=== PATIENT | male | born 1950 | race Caucasian/White ===

== ENCOUNTER 2017-01-05 17:36 | Emergency (ER) | payer MEDICARE, BC, OTHER ==
[~2017-01-05] VITALS: Ht 182.9 cm; Wt 90.9 kg
[~2017-01-05 17:36] MED LIST: AMIO200 PO; CIPR500T93 PO; CLON1 PO; DABI150 PO; PHEN100 PO; PROC60TA PO
[2017-01-05 17:49] VITALS: BP 134/76; PULSE 55; RESP 16; TEMP 98.1; O2SAT 97
--- NOTE | 2017-01-05 17:57 | PD ---
HPI Chief Complaint: Psychiatric Symptoms Time Seen by Provider: 17:45 Travel History International Travel<30 days: No Contact w/Intl Traveler<30days: No Traveled to known affect area: No History of Present Illness HPI This is a 66-year-old male who has a history of documented schizophrenia and prior stroke who presents to the emergency department under a Singh act reportedly having been combative with his correction staff last evening, and having reported that he wanted to kill himself multiple times. Here in the emergency department he says he doesn't remember any of that. He does say he gets depressed from time to time because his daughter at 21. He thinks it' s 2020. He is able to identify that he has at [facility]. He is unable to provide much more history. PFSH Past Medical History Atrial Fibrillation: Yes Cancer: No Cardiovascular Problems: Yes (Afib, HTN, chronic embolism, hyperlipidemia) Cerebrovascular Accident: Yes Dementia: Yes Diabetes: No Diminished Hearing: Yes Deep Vein Thrombosis: Yes Psychiatric: Yes (dementia/SCHIZOPHRENIA, anxiety disorder, depression) Seizures: Yes (EPILEPSY) Triglycerides - High: Yes Past Surgical History AICD: No Body Medical Devices: UNABLE TO OBTAIN Insulin Pump: No Pacemaker: No Social History Alcohol Use: Yes (OCCASIONALLY) Tobacco Use: No Substance Use: No Allergies-Medications (Allergen,Severity, Reaction): Coded Allergies: [place] (Verified Allergy, Unknown, 01/05/17) PT DENIES Reported Meds & Prescriptions Reported Meds & Active Scripts Active Reported Zyprexa (Olanzapine) 5 Mg Tab 5 Mg PO HS Tylenol (Acetaminophen) 325 Mg Tab 325 Mg PO Q4H PRN Procardia XL (Nifedipine) 60 Mg Tab 60 Mg PO DAILY Pradaxa (Dabigatran) 150 Mg Cap 150 Mg PO BID Olanzapine 20 Mg Tab 20 Mg PO HS Milk of Magnesia Liq (Magnesium Hydroxide) 400 Mg/5 Ml Susp 30 Ml PO DAILY PRN Lexapro (Escitalopram Oxalate) 10 Mg Tab 10 Mg PO DAILY Lamictal (Lamotrigine) 200 Mg Tab 200 Mg PO BID Ibuprofen 400 Mg Tab 400 Mg PO Q6H PRN Dilantin (Phenytoin Extended) 100 Mg Cap 200 Mg PO BID Clonazepam 1 Mg Tab 1 Mg PO TID Amiodarone (Amiodarone HCl) 200 Mg Tab 200 Mg PO DAILY Review of Systems ROS Limitations: Poor Historian Physical Exam Narrative GENERAL: Older appearing than stated age, no acute distress SKIN: Focused skin assessment warm and dry. HEAD: Atraumatic. Normocephalic. EYES: Pupils equal and round. No injection or drainage. ENT: Moist mucous membranes NECK: Trachea midline. CARDIOVASCULAR: Regular rate and rhythm. No murmur appreciated. RESPIRATORY: Clear to auscultation. Breath sounds equal bilaterally. GASTROINTESTINAL: Abdomen soft, non-tender, nondistended. MUSCULOSKELETAL: Contracture of the left upper extremity. NEUROLOGICAL: Awake and alert. Mild dysarthria and some expressive aphasia. 3 out of 5 strength in the left upper extremity, 4 out of 5 strength in the left lower extremity PSYCHIATRIC: Intermittently tearful, pleasant and cooperative Data Data Last Documented VS Vital Signs Date Time Temp Pulse Resp B/P Pulse Ox O2 Delivery O2 Flow Rate FiO2 01/05/17 17:49 98.1 55 16 134/76 97 Orders Complete Blood Count With Diff (01/05/17 17:53) Comprehensive Metabolic Panel (01/05/17 17:53) ^ Insert Iv (01/05/17 17:53) Psych Screen (01/05/17 17:53) Drug Screen, Random Urine (01/05/17 17:53) Alcohol (Ethanol) (01/05/17 17:53) Labs Laboratory Tests Test 01/05/17 18:08 White Blood Count 6.4 TH/MM3 Red Blood Count 4.00 MIL/MM3 Hemoglobin 12.4 GM/DL Hematocrit 37.4 % Mean Corpuscular Volume 93.6 FL Mean Corpuscular Hemoglobin 31.0 PG Mean Corpuscular Hemoglobin 33.2 % Concent Red Cell Distribution Width 13.4 % Platelet Count 191 TH/MM3 Mean Platelet Volume 7.3 FL Neutrophils (%) (Auto) 52.7 % Lymphocytes (%) (Auto) 26.1 % Monocytes (%) (Auto) 12.0 % Eosinophils (%) (Auto) 8.5 % Basophils (%) (Auto) 0.7 % Neutrophils # (Auto) 3.4 TH/MM3 Lymphocytes # (Auto) 1.7 TH/MM3 Monocytes # (Auto) 0.8 TH/MM3 Eosinophils # (Auto) 0.5 TH/MM3 Basophils # (Auto) 0.0 TH/MM3 CBC Comment DIFF FINAL Differential Comment Sodium Level 146 MEQ/L Potassium Level 4.1 MEQ/L Chloride Level 110 MEQ/L Carbon Dioxide Level 26.5 MEQ/L Anion Gap 10 MEQ/L Blood Urea Nitrogen 13 MG/DL Creatinine 0.82 MG/DL Estimat Glomerular Filtration 94 ML/MIN Rate Random Glucose 97 MG/DL Calcium Level 8.4 MG/DL Total Bilirubin 0.2 MG/DL Aspartate Amino Transf 12 U/L (AST/SGOT) Alanine Aminotransferase 21 U/L (ALT/SGPT) Alkaline Phosphatase 157 U/L Total Protein 6.3 GM/DL Albumin 3.2 GM/DL Ethyl Alcohol Level LESS THAN 3 MG/DL MDM Medical Decision Making Medical Screen Exam Complete: Yes Emergency Medical Condition: Yes Interpretation(s) Afebrile, no tachycardia, normotensive Mild anemia Mild hypernatremia Differential Diagnosis Dementia, schizophrenia, depression Narrative Course This is a 66-year-old male who has a history of dementia and stroke who presents to the emergency department having reportedly being combative with staff at his correction and making suicidal comments. He does appear somewhat depressed but makes no suicidal comments to me. He is pretty confused. He is cooperative on my exam. He has no active medical issues. He is cleared to be evaluated by psychiatry. Lindsay Hanley MD Jan 05, 2017 17:57
[2017-01-05] MEDS ORDERED: IBUP400T20 PO (18:17)
[2017-01-05] MEDS ORDERED: PRAD150C PO (18:17)
[2017-01-05] MEDS ORDERED: OLAN20TA PO (18:17)
[2017-01-05] MEDS ORDERED: TYLE325T PO (18:17)
[2017-01-05] MEDS ORDERED: LEXA10TA PO (18:17)
[2017-01-05] MEDS ORDERED: MILKSUS PO (18:17)
[2017-01-05] MEDS ORDERED: AMIO200T PO (18:17)
[2017-01-05] MEDS ORDERED: LAMI200T PO (18:17)
[2017-01-05] MEDS ORDERED: ZYPR5TAB PO (18:17)
[2017-01-05] MEDS ORDERED: NIFE1TAB86 PO (18:17)
[2017-01-05] MEDS ORDERED: DILA100C PO (18:17)
[2017-01-05] MEDS ORDERED: CLON1TAB PO (18:17)
[2017-01-05 18:29] LABS: AUTOMATED NEUTROPHIL # 3.4 TH/MM3 (1.8-7.7); BASOPHIL % 0.7 % (0.0-2.0); EOSINOPHIL # 0.5 TH/MM3 (0-0.4); EOSINOPHIL % 8.5 % (0.0-4.0); HEMATOCRIT 37.4 % (39.0-51.0); HEMO FLAGS DIFF FINAL; LYMPH % 26.1 % (9.0-44.0); LYMPHOCYTE # 1.7 TH/MM3 (1.0-4.8); MEAN CELL VOLUME 93.6 FL (80.0-100.0); MEAN CORPUSCULAR HGB CONC 33.2 % (32.0-36.0); NEUT % 52.7 % (16.0-70.0); PLATELET COUNT 191 TH/MM3 (150-450); RED CELL DISTRIBUTION WIDTH 13.4 % (11.6-17.2); WHITE BLOOD COUNT 6.4 TH/MM3 (4.0-11.0)
[2017-01-05 19:05] LABS: ANION GAP 10 MEQ/L (5-15); AST (GOT) 12 U/L (15-37); BICARBONATE 26.5 MEQ/L (21.0-32.0); BLOOD UREA NITROGEN 13 MG/DL (7-18); CHLORIDE 110 MEQ/L (98-107); GLOMERULAR FILTRATION RATE 94 ML/MIN (>89); POTASSIUM 4.1 MEQ/L (3.5-5.1); SODIUM (NA) 146 MEQ/L (136-145)
[2017-01-05 19:08] LABS: ALKALINE PHOSPHATASE 157 U/L (45-117); ALT (GPT) 21 U/L (12-78); TOTAL BILIRUBIN ADULT 0.2 MG/DL (0.2-1.0)
[2017-01-05 20:17] VITALS: BP 126/79; PULSE 55; RESP 16; O2SAT 95
[2017-01-05 23:40] LABS: AMPHETAMINE, URINE NEG (NEG); BARBITURATES, URINE NEG (NEG); COCAINE, URINE NEG (NEG)
[2017-01-06 09:02] VITALS: BP 132/79; PULSE 55; RESP 16; TEMP 97.7; O2SAT 98
== END 2017-01-06 12:47 ==
LOC: NEPD 17:36
DX: F03.90 Unspecified dementia, unspecified severity, without behavioral disturbance, psychotic disturbance, mood disturbance, and anxiety (principal); D64.9 Anemia, unspecified; E87.0 Hyperosmolality and hypernatremia; F20.9 Schizophrenia, unspecified; I48.91 Unspecified atrial fibrillation; E78.5 Hyperlipidemia, unspecified; I10 Essential (primary) hypertension; Z86.718 Personal history of other venous thrombosis and embolism
CPT/HCPCS: 80053; 80307; 85025; 99284

== ENCOUNTER 2017-03-26 07:25 | Inpatient (IN) | payer MEDICARE, BC ==
[2017-03-26] VITALS (13 sets, daily range): BP systolic 97–140; BP diastolic 54–87; PULSE 53–102; RESP 15–19; TEMP 97.3; O2SAT 92–98
[~2017-03-26 07:25] MED LIST changes: -AMIO200 PO; +AMIO200T PO; -CIPR500T93 PO; -CLON1 PO; +CLON1TAB PO; -DABI150 PO; +DILA100C PO; +IBUP400T20 PO; +LAMI200T PO; +LEXA10TA PO; +MILKSUS PO; +NIFE1TAB86 PO; +OLAN20TA PO; -PHEN100 PO; +PRAD150C PO; -PROC60TA PO; +TYLE325T PO; +ZYPR5TAB PO
[2017-03-26] MEDS ORDERED: LORazepam 2 MG/ML VIAL ONE (07:29)
[2017-03-26] MEDS ORDERED: SODIUM CHLOR 0.9% 1000 ML INJ 1,000 ML IV SCH (07:33)
[2017-03-26] MEDS ORDERED: SODIUM CHLORIDE 0.9% FLUSH 5 ML FLUSH IV FLUSH PRN (07:45)
[2017-03-26] MEDS ORDERED: PHENYTOIN INJ 1,500 MG in SODIUM CHLOR 0.9% 250 ML INJ 250 ML IV ONE (07:45)
[2017-03-26] MEDS ORDERED: LORazepam 2 MG/ML VIAL IV PUSH ONE ×2 (08:00→14:00)
[2017-03-26 08:04] LABS: AUTOMATED NEUTROPHIL # 5.8 TH/MM3 (1.8-7.7); BASOPHIL # 0.1 TH/MM3 (0-0.2); BASOPHIL % 0.7 % (0.0-2.0); EOSINOPHIL # 0.5 TH/MM3 (0-0.4); EOSINOPHIL % 3.8 % (0.0-4.0); HEMATOCRIT 44.7 % (39.0-51.0); HEMO FLAGS DIFF FINAL; LYMPH % 39.4 % (9.0-44.0); LYMPHOCYTE # 4.7 TH/MM3 (1.0-4.8); MEAN CELL VOLUME 94.4 FL (80.0-100.0); MEAN CORPUSCULAR HEMOGLOBIN 31.3 PG (27.0-34.0); MEAN CORPUSCULAR HGB CONC 33.2 % (32.0-36.0); MONO % 7.8 % (0.0-8.0); NEUT % 48.3 % (16.0-70.0); PLATELET COUNT 243 TH/MM3 (150-450); RED BLOOD COUNT 4.73 MIL/MM3 (4.50-5.90); RED CELL DISTRIBUTION WIDTH 13.3 % (11.6-17.2); WHITE BLOOD COUNT 12.1 TH/MM3 (4.0-11.0)
[2017-03-26 08:06] LABS: BLOOD, URINE NEG (NEG); GLUCOSE,URINE NEG (NEG); KETONE, URINE NEG (NEG); NITRITE,URINE NEG (NEG); URINE COLOR YELLOW (YELLW/STRAW)
[2017-03-26 08:08] LABS: COMMENT (UR) CATH-CULT NOT IND; CULTURE IF INDICATED CATH CULTURE NOT IND
[2017-03-26] MEDS ORDERED: MIRTA15 PO (08:12)
[2017-03-26] MEDS ORDERED: FOLI1TAB6 PO (08:12)
[2017-03-26] MEDS ORDERED: GABA400C5 PO (08:12)
[2017-03-26] MEDS ORDERED: QUET1TAB8 PO (08:12)
[2017-03-26] MEDS ORDERED: VITA100T54 PO (08:12)
[2017-03-26] MEDS ORDERED: MULT-182 PO (08:12)
[2017-03-26] MEDS ORDERED: AMLO10TA2 PO (08:12)
[2017-03-26] MEDS ORDERED: APIX5TAB PO (08:12)
[2017-03-26 08:16] LABS: PROTHROMBIN TIME - PATIENT 11.4 SEC (9.8-11.6)
--- NOTE | 2017-03-26 08:20 | RADRPT ---
EXAM DATE/TIME: 03/26/2017 08:02 [facility] COMPARISON: CT BRAIN W/O CONTRAST, February 15, 2015, 22:18. INDICATIONS : Altered mental status. RADIATION DOSE: 56.35 CTDIvol (mGy) MEDICAL HISTORY : Seizures. SURGICAL HISTORY : Craniotomy. ENCOUNTER: Initial ACUITY: 1 day PAIN SCALE: Non-responsive LOCATION: cranial TECHNIQUE: Multiple contiguous axial images were obtained of the head. Using automated exposure control and adj ustment of the mA and/or kV according to patient size, radiation dose was kept as low as reasonably a chievable to obtain optimal diagnostic quality images. DICOM format image data is available electro nically for review and comparison. FINDINGS: CEREBRUM: Redemonstration of right frontal, temporal, and posterior parietal encephalomalacia. Redemonstration left temporoparietal encephalomalacia. Associated ex vacuo dilatation of the right lateral ventricle and temporal horn of the left lateral ventricle. The ventricles are otherwise normal in size given de gree of atrophy. No evidence of midline shift, mass lesion, hemorrhage or acute infarction. No extr a-axial fluid collections are seen. POSTERIOR FOSSA: The cerebellum and brainstem are intact. The 4th ventricle is midline. The cerebellopontine angle i s unremarkable. EXTRACRANIAL: The visualized portion of the orbits is intact. SKULL: Postsurgical features of prior right parietal craniotomy. CONCLUSION: 1. Prominent bilateral old ischemic changes. 2. No acute intracranial abnormality or significant interval change. Oskar Alex MD on March 26, 2017 at 8:14 Board Certified Radiologist. This report was verified electronically.
[2017-03-26 08:21] LABS: ALT (GPT) 31 U/L (12-78); ANION GAP 20 MEQ/L (5-15); AST (GOT) 19 U/L (15-37); BICARBONATE 14.9 MEQ/L (21.0-32.0); BLOOD UREA NITROGEN 13 MG/DL (7-18); CHLORIDE 108 MEQ/L (98-107); GLOMERULAR FILTRATION RATE 47 ML/MIN (>89); POTASSIUM 3.1 MEQ/L (3.5-5.1); SODIUM (NA) 143 MEQ/L (136-145)
[2017-03-26 08:31] LABS: ALKALINE PHOSPHATASE 199 U/L (45-117); TOTAL BILIRUBIN ADULT 0.4 MG/DL (0.2-1.0)
[2017-03-26 08:35] LABS: CREATINE KINASE 59 U/L (39-308)
--- NOTE | 2017-03-26 08:41 | RADRPT ---
EXAM DATE/TIME: 03/26/2017 08:25 [facility] COMPARISON: CHEST SINGLE AP, June 24, 2015, 4:06. INDICATIONS : Syncope. MEDICAL HISTORY : Seizures. SURGICAL HISTORY : Unobtainable. ENCOUNTER: Initial ACUITY: 1 day PAIN SCORE: Non-responsive. LOCATION: Bilateral chest FINDINGS: Lungs are slightly hypoaerated. No significant focal pleural or parenchymal opacities. Cardiomediasti nal contours are within normal limits given technique and degree of lung expansion. Remainder of the exam is unchanged. CONCLUSION: No acute cardiopulmonary disease. Oskar Alex MD on March 26, 2017 at 8:38 Board Certified Radiologist. This report was verified electronically.
[2017-03-26] MEDS ORDERED: POTASSIUM CHLOR 20 MEQ PREMIX 100 ML IV ONE (08:45)
[2017-03-26] MEDS ORDERED: SODIUM CHLOR 0.9% 1000 ML INJ 1,000 ML IV ONE (08:45)
[2017-03-26] MEDS ORDERED: MISCELLANEOUS NURSING INFORMATION XX SCH (10:15)
[2017-03-26] MEDS ORDERED: CHLORHEXIDINE GLUCONATE 2 % 1 PACK (2 CLOTHS) TOP PRN (10:15)
[2017-03-26] MEDS ORDERED: POTASSIUM PHOSPHATE MONOBASIC 500 MG TAB PO PRN (10:15)
[2017-03-26] MEDS ORDERED: RESP: ALBUTEROL 2.5 MG/IPRATROPIUM 0.5 MG NEB (PRN) INH (10:15)
[2017-03-26] MEDS ORDERED: MAGNESIUM SULFATE INJ 4 GM in SODIUM CHLORIDE 0.9% INJ 92 ML IV PRN (10:15)
[2017-03-26] MEDS ORDERED: POTASSIUM CHLOR 40 MEQ PREMIX 100 ML IV PRN ×2 (10:15)
[2017-03-26] MEDS ORDERED: POTASSIUM CHLOR 20 MEQ PREMIX 100 ML IV PRN (10:15)
[2017-03-26] MEDS ORDERED: MAGNESIUM SULFATE INJ 2 GM in SODIUM CHLORIDE 0.9% INJ 96 ML IV PRN (10:15)
[2017-03-26] MEDS ORDERED: POTASSIUM PHOSPHATE MONOBASIC 500 MG TAB PO/TUBE PRN (10:15)
[2017-03-26] MEDS ORDERED: SODIUM PHOSPHATE INJ 30 MMOL in SODIUM CHLOR 0.9% 250 ML INJ 240 ML IV PRN (10:15)
[2017-03-26] MEDS ORDERED: POTASSIUM PHOSPHATE INJ 30 MMOL in SODIUM CHLOR 0.9% 250 ML INJ 250 ML IV PRN (10:15)
[2017-03-26] MEDS ORDERED: MAGNESIUM OXIDE 400 MG TAB PO PRN (10:15)
--- NOTE | 2017-03-26 10:27 | PD ---
HPI Chief Complaint: Seizure Time Seen by Provider: 07:33 Travel History International Travel<30 days: No Contact w/Intl Traveler<30days: No Traveled to known affect area: No History of Present Illness HPI 66-year-old male came to the emergency room with history of seizure disorder brought by EMS from a longterm. The history was limited and patient was in no condition to give any meaningful history. As per EMS patient was having a seizure for 20-30 minutes. He has history of seizure and supposed to get Dilantin but he did not get his dose yesterday. Patient was given 2 mg of IM Ativan followed by 2 mg of IV Ativan by EMS. However when he arrived he still seemed like he was having focal seizure of his right upper extremity as well as deviated gaze. He was unresponsive. He has underlying history of stroke as well but I do not know what his underlying baseline mental status is. Vital signs were within acceptable limits. Blood sugar was 120. PFSH Past Medical History Narrative Medical List of his past medical, surgical, social and family history was reviewed from the nursing note. Atrial Fibrillation: Yes Anxiety: Yes Depression: Yes Cancer: No Cardiovascular Problems: Yes (Afib, HTN, chronic embolism, hyperlipidemia) Cerebrovascular Accident: Yes Dementia: Yes Diabetes: No Diminished Hearing: Yes Deep Vein Thrombosis: Yes Hypertension: Yes (UNABLE TO OBTAIN) Psychiatric: Yes (dementia/SCHIZOPHRENIA, anxiety disorder, depression) Schizophrenia: Yes Seizures: Yes (EPILEPSY) Triglycerides - High: Yes ?: Not Past Surgical History AICD: No Body Medical Devices: UNABLE TO OBTAIN Insulin Pump: No Pacemaker: No Social History Alcohol Use: No Tobacco Use: No Substance Use: No Allergies-Medications (Allergen,Severity, Reaction): Coded Allergies: strawberry (Unverified Allergy, Unknown, 03/26/17) PT DENIES Comments List of his allergies reviewed from the nursing note. Reported Meds & Prescriptions Reported Meds & Active Scripts Active Reported Mirtazapine 15 Mg Tab 15 Mg PO HS Gabapentin 400 Mg Cap 400 Cap PO TID Quetiapine (Quetiapine Fumarate) 100 Mg Tab 100 Mg PO BID Vitamin B-1 (Thiamine HCl) 100 Mg Tab 100 Mg PO DAILY [place] Multivitamin with Mineral (Multivitamin with Minerals) 1 Each Tablet 1 Tab PO DAILY Folic Acid 1 Mg Tablet 1 Mg PO DAILY Eliquis (Apixaban) 5 Mg Tab 5 Mg PO DAILY Amlodipine (Amlodipine Besylate) 10 Mg Tab 10 Mg PO DAILY Tylenol (Acetaminophen) 325 Mg Tab 325 Mg PO Q4H PRN Dilantin (Phenytoin Extended) 100 Mg Cap 200 Mg PO BID Amiodarone (Amiodarone HCl) 200 Mg Tab 200 Mg PO DAILY Narrative Medication List of his home medications reviewed from the nursing note. Review of Systems Except as stated in HPI: all other systems reviewed are Neg Physical Exam Narrative GENERAL: Unresponsive, seizing, moderate distress SKIN: Warm and diaphoretic HEAD: Atraumatic. Normocephalic. EYES: Pupils equal and round. No scleral icterus. No injection or drainage. Eyes gazing to the right ENT: No nasal bleeding or discharge. Mucous membranes pink and moist. NECK: Trachea midline. No JVD. CARDIOVASCULAR: Regular rate and rhythm. No murmur appreciated. RESPIRATORY: No accessory muscle use. Clear to auscultation. Breath sounds equal bilaterally. GASTROINTESTINAL: Abdomen soft, non-tender, nondistended. Hepatic and splenic margins not palpable. MUSCULOSKELETAL: No obvious deformities. No clubbing. No cyanosis. No edema. NEUROLOGICAL: GCS of a 12 seizure in the right upper extremity seizure PSYCHIATRIC: Unable to assess Data Data Last Documented VS Vital Signs Date Time Temp Pulse Resp B/P (MAP) Pulse Ox O2 Delivery O2 Flow Rate FiO2 03/26/17 09:30 62 15 97/54 (68) 98 Non-Rebreather 7.00 03/26/17 07:38 97.3 Orders Orders Lorazepam Inj (Ativan Inj) (03/26/17 07:29) Ammonia (03/26/17 07:33) Complete Blood Count With Diff (03/26/17 07:33) Comprehensive Metabolic Panel (03/26/17 07:33) Creatine Kinase (Cpk) (03/26/17 07:33) Prothrombin Time / Inr (Pt) (03/26/17 07:33) Troponin I (03/26/17 07:33) Thyroid Stimulating Hormone (03/26/17 07:33) Urinalysis - C+S If Indicated (03/26/17 07:33) Chest, Single Ap (03/26/17 07:33) Ct Brain W/O Iv Contrast(Rout) (03/26/17 07:33) Blood Glucose (03/26/17 07:33) Ecg Monitoring (03/26/17 07:33) Iv Access Insert/Monitor (03/26/17 07:33) Oximetry (03/26/17 07:33) Sodium Chloride 0.9% Flush (Ns Flush) (03/26/17 07:45) Sodium Chlor 0.9% 1000 Ml Inj (Ns 1000 M (03/26/17 07:33) Phenytoin Inj (Dilantin Inj) (03/26/17 07:45) Phenytoin (Dilantin) (03/26/17 07:33) Lorazepam Inj (Ativan Inj) (03/26/17 08:00) Sodium Chlor 0.9% 1000 Ml Inj (Ns 1000 M (03/26/17 08:45) Potassium Chlor 20 Meq Premix (Kcl 20 Me (03/26/17 08:45) Consult Neurology (03/26/17 ) Cbc No Diff, Includes Plts (03/27/17 05:00) Cbc No Diff, Includes Plts (03/28/17 05:00) Cbc No Diff, Includes Plts (03/29/17 05:00) Cbc No Diff, Includes Plts (03/30/17 05:00) Cbc No Diff, Includes Plts (03/31/17 05:00) Cbc No Diff, Includes Plts (04/01/17 05:00) Cbc No Diff, Includes Plts (04/02/17 05:00) Basic Metabolic Panel (Bmp) (03/27/17 05:00) Basic Metabolic Panel (Bmp) (03/28/17 05:00) Basic Metabolic Panel (Bmp) (03/29/17 05:00) Basic Metabolic Panel (Bmp) (03/30/17 05:00) Basic Metabolic Panel (Bmp) (03/31/17 05:00) Basic Metabolic Panel (Bmp) (04/01/17 05:00) Basic Metabolic Panel (Bmp) (04/02/17 05:00) Inpatient Certification (03/26/17 10:09) Resp Ezpap/Pep Therapy (03/26/17 10:09) Resp Acapella/Pep/Chest Vibra (03/26/17 10:09) Resp Incentive Spirometry (03/26/17 10:09) Nursing Bedside Swallow Assess .ONCE (03/26/17 10:09) ^ Other Nursing Orders (03/26/17 10:09) ^ Other Nursing Orders (03/26/17 10:09) ^ Other Nursing Orders (03/26/17 10:09) Magnesium Oxide (Mag-Ox) (03/26/17 10:15) Magnesium Sulfate Inj (Magnesium Sulfate (03/26/17 10:15) Magnesium Sulfate Inj (Magnesium Sulfate (03/26/17 10:15) Potassium Chlor 20 Meq Premix (Kcl 20 Me (03/26/17 10:15) Potassium Chlor 20 Meq Premix (Kcl 20 Me (03/26/17 10:15) Potassium Chlor 40 Meq Premix (Kcl 40 Me (03/26/17 10:15) Potassium Chlor 40 Meq Premix (Kcl 40 Me (03/26/17 10:15) Potassium Phosphate (K-Phos) (03/26/17 10:15) Potassium Phosphate (K-Phos) (03/26/17 10:15) Potassium Phosphate Inj (Potassium Phosp (03/26/17 10:15) Sodium Phosphate Inj (Sodium Phosphate I (03/26/17 10:15) ^ Medication Admin Instruction (03/26/17 10:09) Notify Dr: Other (03/26/17 10:09) Neuro Checks [email or web address].Q1H (03/26/17 10:09) Code Status (03/26/17 10:09) Activity Bed Rest (03/26/17 10:09) Elevate Head Of Bed (03/26/17 10:09) Sodium Chlor 0.9% 1000 Ml Inj (Ns 1000 M (03/26/17 10:09) Ondansetron Inj (Zofran Inj) (03/26/17 11:00) Albuterol-Ipratropium Neb (Duoneb Neb) (03/26/17 10:15) Electronics Assembler And Tester / Telemetry [email or web address] (03/26/17 10:09) ^ Initiate Protocol (03/26/17 10:09) Instruction (03/26/17 10:09) [facility] Nursing Information (03/26/17 10:15) Chlorhexidine 2% Cloth (Chlorhexidine 2% (03/27/17 04:00) Chlorhexidine 2% Cloth (Chlorhexidine 2% (03/26/17 10:15) Mrsa Pcr Surveillance (03/26/17 10:09) Docusate Sodium-Senna (Iesha-Colace) (03/26/17 21:00) Amiodarone (Cordarone) (03/27/17 09:00) Amlodipine (Norvasc) (03/27/17 09:00) Apixaban (Eliquis) (03/27/17 09:00) Folic Acid (Folate) (03/27/17 09:00) Gabapentin (Neurontin) (03/26/17 13:00) Mirtazapine (Remeron) (03/26/17 21:00) Phenytoin (Dilantin) (03/26/17 21:00) Quetiapine (Seroquel) (03/26/17 21:00) Thiamine (Vit B1) (Vitamin B1) (03/27/17 09:00) Multivitamins-Minerals Therap (Theragran (03/27/17 09:00) Admit Order (Ed Use Only) (03/26/17 10:20) Labs Laboratory Tests Test 03/26/17 07:35 03/26/17 09:00 White Blood Count 12.1 TH/MM3 Red Blood Count 4.73 MIL/MM3 Hemoglobin 14.8 GM/DL Hematocrit 44.7 % Mean Corpuscular Volume 94.4 FL Mean Corpuscular Hemoglobin 31.3 PG Mean Corpuscular Hemoglobin Concent 33.2 % Red Cell Distribution Width 13.3 % Platelet Count 243 TH/MM3 Mean Platelet Volume 7.3 FL Neutrophils (%) (Auto) 48.3 % Lymphocytes (%) (Auto) 39.4 % Monocytes (%) (Auto) 7.8 % Eosinophils (%) (Auto) 3.8 % Basophils (%) (Auto) 0.7 % Neutrophils # (Auto) 5.8 TH/MM3 Lymphocytes # (Auto) 4.7 TH/MM3 Monocytes # (Auto) 0.9 TH/MM3 Eosinophils # (Auto) 0.5 TH/MM3 Basophils # (Auto) 0.1 TH/MM3 CBC Comment DIFF FINAL Differential Comment Prothrombin Time 11.4 SEC Prothromb Time International Ratio 1.0 RATIO Urine Color YELLOW Urine Turbidity CLEAR Urine pH 7.0 Urine Specific [place]ienzi 1.018 Urine Protein NEG mg/dL Urine Glucose (UA) NEG mg/dL Urine Ketones NEG mg/dL Urine Occult Blood NEG Urine Nitrite NEG Urine Bilirubin NEG Urine Urobilinogen LESS THAN 2.0 MG/DL Urine Leukocyte Esterase NEG Urine RBC 2 /hpf Urine WBC 1 /hpf Microscopic Urinalysis Comment CATH-CULT NOT IND Blood Urea Nitrogen 13 MG/DL Creatinine 1.48 MG/DL Random Glucose 150 MG/DL Total Protein 7.2 GM/DL Albumin 3.4 GM/DL Calcium Level 8.7 MG/DL Alkaline Phosphatase 199 U/L Aspartate Amino Transf (AST/SGOT) 19 U/L Alanine Aminotransferase (ALT/SGPT) 31 U/L Total Bilirubin 0.4 MG/DL Sodium Level 143 MEQ/L Potassium Level 3.1 MEQ/L Chloride Level 108 MEQ/L Carbon Dioxide Level 14.9 MEQ/L Anion Gap 20 MEQ/L Estimat Glomerular Filtration Rate 47 ML/MIN Total Creatine Kinase 59 U/L Troponin I LESS THAN 0.02 NG/ML Thyroid Stimulating Hormone 3rd Gen 0.120 uIU/ML Phenytoin (Dilantin) Level 6.6 MCG/ML Ammonia 27 MCMOL/L MDM Medical Decision Making Medical Screen Exam Complete: Yes Emergency Medical Condition: Yes Medical Record Reviewed: Yes Interpretation(s) Twelve-lead EKG was reviewed by me. Normal sinus rhythm, first-degree AV block , lateral ST segment depression, normal axis. Heart rate of 96 bpm. Differential Diagnosis Status epilepticus, intracranial bleed, electrolyte abnormality Narrative Course 10 AM blood test results are back. Patient's potassium was low which I have ordered for placement. He has some renal insufficiency which could be from dehydration. Patient has metabolic acidosis probably from prolonged seizure. I had to give him 2 mg of IV Ativan after arrival initially after which patient has not had anymore seizures. Head CT is essentially negative for anything acute. I have given him a liter of fluid bolus. Patient continues to have a GCS of 10. I'm uncomfortable admitting him to the regular floor. I discussed the case with the stack clerk and he has agreed and accepted the case. Patient' s Dilantin level was low. I've given him a loading dose of 15 mg/kg. Critical Care Narrative Aggregate critical care time was 60 minutes. Time to perform other separately billable procedures was not included in the critical care time. My time did not include minutes spent treating any other patients simultaneously or on activities that did not directly contribute to the patient's treatment. The services I provided to this patient were to treat and/or prevent clinically significant deterioration that could result in: Status epilepticus, airway monitoring I provided critical care services requiring my management, as noted below: Chart data review, documentation time, medication orders and management, vital sign assessments/reviewing monitor data, ordering and reviewing lab tests, ordering and interpreting/reviewing x-rays and diagnostic studies, care of the patient and discussion of the patient with the admitting physicians. Procedures EKG Prior to Arrival: No Physician Communication Physician Communication Dr. Escobar Diagnosis Primary Impression: Status epilepticus Additional Impressions: Altered mental status Qualified Codes: R40.1 - Stupor Dehydration Metabolic acidosis Admitting Information Admitting Physician Requests: it Randell Beard MD Mar 26, 2017 10:27
[2017-03-26] MEDS ORDERED: ONDANSETRON HCL 4 MG/2 ML VIAL IV PRN (11:00)
[2017-03-26] MEDS: SODIUM CHLOR 0.9% 1000 ML INJ 1,000 ML IV SCH ×2 (11:30→22:39)
[2017-03-26] MEDS: GABAPENTIN 400 MG CAP PO SCH ×2 (13:35→18:00)
[2017-03-26] MEDS ORDERED: PROPOFOL 500 MG/50 ML INJ 50 ML ONE (13:56)
[2017-03-26] MEDS ORDERED: HALOPERIDOL LACTATE 5 MG/ML AMP IV PRN (14:00)
[2017-03-26] MEDS ORDERED: DEXMEDETOMIDINE HCL 200 MCG/2 ML VIAL ONE (14:10)
[2017-03-26] MEDS ORDERED: DEXMEDETOMIDINE INJ 1,000 MCG in SODIUM CHLOR 0.9% 250 ML INJ 240 ML IV SCH (14:15)
--- NOTE | 2017-03-26 16:08 | PD.CONS ---
History of Present Illness Service Neurology Consult Requested By [facility] Reason for Consult seizures, confusion Primary Care Physician Unknown History of Present Illness 66-year-old male came to the emergency room with history of seizure disorder brought by EMS from a [facility] for seizure activity. hx of dementia, TBI, schizophrenia. Apparently non-compliant with medications. Stopped taking his sz meds x 1-2 days. dil 6.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 on eliquis for afib and hx of stroke in the past. at baseline, has confusion, hallucinates, limited left ue movement per caregiver next to him. PFSH Atrial Fibrillation: Yes Anxiety: Yes Depression: Yes Cardiovascular Problems: Yes (Afib, HTN, chronic embolism, hyperlipidemia) Cerebrovascular Accident: Yes Dementia: Yes Diminished Hearing: Yes Deep Vein Thrombosis: Yes Hypertension: Yes (UNABLE TO OBTAIN) Psychiatric: Yes (dementia/SCHIZOPHRENIA, anxiety disorder, depression) Schizophrenia: Yes Seizures: Yes (EPILEPSY) Past Surgical History AICD: No Body Medical Devices: UNABLE TO OBTAIN Insulin Pump: No Pacemaker: No Social History Alcohol Use: No Tobacco Use: No Substance Use: No Allergies-Medications (Allergen,Severity, Reaction): Coded Allergies: strawberry (Unverified Allergy, Unknown, 03/26/17) Comments List of his allergies reviewed from the nursing note. Reported Meds & Prescriptions Reported Meds & Active Scripts Active Reported Mirtazapine 15 Mg Tab 15 Mg PO HS Gabapentin 400 Mg Cap 400 Cap PO TID Quetiapine (Quetiapine Fumarate) 100 Mg Tab 100 Mg PO BID Vitamin B-1 (Thiamine HCl) 100 Mg Tab 100 Mg PO DAILY Rocco Multivitamin with Mineral (Multivitamin with Minerals) 1 Each Tablet 1 Tab PO DAILY Folic Acid 1 Mg Tablet 1 Mg PO DAILY Eliquis (Apixaban) 5 Mg Tab 5 Mg PO DAILY Amlodipine (Amlodipine Besylate) 10 Mg Tab 10 Mg PO DAILY Tylenol (Acetaminophen) 325 Mg Tab 325 Mg PO Q4H PRN Dilantin (Phenytoin Extended) 100 Mg Cap 200 Mg PO BID Amiodarone (Amiodarone HCl) 200 Mg Tab 200 Mg PO DAILY Narrative Medication List of his home medications reviewed from the nursing note. Review of Systems Except as stated in HPI: pt somnolent, unable to give Review of Systems All other ROS: ROS reviewed as documented in chart Past Family Social History Allergies: Coded Allergies: strawberry (Unverified Allergy, Unknown, 03/26/17) PT DENIES Active Ordered Medications Current Medications Medications (Trade) Dose Ordered Sig/Eduardo Route Start Time Stop Time Status Last Admin (NS Flush) 2 ml UNSCH PRN IV FLUSH 03/26/17 07:45 (Mag-Ox) 800 mg UNSCH PRN PO 03/26/17 10:15 Magnesium Sulfate 4 gm/Sodium Chloride 100 ml @ 50 mls/hr UNSCH PRN IV 03/26/17 10:15 Magnesium Sulfate 2 gm/Sodium Chloride 100 ml @ 50 mls/hr UNSCH PRN IV 03/26/17 10:15 Potassium Chloride 100 ml @ 50 mls/hr Q2H PRN IV 03/26/17 10:15 Potassium Chloride 100 ml @ 50 mls/hr Q2H PRN IV 03/26/17 10:15 Potassium Chloride 100 ml @ 50 mls/hr Q2H PRN IV 03/26/17 10:15 Potassium Chloride 100 ml @ 25 mls/hr UNSCH PRN IV 03/26/17 10:15 (K-Phos) 2,000 mg Q4H PRN PO 03/26/17 10:15 (K-Phos) 2,000 mg UNSCH PRN PO/TUBE 03/26/17 10:15 Potassium Phosphate 30 mmol/ Sodium Chloride 260 ml @ 42 mls/hr UNSCH PRN IV 03/26/17 10:15 Sodium Phosphate 30 mmol/Sodium Chloride 250 ml @ 42 mls/hr UNSCH PRN IV 03/26/17 10:15 Sodium Chloride 1,000 ml @ 84 mls/hr [id number] IV 03/26/17 10:09 03/26/17 11:30 (Zofran Inj) 4 mg Q6H PRN IV 03/26/17 11:00 (Duoneb Neb) 1 ampule Q2HR NEB PRN INH 03/26/17 10:15 Miscellaneous Information 1 [id number] XX 03/26/17 10:15 (Chlorhexidine 2% Cloth) 3 pack Taper DAILY@04 TOP 03/27/17 04:00 03/23/18 03:59 (Chlorhexidine 2% Cloth) 3 pack UNSCH PRN TOP 03/26/17 10:15 (Iesha-Colace) 1 tab BID PO 03/26/17 21:00 (Cordarone) 200 mg DAILY PO 03/27/17 09:00 (Norvasc) 10 mg DAILY PO 03/27/17 09:00 (Folate) 1 mg DAILY PO 03/27/17 09:00 (Neurontin) 400 mg TID PO 03/26/17 13:00 03/26/17 13:35 (Remeron) 15 mg HS PO 03/26/17 21:00 (Dilantin) 200 mg BID PO 03/26/17 21:00 (SEROquel) 100 mg BID PO 03/26/17 21:00 (Vitamin B1) 100 mg DAILY PO 03/27/17 09:00 (Theragran M Tab) 1 tab DAILY PO 03/27/17 09:00 (Eliquis) 2.5 mg BID PO 03/26/17 21:00 (Haldol Inj) 5 mg Q4H PRN IV 03/26/17 14:00 Dexmedetomidine HCl 1000 mcg/ Sodium Chloride 250 ml @ 0 mls/hr TITRATE IV 03/26/17 14:15 03/26/17 14:58 Exam I&O / VS 03/26/17 03/26/17 03/27/17 15:00 23:00 07:00 Intake Total 2100 ml Output Total 600 ml Balance 1500 ml Intake IV Total 2100 ml Output Urine Total 600 ml # Voids 1 Vital Signs Date Time Temp Pulse Resp B/P (MAP) Pulse Ox O2 Delivery O2 Flow Rate FiO2 03/26/17 13:45 03/26/17 13:30 62 19 140/87 (104) 97 Nasal Cannula 2.00 03/26/17 12:30 64 19 134/82 (99) 97 Nasal Cannula 2.00 03/26/17 11:30 63 18 126/81 (96) 97 Nasal Cannula 2.00 03/26/17 10:30 61 18 108/61 (77) 98 Nasal Cannula 2.00 03/26/17 09:30 62 15 97/54 (68) 98 Non-Rebreather 7.00 03/26/17 08:30 20 96 Non-Rebreather 03/26/17 08:30 61 19 99/55 (70) 94 Non-Rebreather 15.00 03/26/17 07:38 97.3 98 18 128/73 (91) 98 2.00 03/26/17 07:38 96 18 128/73 (91) 96 Nasal Cannula 3.00 03/26/17 07:31 97.3 102 18 132/80 (97) 92 Exam Comments somnolent, on precedex per rn, arousable, grimaces and states a few words, ou 3mm sluggish, not following, neck supple, boles to gravity, planterflexor, no clonus Review/Management Diagnosis/Plan: (1) Seizure disorder ICD Codes: G40.909 - Seizure disorder Status: Acute Plan: not compliant with medication/ renal failure also, on seroquel which could lower sz threshold recs eeg iv cerebryx low tsh- per medical follow exam (2) Vascular dementia ICD Codes: F01.50 - Vascular dementia without behavioral disturbance Status: Acute (3) Atrial fibrillation ICD Codes: I48.91 - Atrial fibrillation Status: Acute (4) History of traumatic brain injury ICD Codes: Z87.820 - History of traumatic brain injury Status: Acute (5) Schizophrenia ICD Codes: F20.9 - Schizophrenia Status: Acute Problem Qualifiers (1) Vascular dementia: Qualified Codes: F01.51 - Vascular dementia with behavioral disturbance Cedrick Miner MD Mar 26, 2017 16:07
[2017-03-26] MEDS ORDERED: FOSPHENYTOIN INJ 1,000 MGPE in SODIUM CHLORIDE 0.9% INJ 50 ML IV ONE (16:30)
--- NOTE | 2017-03-26 19:48 | HHI.HP ---
HPI Service Critical Care Medicine Primary Care Physician Unknown Admission Diagnosis status epilepticus, altered mental status Diagnosis: Chief Complaint: seizures Travel History International Travel<30 Days: No Contact w/Intl Traveler <30 Da: No Traveled to Known Affected Are: No History of Present Illness This is a 66yM with history of schizophrenia, afib, and seizure disorders who presented to the ED from his SNF after he had medication noncompliance x 2 days and then presented with seizures. Patient was given serial ativan doses. he was protecting his airway, but he was somnolent. he is admitted to ICU for close monitoring. unfortunately, no information can be obtained from the patient. I evaluated him on admission to the ICU. On admission to the ICU, he was not somnolent but aggressive and combative. Review of Systems ROS Limitations: Clinical Condition, Combative, Psychotic Past Family Social History Allergies: Coded Allergies: strawberry (Unverified Allergy, Unknown, 03/26/17) PT DENIES Past Medical History Patient's past medical history is unobtainable due to his clinical condition. Per chart review: Atrial fibrillation Anxiety Depression Hypertension Chronic embolism's Hyperlipidemia Dementia Prior CVA History of DVT Schizophrenia Epilepsy Past Surgical History Past surgical history is unobtainable from the patient due to his clinical condition. Reported Medications Complete home medication list is unobtainable from the patient due to his clinical condition. Per chart review: Mirtazapine 15 Mg Tab 15 Mg PO HS Gabapentin 400 Mg Cap 400 Cap PO TID Quetiapine (Quetiapine Fumarate) 100 Mg Tab 100 Mg PO BID Vitamin B-1 (Thiamine HCl) 100 Mg Tab 100 Mg PO DAILY Rocco Multivitamin with Mineral (Multivitamin with Minerals) 1 Each Tablet 1 Tab PO DAILY Folic Acid 1 Mg Tablet 1 Mg PO DAILY Eliquis (Apixaban) 5 Mg Tab 5 Mg PO DAILY Amlodipine (Amlodipine Besylate) 10 Mg Tab 10 Mg PO DAILY Tylenol (Acetaminophen) 325 Mg Tab 325 Mg PO Q4H PRN Dilantin (Phenytoin Extended) 100 Mg Cap 200 Mg PO BID Amiodarone (Amiodarone HCl) 200 Mg Tab 200 Mg PO DAILY Active Ordered Medications See MAR Family History Unobtainable from patient due to his clinical condition Social History Unobtainable from patient due to his clinical condition. Per chart review: Denied alcohol, tobacco, or drugs. Physical Exam Vital Signs Vital Signs Date Time Temp Pulse Resp B/P (MAP) Pulse Ox O2 Delivery O2 Flow Rate FiO2 03/26/17 13:45 03/26/17 13:30 62 19 140/87 (104) 97 Nasal Cannula 2.00 03/26/17 12:30 64 19 134/82 (99) 97 Nasal Cannula 2.00 03/26/17 11:30 63 18 126/81 (96) 97 Nasal Cannula 2.00 03/26/17 10:30 61 18 108/61 (77) 98 Nasal Cannula 2.00 03/26/17 09:30 62 15 97/54 (68) 98 Non-Rebreather 7.00 03/26/17 08:30 20 96 Non-Rebreather 03/26/17 08:30 61 19 99/55 (70) 94 Non-Rebreather 15.00 03/26/17 07:38 97.3 98 18 128/73 (91) 98 2.00 03/26/17 07:38 96 18 128/73 (91) 96 Nasal Cannula 3.00 03/26/17 07:31 97.3 102 18 132/80 (97) 92 Physical Exam GENERAL: Middle-aged male, lying in bed, combative, in 4-point restraints HEENT: Normocephalic. Atraumatic. Pupils equal, round, reactive, conjugate. Mucous membranes are moist NECK: Trachea is midline. There is no JVD. CHEST: unlabored, equal chest rise. CARDIOVASCULAR: tachycardic rate, regular rhythm. afib by tele. ABDOMEN: Soft, nontender, nondistended. No guarding. MUSCULOSKELETAL: Pulses 2+. No peripheral edema. NEUROLOGICAL: RASS +3. combative. moves all extremities Laboratory Laboratory Tests Test 03/26/17 07:35 03/26/17 09:00 03/26/17 14:40 03/26/17 15:15 White Blood Count 12.1 Red Blood Count 4.73 Hemoglobin 14.8 Hematocrit 44.7 Mean Corpuscular Volume 94.4 Mean Corpuscular Hemoglobin 31.3 Mean Corpuscular Hemoglobin Concent 33.2 Red Cell Distribution Width 13.3 Platelet Count 243 Mean Platelet Volume 7.3 Neutrophils (%) (Auto) 48.3 Lymphocytes (%) (Auto) 39.4 Monocytes (%) (Auto) 7.8 Eosinophils (%) (Auto) 3.8 Basophils (%) (Auto) 0.7 Neutrophils # (Auto) 5.8 Lymphocytes # (Auto) 4.7 Monocytes # (Auto) 0.9 Eosinophils # (Auto) 0.5 Basophils # (Auto) 0.1 CBC Comment DIFF FINAL Differential Comment Prothrombin Time 11.4 Prothromb Time International Ratio 1.0 Urine Color YELLOW Urine Turbidity CLEAR Urine pH 7.0 Urine Specific Stevenson 1.018 Urine Protein NEG Urine Glucose (UA) NEG Urine Ketones NEG Urine Occult Blood NEG Urine Nitrite NEG Urine Bilirubin NEG Urine Urobilinogen LESS THAN 2.0 Urine Leukocyte Esterase NEG Urine RBC 2 Urine WBC 1 Microscopic Urinalysis Comment CATH-CULT NOT IND Blood Urea Nitrogen 13 Creatinine 1.48 Random Glucose 150 Total Protein 7.2 Albumin 3.4 Calcium Level 8.7 Alkaline Phosphatase 199 Aspartate Amino Transf (AST/SGOT) 19 Alanine Aminotransferase (ALT/SGPT) 31 Total Bilirubin 0.4 Sodium Level 143 Potassium Level 3.1 3.9 Chloride Level 108 Carbon Dioxide Level 14.9 Anion Gap 20 Estimat Glomerular Filtration Rate 47 Total Creatine Kinase 59 Troponin I LESS THAN 0.02 Thyroid Stimulating Hormone 3rd Gen 0.120 Phenytoin (Dilantin) Level 6.6 Ammonia 27 Nasal Screen MRSA (PCR) MRSA NOT DETECTED Magnesium Level 1.8 Result Diagram: 03/26/17 0735 03/26/17 1515 Caprini VTE Risk Assessment Caprini VTE Risk Assessment: Mod/High Risk (score >= 2) Caprini Risk Assessment Model Point Value = 1 Point Value = 2 Point Value = 3 Point Value = 5 Age 41-60 Minor surgery BMI > 25 kg/m2 Swollen legs Varicose veins or History of unexplained or recurrent spontaneous Oral contraceptives or hormone replacement Sepsis (< 1 month) Serious lung disease, including pneumonia (< 1 month) Abnormal pulmonary function Acute myocardial infarction Congestive heart failure (< 1 month) History of inflammatory bowel disease Medical patient at bed rest Age 61-74 Arthroscopic surgery Major open surgery (> 45 min) Laparoscopic surgery (> 45 min) Malignancy Confined to bed (> 72 hours) Immobilizing plaster cast Central venous access Age >= 75 History of VTE Family history of VTE Factor V Leiden Prothrombin [id number] Lupus anticoagulant Anticardiolipin antibodies Elevated serum homocysteine Heparin-induced thrombocytopenia Other congenital or acquired thrombophilia Stroke (< 1 month) Elective arthroplasty Hip, pelvis, or leg fracture Acute spinal cord injury (< 1 month) Prophylaxis Regimen Total Risk Factor Score Risk Level Prophylaxis Regimen 0-1 Low Early ambulation 2 Moderate Order ONE of the following: *Sequential Compression Device (SCD) *Heparin 5000 units SQ BID 3-4 Higher Order ONE of the following medications: *Heparin 5000 units SQ TID *Enoxaparin/Lovenox 40 mg SQ daily (WT < 150 kg, CrCl > 30 mL/min) *Enoxaparin/Lovenox 30 mg SQ daily (WT < 150 kg, CrCl > 10-29 mL/min) *Enoxaparin/Lovenox 30 mg SQ BID (WT < 150 kg, CrCl > 30 mL/min) AND/OR *Sequential Compression Device (SCD) 5 or more Highest Order ONE of the following medications: *Heparin 5000 units SQ TID (Preferred with Epidurals) *Enoxaparin/Lovenox 40 mg SQ daily (WT < 150 kg, CrCl > 30 mL/min) *Enoxaparin/Lovenox 30 mg SQ daily (WT < 150 kg, CrCl > 10-29 mL/min) *Enoxaparin/Lovenox 30 mg SQ BID (WT < 150 kg, CrCl > 30 mL/min) AND *Sequential Compression Device (SCD) Assessment and Plan Assessment and Plan Assessment: 66yM with medication noncompliance presents with subtherapeutic phenytoin levels and seizures. Now complicated by acute life-threatening agitated delirium. Acute agitated delirium -- prn ativan -- continue restraints -- patient became hypotensive with precedex, so we will avoid -- haldol 5mg iv q4h prn -- frequent neuro checks Seizures -- subtherapeutic dilantin level -- restart home phenytoin -- neuro consult Schizophrenia -- restart home meds -- consult psych Admit to ICU NPO while agitated Code Status Full Code Mac Escobar MD Mar 26, 2017 19:48
[2017-03-26] MEDS: MIRTAZAPINE 15 MG TAB PO SCH (20:32)
[2017-03-26] MEDS: APIXABAN 2.5 MG TABLET PO SCH (20:32)
[2017-03-26] MEDS: DOCUSATE SODIUM 50 MG/SENNA 8.6 MG TAB PO SCH (20:33)
[2017-03-26] MEDS ORDERED: QUEtiapine FUMARATE 100 MG TAB PO SCH (21:00)
[2017-03-26] MEDS ORDERED: FOSPHENYTOIN SODIUM 100 MG PE/2 ML VIAL IV SCH (21:00)
[2017-03-26] MEDS ORDERED: PHENYTOIN SODIUM 100 MG CAP PO SCH (21:00)
[2017-03-26] MEDS: ZIPRASIDONE MESYLATE 20 MG VIAL IM PRN (21:07)
[2017-03-26] MEDS: HALOPERIDOL LACTATE 5 MG/ML AMP IV PRN ×2 (21:07→22:03)
[2017-03-26] MEDS: LORazepam 2 MG/ML VIAL IV PUSH PRN (22:38)
[2017-03-27] VITALS (14 sets, daily range): BP systolic 135; BP diastolic 73; PULSE 53–78; RESP 24; TEMP 98.2; O2SAT 95–98
[2017-03-27] MEDS: HALOPERIDOL LACTATE 5 MG/ML AMP IV PRN (02:04)
[2017-03-27] MEDS: CHLORHEXIDINE GLUCONATE 2 % 1 PACK (2 CLOTHS) TOP SCH (04:00)
[2017-03-27] MEDS: LORazepam 2 MG/ML VIAL IV PUSH PRN ×4 (05:07→17:28)
--- NOTE | 2017-03-27 05:31 | HHI.CCPN ---
Subjective Remarks/Hospital Course Hospital Course: This is a 66yM with history of schizophrenia, afib, and seizure disorders who presented to the ED from his SNF after he had medication noncompliance x 2 days and then presented with seizures. Patient was given serial ativan doses. he was protecting his airway, but he was somnolent. he is admitted to ICU for close monitoring. unfortunately, no information can be obtained from the patient. I evaluated him on admission to the ICU. On admission to the ICU, he was not somnolent but aggressive and combative. Subjective: 03/27: remains combative. required haldol, ativan and geodon prn overnight to control agitation. this morning resting more comfortably, but RASS +1 on awakening. still requiring restraints. Objective Vital Signs Date Time Temp Pulse Resp B/P (MAP) Pulse Ox O2 Delivery O2 Flow Rate FiO2 03/27/17 04:00 63 03/26/17 13:45 03/26/17 13:30 19 97 Nasal Cannula 2.00 03/26/17 07:38 97.3 Result Diagram: 03/26/17 0735 03/26/17 1515 Objective Remarks GENERAL: Middle-aged male, lying in bed, in 4-point restraints, resting on my evaluation HEENT: Normocephalic. Atraumatic. Pupils equal, round, reactive, conjugate. Mucous membranes are moist NECK: Trachea is midline. There is no JVD. CHEST: unlabored, equal chest rise. CARDIOVASCULAR: normal rate, regular rhythm. ABDOMEN: Soft, nontender, nondistended. No guarding. MUSCULOSKELETAL: Pulses 2+. No peripheral edema. NEUROLOGICAL: RASS -1, but +1 on arousing. still agitated, CAM+. moves all extremities A/P Assessment and Plan Assessment: 66yM with medication noncompliance presents with subtherapeutic phenytoin levels and seizures. Now complicated by acute life-threatening agitated delirium. Acute agitated delirium -- continue ativan, haldol, geodon -- continue restraints -- patient became hypotensive with precedex, so we will use judiciously or avoid if possible. -- haldol 5mg iv q4h prn -- frequent neuro checks Seizures -- subtherapeutic Dilantin level -- restart home phenytoin -- neuro consult -- cerebyx load -- repeat Dilantin level today. Schizophrenia -- continue home meds -- consult psych Remain in ICU given his severe agitation. NPO while agitated for risk of oversedation. Mac Escobar MD Mar 27, 2017 05:31
[2017-03-27 05:54] LABS: BICARBONATE 21.6 MEQ/L (21.0-32.0); POTASSIUM 3.6 MEQ/L (3.5-5.1)
[2017-03-27] MEDS ORDERED: APIXABAN 5 MG TABLET PO SCH (09:00)
--- NOTE | 2017-03-27 09:10 | PD.PSY.CON ---
Provisional Diagnosis Admission Date Mar 26, 2017 at 10:21 [place]. Vascular dementia with behavioral disturbances f 01.51 History of Present Illness Service Psychiatry Consult Requested By Attending Lizandro Reason for Consult Assessment Primary Care Physician Unknown HPI Patient is a 66-year-old white male known to us from prior contacts caring a diagnosis of dementia with behavioral disturbances. Appears his been admitted with this episode noncompliance with medications there is SNF leading to multiple seizures. Asked to see patient due to behavioral problems in the intensive care unit. Patient's chart reviewed EMR reviewed. Discussed this with patient's nurse. It appears she has been quite agitated showing resistance to medication needing 4-point restraints at this time. It appears he has been prescribed Remeron 15 mg at at bedtime, Seroquel 100 mg twice a day. Along with multiple other medications. Here in the hospital she is also been ordered Geodon when necessary and Haldol when necessary. Patient seen by me with nurse. He is awake to alert diffusely confused to place time and situation though does answer to his name. He is agitated irritable wanting to leave to go home with his and children. Unable to give any other significant history. Though he says he is in [facility] they grew up around [facility]. In any event at the present time feel patient would better be served better behavioral control with scheduled doses of Haldol. The patient is accepting liquids by mouth without difficulty. I recommend continuation of the Remeron at bedtime, consolidation of the Seroquel to 20 mg at bedtime, and add Haldol elixir 5 mg by mouth 3 times a day. Would suggest judicious use of benzodiazepines. At this time patient is not a candidate for transfer to the psychiatric unit. Thanks for the consult psychiatric service will follow-up on a when necessary basis Review of Systems ROS Limitations: Clinical Condition, Altered Mental Status, Other (severely demented) Past Family Social History Coded Allergies: strawberry (Unverified Allergy, Unknown, 03/26/17) PT DENIES Past Medical History Please see med surge assessments long history dementia Reported Medications Mirtazapine (Mirtazapine) 15 Mg Tab, 15 MG PO HS for Depression Control, #30 TAB 0 Refills 03/26/17 Gabapentin (Gabapentin) 400 Mg Cap, 400 CAP PO TID, #30 CAP 0 Refills 03/26/17 Quetiapine (Quetiapine) 100 Mg Tab, 100 MG PO BID, #60 TAB 0 Refills 03/26/17 Thiamine (Vitamin B-1) 100 Mg Tab, 100 MG PO DAILY for Nutritional Supplement, TAB 0 Refills 03/26/17 Multivitamin with Minerals (Rocco Multivitamin with Mineral) 1 Each Tablet, 1 TAB PO DAILY 03/26/17 Folic Acid (Folic Acid) 1 Mg Tablet, 1 MG PO DAILY 03/26/17 Apixaban (Eliquis) 5 Mg Tab, 5 MG PO DAILY for Blood Clot Prevention, #60 TAB 0 Refills 03/26/17 Amlodipine (Amlodipine) 10 Mg Tab, 10 MG PO DAILY for Blood Pressure Management , #30 TAB 0 Refills 03/26/17 Acetaminophen (Tylenol) 325 Mg Tab, 325 MG PO Q4H Y for PAIN SCALE 1 TO 10, TAB 0 Refills 01/05/17 Phenytoin Extended (Dilantin) 100 Mg Cap, 200 MG PO BID for Control Seizures, # 180 CAP 0 Refills 01/05/17 Amiodarone (Amiodarone) 200 Mg Tab, 200 MG PO DAILY for Regulate Heart Beat, # 30 TAB 0 Refills 01/05/17 Discontinued Reported Medications Olanzapine (Zyprexa) 5 Mg Tab, 5 MG PO HS, #30 TAB 0 Refills 01/05/17 Nifedipine ER 24 HR (Procardia XL) 60 Mg Tab, 60 MG PO DAILY, #30 TAB 0 Refills 01/05/17 Dabigatran (Pradaxa) 150 Mg Cap, 150 MG PO BID for Blood Clot Prevention, #60 CAP 0 Refills 01/05/17 Olanzapine (Olanzapine) 20 Mg Tab, 20 MG PO HS, #30 TAB 0 Refills 01/05/17 Magnesium Hydroxide Liq (Milk of Magnesia Liq) 400 Mg/5 Ml Susp, 30 ML PO DAILY Y for INDIGESTION OR UPSET STOMACH, #1 BOTTLE 0 Refills 01/05/17 Escitalopram (Lexapro) 10 Mg Tab, 10 MG PO DAILY, #30 TAB 0 Refills 01/05/17 Lamotrigine (Lamictal) 200 Mg Tab, 200 MG PO BID for Control Seizures, #60 TAB 0 Refills 01/05/17 Ibuprofen (Ibuprofen) 400 Mg Tab, 400 MG PO Q6H Y for PAIN SCALE 1 TO 2, TAB 0 Refills 01/05/17 Clonazepam (Clonazepam) 1 Mg Tab, 1 MG PO TID, #90 TAB 0 Refills 01/05/17 Current Medications Medications (Trade) Dose Ordered Sig/Eduardo Route Start Time Stop Time Status Last Admin (NS Flush) 2 ml UNSCH PRN IV FLUSH 03/26/17 07:45 (Mag-Ox) 800 mg UNSCH PRN PO 03/26/17 10:15 Magnesium Sulfate 4 gm/Sodium Chloride 100 ml @ 50 mls/hr UNSCH PRN IV 03/26/17 10:15 Magnesium Sulfate 2 gm/Sodium Chloride 100 ml @ 50 mls/hr UNSCH PRN IV 03/26/17 10:15 Potassium Chloride 100 ml @ 50 mls/hr Q2H PRN IV 03/26/17 10:15 Potassium Chloride 100 ml @ 50 mls/hr Q2H PRN IV 03/26/17 10:15 Potassium Chloride 100 ml @ 50 mls/hr Q2H PRN IV 03/26/17 10:15 Potassium Chloride 100 ml @ 25 mls/hr UNSCH PRN IV 03/26/17 10:15 (K-Phos) 2,000 mg Q4H PRN PO 03/26/17 10:15 (K-Phos) 2,000 mg UNSCH PRN PO/TUBE 03/26/17 10:15 Potassium Phosphate 30 mmol/ Sodium Chloride 260 ml @ 42 mls/hr UNSCH PRN IV 03/26/17 10:15 Sodium Phosphate 30 mmol/Sodium Chloride 250 ml @ 42 mls/hr UNSCH PRN IV 03/26/17 10:15 Sodium Chloride 1,000 ml @ 84 mls/hr [id number] IV 03/26/17 10:09 03/26/17 22:39 (Zofran Inj) 4 mg Q6H PRN IV 03/26/17 11:00 (Duoneb Neb) 1 ampule Q2HR NEB PRN INH 03/26/17 10:15 Miscellaneous Information 1 Q361D XX 03/26/17 10:15 (Chlorhexidine 2% Cloth) 3 pack Taper DAILY@04 TOP 03/27/17 04:00 03/23/18 03:59 03/27/17 04:00 (Chlorhexidine 2% Cloth) 3 pack UNSCH PRN TOP 03/26/17 10:15 (Iesha-Colace) 1 tab BID PO 03/26/17 21:00 03/26/17 20:33 (Cordarone) 200 mg DAILY PO 03/27/17 09:00 (Norvasc) 10 mg DAILY PO 03/27/17 09:00 (Folate) 1 mg DAILY PO 03/27/17 09:00 (Neurontin) 400 mg TID PO 03/26/17 13:00 03/26/17 13:35 (Remeron) 15 mg HS PO 03/26/17 21:00 03/26/17 20:32 (SEROquel) 100 mg BID PO 03/26/17 21:00 03/26/17 20:32 (Vitamin B1) 100 mg DAILY PO 03/27/17 09:00 (Theragran M Tab) 1 tab DAILY PO 03/27/17 09:00 (Eliquis) 2.5 mg BID PO 03/26/17 21:00 03/26/17 20:32 (Haldol Inj) 5 mg Q1H PRN IV 03/26/17 21:00 03/27/17 02:04 (Geodon Inj) 10 mg Q12H PRN IM 03/26/17 21:00 03/26/17 21:07 (Ativan Inj) 2 mg Q1H PRN IV PUSH 03/26/17 21:00 03/27/17 07:24 Family History Alone at this time due to patient's cognitive impairment Social History Patient lives in [facility] Patient's Strengths (min. 2) Patient able access healthcare patient responding to medication Physical Exam Please see med surge assessments Vital Signs Vital Signs Date Time Temp Pulse Resp B/P (MAP) Pulse Ox O2 Delivery O2 Flow Rate FiO2 03/27/17 08:00 96 Nasal Cannula 2.00 03/27/17 06:00 53 03/26/17 13:45 03/26/17 13:30 19 03/26/17 07:38 97.3 I/O 03/27/17 03/27/17 03/28/17 08:00 16:00 00:00 Intake Total 1116 ml Output Total 2100 ml Balance -984 ml Lab Results Test 03/26/17 09:00 03/26/17 14:40 03/26/17 15:15 03/27/17 04:52 Ammonia 27 MCMOL/L Nasal Screen MRSA (PCR) MRSA NOT DETECTED Potassium Level 3.9 MEQ/L 3.6 MEQ/L Magnesium Level 1.8 MG/DL Blood Urea Nitrogen 8 MG/DL Creatinine 0.71 MG/DL Random Glucose 95 MG/DL Calcium Level 8.8 MG/DL Sodium Level 144 MEQ/L Chloride Level 113 MEQ/L Carbon Dioxide Level 21.6 MEQ/L Anion Gap 9 MEQ/L Estimat Glomerular Filtration Rate 111 ML/MIN Phenytoin (Dilantin) Level 33.2 MCG/ML Mental Status Examination Drowsy to alert irritable angry labile white male appears stated age vaguely oriented only to person Appearance Clean neat for situation Speech: Stuttering, Incoherent Orientation: Person (vaguely) Memory: Impaired (describe) (secondary to significant cognitive impairment) Thought Process: Other (markedly disorganized) Thought Content: Bizarre thinking Language Very poor Fund of Knowledge Very poor Hallucination Type: None Attention and Concentration: Other (very poor) Suicidal Ideation: No Previous Suicide Attempts: No Homicidal Ideation: No Previous Homicide Attempts: No Insight: Poor Judgment: Poor Affect: Other (increased range and intensity) Mood: Angry, Irritable Motor Activity: Abnormal gait-specify (patient and restraints in bed unable to assess) Assessment & Plan Problem List: (1) Vascular dementia ICD Codes: F01.50 - Vascular dementia without behavioral disturbance Status: Acute Assessment & Plan Estimated LOS: days patient has dementia behavioral disturbances need to be addressed. The help with treatment. Would suggest discontinuing the when necessary Haldol and order Haldol 5 mg elixir 3 times a day, consolidate Seroquel to 20 mg at at bedtime, okay to continue the mirtazapine. Will follow on a when necessary basis Discharge Planning At this time patient does not meet criteria for an acute inpatient psychiatric hospitalization Problem Qualifiers (1) Vascular dementia: Qualified Codes: F01.51 - Vascular dementia with behavioral disturbance Jose Cohen MD Mar 27, 2017 09:09
[2017-03-27] MEDS: HALOPERIDOL LACTATE ORAL CONC 10 MG/5 ML CUP PO SCH ×3 (10:00→17:28)
[2017-03-27] MEDS: MULTIVITAMINS/MINERALS THERAPEUTIC TAB PO SCH (11:42)
[2017-03-27] MEDS: FOLIC ACID 1 MG TAB PO SCH (11:42)
[2017-03-27] MEDS: THIAMINE HCL 100 MG TAB PO SCH (11:42)
[2017-03-27] MEDS: APIXABAN 2.5 MG TABLET PO SCH ×2 (11:42→22:50)
[2017-03-27] MEDS: GABAPENTIN 400 MG CAP PO SCH ×3 (11:42→17:28)
[2017-03-27] MEDS: DOCUSATE SODIUM 50 MG/SENNA 8.6 MG TAB PO SCH ×2 (11:43→22:51)
[2017-03-27] MEDS: SODIUM CHLOR 0.9% 1000 ML INJ 1,000 ML IV SCH ×2 (11:44→22:51)
[2017-03-27] MEDS: AMIODARONE 200 MG TAB PO SCH (11:48)
[2017-03-27 12:41] LABS: HEMATOCRIT 45.2 % (39.0-51.0); MEAN CORPUSCULAR HEMOGLOBIN 31.2 PG (27.0-34.0); MEAN CORPUSCULAR HGB CONC 33.2 % (32.0-36.0); PLATELET COUNT 122 TH/MM3 (150-450); RED BLOOD COUNT 4.81 MIL/MM3 (4.50-5.90); RED CELL DISTRIBUTION WIDTH 13.3 % (11.6-17.2); WHITE BLOOD COUNT 10.9 TH/MM3 (4.0-11.0)
[2017-03-27 12:42] LABS: REVIEW FLAG FINAL
--- NOTE | 2017-03-27 20:02 | EKG ---
Date Performed: 03/26/2017 Time Performed: 12:30:08 PTAGE: 66 years EKG: Sinus rhythm WITH FIRST DEGREE AV BLOCK NONSPECIFIC T-WAVE ABNORMALITY ABNORMAL ECG PREVIOUS TRACING : 03/26/2017 07.45 Compared to the previous tracing ST changes no longer prese nt DOCTOR: Joe Frye Interpretating Date/Time 03/27/2017 20:02:17
--- NOTE | 2017-03-27 20:12 | MG ---
cc: ANYI CROONA MD Lab No: Date: 03/27/17 Age: 66 Sex: M Race: DATE OF [address] Miner MEDICAL HISTORY Stroke, dementia, seizures, hypertension, a-fib, hyperlipidemia, DVT, GERD, depression, anxiety, schizophrenia, multiple falls. MEDICATIONS 1. Remeron. 2. Seroquel. 3. Eliquis. 4. Cerebyx. 5. Haldol. 6. Geodon. DESCRIPTION At the beginning of the EEG recording the patient was asleep with background slowing and K complexes. During the recording when the patient was awake, there was a background activity of 8-9 Hz alpha of low voltage, bilateral symmetrical. Hyperventilation was not done. Photic stimulation did not elicit a driving response. There were intermittent spikes and sharp waves bilateral mainly in the left parietal region. No electrographic seizures were noted. INTERPRETATION This is an abnormal awake and sleep EEG. There was noted intermittent epileptogenic sharp waves and spike waves throughout recording mainly at the left hemisphere. No electrographic seizures were noted. Clinical correlation is recommended. Anyi Corona MD RGO/EO /3:54 PM /8:02 PM MTDNeeraj
--- NOTE | 2017-03-27 20:20 | EKG ---
Date Performed: 03/26/2017 Time Performed: 07:45:34 PTAGE: 66 years EKG: Sinus rhythm WITH FIRST DEGREE AV BLOCK ST DEVIATION AND MODERATE T-WAVE ABNORMALITY ABNORMAL ECG PREVIOUS TRACING : 11/27/2014 15.19 Compared to the previous tracing ST-T changes are present DOCTOR: Joe Frey Interpretating Date/Time 03/27/2017 20:19:57
[2017-03-27] MEDS: QUEtiapine FUMARATE 100 MG TAB PO SCH (22:50)
[2017-03-27] MEDS: MIRTAZAPINE 15 MG TAB PO SCH (22:50)
[2017-03-28] VITALS (14 sets, daily range): BP systolic 112–139; BP diastolic 66–84; PULSE 64–77; RESP 13–30; TEMP 97.3–98.3; O2SAT 94–100
[2017-03-28] MEDS: CHLORHEXIDINE GLUCONATE 2 % 1 PACK (2 CLOTHS) TOP SCH (04:00)
[2017-03-28 05:21] LABS: HEMATOCRIT 40.8 % (39.0-51.0); MEAN CELL VOLUME 91.5 FL (80.0-100.0); MEAN CORPUSCULAR HEMOGLOBIN 31.3 PG (27.0-34.0); MEAN CORPUSCULAR HGB CONC 34.2 % (32.0-36.0); PLATELET COUNT 154 TH/MM3 (150-450); RED BLOOD COUNT 4.45 MIL/MM3 (4.50-5.90); RED CELL DISTRIBUTION WIDTH 13.1 % (11.6-17.2); REVIEW FLAG FINAL; WHITE BLOOD COUNT 7.9 TH/MM3 (4.0-11.0)
[2017-03-28 05:43] LABS: BICARBONATE 25.2 MEQ/L (21.0-32.0); POTASSIUM 3.4 MEQ/L (3.5-5.1)
--- NOTE | 2017-03-28 09:12 | HHI.PR ---
Review/Management Diagnosis/Plan: (1) Seizure disorder ICD Codes: G40.909 - Seizure disorder Status: Acute Plan: not compliant with medication/ renal failure also, on seroquel which could lower sz threshold on haldol 5mg tid per psych elixer recs dilantin on hold as level >20 follow levels ok for 5th floor with tele bianca tower fall precautions p.t. (2) Vascular dementia ICD Codes: F01.50 - Vascular dementia without behavioral disturbance Status: Acute (3) Atrial fibrillation ICD Codes: I48.91 - Atrial fibrillation Status: Acute (4) History of traumatic brain injury ICD Codes: Z87.820 - History of traumatic brain injury Status: Acute (5) Schizophrenia ICD Codes: F20.9 - Schizophrenia Status: Acute Plan: seen by psych Subjective Subjective Comments No acute events reported No headache No chest pain Active Medications Current Medications Medications (Trade) Dose Ordered Sig/Eduardo Route Start Time Stop Time Status Last Admin (NS Flush) 2 ml UNSCH PRN IV FLUSH 03/26/17 07:45 (Mag-Ox) 800 mg UNSCH PRN PO 03/26/17 10:15 Magnesium Sulfate 4 gm/Sodium Chloride 100 ml @ 50 mls/hr UNSCH PRN IV 03/26/17 10:15 Magnesium Sulfate 2 gm/Sodium Chloride 100 ml @ 50 mls/hr UNSCH PRN IV 03/26/17 10:15 Potassium Chloride 100 ml @ 50 mls/hr Q2H PRN IV 03/26/17 10:15 Potassium Chloride 100 ml @ 50 mls/hr Q2H PRN IV 03/26/17 10:15 Potassium Chloride 100 ml @ 50 mls/hr Q2H PRN IV 03/26/17 10:15 Potassium Chloride 100 ml @ 25 mls/hr UNSCH PRN IV 03/26/17 10:15 (K-Phos) 2,000 mg Q4H PRN PO 03/26/17 10:15 (K-Phos) 2,000 mg UNSCH PRN PO/TUBE 03/26/17 10:15 Potassium Phosphate 30 mmol/ Sodium Chloride 260 ml @ 42 mls/hr UNSCH PRN IV 03/26/17 10:15 Sodium Phosphate 30 mmol/Sodium Chloride 250 ml @ 42 mls/hr UNSCH PRN IV 03/26/17 10:15 Sodium Chloride 1,000 ml @ 84 mls/hr [id number] IV 03/26/17 10:09 03/27/17 22:51 (Zofran Inj) 4 mg Q6H PRN IV 03/26/17 11:00 (Duoneb Neb) 1 ampule Q2HR NEB PRN INH 03/26/17 10:15 Miscellaneous Information 1 Q361D XX 03/26/17 10:15 (Chlorhexidine 2% Cloth) 3 pack Taper DAILY@04 TOP 03/27/17 04:00 03/23/18 03:59 03/28/17 04:00 (Chlorhexidine 2% Cloth) 3 pack UNSCH PRN TOP 03/26/17 10:15 (Iesha-Colace) 1 tab BID PO 03/26/17 21:00 03/27/17 22:51 (Cordarone) 200 mg DAILY PO 03/27/17 09:00 03/27/17 11:48 (Norvasc) 10 mg DAILY PO 03/27/17 09:00 03/27/17 11:42 (Folate) 1 mg DAILY PO 03/27/17 09:00 03/27/17 11:42 (Neurontin) 400 mg TID PO 03/26/17 13:00 03/27/17 17:28 (Remeron) 15 mg HS PO 03/26/17 21:00 03/27/17 22:50 (Vitamin B1) 100 mg DAILY PO 03/27/17 09:00 03/27/17 11:42 (Theragran M Tab) 1 tab DAILY PO 03/27/17 09:00 03/27/17 11:42 (Eliquis) 2.5 mg BID PO 03/26/17 21:00 03/27/17 22:50 (Geodon Inj) 10 mg Q12H PRN IM 03/26/17 21:00 03/26/17 21:07 (Ativan Inj) 2 mg Q1H PRN IV PUSH 03/26/17 21:00 03/27/17 17:28 (SEROquel) 200 mg HS PO 03/27/17 21:00 03/27/17 22:50 (Haldol Lactate Liq) 5 mg TID PO 03/27/17 10:00 03/27/17 17:28 Allergies Allergies Coded Allergies strawberry (Unverified Allergy, Unknown, 03/26/17) Review of Systems All other ROS: ROS reviewed as documented in chart Exam I&O / VS Vital Signs Date Time Temp Pulse Resp B/P (MAP) Pulse Ox O2 Delivery O2 Flow Rate FiO2 03/28/17 06:00 67 03/28/17 04:00 68 03/28/17 04:00 97.9 68 14 112/68 (83) 96 03/28/17 02:00 68 03/28/17 00:00 98.1 71 13 128/67 (87) 95 03/28/17 00:00 71 03/27/17 22:00 74 03/27/17 20:42 95 21 03/27/17 20:00 78 03/27/17 20:00 98.2 78 24 135/73 (93) 98 03/27/17 18:00 74 03/27/17 17:00 70 03/27/17 16:00 71 03/27/17 14:00 68 03/27/17 12:00 68 03/27/17 10:00 65 Exam Comments resting, easily arousable, states 1-2 words and falls back asleep, ou 3mm sluggish, not following, neck supple, boles to gravity, planterflexor, no clonus Objective Micro and Labs Laboratory Tests Test 03/27/17 11:45 03/28/17 04:56 White Blood Count 10.9 7.9 Red Blood Count 4.81 4.45 Hemoglobin 15.0 14.0 Hematocrit 45.2 40.8 Mean Corpuscular Volume 94.0 91.5 Mean Corpuscular Hemoglobin 31.2 31.3 Mean Corpuscular Hemoglobin Concent 33.2 34.2 Red Cell Distribution Width 13.3 13.1 Platelet Count 122 154 Mean Platelet Volume 8.7 6.9 Blood Urea Nitrogen 4 Creatinine 0.75 Random Glucose 78 Calcium Level 8.5 Sodium Level 144 Potassium Level 3.4 Chloride Level 111 Carbon Dioxide Level 25.2 Anion Gap 8 Estimat Glomerular Filtration Rate 104 Phenytoin (Dilantin) Level 24.2 Problem Qualifiers (1) Vascular dementia: Qualified Codes: F01.51 - Vascular dementia with behavioral disturbance Cedrick Miner MD Mar 28, 2017 09:12
[2017-03-28] MEDS: SODIUM CHLOR 0.9% 1000 ML INJ 1,000 ML IV SCH ×2 (09:49→23:30)
[2017-03-28] MEDS: HALOPERIDOL LACTATE ORAL CONC 10 MG/5 ML CUP PO SCH ×3 (10:32→17:26)
[2017-03-28] MEDS: POTASSIUM CHLOR 20 MEQ PREMIX 100 ML IV PRN ×2 (10:32→13:42)
[2017-03-28] MEDS: MULTIVITAMINS/MINERALS THERAPEUTIC TAB PO SCH (10:33)
[2017-03-28] MEDS: AMIODARONE 200 MG TAB PO SCH (10:33)
[2017-03-28] MEDS: DOCUSATE SODIUM 50 MG/SENNA 8.6 MG TAB PO SCH ×2 (10:33→21:19)
[2017-03-28] MEDS: GABAPENTIN 400 MG CAP PO SCH ×3 (10:33→17:26)
[2017-03-28] MEDS: FOLIC ACID 1 MG TAB PO SCH (10:33)
[2017-03-28] MEDS: LORazepam 2 MG/ML VIAL IV PUSH PRN ×4 (10:33→21:21)
[2017-03-28] MEDS: THIAMINE HCL 100 MG TAB PO SCH (10:33)
[2017-03-28] MEDS: APIXABAN 2.5 MG TABLET PO SCH ×2 (10:34→21:20)
--- NOTE | 2017-03-28 10:45 | RADRPT ---
EXAM DATE/TIME: 03/28/2017 09:20 [place] COMPARISON: MRI BRAIN W/O CONTRAST, November 28, 2014, 11:32. MRA CAROTIDS W CONTRAST, November 28, 2014, 11:32. INDICATIONS : CVA. MEDICAL HISTORY : Seizures. Dementia. Cerebrovascular disease. TBI. SURGICAL HISTORY : Craniotomy. ENCOUNTER: Subsequent ACUITY: 2 day PAIN SCORE: Nonresponsive. LOCATION: head. Please note a normal MRA of the brain does not entirely exclude the possibility of a small aneurysm, nor the possibility of distal intracranial vessel disease. TECHNIQUE: 3D time of flight MRA was performed. Source images, multiplanar STS MIP, and 3D volume MIP reconstru ctions were reviewed. FINDINGS: The examination is very limited. The distal internal carotid arteries are patent. The basilar is marcano nt. The proximal anterior and middle cerebral circulation appears patent but again evaluation is jeff rely limited due to motion artifact. The posterior cerebral circulation is patent. CONCLUSION: 1. Very limited examination. The intracranial circulation is very difficult to visualize distal to th e M1 segments. Centrally it appears patent. Osorio Zhou MD on March 28, 2017 at 10:42 Board Certified Radiologist. This report was verified electronically.
--- NOTE | 2017-03-28 14:36 | HHI.PYPN ---
Subjective Remarks Patient seen in his room patient sleeping at this time. Discussed patient with his nurse. It appears his behaviors have softened somewhat, though he was up much of the night admitted a when necessary of Ativan. However staff does notice his somewhat calmer. I would recommend continuing psychotropics as scheduled at the present time. As mentioned yesterday patient is not at this time candidate for HP see. We'll continue to follow on the unit Review of Systems ROS Limitations: Clinical Condition, Altered Mental Status Objective Alert: No (somewhat sedated and napping at the present time) [place]: Person (napping) Mood: Other (napping) Affect: Other (napping) Memory Intact: Comment (napping) Hallucinations: Other (napping) Delusions: No (napping) Delusion Type: Other (napping) Suicidal: Ideation (napping) Homicidal: Ideation (napping) Insight/Judgment Very poor, napping Labs Test 03/28/17 04:56 White Blood Count 7.9 TH/MM3 Red Blood Count 4.45 MIL/MM3 Hemoglobin 14.0 GM/DL Hematocrit 40.8 % Mean Corpuscular Volume 91.5 FL Mean Corpuscular Hemoglobin 31.3 PG Mean Corpuscular Hemoglobin Concent 34.2 % Red Cell Distribution Width 13.1 % Platelet Count 154 TH/MM3 Mean Platelet Volume 6.9 FL Blood Urea Nitrogen 4 MG/DL Creatinine 0.75 MG/DL Random Glucose 78 MG/DL Calcium Level 8.5 MG/DL Sodium Level 144 MEQ/L Potassium Level 3.4 MEQ/L Chloride Level 111 MEQ/L Carbon Dioxide Level 25.2 MEQ/L Anion Gap 8 MEQ/L Estimat Glomerular Filtration Rate 104 ML/MIN Phenytoin (Dilantin) Level 24.2 MCG/ML Vitals/IOs Vital Signs Date Time Temp Pulse Resp B/P (MAP) Pulse Ox O2 Delivery O2 Flow Rate FiO2 03/28/17 11:15 96 21 03/28/17 06:00 67 03/28/17 04:00 97.9 14 112/68 (83) 03/27/17 08:00 Nasal Cannula 2.00 Intake and Output 03/28/17 03/28/17 03/29/17 08:00 16:00 00:00 Intake Total 1000 ml 100 ml Output Total 550 ml Balance 450 ml 100 ml Assessment & Plan Problem List: (1) Vascular dementia ICD Codes: F01.50 - Vascular dementia without behavioral disturbance Status: Acute Assessment & Plan Estimated LOS: days patient behavior appears to be softening somewhat recommend continuing Haldol no change at the present time Justification for Cont. Inpt. Patient continues to monitor by medical service Discharge Planning To be determined Problem Qualifiers (1) Vascular dementia: Qualified Codes: F01.51 - Vascular dementia with behavioral disturbance Jose Cohen MD Mar 28, 2017 14:36
--- NOTE | 2017-03-28 14:51 | HHI.CCPN ---
Subjective Remarks/Hospital Course Hospital Course: This is a 66yM with history of schizophrenia, afib, and seizure disorders who presented to the ED from his SNF after he had medication noncompliance x 2 days and then presented with seizures. Patient was given serial ativan doses. he was protecting his airway, but he was somnolent. he is admitted to ICU for close monitoring. unfortunately, no information can be obtained from the patient. I evaluated him on admission to the ICU. On admission to the ICU, he was not somnolent but aggressive and combative. Subjective: 03/27: remains combative. required haldol, ativan and geodon prn overnight to control agitation. this morning resting more comfortably, but RASS +1 on awakening. still requiring restraints. 03/28: much less combative. now somnolent, but arousable. still CAM+ and delirious. RASS -1 on my evaluation. still requiring restraints. Objective Vital Signs Date Time Temp Pulse Resp B/P (MAP) Pulse Ox O2 Delivery O2 Flow Rate FiO2 03/28/17 11:15 96 21 03/28/17 06:00 67 03/28/17 04:00 97.9 14 112/68 (83) 03/27/17 08:00 Nasal Cannula 2.00 Intake and Output 03/28/17 03/28/17 03/29/17 08:00 16:00 00:00 Intake Total 1000 ml 100 ml Output Total 550 ml Balance 450 ml 100 ml Result Diagram: 03/28/17 0456 03/28/17 0456 Objective Remarks GENERAL: Middle-aged male, lying in bed, in 4-point restraints, resting on my evaluation HEENT: Normocephalic. Atraumatic. Pupils equal, round, reactive, conjugate. Mucous membranes are moist NECK: Trachea is midline. There is no JVD. CHEST: unlabored, equal chest rise. CARDIOVASCULAR: normal rate, regular rhythm. ABDOMEN: Soft, nontender, nondistended. No guarding. MUSCULOSKELETAL: Pulses 2+. No peripheral edema. NEUROLOGICAL: RASS -1, but +1 on arousing. still agitated, CAM+. moves all extremities A/P Assessment and Plan Assessment: 66yM with medication noncompliance presents with subtherapeutic phenytoin levels and seizures. agitation is better, but still not ready for inpatient psych. could be a good med/psych candidate. agree with scheduled haldol po and continue prn meds. also agree with minimizing benzos if possible. Acute agitated delirium -- continue haldol, shauna -- continue ativan, but agree with psych recommendation to minimize this. -- continue restraints -- patient became hypotensive with precedex, so we will use judiciously or avoid if possible. -- haldol 5mg iv q4h prn -- frequent neuro checks Seizures -- subtherapeutic Dilantin level on presentation, now supratherapeutic. continue to trend daily levels. -- neuro consult, will allow them to guide antiepileptic therapy. Schizophrenia -- continue home meds -- psych following could advance diet if patient less agitated today. will consult hospitalist service as patient no longer meets critical care criteria. Mac Escobar MD Mar 28, 2017 14:51
[2017-03-28] MEDS: QUEtiapine FUMARATE 100 MG TAB PO SCH (21:20)
[2017-03-28] MEDS: MIRTAZAPINE 15 MG TAB PO SCH (21:26)
[2017-03-29] VITALS (10 sets, daily range): BP systolic 132–163; BP diastolic 78–93; PULSE 65–100; RESP 11–35; TEMP 97.8–99.2; O2SAT 97–100
[2017-03-29] MEDS: LORazepam 2 MG/ML VIAL IV PUSH PRN ×5 (03:29→20:47)
[2017-03-29] MEDS: CHLORHEXIDINE GLUCONATE 2 % 1 PACK (2 CLOTHS) TOP SCH (03:29)
[2017-03-29 05:51] LABS: HEMATOCRIT 40.8 % (39.0-51.0); MEAN CELL VOLUME 90.8 FL (80.0-100.0); MEAN CORPUSCULAR HEMOGLOBIN 31.4 PG (27.0-34.0); MEAN CORPUSCULAR HGB CONC 34.6 % (32.0-36.0); PLATELET COUNT 156 TH/MM3 (150-450); RED BLOOD COUNT 4.49 MIL/MM3 (4.50-5.90); RED CELL DISTRIBUTION WIDTH 13.1 % (11.6-17.2); REVIEW FLAG FINAL; WHITE BLOOD COUNT 6.7 TH/MM3 (4.0-11.0)
[2017-03-29 06:17] LABS: BICARBONATE 20.8 MEQ/L (21.0-32.0); POTASSIUM 3.6 MEQ/L (3.5-5.1)
--- NOTE | 2017-03-29 06:56 | HHI.PR ---
Review/Management Diagnosis/Plan: (1) Seizure disorder ICD Codes: G40.909 - Seizure disorder Status: Acute Plan: not compliant with medication/ renal failure also, on seroquel which could lower sz threshold on haldol 5mg tid per psych elixer recs dilantin 21. restart dilantin 150mg bid once levels closer to 15 consider reducing haldol to 2.5 ok for 5th floor with tele bianca tower d/c planning fall precautions (2) Vascular dementia ICD Codes: F01.50 - Vascular dementia without behavioral disturbance Status: Acute (3) Atrial fibrillation ICD Codes: I48.91 - Atrial fibrillation Status: Acute (4) History of traumatic brain injury ICD Codes: Z87.820 - History of traumatic brain injury Status: Acute (5) Schizophrenia ICD Codes: F20.9 - Schizophrenia Status: Acute Plan: seen by psych Subjective Subjective Comments No acute events reported No headache No chest pain No dyspnea Active Medications Current Medications Medications (Trade) Dose Ordered Sig/Eduardo Route Start Time Stop Time Status Last Admin (NS Flush) 2 ml UNSCH PRN IV FLUSH 03/26/17 07:45 (Mag-Ox) 800 mg UNSCH PRN PO 03/26/17 10:15 Magnesium Sulfate 4 gm/Sodium Chloride 100 ml @ 50 mls/hr UNSCH PRN IV 03/26/17 10:15 Magnesium Sulfate 2 gm/Sodium Chloride 100 ml @ 50 mls/hr UNSCH PRN IV 03/26/17 10:15 Potassium Chloride 100 ml @ 50 mls/hr Q2H PRN IV 03/26/17 10:15 Potassium Chloride 100 ml @ 50 mls/hr Q2H PRN IV 03/26/17 10:15 03/28/17 13:42 Potassium Chloride 100 ml @ 50 mls/hr Q2H PRN IV 03/26/17 10:15 Potassium Chloride 100 ml @ 25 mls/hr UNSCH PRN IV 03/26/17 10:15 (K-Phos) 2,000 mg Q4H PRN PO 03/26/17 10:15 (K-Phos) 2,000 mg UNSCH PRN PO/TUBE 03/26/17 10:15 Potassium Phosphate 30 mmol/ Sodium Chloride 260 ml @ 42 mls/hr UNSCH PRN IV 03/26/17 10:15 Sodium Phosphate 30 mmol/Sodium Chloride 250 ml @ 42 mls/hr UNSCH PRN IV 03/26/17 10:15 Sodium Chloride 1,000 ml @ 84 mls/hr [id number] IV 03/26/17 10:09 03/28/17 23:30 (Zofran Inj) 4 mg Q6H PRN IV 03/26/17 11:00 (Duoneb Neb) 1 ampule Q2HR NEB PRN INH 03/26/17 10:15 Miscellaneous Information 1 Q361D XX 03/26/17 10:15 (Chlorhexidine 2% Cloth) 3 pack Taper DAILY@04 TOP 03/27/17 04:00 03/23/18 03:59 03/29/17 03:29 (Chlorhexidine 2% Cloth) 3 pack UNSCH PRN TOP 03/26/17 10:15 (Iesha-Colace) 1 tab BID PO 03/26/17 21:00 03/28/17 21:19 (Cordarone) 200 mg DAILY PO 03/27/17 09:00 03/28/17 10:33 (Norvasc) 10 mg DAILY PO 03/27/17 09:00 03/28/17 10:33 (Folate) 1 mg DAILY PO 03/27/17 09:00 03/28/17 10:33 (Neurontin) 400 mg TID PO 03/26/17 13:00 03/28/17 17:26 (Remeron) 15 mg HS PO 03/26/17 21:00 03/28/17 21:26 (Vitamin B1) 100 mg DAILY PO 03/27/17 09:00 03/28/17 10:33 (Theragran M Tab) 1 tab DAILY PO 03/27/17 09:00 03/28/17 10:33 (Eliquis) 2.5 mg BID PO 03/26/17 21:00 03/28/17 21:20 (Geodon Inj) 10 mg Q12H PRN IM 03/26/17 21:00 03/26/17 21:07 (Ativan Inj) 2 mg Q1H PRN IV PUSH 03/26/17 21:00 03/29/17 03:29 (SEROquel) 200 mg HS PO 03/27/17 21:00 03/28/17 21:20 (Haldol Lactate Liq) 5 mg TID PO 03/27/17 10:00 03/28/17 17:26 Allergies Allergies Coded Allergies strawberry (Unverified Allergy, Unknown, 03/26/17) Review of Systems All other ROS: ROS reviewed as documented in chart Exam I&O / VS Vital Signs Date Time Temp Pulse Resp B/P (MAP) Pulse Ox O2 Delivery O2 Flow Rate FiO2 03/29/17 06:00 67 03/29/17 04:00 80 03/29/17 04:00 98.1 65 15 148/89 (108) 98 03/29/17 02:00 68 03/29/17 00:00 78 03/29/17 00:00 98.2 78 12 163/90 (114) 97 03/28/17 22:00 72 03/28/17 20:13 98 03/28/17 20:00 97.3 77 24 120/73 (89) 96 03/28/17 20:00 77 03/28/17 18:00 75 03/28/17 16:00 98.0 77 30 125/66 (85) 100 03/28/17 16:00 77 03/28/17 14:00 72 03/28/17 12:00 65 03/28/17 12:00 98.1 65 13 139/84 (102) 97 03/28/17 11:15 96 21 03/28/17 10:00 68 03/28/17 08:00 64 03/28/17 08:00 98.3 64 16 122/70 (87) 94 Exam Comments alert, ox to self, states 1-2 words and falls back asleep, ou 3mm sluggish, not following, neck supple, boles to gravity except diminshed in left ue, spastic, planterflexor, no clonus Objective Micro and Labs Laboratory Tests Test 03/29/17 05:28 White Blood Count 6.7 Red Blood Count 4.49 Hemoglobin 14.1 Hematocrit 40.8 Mean Corpuscular Volume 90.8 Mean Corpuscular Hemoglobin 31.4 Mean Corpuscular Hemoglobin Concent 34.6 Red Cell Distribution Width 13.1 Platelet Count 156 Mean Platelet Volume 7.1 Blood Urea Nitrogen 4 Creatinine 0.50 Random Glucose 75 Calcium Level 8.6 Sodium Level 144 Potassium Level 3.6 Chloride Level 112 Carbon Dioxide Level 20.8 Anion Gap 11 Estimat Glomerular Filtration Rate 166 Phenytoin (Dilantin) Level 21.7 Problem Qualifiers (1) Vascular dementia: Qualified Codes: F01.51 - Vascular dementia with behavioral disturbance Cedrick Miner MD Mar 29, 2017 06:55
[2017-03-29] MEDS: DOCUSATE SODIUM 50 MG/SENNA 8.6 MG TAB PO SCH ×2 (07:28→20:46)
[2017-03-29] MEDS: AMIODARONE 200 MG TAB PO SCH (07:28)
[2017-03-29] MEDS: HALOPERIDOL LACTATE ORAL CONC 10 MG/5 ML CUP PO SCH ×3 (07:28→18:13)
[2017-03-29] MEDS: GABAPENTIN 400 MG CAP PO SCH ×3 (07:29→18:13)
[2017-03-29] MEDS: APIXABAN 2.5 MG TABLET PO SCH ×2 (07:29→20:46)
[2017-03-29] MEDS: FOLIC ACID 1 MG TAB PO SCH (07:29)
[2017-03-29] MEDS: SODIUM CHLOR 0.9% 1000 ML INJ 1,000 ML IV SCH ×2 (07:29→21:34)
[2017-03-29] MEDS: THIAMINE HCL 100 MG TAB PO SCH (07:29)
[2017-03-29] MEDS: MULTIVITAMINS/MINERALS THERAPEUTIC TAB PO SCH (07:29)
--- NOTE | 2017-03-29 10:04 | HHI.PR ---
Subjective Remarks Follow up agitation, seizure disorder. Patient is confused. Denies pain. Objective Vitals Vital Signs Date Time Temp Pulse Resp B/P (MAP) Pulse Ox O2 Delivery O2 Flow Rate FiO2 03/29/17 08:39 97 21 03/29/17 08:00 69 03/29/17 08:00 97.8 69 11 163/89 (113) 97 03/29/17 06:00 67 03/29/17 04:00 80 03/29/17 04:00 98.1 65 15 148/89 (108) 98 03/29/17 02:00 68 03/29/17 00:00 78 03/29/17 00:00 98.2 78 12 163/90 (114) 97 03/28/17 22:00 72 03/28/17 20:13 98 03/28/17 20:00 97.3 77 24 120/73 (89) 96 03/28/17 20:00 77 03/28/17 18:00 75 03/28/17 16:00 98.0 77 30 125/66 (85) 100 03/28/17 16:00 77 03/28/17 14:00 72 03/28/17 12:00 65 03/28/17 12:00 98.1 65 13 139/84 (102) 97 03/28/17 11:15 96 21 03/28/17 10:00 68 I/O 03/28/17 03/28/17 03/28/17 03/29/17 03/29/17 03/29/17 07:00 15:00 23:00 07:00 15:00 23:00 Intake Total 1000 ml 100 ml 140 ml 1000 ml 700 ml Output Total 550 ml 1250 ml 1300 ml Balance 450 ml 100 ml -1110 ml -300 ml 700 ml Intake Oral 40 ml IV Total 1000 ml 100 ml 100 ml 1000 ml 700 ml Output Urine Total 550 ml 1250 ml 1300 ml # Bowel Movements 0 Result Diagram: 03/29/17 0528 03/29/17 05 Imaging Last Impressions Head Magnetic Resonance Angiography 03/28/17 0000 Signed Impressions: Service Date/Time: March 09:20 - CONCLUSION: 1. Very limited examination. The intracranial circulation is very difficult to visualize distal to the M1 segments. Centrally it appears patent. Osorio Zhou MD Head CT 03/26/1733 Signed Impressions: Service Date/Time: Sunday, March 26, 2017 08:02 - CONCLUSION: 1. Prominent bilateral old ischemic changes. 2. No acute intracranial abnormality or significant interval change. Oskar Alex MD Chest X-Ray 03/26/1733 Signed Impressions: Service Date/Time: Sunday, March 26, 2017 08:25 - CONCLUSION: No acute cardiopulmonary disease. Oskar Alex MD Objective Remarks General: No acute distress. In soft wrist/ankle restraints. Heart: Regular rate and rhythm. No murmur. Lungs: Clear to auscultation bilaterally. No wheezes, rales, or rhonchi. Breathing is nonlabored. Abdomen: Soft, nontender, nondistended. Extremities: No lower extremity edema. Psych: Alert, confused. Procedures None Urinary Catheter: No Vascular Central Line Catheter: No A/P Problem List: (1) History of traumatic brain injury ICD Code: Z87.820 - History of traumatic brain injury Status: Chronic (2) Schizophrenia ICD Code: F20.9 - Schizophrenia Status: Chronic (3) Seizure disorder ICD Code: G40.909 - Seizure disorder Status: Chronic (4) Hypertension ICD Code: I10 - Hypertension Status: Chronic (5) Hypothyroid ICD Code: E03.9 - Hypothyroid Status: Chronic (6) Atrial fibrillation ICD Code: I48.91 - Atrial fibrillation Status: Chronic (7) Altered mental status ICD Code: R41.82 - Altered mental status Status: Acute Assessment and Plan 1. Acute agitated delirium: Minimize ativan per psychiatry. Appreciate neurology recommendations. Continue haldol, geodon. 2. Seizure disorder: Dilantin level was subtherapeutic on arrival. Appreciate neurology recommendations. 3. Schizophrenia: Appreciate psychiatry recommendations. Continue home medications. 4. Hypertension: Continue amlodipine. 5. Atrial fibrillation: Continue amiodarone, Eliquis. 6. DVT prophylaxis: Eliquis. Discharge Planning Cleared by neurology for transfer to [facility]. Critical care had been working on possible transfer to medical/psychiatric unit. Problem Qualifiers (1) Altered mental status: Qualified Codes: R40.1 - Angel Anne MD Mar 29, 2017 10:04
[2017-03-29] MEDS: MIRTAZAPINE 15 MG TAB PO SCH (20:46)
[2017-03-29] MEDS: QUEtiapine FUMARATE 100 MG TAB PO SCH (20:46)
[2017-03-30] VITALS: BP 121/65; PULSE 63; RESP 18; TEMP 98.3; O2SAT 80
[2017-03-30 04:00] VITALS: BP 113/63; PULSE 69; RESP 20; TEMP 98.2; O2SAT 94
[2017-03-30] MEDS: CHLORHEXIDINE GLUCONATE 2 % 1 PACK (2 CLOTHS) TOP SCH (04:00)
[2017-03-30] MEDS: LORazepam 2 MG/ML VIAL IV PUSH PRN (05:48)
[2017-03-30 07:15] LABS: HEMATOCRIT 40.8 % (39.0-51.0); MEAN CELL VOLUME 91.4 FL (80.0-100.0); MEAN CORPUSCULAR HEMOGLOBIN 30.6 PG (27.0-34.0); MEAN CORPUSCULAR HGB CONC 33.5 % (32.0-36.0); PLATELET COUNT 186 TH/MM3 (150-450); RED BLOOD COUNT 4.46 MIL/MM3 (4.50-5.90); RED CELL DISTRIBUTION WIDTH 13.4 % (11.6-17.2); REVIEW FLAG FINAL; WHITE BLOOD COUNT 7.3 TH/MM3 (4.0-11.0)
[2017-03-30 07:23] LABS: POTASSIUM 3.5 MEQ/L (3.5-5.1)
[2017-03-30 08:00] VITALS: BP 131/82; PULSE 69; RESP 16; TEMP 98.6; O2SAT 96
[2017-03-30] MEDS: AMIODARONE 200 MG TAB PO SCH (08:45)
[2017-03-30] MEDS: THIAMINE HCL 100 MG TAB PO SCH (08:45)
[2017-03-30] MEDS: MULTIVITAMINS/MINERALS THERAPEUTIC TAB PO SCH (08:45)
[2017-03-30] MEDS: FOLIC ACID 1 MG TAB PO SCH (08:45)
[2017-03-30] MEDS: APIXABAN 2.5 MG TABLET PO SCH ×2 (08:46→20:30)
[2017-03-30] MEDS: SODIUM CHLOR 0.9% 1000 ML INJ 1,000 ML IV SCH ×2 (08:46→20:31)
[2017-03-30] MEDS: DOCUSATE SODIUM 50 MG/SENNA 8.6 MG TAB PO SCH ×2 (08:46→20:29)
[2017-03-30] MEDS: HALOPERIDOL LACTATE ORAL CONC 10 MG/5 ML CUP PO SCH ×3 (08:46→17:27)
[2017-03-30] MEDS: GABAPENTIN 400 MG CAP PO SCH ×3 (08:46→17:27)
[2017-03-30 12:00] VITALS: BP 130/85; PULSE 73; RESP 16; TEMP 98.6; O2SAT 98
--- NOTE | 2017-03-30 13:52 | HHI.PR ---
Subjective Remarks Follow up agitation, seizure disorder. Patient is in 4-point restraints. Denies pain. States that he is "tired and cold". Per sitter, patient has been intermittently agitated. Objective Vitals Vital Signs Date Time Temp Pulse Resp B/P (MAP) Pulse Ox O2 Delivery O2 Flow Rate FiO2 03/30/17 12:00 98.6 73 16 130/85 (100) 98 03/30/17 08:00 98.6 69 16 131/82 (98) 96 03/30/17 04:00 98.2 69 20 113/63 (80) 94 03/30/17 00:00 98.3 63 18 121/65 (83) 80 03/29/17 20:00 99.2 77 18 132/78 (96) 97 03/29/17 14:00 72 I/O 03/29/17 03/29/17 03/29/17 03/30/17 03/30/17 03/30/17 07:00 15:00 23:00 07:00 15:00 23:00 Intake Total 1000 ml 700 ml Output Total 1300 ml Balance -300 ml 700 ml IV Total 1000 ml 700 ml Output Urine Total 1300 ml Result Diagram: 03/30/17 0625 03/30/17 0625 Imaging Last Impressions Head Magnetic Resonance Angiography 03/28/17 0000 Signed Impressions: Service Date/Time: March 09:20 - CONCLUSION: 1. Very limited examination. The intracranial circulation is very difficult to visualize distal to the M1 segments. Centrally it appears patent. Osorio Zhou MD Head CT 03/26/1733 Signed Impressions: Service Date/Time: Sunday, March 26, 2017 08:02 - CONCLUSION: 1. Prominent bilateral old ischemic changes. 2. No acute intracranial abnormality or significant interval change. Oskar Alex MD Chest X-Ray 03/26/17732 Signed Impressions: Service Date/Time: Sunday, March 26, 2017 08:25 - CONCLUSION: No acute cardiopulmonary disease. Oskar Alex MD Objective Remarks General: No acute distress. In soft wrist/ankle restraints. Heart: Regular rate and rhythm. No murmur. Lungs: Clear to auscultation bilaterally. No wheezes, rales, or rhonchi. Breathing is nonlabored. Abdomen: Soft, nontender, nondistended. Extremities: No lower extremity edema. Psych: Sleeping, but awakens and answers questions. Procedures None Urinary Catheter: No Vascular Central Line Catheter: No A/P Problem List: (1) History of traumatic brain injury ICD Code: Z87.820 - History of traumatic brain injury Status: Chronic (2) Schizophrenia ICD Code: F20.9 - Schizophrenia Status: Chronic (3) Seizure disorder ICD Code: G40.909 - Seizure disorder Status: Chronic (4) Hypertension ICD Code: I10 - Hypertension Status: Chronic (5) Hypothyroid ICD Code: E03.9 - Hypothyroid Status: Chronic (6) Atrial fibrillation ICD Code: I48.91 - Atrial fibrillation Status: Chronic (7) Altered mental status ICD Code: R41.82 - Altered mental status Status: Acute Assessment and Plan 1. Acute agitation: Minimize ativan per psychiatry. Appreciate neurology recommendations. Continue haldol, geodon. 2. Seizure disorder: Dilantin level was subtherapeutic on arrival, then was supratherapeutic. Now in therapeutic range. Appreciate neurology recommendations. Restart Dilantin at 150mg BID. 3. Schizophrenia: Appreciate psychiatry recommendations. Continue home medications. 4. Hypertension: Continue amlodipine. 5. Atrial fibrillation: Continue amiodarone, Eliquis. 6. DVT prophylaxis: Eliquis. Discharge Planning Reconsult psychiatry for possible transfer to medical/psychiatric unit. Problem Qualifiers (1) Altered mental status: Qualified Codes: R40.1 - Fayor Angel Yang MD Mar 30, 2017 13:52
[2017-03-30] MEDS: ZIPRASIDONE MESYLATE 20 MG VIAL IM PRN (15:27)
[2017-03-30 16:00] VITALS: BP 129/77; PULSE 71; RESP 16; TEMP 98.4; O2SAT 97
[2017-03-30 20:00] VITALS: BP 119/71; PULSE 64; RESP 18; TEMP 98.2; O2SAT 94
[2017-03-30] MEDS: QUEtiapine FUMARATE 100 MG TAB PO SCH (20:29)
[2017-03-30] MEDS: PHENYTOIN 50 MG CHEWABLE TAB PO SCH (20:30)
[2017-03-30] MEDS: MIRTAZAPINE 15 MG TAB PO SCH (20:30)
[2017-03-30] MEDS: PHENYTOIN SODIUM 100 MG CAP PO SCH (20:30)
[2017-03-31] VITALS: BP 115/75; PULSE 60; RESP 18; TEMP 97.5; O2SAT 94
[2017-03-31 04:00] VITALS: BP 132/70; PULSE 67; RESP 18; TEMP 98.1; O2SAT 96
[2017-03-31] MEDS: CHLORHEXIDINE GLUCONATE 2 % 1 PACK (2 CLOTHS) TOP SCH (04:00)
[2017-03-31 06:52] LABS: HEMATOCRIT 39.7 % (39.0-51.0); MEAN CELL VOLUME 90.8 FL (80.0-100.0); MEAN CORPUSCULAR HEMOGLOBIN 31.8 PG (27.0-34.0); PLATELET COUNT 177 TH/MM3 (150-450); RED BLOOD COUNT 4.37 MIL/MM3 (4.50-5.90); RED CELL DISTRIBUTION WIDTH 13.1 % (11.6-17.2); REVIEW FLAG FINAL; WHITE BLOOD COUNT 7.8 TH/MM3 (4.0-11.0)
[2017-03-31 07:25] LABS: BICARBONATE 22.7 MEQ/L (21.0-32.0); POTASSIUM 3.4 MEQ/L (3.5-5.1)
[2017-03-31 08:00] VITALS: BP 132/71; PULSE 63; RESP 19; TEMP 98.9; O2SAT 94
[2017-03-31] MEDS: SODIUM CHLOR 0.9% 1000 ML INJ 1,000 ML IV SCH ×2 (09:09→21:14)
[2017-03-31] MEDS: GABAPENTIN 400 MG CAP PO SCH ×3 (09:10→16:56)
[2017-03-31] MEDS: PHENYTOIN 50 MG CHEWABLE TAB PO SCH ×2 (09:10→21:52)
[2017-03-31] MEDS: PHENYTOIN SODIUM 100 MG CAP PO SCH ×2 (09:10→21:54)
[2017-03-31] MEDS: DOCUSATE SODIUM 50 MG/SENNA 8.6 MG TAB PO SCH ×2 (09:11→21:58)
[2017-03-31] MEDS: THIAMINE HCL 100 MG TAB PO SCH (09:11)
[2017-03-31] MEDS: APIXABAN 2.5 MG TABLET PO SCH ×2 (09:12→21:59)
[2017-03-31] MEDS: MULTIVITAMINS/MINERALS THERAPEUTIC TAB PO SCH (09:12)
[2017-03-31] MEDS: FOLIC ACID 1 MG TAB PO SCH (09:12)
[2017-03-31] MEDS: HALOPERIDOL LACTATE ORAL CONC 10 MG/5 ML CUP PO SCH ×3 (09:13→16:56)
[2017-03-31] MEDS: AMIODARONE 200 MG TAB PO SCH (09:13)
[2017-03-31 12:00] VITALS: BP 119/66; PULSE 63; RESP 19; TEMP 98.1; O2SAT 94
--- NOTE | 2017-03-31 15:25 | HHI.PR ---
Subjective Remarks Follow up agitation, seizure disorder. Patient more alert today, but remains confused. No events reported by nursing. Less agitated today. Objective Vitals Vital Signs Date Time Temp Pulse Resp B/P (MAP) Pulse Ox O2 Delivery O2 Flow Rate FiO2 03/31/17 12:00 98.1 63 19 119/66 (83) 94 03/31/17 08:00 98.9 63 19 132/71 (91) 94 03/31/17 04:00 98.1 67 18 132/70 (90) 96 03/31/17 00:00 97.5 60 18 115/75 (88) 94 03/30/17 20:00 98.2 64 18 119/71 (87) 94 03/30/17 16:00 98.4 71 16 129/77 (94) 97 I/O 03/30/17 03/30/17 03/30/17 03/31/17 03/31/17 03/31/17 06:59 14:59 22:59 06:59 14:59 22:59 Intake Total 360 ml 1600 ml Output Total 500 ml 600 ml Balance -140 ml -600 ml 1600 ml Intake Oral 360 ml 600 ml IV Total 1000 ml Output Urine Total 500 ml 600 ml # Voids 2 # Bowel Movements 0 0 Result Diagram: 03/31/1715 03/31/1715 Imaging Last Impressions Head Magnetic Resonance Angiography 03/28/17 0000 Signed Impressions: Service Date/Time: March 09:20 - CONCLUSION: 1. Very limited examination. The intracranial circulation is very difficult to visualize distal to the M1 segments. Centrally it appears patent. Osorio Zhou MD Head CT 03/26/17732 Signed Impressions: Service Date/Time: Sunday, March 26, 2017 08:02 - CONCLUSION: 1. Prominent bilateral old ischemic changes. 2. No acute intracranial abnormality or significant interval change. Oskar Alex MD Chest X-Ray 03/26/17732 Signed Impressions: Service Date/Time: Sunday, March 26, 2017 08:25 - CONCLUSION: No acute cardiopulmonary disease. Oskar Alex MD Objective Remarks General: No acute distress. Heart: Regular rate and rhythm. No murmur. Lungs: Clear to auscultation bilaterally. No wheezes, rales, or rhonchi. Breathing is nonlabored. Abdomen: Soft, nontender, nondistended. Extremities: No lower extremity edema. Psych: Awake, alert. Confused. Not oriented to city, year, month. Procedures None Urinary Catheter: No Vascular Central Line Catheter: No A/P Problem List: (1) History of traumatic brain injury ICD Code: Z87.820 - History of traumatic brain injury Status: Chronic (2) Schizophrenia ICD Code: F20.9 - Schizophrenia Status: Chronic (3) Seizure disorder ICD Code: G40.909 - Seizure disorder Status: Chronic (4) Hypertension ICD Code: I10 - Hypertension Status: Chronic (5) Hypothyroid ICD Code: E03.9 - Hypothyroid Status: Chronic (6) Atrial fibrillation ICD Code: I48.91 - Atrial fibrillation Status: Chronic (7) Altered mental status ICD Code: R41.82 - Altered mental status Status: Acute Assessment and Plan 1. Acute agitation: Minimize ativan per psychiatry. Appreciate neurology recommendations. Continue haldol, geodon. 2. Seizure disorder: Dilantin level was subtherapeutic on arrival, then was supratherapeutic. Now in therapeutic range. Appreciate neurology recommendations. Continue Dilantin at 150mg BID. 3. Schizophrenia: Continue home medications. 4. Hypertension: Continue amlodipine. BP well controlled. 5. Atrial fibrillation: Continue amiodarone, Eliquis. 6. DVT prophylaxis: Eliquis. Discharge Planning Reconsult psychiatry for possible transfer to medical/psychiatric unit. Problem Qualifiers (1) Altered mental status: Qualified Codes: R40.1 - Stupor Angel Yang MD Mar 31, 2017 15:25
[2017-03-31 16:00] VITALS: BP 117/69; PULSE 67; RESP 19; TEMP 98.5; O2SAT 94
[2017-03-31] MEDS ORDERED: HALOPERIDOL LACTATE ORAL CONC 10 MG/5 ML CUP PO PRN (17:30)
[2017-03-31 20:00] VITALS: BP 110/55; PULSE 67; RESP 16; TEMP 99.1; O2SAT 94
[2017-03-31] MEDS: QUEtiapine FUMARATE 100 MG TAB PO SCH (21:58)
[2017-03-31] MEDS: MIRTAZAPINE 15 MG TAB PO SCH (21:59)
[2017-04-01] VITALS (7 sets, daily range): BP systolic 120–155; BP diastolic 62–73; PULSE 54–81; RESP 14–20; TEMP 97.8–98.6; O2SAT 93–100
[2017-04-01] MEDS: CHLORHEXIDINE GLUCONATE 2 % 1 PACK (2 CLOTHS) TOP SCH (02:19)
[2017-04-01] MEDS: SODIUM CHLOR 0.9% 1000 ML INJ 1,000 ML IV SCH ×3 (03:38→20:39)
[2017-04-01 07:29] LABS: HEMATOCRIT 39.8 % (39.0-51.0); MEAN CELL VOLUME 91.2 FL (80.0-100.0); MEAN CORPUSCULAR HEMOGLOBIN 31.5 PG (27.0-34.0); MEAN CORPUSCULAR HGB CONC 34.5 % (32.0-36.0); PLATELET COUNT 168 TH/MM3 (150-450); RED BLOOD COUNT 4.37 MIL/MM3 (4.50-5.90); RED CELL DISTRIBUTION WIDTH 13.4 % (11.6-17.2); REVIEW FLAG FINAL; WHITE BLOOD COUNT 6.4 TH/MM3 (4.0-11.0)
[2017-04-01 07:58] LABS: BICARBONATE 23.2 MEQ/L (21.0-32.0); POTASSIUM 3.3 MEQ/L (3.5-5.1)
--- NOTE | 2017-04-01 08:13 | HHI.PR ---
Review/Management Diagnosis/Plan: (1) Seizure disorder ICD Codes: G40.909 - Seizure disorder Status: Chronic Plan: not compliant with medication/ renal failure also, on seroquel which could lower sz threshold on haldol 5mg tid per psych elixer vascular dementia with vascular parkinsonism recs increase dilantin to 200mg bid non-complaint with medications. may need peg tube as he refuses meds at his facility. does not appear competent to me. d/c planning back to NH from neurology today dilantin levels can be checked q1-2 days and adjusted accordingly by NH md or faxed to our office fall precautions (2) Vascular dementia ICD Codes: F01.50 - Vascular dementia without behavioral disturbance Status: Acute (3) Atrial fibrillation ICD Codes: I48.91 - Atrial fibrillation Status: Chronic (4) History of traumatic brain injury ICD Codes: Z87.820 - History of traumatic brain injury Status: Chronic (5) Schizophrenia ICD Codes: F20.9 - Schizophrenia Status: Chronic Plan: seen by psych Subjective Subjective Comments No acute events reported No headache No chest pain No dyspnea Active Medications Current Medications Medications (Trade) Dose Ordered Sig/Eduardo Route Start Time Stop Time Status Last Admin (NS Flush) 2 ml UNSCH PRN IV FLUSH 03/26/17 07:45 Sodium Chloride 1,000 ml @ 84 mls/hr [id number] IV 03/26/17 10:09 04/01/17 03:38 (Zofran Inj) 4 mg Q6H PRN IV 03/26/17 11:00 (Duoneb Neb) 1 ampule Q2HR NEB PRN INH 03/26/17 10:15 Miscellaneous Information 1 Q361D XX 03/26/17 10:15 (Chlorhexidine 2% Cloth) Taper DAILY@04 TOP 03/27/17 04:00 03/23/18 03:59 03/29/17 03:29 (Chlorhexidine 2% Cloth) 3 pack UNSCH PRN TOP 03/26/17 10:15 (Iesha-Colace) 1 tab BID PO 03/26/17 21:00 03/31/17 21:58 (Cordarone) 200 mg DAILY PO 03/27/17 09:00 03/31/17 09:13 (Norvasc) 10 mg DAILY PO 03/27/17 09:00 03/31/17 09:12 (Folate) 1 mg DAILY PO 03/27/17 09:00 03/31/17 09:12 (Neurontin) 400 mg TID PO 03/26/17 13:00 03/31/17 16:56 (Remeron) 15 mg HS PO 03/26/17 21:00 03/31/17 21:59 (Vitamin B1) 100 mg DAILY PO 03/27/17 09:00 03/31/17 09:11 (Theragran M Tab) 1 tab DAILY PO 03/27/17 09:00 03/31/17 09:12 (Eliquis) 2.5 mg BID PO 03/26/17 21:00 03/31/17 21:59 (Geodon Inj) 10 mg Q12H PRN IM 03/26/17 21:00 03/30/17 15:27 (Ativan Inj) 2 mg Q1H PRN IV PUSH 03/26/17 21:00 03/30/17 05:48 (SEROquel) 200 mg HS PO 03/27/17 21:00 03/31/17 21:58 (Haldol Lactate Liq) 5 mg TID PO 03/27/17 10:00 03/31/17 16:56 (Dilantin) 100 mg Q12HR PO 03/30/17 21:00 03/31/17 21:54 (Dilantin Infatabs Chew) 50 mg Q12HR PO 03/30/17 21:00 03/31/17 21:52 (Haldol Lactate Liq) 10 mg TID PRN PO 03/31/17 17:30 Allergies Allergies Coded Allergies strawberry (Unverified Allergy, Unknown, 03/26/17) Review of Systems All other ROS: ROS reviewed as documented in chart Exam I&O / VS Vital Signs Date Time Temp Pulse Resp B/P (MAP) Pulse Ox O2 Delivery O2 Flow Rate FiO2 04/01/17 04:00 98.2 54 18 130/66 (87) 96 04/01/17 01:00 97.9 76 14 120/64 (82) 95 03/31/17 20:00 99.1 67 16 110/55 (73) 94 03/31/17 16:00 98.5 67 19 117/69 (85) 94 03/31/17 12:00 98.1 63 19 119/66 (83) 94 Exam Comments alert, ox to self and place, not to year, impaired short-term memory, ou 3mm sluggish, following, neck supple, boles to gravity lue spastic, planterflexor, no clonus Objective Micro and Labs Laboratory Tests Test 04/01/17 05:45 White Blood Count 6.4 Red Blood Count 4.37 Hemoglobin 13.8 Hematocrit 39.8 Mean Corpuscular Volume 91.2 Mean Corpuscular Hemoglobin 31.5 Mean Corpuscular Hemoglobin Concent 34.5 Red Cell Distribution Width 13.4 Platelet Count 168 Mean Platelet Volume 7.2 Blood Urea Nitrogen 12 Creatinine 0.72 Random Glucose 91 Calcium Level 8.5 Sodium Level 144 Potassium Level 3.3 Chloride Level 111 Carbon Dioxide Level 23.2 Anion Gap 10 Estimat Glomerular Filtration Rate 109 Phenytoin (Dilantin) Level 9.4 Problem Qualifiers (1) Vascular dementia: Qualified Codes: F01.51 - Vascular dementia with behavioral disturbance Cedrick Miner MD Apr 01, 2017 08:13
[2017-04-01] MEDS: DOCUSATE SODIUM 50 MG/SENNA 8.6 MG TAB PO SCH ×2 (09:30→20:36)
[2017-04-01] MEDS: GABAPENTIN 400 MG CAP PO SCH ×3 (09:30→18:08)
[2017-04-01] MEDS: FOLIC ACID 1 MG TAB PO SCH (09:30)
[2017-04-01] MEDS: AMIODARONE 200 MG TAB PO SCH (09:31)
[2017-04-01] MEDS: HALOPERIDOL LACTATE ORAL CONC 10 MG/5 ML CUP PO SCH ×3 (09:31→18:07)
[2017-04-01] MEDS: THIAMINE HCL 100 MG TAB PO SCH (09:31)
[2017-04-01] MEDS: APIXABAN 2.5 MG TABLET PO SCH ×2 (09:31→20:36)
[2017-04-01] MEDS: MULTIVITAMINS/MINERALS THERAPEUTIC TAB PO SCH (09:31)
[2017-04-01] MEDS ORDERED: POTASSIUM CHLORIDE 20 MEQ CONTROLLED RELEASE TAB PO ONE (11:15)
[2017-04-01] MEDS ORDERED: BISACODYL 10 MG SUPP RECTAL PRN (11:15)
--- NOTE | 2017-04-01 11:29 | HHI.PR ---
Subjective Remarks Follow up agitation. No events reported by nursing. Denies pain. Objective Vitals Vital Signs Date Time Temp Pulse Resp B/P (MAP) Pulse Ox O2 Delivery O2 Flow Rate FiO2 04/01/17 09:56 98 04/01/17 08:31 98.3 70 18 155/73 (100) 94 04/01/17 04:00 98.2 54 18 130/66 (87) 96 04/01/17 01:00 97.9 76 14 120/64 (82) 95 03/31/17 20:00 99.1 67 16 110/55 (73) 94 03/31/17 16:00 98.5 67 19 117/69 (85) 94 03/31/17 12:00 98.1 63 19 119/66 (83) 94 I/O 03/31/17 03/31/17 03/31/17 04/01/17 04/01/17 04/01/17 07:00 15:00 23:00 07:00 15:00 23:00 Intake Total 1600 ml 1220 ml Output Total 600 ml Balance -600 ml 1600 ml 1220 ml Intake Oral 600 ml 220 ml IV Total 1000 ml 1000 ml Output Urine Total 600 ml # Voids 2 1 # Bowel Movements 0 Result Diagram: 04/01/17 0545 04/01/17 0545 Imaging Last Impressions Head Magnetic Resonance Angiography 03/28/17 0000 Signed Impressions: Service Date/Time: March 09:20 - CONCLUSION: 1. Very limited examination. The intracranial circulation is very difficult to visualize distal to the M1 segments. Centrally it appears patent. Osorio Zhou MD Head CT 03/26/17732 Signed Impressions: Service Date/Time: Sunday, March 26, 2017 08:02 - CONCLUSION: 1. Prominent bilateral old ischemic changes. 2. No acute intracranial abnormality or significant interval change. Oskar Alex MD Chest X-Ray 03/26/17732 Signed Impressions: Service Date/Time: Sunday, March 26, 2017 08:25 - CONCLUSION: No acute cardiopulmonary disease. Oskar Alex MD Objective Remarks General: No acute distress. Heart: Regular rate and rhythm. No murmur. Lungs: Clear to auscultation bilaterally. No wheezes, rales, or rhonchi. Breathing is nonlabored. Abdomen: Soft, nontender, nondistended. Extremities: No lower extremity edema. Psych: Awake, alert. Confused. Not oriented to city, year, month. Procedures None Urinary Catheter: No Vascular Central Line Catheter: No A/P Problem List: (1) History of traumatic brain injury ICD Code: Z87.820 - History of traumatic brain injury Status: Chronic (2) Schizophrenia ICD Code: F20.9 - Schizophrenia Status: Chronic (3) Seizure disorder ICD Code: G40.909 - Seizure disorder Status: Chronic (4) Hypertension ICD Code: I10 - Hypertension Status: Chronic (5) Hypothyroid ICD Code: E03.9 - Hypothyroid Status: Chronic (6) Atrial fibrillation ICD Code: I48.91 - Atrial fibrillation Status: Chronic (7) Altered mental status ICD Code: R41.82 - Altered mental status Status: Acute Assessment and Plan 1. Acute agitation: Minimize ativan per psychiatry. Appreciate neurology recommendations. Continue haldol, geodon. 2. Seizure disorder: Dilantin level was subtherapeutic on arrival, then was supratherapeutic. Now in therapeutic range. Appreciate neurology recommendations. Increase Dilantin to 200mg BID. 3. Schizophrenia: Continue home medications. 4. Hypertension: Continue amlodipine. BP well controlled. 5. Atrial fibrillation: Continue amiodarone, Eliquis. 6. DVT prophylaxis: Eliquis. Discharge Planning Cleared by neurology for discharge to SNF. Reconsult psychiatry for possible transfer to medical/psychiatric unit vs clearance to discharge to SNF. Problem Qualifiers (1) Altered mental status: Qualified Codes: R40.1 - Stupor Angel Yang MD Apr 01, 2017 11:29
[2017-04-01] MEDS ORDERED: PHENYTOIN SODIUM 100 MG CAP PO SCH (11:30)
[2017-04-01] MEDS: MIRTAZAPINE 15 MG TAB PO SCH (20:36)
[2017-04-01] MEDS: QUEtiapine FUMARATE 100 MG TAB PO SCH (20:36)
[2017-04-02 00:52] VITALS: BP 104/56; PULSE 63; RESP 18; TEMP 98; O2SAT 97
[2017-04-02] MEDS: CHLORHEXIDINE GLUCONATE 2 % 1 PACK (2 CLOTHS) TOP SCH (04:00)
[2017-04-02 05:13] VITALS: BP 163/74; PULSE 70; RESP 16; TEMP 98.4; O2SAT 99
--- NOTE | 2017-04-02 08:11 | HHI.PR ---
Review/Management Diagnosis/Plan: (1) Seizure disorder ICD Codes: G40.909 - Seizure disorder Status: Chronic Plan: not compliant with medication/ renal failure also, on seroquel which could lower sz threshold on haldol 5mg tid per psych elixer vascular dementia with vascular parkinsonism recs calm x 2 days dil slightly low at 9.4 increase dilantin to 200mg bid non-complaint with medications. may need peg tube as he refuses meds at his facility. does not appear competent to me. d/c planning back to NH from neurology today; can f/u with us as needed dilantin levels can be checked q1-2 days and adjusted accordingly by NH md or faxed to our office fall precautions (2) Vascular dementia ICD Codes: F01.50 - Vascular dementia without behavioral disturbance Status: Acute (3) Atrial fibrillation ICD Codes: I48.91 - Atrial fibrillation Status: Chronic (4) History of traumatic brain injury ICD Codes: Z87.820 - History of traumatic brain injury Status: Chronic (5) Schizophrenia ICD Codes: F20.9 - Schizophrenia Status: Chronic Plan: seen by psych Subjective Subjective Comments No acute events reported No headache No chest pain No dyspnea Active Medications Current Medications Medications (Trade) Dose Ordered Sig/Eduardo Route Start Time Stop Time Status Last Admin (NS Flush) 2 ml UNSCH PRN IV FLUSH 03/26/17 07:45 Sodium Chloride 1,000 ml @ 84 mls/hr [id number] IV 03/26/17 10:09 04/01/17 20:39 (Zofran Inj) 4 mg Q6H PRN IV 03/26/17 11:00 (Duoneb Neb) 1 ampule Q2HR NEB PRN INH 03/26/17 10:15 Miscellaneous Information 1 [id number] XX 03/26/17 10:15 (Chlorhexidine 2% Cloth) Taper DAILY@04 TOP 03/27/17 04:00 03/23/18 03:59 03/29/17 03:29 (Chlorhexidine 2% Cloth) 3 pack UNSCH PRN TOP 03/26/17 10:15 (Iesha-Colace) 1 tab BID PO 03/26/17 21:00 04/01/17 20:36 (Cordarone) 200 mg DAILY PO 03/27/17 09:00 04/01/17 09:31 (Norvasc) 10 mg DAILY PO 03/27/17 09:00 04/01/17 09:30 (Folate) 1 mg DAILY PO 03/27/17 09:00 04/01/17 09:30 (Neurontin) 400 mg TID PO 03/26/17 13:00 04/01/17 18:08 (Remeron) 15 mg HS PO 03/26/17 21:00 04/01/17 20:36 (Vitamin B1) 100 mg DAILY PO 03/27/17 09:00 04/01/17 09:31 (Theragran M Tab) 1 tab DAILY PO 03/27/17 09:00 04/01/17 09:31 (Eliquis) 2.5 mg BID PO 03/26/17 21:00 04/01/17 20:36 (Geodon Inj) 10 mg Q12H PRN IM 03/26/17 21:00 03/30/17 15:27 (Ativan Inj) 2 mg Q1H PRN IV PUSH 03/26/17 21:00 03/30/17 05:48 (SEROquel) 200 mg HS PO 03/27/17 21:00 04/01/17 20:36 (Haldol Lactate Liq) 5 mg TID PO 03/27/17 10:00 04/01/17 18:07 (Haldol Lactate Liq) 10 mg TID PRN PO 03/31/17 17:30 (Dilantin) 200 mg DAILY PO 04/01/17 11:30 04/01/17 12:10 (Dulcolax Supp) 10 mg DAILY PRN RECTAL 04/01/17 11:15 04/01/17 18:46 Allergies Allergies Coded Allergies strawberry (Unverified Allergy, Unknown, 03/26/17) Review of Systems All other ROS: ROS reviewed as documented in chart Exam I&O / VS Vital Signs Date Time Temp Pulse Resp B/P (MAP) Pulse Ox O2 Delivery O2 Flow Rate FiO2 04/02/17 05:13 98.4 70 16 163/74 (103) 99 04/02/17 00:52 98.0 63 18 104/56 (72) 97 04/01/17 20:35 98.6 65 16 137/70 (92) 93 04/01/17 16:17 97.8 81 20 127/62 (83) 100 04/01/17 13:07 98.2 60 20 136/72 (93) 04/01/17 09:56 98 04/01/17 08:31 98.3 70 18 155/73 (100) 94 Exam Comments alert, ox to self, mumbled speech, impaired short-term memory, ou 3mm sluggish, following, neck supple, boles to gravity lue spastic, planterflexor, no clonus Problem Qualifiers (1) Vascular dementia: Qualified Codes: F01.51 - Vascular dementia with behavioral disturbance Cedrick Miner MD Apr 02, 2017 08:11
--- NOTE | 2017-04-02 08:44 | HHI.PYPN ---
Subjective Remarks Patient seen in his room with nurse Mike, chart review, patient compliant with her psychotropic medications. Patient alert calm pleasant with me with fair eye contact. He is diffusely confused to place time and situation. Ronna does have some spotty memory of his accident remembering falling from a ladder. He denies suicidality homicidality voices or visions. She has states she has been no significant behavioral problems. This time patient does not meet criteria for inpatient psychiatric hospitalization at [facility]. I would defer to neurology for placement recommendations perhaps returning to his halfway or rehabilitation facility. We'll recommend continuation of his Seroquel and his Haldol no change at the present time. The may be consideration of some gradual weaning of the medication once he is further stabilized. They can be done through a halfway or rehabilitation facility. Thanks for consult I will sign off of the present time please reconsult us as necessary Review of Systems Except as stated in HPI: all other systems reviewed are Neg Objective Alert: No (somewhat sedated and napping at the present time) [place]: Person Mood: Calm Affect: Other (good range and intensity) Memory Intact: Comment (poor) Hallucinations: Other (denies) Delusions: No (none noted) Delusion Type: Other (denies) Suicidal: Ideation (denies) Homicidal: Ideation (denies) Insight/Judgment Poor Vitals/IOs Vital Signs Date Time Temp Pulse Resp B/P (MAP) Pulse Ox O2 Delivery O2 Flow Rate FiO2 04/02/17 05:13 98.4 70 16 163/74 (103) 99 03/29/17 08:39 21 Intake and Output 04/02/17 04/02/17 04/03/17 08:00 16:00 00:00 Intake Total 725 ml Balance 725 ml Assessment & Plan Problem List: (1) Vascular dementia ICD Codes: F01.50 - Vascular dementia without behavioral disturbance Status: Acute Assessment & Plan Estimated LOS: days patient's behaviors appear to be coming, his compliant with medication that was pleasant with me with fair eye contact. He continues diffusely confused. This time patient does not meet criteria for inpatient psychiatric hospitalization. I would agree with neurology. It is okay by psych for transfer to an appropriate facility perhaps halfway or rehabilitation facility. I would recommend continuation of his Seroquel and Haldol no change at the present time. Thanks for consult I will sign off at the present time Justification for Cont. Inpt. Discharge plans to be made by treatment team Discharge Planning To be determined Problem Qualifiers (1) Vascular dementia: Qualified Codes: F01.51 - Vascular dementia with behavioral disturbance Jose Cohen MD Apr 02, 2017 08:43
[2017-04-02 08:49] VITALS: BP 137/75; PULSE 70; RESP 18; TEMP 98.2; O2SAT 95
[2017-04-02] MEDS: SODIUM CHLOR 0.9% 1000 ML INJ 1,000 ML IV SCH (08:59)
[2017-04-02] MEDS ORDERED: PHENYTOIN SODIUM 100 MG CAP PO SCH (09:00)
[2017-04-02] MEDS: AMIODARONE 200 MG TAB PO SCH (09:25)
[2017-04-02 09:26] LABS: HEMATOCRIT 39.5 % (39.0-51.0); MEAN CELL VOLUME 90.9 FL (80.0-100.0); MEAN CORPUSCULAR HEMOGLOBIN 31.6 PG (27.0-34.0); MEAN CORPUSCULAR HGB CONC 34.8 % (32.0-36.0); PLATELET COUNT 180 TH/MM3 (150-450); RED BLOOD COUNT 4.35 MIL/MM3 (4.50-5.90); RED CELL DISTRIBUTION WIDTH 13.2 % (11.6-17.2); REVIEW FLAG FINAL; WHITE BLOOD COUNT 6.5 TH/MM3 (4.0-11.0)
[2017-04-02] MEDS: GABAPENTIN 400 MG CAP PO SCH ×2 (09:26→12:48)
[2017-04-02] MEDS: FOLIC ACID 1 MG TAB PO SCH (09:26)
[2017-04-02] MEDS: THIAMINE HCL 100 MG TAB PO SCH (09:26)
[2017-04-02] MEDS: APIXABAN 2.5 MG TABLET PO SCH (09:26)
[2017-04-02] MEDS: HALOPERIDOL LACTATE ORAL CONC 10 MG/5 ML CUP PO SCH ×2 (09:26→12:48)
[2017-04-02] MEDS: DOCUSATE SODIUM 50 MG/SENNA 8.6 MG TAB PO SCH (09:26)
[2017-04-02] MEDS: MULTIVITAMINS/MINERALS THERAPEUTIC TAB PO SCH (09:27)
[2017-04-02 09:49] LABS: BICARBONATE 22.4 MEQ/L (21.0-32.0); POTASSIUM 3.7 MEQ/L (3.5-5.1)
[2017-04-02] MEDS ORDERED: HALO2S PO (11:55)
[2017-04-02] MEDS ORDERED: QUET1TAB8 PO (11:55)
[2017-04-02] MEDS ORDERED: APIX2.5T PO (11:55)
--- NOTE | 2017-04-02 11:55 | HHI.DCPOC ---
Discharge Care Plan Diagnosis: (1) History of traumatic brain injury (2) Hypothyroid (3) Hypertension (4) Seizure disorder (5) Schizophrenia (6) Atrial fibrillation (7) Altered mental status Goals to Promote Your Health * To prevent worsening of your condition and complications * To maintain your health at the optimal level Directions to Meet Your Goals Take your medications as prescribed Follow your dietary instruction Follow activity as directed Keep your appointments as scheduled Take your immunizations and boosters as scheduled If your symptoms worsen call your PCP, if no PCP go to Urgent Care Center or Emergency Room Smoking is Dangerous to Your Health. Avoid second hand smoke Call the 24-hour hour crisis hotline for domestic abuse at Angel Yang MD Apr 02, 2017 11:55
--- NOTE | 2017-04-02 11:59 | HHI.PR ---
Subjective Remarks Follow up agitation. Patient has no complaints at this time. He is alert and answers questions. States that he feels weak and wants to get stronger. Objective Vitals Vital Signs Date Time Temp Pulse Resp B/P (MAP) Pulse Ox O2 Delivery O2 Flow Rate FiO2 04/02/17 08:49 98.2 70 18 137/75 (95) 95 04/02/17 05:13 98.4 70 16 163/74 (103) 99 04/02/17 00:52 98.0 63 18 104/56 (72) 97 04/01/17 20:35 98.6 65 16 137/70 (92) 93 04/01/17 16:17 97.8 81 20 127/62 (83) 100 04/01/17 13:07 98.2 60 20 136/72 (93) I/O 04/01/17 04/01/17 04/01/17 04/02/17 04/02/17 04/02/17 07:00 15:00 23:00 07:00 15:00 23:00 Intake Total 1220 ml 1476 ml 725 ml Balance 1220 ml 1476 ml 725 ml Intake Oral 220 ml 720 ml IV Total 1000 ml 756 ml 725 ml # Voids 1 3 # Bowel Movements 2 Result Diagram: 04/02/17 0846 04/02/1746 Imaging Last Impressions Head Magnetic Resonance Angiography 03/28/17 0000 Signed Impressions: Service Date/Time: March 09:20 - CONCLUSION: 1. Very limited examination. The intracranial circulation is very difficult to visualize distal to the M1 segments. Centrally it appears patent. Osorio Zhou MD Head CT 03/26/17732 Signed Impressions: Service Date/Time: Sunday, March 26, 2017 08:02 - CONCLUSION: 1. Prominent bilateral old ischemic changes. 2. No acute intracranial abnormality or significant interval change. Oskar Alex MD Chest X-Ray 03/26/17732 Signed Impressions: Service Date/Time: Sunday, March 26, 2017 08:25 - CONCLUSION: No acute cardiopulmonary disease. Oskar Alex MD Objective Remarks General: No acute distress. Heart: Regular rate and rhythm. No murmur. Lungs: Clear to auscultation bilaterally. No wheezes, rales, or rhonchi. Breathing is nonlabored. Abdomen: Soft, nontender, nondistended. Extremities: No lower extremity edema. Psych: Awake, alert. Still confused, but appears more oriented than yesterday. Procedures None Urinary Catheter: No Vascular Central Line Catheter: No A/P Problem List: (1) History of traumatic brain injury ICD Code: Z87.820 - History of traumatic brain injury Status: Chronic (2) Schizophrenia ICD Code: F20.9 - Schizophrenia Status: Chronic (3) Seizure disorder ICD Code: G40.909 - Seizure disorder Status: Chronic (4) Hypertension ICD Code: I10 - Hypertension Status: Chronic (5) Hypothyroid ICD Code: E03.9 - Hypothyroid Status: Chronic (6) Atrial fibrillation ICD Code: I48.91 - Atrial fibrillation Status: Chronic (7) Altered mental status ICD Code: R41.82 - Altered mental status Status: Acute Assessment and Plan 1. Acute agitation: Improved. Continue Seroquel, Haldol. Appreciate psychiatry, neurology recommendations. 2. Seizure disorder: Dilantin level was subtherapeutic on arrival, then was supratherapeutic. Now in therapeutic range. Appreciate neurology recommendations. Continue Dilantin 200mg BID. 3. Schizophrenia: Continue current medications. Appreciate psychiatry recommendations. 4. Hypertension: Continue amlodipine. BP well controlled. 5. Atrial fibrillation: Continue amiodarone, Eliquis. 6. DVT prophylaxis: Eliquis. Discharge Planning Discharge to SNF when arrangements are made. Problem Qualifiers (1) Altered mental status: Qualified Codes: R40.1 - Stupor Angel Yang MD Apr 02, 2017 11:59
[2017-04-02 13:14] VITALS: BP 88/56; PULSE 68; RESP 18; TEMP 98.3; O2SAT 95
--- NOTE | 2017-04-02 14:17 | HHI.FF ---
Face to Face Verification Diagnosis: (1) History of traumatic brain injury (2) Hypothyroid (3) Hypertension (4) Seizure disorder (5) Schizophrenia (6) Atrial fibrillation Physical Therapy Order: Evaluate and Treat Home Health Nursing Order: Nursing assessment with vital signs I have seen patient Rodrigo Rai on 04/02/17. My clinical findings support the need for the requested home health care services because: Limited ability to care for self I certify that my clinical findings support that this patient is homebound because: Unsafe to leave home unassisted Angel Yang MD Apr 02, 2017 14:17
--- NOTE | 2017-04-30 14:37 | HHI.DS ---
Discharge Summary Admission Date Mar 26, 2017 at 10:21 Discharge Date: May 03, 2017 Admitting Diagnosis status epilepticus, altered mental status (1) History of traumatic brain injury ICD Code: Z87.820 - History of traumatic brain injury Status: Chronic (2) Schizophrenia ICD Code: F20.9 - Schizophrenia Status: Chronic (3) Seizure disorder ICD Code: G40.909 - Seizure disorder Status: Chronic (4) Hypertension ICD Code: I10 - Hypertension Status: Chronic (5) Hypothyroid ICD Code: E03.9 - Hypothyroid Status: Chronic (6) Atrial fibrillation ICD Code: I48.91 - Atrial fibrillation Status: Chronic (7) Altered mental status ICD Code: R41.82 - Altered mental status Status: Acute Procedures None Brief History - From Admission This is a 66yM with history of schizophrenia, afib, and seizure disorders who presented to the ED from his SNF after he had medication noncompliance x 2 days and then presented with seizures. Patient was given serial ativan doses. he was protecting his airway, but he was somnolent. he is admitted to ICU for close monitoring. unfortunately, no information can be obtained from the patient. I evaluated him on admission to the ICU. On admission to the ICU, he was not somnolent but aggressive and combative. Imaging Last Impressions Head Magnetic Resonance Angiography 03/28/17 0000 Signed Impressions: Service Date/Time: March 09:20 - CONCLUSION: 1. Very limited examination. The intracranial circulation is very difficult to visualize distal to the M1 segments. Centrally it appears patent. Osorio Zhou MD Head CT 03/26/17 0733 Signed Impressions: Service Date/Time: Sunday, March 26, 2017 08:02 - CONCLUSION: 1. Prominent bilateral old ischemic changes. 2. No acute intracranial abnormality or significant interval change. Oskar Alex MD Chest X-Ray 03/26/1733 Signed Impressions: Service Date/Time: Sunday, March 26, 2017 08:25 - CONCLUSION: No acute cardiopulmonary disease. Oskar Alex MD PE at Discharge General: No acute distress. Heart: Regular rate and rhythm. No murmur. Lungs: Clear to auscultation bilaterally. No wheezes, rales, or rhonchi. Breathing is nonlabored. Abdomen: Soft, nontender, nondistended. Extremities: No lower extremity edema. Psych: Awake, alert. Still confused, but appears more oriented than yesterday. Hospital Course The patient was admitted to the critical care service for management of acute agitated delirium. He is placed on Precedex drip and became hypotensive. He was given Haldol IV. Neurology was consulted for seizures. His phenytoin level was subtherapeutic. Psychiatry was consulted. His mental status improved and he did not have further seizure activity. Dilantin dosing was adjusted. Arrangements were made for the patient to be discharged back to senior care facility. Pt Condition on Discharge: Stable Discharge Disposition: [facility] Discharge Time: > 30 minutes Discharge Instructions DIET: Follow Instructions for: Heart Healthy Diet Speech Therapy-Diet Recommends: Mechanical Soft Activities you can perform: See Additionl Instruction Other Activity Instructions: With assistance Follow up Referrals: Neurology - 1 Week with Cedrick Miner MD PCP Follow-up - 2 Weeks New Medications: Apixaban (Eliquis) 2.5 Mg Tab 2.5 MG PO BID for Blood Clot Prevention, #60 TAB 0 Refills Haloperidol Liq (Haloperidol Liq) 2 Mg/Ml Conc 5 MG PO TID for Agitation for 30 Days, ML 0 Refills Quetiapine (Quetiapine) 100 Mg Tab 200 MG PO HS for Agitation, #30 TAB 0 Refills Continued Medications: Acetaminophen (Tylenol) 325 Mg Tab 325 MG PO Q4H PRN for PAIN SCALE 1 TO 10, TAB 0 Refills Amiodarone (Amiodarone) 200 Mg Tab 200 MG PO DAILY for Regulate Heart Beat, #30 TAB 0 Refills Amlodipine (Amlodipine) 10 Mg Tab 10 MG PO DAILY for Blood Pressure Management, #30 TAB 0 Refills Folic Acid (Folic Acid) 1 Mg Tablet 1 MG PO DAILY Gabapentin (Gabapentin) 400 Mg Cap 400 CAP PO TID, #30 CAP 0 Refills Mirtazapine (Mirtazapine) 15 Mg Tab 15 MG PO HS for Depression Control, #30 TAB 0 Refills Multivitamin with Minerals ([place] Multivitamin with Mineral) 1 Each Tablet 1 TAB PO DAILY Phenytoin Extended (Dilantin) 100 Mg Cap 200 MG PO BID for Control Seizures, #180 CAP 0 Refills Thiamine (Vitamin B-1) 100 Mg Tab 100 MG PO DAILY for Nutritional Supplement, TAB 0 Refills Discontinued Medications: Apixaban (Eliquis) 5 Mg Tab 5 MG PO DAILY for Blood Clot Prevention, #60 TAB 0 Refills Quetiapine (Quetiapine) 100 Mg Tab 100 MG PO BID, #60 TAB 0 Refills Angel Yang MD Apr 30, 2017 14:37
== END 2017-04-02 16:47 | DRG 101 ==
LOC: NEPE 07:25 → NEDA 10:21 → HIMW 13:45 → HIMN 13:57 → N05A 03-29 16:36
PROVIDERS: ADMIT Family Medicine; ATTEND Family Medicine
DX: G40.901 Epilepsy, unspecified, not intractable, with status epilepticus (principal); E87.2 Acidosis; F01.50 Vascular dementia, unspecified severity, without behavioral disturbance, psychotic disturbance, mood disturbance, and anxiety; G21.4 Vascular parkinsonism; I48.91 Unspecified atrial fibrillation; E03.9 Hypothyroidism, unspecified; E86.0 Dehydration; I10 Essential (primary) hypertension; Z78.1 Physical restraint status; E78.5 Hyperlipidemia, unspecified; R40.2420 Glasgow coma scale score 9-12, unspecified time; N28.9 Disorder of kidney and ureter, unspecified; H91.90 Unspecified hearing loss, unspecified ear; F20.9 Schizophrenia, unspecified; Z86.718 Personal history of other venous thrombosis and embolism; Z86.73 Personal history of transient ischemic attack (TIA), and cerebral infarction without residual deficits; Z91.14 Patient's other noncompliance with medication regimen; F41.8 Other specified anxiety disorders
CPT/HCPCS: 70450; 70544; 71010; 76937; 80048; 80053; 80185; 81001; 82140; 82550; 83735; 84132; 84443; 84484; 85025; 85027; 85610; 87641; 93005; 94667; 95819; 96365; 96367; 96375; J1165; J1630; J2060; J3480; J3486; J7030; J7050; Q2009

== ENCOUNTER 2018-06-24 07:53 | Inpatient (IN) ==
[2018-06-24] MEDS ORDERED: levETIRAcetam 1000mg/100mL Inj 100 ML IV.SIG ONE (08:00)
--- NOTE | 2018-06-24 08:09 | ED ---
HPI General Chief Complaint: Seizure Stated Complaint: seizure Time Seen by Provider: 06/24/18 07:55 Source: EMS and old records reviewed Mode of arrival: EMS Limitations: altered mental status History of Present Illness HPI Narrative: The patient is a 67-year-old male with history of seizure disorder, CVA, hypertension, dementia that was brought in by EMS from long-term due to multiple seizures this morning. His Keppra was increased from 500 twice daily to 1000 twice daily but the staff states that he has been having recurrent seizures and today he has been seizing all day. Important to note that when the patient came to our facility he appeared that he was seizing but he opens his eyes on command and stimuli likely has a resting tremor as well. Personally took care furnace caretaker arrived at 845 and were informed after the conference call that the patient had a fall on Saturday and another fall last night and has been having recurrent seizures for the past few days along with a left facial droop. He had several episodes of seizure activity yesterday and the day before he had another one at 7 AM that lasted at around 3 minutes 1 at 7 :10 that lasted 1 minute and an additional one at 7:15 that lasted less than 5 minutes. As per EMS he had a seizure on the way here as well and they gave him Versed. MD complaint: Reports seizure Description of Episode: Reports loss of consciousness, tonic-clonic movement and post-event confusion; Denies bladder incontinence and bowel incontinence Witnessed: yes - by other (senior care staff) Seizure History: Reports known seizure disorder and compliant with medication; Denies history of non-compliance with treatment Place: other (Care Home) Possible Precipitating Event: Reports none Treatments prior to arrival: Reports benzodiazepines (Versed by EMS) Related Data Home Medications Medication Instructions Recorded Confirmed acetaminophen [Tylenol] 325 mg PO Q4-6H PRN 06/22/18 06/24/18 divalproex [Depakote] 500 mg PO TID 06/22/18 06/24/18 fentanyl 1 patch TRANSDERMAL Q72H 06/22/18 06/24/18 levetiracetam [Keppra] 1,000 mg PO BID 06/22/18 06/24/18 quetiapine [Seroquel] 25 mg PO BID 06/22/18 06/24/18 quetiapine [Seroquel] 100 mg PO HS 06/22/18 06/24/18 amlodipine [Norvasc] 10 mg PO DAILY 06/24/18 06/24/18 apixaban [Eliquis] 2.5 mg PO BID 06/24/18 06/24/18 haloperidol lactate 5 mg PO TID 06/24/18 06/24/18 thiamine HCl (vitamin B1) [Vitamin 100 mg PO DAILY 06/24/18 06/24/18 B-1] Previous Rx's Medication Instructions Recorded amoxicillin 500 mg PO BID 10 Days #20 cap 06/22/18 Allergies Allergy/AdvReac Type Severity Reaction Status Date / Time strawberry Allergy Unknown Swelling Verified 06/24/18 08:08 Review of Systems ROS Unobtainable ROS Unobtainable: unobtainable due to mental status PMFSH History History Provided By: Medical Record and Managing Editor / EMT Medical History Medical History Alzheimer disease (Acute) Anxiety (Acute) Atrial fibrillation (Acute) Bipolar disorder (Acute) GERD (gastroesophageal reflux disease) (Acute) History of DVT (deep vein thrombosis) (Acute) History of gastric ulcer (Acute) Hypercholesterolemia (Acute) Left scapula fracture (Acute ~2009) Schizophrenia (Acute) Seizure (Acute) Seizure disorder (Acute) Traumatic brain injury (Acute ~2002) Acute insomnia (Acute) Constipation (Acute) Dementia (Acute) Depression (Acute) Hypertension (Acute) Stroke (Acute) Surgical History Surgical History History of craniotomy (Acute ~2002) Family History Family History Father Liver cirrhosis Mother Cancer Social History Social History Substance History: Unable to Obtain Second Hand Smoke Exposure: No Smoking Status: Unknown if ever smoked How Often Do You Have a Drink Containing Alcohol: Never (Patient began drinking after high school; previously drinking up to 6 drinks daily) Recent Travel in [facility] within the Last 8 Weeks: No Recent Out of Country Travel within the Last 8 Weeks: No Exam Narrative Exam Narrative: GENERAL: Obtunded opens eyes to sternal rub and voice command. Does not answer question does not follow commands SKIN: Focused skin assessment warm/dry. HEAD: Atraumatic. Normocephalic. EYES: Pupils equal 3mm and round. PERRLA No scleral icterus. No injection or drainage. ENT: No nasal bleeding or discharge. Mucous membranes pink and moist. NECK: Trachea midline. No JVD. CARDIOVASCULAR: Regular rate and rhythm. No murmur appreciated. RESPIRATORY: No accessory muscle use. Clear to auscultation. Breath sounds equal bilaterally. GASTROINTESTINAL: Abdomen soft, non-tender, nondistended. Hepatic and splenic margins not palpable. MUSCULOSKELETAL: No obvious deformities. No clubbing. No cyanosis. No edema. NEUROLOGICAL: Unable to assess patient is obtunded he does have a left facial droop which per EMS is remnant from his previous CVA. There is some blood around his lips suggestive of tongue biting. Patient appears to move all extremities and distracts and localizes to pain. PSYCHIATRIC: Appropriate mood and affect; insight and judgment normal. Procedures Intubation Time Out Performed: Yes Sedative: etomidate Mg Given: 20 Paralytic: rocuronium Mg Given: 80 Laryngoscope: fiber optic video scope ET Tube Size: 8 ET Tube Uncuffed: Yes Tube Secured Depth (cm): 24 Tube Secured Location: lips Tube Placement Confirmation: visualized tube passing through cords, equal breath sounds bilaterally, no breath sounds over epigastrium and confirmation by capnometry Patient Tolerated Procedure: well and no complications Intubation Complications: none Course Hospital Course: We called . Lindy Rojo who is the power of patent prosecution attorney and legal guardian of Mr. castillo and were actually informed that the patient is very verbal and he had a fall this past Saturday which she was seen here at [place] and had a negative CT was discharged home and has been having seizures over the weekend. She also stated that she noticed a facial droop this past weekend and yesterday he was his normal self but then he started having seizures last night. Ms. Lindy Rojo would like us to go on with intubation to protect the patient's airway and aggressive care. Reevaluation(s) Reevaluation #1: Patient was intubated successfully. He was premedicated with lidocaine to reduce intracranial pressure. Rocuronium and etomidate were used. He will be admitted to the ICU. Time: 09:43 Initial Documented Vital Signs Temperature 99.6 F 06/24/18 08:01 Pulse Rate 74 06/24/18 08:01 Respiratory Rate 15 06/24/18 08:01 Blood Pressure 106/62 06/24/18 08:01 Pulse Oximetry 96 06/24/18 08:01 Last Documented Vital Signs Temperature 99.6 F 06/24/18 08:01 Pulse Rate 73 11/20/18 16:56 Respiratory Rate 19 06/24/18 16:56 Blood Pressure 134/70 06/24/18 12:00 Pulse Oximetry 100 06/24/18 16:52 Critical Care Time Critical Care Time: Yes Total Critical Care Time: 45 Attestation: Aggregate critical care time was 45 minutes. Time to perform other separately billable procedures was not included in the critical care time. My time did not include minutes spent treating any other patients simultaneously or on activities that did not directly contribute to the patient's treatment. The services I provided to this patient were to treat and/or prevent clinically significant deterioration that could result in: I provided critical care services requiring my management, as noted below: Chart data review, documentation time, medication orders and management, vital sign assessments/reviewing monitor data, ordering and reviewing lab tests, ordering and interpreting/reviewing x-rays and diagnostic studies, care of the patient and discussion of the patient with the admitting physicians. Medical Decision Making MDM Narrative Medical decision making narrative: Patient with persistent seizures and intracranial bleed. Neurosurgery was consulted. He was intubated for airway protection. Prior to intubation he was premedicated with lidocaine to reduce the intracranial pressure during RSI. He also received loading dose of Keppra at 1000 mg Kcentra to the fact he is on Eliquis and had a brain bleed and was admitted to the neuro ICU. Medical Screen Exam Complete: Yes Emergency Medical Condition: Yes Medical Records Medical records reviewed: Yes I reviewed the patient's medical records. Lab Data Lab results reviewed: Yes I reviewed the patient's lab results. Result diagrams: 06/24/18 08:05 06/24/18 08:05 Lab Results 06/24/18 06/24/18 06/24/18 Range/Units 08:05 08:05 08:05 WBC 6.4 (4.0-11.0) th/mm3 RBC 3.58 L (4.50-5.90) mil/mm3 Hgb 11.5 L (13.0-17.0) gm/dL Hct 33.7 L (39.0-51.0) % MCV 94.2 (80.0-100.0) fL MCH 32.2 (27.0-34.0) pg MCHC 34.2 (32.0-36.0) % RDW 12.7 (11.6-17.2) % Plt Count 141 L (150-450) th/mm3 MPV 6.9 L (7.0-11.0) fL Neut % (Auto) 81.3 H (16.0-70.0) % Lymph % (Auto) 9.0 (9.0-44.0) % [place] % (Auto) 9.3 H (0.0-8.0) % Eos % (Auto) 0.1 (0.0-4.0) % Baso % (Auto) 0.3 (0.0-2.0) % Neut # (Auto) 5.2 (1.8-7.7) th/mm3 Lymph # (Auto) 0.6 L (1.0-4.8) th/mm3 [place] # (Auto) 0.6 (0.0-0.9) th/mm3 Eos # (Auto) 0.0 (0.0-0.4) th/mm3 Baso # (Auto) 0.0 (0.0-0.2) th/mm3 WBC Differential . Differential Comment Auto diff final PT 11.2 (9.8-11.6) sec INR 1.1 Ratio APTT 28.9 (23.4-31.7) sec Puncture Site Patient Temperature O2 Saturation (90-100) % ABG pH (7.380-7.420) ABG pCO2 (38-42) mmHg ABG pO2 (61-120) mmHg ABG HCO3 (22-26) mmol/L ABG O2 Content (12.0-20.0) Vol % ABG Base Excess (-2-2) mmol/L ABG Methemoglobin (0-2) % Rell Test Hemoglobin (12.0-16.0) G/DL Carboxyhemoglobin (0-4) % O2 Delivery Device Vent Setting Inspired O2 % Critical Value Sodium 144 (136-145) meq/L Potassium 4.0 (3.5-5.1) meq/L Chloride 110 H (98-107) meq/L Carbon Dioxide 27.4 (21.0-32.0) meq/L Anion Gap 7 (5-15) meq/L BUN 18 (7-18) mg/dL Creatinine 0.95 (0.60-1.30) mg/dL Estimated GFR 79 L (>89) mL/min Random Glucose 108 H (74-106) mg/dL Calcium 8.6 (8.5-10.1) mg/dL Magnesium 1.7 (1.5-2.5) mg/dL Total Bilirubin 0.5 (0.2-1.0) mg/dL AST 24 (15-37) U/L ALT 22 (12-78) U/L Alkaline Phosphatase 81 (45-117) U/L Total Protein 6.5 (6.4-8.2) g/dL Albumin 3.0 L (3.4-5.0) g/dL Urine Color (Yellw/Straw) Urine Clarity (Clear) Urine pH (5.0-8.5) Ur Specific [place] (1.002-1.035) Urine Protein (Neg-Trace) mg/dL Urine Glucose (UA) (Negative) mg/dL Urine Ketones (Negative) mg/dL Urine Occult Blood (Negative) Urine Nitrate (Negative) Urine Bilirubin (Negative) Urine Urobilinogen (Less than 2) mg/dL Ur Leukocyte Esterase (Negative) Urine RBC (0-3) /hpf Urine WBC (0-5) /hpf Ur Squamous Epith Cells (0-5) /hpf Urine Bacteria (None) /hpf Hyaline Casts (0-3) /lpf Urine Mucus (Occasional) /lpf Ur Microscopic Review 06/24/18 06/24/18 Range/Units 08:20 10:52 WBC (4.0-11.0) th/mm3 RBC (4.50-5.90) mil/mm3 Hgb (13.0-17.0) gm/dL Hct (39.0-51.0) % MCV (80.0-100.0) fL MCH (27.0-34.0) pg MCHC (32.0-36.0) % RDW (11.6-17.2) % Plt Count (150-450) th/mm3 MPV (7.0-11.0) fL Neut % (Auto) (16.0-70.0) % Lymph % (Auto) (9.0-44.0) % [place] % (Auto) (0.0-8.0) % Eos % (Auto) (0.0-4.0) % Baso % (Auto) (0.0-2.0) % Neut # (Auto) (1.8-7.7) th/mm3 Lymph # (Auto) (1.0-4.8) th/mm3 [place] # (Auto) (0.0-0.9) th/mm3 Eos # (Auto) (0.0-0.4) th/mm3 Baso # (Auto) (0.0-0.2) th/mm3 WBC Differential Differential Comment PT (9.8-11.6) sec INR Ratio APTT (23.4-31.7) sec Puncture Site Left radial Patient Temperature 98.6 O2 Saturation 98 (90-100) % ABG pH 7.43 H (7.380-7.420) ABG pCO2 36 L (38-42) mmHg ABG pO2 155 H (61-120) mmHg ABG HCO3 23 (22-26) mmol/L ABG O2 Content 16.4 (12.0-20.0) Vol % ABG Base Excess -0.6 (-2-2) mmol/L ABG Methemoglobin 0.6 (0-2) % Rell Test Present Hemoglobin 11.7 L (12.0-16.0) G/DL Carboxyhemoglobin 1.0 (0-4) % O2 Delivery Device Ventilator Vent Setting 550/16/+5/1.0 Inspired O2 40 % Critical Value No Sodium (136-145) meq/L Potassium (3.5-5.1) meq/L Chloride (98-107) meq/L Carbon Dioxide (21.0-32.0) meq/L Anion Gap (5-15) meq/L BUN (7-18) mg/dL Creatinine (0.60-1.30) mg/dL Estimated GFR (>89) mL/min Random Glucose (74-106) mg/dL Calcium (8.5-10.1) mg/dL Magnesium (1.5-2.5) mg/dL Total Bilirubin (0.2-1.0) mg/dL AST (15-37) U/L ALT (12-78) U/L Alkaline Phosphatase (45-117) U/L Total Protein (6.4-8.2) g/dL Albumin (3.4-5.0) g/dL Urine Color Yellow (Yellw/Straw) Urine Clarity Hazy H (Clear) Urine pH 5.0 (5.0-8.5) Ur Specific [place] 1.021 (1.002-1.035) Urine Protein 30 H (Neg-Trace) mg/dL Urine Glucose (UA) Negative (Negative) mg/dL Urine Ketones 20 (Negative) mg/dL Urine Occult Blood Small H (Negative) Urine Nitrate Negative (Negative) Urine Bilirubin Negative (Negative) Urine Urobilinogen Less than 2 (Less than 2) mg/dL Ur Leukocyte Esterase Negative (Negative) Urine RBC 3 (0-3) /hpf Urine WBC 1 (0-5) /hpf Ur Squamous Epith Cells <1 (0-5) /hpf Urine Bacteria Rare H (None) /hpf Hyaline Casts 4 (0-3) /lpf Urine Mucus Few H (Occasional) /lpf Ur Microscopic Review Not Reportable Imaging Data Radiologist's impression: Chest X-Ray 06/24/18 08:00 CONCLUSION: No acute cardiopulmonary disease. Head CT 06/24/18 08:00 CONCLUSION: 1. Acute intraparenchymal hemorrhage involving the right frontal lobe, right temporal lobe, and acute subdural hemorrhage involving the right frontal lobe and interhemispheric fissure. There is no mass effect. 2. Multiple areas of encephalomalacia are stable. . Chest X-Ray 06/24/18 09:42 CONCLUSION: 1. No endotracheal tube observed on this projection. 2. Clear lungs. Shoulder X-Ray 06/24/18 09:42 CONCLUSION: Acute nondisplaced humeral neck fracture. ECG Data Attestation: I personally reviewed and interpreted this ECG as follows: Interpretation: Sinus rhythm with first-degree AV block. Ventricular rate of 70 bpm. OR interval prolonged at 238 ms. QTC at 417 ms. Normal axis nonspecific ST-T wave abnormalities. Discharge Plan Discharge Disposition Patient Disposition: 30 Still Patient Discharge Condition Condition: Critical Discharge Details Diagnosis: Intractable seizure disorder, ICH (intracerebral hemorrhage) Physicians Team ED Provider: Jonathan Frederick Primary Care Provider: UNKNOWN, Attending Provider: Joon Pineda Other Providers: Sal Jones ; Cedrick Miner ; Eulalio Milan ; Shirin Foss Discharge Interventions Interventions: ED Discharge Assessment Last Done: 06/24/18 13:09 Status ED Status: Left Department Discharge Information Discharge Date/Time: 06/24/18 13:00
[2018-06-24] MEDS: Sod Chloride 0.9% Inj 1,000 ML IV.CONT SCH ×3 (08:15→19:47)
[2018-06-24 08:19] LABS: Baso % (Auto) 0.3 % (0.0-2.0); Eos % (Auto) 0.1 % (0.0-4.0); Hematocrit 33.7 % (39.0-51.0); Hemoglobin 11.5 gm/dL (13.0-17.0); Lymph # (Auto) 0.6 th/mm3 (1.0-4.8); Mean Corpuscular HGB Conc 34.2 % (32.0-36.0); Mean Corpuscular Hemoglobin 32.2 pg (27.0-34.0); Mean Corpuscular Volume 94.2 fL (80.0-100.0); Mean Platelet Volume 6.9 fL (7.0-11.0); Mono # (Auto) 0.6 th/mm3 (0.0-0.9); Mono % (Auto) 9.3 % (0.0-8.0); Neut # (Auto) 5.2 th/mm3 (1.8-7.7); Neut % (Auto) 81.3 % (16.0-70.0); Platelet Count 141 th/mm3 (150-450); Red Blood Count 3.58 mil/mm3 (4.50-5.90); Red Cell Distribution Width 12.7 % (11.6-17.2); White Blood Count 6.4 th/mm3 (4.0-11.0)
[2018-06-24 08:32] LABS: Anion Gap 7 meq/L (5-15); Aspartate Aminotransferase 24 U/L (15-37); Blood Urea Nitrogen 18 mg/dL (7-18); Calcium 8.6 mg/dL (8.5-10.1); Carbon Dioxide 27.4 meq/L (21.0-32.0); Chloride 110 meq/L (98-107); Glomerular Filtration Rate 79 mL/min (>89); Glucose,Random 108 mg/dL (74-106); Magnesium 1.7 mg/dL (1.5-2.5); Sodium 144 meq/L (136-145)
[2018-06-24 08:33] LABS: Alanine Aminotransferase 22 U/L (12-78)
[2018-06-24 08:35] LABS: Alkaline Phosphatase 81 U/L (45-117); Total Protein 6.5 g/dL (6.4-8.2)
[2018-06-24 08:42] LABS: Bacteria,Urine Rare /hpf; Bilirubin,Urine Negative (Negative); Clarity,Urine Hazy (Clear); Color,Urine Yellow (Yellw/Straw); Glucose,Urine (UA) Negative (Negative); Hyaline Casts,Urine 4 /lpf (0-3); Leukocyte Esterase,Urine Negative (Negative); Mucus,Urine Few /lpf (Occasional); Nitrite,Urine Negative (Negative); Specific Gravity,Urine 1.021 (1.002-1.035); Squamous Epithelial Cell,Urine <1 /hpf (0-5)
--- NOTE | 2018-06-24 08:45 | CT ---
EXAM DATE: 06/24/2018 8:40 AM EST AGE/SEX: 67 years / Male INDICATIONS: Seizures. CLINICAL DATA: This is the patient's initial encounter. Patient reports that signs and symptoms have been present for 1 day and indicates a pain score of Nonresponsive. MEDICAL/SURGICAL HISTORY: Seizures. Alzheimer's disease. Stroke. Hypertension. Craniotomy. RADIATION DOSE: 38.24 CTDI (mGy) COMPARISON: [facility] – [place], CT HEAD W/O CONTRAST, 06/22/2018. . TECHNIQUE: CT of the head without contrast. Using automated exposure control and adjustment of the mA and/or kV according to patient size, radiation dose was kept as low as reasonably achievable to ob tain optimal diagnostic quality images. DICOM format image data is available electronically for revi ew and comparison. FINDINGS: There is a large intraparenchymal hemorrhage involving the inferior margin of the right frontal lobe as well as the tip of the right temporal lobe. Small volume acute subdural hemorrhage seen in the int erhemispheric fissure between the frontal lobes. There is a small volume of acute subdural hemorrhage overlying the right frontal lobe as well. Encephalomalacia again noted involving the left parietal l obe, right parietal lobe, and right temporal lobe. Ex vacuo dilatation seen involving the associated lateral ventricles. No midline shift or herniation. Prior craniotomy involving the right temporal reg ion. No acute fracture. Orbital structures and paranasal sinuses are normal. CONCLUSION: 1. Acute intraparenchymal hemorrhage involving the right frontal lobe, right temporal lobe, and acut e subdural hemorrhage involving the right frontal lobe and interhemispheric fissure. There is no mass effect. 2. Multiple areas of encephalomalacia are stable. . Electronically signed by: Raul Ortiz MD 06/24/2018 8:44 AM EST
[2018-06-24 09:13] LABS: Activated Partial Thrombo Time 28.9 sec (23.4-31.7); INR 1.1 Ratio; Prothrombin Time 11.2 sec (9.8-11.6)
--- NOTE | 2018-06-24 09:18 | XR ---
EXAM DATE: 06/24/2018 9:07 AM EST AGE/SEX: 67 years / Male INDICATIONS: Patient unresponsive, found on floor having seizure. CLINICAL DATA: This is the patient's initial encounter. Patient reports that signs and symptoms have been present for 1 day and indicates a pain score of Nonresponsive. MEDICAL/SURGICAL HISTORY: None. None. COMPARISON: [facility] – [place], CHEST SINGLE AP, 03/26/2017. . FINDINGS: A single AP view of the chest demonstrates the lungs to be symmetrically aerated without evidence of mass, infiltrate or effusion. The cardiomediastinal contours are unremarkable. Osseous structures a re intact. CONCLUSION: No acute cardiopulmonary disease. Electronically signed by: Raul Ortiz MD 06/24/2018 9:17 AM EST
[2018-06-24] MEDS ORDERED: Lidocaine 2% 100 MG/5 ML Syringe IV.PUSH ONE (09:21)
--- NOTE | 2018-06-24 09:21 | P.CONNS ---
<Elissa Jarrell - Last Filed: 06/24/18 16:56> History of Present Illness Primary Care Provider: UNKNOWN History of Present Illness: Mr. Rai is a 67 year old male who presents for seizures. History was obtained by his medical record as well as from speaking with his Power of [employer] Advisor as the patient is being intubated when seen. Mr. Rai has a remote history of traumatic brain injury require surgery for evacuation of brain bleed in [place]. He has been residing in a nursing facility but baseline is able to ambulate, converse. He has a history of seizures which has been controlled per the caregiver. This past Saturday he had a fall and was brought to [place] ER. A CT Brain was done at that time which showed no evidence of acute intracranial hemorrhage. He was sent back to the prison. This morning he had multiple seizures and was brought back. New CT Head showed right frontal, right temporal IPH, subdural hemorrhage right frontal and interhemispheric fissure without mass effect. He is currently being intubated by the ED physician. He is on Eloquis and K-Central was given. He is also being given a dose of Mannitol. Neurosurgery is requested for evaluation. [facility] - Medical History Medical History: Medical History (Last Updated 06/24/18 @ 13:05 by LUC Mercer) Alzheimer disease Anxiety Atrial fibrillation Bipolar disorder GERD (gastroesophageal reflux disease) History of DVT (deep vein thrombosis) History of gastric ulcer Hypercholesterolemia Left scapula fracture Onset Date: ~2009 Schizophrenia Seizure Seizure disorder Traumatic brain injury Onset Date: ~2002 Acute insomnia Constipation Dementia Depression Hypertension Stroke - Surgical History Surgical History: Surgical History (Last Updated 06/24/18 @ 13:05 by LUC Mercer) History of craniotomy Onset Date: ~2002 - Family History Family History: Family History (Last Updated 06/24/18 @ 13:06 by LUC Mercer) Father Liver cirrhosis Mother Cancer Medications and Allergies Allergies Allergy/AdvReac Type Severity Reaction Status Date / Time strawberry Allergy Unknown Swelling Verified 06/24/18 08:08 Home Medications Medication Instructions Recorded Confirmed Type acetaminophen [Tylenol] 325 mg PO Q4-6H PRN 06/22/18 06/24/18 History divalproex [Depakote] 500 mg PO TID 06/22/18 06/24/18 History fentanyl 1 patch TRANSDERMAL Q72H 06/22/18 06/24/18 History levetiracetam [Keppra] 1,000 mg PO BID 06/22/18 06/24/18 History quetiapine [Seroquel] 25 mg PO BID 06/22/18 06/24/18 History quetiapine [Seroquel] 100 mg PO HS 06/22/18 06/24/18 History amlodipine [Norvasc] 10 mg PO DAILY 06/24/18 06/24/18 History apixaban [Eliquis] 2.5 mg PO BID 06/24/18 06/24/18 History haloperidol lactate 5 mg PO TID 06/24/18 06/24/18 History thiamine HCl (vitamin B1) [Vitamin 100 mg PO DAILY 06/24/18 06/24/18 History B-1] Active Medications: Active Medications Acetaminophen (Tylenol) 650 mg PO Q6H PRN PRN Reason: PAIN 1-10 AND/OR FEVER >101F Albuterol (Duoneb Neb (Prn)) 1 ampul NEB Q4HR NEB PRN PRN Reason: SHORTNESS OF BREATH Albuterol (Duoneb Neb (Eduardo)) 1 ampul NEB Q6HR NEB EDUARDO Chlorhexidine Gluconate (Chlorhexidine 2% Cloth) 3 pack TOPICAL DAILY@0400 EDUARDO Stop: 06/30/18 03:59 Chlorhexidine Gluconate (Chlorhexidine 2% Cloth) 3 pack TOPICAL DAILY@0400 PRN PRN Reason: Extra cloth needed Stop: 06/30/18 03:59 Chlorhexidine Gluconate (Peridex 0.12% Oral Kit) 15 ml OROPHARYNG BID@0800, 2000 [facility] Famotidine (Pepcid) 20 mg NG/OG BID EDUARDO Haloperidol Lactate (Haldol Lactate Liq) 5 mg PO TID EDUARDO Sodium Chloride (Ns Inj) 1,000 mls @ 125 mls/hr IV.CONT .Q8H [facility] Last Infusion: 06/24/18 13:08 Dose: Infused Nicardipine HCl 25 mg/ Sodium (Chloride) 250 mls @ 50 mls/hr IV.CONT TITRATE PRN; Protocol PRN Reason: Per Protocol Propofol (Diprivan 1000 Mg/100 Ml Inj) 1,000 mg in 100 mls @ 2.585 mls/hr IV.CONT TITRATE PRN; Protocol PRN Reason: Per Protocol Last Titration: 06/24/18 12:00 Dose: 30 mcg/kg/min, 15.51 mls/hr Levetiracetam (Keppra 1000 Mg/100 Ml Premix) 100 mls @ 400 mls/hr IV.SIG Q12H EDUARDO Valproate Sodium 500 mg/ (Sodium Chloride) 105 mls @ 105 mls/hr IV.SIG Q8HR EDUARDO Miscellaneous Medication () 1 each OROPHARYNG 0000,0400,1200,1600 EDUARDO Quetiapine Fumarate (Seroquel) 25 mg PO BID EDUARDO Quetiapine Fumarate (Seroquel) 100 mg PO HS EDUARDO Sodium Chloride (Ns Flush) 2 ml IV.FLUSH PRN PRN PRN Reason: FLUSH AFTER USING IV ACCESS Last Admin: 06/24/18 08:15 Dose: 2 ml Thiamine HCl (Vitamin B1) 100 mg PO DAILY [facility] Exam Vital signs: Vital Signs 06/24/18 08:01 06/24/18 08:16 06/24/18 08:20 Temperature 99.6 F Pulse Rate 74 78 Respiratory Rate 15 18 Blood Pressure 106/62 111/67 Pulse Oximetry 96 96 98 06/24/18 09:00 06/24/18 09:24 06/24/18 09:46 Temperature Pulse Rate 87 97 H 89 Respiratory Rate 18 14 26 H Blood Pressure 187/99 H 133/78 166/97 H Pulse Oximetry 100 98 100 06/24/18 09:54 06/24/18 10:00 06/24/18 10:10 Temperature Pulse Rate 95 H 100 H 102 H Respiratory Rate 18 16 18 Blood Pressure 151/84 H 162/93 H 158/74 H Pulse Oximetry 100 100 100 06/24/18 10:28 06/24/18 11:00 06/24/18 12:00 Temperature Pulse Rate 76 80 Respiratory Rate 16 16 16 Blood Pressure 114/73 134/70 Pulse Oximetry 100 100 100 Intake & Output 06/23/18 06/24/18 06/24/18 18:59 06:59 18:59 Intake Total 1100 / 1100 Balance 1100 / 1100 Weight 86.183 kg Intake: IV 1100 / 1100 NS Inj 1,000 ML @ 125 mls/hr IV 1000 / 1000 .CONT .Q8H EDUARDO Rx#:[id number] Keppra 1000 mg/100 mL Premix 100 / 100 100 ML @ 400 mls/hr IV.SIG ONCE ONE Rx#:[id number] Narrative: GENERAL: Sedated, given paralytic for intubated SKIN: Warm and dry. HEAD: Normocephalic. EYES: Pupils equal and round. No scleral icterus. No injection or drainage. ENT: No nasal bleeding or discharge. Mucous membranes pink and moist. NECK: Trachea midline. No JVD. CARDIOVASCULAR: Regular rate and rhythm. RESPIRATORY: currently being intubated MUSCULOSKELETAL: Extremities without clubbing, cyanosis, or edema. No obvious deformities. NEUROLOGICAL: Sedated. Not following commands for testing Results - Laboratory Findings CBC and BMP: 06/24/18 08:05 06/24/18 08:05 Abnormal lab findings: Abnormal Labs 06/24/18 06/24/18 06/24/18 08:05 08:05 08:20 RBC 3.58 L Hgb 11.5 L Hct 33.7 L Plt Count 141 L MPV 6.9 L Neut % (Auto) 81.3 H [place] % (Auto) 9.3 H Lymph # (Auto) 0.6 L ABG pH ABG pCO2 ABG pO2 Hemoglobin Chloride 110 H Estimated GFR 79 L Random Glucose 108 H Albumin 3.0 L Urine Clarity Hazy H Urine Protein 30 H Urine Occult Blood Small H Urine Bacteria Rare H Urine Mucus Few H 06/24/18 10:52 RBC Hgb Hct Plt Count MPV Neut % (Auto) [place] % (Auto) Lymph # (Auto) ABG pH 7.43 H ABG pCO2 36 L ABG pO2 155 H Hemoglobin 11.7 L Chloride Estimated GFR Random Glucose Albumin Urine Clarity Urine Protein Urine Occult Blood Urine Bacteria Urine Mucus <Sal Jones - Last Filed: 07/06/18 10:37> History of Present Illness Service: Neurosurgery Requesting Physician: Jonathan Frederick Reason for Consult: Intracerebrak hemorrhage Primary Care Provider: UNKNOWN Chief Complaint: Altered mental status History of Present Illness: This is a 67-year-old male with a medical history significant for dementia, seizure disorder, previous stroke, hypertension who was brought [facility] the ER from prison after he had multiple seizures this morning. On arrival in the ER he appeared to be seizing and was intubated by ER physician and placed on mechanical ventilation and sedated with propofol. His CT of Head showed left frontal intraparenchymal bleed with subdural hemorrhage. Patient was also noted to have a left humerus neck fracture on x- ray. He reportedly has been falling at the prison multiple times. He has been on Eliquis at home and he received K Centra following arrival to the ER for reversal. Neurosurgical consultation was requested His family history was reviewed and unrelated to the present admission Review of Systems unobtainable due to endotracheal tube PMFSH - History History Provided By: Medical Record, Health Promotion Officer / EMT - Medical History Medical History: Medical History (Last Reviewed 07/06/18 @ 10:28 by Sal Jones MD) Alzheimer disease Anxiety Atrial fibrillation Bipolar disorder GERD (gastroesophageal reflux disease) History of DVT (deep vein thrombosis) History of gastric ulcer Hypercholesterolemia Left scapula fracture Onset Date: ~2009 Schizophrenia Seizure Seizure disorder Traumatic brain injury Onset Date: ~2002 Acute insomnia Constipation Dementia Depression Hypertension Stroke - Surgical History Surgical History: Surgical History (Last Reviewed 07/06/18 @ 10:28 by Sal Jones MD) History of craniotomy Onset Date: ~2002 - Family History Family History: Family History (Last Reviewed 07/06/18 @ 10:28 by Sal Jones MD) Father Liver cirrhosis Mother Cancer - Tobacco History Second Hand Smoke Exposure: No Smoking Status: Unknown if ever smoked - Alcohol History How Often Do You Have a Drink Containing Alcohol: Unable to Obtain - Substance Use History Substance History: Unable to Obtain - Travel History Recent Travel in the [place] Within the Last 8 Weeks: No Recent Travel Out of the Country Within the Last 8 Weeks: No - Immunization History Tetanus Immunization: Unable to Assess Medications and Allergies Active Medications: Active Medications Sodium Chloride (Ns Inj) 1,000 mls @ 125 mls/hr IV.CONT .Q8H EDUARDO Last Admin: 06/24/18 08:15 Dose: 125 mls/hr Sodium Chloride (Ns Flush) 2 ml IV.FLUSH PRN PRN PRN Reason: FLUSH AFTER USING IV ACCESS Last Admin: 06/24/18 08:15 Dose: 2 ml Exam Vital signs: Vital Signs 06/24/18 08:01 06/24/18 08:16 06/24/18 08:20 Temperature 99.6 F Pulse Rate 74 78 Respiratory Rate 15 18 Blood Pressure 106/62 111/67 Pulse Oximetry 96 96 98 Intake & Output 06/23/18 06/24/18 06/24/18 18:59 06:59 18:59 Intake Total 100 / 100 Balance 100 / 100 Weight 86.183 kg Intake: IV 100 / 100 Keppra 1000 mg/100 mL Premix 100 / 100 100 ML @ 400 mls/hr IV.SIG ONCE ONE Rx#:[id number] Narrative: GENERAL: Sedated, given paralytic for intubated HEAD: Normocephalic. EYES: Pupils equal and round. No scleral icterus. No injection or drainage. ENT: No nasal bleeding or discharge. Mucous membranes pink and moist. NECK: Trachea midline. No JVD. MUSCULOSKELETAL: Extremities without clubbing, cyanosis, or edema. No obvious deformities. NEUROLOGICAL: Sedated. Not following commands for testing Responds to pain with right upper and lower extremity. Reflexes: Deep tendon reflexes are trace. Left Babinsky Sensory: On examination there there is minimal response to painful stimuli, with right side Cerebellar: Examination cannot be adequately assessed due to the patient's neurological condition. Lungs: clear Heart: Regular rhythm and rate Skin: warm and dry Results - Laboratory Findings CBC and BMP: 07/05/18 05:13 07/06/18 04:52 Abnormal lab findings: Abnormal Labs 06/24/18 06/24/18 06/24/18 08:05 08:05 08:20 RBC 3.58 L Hgb 11.5 L Hct 33.7 L Plt Count 141 L MPV 6.9 L Neut % (Auto) 81.3 H [place] % (Auto) 9.3 H Lymph # (Auto) 0.6 L Chloride 110 H Estimated GFR 79 L Random Glucose 108 H Albumin 3.0 L Urine Clarity Hazy H Urine Protein 30 H Urine Occult Blood Small H Urine Bacteria Rare H Urine Mucus Few H Assessment and Plan - Plan 67-year-old male with: Status epilepticus ICH/SDH Acute respiratory failure on mechanical ventilation Left humerus fracture History of dementia History of stroke Hypertension ' I have reviewed the clinical and radiological findings Chest X-Ray 06/24/18 08:00 CONCLUSION: No acute cardiopulmonary disease. Head CT 06/24/18 08:00 CONCLUSION: 1. Acute intraparenchymal hemorrhage involving the right frontal lobe, right temporal lobe, and acute subdural hemorrhage involving the right frontal lobe and interhemispheric fissure. There is no mass effect. 2. Multiple areas of encephalomalacia are stable. . Chest X-Ray 06/24/18 09:42 CONCLUSION: 1. No endotracheal tube observed on this projection. 2. Clear lungs. Shoulder X-Ray 06/24/18 09:42 CONCLUSION: Acute nondisplaced humeral neck fracture. Neuro: neuro checks in a serial fashion. He is in a very critical condition. Intubated for airway protection. Intracerebral bleed. Will place a ventriculostomy catheter for CSf drainage, monitoring of ICP and CPP. Seizures. Possible status epileptiicus. Loaded with anticonvulsants. EEG. COntule neurology Pulmonary: On full mechanical ventilation, aggressive pulmonary toilette, nasotracheal suction, and breathing treatments with nebulizers. Humerus fracture. Consult orthopedics Coagulopathy. Received K Centra to reverse Eliquis in the ER. PT and OT evaluation Renal: monitor closely urine output, BUN and creatinine Endocrine: Monitor serial Acu checks and SSI as needed in detail ID monitor for signs of infection Protonix for stress ulcer prophylaxis Jd hose and SCD's for DVT prophylaxis Caprini VTE Risk Assessment Caprini VTE Risk Assessment: Moderate/High Risk (score >= 2) VTE Pharmacological Exception Reason: Intracranial lesions Caprini Risk Assessment Model: Point Value = 1 Point Value = 2 Point Value = 3 Point Value = 5 Age 41-60 Minor surgery BMI > 25 kg/m2 Swollen legs Varicose veins or History of unexplained or recurrent spontaneous Oral contraceptives or hormone replacement Sepsis (< 1 month) Serious lung disease, including pneumonia (< 1 month) Abnormal pulmonary function Acute myocardial infarction Congestive heart failure (< 1 month) History of inflammatory bowel disease Medical patient at bed rest Age 61-74 Arthroscopic surgery Major open surgery (> 45 min) Laparoscopic surgery (> 45 min) Malignancy Confined to bed (> 72 hours) Immobilizing plaster cast Central venous access Age >= 75 History of VTE Family history of VTE Factor V Leiden Prothrombin [id number] Lupus anticoagulant Anticardiolipin antibodies Elevated serum homocysteine Heparin-induced thrombocytopenia Other congenital or acquired thrombophilia Stroke (< 1 month) Elective arthroplasty Hip, pelvis, or leg fracture Acute spinal cord injury (< 1 month) Prophylaxis Regimen: Total Risk Factor Score Risk Level Prophylaxis Regimen 0-1 Low Early ambulation 2 Moderate Order ONE of the following: *Sequential Compression Device (SCD) *Heparin 5000 units SQ BID 3-4 Higher Order ONE of the following medications: *Heparin 5000 units SQ TID *Enoxaparin/Lovenox 40 mg SQ daily (WT < 150 kg, CrCl > 30 mL/min) *Enoxaparin/Lovenox 30 mg SQ daily (WT < 150 kg, CrCl > 10-29 mL/min) *Enoxaparin/Lovenox 30 mg SQ BID (WT < 150 kg, CrCl > 30 mL/min) AND/OR *Sequential Compression Device (SCD) 5 or more Highest Order ONE of the following medications: *Heparin 5000 units SQ TID (Preferred with Epidurals) *Enoxaparin/Lovenox 40 mg SQ daily (WT < 150 kg, CrCl > 30 mL/min) *Enoxaparin/Lovenox 30 mg SQ daily (WT < 150 kg, CrCl > 10-29 mL/min) *Enoxaparin/Lovenox 30 mg SQ BID (WT < 150 kg, CrCl > 30 mL/min) AND *Sequential Compression Device (SCD) Further recommendations will be provided depending on the patient's clinical evaluation and follow up studies. The exam, history, and the medical decision-making described in the above note were completed with the assistance of the mid-level provider. I reviewed and agree with the findings presented. I attest that I had a [id number] encounter with the patient on the same day, and personally performed and documented my assessment and findings in the medical record.
[2018-06-24] MEDS ORDERED: Prothrombin Complex Conc Inj 2,000 UNIT in Syringe/Bag 1 EACH IV.SIG ONE (09:22)
[2018-06-24] MEDS ORDERED: Etomidate Inj 40 MG/20 ML Vial IV.PUSH ONE (09:29)
[2018-06-24] MEDS ORDERED: niCARdipine Inj 25 MG in Sodium Chlor 0.9% Inj 240 ML IV.CONT PRN (09:53)
[2018-06-24] MEDS: Propofol 1000 mg/100 ml Inj 1,000 MG/100 ML BOTTLE IV.CONT PRN ×2 (10:08→19:47)
--- NOTE | 2018-06-24 10:28 | XR ---
EXAM DATE: 06/24/2018 10:22 AM EST AGE/SEX: 67 years / Male INDICATIONS: Status post ET Tube placement. CLINICAL DATA: This is the patient's initial encounter. Patient reports that signs and symptoms have been present for 1 day and indicates a pain score of Nonresponsive. MEDICAL/SURGICAL HISTORY: . Seizures. Alzheimer's disease. Stroke. Hypertension. . Craniotomy . [place] [facility] [place]. . FINDINGS: A single AP view of the chest demonstrates the lungs to be symmetrically aerated without evidence of mass, infiltrate or effusion. The cardiomediastinal contours are unremarkable. Osseous structures a re intact. A nasogastric tube is seen with the tip in the region of the fundus of the stomach. No end otracheal tube is observed on this projection. CONCLUSION: 1. No endotracheal tube observed on this projection. 2. Clear lungs. Electronically signed by: Ralu Ortiz MD 06/24/2018 10:27 AM EST
--- NOTE | 2018-06-24 10:43 | XR ---
EXAM DATE: 06/24/2018 10:29 AM EST AGE/SEX: 67 years / Male INDICATIONS: Injury after fall, Deformity. CLINICAL DATA: This is the patient's initial encounter. Patient reports that signs and symptoms have been present for 1 day and indicates a pain score of Nonresponsive. MEDICAL/SURGICAL HISTORY: . Seizures. Alzheimer's disease. Stroke. Hypertension. . Craniotom y. COMPARISON: No prior exams available for comparison. FINDINGS: 2 views of the left shoulder reveal an acute fracture involving the humeral neck. No angulation or di straction. 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 Endotracheal tube and nasogastric tube noted. Scapula is intact. CONCLUSION: Acute nondisplaced humeral neck fracture. Electronically signed by: Raul Ortiz MD 06/24/2018 10:42 AM EST
[2018-06-24 11:05] LABS: ABG Base Excess -0.6 mmol/L (-2-2); ABG PCO2 36 mmHg (38-42); ABG PO2 155 mmHg (61-120)
[2018-06-24] MEDS ORDERED: Etomidate Inj 20 MG/10 ML Ampul IV.PUSH ONE (11:35)
--- NOTE | 2018-06-24 12:55 | P.CONPAL ---
Consult Service: Palliative Care Requesting Physician: Joon Pineda Reason for Consult: a. To assist with evaluation and management of symptoms including: pain b. To assist medical decision maker(s) with: better understanding of current medical conditions; weighing benefits/burdens of medical treatment options; making medical treatment decisions. Primary Care Provider: UNKNOWN History of Present Illness History of Present Illness: Mr. castillo is a 67-year-old shelter resident with a history of seizures, CVA , hypertension, dementia, schizophrenia/bipolar, atrial fibrillation and previous CVA. He presented to [facility] ED via EMS on 06/22/2018 after having multiple seizures earlier that day. Patient received Versed in route to the hospital secondary to seizures. Facility staff later stated the patient had a fall on 06/22/2018 and again on 06/23/2018. He has been having recurrent seizures since that time with a left facial droop. Diagnostic data: * Vital signs: Pulse, 74, respirations 15, BP 106/62, oxygen saturation 96% on 100% FiO2 via nonrebreather, oral temperature 99.6 * WBC: 6.4, hemoglobin 11.5, hematocrit 33.7, platelets 141, neutrophils 81.3% * PT: 11.2, INR 1.1, APTT 28.9 * Sodium: 144, potassium 4.0, chloride 110, carbon dioxide 27.4, glucose 108, calcium 8.6, magnesium 1.7 * BUN: 18, creatinine 0.95, GFR 79 * Total bilirubin 0.5, AST 24, ALT 22, alkaline phosphatase 81 * Total protein: 6.5, albumin 3.0 * Urine culture pending * Chest x-ray showed no acute cardiopulmonary disease * Shoulder x-ray showing an acute nondisplaced humeral neck fracture. * CT head revealed an acute intraparenchymal hemorrhage involving the right frontal lobe, right temporal lobe and acute subdural hemorrhage involving the right frontal lobe and anterior hemispheric seizure. There is no mass-effect. Multiple areas of encephalomalacia are stable CT head revealed left frontal intraparenchymal bleed with subdural hemorrhage. Patient was also noted to have a left humerus fracture on x-ray. Patient is on Eliquis, therefore he received [facility] following arrival to the ED. Neurosurgery was consulted. Dr. Jones evaluated the patient with plan for ventriculostomy. Palliative Care was consulted to assist with symptom management and to discuss with the Guardian the benefits and burdens of his current illnesses and the options regarding future care. Patient seen and assessed in the [facility]. Patient is sedated on propofol and intubated on mechanical ventilation. His left arm is in a sling;tremors noted in the right upper extremity. EEG in progress. Patient completed written advanced directives on 06/15/10. A living will states he would not want his life to be prolonged nor would he want life-sustaining treatment to be provided or continued if his agent believed the burdens of the treatment outweigh the expected benefits. He would want his agent to consider the relief of suffering, the expense involved in the quality as well as the possible extension of his life and making decisions concerning life-sustaining treatment. Patient's daughter, Sharon Castillo, was designated as the healthcare surrogate decision-maker, but she is now . Lindy Rojo is the patient's appointed guardian. Spoke to contact center consultant, [place], who will provide proof of guardianship. Function/Cognitive Trajectory: Patient is a prison shelter resident, requires assistance for all care. Patient has a lengthy psychiatric history. During previous hospitalizations, the daughter reported the patient had never been able to function independently for more than a few days. He moved to [place] in 2011 and shortly thereafter was was [facility]. It appears he was discharged to a care home, and then at some point an [facility] and then a nursing facility. Review of Systems unobtainable due to endotracheal tube PMFSH - History History Provided By: Medical Record, Central Office Trouble Shooter / EMT - Medical History Medical History: Medical History (Last Updated 06/24/18 @ 13:05 by LUC Mercer) Alzheimer disease Anxiety Atrial fibrillation Bipolar disorder GERD (gastroesophageal reflux disease) History of DVT (deep vein thrombosis) History of gastric ulcer Hypercholesterolemia Left scapula fracture Onset Date: ~2009 Schizophrenia Seizure Seizure disorder Traumatic brain injury Onset Date: ~2002 Acute insomnia Constipation Dementia Depression Hypertension Stroke - Surgical History Surgical History: Surgical History (Last Updated 06/24/18 @ 13:05 by LUC Mercer) History of craniotomy Onset Date: ~2002 - Family History Family History: Family History (Last Updated 06/24/18 @ 13:06 by LUC Mercer) Father Liver cirrhosis Mother Cancer - Tobacco History Second Hand Smoke Exposure: No Smoking Status: Unknown if ever smoked - Alcohol History How Often Do You Have a Drink Containing Alcohol: Never (Patient began drinking after high school; previously drinking up to 6 drinks daily) - Substance Use History Substance History: Unable to Obtain - Travel History Recent Travel in the [place] Within the Last 8 Weeks: No Recent Travel Out of the Country Within the Last 8 Weeks: No - Immunization History Tetanus Immunization: Unable to Assess Medications and Allergies Active Medications: Active Medications Acetaminophen (Tylenol) 650 mg PO Q6H PRN PRN Reason: PAIN 1-10 AND/OR FEVER >101F Albuterol (Duoneb Neb (Prn)) 1 ampul NEB Q4HR NEB PRN PRN Reason: SHORTNESS OF BREATH Albuterol (Duoneb Neb (Eduardo)) 1 ampul NEB Q6HR NEB EDUARDO Chlorhexidine Gluconate (Chlorhexidine 2% Cloth) 3 pack TOPICAL DAILY@0400 EDUARDO Stop: 06/30/18 03:59 Chlorhexidine Gluconate (Chlorhexidine 2% Cloth) 3 pack TOPICAL DAILY@0400 PRN PRN Reason: Extra cloth needed Stop: 06/30/18 03:59 Chlorhexidine Gluconate (Peridex 0.12% Oral Kit) 15 ml OROPHARYNG BID@0800, 2000 [facility] Famotidine (Pepcid) 20 mg NG/OG BID EDUARDO Haloperidol Lactate (Haldol Lactate Liq) 5 mg PO TID EDUARDO Sodium Chloride (Ns Inj) 1,000 mls @ 125 mls/hr IV.CONT .Q8H EDUARDO Last Admin: 06/24/18 08:15 Dose: 125 mls/hr Nicardipine HCl 25 mg/ Sodium (Chloride) 250 mls @ 50 mls/hr IV.CONT TITRATE PRN; Protocol PRN Reason: Per Protocol Propofol (Diprivan 1000 Mg/100 Ml Inj) 1,000 mg in 100 mls @ 2.585 mls/hr IV.CONT TITRATE PRN; Protocol PRN Reason: Per Protocol Last Titration: 06/24/18 11:30 Dose: 15 mcg/kg/min, 7.76 mls/hr Levetiracetam (Keppra 1000 Mg/100 Ml Premix) 100 mls @ 400 mls/hr IV.SIG Q12H EDUARDO Valproate Sodium 500 mg/ (Sodium Chloride) 105 mls @ 105 mls/hr IV.SIG Q8HR EDUARDO Miscellaneous Medication () 1 each OROPHARYNG 0000,0400,1200,1600 EDUARDO Quetiapine Fumarate (Seroquel) 25 mg PO BID EDUARDO Quetiapine Fumarate (Seroquel) 100 mg PO HS [facility] Sodium Chloride (Ns Flush) 2 ml IV.FLUSH PRN PRN PRN Reason: FLUSH AFTER USING IV ACCESS Last Admin: 06/24/18 08:15 Dose: 2 ml Thiamine HCl (Vitamin B1) 100 mg PO DAILY EDUARDO Allergies Allergy/AdvReac Type Severity Reaction Status Date / Time strawberry Allergy Unknown Swelling Verified 06/24/18 08:08 Home Medications Medication Instructions Recorded Confirmed Type acetaminophen [Tylenol] 325 mg PO Q4-6H PRN 06/22/18 06/24/18 History divalproex [Depakote] 500 mg PO TID 06/22/18 06/24/18 History fentanyl 1 patch TRANSDERMAL Q72H 06/22/18 06/24/18 History levetiracetam [Keppra] 1,000 mg PO BID 06/22/18 06/24/18 History quetiapine [Seroquel] 25 mg PO BID 06/22/18 06/24/18 History quetiapine [Seroquel] 100 mg PO HS 06/22/18 06/24/18 History amlodipine [Norvasc] 10 mg PO DAILY 06/24/18 06/24/18 History apixaban [Eliquis] 2.5 mg PO BID 06/24/18 06/24/18 History haloperidol lactate 5 mg PO TID 06/24/18 06/24/18 History thiamine HCl (vitamin B1) [Vitamin 100 mg PO DAILY 06/24/18 06/24/18 History B-1] Advance Directives Living Will: Yes (Completed 06/15/2010.) Healthcare Surrogate: Yes (Daughter, Sharon Castillo, is now .) Health Care Surrogate Name and Number: Sharon Castillo Power of Jewelry Setter Name: Lindy Rojo Power of Jewelry Setter Power of Jewelry Setter Relationship to Patient: Legal Guardian/Jewelry Setter Documented care wishes: Patient completed written advanced directives on 06/15/10. A living will states he would not want his life to be prolonged nor would he want life-sustaining treatment to be provided or continued if his agent believed the burdens of the treatment outweigh the expected benefits. He would want his agent to consider the relief of suffering, the expense involved in the quality as well as the possible extension of his life and making decisions concerning life-sustaining treatment. Today's verbally stated goals: Patient is currently sedated and intubated on mechanical ventilation Family/friends goals: Goals are currently aggressive up to the point a cardio-pulmonary resuscitation. Ethical and Legal Issues: No known ethical or legal issues impacting care at this time. Physical Exam Vital Signs: Vital Signs - 24 hr 06/24/18 08:01 06/24/18 08:16 06/24/18 08:20 Temperature 99.6 F Pulse Rate 74 78 Respiratory Rate 15 18 Blood Pressure 106/62 111/67 Pulse Oximetry 96 96 98 06/24/18 09:00 06/24/18 09:24 06/24/18 09:46 Temperature Pulse Rate 87 97 H 89 Respiratory Rate 18 14 26 H Blood Pressure 187/99 H 133/78 166/97 H Pulse Oximetry 100 98 100 06/24/18 09:54 06/24/18 10:00 06/24/18 10:10 Temperature Pulse Rate 95 H 100 H 102 H Respiratory Rate 18 16 18 Blood Pressure 151/84 H 162/93 H 158/74 H Pulse Oximetry 100 100 100 06/24/18 10:28 06/24/18 11:00 Temperature Pulse Rate 76 Respiratory Rate 16 16 Blood Pressure 114/73 Pulse Oximetry 100 100 I&O: Intake & Output 06/22/18 06/23/18 06/24/18 06/25/18 06:59 06:59 06:59 06:59 Intake Total 100 / 100 Balance 100 / 100 Weight 86.183 kg Physical Exam: CONSTITUTIONAL/GENERAL: This is an adequately nourished patient, in no apparent distress. TUBES/LINES/DRAINS: SKIN: No jaundice, rashes, or lesions. Ecchymoses on upper extremities. No wounds seen anteriorly. Skin temperature appropriate. Not diaphoretic. HEAD: Atraumatic. Normocephalic. EYES: Pupils equal and round and reactive. Extraocular motions intact. No scleral icterus. No injection or drainage. Fundi not examined. ENT: Hearing grossly normal. Nose without bleeding or purulent drainage. Throat without visible erythema, exudates, masses, or lesions. NECK: Trachea midline. Supple, nontender. No palpable thyroid enlargement or nodularity. CARDIOVASCULAR: Regular rate and rhythm without murmurs, gallops, or rubs. No JVD. Peripheral pulses symmetric. RESPIRATORY/CHEST: Symmetric, unlabored respirations. Clear to auscultation. Breath sounds equal bilaterally. No wheezes, rales, or rhonchi. GASTROINTESTINAL: Abdomen soft, non-tender, nondistended. No hepato-splenomegaly , or palpable masses. No guarding. Bowel sounds present. GENITOURINARY: Without palpable bladder distension. Schmid catheter in place. MUSCULOSKELETAL: Extremities without clubbing, cyanosis, or edema. No joint tenderness or effusion noted. No calf tenderness. No mottling or clubbing. LYMPHATICS: No palpable cervical or supraclavicular adenopathy. NEUROLOGICAL: Awake and alert. Motor and sensory grossly within normal limits. Follows commands. Cognitively sharp. Moves all extremities. PSYCHIATRIC: No obvious anxiety/depression. no apparent hallucinations or other psychotic thought process. Diagnostic Tests Laboratory: Laboratory Results - last 72 hr 06/24/18 06/24/18 06/24/18 08:05 08:05 08:05 WBC 6.4 RBC 3.58 L Hgb 11.5 L Hct 33.7 L MCV 94.2 MCH 32.2 MCHC 34.2 RDW 12.7 Plt Count 141 L MPV 6.9 L Neut % (Auto) 81.3 H Lymph % (Auto) 9.0 [place] % (Auto) 9.3 H Eos % (Auto) 0.1 Baso % (Auto) 0.3 Neut # (Auto) 5.2 Lymph # (Auto) 0.6 L [place] # (Auto) 0.6 Eos # (Auto) 0.0 Baso # (Auto) 0.0 WBC Differential . Differential Comment Auto diff final PT 11.2 INR 1.1 APTT 28.9 Puncture Site Patient Temperature O2 Saturation ABG pH ABG pCO2 ABG pO2 ABG HCO3 ABG O2 Content ABG Base Excess ABG Methemoglobin Rell Test Hemoglobin Carboxyhemoglobin O2 Delivery Device Vent Setting Inspired O2 Critical Value Sodium 144 Potassium 4.0 Chloride 110 H Carbon Dioxide 27.4 Anion Gap 7 BUN 18 Creatinine 0.95 Estimated GFR 79 L Random Glucose 108 H Calcium 8.6 Magnesium 1.7 Total Bilirubin 0.5 AST 24 ALT 22 Alkaline Phosphatase 81 Total Protein 6.5 Albumin 3.0 L Urine Color Urine Clarity Urine pH Ur Specific [place] Urine Protein Urine Glucose (UA) Urine Ketones Urine Occult Blood Urine Nitrate Urine Bilirubin Urine Urobilinogen Ur Leukocyte Esterase Urine RBC Urine WBC Ur Squamous Epith Cells Urine Bacteria Hyaline Casts Urine Mucus Ur Microscopic Review 06/24/18 06/24/18 08:20 10:52 WBC RBC Hgb Hct MCV MCH MCHC RDW Plt Count MPV Neut % (Auto) Lymph % (Auto) [place] % (Auto) Eos % (Auto) Baso % (Auto) Neut # (Auto) Lymph # (Auto) [place] # (Auto) Eos # (Auto) Baso # (Auto) WBC Differential Differential Comment PT INR APTT Puncture Site Left radial Patient Temperature 98.6 O2 Saturation 98 ABG pH 7.43 H ABG pCO2 36 L ABG pO2 155 H ABG HCO3 23 ABG O2 Content 16.4 ABG Base Excess -0.6 ABG Methemoglobin 0.6 Rell Test Present Hemoglobin 11.7 L Carboxyhemoglobin 1.0 O2 Delivery Device Ventilator Vent Setting 550/16/+5/1.0 Inspired O2 40 Critical Value No Sodium Potassium Chloride Carbon Dioxide Anion Gap BUN Creatinine Estimated GFR Random Glucose Calcium Magnesium Total Bilirubin AST ALT Alkaline Phosphatase Total Protein Albumin Urine Color Yellow Urine Clarity Hazy H Urine pH 5.0 Ur Specific [place] 1.021 Urine Protein 30 H Urine Glucose (UA) Negative Urine Ketones 20 Urine Occult Blood Small H Urine Nitrate Negative Urine Bilirubin Negative Urine Urobilinogen Less than 2 Ur Leukocyte Esterase Negative Urine RBC 3 Urine WBC 1 Ur Squamous Epith Cells <1 Urine Bacteria Rare H Hyaline Casts 4 Urine Mucus Few H Ur Microscopic Review Not Reportable Result Diagrams: 06/25/18 04:58 06/25/18 04:58 Procedures: 06/24/2018: Endotracheal intubation 06/24/2018: NGT placement Patient/Family Conference Issues Discussed: * Palliative care role, purpose, approach * Additional medical, psychosocial, and spiritual history * Patients general health, functional status, and cognitive changes in the months leading up to the current hospitalization * Patient/family understanding of the current medical problems * Patient/family understanding of prognosis * Patients goals of care as best understood from advance directives and/or conversations and/or values * Current medical treatment options and benefits/burdens of those options * Likely scenarios comparing ongoing aggressive care with a transition to comfort measures only * Questions answered to the best of my ability * Palliative care contact information provided Assessment and Plan Pertinent Non-Medical Issues: Psychosocial: Per review of notes: Patient was born in [place], [place]. He moved to [place] in 2011. Both of his parents are . His father from complications of liver cirrhosis at an unknown age, and his mother of cancer when he was an . He was raised by his grandparents. He has no known siblings. Mr. castillo has been and 2 times. Patient reportedly had one daughter, Sharon. She approximately 2 years ago. 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 Patient has had multiple psychiatric hospitalizations. Spiritual: Baptized Taoism, however there is no current active rastafarian affiliation. Legal: Per [place] statutes, in the absence of written advanced directives healthcare proxy decision making falls to the patient's daughter-Sharon. Ethical issues impacting care: No known ethical issues impacting care at this time. Important Contacts: Lindy Rojo, guardian: [phone] Code Status: No Code DNR Plan: * NO CODE * Patient completed written advanced directives on 06/15/10. A living will states he would not want his life to be prolonged nor would he want life- sustaining treatment to be provided or continued if his agent believed the burdens of the treatment outweigh the expected benefits. He would want his agent to consider the relief of suffering, the expense involved in the quality as well as the possible extension of his life and making decisions concerning life-sustaining treatment. * Decision making: Patient's daughter, Sharon Castillo, was designated as the healthcare surrogate decision-maker, but she is now . Lindy Rojo is the patient's appointed guardian. Spoke to contact center consultant, [place], who will provide proof of guardianship. * Discussed patient with Dr. Pineda and RNSarah. * Palliative care contact information provided to patient's guardian * Symptom management-pain: Patient currently sedated on propofol showing no nonverbal signs or symptoms of pain. Potential causes of pain include recent falls, left humerus fracture, invasive lines etc. PRN morphine 2-4 mg is available every 4 hours as needed for pain. Morphine 4 mg administered x1. * Palliative care will continue to follow this patient throughout his hospitalization to establish trust, assist with symptom management and clarification of medical treatment goals. Appreciation Thank you for the opportunity to participate in the care of Rodrigo Castillo. Attestation Attestation: To help prompt me to consider important information that might be impacting today's encounter and assessment, information from prior notes written by myself or my colleagues may have been "brought forward" into today's note. My signature on this note, however, is an attestation that I personally performed the exam, history, and/or decision-making noted today, and, unless otherwise indicated, the interactions with patient, family, and staff as well as the review of records all occurred today. I also attest that the listed assessment and stated plan reflect my best clinical judgment today based on the combination of historical information, prior notes, and today's exam/ interactions. When time spent is documented, it refers only to time spent today by the signer, or if indicated, combined time spent today by collaborating physician/nurse practitioner.
--- NOTE | 2018-06-24 12:59 | P.HPCC ---
History of Present Illness Primary Care Physician: UNKNOWN History of Present Illness: 67-year-old male with a medical history significant for dementia, seizure disorder, previous stroke, hypertension who was brought to the ER from long term after he had multiple seizures this morning. On arrival in the ER he appeared to be seizing and was intubated by ER physician and placed on mechanical ventilation and sedated with propofol. Head CT done in the ER revealed left frontal intraparenchymal bleed with subdural hemorrhage. Patient was also noted to have a left humerus neck fracture on x-ray. He reportedly has been falling at the long term multiple times. Patient has been on Eliquis at home and he received K Centra following arrival to the ER for reversal. Inpatient Certification: I certify that the inpatient services were ordered in accordance with Medicare regulations governing the order. This includes certification that hospital inpatient services are reasonable and necessary and in the case of services not specified as inpatient-only under 42 CFR 419.22(n), that they are appropriately provided as inpatient services in accordance to with the 2-midnight benchmark under 43 CFR 412.3(e) Estimated Total Length of Stay (Days): 7 Plans for Post Hospital Care: Not yet determined Review of Systems unobtainable due to endotracheal tube PMFSH - History History Provided By: Medical Record, Material Control Clerk / EMT - Medical History Medical History: Medical History (Last Reviewed 06/24/18 @ 08:19 by Destiny Goff) Alzheimer disease Seizure Acute insomnia Constipation Dementia Depression Hypertension Stroke - Tobacco History Second Hand Smoke Exposure: No Smoking Status: Unknown if ever smoked - Alcohol History How Often Do You Have a Drink Containing Alcohol: Unable to Obtain - Substance Use History Substance History: Unable to Obtain - Travel History Recent Travel in the [place] Within the Last 8 Weeks: No Recent Travel Out of the Country Within the Last 8 Weeks: No - Immunization History Tetanus Immunization: Unable to Assess Medications and Allergies Active Medications: Active Medications Acetaminophen (Tylenol) 650 mg PO Q6H PRN PRN Reason: PAIN 1-10 AND/OR FEVER >101F Albuterol (Duoneb Neb (Prn)) 1 ampul NEB Q4HR NEB PRN PRN Reason: SHORTNESS OF BREATH Albuterol (Duoneb Neb (Eduardo)) 1 ampul NEB Q6HR NEB EDUARDO Chlorhexidine Gluconate (Chlorhexidine 2% Cloth) 3 pack TOPICAL DAILY@0400 EDUARDO Stop: 06/30/18 03:59 Chlorhexidine Gluconate (Chlorhexidine 2% Cloth) 3 pack TOPICAL DAILY@0400 PRN PRN Reason: Extra cloth needed Stop: 06/30/18 03:59 Chlorhexidine Gluconate (Peridex 0.12% Oral Kit) 15 ml OROPHARYNG BID@0800, 2000 [facility] Famotidine (Pepcid) 20 mg NG/OG BID EDUARDO Haloperidol Lactate (Haldol Lactate Liq) 5 mg PO TID EDUARDO Sodium Chloride (Ns Inj) 1,000 mls @ 125 mls/hr IV.CONT .Q8H EDUARDO Last Admin: 06/24/18 08:15 Dose: 125 mls/hr Nicardipine HCl 25 mg/ Sodium (Chloride) 250 mls @ 50 mls/hr IV.CONT TITRATE PRN; Protocol PRN Reason: Per Protocol Propofol (Diprivan 1000 Mg/100 Ml Inj) 1,000 mg in 100 mls @ 2.585 mls/hr IV.CONT TITRATE PRN; Protocol PRN Reason: Per Protocol Last Titration: 06/24/18 11:30 Dose: 15 mcg/kg/min, 7.76 mls/hr Levetiracetam (Keppra 1000 Mg/100 Ml Premix) 100 mls @ 400 mls/hr IV.SIG Q12H EDUARDO Valproate Sodium 500 mg/ (Sodium Chloride) 105 mls @ 105 mls/hr IV.SIG Q8HR [facility] Miscellaneous Medication () 1 each OROPHARYNG 0000,0400,1200,1600 EDUARDO Quetiapine Fumarate (Seroquel) 25 mg PO BID EDUARDO Quetiapine Fumarate (Seroquel) 100 mg PO HS EDUARDO Sodium Chloride (Ns Flush) 2 ml IV.FLUSH PRN PRN PRN Reason: FLUSH AFTER USING IV ACCESS Last Admin: 06/24/18 08:15 Dose: 2 ml Thiamine HCl (Vitamin B1) 100 mg PO DAILY [facility] Allergies Allergy/AdvReac Type Severity Reaction Status Date / Time strawberry Allergy Unknown Swelling Verified 06/24/18 08:08 Home Medications Medication Instructions Recorded Confirmed Type acetaminophen [Tylenol] 325 mg PO Q4-6H PRN 06/22/18 06/24/18 History divalproex [Depakote] 500 mg PO TID 06/22/18 06/24/18 History fentanyl 1 patch TRANSDERMAL Q72H 06/22/18 06/24/18 History levetiracetam [Keppra] 1,000 mg PO BID 06/22/18 06/24/18 History quetiapine [Seroquel] 25 mg PO BID 06/22/18 06/24/18 History quetiapine [Seroquel] 100 mg PO HS 06/22/18 06/24/18 History amlodipine [Norvasc] 10 mg PO DAILY 06/24/18 06/24/18 History apixaban [Eliquis] 2.5 mg PO BID 06/24/18 06/24/18 History haloperidol lactate 5 mg PO TID 06/24/18 06/24/18 History thiamine HCl (vitamin B1) [Vitamin 100 mg PO DAILY 06/24/18 06/24/18 History B-1] Results - Labs CBC & Chem 7: 06/24/18 08:05 06/24/18 08:05 Labs: Short CBC 06/24/18 Range/Units 08:05 WBC 6.4 (4.0-11.0) th/mm3 Hgb 11.5 L (13.0-17.0) gm/dL Hct 33.7 L (39.0-51.0) % Plt Count 141 L (150-450) th/mm3 BMP 06/24/18 08:05 Sodium 144 Potassium 4.0 Chloride 110 H Carbon Dioxide 27.4 BUN 18 Creatinine 0.95 Calcium 8.6 Liver Function 06/24/18 Range/Units 08:05 Total Bilirubin 0.5 (0.2-1.0) mg/dL AST 24 (15-37) U/L ALT 22 (12-78) U/L Alkaline Phosphatase 81 (45-117) U/L Albumin 3.0 L (3.4-5.0) g/dL Urine 06/24/18 Range/Units 08:20 Urine Color Yellow (Yellw/Straw) Urine Clarity Hazy H (Clear) Urine pH 5.0 (5.0-8.5) Ur Specific [place] 1.021 (1.002-1.035) Urine Protein 30 H (Neg-Trace) mg/dL Urine Glucose (UA) Negative (Negative) mg/dL - Imaging Impressions Chest X-Ray 06/24/18 08:00 CONCLUSION: No acute cardiopulmonary disease. Head CT 06/24/18 08:00 CONCLUSION: 1. Acute intraparenchymal hemorrhage involving the right frontal lobe, right temporal lobe, and acute subdural hemorrhage involving the right frontal lobe and interhemispheric fissure. There is no mass effect. 2. Multiple areas of encephalomalacia are stable. . Chest X-Ray 06/24/18 09:42 CONCLUSION: 1. No endotracheal tube observed on this projection. 2. Clear lungs. Shoulder X-Ray 06/24/18 09:42 CONCLUSION: Acute nondisplaced humeral neck fracture. Exam Vital signs: Vital Signs 06/24/18 08:01 06/24/18 08:16 06/24/18 08:20 Temperature 99.6 F Pulse Rate 74 78 Respiratory Rate 15 18 Blood Pressure 106/62 111/67 Pulse Oximetry 96 96 98 06/24/18 09:00 06/24/18 09:24 06/24/18 09:46 Temperature Pulse Rate 87 97 H 89 Respiratory Rate 18 14 26 H Blood Pressure 187/99 H 133/78 166/97 H Pulse Oximetry 100 98 100 06/24/18 09:54 06/24/18 10:00 06/24/18 10:10 Temperature Pulse Rate 95 H 100 H 102 H Respiratory Rate 18 16 18 Blood Pressure 151/84 H 162/93 H 158/74 H Pulse Oximetry 100 100 100 06/24/18 10:28 06/24/18 11:00 Temperature Pulse Rate 76 Respiratory Rate 16 16 Blood Pressure 114/73 Pulse Oximetry 100 100 Intake & Output 06/23/18 06/24/18 06/24/18 18:59 06:59 18:59 Intake Total 100 / 100 Balance 100 / 100 Weight 86.183 kg Intake: IV 100 / 100 Keppra 1000 mg/100 mL Premix 100 / 100 100 ML @ 400 mls/hr IV.SIG ONCE ONE Rx#:[id number] Narrative: HEENT/ Neuro: Sedated, orally intubated, Pallor present, no icterus, tongue/ mucosa moist. Pupils 3 mm bilaterally reactive Neck: No JVD Chest/Pulm: on mech vent, good air entry bilaterally, no wheezing or crackles CVS: S1-S2 regular, no murmur GI/abdomen: soft, nontender, bowel sounds sluggish Extremities: warm bilaterally, no edema. Caprini VTE Risk Assessment Caprini VTE Risk Assessment: Moderate/High Risk (score >= 2) VTE Pharmacological Exception Reason: Intracranial lesions Caprini Risk Assessment Model: Point Value = 1 Point Value = 2 Point Value = 3 Point Value = 5 Age 41-60 Minor surgery BMI > 25 kg/m2 Swollen legs Varicose veins or History of unexplained or recurrent spontaneous Oral contraceptives or hormone replacement Sepsis (< 1 month) Serious lung disease, including pneumonia (< 1 month) Abnormal pulmonary function Acute myocardial infarction Congestive heart failure (< 1 month) History of inflammatory bowel disease Medical patient at bed rest Age 61-74 Arthroscopic surgery Major open surgery (> 45 min) Laparoscopic surgery (> 45 min) Malignancy Confined to bed (> 72 hours) Immobilizing plaster cast Central venous access Age >= 75 History of VTE Family history of VTE Factor V Leiden Prothrombin [id number] Lupus anticoagulant Anticardiolipin antibodies Elevated serum homocysteine Heparin-induced thrombocytopenia Other congenital or acquired thrombophilia Stroke (< 1 month) Elective arthroplasty Hip, pelvis, or leg fracture Acute spinal cord injury (< 1 month) Prophylaxis Regimen: Total Risk Factor Score Risk Level Prophylaxis Regimen 0-1 Low Early ambulation 2 Moderate Order ONE of the following: *Sequential Compression Device (SCD) *Heparin 5000 units SQ BID 3-4 Higher Order ONE of the following medications: *Heparin 5000 units SQ TID *Enoxaparin/Lovenox 40 mg SQ daily (WT < 150 kg, CrCl > 30 mL/min) *Enoxaparin/Lovenox 30 mg SQ daily (WT < 150 kg, CrCl > 10-29 mL/min) *Enoxaparin/Lovenox 30 mg SQ BID (WT < 150 kg, CrCl > 30 mL/min) AND/OR *Sequential Compression Device (SCD) 5 or more Highest Order ONE of the following medications: *Heparin 5000 units SQ TID (Preferred with Epidurals) *Enoxaparin/Lovenox 40 mg SQ daily (WT < 150 kg, CrCl > 30 mL/min) *Enoxaparin/Lovenox 30 mg SQ daily (WT < 150 kg, CrCl > 10-29 mL/min) *Enoxaparin/Lovenox 30 mg SQ BID (WT < 150 kg, CrCl > 30 mL/min) AND *Sequential Compression Device (SCD) Assessment and Plan - Assessment and Plan Plan: 67-year-old male with: Status epilepticus ICH/SDH Acute respiratory failure on mechanical ventilation Left humerus fracture History of dementia History of stroke Hypertension Plan: Neuro: Sedation with propofol. Keppra 1 g IV every 12 hourly. Valproate 500 mg IV every 8 hourly switched from p.o. dose at home. Check valproate level. Stat EEG. Neurology consult. Neurosurgery following for ICH, discussed with Dr. Jones - planning ventriculostomy. Cardiovascular: IV hydration, watch for hypotension. Hold antihypertensives at this time. Pulmonary: Continue mechanical ventilation, vent bundle, bronchodilators as needed. Patient will be kept intubated with no sedation vacation to seizures controlled. GI/liver: N.p.o. for now. Start tube feeds tomorrow. Renal/: IV hydration, strict intake, monitor and replete elect lites, follow BUN and creatinine. MSK: Orthopedics consult for left humerus fracture. ID: No indication for antibiotics at this time. Watch for sepsis. Endocrine: SSI for glycemic control if needed Heme: Follow CBC. Received K Centra to reverse Eliquis in the ER. Prophylaxis: Pepcid/SCDs. Discussed with Dr. Jones. Condition critical Time spent on critical care excluding procedures 60 minutes
--- NOTE | 2018-06-24 13:52 | ECG ---
Date Performed: 06/24/2018 Time Performed: 08:11:39 PTAGE: 67 years EKG: Sinus rhythm WITH FIRST DEGREE AV BLOCK ABNORMAL ECG Nonspecific inferior T wave abnormalities Since PREVIOUS TRACING , no significant change noted PREVIOUS TRACIN03/26/17 DOCTOR: Shawnee Monzon Interpretating Date/Time 06/24/2018 13:52:04
[2018-06-24] MEDS: Morphine Inj 4 MG/ML Vial IV.PUSH PRN (14:31)
[2018-06-24] MEDS: Valproate Inj 500 MG in Sodium Chlor 0.9% Inj 100 ML IV.SIG SCH ×2 (14:34→21:43)
--- NOTE | 2018-06-24 17:18 | P.OP ---
Preoperative Diagnosis: INTRACEREBRAL HEMORRHAGE Postoperative Diagnosis: INTRACEREBRAL HEMORRHAGE Date of procedure: 06/24/18 Procedure: Right frontal [place] hole with placement of a ventriculostomy catheter Anesthesia: local Surgeon: Sal Jones MD Director Of Cath Lab: geeta Pathology: other (csf) Operation and Findings: INDICATIONS FOR THE PROCEDURE MR DIAZ is a 67 year old adult male who was brought to [facility] with traumatic brain injury and intracerebral hemorrhage He was minimally responsive and seazing. CT of the brain showed a right frontal intracerebral hematoma with mass effect Placement of ventriculostomy was indicated as recommended by the [employer] [place] [employer] DETAILS OF THE SURGICAL PROCEDURE The right frontal area was shaved, prepped and draped in the usual sterile fashion. An entry point was selected 90 millimeters posterior to the supraorbital rim and 25 millimeters from the midline. The area was infiltrated with 1% lidocaine with epinephrine. A skin incision was made with a #15 blade down to the level of the periosteum. Using a twist drill, a nuno hole was made. The dura was carefully opened with a brain needle and a ventriculostomy catheter was advanced into the ventricular system. At a depth of 60 millimeters, cerebrospinal fluid was obtained. Opening pressure was 5 centimeters of water. A specimen of cerebrospinal fluid was collected and sent to the lab for analysis of the glucose, protein, cell count and cultures. The catheter was then tunneled under the galea and externalized through a separate stab incision. The incision was closed with 3-0 nylon in a single plane. The patient tolerated the procedure well. COMPLICATIONS There were no intraoperative complications. BLOOD LOSS Blood loss was minimal.
--- NOTE | 2018-06-24 18:03 | MG ---
cc: Jose Freed MD EE REFERRING PHYSICIAN: Dr. Freed. INDICATION: EEG, on Diprivan. Seizures all day. Fell Saturday. Schizophrenia. Alzheimer's. Keppra. FINDINGS: Recording shows diffuse alpha and beta rhythms recording overall is synchronous and symmetric. No hemisphere asymmetries are noted. No epileptiform or seizure activity is seen. Some right arm shaking is seen, which does not correlate with any seizure activity, just some muscle artifact over the right frontotemporal head region. Certainly, no seizure activity over the left hemisphere that would account for the right arm shaking. Photic stimulation and hyperventilation were not performed. IMPRESSION: The right arm shaking is not an electroencephalographic seizure. It happens frequently throughout this recording. Otherwise, this was a normal electroencephalogram. Jose Freed MD DJM/ll , 05:29 PM , 05:33 PM
--- NOTE | 2018-06-24 18:13 | P.CONNEU ---
History of Present Illness Service: Neurology Primary Care Provider: UNKNOWN Chief Complaint: seizure History of Present Illness: 67-year-old male admitted for recurrent seizures, altered mental status. Had a CT brain scan which demonstrated intracranial hemorrhage. Seen by neurosurgery and critical care. Patient is intubated in the ER will be transferred to the intensive care unit. He had a recent increase in his Keppra dose. Patient unable to give any history. There is a caregiver at bedside to see the patient is a patient has underlying dementia and lives in a facility. Review of Systems unobtainable due to endotracheal tube, unobtainable due to mental status PMFSH - History History Provided By: Medical Record, Curve Saw Operator / EMT - Medical History Medical History: Medical History (Last Reviewed 06/24/18 @ 18:36 by Eulalio Milan MD) Alzheimer disease Anxiety Atrial fibrillation Bipolar disorder GERD (gastroesophageal reflux disease) History of DVT (deep vein thrombosis) History of gastric ulcer Hypercholesterolemia Left scapula fracture Onset Date: ~2009 Schizophrenia Seizure Seizure disorder Traumatic brain injury Onset Date: ~2002 Acute insomnia Constipation Dementia Depression Hypertension Stroke - Surgical History Surgical History: Surgical History (Last Reviewed 06/24/18 @ 18:36 by Eulalio Milan MD) History of craniotomy Onset Date: ~2002 - Family History Family History: Family History (Last Reviewed 06/24/18 @ 18:36 by Eulalio Milan MD) Father Liver cirrhosis Mother Cancer - Tobacco History Second Hand Smoke Exposure: No Smoking Status: Unknown if ever smoked - Alcohol History How Often Do You Have a Drink Containing Alcohol: Never (Patient began drinking after high school; previously drinking up to 6 drinks daily) - Substance Use History Substance History: Unable to Obtain - Travel History Recent Travel in the [place] Within the Last 8 Weeks: No Recent Travel Out of the Country Within the Last 8 Weeks: No - Immunization History Tetanus Immunization: Unable to Assess Medications and Allergies Active Medications: Active Medications Acetaminophen (Tylenol) 650 mg PO Q6H PRN PRN Reason: PAIN 1-10 AND/OR FEVER >101F Albuterol (Duoneb Neb (Prn)) 1 ampul NEB Q4HR NEB PRN PRN Reason: SHORTNESS OF BREATH Albuterol (Duoneb Neb (Eduardo)) 1 ampul NEB Q6HR NEB EDUARDO Last Admin: 06/24/18 16:57 Dose: 1 ampul Chlorhexidine Gluconate (Chlorhexidine 2% Cloth) 3 pack TOPICAL DAILY@0400 EDUARDO Stop: 06/30/18 03:59 Chlorhexidine Gluconate (Chlorhexidine 2% Cloth) 3 pack TOPICAL DAILY@0400 PRN PRN Reason: Extra cloth needed Stop: 06/30/18 03:59 Chlorhexidine Gluconate (Peridex 0.12% Oral Kit) 15 ml OROPHARYNG BID@0800, 2000 [facility] Famotidine (Pepcid) 20 mg NG/OG BID [facility] Haloperidol Lactate (Haldol Lactate Liq) 5 mg PO TID EDUAROD Sodium Chloride (Ns Inj) 1,000 mls @ 125 mls/hr IV.CONT .Q8H EDUARDO Last Admin: 06/24/18 13:48 Dose: 125 mls/hr Nicardipine HCl 25 mg/ Sodium (Chloride) 250 mls @ 50 mls/hr IV.CONT TITRATE PRN; Protocol PRN Reason: Per Protocol Propofol (Diprivan 1000 Mg/100 Ml Inj) 1,000 mg in 100 mls @ 2.585 mls/hr IV.CONT TITRATE PRN; Protocol PRN Reason: Per Protocol Last Titration: 06/24/18 12:00 Dose: 30 mcg/kg/min, 15.51 mls/hr Levetiracetam (Keppra 1000 Mg/100 Ml Premix) 100 mls @ 400 mls/hr IV.SIG Q12H [facility] Valproate Sodium 500 mg/ (Sodium Chloride) 105 mls @ 105 mls/hr IV.SIG Q8HR EDUARDO Last Admin: 06/24/18 14:34 Dose: 105 mls/hr Miscellaneous Medication () 1 each OROPHARYNG 0000,0400,1200,1600 [facility] Morphine Sulfate (Morphine Inj) 4 mg IV.PUSH Q4H PRN PRN Reason: PAIN SCALE 6 TO 10 IF NOT RUI Last Admin: 06/24/18 14:31 Dose: 4 mg Morphine Sulfate (Morphine Inj) 2 mg IV.PUSH Q4H PRN PRN Reason: PAIN 1 TO 5 IF NOT RUI PO Quetiapine Fumarate (Seroquel) 25 mg PO BID [facility] Quetiapine Fumarate (Seroquel) 100 mg PO HS [facility] Sodium Chloride (Ns Flush) 2 ml IV.FLUSH PRN PRN PRN Reason: FLUSH AFTER USING IV ACCESS Last Admin: 06/24/18 08:15 Dose: 2 ml Thiamine HCl (Vitamin B1) 100 mg PO DAILY EDUARDO Allergies Allergy/AdvReac Type Severity Reaction Status Date / Time strawberry Allergy Unknown Swelling Verified 06/24/18 08:08 Home Medications Medication Instructions Recorded Confirmed Type acetaminophen [Tylenol] 325 mg PO Q4-6H PRN 06/22/18 06/24/18 History divalproex [Depakote] 500 mg PO TID 06/22/18 06/24/18 History fentanyl 1 patch TRANSDERMAL Q72H 06/22/18 06/24/18 History levetiracetam [Keppra] 1,000 mg PO BID 06/22/18 06/24/18 History quetiapine [Seroquel] 25 mg PO BID 06/22/18 06/24/18 History quetiapine [Seroquel] 100 mg PO HS 06/22/18 06/24/18 History amlodipine [Norvasc] 10 mg PO DAILY 06/24/18 06/24/18 History apixaban [Eliquis] 2.5 mg PO BID 06/24/18 06/24/18 History haloperidol lactate 5 mg PO TID 06/24/18 06/24/18 History thiamine HCl (vitamin B1) [Vitamin 100 mg PO DAILY 06/24/18 06/24/18 History B-1] Exam Vital signs: Vital Signs 06/24/18 08:01 06/24/18 08:16 06/24/18 08:20 Temperature 99.6 F Pulse Rate 74 78 Respiratory Rate 15 18 Blood Pressure 106/62 111/67 Pulse Oximetry 96 96 98 06/24/18 09:00 06/24/18 09:24 06/24/18 09:46 Temperature Pulse Rate 87 97 H 89 Respiratory Rate 18 14 26 H Blood Pressure 187/99 H 133/78 166/97 H Pulse Oximetry 100 98 100 06/24/18 09:54 06/24/18 10:00 06/24/18 10:10 Temperature Pulse Rate 95 H 100 H 102 H Respiratory Rate 18 16 18 Blood Pressure 151/84 H 162/93 H 158/74 H Pulse Oximetry 100 100 100 06/24/18 10:28 06/24/18 11:00 06/24/18 12:00 Temperature Pulse Rate 76 80 Respiratory Rate 16 16 16 Blood Pressure 114/73 134/70 Pulse Oximetry 100 100 100 06/24/18 16:52 06/24/18 16:56 Temperature Pulse Rate 73 Respiratory Rate 20 19 Blood Pressure Pulse Oximetry 100 Intake & Output 06/23/18 06/24/18 06/24/18 18:59 06:59 18:59 Intake Total 1100 / 1100 Balance 1100 / 1100 Weight 86.183 kg Intake: IV 1100 / 1100 NS Inj 1,000 ML @ 125 mls/hr IV 1000 / 1000 .CONT .Q8H EDUARDO Rx#:[id number] Keppra 1000 mg/100 mL Premix 100 / 100 100 ML @ 400 mls/hr IV.SIG ONCE ONE Rx#:[id number] Narrative: GENERAL: in NAD, SKIN: Warm and dry. HEAD: Atraumatic. Normocephalic. EYES: Pupils equal and round. No scleral icterus. ENT: No nasal bleeding or discharge. NECK: Trachea midline. No JVD. CARDIOVASCULAR: Regular rate and rhythm. RESPIRATORY: Intubated. NEUROLOGICAL: Intubated no involuntary movements, state not following no gaze deviation no involuntary movements PSYCHIATRIC: Intubated Results - Labs CBC & Chem 7: 06/24/18 08:05 06/24/18 08:05 Labs: Laboratory Results - last 24 hr 06/24/18 06/24/18 06/24/18 08:05 08:05 08:05 WBC 6.4 RBC 3.58 L Hgb 11.5 L Hct 33.7 L MCV 94.2 MCH 32.2 MCHC 34.2 RDW 12.7 Plt Count 141 L MPV 6.9 L Neut % (Auto) 81.3 H Lymph % (Auto) 9.0 [place] % (Auto) 9.3 H Eos % (Auto) 0.1 Baso % (Auto) 0.3 Neut # (Auto) 5.2 Lymph # (Auto) 0.6 L [place] # (Auto) 0.6 Eos # (Auto) 0.0 Baso # (Auto) 0.0 WBC Differential . Differential Comment Auto diff final PT 11.2 INR 1.1 APTT 28.9 Puncture Site Patient Temperature O2 Saturation ABG pH ABG pCO2 ABG pO2 ABG HCO3 ABG O2 Content ABG Base Excess ABG Methemoglobin Rell Test Hemoglobin Carboxyhemoglobin O2 Delivery Device Vent Setting Inspired O2 Critical Value Sodium 144 Potassium 4.0 Chloride 110 H Carbon Dioxide 27.4 Anion Gap 7 BUN 18 Creatinine 0.95 Estimated GFR 79 L Random Glucose 108 H Calcium 8.6 Magnesium 1.7 Total Bilirubin 0.5 AST 24 ALT 22 Alkaline Phosphatase 81 Total Protein 6.5 Albumin 3.0 L Urine Color Urine Clarity Urine pH Ur Specific [place] Urine Protein Urine Glucose (UA) Urine Ketones Urine Occult Blood Urine Nitrate Urine Bilirubin Urine Urobilinogen Ur Leukocyte Esterase Urine RBC Urine WBC Ur Squamous Epith Cells Urine Bacteria Hyaline Casts Urine Mucus Ur Microscopic Review 06/24/18 06/24/18 08:20 10:52 WBC RBC Hgb Hct MCV MCH MCHC RDW Plt Count MPV Neut % (Auto) Lymph % (Auto) [place] % (Auto) Eos % (Auto) Baso % (Auto) Neut # (Auto) Lymph # (Auto) [place] # (Auto) Eos # (Auto) Baso # (Auto) WBC Differential Differential Comment PT INR APTT Puncture Site Left radial Patient Temperature 98.6 O2 Saturation 98 ABG pH 7.43 H ABG pCO2 36 L ABG pO2 155 H ABG HCO3 23 ABG O2 Content 16.4 ABG Base Excess -0.6 ABG Methemoglobin 0.6 Rell Test Present Hemoglobin 11.7 L Carboxyhemoglobin 1.0 O2 Delivery Device Ventilator Vent Setting 550/16/+5/1.0 Inspired O2 40 Critical Value No Sodium Potassium Chloride Carbon Dioxide Anion Gap BUN Creatinine Estimated GFR Random Glucose Calcium Magnesium Total Bilirubin AST ALT Alkaline Phosphatase Total Protein Albumin Urine Color Yellow Urine Clarity Hazy H Urine pH 5.0 Ur Specific [place] 1.021 Urine Protein 30 H Urine Glucose (UA) Negative Urine Ketones 20 Urine Occult Blood Small H Urine Nitrate Negative Urine Bilirubin Negative Urine Urobilinogen Less than 2 Ur Leukocyte Esterase Negative Urine RBC 3 Urine WBC 1 Ur Squamous Epith Cells <1 Urine Bacteria Rare H Hyaline Casts 4 Urine Mucus Few H Ur Microscopic Review Not Reportable - Imaging Impressions Chest X-Ray 06/24/18 08:00 CONCLUSION: No acute cardiopulmonary disease. Head CT 06/24/18 08:00 CONCLUSION: 1. Acute intraparenchymal hemorrhage involving the right frontal lobe, right temporal lobe, and acute subdural hemorrhage involving the right frontal lobe and interhemispheric fissure. There is no mass effect. 2. Multiple areas of encephalomalacia are stable. . Chest X-Ray 06/24/18 09:42 CONCLUSION: 1. No endotracheal tube observed on this projection. 2. Clear lungs. Shoulder X-Ray 06/24/18 09:42 CONCLUSION: Acute nondisplaced humeral neck fracture. Review/Management - Diagnosis (1) Encephalomalacia Code(s): G93.89 - Other specified disorders of brain Status: Acute Current Visit: Yes (2) Dementia Code(s): F03.90 - Unspecified dementia without behavioral disturbance Status: Acute Current Visit: Yes (3) Intractable seizure disorder Code(s): G40.919 - Epilepsy, unspecified, intractable, without status epilepticus Status: Acute Current Visit: Yes (4) ICH (intracerebral hemorrhage) Code(s): I61.9 - Nontraumatic intracerebral hemorrhage, unspecified Status: Acute Current Visit: Yes - Review/Management Plan: Intracranial hemorrhage. 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 Seizures Probable underlying vascular dementia Recommendation Follow-up EEG IV Celebrex with Keppra Critical care neurosurgical management Blood pressure control (4) ICH (intracerebral hemorrhage) Qualifiers: Intracerebral hemorrhage etiology: nontraumatic Cerebral hemorrhage location : multiple localized areas of cerebrum Laterality: right Qualified Code(s): I61.6 - Nontraumatic intracerebral hemorrhage, multiple localized
--- NOTE | 2018-06-24 18:43 | P.CONOP ---
[facility] Orthopedics Consult Note - HPI Consult date: 06/24/18 Chief complaint: ICH, Left Humeral Fracture, Status Epilepticus Narrative: 67-year-old male with a medical history significant for dementia, seizure disorder, previous stroke, hypertension who was brought to the ER from senior care after he had multiple seizures this morning. I was able to obtain some history from some associates at the bedside who help take care of him at his long term. As far as the shoulder is concerned he does have quite an extensive history of left shoulder problems which could be related to stroke. Typically the patient holds his arm down by his side and even behind his back with his hand flexed in a "waiters tip" type of position. This may have been from previous stroke. Typically the left shoulder does not have very much function. He did have a couple falls recently and x-rays were taken which showed that he had a proximal humerus fracture. The patient is currently intubated. He cannot provide medical history. He was found to have a frontal intraparenchymal bleed and subdural hemorrhage Family history is unobtainable at this time because the patient is intubated. Review of Systems unobtainable due to endotracheal tube PMFSH - History History Provided By: Medical Record, Cook Pie / EMT - Medical History Medical History: Medical History (Last Reviewed 06/24/18 @ 18:36 by Eulalio Milan MD) Alzheimer disease Anxiety Atrial fibrillation Bipolar disorder GERD (gastroesophageal reflux disease) History of DVT (deep vein thrombosis) History of gastric ulcer Hypercholesterolemia Left scapula fracture Onset Date: ~2009 Schizophrenia Seizure Seizure disorder Traumatic brain injury Onset Date: ~2002 Acute insomnia Constipation Dementia Depression Hypertension Stroke - Surgical History Surgical History: Surgical History (Last Reviewed 06/24/18 @ 18:36 by Eulalio Milan MD) History of craniotomy Onset Date: ~2002 - Family History Family History: Family History (Last Reviewed 06/24/18 @ 18:36 by Eulalio Milan MD) Father Liver cirrhosis Mother Cancer - Tobacco History Second Hand Smoke Exposure: No Smoking Status: Unknown if ever smoked - Alcohol History How Often Do You Have a Drink Containing Alcohol: Never (Patient began drinking after high school; previously drinking up to 6 drinks daily) - Substance Use History Substance History: Unable to Obtain - Travel History Recent Travel in the [place] Within the Last 8 Weeks: No Recent Travel Out of the Country Within the Last 8 Weeks: No - Immunization History Tetanus Immunization: Unable to Assess Medications and Allergies Active Medications: Active Medications Acetaminophen (Tylenol) 650 mg PO Q6H PRN PRN Reason: PAIN 1-10 AND/OR FEVER >101F Albuterol (Duoneb Neb (Prn)) 1 ampul NEB Q4HR NEB PRN PRN Reason: SHORTNESS OF BREATH Albuterol (Duoneb Neb (Eduardo)) 1 ampul NEB Q6HR NEB EDUARDO Last Admin: 06/24/18 16:57 Dose: 1 ampul Chlorhexidine Gluconate (Chlorhexidine 2% Cloth) 3 pack TOPICAL DAILY@0400 EDUARDO Stop: 06/30/18 03:59 Chlorhexidine Gluconate (Chlorhexidine 2% Cloth) 3 pack TOPICAL DAILY@0400 PRN PRN Reason: Extra cloth needed Stop: 06/30/18 03:59 Chlorhexidine Gluconate (Peridex 0.12% Oral Kit) 15 ml OROPHARYNG BID@0800, 2000 [facility] Famotidine (Pepcid) 20 mg NG/OG BID [facility] Haloperidol Lactate (Haldol Lactate Liq) 5 mg PO TID EDUARDO Sodium Chloride (Ns Inj) 1,000 mls @ 125 mls/hr IV.CONT .Q8H [facility] Last Admin: 06/24/18 13:48 Dose: 125 mls/hr Nicardipine HCl 25 mg/ Sodium (Chloride) 250 mls @ 50 mls/hr IV.CONT TITRATE PRN; Protocol PRN Reason: Per Protocol Propofol (Diprivan 1000 Mg/100 Ml Inj) 1,000 mg in 100 mls @ 2.585 mls/hr IV.CONT TITRATE PRN; Protocol PRN Reason: Per Protocol Last Titration: 06/24/18 12:00 Dose: 30 mcg/kg/min, 15.51 mls/hr Levetiracetam (Keppra 1000 Mg/100 Ml Premix) 100 mls @ 400 mls/hr IV.SIG Q12H [facility] Valproate Sodium 500 mg/ (Sodium Chloride) 105 mls @ 105 mls/hr IV.SIG Q8HR [facility] Last Admin: 06/24/18 14:34 Dose: 105 mls/hr Miscellaneous Medication () 1 each OROPHARYNG 0000,0400,1200,1600 [facility] Morphine Sulfate (Morphine Inj) 4 mg IV.PUSH Q4H PRN PRN Reason: PAIN SCALE 6 TO 10 IF NOT RUI Last Admin: 06/24/18 14:31 Dose: 4 mg Morphine Sulfate (Morphine Inj) 2 mg IV.PUSH Q4H PRN PRN Reason: PAIN 1 TO 5 IF NOT RUI PO Quetiapine Fumarate (Seroquel) 25 mg PO BID EDUARDO Quetiapine Fumarate (Seroquel) 100 mg PO HS [facility] Sodium Chloride (Ns Flush) 2 ml IV.FLUSH PRN PRN PRN Reason: FLUSH AFTER USING IV ACCESS Last Admin: 06/24/18 08:15 Dose: 2 ml Thiamine HCl (Vitamin B1) 100 mg PO DAILY [facility] Allergies Allergy/AdvReac Type Severity Reaction Status Date / Time strawberry Allergy Unknown Swelling Verified 06/24/18 08:08 Home Medications Medication Instructions Recorded Confirmed Type acetaminophen [Tylenol] 325 mg PO Q4-6H PRN 06/22/18 06/24/18 History divalproex [Depakote] 500 mg PO TID 06/22/18 06/24/18 History fentanyl 1 patch TRANSDERMAL Q72H 06/22/18 06/24/18 History levetiracetam [Keppra] 1,000 mg PO BID 06/22/18 06/24/18 History quetiapine [Seroquel] 25 mg PO BID 06/22/18 06/24/18 History quetiapine [Seroquel] 100 mg PO HS 06/22/18 06/24/18 History amlodipine [Norvasc] 10 mg PO DAILY 06/24/18 06/24/18 History apixaban [Eliquis] 2.5 mg PO BID 06/24/18 06/24/18 History haloperidol lactate 5 mg PO TID 06/24/18 06/24/18 History thiamine HCl (vitamin B1) [Vitamin 100 mg PO DAILY 06/24/18 06/24/18 History B-1] Exam Vital signs: Vital Signs 06/24/18 08:01 06/24/18 08:16 06/24/18 08:20 Temperature 99.6 F Pulse Rate 74 78 Respiratory Rate 15 18 Blood Pressure 106/62 111/67 Pulse Oximetry 96 96 98 06/24/18 09:00 06/24/18 09:24 06/24/18 09:46 Temperature Pulse Rate 87 97 H 89 Respiratory Rate 18 14 26 H Blood Pressure 187/99 H 133/78 166/97 H Pulse Oximetry 100 98 100 06/24/18 09:54 06/24/18 10:00 06/24/18 10:10 Temperature Pulse Rate 95 H 100 H 102 H Respiratory Rate 18 16 18 Blood Pressure 151/84 H 162/93 H 158/74 H Pulse Oximetry 100 100 100 06/24/18 10:28 06/24/18 11:00 06/24/18 12:00 Temperature Pulse Rate 76 80 Respiratory Rate 16 16 16 Blood Pressure 114/73 134/70 Pulse Oximetry 100 100 100 06/24/18 16:52 06/24/18 16:56 Temperature Pulse Rate 73 Respiratory Rate 20 19 Blood Pressure Pulse Oximetry 100 Intake & Output 06/23/18 06/24/18 06/24/18 18:59 06:59 18:59 Intake Total 1100 / 1100 Balance 1100 / 1100 Weight 86.183 kg Intake: IV 1100 / 1100 NS Inj 1,000 ML @ 125 mls/hr IV 1000 / 1000 .CONT .Q8H [facility] Rx#:[id number] Keppra 1000 mg/100 mL Premix 100 / 100 100 ML @ 400 mls/hr IV.SIG ONCE ONE Rx#:[id number] Narrative: CONSTITUTIONAL/GENERAL: Patient is intubated and sedated TUBES/LINES/DRAINS: SKIN: No jaundice, rashes, or lesions. Ecchymoses on upper extremities. No wounds seen about the left shoulder. EYES: Pupils equal and round and reactive. NECK: Trachea midline. Endotracheal tube in place CARDIOVASCULAR: Regular rate and rhythm RESPIRATORY/CHEST: Clear to auscultation. GASTROINTESTINAL: Abdomen soft, non-tender, nondistended. We cannot assess psychiatric. Examination of the left shoulder shows that the shoulder sits in a subluxed position anteriorly. It is reducible back into a fairly anatomic position. There is crepitus with this. I did not find significant instability about proximal humerus at the known fracture site but there does appear to be instability about the glenohumeral joint. This may be chronic in nature. I cannot test strength about the left upper extremity. He does have a 2+ radial pulse on the left arm. Results - Labs Result Diagrams: 06/24/18 08:05 06/24/18 08:05 Labs: Laboratory Results - last 24 hr 06/24/18 06/24/18 06/24/18 08:05 08:05 08:05 WBC 6.4 RBC 3.58 L Hgb 11.5 L Hct 33.7 L MCV 94.2 MCH 32.2 MCHC 34.2 RDW 12.7 Plt Count 141 L MPV 6.9 L Neut % (Auto) 81.3 H Lymph % (Auto) 9.0 [place] % (Auto) 9.3 H Eos % (Auto) 0.1 Baso % (Auto) 0.3 Neut # (Auto) 5.2 Lymph # (Auto) 0.6 L [place] # (Auto) 0.6 Eos # (Auto) 0.0 Baso # (Auto) 0.0 WBC Differential . Differential Comment Auto diff final PT 11.2 INR 1.1 APTT 28.9 Puncture Site Patient Temperature O2 Saturation ABG pH ABG pCO2 ABG pO2 ABG HCO3 ABG O2 Content ABG Base Excess ABG Methemoglobin Rell Test Hemoglobin Carboxyhemoglobin O2 Delivery Device Vent Setting Inspired O2 Critical Value Sodium 144 Potassium 4.0 Chloride 110 H Carbon Dioxide 27.4 Anion Gap 7 BUN 18 Creatinine 0.95 Estimated GFR 79 L Random Glucose 108 H Calcium 8.6 Magnesium 1.7 Total Bilirubin 0.5 AST 24 ALT 22 Alkaline Phosphatase 81 Total Protein 6.5 Albumin 3.0 L Urine Color Urine Clarity Urine pH Ur Specific [place] Urine Protein Urine Glucose (UA) Urine Ketones Urine Occult Blood Urine Nitrate Urine Bilirubin Urine Urobilinogen Ur Leukocyte Esterase Urine RBC Urine WBC Ur Squamous Epith Cells Urine Bacteria Hyaline Casts Urine Mucus Ur Microscopic Review 06/24/18 06/24/18 08:20 10:52 WBC RBC Hgb Hct MCV MCH MCHC RDW Plt Count MPV Neut % (Auto) Lymph % (Auto) [place] % (Auto) Eos % (Auto) Baso % (Auto) Neut # (Auto) Lymph # (Auto) [place] # (Auto) Eos # (Auto) Baso # (Auto) WBC Differential Differential Comment PT INR APTT Puncture Site Left radial Patient Temperature 98.6 O2 Saturation 98 ABG pH 7.43 H ABG pCO2 36 L ABG pO2 155 H ABG HCO3 23 ABG O2 Content 16.4 ABG Base Excess -0.6 ABG Methemoglobin 0.6 Rell Test Present Hemoglobin 11.7 L Carboxyhemoglobin 1.0 O2 Delivery Device Ventilator Vent Setting 550/16/+5/1.0 Inspired O2 40 Critical Value No Sodium Potassium Chloride Carbon Dioxide Anion Gap BUN Creatinine Estimated GFR Random Glucose Calcium Magnesium Total Bilirubin AST ALT Alkaline Phosphatase Total Protein Albumin Urine Color Yellow Urine Clarity Hazy H Urine pH 5.0 Ur Specific [place] 1.021 Urine Protein 30 H Urine Glucose (UA) Negative Urine Ketones 20 Urine Occult Blood Small H Urine Nitrate Negative Urine Bilirubin Negative Urine Urobilinogen Less than 2 Ur Leukocyte Esterase Negative Urine RBC 3 Urine WBC 1 Ur Squamous Epith Cells <1 Urine Bacteria Rare H Hyaline Casts 4 Urine Mucus Few H Ur Microscopic Review Not Reportable - Diagnostic results Imaging: Impressions Chest X-Ray 06/24/18 08:00 CONCLUSION: No acute cardiopulmonary disease. Head CT 06/24/18 08:00 CONCLUSION: 1. Acute intraparenchymal hemorrhage involving the right frontal lobe, right temporal lobe, and acute subdural hemorrhage involving the right frontal lobe and interhemispheric fissure. There is no mass effect. 2. Multiple areas of encephalomalacia are stable. . Chest X-Ray 06/24/18 09:42 CONCLUSION: 1. No endotracheal tube observed on this projection. 2. Clear lungs. Shoulder X-Ray 06/24/18 09:42 CONCLUSION: Acute nondisplaced humeral neck fracture. I have reviewed the images for this radiology study. I agree with the interpretation given by the radiologist. I do not see the dislocation of the shoulder based on the scapular Y view Assessment and Plan - Assessment and Plan 67-year-old male with a medical history significant for dementia, seizure disorder, previous stroke, hypertension with subdural hemorrhage and intraparenchymal bleed. Left shoulder possible chronic instability with arthritis and acute proximal humerus fracture which is nondisplaced. Possible history of previous stroke leading to muscle imbalances of the left upper extremity. I discussed the diagnosis in detail with the 2 attendants who are here from the facility that the patient currently resides. I would recommend nonoperative management for this condition at this time. The sling at this point is not appropriate treatment mechanism. We will need to follow the shoulder along. It would be helpful to clinically follow the patient and see how he does if he returns back to his baseline as far as the shoulder is concerned. I do feel like the instability about the shoulder may potentially be chronic in nature. I do feel that the fracture likely has the ability to heal in good position and not detract from significant function of the left shoulder. The patient should follow-up in the office after his been discharged from the hospital. - Attending Attestation Attending Attestation: A mid level provider in my office, nurse practitioner or PA, may see this patient on a follow up basis and continue to implement the plan including: starting or adjusting medications, injections of muscle, tendons, bursa or joints, cast application, orthotic or brace application, physical therapy, further radiographic studies including X-ray, MRI, CT, ultrasound or bone scan , vascular studies, neurological studies, or other specialist consultations, and proceeding with surgical management as appropriate.
[2018-06-24] MEDS: Oral Hygiene Kit OROPHARYNG SCH (19:45)
[2018-06-24] MEDS: Haloperidol Lactate Oral Conc 10 MG/5 ML UDC PO SCH (19:46)
[2018-06-24] MEDS: levETIRAcetam 1000mg/100mL Inj 100 ML IV.SIG SCH (20:54)
[2018-06-24] MEDS: Chlorhexidine 0.12% Oral Kit 15 ML UDC OROPHARYNG SCH (20:54)
[2018-06-24] MEDS: QUEtiapine 25 MG Tablet PO SCH (21:43)
[2018-06-24] MEDS: QUEtiapine 100 MG Tablet PO SCH (21:43)
[2018-06-24] MEDS: Famotidine 20 MG Tablet NG/OG SCH (21:43)
[2018-06-25] MEDS ORDERED: Sod Chloride 0.9% Inj 1,000 ML IV.SIG SCH (00:30)
[2018-06-25] MEDS: Oral Hygiene Kit OROPHARYNG SCH ×3 (00:41→17:03)
[2018-06-25] MEDS: Sod Chloride 0.9% Inj 1,000 ML IV.CONT SCH ×3 (01:36→14:30)
[2018-06-25] MEDS: Propofol 1000 mg/100 ml Inj 1,000 MG/100 ML BOTTLE IV.CONT PRN ×5 (01:36→23:10)
[2018-06-25] MEDS: Chlorhexidine Gluconate 2% 1 Pack (2 Cloths) TOPICAL SCH (03:04)
[2018-06-25] MEDS ORDERED: Chlorhexidine Gluconate 2% 1 Pack (2 Cloths) TOPICAL PRN (04:00)
[2018-06-25 05:11] LABS: Baso % (Auto) 0.2 % (0.0-2.0); Eos # (Auto) 0.1 th/mm3 (0.0-0.4); Eos % (Auto) 1.7 % (0.0-4.0); Hematocrit 34.6 % (39.0-51.0); Hemoglobin 11.7 gm/dL (13.0-17.0); Lymph # (Auto) 1.4 th/mm3 (1.0-4.8); Lymph % (Auto) 18.2 % (9.0-44.0); Mean Corpuscular HGB Conc 33.8 % (32.0-36.0); Mean Corpuscular Hemoglobin 32.1 pg (27.0-34.0); Mean Platelet Volume 7.1 fL (7.0-11.0); Mono % (Auto) 12.3 % (0.0-8.0); Neut # (Auto) 5.2 th/mm3 (1.8-7.7); Neut % (Auto) 67.6 % (16.0-70.0); Platelet Count 97 th/mm3 (150-450); Red Blood Count 3.64 mil/mm3 (4.50-5.90); Red Cell Distribution Width 13.1 % (11.6-17.2); White Blood Count 7.7 th/mm3 (4.0-11.0)
[2018-06-25 05:35] LABS: Albumin 2.8 g/dL (3.4-5.0); Anion Gap 8 meq/L (5-15); Aspartate Aminotransferase 20 U/L (15-37); Blood Urea Nitrogen 10 mg/dL (7-18); Calcium 8.2 mg/dL (8.5-10.1); Carbon Dioxide 26.2 meq/L (21.0-32.0); Chloride 112 meq/L (98-107); Glomerular Filtration Rate Greater Than 89 mL/min (>89); Glucose,Random 85 mg/dL (74-106); Potassium 3.3 meq/L (3.5-5.1); Sodium 146 meq/L (136-145)
[2018-06-25 05:36] LABS: Alanine Aminotransferase 18 U/L (12-78)
[2018-06-25 05:39] LABS: Alkaline Phosphatase 75 U/L (45-117); Total Protein 6.1 g/dL (6.4-8.2)
[2018-06-25] MEDS: Valproate Inj 500 MG in Sodium Chlor 0.9% Inj 100 ML IV.SIG SCH (05:49)
[2018-06-25 07:10] LABS: Platelet Morphology Normal (Normal)
[2018-06-25] MEDS ORDERED: Potassium Chlor 40 mEq Premix 40 MEQ/100 ML PIGGYBACK IV.SIG ONE (07:45)
[2018-06-25] MEDS: levETIRAcetam 1000mg/100mL Inj 100 ML IV.SIG SCH ×2 (08:52→20:27)
[2018-06-25] MEDS: Potassium Chlor 20 mEq Premix 20 MEQ/100 ML PIGGYBACK IV.SIG SCH ×2 (08:52→10:52)
[2018-06-25] MEDS: Chlorhexidine 0.12% Oral Kit 15 ML UDC OROPHARYNG SCH ×2 (08:53→20:27)
[2018-06-25] MEDS: Haloperidol Lactate Oral Conc 10 MG/5 ML UDC PO SCH ×3 (08:53→17:03)
[2018-06-25] MEDS: Famotidine 20 MG Tablet NG/OG SCH ×2 (08:53→21:27)
[2018-06-25] MEDS: QUEtiapine 25 MG Tablet PO SCH ×2 (08:53→21:27)
--- NOTE | 2018-06-25 09:12 | P.PNNEU ---
Subjective Subjective Comments: no acute events Active Medications: Active Medications Acetaminophen (Tylenol) 650 mg PO Q6H PRN PRN Reason: PAIN 1-10 AND/OR FEVER >101F Albuterol (Duoneb Neb (Prn)) 1 ampul NEB Q4HR NEB PRN PRN Reason: SHORTNESS OF BREATH Albuterol (Duoneb Neb (Eduardo)) 1 ampul NEB Q6HR NEB [facility] Last Admin: 06/25/18 08:32 Dose: 1 ampul Chlorhexidine Gluconate (Chlorhexidine 2% Cloth) 3 pack TOPICAL DAILY@0400 [facility] Stop: 06/30/18 03:59 Last Admin: 06/25/18 03:04 Dose: 3 pack Chlorhexidine Gluconate (Chlorhexidine 2% Cloth) 3 pack TOPICAL DAILY@0400 PRN PRN Reason: Extra cloth needed Stop: 06/30/18 03:59 Chlorhexidine Gluconate (Peridex 0.12% Oral Kit) 15 ml OROPHARYNG BID@0800, 2000 [facility] Last Admin: 06/25/18 08:53 Dose: 15 ml Famotidine (Pepcid) 20 mg NG/OG BID [facility] Last Admin: 06/25/18 08:53 Dose: 20 mg Haloperidol Lactate (Haldol Lactate Liq) 5 mg PO TID [facility] Last Admin: 06/25/18 08:53 Dose: 5 mg Sodium Chloride (Ns Inj) 1,000 mls @ 125 mls/hr IV.CONT .Q8H [facility] Last Admin: 06/25/18 08:53 Dose: Not Given Nicardipine HCl 25 mg/ Sodium (Chloride) 250 mls @ 50 mls/hr IV.CONT TITRATE PRN; Protocol PRN Reason: Per Protocol Propofol (Diprivan 1000 Mg/100 Ml Inj) 1,000 mg in 100 mls @ 2.585 mls/hr IV.CONT TITRATE PRN; Protocol PRN Reason: Per Protocol Last Admin: 06/25/18 05:49 Dose: 35 mcg/kg/min, 18.1 mls/hr Levetiracetam (Keppra 1000 Mg/100 Ml Premix) 100 mls @ 400 mls/hr IV.SIG Q12H [facility] Last Admin: 06/25/18 08:52 Dose: 400 mls/hr Valproate Sodium 500 mg/ (Sodium Chloride) 105 mls @ 105 mls/hr IV.SIG Q8HR [facility] Last Infusion: 06/25/18 06:49 Dose: Infused Potassium Chloride (Kcl 20 Meq Premix Inj) 20 meq in 100 mls @ 50 mls/hr IV.SIG Q2H [facility] Stop: 06/25/18 12:59 Last Admin: 06/25/18 08:52 Dose: 50 mls/hr Miscellaneous Medication () 1 each OROPHARYNG 0000,0400,1200,1600 [facility] Last Admin: 06/25/18 03:04 Dose: 1 each Morphine Sulfate (Morphine Inj) 4 mg IV.PUSH Q4H PRN PRN Reason: PAIN SCALE 6 TO 10 IF NOT RUI Last Admin: 06/24/18 14:31 Dose: 4 mg Morphine Sulfate (Morphine Inj) 2 mg IV.PUSH Q4H PRN PRN Reason: PAIN 1 TO 5 IF NOT RUI PO Quetiapine Fumarate (Seroquel) 25 mg PO BID [facility] Last Admin: 06/25/18 08:53 Dose: 25 mg Quetiapine Fumarate (Seroquel) 100 mg PO HS [facility] Last Admin: 06/24/18 21:43 Dose: 100 mg Sodium Chloride (Ns Flush) 2 ml IV.FLUSH PRN PRN PRN Reason: FLUSH AFTER USING IV ACCESS Last Admin: 06/24/18 08:15 Dose: 2 ml Thiamine HCl (Vitamin B1) 100 mg PO DAILY [facility] Last Admin: 06/25/18 08:53 Dose: 100 mg Allergies/Adverse Reactions: Allergies Allergy/AdvReac Type Severity Reaction Status Date / Time strawberry Allergy Unknown Swelling Verified 06/24/18 08:08 Review of Systems unobtainable due to endotracheal tube, unobtainable due to mental status Physical Exam Vital signs: Vital Signs 06/24/18 09:24 06/24/18 09:46 06/24/18 09:54 Temperature Pulse Rate 97 H 89 95 H Respiratory Rate 14 26 H 18 Blood Pressure 133/78 166/97 H 151/84 H Pulse Oximetry 98 100 100 06/24/18 10:00 06/24/18 10:10 06/24/18 10:28 Temperature Pulse Rate 100 H 102 H Respiratory Rate 16 18 16 Blood Pressure 162/93 H 158/74 H Pulse Oximetry 100 100 100 06/24/18 11:00 06/24/18 12:00 06/24/18 12:30 Temperature Pulse Rate 76 80 70 Respiratory Rate 16 16 Blood Pressure 114/73 134/70 Pulse Oximetry 100 100 06/24/18 12:52 06/24/18 13:00 06/24/18 13:04 Temperature 100.1 F H Pulse Rate 85 80 78 Respiratory Rate 42 H 33 H 32 H Blood Pressure 134/76 130/83 Pulse Oximetry 73 L 100 06/24/18 13:40 06/24/18 14:00 06/24/18 14:10 Temperature Pulse Rate 77 81 82 Respiratory Rate 24 36 H 34 H Blood Pressure 139/80 151/93 H Pulse Oximetry 100 100 100 06/24/18 14:40 06/24/18 15:00 06/24/18 15:10 Temperature Pulse Rate 74 69 67 Respiratory Rate 17 16 36 H Blood Pressure 116/73 99/61 L Pulse Oximetry 100 100 100 06/24/18 15:40 06/24/18 16:00 06/24/18 16:10 Temperature 98.9 F Pulse Rate 66 65 65 Respiratory Rate 19 25 H 17 Blood Pressure 121/74 131/75 Pulse Oximetry 100 100 100 06/24/18 16:33 06/24/18 16:40 06/24/18 16:52 Temperature Pulse Rate 69 73 Respiratory Rate 25 H 17 20 Blood Pressure 129/71 129/73 Pulse Oximetry 100 100 100 06/24/18 16:56 06/24/18 17:00 06/24/18 17:10 Temperature Pulse Rate 73 72 73 Respiratory Rate 19 22 17 Blood Pressure 137/72 Pulse Oximetry 99 99 06/24/18 17:40 06/24/18 18:00 06/24/18 18:10 Temperature Pulse Rate 68 71 70 Respiratory Rate 28 H 22 23 Blood Pressure 126/69 124/70 Pulse Oximetry 99 99 99 06/24/18 18:40 06/24/18 19:00 06/24/18 19:10 Temperature Pulse Rate 66 67 64 Respiratory Rate 22 24 16 Blood Pressure 124/66 103/58 L Pulse Oximetry 99 100 99 06/24/18 19:40 06/24/18 20:00 06/24/18 20:04 Temperature 98.5 F Pulse Rate 60 58 L 58 L Respiratory Rate 16 29 H 16 Blood Pressure 96/55 L Pulse Oximetry 99 99 99 06/24/18 20:10 06/24/18 20:40 06/24/18 21:00 Temperature Pulse Rate 58 L 58 L 65 Respiratory Rate 16 16 21 Blood Pressure 105/58 L 109/59 L Pulse Oximetry 99 100 100 06/24/18 21:10 06/24/18 21:40 06/24/18 22:00 Temperature Pulse Rate 63 61 61 Respiratory Rate 15 17 17 Blood Pressure 124/74 112/66 Pulse Oximetry 100 100 100 06/24/18 22:10 06/24/18 22:40 06/24/18 23:00 Temperature Pulse Rate 60 61 64 Respiratory Rate 17 16 17 Blood Pressure 110/62 113/61 Pulse Oximetry 99 100 100 06/24/18 23:10 06/24/18 23:12 06/24/18 23:14 Temperature Pulse Rate 60 60 61 Respiratory Rate 19 16 30 H Blood Pressure 83/49 L 79/48 L 78/48 L Pulse Oximetry 100 100 100 06/24/18 23:15 06/25/18 00:00 06/25/18 00:01 Temperature 98.9 F Pulse Rate 61 58 L 58 L Respiratory Rate 31 H 23 23 Blood Pressure 88/55 L 81/52 L Pulse Oximetry 99 100 100 06/25/18 00:07 06/25/18 00:16 06/25/18 00:29 Temperature Pulse Rate 57 L 56 L 55 L Respiratory Rate 21 23 22 Blood Pressure 85/51 L 85/52 L 89/50 L Pulse Oximetry 100 100 100 06/25/18 00:44 06/25/18 00:59 06/25/18 01:00 Temperature Pulse Rate 55 L 57 L 58 L Respiratory Rate 16 16 19 Blood Pressure 104/58 L 105/59 L Pulse Oximetry 100 100 100 06/25/18 01:12 06/25/18 01:14 06/25/18 01:29 Temperature Pulse Rate 58 L 58 L Respiratory Rate 16 16 16 Blood Pressure 112/64 111/56 L Pulse Oximetry 100 100 100 06/25/18 01:44 06/25/18 01:59 06/25/18 02:00 Temperature Pulse Rate 58 L 59 L 59 L Respiratory Rate 16 17 16 Blood Pressure 107/60 106/62 Pulse Oximetry 100 100 100 06/25/18 02:14 06/25/18 02:29 06/25/18 02:44 Temperature Pulse Rate 59 L 60 61 Respiratory Rate 17 16 16 Blood Pressure 115/58 L 99/53 L 92/54 L Pulse Oximetry 100 100 100 06/25/18 02:59 06/25/18 03:00 06/25/18 03:14 Temperature Pulse Rate 61 61 61 Respiratory Rate 16 16 16 Blood Pressure 93/51 L 95/50 L Pulse Oximetry 100 100 100 06/25/18 03:29 06/25/18 03:44 06/25/18 03:54 Temperature Pulse Rate 58 L 60 56 L Respiratory Rate 16 18 16 Blood Pressure 107/55 L 124/61 Pulse Oximetry 100 100 06/25/18 03:59 06/25/18 04:00 06/25/18 04:14 Temperature 98.3 F Pulse Rate 57 L 57 L 58 L Respiratory Rate 16 16 16 Blood Pressure 114/60 107/60 Pulse Oximetry 100 100 100 06/25/18 04:42 06/25/18 04:44 06/25/18 04:59 Temperature Pulse Rate 60 58 L Respiratory Rate 16 16 16 Blood Pressure 115/56 L 105/59 L Pulse Oximetry 100 100 100 06/25/18 05:00 06/25/18 05:14 06/25/18 05:29 Temperature Pulse Rate 59 L 57 L 62 Respiratory Rate 17 16 28 H Blood Pressure 99/54 L 118/66 Pulse Oximetry 100 100 100 06/25/18 05:44 06/25/18 05:59 06/25/18 06:00 Temperature Pulse Rate 63 61 61 Respiratory Rate 28 H 21 20 Blood Pressure 111/59 L 109/62 Pulse Oximetry 100 100 100 06/25/18 06:14 06/25/18 08:35 Temperature Pulse Rate 59 L 57 L Respiratory Rate 20 23 Blood Pressure 102/58 L Pulse Oximetry 100 100 Intake & Output 06/24/18 06/25/18 06/25/18 18:59 06:59 18:59 Intake Total 1305 / 1305 2637 / 2637 Output Total 660 / 660 1065 / 1065 Balance 645 / 645 1572 / 1572 Weight 86.183 kg 80.7 kg Intake: IV 1305 / 1305 2510 / 2510 Diprivan 1000 mg/100 ml Inj 1, 100 / 100 200 / 200 000 mg In 100 ml @ 5 MCG/KG/MIN 2.585 mls/hr IV.CONT TITRATE PRN Rx#:[id number] NS Inj 1,000 ML @ 125 mls/hr IV 1000 / 1000 1000 / 1000 .CONT .Q8H [facility] Rx#:[id number] NS Inj 1,000 ML @ 1000 mls/hr 1000 / 1000 IV.SIG BOLUS [facility] Rx#:[id number] Depacon Inj 500 MG In NS Inj 105 / 105 210 / 210 100 ML @ 105 mls/hr IV.SIG Q8HR [facility] Rx#:[id number] Keppra 1000 mg/100 mL Premix 100 / 100 100 / 100 100 ML @ 400 mls/hr IV.SIG Q12H [facility] Rx#:[id number] Tube Feeding 127 / 127 Output: Urine Amount (Catheter) 660 / 660 950 / 950 Indwelling Urethral Catheter 660 / 660 950 / 950 Intracranial Drainage 115 / 115 Right Temporoparietal 115 / 115 Narrative: GENERAL: in NAD, SKIN: Warm and dry. HEAD: Atraumatic. Normocephalic. EYES: Pupils equal and round. No scleral icterus. ENT: No nasal bleeding or discharge. NECK: Trachea midline. No JVD. CARDIOVASCULAR: Regular rate and rhythm. RESPIRATORY: Intubated. NEUROLOGICAL: Intubated no involuntary movements, state not following no gaze deviation; stimulus invoked tremulousness PSYCHIATRIC: Intubated - Constitutional no acute distress - Routine HEENT Exam Head: Present: normocephalic - Urinary Catheter Management Indwelling Urethral Catheter Cath placed during this visit: yes Reason for continuing: Acute urinary retention Insertion date: 06/24/18 Insertion time: 09:50 Objective Laboratory Results - last 24 hr 06/24/18 06/24/18 06/24/18 08:05 08:05 10:52 WBC RBC Hgb Hct MCV MCH MCHC RDW Plt Count MPV Prelim Diff (Auto) Neut % (Auto) Lymph % (Auto) [place] % (Auto) Eos % (Auto) Baso % (Auto) Neut # (Auto) Lymph # (Auto) [place] # (Auto) Eos # (Auto) Baso # (Auto) WBC Differential Diff Scan Differential Comment Platelet Estimate Platelet Morphology PT 11.2 INR 1.1 APTT 28.9 Puncture Site Left radial Patient Temperature 98.6 O2 Saturation 98 ABG pH 7.43 H ABG pCO2 36 L ABG pO2 155 H ABG HCO3 23 ABG O2 Content 16.4 ABG Base Excess -0.6 ABG Methemoglobin 0.6 Rell Test Present Hemoglobin 11.7 L Carboxyhemoglobin 1.0 O2 Delivery Device Ventilator Vent Setting 550/16/+5/1.0 Inspired O2 40 Critical Value No Sodium Potassium Chloride Carbon Dioxide Anion Gap BUN Creatinine Estimated GFR POC Glucose Random Glucose Calcium Total Bilirubin AST ALT Alkaline Phosphatase Total Protein Albumin Nasal Screen MRSA (PCR) Valproic Acid 39 L 06/24/18 06/24/18 06/25/18 18:23 19:35 00:35 WBC RBC Hgb Hct MCV MCH MCHC RDW Plt Count MPV Prelim Diff (Auto) Neut % (Auto) Lymph % (Auto) [place] % (Auto) Eos % (Auto) Baso % (Auto) Neut # (Auto) Lymph # (Auto) [place] # (Auto) Eos # (Auto) Baso # (Auto) WBC Differential Diff Scan Differential Comment Platelet Estimate Platelet Morphology PT INR APTT Puncture Site Patient Temperature O2 Saturation ABG pH ABG pCO2 ABG pO2 ABG HCO3 ABG O2 Content ABG Base Excess ABG Methemoglobin Rell Test Hemoglobin Carboxyhemoglobin O2 Delivery Device Vent Setting Inspired O2 Critical Value Sodium Potassium Chloride Carbon Dioxide Anion Gap BUN Creatinine Estimated GFR POC Glucose 77 83 Random Glucose Calcium Total Bilirubin AST ALT Alkaline Phosphatase Total Protein Albumin Nasal Screen MRSA (PCR) Not detected Valproic Acid 06/25/18 06/25/18 04:58 04:58 WBC 7.7 RBC 3.64 L Hgb 11.7 L Hct 34.6 L MCV 95.0 MCH 32.1 MCHC 33.8 RDW 13.1 Plt Count 97 L D MPV 7.1 Prelim Diff (Auto) Slide review pending Neut % (Auto) 67.6 Lymph % (Auto) 18.2 [place] % (Auto) 12.3 H Eos % (Auto) 1.7 Baso % (Auto) 0.2 Neut # (Auto) 5.2 Lymph # (Auto) 1.4 [place] # (Auto) 1.0 H Eos # (Auto) 0.1 Baso # (Auto) 0.0 WBC Differential . Diff Scan Auto diff confirmed Differential Comment . Platelet Estimate Low L Platelet Morphology Normal PT INR APTT Puncture Site Patient Temperature O2 Saturation ABG pH ABG pCO2 ABG pO2 ABG HCO3 ABG O2 Content ABG Base Excess ABG Methemoglobin Rell Test Hemoglobin Carboxyhemoglobin O2 Delivery Device Vent Setting Inspired O2 Critical Value Sodium 146 H Potassium 3.3 L Chloride 112 H Carbon Dioxide 26.2 Anion Gap 8 BUN 10 Creatinine 0.67 Estimated GFR Greater than 89 POC Glucose Random Glucose 85 Calcium 8.2 L Total Bilirubin 0.4 AST 20 ALT 18 Alkaline Phosphatase 75 Total Protein 6.1 L Albumin 2.8 L Nasal Screen MRSA (PCR) Valproic Acid Review/Management - Diagnosis (1) Encephalomalacia Code(s): G93.89 - Other specified disorders of brain Status: Acute Current Visit: Yes (2) Dementia Code(s): F03.90 - Unspecified dementia without behavioral disturbance Status: Acute Current Visit: Yes (3) Intractable seizure disorder Code(s): G40.919 - Epilepsy, unspecified, intractable, without status epilepticus Status: Acute Current Visit: Yes (4) ICH (intracerebral hemorrhage) Code(s): I61.9 - Nontraumatic intracerebral hemorrhage, unspecified Status: Acute Current Visit: Yes - Review/Management Plan: Intracranial hemorrhage. 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 Seizures Probable underlying vascular dementia stimulus invoked tremors Recommendation Follow-up EEG- no sz IV depakote with Keppra depakote increased to 750mg tid Critical care neurosurgical management Blood pressure control extubation per CCM (4) ICH (intracerebral hemorrhage) Qualifiers: Intracerebral hemorrhage etiology: nontraumatic Cerebral hemorrhage location : multiple localized areas of cerebrum Laterality: right Qualified Code(s): I61.6 - Nontraumatic intracerebral hemorrhage, multiple localized
--- NOTE | 2018-06-25 11:47 | CT ---
EXAM DATE: 06/25/2018 11:36 AM EST AGE/SEX: 67 years / Male INDICATIONS: Intracranial hemorrhage. CLINICAL DATA: This is the patient's subsequent encounter. Patient reports that signs and symptoms h ave been present for 4 - 6 days and indicates a pain score of Nonresponsive. MEDICAL/SURGICAL HISTORY: Alzheimer's disease. Dementia. Gastroesophageal reflux disease. Stroke . Seizure. Hypertension. None. RADIATION DOSE: 56.35 CTDI (mGy) COMPARISON: [facility] – [place], CT HEAD W/O CONTRAST, 06/24/2018. . TECHNIQUE: CT of the head without contrast. Using automated exposure control and adjustment of the mA and/or kV according to patient size, radiation dose was kept as low as reasonably achievable to ob tain optimal diagnostic quality images. DICOM format image data is available electronically for revi ew and comparison. FINDINGS: The only interval change from the prior examination has been the development of a small amount of acu te subdural hemorrhage in the interhemispheric fissure posteriorly approaching the vertex. This was n ot present on yesterday's study. There is also been a slight increase in the intraventricular hemorrh age bilaterally but more pronounced on the right. The large intraparenchymal hemorrhage involving the right frontal lobe and to a lesser degree right temporal lobe as well as the subdural blood overlyin g the right frontal lobe and anterior interhemispheric fissure are stable. There is been interval jw cement of a ventriculostomy on the right. The tip is in the right lateral ventricle. Encephalomalacia again seen with ex vacuo dilatation previously described. No midline shift or herniation. Small volu me pneumocephaly relating to the ventriculostomy placement. CONCLUSION: 1. New small focus of acute subdural hemorrhage involving the interhemispheric fissure posteriorly n ear the vertex as well as a slight increase in the intraventricular hemorrhage. The remaining areas o f hemorrhage are stable. No midline shift. 2. Right-sided ventriculostomy. . Electronically signed by: Raul Ortiz MD 06/25/2018 11:46 AM EST
--- NOTE | 2018-06-25 12:35 | P.DIET ---
Nutritional Evaluation Type of nutrition evaluation: initial Nutrition consult regarding: Tube Feeding Screening comments: No ht available. 6 cm for ht is currently entered in EMR. Subjective Subjective Comments: [place] resident. Objective - Diagnosis ICH, L humeral fx, status epilepticus - Objective Body Weight Used for Calculations: Actual (80.7 kg) Energy Needs - Lower Range (kCal/kg): 25 Energy Needs - Upper Range (kCal/kg): 30 Lower Limit kCal/kg (kCals): 2,017 Upper Limit kCal/kg (kCals): 2,421 Lower Limit Protein Factor (Grams per Kg): 1.0 Upper Limit Protein Factor (Grams per Kg): 1.5 Lower Protein Needs (Protein): 81 Upper Protein Needs (Protein): 121 Dietitian Reviewed in Medical Record: Curent medications, Intake & Output, Labs , Medical history, Tube feeding Diet Order: NPO Assessment Assessment: Pt is at high nutrition risk 2' to his need for TFing. Current order is for Jevity 1.5 @ 30 mls/hr. To meet needs with Jevity 1.5, recommend goal rate of 60 mls/hr to provide 2160 kcals, 92 gms protein and 1094 mls of free water. Some additional kcals will be provided by propofol (1.1 kcal/ml). Recommendations: Jevity 1.5 @ 60 mls/hr goal Dietitian to Monitor: Lab values, Intake & Output, Tube feeding tolerance, Weight change, Medical course
--- NOTE | 2018-06-25 12:48 | P.PNCC ---
Subjective Subjective Remarks/Hospital Course: 06/24: 67-year-old male with a medical history significant for dementia, seizure disorder, previous stroke, hypertension who was brought to the ER from [facility] after he had multiple seizures this morning. On arrival in the ER he appeared to be seizing and was intubated by ER physician and placed on mechanical ventilation and sedated with propofol. Head CT done in the ER revealed left frontal intraparenchymal bleed with subdural hemorrhage. Patient was also noted to have a left humerus neck fracture on x-ray. He reportedly has been falling at the halfway multiple times. Patient has been on Eliquis at home and he received K Centra following arrival to the ER for reversal. 06/25: Remains sedated, orally intubated on mechanical ventilation. Head CT done today with new area of small subdural hemorrhage and increase in size of intraventricular hemorrhage, intraparenchymal hemorrhage same size. Objective Vital Signs / I&O: Vital Signs 06/24/18 12:52 06/24/18 13:00 06/24/18 13:04 Temperature 100.1 F H Pulse Rate 85 80 78 Respiratory Rate 42 H 33 H 32 H Blood Pressure 134/76 130/83 Pulse Oximetry 73 L 100 06/24/18 13:40 06/24/18 14:00 06/24/18 14:10 Temperature Pulse Rate 77 81 82 Respiratory Rate 24 36 H 34 H Blood Pressure 139/80 151/93 H Pulse Oximetry 100 100 100 06/24/18 14:40 06/24/18 15:00 06/24/18 15:10 Temperature Pulse Rate 74 69 67 Respiratory Rate 17 16 36 H Blood Pressure 116/73 99/61 L Pulse Oximetry 100 100 100 06/24/18 15:40 06/24/18 16:00 06/24/18 16:10 Temperature 98.9 F Pulse Rate 66 65 65 Respiratory Rate 19 25 H 17 Blood Pressure 121/74 131/75 Pulse Oximetry 100 100 100 06/24/18 16:33 06/24/18 16:40 06/24/18 16:52 Temperature Pulse Rate 69 73 Respiratory Rate 25 H 17 20 Blood Pressure 129/71 129/73 Pulse Oximetry 100 100 100 06/24/18 16:56 06/24/18 17:00 06/24/18 17:10 Temperature Pulse Rate 73 72 73 Respiratory Rate 19 22 17 Blood Pressure 137/72 Pulse Oximetry 99 99 06/24/18 17:40 06/24/18 18:00 06/24/18 18:10 Temperature Pulse Rate 68 71 70 Respiratory Rate 28 H 22 23 Blood Pressure 126/69 124/70 Pulse Oximetry 99 99 99 06/24/18 18:40 06/24/18 19:00 06/24/18 19:10 Temperature Pulse Rate 66 67 64 Respiratory Rate 22 24 16 Blood Pressure 124/66 103/58 L Pulse Oximetry 99 100 99 06/24/18 19:40 06/24/18 20:00 06/24/18 20:04 Temperature 98.5 F Pulse Rate 60 58 L 58 L Respiratory Rate 16 29 H 16 Blood Pressure 96/55 L Pulse Oximetry 99 99 99 06/24/18 20:10 06/24/18 20:40 06/24/18 21:00 Temperature Pulse Rate 58 L 58 L 65 Respiratory Rate 16 16 21 Blood Pressure 105/58 L 109/59 L Pulse Oximetry 99 100 100 06/24/18 21:10 06/24/18 21:40 06/24/18 22:00 Temperature Pulse Rate 63 61 61 Respiratory Rate 15 17 17 Blood Pressure 124/74 112/66 Pulse Oximetry 100 100 100 06/24/18 22:10 06/24/18 22:40 06/24/18 23:00 Temperature Pulse Rate 60 61 64 Respiratory Rate 17 16 17 Blood Pressure 110/62 113/61 Pulse Oximetry 99 100 100 06/24/18 23:10 06/24/18 23:12 06/24/18 23:14 Temperature Pulse Rate 60 60 61 Respiratory Rate 19 16 30 H Blood Pressure 83/49 L 79/48 L 78/48 L Pulse Oximetry 100 100 100 06/24/18 23:15 06/25/18 00:00 06/25/18 00:01 Temperature 98.9 F Pulse Rate 61 58 L 58 L Respiratory Rate 31 H 23 23 Blood Pressure 88/55 L 81/52 L Pulse Oximetry 99 100 100 06/25/18 00:07 06/25/18 00:16 06/25/18 00:29 Temperature Pulse Rate 57 L 56 L 55 L Respiratory Rate 21 23 22 Blood Pressure 85/51 L 85/52 L 89/50 L Pulse Oximetry 100 100 100 06/25/18 00:44 06/25/18 00:59 06/25/18 01:00 Temperature Pulse Rate 55 L 57 L 58 L Respiratory Rate 16 16 19 Blood Pressure 104/58 L 105/59 L Pulse Oximetry 100 100 100 06/25/18 01:12 06/25/18 01:14 06/25/18 01:29 Temperature Pulse Rate 58 L 58 L Respiratory Rate 16 16 16 Blood Pressure 112/64 111/56 L Pulse Oximetry 100 100 100 06/25/18 01:44 06/25/18 01:59 06/25/18 02:00 Temperature Pulse Rate 58 L 59 L 59 L Respiratory Rate 16 17 16 Blood Pressure 107/60 106/62 Pulse Oximetry 100 100 100 06/25/18 02:14 06/25/18 02:29 06/25/18 02:44 Temperature Pulse Rate 59 L 60 61 Respiratory Rate 17 16 16 Blood Pressure 115/58 L 99/53 L 92/54 L Pulse Oximetry 100 100 100 06/25/18 02:59 06/25/18 03:00 06/25/18 03:14 Temperature Pulse Rate 61 61 61 Respiratory Rate 16 16 16 Blood Pressure 93/51 L 95/50 L Pulse Oximetry 100 100 100 06/25/18 03:29 06/25/18 03:44 06/25/18 03:54 Temperature Pulse Rate 58 L 60 56 L Respiratory Rate 16 18 16 Blood Pressure 107/55 L 124/61 Pulse Oximetry 100 100 06/25/18 03:59 06/25/18 04:00 06/25/18 04:14 Temperature 98.3 F Pulse Rate 57 L 57 L 58 L Respiratory Rate 16 16 16 Blood Pressure 114/60 107/60 Pulse Oximetry 100 100 100 06/25/18 04:42 06/25/18 04:44 06/25/18 04:59 Temperature Pulse Rate 60 58 L Respiratory Rate 16 16 16 Blood Pressure 115/56 L 105/59 L Pulse Oximetry 100 100 100 06/25/18 05:00 06/25/18 05:14 06/25/18 05:29 Temperature Pulse Rate 59 L 57 L 62 Respiratory Rate 17 16 28 H Blood Pressure 99/54 L 118/66 Pulse Oximetry 100 100 100 06/25/18 05:44 06/25/18 05:59 06/25/18 06:00 Temperature Pulse Rate 63 61 61 Respiratory Rate 28 H 21 20 Blood Pressure 111/59 L 109/62 Pulse Oximetry 100 100 100 06/25/18 06:14 06/25/18 08:00 06/25/18 08:35 Temperature Pulse Rate 59 L 57 L Respiratory Rate 20 23 Blood Pressure 102/58 L Pulse Oximetry 100 100 100 06/25/18 11:05 06/25/18 12:35 Temperature Pulse Rate Respiratory Rate 18 Blood Pressure Pulse Oximetry 100 100 Intake & Output 06/24/18 06/25/18 06/25/18 18:59 06:59 18:59 Intake Total 1305 / 1305 2637 / 2637 Output Total 660 / 660 1065 / 1065 Balance 645 / 645 1572 / 1572 Weight 86.183 kg 80.7 kg Intake: IV 1305 / 1305 2510 / 2510 Diprivan 1000 mg/100 ml Inj 1, 100 / 100 200 / 200 000 mg In 100 ml @ 5 MCG/KG/MIN 2.585 mls/hr IV.CONT TITRATE PRN Rx#:[id number] NS Inj 1,000 ML @ 125 mls/hr IV 1000 / 1000 1000 / 1000 .CONT .Q8H ESTELA Rx#:[id number] NS Inj 1,000 ML @ 1000 mls/hr 1000 / 1000 IV.SIG BOLUS ESTELA Rx#:[id number] Depacon Inj 500 MG In NS Inj 105 / 105 210 / 210 100 ML @ 105 mls/hr IV.SIG Q8HR ESTELA Rx#:[id number] Keppra 1000 mg/100 mL Premix 100 / 100 100 / 100 100 ML @ 400 mls/hr IV.SIG Q12H ESTELA Rx#:[id number] Tube Feeding 127 / 127 Output: Urine Amount (Catheter) 660 / 660 950 / 950 Indwelling Urethral Catheter 660 / 660 950 / 950 Intracranial Drainage 115 / 115 Right Temporoparietal 115 / 115 Result Diagrams: 06/25/18 04:58 06/25/18 04:58 Other Results: Laboratory Results - last 24 hr 06/24/18 06/24/18 06/24/18 08:05 18:23 19:35 WBC RBC Hgb Hct MCV MCH MCHC RDW Plt Count MPV Prelim Diff (Auto) Neut % (Auto) Lymph % (Auto) Pope % (Auto) Eos % (Auto) Baso % (Auto) Neut # (Auto) Lymph # (Auto) Pope # (Auto) Eos # (Auto) Baso # (Auto) WBC Differential Diff Scan Differential Comment Platelet Estimate Platelet Morphology Sodium Potassium Chloride Carbon Dioxide Anion Gap BUN Creatinine Estimated GFR POC Glucose 77 Random Glucose Calcium Total Bilirubin AST ALT Alkaline Phosphatase Total Protein Albumin Nasal Screen MRSA (PCR) Not detected Valproic Acid 39 L 06/25/18 06/25/18 06/25/18 00:35 04:58 04:58 WBC 7.7 RBC 3.64 L Hgb 11.7 L Hct 34.6 L MCV 95.0 MCH 32.1 MCHC 33.8 RDW 13.1 Plt Count 97 L D MPV 7.1 Prelim Diff (Auto) Slide review pending Neut % (Auto) 67.6 Lymph % (Auto) 18.2 Pope % (Auto) 12.3 H Eos % (Auto) 1.7 Baso % (Auto) 0.2 Neut # (Auto) 5.2 Lymph # (Auto) 1.4 Pope # (Auto) 1.0 H Eos # (Auto) 0.1 Baso # (Auto) 0.0 WBC Differential . Diff Scan Auto diff confirmed Differential Comment . Platelet Estimate Low L Platelet Morphology Normal Sodium 146 H Potassium 3.3 L Chloride 112 H Carbon Dioxide 26.2 Anion Gap 8 BUN 10 Creatinine 0.67 Estimated GFR Greater than 89 POC Glucose 83 Random Glucose 85 Calcium 8.2 L Total Bilirubin 0.4 AST 20 ALT 18 Alkaline Phosphatase 75 Total Protein 6.1 L Albumin 2.8 L Nasal Screen MRSA (PCR) Valproic Acid 06/25/18 10:10 WBC RBC Hgb Hct MCV MCH MCHC RDW Plt Count MPV Prelim Diff (Auto) Neut % (Auto) Lymph % (Auto) Pope % (Auto) Eos % (Auto) Baso % (Auto) Neut # (Auto) Lymph # (Auto) Pope # (Auto) Eos # (Auto) Baso # (Auto) WBC Differential Diff Scan Differential Comment Platelet Estimate Platelet Morphology Sodium Potassium Chloride Carbon Dioxide Anion Gap BUN Creatinine Estimated GFR POC Glucose Random Glucose Calcium Total Bilirubin AST ALT Alkaline Phosphatase Total Protein Albumin Nasal Screen MRSA (PCR) Valproic Acid 67 Imaging: Chest X-Ray 06/24/18 08:00 CONCLUSION: No acute cardiopulmonary disease. Head CT 06/24/18 08:00 CONCLUSION: 1. Acute intraparenchymal hemorrhage involving the right frontal lobe, right temporal lobe, and acute subdural hemorrhage involving the right frontal lobe and interhemispheric fissure. There is no mass effect. 2. Multiple areas of encephalomalacia are stable. . Chest X-Ray 06/24/18 09:42 CONCLUSION: 1. No endotracheal tube observed on this projection. 2. Clear lungs. Shoulder X-Ray 06/24/18 09:42 CONCLUSION: Acute nondisplaced humeral neck fracture. Head CT 06/25/18 00:00 CONCLUSION: 1. New small focus of acute subdural hemorrhage involving the interhemispheric fissure posteriorly near the vertex as well as a slight increase in the intraventricular hemorrhage. The remaining areas of hemorrhage are stable. No midline shift. 2. Right-sided ventriculostomy. . Objective Remarks: HEENT/ Neuro: Sedated, orally intubated, Pallor present, no icterus, tongue/ mucosa moist. Pupils 3 mm bilaterally reactive Neck: No JVD Chest/Pulm: on mech vent, good air entry bilaterally, no wheezing or crackles CVS: S1-S2 regular, no murmur GI/abdomen: soft, nontender, bowel sounds sluggish Extremities: warm bilaterally, no edema. Assessment and Plan - Assessment and Plan Plan: 67-year-old male with: Status epilepticus ICH/SDH Acute respiratory failure on mechanical ventilation Left humerus fracture History of dementia History of stroke Hypertension Plan: Neuro: Sedation with propofol. Keppra 1 g IV every 12 hourly. Valproate 500 mg IV every 8 hourly switched from p.o. dose at home. Check valproate level. Stat EEG. Neurology consult. Neurosurgery following for ICH, discussed with Dr. Jones - s/p ventriculostomy 06/24. ICPs normal. Cardiovascular: IV hydration, watch for hypotension. Hold antihypertensives at this time. Pulmonary: Continue mechanical ventilation, vent bundle, bronchodilators as needed. Patient will be kept intubated with no sedation vacation to seizures controlled. GI/liver: Tolerating tube feeds Renal/: IV hydration, strict intake, monitor and replete electrolytes, follow BUN and creatinine. MSK: Orthopedics consult for left humerus fracture. ID: No indication for antibiotics at this time. Watch for sepsis. Endocrine: SSI for glycemic control if needed Heme: Follow CBC. Received K Centra to reverse Eliquis in the ER. Prophylaxis: Pepcid/SCDs. Discussed with Dr. Jones. Condition critical Time spent on critical care excluding procedures 50 minutes
[2018-06-25] MEDS: Valproate Inj 750 MG in Sodium Chlor 0.9% Inj 100 ML IV.SIG SCH ×2 (13:20→21:27)
--- NOTE | 2018-06-25 14:00 | P.PNPAL ---
Palliative care continues to follow along throughout hospitalization. Obtained copies of guardianship papers. Copies faxed to HIM to be scanned into EMR. Guardian appointed is Lindy Rojo. Supportive visit provided, one of Mr. Rai' s caregivers at bedside. She tells me Shawnee (guardianship survey supervisor) will be coming to the hospital sometime today. Palliative care contact information provided. At this time goals remain aggressive short of NO CODE. Community DNR on chart as patient presented to [place] with this already in place. Palliative care will continue to follow for assistance with communication, ongoing support, and assistance with symptom management.
--- NOTE | 2018-06-25 18:26 | MG ---
cc: Jose Freed MD EEG NUMBER: [id number] Right arm shaking happens frequently from an EEG yesterday multiple seizures all day, spells Saturday, insomnia, dementia, schizophrenia, Seroquel, Depakote. Recording shows diffuse low-amplitude beta and some theta waves down to the 5 Hz. Recording overall is synchronous and symmetric. Some muscle artifact is seen over the left temporal leads. Photic stimulation is performed without significant posterior driving. Right arm shaking again is noted, but this only shows muscle artifact. IMPRESSION: Some mild diffuse theta slowing. Otherwise, a normal electroencephalogram. Again, the right arm is shaking, but there is not any seizure activity associated with it, just muscle movement and artifact. MD DINAH Leiva/wan , 05:36 PM , 05:39 PM
[2018-06-25] MEDS: QUEtiapine 100 MG Tablet PO SCH (21:27)
[2018-06-25 21:49] LABS: Anion Gap 5 meq/L (5-15); Blood Urea Nitrogen 8 mg/dL (7-18); Calcium 8.5 mg/dL (8.5-10.1); Carbon Dioxide 27.8 meq/L (21.0-32.0); Chloride 113 meq/L (98-107); Glomerular Filtration Rate Greater Than 89 mL/min (>89); Glucose,Random 84 mg/dL (74-106); Potassium 3.7 meq/L (3.5-5.1); Sodium 146 meq/L (136-145)
[2018-06-26] MEDS: Oral Hygiene Kit OROPHARYNG SCH ×4 (00:38→19:56)
[2018-06-26] MEDS: Sod Chloride 0.9% Inj 1,000 ML IV.CONT SCH ×3 (00:45→19:56)
[2018-06-26] MEDS: Chlorhexidine Gluconate 2% 1 Pack (2 Cloths) TOPICAL SCH (04:38)
[2018-06-26] MEDS: Propofol 1000 mg/100 ml Inj 1,000 MG/100 ML BOTTLE IV.CONT PRN ×4 (04:38→19:57)
[2018-06-26] MEDS: Valproate Inj 750 MG in Sodium Chlor 0.9% Inj 100 ML IV.SIG SCH ×3 (05:19→22:30)
[2018-06-26] MEDS: Famotidine 20 MG Tablet NG/OG SCH ×2 (08:22→20:14)
[2018-06-26] MEDS: levETIRAcetam 1000mg/100mL Inj 100 ML IV.SIG SCH ×2 (08:22→20:14)
[2018-06-26] MEDS: Haloperidol Lactate Oral Conc 10 MG/5 ML UDC PO SCH ×3 (08:22→18:21)
[2018-06-26] MEDS: QUEtiapine 25 MG Tablet PO SCH ×2 (08:22→20:14)
--- NOTE | 2018-06-26 13:55 | P.PNCC ---
Subjective Subjective Remarks/Hospital Course: 06/24: 67-year-old male with a medical history significant for dementia, seizure disorder, previous stroke, hypertension who was brought to the ER from [facility] after he had multiple seizures this morning. On arrival in the ER he appeared to be seizing and was intubated by ER physician and placed on mechanical ventilation and sedated with propofol. Head CT done in the ER revealed left frontal intraparenchymal bleed with subdural hemorrhage. Patient was also noted to have a left humerus neck fracture on x-ray. He reportedly has been falling at the senior living multiple times. Patient has been on Eliquis at home and he received K Centra following arrival to the ER for reversal. 06/25: Remains sedated, orally intubated on mechanical ventilation. Head CT done today with new area of small subdural hemorrhage and increase in size of intraventricular hemorrhage, intraparenchymal hemorrhage same size. 06/26: Remains sedated, orally intubated on mechanical ventilation. Repeat head CT shows slight worsening of intra-cerebral hemorrhage yesterday. Objective Vital Signs / I&O: Vital Signs 06/25/18 14:00 06/25/18 14:10 06/25/18 14:20 Temperature Pulse Rate 61 59 L 60 Respiratory Rate 18 16 16 Blood Pressure 119/67 103/57 L 104/57 L Pulse Oximetry 100 100 100 06/25/18 14:30 06/25/18 14:40 06/25/18 14:50 Temperature Pulse Rate 59 L 59 L 60 Respiratory Rate 16 16 16 Blood Pressure 103/59 L 108/56 L 102/58 L Pulse Oximetry 100 100 100 06/25/18 15:00 06/25/18 15:19 06/25/18 15:34 Temperature Pulse Rate 59 L 57 L 60 Respiratory Rate 16 16 20 Blood Pressure 89/53 L 83/52 L 94/52 L Pulse Oximetry 100 100 100 06/25/18 15:49 06/25/18 16:00 06/25/18 16:04 Temperature Pulse Rate 56 L 55 L 56 L Respiratory Rate 16 17 17 Blood Pressure 99/59 L 118/65 Pulse Oximetry 100 100 100 06/25/18 16:19 06/25/18 16:34 06/25/18 16:49 Temperature Pulse Rate 56 L 55 L 55 L Respiratory Rate 16 16 16 Blood Pressure 92/54 L 92/52 L 105/56 L Pulse Oximetry 100 100 100 06/25/18 17:00 06/25/18 17:04 06/25/18 17:19 Temperature Pulse Rate 54 L 55 L 54 L Respiratory Rate 16 19 16 Blood Pressure 103/61 114/67 Pulse Oximetry 100 100 100 06/25/18 17:34 06/25/18 17:49 06/25/18 18:00 Temperature Pulse Rate 59 L 68 68 Respiratory Rate 18 19 20 Blood Pressure 132/69 118/60 Pulse Oximetry 100 100 100 06/25/18 18:04 06/25/18 18:09 06/25/18 18:19 Temperature Pulse Rate 70 72 70 Respiratory Rate 22 20 21 Blood Pressure 136/72 141/75 H Pulse Oximetry 100 100 100 06/25/18 18:34 06/25/18 18:49 06/25/18 19:00 Temperature Pulse Rate 67 67 68 Respiratory Rate 24 22 22 Blood Pressure 125/63 123/66 Pulse Oximetry 100 100 100 06/25/18 19:04 06/25/18 19:19 06/25/18 19:34 Temperature Pulse Rate 69 74 79 Respiratory Rate 17 16 20 Blood Pressure 125/67 159/73 H 165/75 H Pulse Oximetry 100 100 100 06/25/18 19:49 06/25/18 20:00 06/25/18 20:04 Temperature 98.5 F Pulse Rate 71 74 73 Respiratory Rate 20 20 19 Blood Pressure 133/70 138/71 Pulse Oximetry 100 100 100 06/25/18 20:19 06/25/18 20:34 06/25/18 20:49 Temperature Pulse Rate 69 72 76 Respiratory Rate 20 19 21 Blood Pressure 136/72 143/78 H 141/76 H Pulse Oximetry 100 100 100 06/25/18 21:00 06/25/18 21:04 06/25/18 21:30 Temperature Pulse Rate 77 75 Respiratory Rate 21 20 18 Blood Pressure 144/79 H Pulse Oximetry 100 100 100 06/25/18 21:57 06/25/18 22:00 06/25/18 23:00 Temperature Pulse Rate 68 67 65 Respiratory Rate 21 19 19 Blood Pressure 118/63 95/51 L Pulse Oximetry 100 100 100 06/25/18 23:13 06/26/18 00:00 06/26/18 00:13 Temperature 98.9 F Pulse Rate 63 65 68 Respiratory Rate 23 18 17 Blood Pressure 97/55 L 142/76 H Pulse Oximetry 100 100 100 06/26/18 01:00 06/26/18 01:13 06/26/18 02:00 Temperature Pulse Rate 69 68 68 Respiratory Rate 21 19 25 H Blood Pressure 130/69 Pulse Oximetry 100 100 100 06/26/18 02:13 06/26/18 03:00 06/26/18 03:13 Temperature Pulse Rate 66 65 64 Respiratory Rate 17 17 20 Blood Pressure 114/65 136/68 Pulse Oximetry 100 100 100 06/26/18 04:00 06/26/18 04:13 06/26/18 04:16 Temperature 97.9 F Pulse Rate 66 66 66 Respiratory Rate 22 20 16 Blood Pressure 130/74 Pulse Oximetry 100 100 06/26/18 04:17 06/26/18 05:00 06/26/18 05:13 Temperature Pulse Rate 63 63 Respiratory Rate 16 17 20 Blood Pressure 127/78 Pulse Oximetry 100 100 100 06/26/18 06:00 06/26/18 06:13 06/26/18 07:00 Temperature Pulse Rate 63 61 71 Respiratory Rate 18 21 25 H Blood Pressure 151/77 H Pulse Oximetry 100 100 100 06/26/18 10:26 Temperature Pulse Rate 64 Respiratory Rate 17 Blood Pressure Pulse Oximetry 100 Intake & Output 06/25/18 06/26/18 06/26/18 18:59 06:59 18:59 Intake Total 1781.5 / 1781.5 1958.0 / 1958.0 100 / 100 Output Total 550 / 550 890 / 890 Balance 1231.5 / 1231.5 1068.0 / 1068.0 100 / 100 Weight 83.3 kg Intake: IV 1407.5 / 1407.5 1615.0 / 1615.0 100 / 100 Diprivan 1000 mg/100 ml Inj 1, 100 / 100 300 / 300 100 / 100 000 mg In 100 ml @ 5 MCG/KG/MIN 2.585 mls/hr IV.CONT TITRATE PRN Rx#:[id number] NS Inj 1,000 ML @ 125 mls/hr IV 1000 / 1000 1000 / 1000 .CONT .Q8H ESTELA Rx#:[id number] KCl 20 mEq Premix Inj 20 meq In 100 / 100 100 ml @ 50 mls/hr IV.SIG Q2H ESTELA Rx#:[id number] Depacon Inj 750 MG In NS Inj 107.5 / 107.5 215.0 / 215.0 100 ML @ 105 mls/hr IV.SIG Q8HR ESTELA Rx#:[id number] Keppra 1000 mg/100 mL Premix 100 / 100 100 / 100 100 ML @ 400 mls/hr IV.SIG Q12H ESTELA Rx#:[id number] Tube Feeding 314 / 314 343 / 343 Tube Irrigant 60 / 60 Output: Urine Amount (Catheter) 550 / 550 800 / 800 Indwelling Urethral Catheter 550 / 550 800 / 800 Intracranial Drainage 90 / 90 Right Temporoparietal 90 / 90 Other: # Bowel Movements 0 Result Diagrams: 06/25/18 04:58 06/25/18 21:00 Imaging: Impressions Head CT 06/25/18 00:00 CONCLUSION: 1. New small focus of acute subdural hemorrhage involving the interhemispheric fissure posteriorly near the vertex as well as a slight increase in the intraventricular hemorrhage. The remaining areas of hemorrhage are stable. No midline shift. 2. Right-sided ventriculostomy. . Objective Remarks: HEENT/ Neuro: Sedated, orally intubated, Pallor present, no icterus, tongue/ mucosa moist. Pupils 3 mm bilaterally reactive Neck: No JVD Chest/Pulm: on mech vent, good air entry bilaterally, no wheezing or crackles CVS: S1-S2 regular, no murmur GI/abdomen: soft, nontender, bowel sounds sluggish Extremities: warm bilaterally, no edema. Assessment and Plan - Assessment and Plan Plan: 67-year-old male with: Status epilepticus ICH/SDH Acute respiratory failure on mechanical ventilation Left humerus fracture History of dementia History of stroke Hypertension Plan: Neuro: Sedation with propofol. Keppra 1 g IV every 12 hourly. Valproate 500 mg IV every 8 hourly switched from p.o. dose at home. Check valproate level. Stat EEG. Neurology consult. Neurosurgery following for ICH, discussed with Dr. Jones - s/p ventriculostomy 06/24. ICPs normal. Cardiovascular: IV hydration, watch for hypotension. Hold antihypertensives at this time. Pulmonary: Continue mechanical ventilation, vent bundle, bronchodilators as needed. Patient will be kept intubated with no sedation vacation to seizures controlled. GI/liver: Tolerating tube feeds Renal/: IV hydration, strict intake, monitor and replete electrolytes, follow BUN and creatinine. MSK: Orthopedics consult for left humerus fracture noted - nonoperative management. ID: No indication for antibiotics at this time. Watch for sepsis. Endocrine: SSI for glycemic control if needed Heme: Follow CBC. Received K Centra to reverse Eliquis in the ER. Prophylaxis: Pepcid/SCDs. Palliative care following. Patient is DNR status at this time. Condition critical Time spent on critical care excluding procedures 30 minutes
--- NOTE | 2018-06-26 14:07 | P.PNNS ---
Subjective Interval history: Pt not opening eyes. Pupils 2mm bilaterally reactive bilaterally. Pt sedated on Diprivan fairly high dose. <Brady Short - Last Filed: 06/26/18 13:58> Physical Exam Vital signs: Vital Signs 06/25/18 14:00 06/25/18 14:10 06/25/18 14:20 Temperature Pulse Rate 61 59 L 60 Respiratory Rate 18 16 16 Blood Pressure 119/67 103/57 L 104/57 L Pulse Oximetry 100 100 100 06/25/18 14:30 06/25/18 14:40 06/25/18 14:50 Temperature Pulse Rate 59 L 59 L 60 Respiratory Rate 16 16 16 Blood Pressure 103/59 L 108/56 L 102/58 L Pulse Oximetry 100 100 100 06/25/18 15:00 06/25/18 15:19 06/25/18 15:34 Temperature Pulse Rate 59 L 57 L 60 Respiratory Rate 16 16 20 Blood Pressure 89/53 L 83/52 L 94/52 L Pulse Oximetry 100 100 100 06/25/18 15:49 06/25/18 16:00 06/25/18 16:04 Temperature Pulse Rate 56 L 55 L 56 L Respiratory Rate 16 17 17 Blood Pressure 99/59 L 118/65 Pulse Oximetry 100 100 100 06/25/18 16:19 06/25/18 16:34 06/25/18 16:49 Temperature Pulse Rate 56 L 55 L 55 L Respiratory Rate 16 16 16 Blood Pressure 92/54 L 92/52 L 105/56 L Pulse Oximetry 100 100 100 06/25/18 17:00 06/25/18 17:04 06/25/18 17:19 Temperature Pulse Rate 54 L 55 L 54 L Respiratory Rate 16 19 16 Blood Pressure 103/61 114/67 Pulse Oximetry 100 100 100 06/25/18 17:34 06/25/18 17:49 06/25/18 18:00 Temperature Pulse Rate 59 L 68 68 Respiratory Rate 18 19 20 Blood Pressure 132/69 118/60 Pulse Oximetry 100 100 100 06/25/18 18:04 06/25/18 18:09 06/25/18 18:19 Temperature Pulse Rate 70 72 70 Respiratory Rate 22 20 21 Blood Pressure 136/72 141/75 H Pulse Oximetry 100 100 100 06/25/18 18:34 06/25/18 18:49 06/25/18 19:00 Temperature Pulse Rate 67 67 68 Respiratory Rate 24 22 22 Blood Pressure 125/63 123/66 Pulse Oximetry 100 100 100 06/25/18 19:04 06/25/18 19:19 06/25/18 19:34 Temperature Pulse Rate 69 74 79 Respiratory Rate 17 16 20 Blood Pressure 125/67 159/73 H 165/75 H Pulse Oximetry 100 100 100 06/25/18 19:49 06/25/18 20:00 06/25/18 20:04 Temperature 98.5 F Pulse Rate 71 74 73 Respiratory Rate 20 20 19 Blood Pressure 133/70 138/71 Pulse Oximetry 100 100 100 06/25/18 20:19 06/25/18 20:34 06/25/18 20:49 Temperature Pulse Rate 69 72 76 Respiratory Rate 20 19 21 Blood Pressure 136/72 143/78 H 141/76 H Pulse Oximetry 100 100 100 06/25/18 21:00 06/25/18 21:04 06/25/18 21:30 Temperature Pulse Rate 77 75 Respiratory Rate 21 20 18 Blood Pressure 144/79 H Pulse Oximetry 100 100 100 06/25/18 21:57 06/25/18 22:00 06/25/18 23:00 Temperature Pulse Rate 68 67 65 Respiratory Rate 21 19 19 Blood Pressure 118/63 95/51 L Pulse Oximetry 100 100 100 06/25/18 23:13 06/26/18 00:00 06/26/18 00:13 Temperature 98.9 F Pulse Rate 63 65 68 Respiratory Rate 23 18 17 Blood Pressure 97/55 L 142/76 H Pulse Oximetry 100 100 100 06/26/18 01:00 06/26/18 01:13 06/26/18 02:00 Temperature Pulse Rate 69 68 68 Respiratory Rate 21 19 25 H Blood Pressure 130/69 Pulse Oximetry 100 100 100 06/26/18 02:13 06/26/18 03:00 06/26/18 03:13 Temperature Pulse Rate 66 65 64 Respiratory Rate 17 17 20 Blood Pressure 114/65 136/68 Pulse Oximetry 100 100 100 06/26/18 04:00 06/26/18 04:13 06/26/18 04:16 Temperature 97.9 F Pulse Rate 66 66 66 Respiratory Rate 22 20 16 Blood Pressure 130/74 Pulse Oximetry 100 100 06/26/18 04:17 06/26/18 05:00 06/26/18 05:13 Temperature Pulse Rate 63 63 Respiratory Rate 16 17 20 Blood Pressure 127/78 Pulse Oximetry 100 100 100 06/26/18 06:00 06/26/18 06:13 06/26/18 07:00 Temperature Pulse Rate 63 61 71 Respiratory Rate 18 21 25 H Blood Pressure 151/77 H Pulse Oximetry 100 100 100 06/26/18 10:26 Temperature Pulse Rate 64 Respiratory Rate 17 Blood Pressure Pulse Oximetry 100 Intake & Output 06/25/18 06/26/18 06/26/18 18:59 06:59 18:59 Intake Total 1781.5 / 1781.5 1958.0 / 1958.0 100 / 100 Output Total 550 / 550 890 / 890 Balance 1231.5 / 1231.5 1068.0 / 1068.0 100 / 100 Weight 83.3 kg Intake: IV 1407.5 / 1407.5 1615.0 / 1615.0 100 / 100 Diprivan 1000 mg/100 ml Inj 1, 100 / 100 300 / 300 100 / 100 000 mg In 100 ml @ 5 MCG/KG/MIN 2.585 mls/hr IV.CONT TITRATE PRN Rx#:[id number] NS Inj 1,000 ML @ 125 mls/hr IV 1000 / 1000 1000 / 1000 .CONT .Q8H ESTELA Rx#:[id number] KCl 20 mEq Premix Inj 20 meq In 100 / 100 100 ml @ 50 mls/hr IV.SIG Q2H [facility]A Rx#:[id number] Depacon Inj 750 MG In NS Inj 107.5 / 107.5 215.0 / 215.0 100 ML @ 105 mls/hr IV.SIG Q8HR [facility]ELA Rx#:[id number] Keppra 1000 mg/100 mL Premix 100 / 100 100 / 100 100 ML @ 400 mls/hr IV.SIG Q12H [facility]ELA Rx#:[id number] Tube Feeding 314 / 314 343 / 343 Tube Irrigant 60 / 60 Output: Urine Amount (Catheter) 550 / 550 800 / 800 Indwelling Urethral Catheter 550 / 550 800 / 800 Intracranial Drainage 90 / 90 Right Temporoparietal 90 / 90 Other: # Bowel Movements 0 - Constitutional no acute distress Comments: Pt sedated on Diprivan drip, 45 mcg. - Routine HEENT Exam Head: Absent: atraumatic (Ventriculostomy drain in place draining straw colored CSF.) Eye: Present: PERRL (Pupils 2mm bilaterally reactive bilaterally.) ENT: Absent: oropharynx clear (ET intubated. ) - Routine Respiratory Exam Present: patient mechanically ventilated (Intubated. PRVC A/C. Rate 16. Peep 5. FiO2 30%), CTA bilaterally, respiratory distress, rhonchi, wheezes - Routine Cardiovascular Exam Present: RRR, S1, S2. Absent: murmur - Routine Abdominal Exam Present: soft, normoactive bowel sounds. Absent: distended, firm - Routine Skin Exam Absent: cyanosis, erythema - Routine Neurological Exam Present: alert, altered mental status (Pt sedated on Diprivan.), moving all extremities (withdraws.) Pupils 2mm bilaterally reactive bilaterally. Ventriculostomy drain in place. ICP 1 with good waveform. Straw colored CSF. - Routine Psychiatric Exam Present: unable to assess - Urinary Catheter Management Indwelling Urethral Catheter Cath placed during this visit: yes Reason for continuing: Acute urinary retention Insertion date: 06/24/18 Insertion time: 09:50 <Brady Short - Last Filed: 06/26/18 13:58> Vital signs: Vital Signs 06/28/18 22:00 06/28/18 23:00 06/29/18 00:00 Temperature 100.9 F H Pulse Rate 67 68 66 Respiratory Rate 16 18 Blood Pressure 138/65 141/67 H 152/71 H Pulse Oximetry 100 100 100 06/29/18 01:00 06/29/18 01:41 06/29/18 02:00 Temperature Pulse Rate 70 67 Respiratory Rate 16 16 16 Blood Pressure 147/69 H 137/63 Pulse Oximetry 100 100 100 06/29/18 03:00 06/29/18 04:00 06/29/18 04:10 Temperature 99.2 F Pulse Rate 69 72 Respiratory Rate 16 17 18 Blood Pressure 148/69 H 147/67 H Pulse Oximetry 100 100 100 06/29/18 05:00 06/29/18 06:00 06/29/18 07:00 Temperature Pulse Rate 69 65 67 Respiratory Rate 16 16 16 Blood Pressure 143/65 H 139/64 142/65 H Pulse Oximetry 100 100 100 06/29/18 08:00 06/29/18 09:00 06/29/18 09:45 Temperature 100.9 F H Pulse Rate 69 75 Respiratory Rate 16 18 17 Blood Pressure 143/66 H 145/77 H Pulse Oximetry 99 100 100 06/29/18 10:00 06/29/18 11:00 06/29/18 12:00 Temperature 99.6 F Pulse Rate 66 67 73 Respiratory Rate 13 16 12 Blood Pressure 141/66 H 146/71 H 147/71 H Pulse Oximetry 100 100 100 06/29/18 13:00 06/29/18 14:00 06/29/18 15:00 Temperature Pulse Rate 68 66 68 Respiratory Rate 13 13 10 L Blood Pressure 141/68 H 145/67 H 143/65 H Pulse Oximetry 100 100 100 06/29/18 16:00 06/29/18 17:00 06/29/18 18:00 Temperature 99.8 F H Pulse Rate 74 77 77 Respiratory Rate 13 13 17 Blood Pressure 146/81 H 141/66 H 152/65 H Pulse Oximetry 100 100 99 06/29/18 20:00 06/29/18 20:02 Temperature Pulse Rate 85 Respiratory Rate 20 Blood Pressure Pulse Oximetry 100 Intake & Output 06/29/18 06/29/18 06/30/18 06:59 18:59 06:59 Intake Total 1933.1 / 1933.1 3023.6 / 3023.6 Output Total 1425 / 1425 739 / 739 Balance 508.1 / 508.1 2284.6 / 2284.6 Weight 87.4 kg Intake: IV 1315.1 / 1315.1 2207.6 / 2207.6 NS Inj 1,000 ML @ 125 mls/hr IV 1000 / 1000 1999 / 1999 .CONT .Q8H ESTELA Rx#:[id number] Depacon Inj 750 MG In NS Inj 215.1 / 215.1 107.6 / 107.6 100 ML @ 105 mls/hr IV.SIG Q8HR [facility] Rx#:[id number] Keppra 1000 mg/100 mL Premix 100 / 100 100 / 100 100 ML @ 400 mls/hr IV.SIG Q12H ESTELA Rx#:[id number] Tube Feeding 558 / 558 566 / 566 Tube Irrigant 60 / 60 Water Bolus Amount 250 / 250 Output: Urine Amount (Catheter) 1325 / 1325 675 / 675 Indwelling Urethral Catheter 1325 / 1325 675 / 675 Gastric Drainage 0 / 0 Oral Orogastric Tube 0 / 0 Intracranial Drainage 100 / 100 64 / 64 Right Temporoparietal 100 / 100 64 / 64 Other: Date of Last Bowel Movement 06/29/18 06/29/18 06/29/18 # Bowel Movements 1 1 # Incontinent Bowel Movements 1 1 - Urinary Catheter Management Indwelling Urethral Catheter Cath placed during this visit: no <Betty Joneso - Last Filed: 06/29/18 21:33> Assessment and Plan - Assessment (1) Intractable seizure disorder Code(s): G40.919 - Epilepsy, unspecified, intractable, without status epilepticus Status: Acute (2) ICH (intracerebral hemorrhage) Code(s): I61.9 - Nontraumatic intracerebral hemorrhage, unspecified Status: Acute Qualifiers: Intracerebral hemorrhage etiology: nontraumatic Cerebral hemorrhage location: multiple localized areas of cerebrum Laterality: right Qualified Code(s): I61.6 - Nontraumatic intracerebral hemorrhage, multiple localized (3) Encephalomalacia Code(s): G93.89 - Other specified disorders of brain Status: Acute (4) Dementia Code(s): F03.90 - Unspecified dementia without behavioral disturbance Status: Acute - Plan A: 67 y/o M with right frontal ICH and IVH. s/p Ventriculostomy drain. P: Continue to monitor neuro exam closely. Continue with current care Continue with ventriculostomy drain. Wean sedation and Vent as vitals allow and as tolerated. <Brady Short - Last Filed: 06/26/18 13:58> - Assessment (1) Intractable seizure disorder Code(s): G40.919 - Epilepsy, unspecified, intractable, without status epilepticus Status: Acute (2) ICH (intracerebral hemorrhage) Code(s): I61.9 - Nontraumatic intracerebral hemorrhage, unspecified Status: Acute Qualifiers: Intracerebral hemorrhage etiology: nontraumatic Cerebral hemorrhage location: multiple localized areas of cerebrum Laterality: right Qualified Code(s): I61.6 - Nontraumatic intracerebral hemorrhage, multiple localized (3) Encephalomalacia Code(s): G93.89 - Other specified disorders of brain Status: Acute (4) Dementia Code(s): F03.90 - Unspecified dementia without behavioral disturbance Status: Acute <Sal Jones - Last Filed: 06/29/18 21:33>
[2018-06-26] MEDS: Chlorhexidine 0.12% Oral Kit 15 ML UDC OROPHARYNG SCH ×2 (18:20→20:14)
--- NOTE | 2018-06-26 19:35 | P.PNNEU ---
Subjective Active Medications: Active Medications Acetaminophen (Tylenol) 650 mg PO Q6H PRN PRN Reason: PAIN 1-10 AND/OR FEVER >101F Albuterol (Duoneb Neb (Prn)) 1 ampul NEB Q4HR NEB PRN PRN Reason: SHORTNESS OF BREATH Albuterol (Duoneb Neb (Eduardo)) 1 ampul NEB Q6HR NEB [facility] Last Admin: 06/26/18 18:13 Dose: 1 ampul Chlorhexidine Gluconate (Chlorhexidine 2% Cloth) 3 pack TOPICAL DAILY@0400 [facility] Stop: 06/30/18 03:59 Last Admin: 06/26/18 04:38 Dose: 3 pack Chlorhexidine Gluconate (Chlorhexidine 2% Cloth) 3 pack TOPICAL DAILY@0400 PRN PRN Reason: Extra cloth needed Stop: 06/30/18 03:59 Chlorhexidine Gluconate (Peridex 0.12% Oral Kit) 15 ml OROPHARYNG BID@0800, 2000 [facility] Last Admin: 06/26/18 18:20 Dose: 15 ml Famotidine (Pepcid) 20 mg NG/OG BID [facility] Last Admin: 06/26/18 08:22 Dose: 20 mg Haloperidol Lactate (Haldol Lactate Liq) 5 mg PO TID [facility] Last Admin: 06/26/18 18:21 Dose: 5 mg Sodium Chloride (Ns Inj) 1,000 mls @ 125 mls/hr IV.CONT .Q8H [facility] Last Admin: 06/26/18 18:20 Dose: Not Given Nicardipine HCl 25 mg/ Sodium (Chloride) 250 mls @ 50 mls/hr IV.CONT TITRATE PRN; Protocol PRN Reason: Per Protocol Propofol (Diprivan 1000 Mg/100 Ml Inj) 1,000 mg in 100 mls @ 2.585 mls/hr IV.CONT TITRATE PRN; Protocol PRN Reason: Per Protocol Last Admin: 06/26/18 14:25 Dose: 40 mcg/kg/min, 20.68 mls/hr Levetiracetam (Keppra 1000 Mg/100 Ml Premix) 100 mls @ 400 mls/hr IV.SIG Q12H [facility] Last Admin: 06/26/18 08:22 Dose: 400 mls/hr Valproate Sodium 750 mg/ (Sodium Chloride) 107.5 mls @ 105 mls/hr IV.SIG Q8HR [facility] Last Admin: 06/26/18 14:25 Dose: 105 mls/hr Miscellaneous Medication () 1 each OROPHARYNG 0000,0400,1200,1600 [facility] Last Admin: 06/26/18 18:20 Dose: 1 each Morphine Sulfate (Morphine Inj) 4 mg IV.PUSH Q4H PRN PRN Reason: PAIN SCALE 6 TO 10 IF NOT RUI Last Admin: 06/24/18 14:31 Dose: 4 mg Morphine Sulfate (Morphine Inj) 2 mg IV.PUSH Q4H PRN PRN Reason: PAIN 1 TO 5 IF NOT RUI PO Quetiapine Fumarate (Seroquel) 25 mg PO BID [facility] Last Admin: 06/26/18 08:22 Dose: 25 mg Quetiapine Fumarate (Seroquel) 100 mg PO HS [facility] Last Admin: 06/25/18 21:27 Dose: 100 mg Sodium Chloride (Ns Flush) 2 ml IV.FLUSH PRN PRN PRN Reason: FLUSH AFTER USING IV ACCESS Last Admin: 06/24/18 08:15 Dose: 2 ml Thiamine HCl (Vitamin B1) 100 mg PO DAILY [facility] Last Admin: 06/26/18 08:22 Dose: 100 mg Allergies/Adverse Reactions: Allergies Allergy/AdvReac Type Severity Reaction Status Date / Time strawberry Allergy Unknown Swelling Verified 06/24/18 08:08 Physical Exam Vital signs: Vital Signs 06/25/18 19:49 06/25/18 20:00 06/25/18 20:04 Temperature 98.5 F Pulse Rate 71 74 73 Respiratory Rate 20 20 19 Blood Pressure 133/70 138/71 Pulse Oximetry 100 100 100 06/25/18 20:19 06/25/18 20:34 06/25/18 20:49 Temperature Pulse Rate 69 72 76 Respiratory Rate 20 19 21 Blood Pressure 136/72 143/78 H 141/76 H Pulse Oximetry 100 100 100 06/25/18 21:00 06/25/18 21:04 06/25/18 21:30 Temperature Pulse Rate 77 75 Respiratory Rate 21 20 18 Blood Pressure 144/79 H Pulse Oximetry 100 100 100 06/25/18 21:57 06/25/18 22:00 06/25/18 23:00 Temperature Pulse Rate 68 67 65 Respiratory Rate 21 19 19 Blood Pressure 118/63 95/51 L Pulse Oximetry 100 100 100 06/25/18 23:13 06/26/18 00:00 06/26/18 00:13 Temperature 98.9 F Pulse Rate 63 65 68 Respiratory Rate 23 18 17 Blood Pressure 97/55 L 142/76 H Pulse Oximetry 100 100 100 06/26/18 01:00 06/26/18 01:13 06/26/18 02:00 Temperature Pulse Rate 69 68 68 Respiratory Rate 21 19 25 H Blood Pressure 130/69 Pulse Oximetry 100 100 100 06/26/18 02:13 06/26/18 03:00 06/26/18 03:13 Temperature Pulse Rate 66 65 64 Respiratory Rate 17 17 20 Blood Pressure 114/65 136/68 Pulse Oximetry 100 100 100 06/26/18 04:00 06/26/18 04:13 06/26/18 04:16 Temperature 97.9 F Pulse Rate 66 66 66 Respiratory Rate 22 20 16 Blood Pressure 130/74 Pulse Oximetry 100 100 06/26/18 04:17 06/26/18 05:00 06/26/18 05:13 Temperature Pulse Rate 63 63 Respiratory Rate 16 17 20 Blood Pressure 127/78 Pulse Oximetry 100 100 100 06/26/18 06:00 06/26/18 06:13 06/26/18 07:00 Temperature Pulse Rate 63 61 71 Respiratory Rate 18 21 25 H Blood Pressure 151/77 H Pulse Oximetry 100 100 100 06/26/18 07:13 06/26/18 08:00 06/26/18 08:13 Temperature Pulse Rate 74 68 65 Respiratory Rate 42 H 34 H 32 H Blood Pressure 152/83 H 139/73 Pulse Oximetry 100 100 100 06/26/18 09:00 06/26/18 09:13 06/26/18 10:00 Temperature Pulse Rate 75 65 65 Respiratory Rate 22 33 H 27 H Blood Pressure 143/77 H Pulse Oximetry 100 100 100 06/26/18 10:13 06/26/18 10:26 06/26/18 11:00 Temperature Pulse Rate 64 64 62 Respiratory Rate 26 H 17 28 H Blood Pressure 136/77 Pulse Oximetry 100 100 100 06/26/18 11:13 06/26/18 12:00 06/26/18 12:13 Temperature Pulse Rate 62 61 60 Respiratory Rate 24 23 22 Blood Pressure 147/78 H 151/80 H Pulse Oximetry 100 100 100 06/26/18 13:00 06/26/18 13:13 06/26/18 14:00 Temperature Pulse Rate 63 60 62 Respiratory Rate 23 19 21 Blood Pressure 150/78 H Pulse Oximetry 100 100 100 06/26/18 14:13 06/26/18 15:00 06/26/18 15:13 Temperature Pulse Rate 65 63 61 Respiratory Rate 19 19 19 Blood Pressure 161/82 H 150/79 H Pulse Oximetry 100 100 100 06/26/18 16:00 06/26/18 16:13 06/26/18 17:00 Temperature Pulse Rate 58 L 58 L 59 L Respiratory Rate 21 19 19 Blood Pressure 140/73 Pulse Oximetry 100 100 100 06/26/18 17:57 06/26/18 18:00 06/26/18 18:13 Temperature Pulse Rate 65 70 67 Respiratory Rate 24 21 21 Blood Pressure 151/79 H 152/74 H Pulse Oximetry 100 100 100 06/26/18 18:14 Temperature Pulse Rate 68 Respiratory Rate 19 Blood Pressure Pulse Oximetry 100 Intake & Output 06/26/18 06/26/18 06/27/18 06:59 18:59 06:59 Intake Total 1958.0 / 1958.0 655 / 655 Output Total 890 / 890 1315 / 1315 Balance 1068.0 / 1068.0 -660 / -660 Weight 83.3 kg Intake: IV 1615.0 / 1615.0 200 / 200 Diprivan 1000 mg/100 ml Inj 1, 300 / 300 200 / 200 000 mg In 100 ml @ 5 MCG/KG/MIN 2.585 mls/hr IV.CONT TITRATE PRN Rx#:[id number] NS Inj 1,000 ML @ 125 mls/hr IV 1000 / 1000 .CONT .Q8H [facility] Rx#:[id number] Depacon Inj 750 MG In NS Inj 215.0 / 215.0 100 ML @ 105 mls/hr IV.SIG Q8HR [facility] Rx#:[id number] Keppra 1000 mg/100 mL Premix 100 / 100 100 ML @ 400 mls/hr IV.SIG Q12H [facility] Rx#:[id number] Tube Feeding 343 / 343 395 / 395 Tube Irrigant 60 / 60 Output: Urine Amount (Catheter) 800 / 800 1200 / 1200 Indwelling Urethral Catheter 800 / 800 1200 / 1200 Intracranial Drainage 90 / 90 115 / 115 Right Temporoparietal 115 / 115 Other: # Bowel Movements 0 Narrative: fully sedated on dip pupil = toes mute - Urinary Catheter Management Indwelling Urethral Catheter Cath placed during this visit: yes Reason for continuing: Acute urinary retention Insertion date: 06/24/18 Insertion time: 09:50 Objective Laboratory Results - last 24 hr 06/25/18 06/26/18 21:00 00:49 Sodium 146 H Potassium 3.7 Chloride 113 H Carbon Dioxide 27.8 Anion Gap 5 BUN 8 Creatinine 0.66 Estimated GFR Greater than 89 POC Glucose 87 Random Glucose 84 Calcium 8.5 Microbiology 06/24/18 08:20 Urine Culture - Final Clean Catch Urine No growth in 48 hours Review/Management - Diagnosis (1) Encephalomalacia Code(s): G93.89 - Other specified disorders of brain Status: Acute Current Visit: Yes (2) Dementia Code(s): F03.90 - Unspecified dementia without behavioral disturbance Status: Acute Current Visit: Yes (3) Intractable seizure disorder Code(s): G40.919 - Epilepsy, unspecified, intractable, without status epilepticus Status: Acute Current Visit: Yes (4) ICH (intracerebral hemorrhage) Code(s): I61.9 - Nontraumatic intracerebral hemorrhage, unspecified Status: Acute Current Visit: Yes - Review/Management Plan: Intracranial hemorrhage. 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 Seizures Probable underlying vascular dementia stimulus invoked tremors Recommendation Follow-up EEG- no sz IV depakote with Keppra depakote increased to 750mg tid Critical care neurosurgical management Blood pressure control extubation per CCM 06/26/18 large r frontal ich r large vent shunt vpa 67 on keppra mult antipsycholtic i would hold no sz acc to nurse (4) ICH (intracerebral hemorrhage) Qualifiers: Intracerebral hemorrhage etiology: nontraumatic Cerebral hemorrhage location : multiple localized areas of cerebrum Laterality: right Qualified Code(s): I61.6 - Nontraumatic intracerebral hemorrhage, multiple localized
[2018-06-26] MEDS: Morphine Sulfate Inj 2 MG/ML Vial IV.PUSH PRN (22:30)
[2018-06-27] MEDS: Oral Hygiene Kit OROPHARYNG SCH ×4 (00:30→16:23)
[2018-06-27] MEDS: Propofol 1000 mg/100 ml Inj 1,000 MG/100 ML BOTTLE IV.CONT PRN ×2 (00:50→04:08)
[2018-06-27] MEDS: Chlorhexidine Gluconate 2% 1 Pack (2 Cloths) TOPICAL SCH (04:10)
[2018-06-27] MEDS: Valproate Inj 750 MG in Sodium Chlor 0.9% Inj 100 ML IV.SIG SCH ×3 (05:28→23:00)
[2018-06-27] MEDS: Sod Chloride 0.9% Inj 1,000 ML IV.CONT SCH (05:29)
[2018-06-27] MEDS: Chlorhexidine 0.12% Oral Kit 15 ML UDC OROPHARYNG SCH ×2 (09:10→21:05)
[2018-06-27] MEDS: levETIRAcetam 1000mg/100mL Inj 100 ML IV.SIG SCH ×2 (09:31→21:04)
[2018-06-27] MEDS: Famotidine 20 MG Tablet NG/OG SCH ×2 (09:31→21:04)
--- NOTE | 2018-06-27 09:42 | P.PNNEU ---
Subjective Active Medications: Active Medications Acetaminophen (Tylenol) 650 mg PO Q6H PRN PRN Reason: PAIN 1-10 AND/OR FEVER >101F Albuterol (Duoneb Neb (Prn)) 1 ampul NEB Q4HR NEB PRN PRN Reason: SHORTNESS OF BREATH Albuterol (Duoneb Neb (Eduardo)) 1 ampul NEB Q6HR NEB [facility] Last Admin: 06/27/18 09:08 Dose: 1 ampul Chlorhexidine Gluconate (Chlorhexidine 2% Cloth) 3 pack TOPICAL DAILY@0400 [facility] Stop: 06/30/18 03:59 Last Admin: 06/27/18 04:10 Dose: 3 pack Chlorhexidine Gluconate (Chlorhexidine 2% Cloth) 3 pack TOPICAL DAILY@0400 PRN PRN Reason: Extra cloth needed Stop: 06/30/18 03:59 Chlorhexidine Gluconate (Peridex 0.12% Oral Kit) 15 ml OROPHARYNG BID@0800, 2000 [facility] Last Admin: 06/27/18 09:10 Dose: 15 ml Famotidine (Pepcid) 20 mg NG/OG BID [facility] Last Admin: 06/27/18 09:31 Dose: 20 mg Sodium Chloride (Ns Inj) 1,000 mls @ 125 mls/hr IV.CONT .Q8H [facility] Last Infusion: 06/27/18 08:00 Dose: 125 mls/hr Propofol (Diprivan 1000 Mg/100 Ml Inj) 1,000 mg in 100 mls @ 2.585 mls/hr IV.CONT TITRATE PRN; Protocol PRN Reason: Per Protocol Last Titration: 06/27/18 09:35 Dose: 10 mcg/kg/min, 5.17 mls/hr Levetiracetam (Keppra 1000 Mg/100 Ml Premix) 100 mls @ 400 mls/hr IV.SIG Q12H [facility] Last Admin: 06/27/18 09:31 Dose: 400 mls/hr Valproate Sodium 750 mg/ (Sodium Chloride) 107.5 mls @ 105 mls/hr IV.SIG Q8HR [facility] Last Infusion: 06/27/18 06:30 Dose: Infused Nicardipine/Sodium Chloride (Cardene 20 Mg/Ns 200 Ml Premix) 20 mg in 200 mls @ 50 mls/hr IV.SIG TITRATE PRN; Protocol PRN Reason: Per Protocol Miscellaneous Medication () 1 each OROPHARYNG 0000,0400,1200,1600 [facility] Last Admin: 06/27/18 04:10 Dose: 1 each Morphine Sulfate (Morphine Inj) 4 mg IV.PUSH Q4H PRN PRN Reason: PAIN SCALE 6 TO 10 IF NOT RUI Last Admin: 06/24/18 14:31 Dose: 4 mg Morphine Sulfate (Morphine Inj) 2 mg IV.PUSH Q4H PRN PRN Reason: PAIN 1 TO 5 IF NOT RUI PO Last Admin: 06/26/18 22:30 Dose: 2 mg Sodium Chloride (Ns Flush) 2 ml IV.FLUSH PRN PRN PRN Reason: FLUSH AFTER USING IV ACCESS Last Admin: 06/24/18 08:15 Dose: 2 ml Thiamine HCl (Vitamin B1) 100 mg PO DAILY [facility] Last Admin: 06/26/18 08:22 Dose: 100 mg Allergies/Adverse Reactions: Allergies Allergy/AdvReac Type Severity Reaction Status Date / Time strawberry Allergy Unknown Swelling Verified 06/24/18 08:08 Physical Exam Vital signs: Vital Signs 06/26/18 10:00 06/26/18 10:13 06/26/18 10:26 Temperature Pulse Rate 65 64 64 Respiratory Rate 27 H 26 H 17 Blood Pressure 136/77 Pulse Oximetry 100 100 100 06/26/18 11:00 06/26/18 11:13 06/26/18 12:00 Temperature Pulse Rate 62 62 61 Respiratory Rate 28 H 24 23 Blood Pressure 147/78 H Pulse Oximetry 100 100 100 06/26/18 12:13 06/26/18 13:00 06/26/18 13:13 Temperature Pulse Rate 60 63 60 Respiratory Rate 22 23 19 Blood Pressure 151/80 H 150/78 H Pulse Oximetry 100 100 100 06/26/18 14:00 06/26/18 14:13 06/26/18 15:00 Temperature Pulse Rate 62 65 63 Respiratory Rate 21 19 19 Blood Pressure 161/82 H Pulse Oximetry 100 100 100 06/26/18 15:13 06/26/18 16:00 06/26/18 16:13 Temperature Pulse Rate 61 58 L 58 L Respiratory Rate 19 21 19 Blood Pressure 150/79 H 140/73 Pulse Oximetry 100 100 100 06/26/18 17:00 06/26/18 17:57 06/26/18 18:00 Temperature Pulse Rate 59 L 65 70 Respiratory Rate 19 24 21 Blood Pressure 151/79 H Pulse Oximetry 100 100 100 06/26/18 18:13 06/26/18 18:14 06/26/18 19:00 Temperature Pulse Rate 67 68 63 Respiratory Rate 21 19 20 Blood Pressure 152/74 H Pulse Oximetry 100 100 100 06/26/18 19:13 06/26/18 20:00 06/26/18 20:13 Temperature 97.8 F Pulse Rate 63 59 L 62 Respiratory Rate 17 16 22 Blood Pressure 147/75 H 138/72 Pulse Oximetry 100 100 100 06/26/18 21:00 06/26/18 21:13 06/26/18 21:26 Temperature Pulse Rate 62 61 59 L Respiratory Rate 18 18 16 Blood Pressure 155/77 H Pulse Oximetry 100 100 100 06/26/18 22:00 06/26/18 22:13 06/26/18 23:00 Temperature Pulse Rate 69 69 65 Respiratory Rate 19 23 16 Blood Pressure 166/81 H Pulse Oximetry 100 100 100 06/26/18 23:13 06/26/18 23:55 06/27/18 00:00 Temperature 98.6 F Pulse Rate 64 59 L Respiratory Rate 16 16 16 Blood Pressure 126/70 Pulse Oximetry 100 100 100 06/27/18 00:13 06/27/18 01:00 06/27/18 01:13 Temperature Pulse Rate 57 L 58 L 57 L Respiratory Rate 16 16 16 Blood Pressure 120/68 151/79 H Pulse Oximetry 100 100 100 06/27/18 02:00 06/27/18 02:13 06/27/18 03:00 Temperature Pulse Rate 57 L 57 L 55 L Respiratory Rate 16 16 16 Blood Pressure 131/75 Pulse Oximetry 100 100 100 06/27/18 03:13 06/27/18 03:57 06/27/18 03:58 Temperature Pulse Rate 60 58 L Respiratory Rate 16 16 16 Blood Pressure 143/77 H Pulse Oximetry 100 100 06/27/18 04:00 06/27/18 04:13 06/27/18 05:00 Temperature 97.8 F Pulse Rate 63 61 60 Respiratory Rate 17 16 16 Blood Pressure 161/83 H Pulse Oximetry 100 100 100 06/27/18 05:13 06/27/18 06:00 06/27/18 06:13 Temperature Pulse Rate 59 L 61 63 Respiratory Rate 16 16 21 Blood Pressure 165/80 H 163/78 H Pulse Oximetry 100 100 100 06/27/18 07:00 06/27/18 08:00 06/27/18 09:00 Temperature 97.1 F L Pulse Rate 59 L 61 69 Respiratory Rate 16 17 23 Blood Pressure 160/79 H 167/92 H Pulse Oximetry 100 100 100 06/27/18 09:08 Temperature Pulse Rate 68 Respiratory Rate 8 L Blood Pressure Pulse Oximetry 100 Intake & Output 06/26/18 06/27/18 06/27/18 18:59 06:59 18:59 Intake Total 1862.5 / 1862.5 2262.0 / 2262.0 Output Total 1315 / 1315 1115 / 1115 Balance 547.5 / 547.5 1147.0 / 1147.0 Weight 85.2 kg Intake: IV 1407.5 / 1407.5 1615.0 / 1615.0 Diprivan 1000 mg/100 ml Inj 1, 200 / 200 300 / 300 000 mg In 100 ml @ 5 MCG/KG/MIN 2.585 mls/hr IV.CONT TITRATE PRN Rx#:[id number] NS Inj 1,000 ML @ 125 mls/hr IV 1000 / 1000 1000 / 1000 .CONT .Q8H [facility] Rx#:[id number] Depacon Inj 750 MG In NS Inj 107.5 / 107.5 215.0 / 215.0 100 ML @ 105 mls/hr IV.SIG Q8HR [facility] Rx#:[id number] Keppra 1000 mg/100 mL Premix 100 / 100 100 / 100 100 ML @ 400 mls/hr IV.SIG Q12H [facility] Rx#:[id number] Tube Feeding 395 / 395 647 / 647 Tube Irrigant 60 / 60 Output: Urine Amount (Catheter) 1200 / 1200 1000 / 1000 Indwelling Urethral Catheter 1200 / 1200 1000 / 1000 Intracranial Drainage 115 / 115 115 / 115 Right Temporoparietal 115 / 115 115 / 115 Other: # Bowel Movements 0 Narrative: fully sedated on dip pupil = toes mute no change - Urinary Catheter Management Indwelling Urethral Catheter Cath placed during this visit: yes Reason for continuing: Acute urinary retention Insertion date: 06/24/18 Insertion time: 09:50 Objective Microbiology 06/24/18 08:20 Urine Culture - Final Clean Catch Urine No growth in 48 hours Review/Management - Diagnosis (1) Encephalomalacia Code(s): G93.89 - Other specified disorders of brain Status: Acute Current Visit: Yes (2) Dementia Code(s): F03.90 - Unspecified dementia without behavioral disturbance Status: Acute Current Visit: Yes (3) Intractable seizure disorder Code(s): G40.919 - Epilepsy, unspecified, intractable, without status epilepticus Status: Acute Current Visit: Yes (4) ICH (intracerebral hemorrhage) Code(s): I61.9 - Nontraumatic intracerebral hemorrhage, unspecified Status: Acute Current Visit: Yes - Review/Management Plan: Intracranial hemorrhage. 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
[2018-06-27] MEDS: niCARdipine 20mg/NS Premix 20 MG/200 ML PIGGYBACK IV.SIG PRN ×4 (11:09→19:03)
--- NOTE | 2018-06-27 15:08 | P.PNCC ---
Subjective Subjective Remarks/Hospital Course: 06/24: 67-year-old male with a medical history significant for dementia, seizure disorder, previous stroke, hypertension who [facility] after he had multiple seizures this morning. On arrival in the ER he appeared to be seizing and was intubated by ER physician and placed on mechanical ventilation and sedated with propofol. Head CT done in the ER revealed left frontal intraparenchymal bleed with subdural hemorrhage. Patient was also noted to have a left humerus neck fracture on x-ray. He reportedly has [facility] the [facility]. Patient has been on Eliquis at home and he received K Centra following arrival to the ER for reversal. 06/25: Remains sedated, orally intubated on mechanical ventilation. Head CT done today with new area of small subdural hemorrhage and increase in size of intraventricular hemorrhage, intraparenchymal hemorrhage same size. 06/26: Remains sedated, orally intubated on mechanical ventilation. Repeat head CT shows slight worsening of intra-cerebral hemorrhage yesterday. 06/27: Remains sedated, orally intubated on mechanical ventilation. Objective Vital Signs / I&O: Vital Signs 06/26/18 15:13 06/26/18 16:00 06/26/18 16:13 Temperature Pulse Rate 61 58 L 58 L Respiratory Rate 19 21 19 Blood Pressure 150/79 H 140/73 Pulse Oximetry 100 100 100 06/26/18 17:00 06/26/18 17:57 06/26/18 18:00 Temperature Pulse Rate 59 L 65 70 Respiratory Rate 19 24 21 Blood Pressure 151/79 H Pulse Oximetry 100 100 100 06/26/18 18:13 06/26/18 18:14 06/26/18 19:00 Temperature Pulse Rate 67 68 63 Respiratory Rate 21 19 20 Blood Pressure 152/74 H Pulse Oximetry 100 100 100 06/26/18 19:13 06/26/18 20:00 06/26/18 20:13 Temperature 97.8 F Pulse Rate 63 59 L 62 Respiratory Rate 17 16 22 Blood Pressure 147/75 H 138/72 Pulse Oximetry 100 100 100 06/26/18 21:00 06/26/18 21:13 06/26/18 21:26 Temperature Pulse Rate 62 61 59 L Respiratory Rate 18 18 16 Blood Pressure 155/77 H Pulse Oximetry 100 100 100 06/26/18 22:00 06/26/18 22:13 06/26/18 23:00 Temperature Pulse Rate 69 69 65 Respiratory Rate 19 23 16 Blood Pressure 166/81 H Pulse Oximetry 100 100 100 06/26/18 23:13 06/26/18 23:55 06/27/18 00:00 Temperature 98.6 F Pulse Rate 64 59 L Respiratory Rate 16 16 16 Blood Pressure 126/70 Pulse Oximetry 100 100 100 06/27/18 00:13 06/27/18 01:00 06/27/18 01:13 Temperature Pulse Rate 57 L 58 L 57 L Respiratory Rate 16 16 16 Blood Pressure 120/68 151/79 H Pulse Oximetry 100 100 100 06/27/18 02:00 06/27/18 02:13 06/27/18 03:00 Temperature Pulse Rate 57 L 57 L 55 L Respiratory Rate 16 16 16 Blood Pressure 131/75 Pulse Oximetry 100 100 100 06/27/18 03:13 06/27/18 03:57 06/27/18 03:58 Temperature Pulse Rate 60 58 L Respiratory Rate 16 16 16 Blood Pressure 143/77 H Pulse Oximetry 100 100 06/27/18 04:00 06/27/18 04:13 06/27/18 05:00 Temperature 97.8 F Pulse Rate 63 61 60 Respiratory Rate 17 16 16 Blood Pressure 161/83 H Pulse Oximetry 100 100 100 06/27/18 05:13 06/27/18 06:00 06/27/18 06:13 Temperature Pulse Rate 59 L 61 63 Respiratory Rate 16 16 21 Blood Pressure 165/80 H 163/78 H Pulse Oximetry 100 100 100 06/27/18 07:00 06/27/18 08:00 06/27/18 09:00 Temperature 97.1 F L Pulse Rate 59 L 61 69 Respiratory Rate 16 17 23 Blood Pressure 160/79 H 167/92 H Pulse Oximetry 100 100 100 06/27/18 09:08 06/27/18 10:00 06/27/18 11:00 Temperature Pulse Rate 68 67 77 Respiratory Rate 8 L 7 L 10 L Blood Pressure 165/85 H 157/77 H Pulse Oximetry 100 100 100 06/27/18 11:30 06/27/18 11:45 06/27/18 12:00 Temperature 98.8 F Pulse Rate 83 87 89 Respiratory Rate 11 L 14 11 L Blood Pressure 153/71 H 147/74 H 144/76 H Pulse Oximetry 100 100 100 06/27/18 12:15 06/27/18 12:30 06/27/18 13:00 Temperature Pulse Rate 80 80 87 Respiratory Rate 7 L 7 L 7 L Blood Pressure 125/62 130/61 134/67 Pulse Oximetry 100 100 100 Intake & Output 06/26/18 06/27/18 06/27/18 18:59 06:59 18:59 Intake Total 1862.5 / 1862.5 2262.0 / 2262.0 350 / 350 Output Total 1315 / 1315 1115 / 1115 Balance 547.5 / 547.5 1147.0 / 1147.0 350 / 350 Weight 85.2 kg Intake: IV 1407.5 / 1407.5 1615.0 / 1615.0 300 / 300 Diprivan 1000 mg/100 ml Inj 1, 200 / 200 300 / 300 000 mg In 100 ml @ 5 MCG/KG/MIN 2.585 mls/hr IV.CONT TITRATE PRN Rx#:[id number] NS Inj 1,000 ML @ 125 mls/hr IV 1000 / 1000 1000 / 1000 0 / 0 .CONT .Q8H [facility] Rx#:[id number] Depacon Inj 750 MG In NS Inj 107.5 / 107.5 215.0 / 215.0 100 ML @ 105 mls/hr IV.SIG Q8HR [facility] Rx#:[id number] Keppra 1000 mg/100 mL Premix 100 / 100 100 / 100 100 / 100 100 ML @ 400 mls/hr IV.SIG Q12H [facility] Rx#:[id number] Cardene 20 mg/NS 200 ml Premix 200 / 200 20 mg In 200 ml @ 5 MG/HR 50 mls/hr IV.SIG TITRATE PRN Rx#: [id number] Tube Feeding 395 / 395 647 / 647 Tube Irrigant 60 / 60 Water Bolus Amount 50 / 50 Output: Urine Amount (Catheter) 1200 / 1200 1000 / 1000 Indwelling Urethral Catheter 1200 / 1200 1000 / 1000 Intracranial Drainage 115 / 115 115 / 115 Right Temporoparietal 115 / 115 115 / 115 Other: # Bowel Movements 0 Result Diagrams: 06/25/18 04:58 06/25/18 21:00 Objective Remarks: HEENT/ Neuro: Sedated, orally intubated, Pallor present, no icterus, tongue/ mucosa moist. Pupils 3 mm bilaterally reactive Neck: No JVD Chest/Pulm: on mech vent, good air entry bilaterally, no wheezing or crackles CVS: S1-S2 regular, no murmur GI/abdomen: soft, nontender, bowel sounds sluggish Extremities: warm bilaterally, no edema. Assessment and Plan - Assessment and Plan Plan: 67-year-old male with: Status epilepticus ICH/SDH Acute respiratory failure on mechanical ventilation Left humerus fracture History of dementia History of stroke Hypertension Plan: Neuro: Sedation with propofol. Keppra 1 g IV every 12 hourly. Valproate 500 mg IV every 8 hourly switched from p.o. dose at home. Follow valproate level. EEG did not reveal seizure activity. Neurology consult noted. Neurosurgery following for ICH, discussed with Dr. Jones - s/p ventriculostomy 06/24. ICPs normal. Cardiovascular: IV hydration, watch for hypotension. Hold antihypertensives at this time. Pulmonary: Continue mechanical ventilation, vent bundle, bronchodilators as needed. Patient will be kept intubated with no sedation vacation to seizures controlled. GI/liver: Tolerating tube feeds Renal/: IV hydration, strict intake, monitor and replete electrolytes, follow BUN and creatinine. MSK: Orthopedics consult for left humerus fracture noted - nonoperative management. ID: No indication for antibiotics at this time. Watch for sepsis. Endocrine: SSI for glycemic control if needed Heme: Follow CBC. Received K Centra to reverse Eliquis in the ER. Prophylaxis: Pepcid/SCDs. Palliative care following. Patient is DNR status at this time. Condition critical Time spent on critical care excluding procedures 30 minutes
[2018-06-27] MEDS: Morphine Inj 4 MG/ML Vial IV.PUSH PRN (20:24)
[2018-06-27] MEDS: niCARdipine Inj 25 MG in Sodium Chlor 0.9% Inj 250 ML IV.CONT PRN (21:23)
[2018-06-28] MEDS: niCARdipine Inj 25 MG in Sodium Chlor 0.9% Inj 250 ML IV.CONT PRN ×7 (00:04→15:19)
[2018-06-28] MEDS: Morphine Inj 4 MG/ML Vial IV.PUSH PRN (00:26)
[2018-06-28] MEDS: Oral Hygiene Kit OROPHARYNG SCH ×4 (02:29→17:09)
[2018-06-28] MEDS: Sod Chloride 0.9% Inj 1,000 ML IV.CONT SCH ×4 (02:39→17:09)
[2018-06-28] MEDS: Chlorhexidine Gluconate 2% 1 Pack (2 Cloths) TOPICAL SCH (04:38)
--- NOTE | 2018-06-28 05:48 | CT ---
EXAM DATE: 06/28/2018 5:08 AM EST AGE/SEX: 67 years / Male INDICATIONS: Intracerebral hemorrhage. CLINICAL DATA: This is the patient's initial encounter. Patient reports that signs and symptoms have been present for 1 day and indicates a pain score of Nonresponsive. MEDICAL/SURGICAL HISTORY: Stroke. Deep venous thrombosis. Dementia. Seizure. Hypertension. Stoner Hand niotomy. RADIATION DOSE: 56.35 CTDI (mGy) COMPARISON: [facility] [place], CT HEAD W/O CONTRAST, 06/25/2018. . TECHNIQUE: CT of the head without contrast. Using automated exposure control and adjustment of the mA and/or kV according to patient size, radiation dose was kept as low as reasonably achievable to ob tain optimal diagnostic quality images. DICOM format image data is available electronically for revi ew and comparison. FINDINGS: Again seen is a small interhemispheric subdural hematoma. Intraventricular hemorrhage and parenchymal hemorrhage on the right are fairly stable. Right frontal ventriculostomy unchanged. Stable encephalo malacia. No acute bony abnormality. CONCLUSION: 1. Essentially stable exam since June 25 with intra-axial and extra-axial hemorrhage as above. . Electronically signed by: Kaveh Gary MD 06/28/2018 5:47 AM EST
[2018-06-28 06:45] LABS: Alanine Aminotransferase 19 U/L (12-78); Albumin 2.6 g/dL (3.4-5.0); Anion Gap 6 meq/L (5-15); Aspartate Aminotransferase 16 U/L (15-37); Blood Urea Nitrogen 7 mg/dL (7-18); Calcium 8.2 mg/dL (8.5-10.1); Carbon Dioxide 28.3 meq/L (21.0-32.0); Chloride 110 meq/L (98-107); Glomerular Filtration Rate Greater Than 89 mL/min (>89); Glucose,Random 101 mg/dL (74-106); Potassium 3.7 meq/L (3.5-5.1); Sodium 144 meq/L (136-145)
[2018-06-28 06:48] LABS: Alkaline Phosphatase 78 U/L (45-117); Total Protein 6.4 g/dL (6.4-8.2)
[2018-06-28] MEDS: Valproate Inj 750 MG in Sodium Chlor 0.9% Inj 100 ML IV.SIG SCH ×3 (06:52→21:30)
[2018-06-28 07:12] LABS: Baso % (Auto) 0.3 % (0.0-2.0); Eos # (Auto) 0.1 th/mm3 (0.0-0.4); Eos % (Auto) 0.7 % (0.0-4.0); Hematocrit 36.5 % (39.0-51.0); Hemoglobin 12.4 gm/dL (13.0-17.0); Lymph # (Auto) 1.1 th/mm3 (1.0-4.8); Lymph % (Auto) 12.8 % (9.0-44.0); Mean Corpuscular HGB Conc 33.9 % (32.0-36.0); Mean Corpuscular Hemoglobin 32.4 pg (27.0-34.0); Mean Corpuscular Volume 95.6 fL (80.0-100.0); Mean Platelet Volume 7.5 fL (7.0-11.0); Mono # (Auto) 1.2 th/mm3 (0.0-0.9); Mono % (Auto) 14.6 % (0.0-8.0); Neut % (Auto) 71.6 % (16.0-70.0); Platelet Count 140 th/mm3 (150-450); Red Blood Count 3.82 mil/mm3 (4.50-5.90); Red Cell Distribution Width 12.5 % (11.6-17.2); White Blood Count 8.4 th/mm3 (4.0-11.0)
[2018-06-28] MEDS ORDERED: Midazolam Inj 5 MG/ML 1 ML Vial ONE (07:16)
[2018-06-28] MEDS ORDERED: Midazolam Inj 5 MG/ML 1 ML Vial IV.PUSH ONE (08:15)
--- NOTE | 2018-06-28 08:17 | P.PNCC ---
Subjective Subjective Remarks/Hospital Course: 06/24: 67-year-old male with a medical history significant for dementia, seizure disorder, previous stroke, hypertension who was brought to the ER from assisted after he had multiple seizures this morning. On arrival in the ER he appeared to be seizing and was intubated by ER physician and placed on mechanical ventilation and sedated with propofol. Head CT done in the ER revealed left frontal intraparenchymal bleed with subdural hemorrhage. Patient was also noted to have a left humerus neck fracture on x-ray. He reportedly has been falling at the assisted multiple times. Patient has been on Eliquis at home and he received K Centra following arrival to the ER for reversal. 06/25: Remains sedated, orally intubated on mechanical ventilation. Head CT done today with new area of small subdural hemorrhage and increase in size of intraventricular hemorrhage, intraparenchymal hemorrhage same size. 06/26: Remains sedated, orally intubated on mechanical ventilation. Repeat head CT shows slight worsening of intra-cerebral hemorrhage yesterday. 06/27: Remains sedated, orally intubated on mechanical ventilation. 06/28: Endotracheal tube dislodged, replaced this morning. Oxygen saturation remained at 100% throughout. Withdraws for limbs and localizes all to pain. No obvious seizure activity. Not alert enough to extubate. Objective Vital Signs / I&O: Vital Signs 06/27/18 09:00 06/27/18 09:08 06/27/18 10:00 Temperature Pulse Rate 69 68 67 Respiratory Rate 23 8 L 7 L Blood Pressure 165/85 H Pulse Oximetry 100 100 100 06/27/18 11:00 06/27/18 11:30 06/27/18 11:45 Temperature Pulse Rate 77 83 87 Respiratory Rate 10 L 11 L 14 Blood Pressure 157/77 H 153/71 H 147/74 H Pulse Oximetry 100 100 100 06/27/18 12:00 06/27/18 12:15 06/27/18 12:30 Temperature 98.8 F Pulse Rate 89 80 80 Respiratory Rate 11 L 7 L 7 L Blood Pressure 144/76 H 125/62 130/61 Pulse Oximetry 100 100 100 06/27/18 12:45 06/27/18 13:00 06/27/18 13:15 Temperature Pulse Rate 85 87 84 Respiratory Rate 8 L 7 L 7 L Blood Pressure 127/62 134/67 127/62 Pulse Oximetry 100 100 100 06/27/18 13:30 06/27/18 13:45 06/27/18 14:00 Temperature Pulse Rate 81 83 81 Respiratory Rate 8 L 9 L 8 L Blood Pressure 128/60 128/61 130/62 Pulse Oximetry 100 100 100 06/27/18 14:15 06/27/18 14:30 06/27/18 14:45 Temperature Pulse Rate 80 80 95 H Respiratory Rate 8 L 8 L 13 Blood Pressure 126/60 124/58 L 124/60 Pulse Oximetry 100 100 100 06/27/18 15:00 06/27/18 15:15 06/27/18 15:30 Temperature Pulse Rate 104 H 100 H 96 H Respiratory Rate 19 23 14 Blood Pressure 152/72 H 130/65 133/68 Pulse Oximetry 100 100 100 06/27/18 15:40 06/27/18 15:45 06/27/18 16:00 Temperature 100.5 F H Pulse Rate 102 H 105 H 93 H Respiratory Rate 20 21 12 Blood Pressure 141/65 H 133/63 Pulse Oximetry 100 100 100 06/27/18 16:15 06/27/18 16:30 06/27/18 16:45 Temperature Pulse Rate 96 H 97 H 92 H Respiratory Rate 22 19 20 Blood Pressure 132/63 129/64 130/68 Pulse Oximetry 100 100 100 06/27/18 17:00 06/27/18 17:15 06/27/18 17:30 Temperature Pulse Rate 89 101 H 103 H Respiratory Rate 24 27 H 22 Blood Pressure 132/62 134/66 143/74 H Pulse Oximetry 100 100 100 06/27/18 17:45 06/27/18 18:00 06/27/18 18:15 Temperature Pulse Rate 101 H 102 H 93 H Respiratory Rate 27 H 29 H 19 Blood Pressure 135/72 154/67 H 130/62 Pulse Oximetry 100 99 100 06/27/18 18:30 06/27/18 18:45 06/27/18 19:00 Temperature Pulse Rate 97 H 99 H 96 H Respiratory Rate 20 20 16 Blood Pressure 130/62 135/66 148/71 H Pulse Oximetry 100 100 100 06/27/18 19:15 06/27/18 19:30 06/27/18 19:45 Temperature Pulse Rate 100 H 102 H 108 H Respiratory Rate 19 22 21 Blood Pressure 163/66 H 154/65 H 163/74 H Pulse Oximetry 100 100 100 06/27/18 20:00 06/27/18 20:15 06/27/18 20:30 Temperature 100.7 F H Pulse Rate 101 H 136 H 100 H Respiratory Rate 23 23 18 Blood Pressure 143/76 H 136/71 147/73 H Pulse Oximetry 100 100 100 06/27/18 20:45 06/27/18 21:00 06/27/18 21:06 Temperature 100.7 F H Pulse Rate 102 H 105 H Respiratory Rate 21 25 H 18 Blood Pressure 142/66 H 131/60 Pulse Oximetry 100 100 100 06/27/18 21:08 06/27/18 22:00 06/27/18 23:00 Temperature Pulse Rate 90 97 H 84 Respiratory Rate 16 18 16 Blood Pressure 143/61 H 172/84 H Pulse Oximetry 100 100 06/27/18 23:38 06/28/18 00:00 06/28/18 01:00 Temperature 99.2 F Pulse Rate 92 H 80 Respiratory Rate 20 22 16 Blood Pressure 164/78 H 160/73 H Pulse Oximetry 100 100 100 06/28/18 02:00 06/28/18 03:00 06/28/18 03:37 Temperature Pulse Rate 85 103 H 98 H Respiratory Rate 16 23 19 Blood Pressure 150/69 H 157/68 H Pulse Oximetry 100 100 100 06/28/18 04:00 Temperature 99.2 F Pulse Rate 108 H Respiratory Rate 20 Blood Pressure 114/55 L Pulse Oximetry 100 Intake & Output 06/27/18 06/28/18 06/28/18 18:59 06:59 18:59 Intake Total 657.5 / 657.5 2617.5 / 2617.5 Output Total 1531 / 1531 Balance -873.5 / -873.5 2617.5 / 2617.5 Intake: IV 607.5 / 607.5 2617.5 / 2617.5 NS Inj 1,000 ML @ 125 mls/hr IV 0 / 0 1000 / 1000 .CONT .Q8H [facility] Rx#:[id number] Cardene Inj 25 MG In NS Inj 250 1010 / 1010 ML @ 0 mls/hr IV.CONT TITRATE PRN Rx#:[id number] Depacon Inj 750 MG In NS Inj 107.5 / 107.5 107.5 / 107.5 100 ML @ 105 mls/hr IV.SIG Q8HR [facility] Rx#:[id number] Keppra 1000 mg/100 mL Premix 100 / 100 100 / 100 100 ML @ 400 mls/hr IV.SIG Q12H [facility] Rx#:[id number] Cardene 20 mg/NS 200 ml Premix 400 / 400 400 / 400 20 mg In 200 ml @ 5 MG/HR 50 mls/hr IV.SIG TITRATE PRN Rx#: [id number] Water Bolus Amount 50 / 50 Output: Urine Amount (Catheter) 1425 / 1425 Indwelling Urethral Catheter 1425 / 1425 Intracranial Drainage 106 / 106 Right Temporoparietal 106 / 106 Result Diagrams: 06/28/18 06:16 06/28/18 06:16 Objective Remarks: HEENT/ Neuro: No sedation, orally intubated, Pallor present, no icterus, tongue / mucosa moist. Pupils 3 mm bilaterally reactive. Localizes for 4 limbs. Neck: No JVD. Orotracheal intubation. Chest/Pulm: On mech vent, good air entry bilaterally, no wheezing or crackles. Lots of clear watery secretions. CVS: S1-S2 regular, no murmur, no JVD. GI/abdomen: soft, nontender, bowel sounds present, no guarding. Extremities: warm bilaterally, no edema. Assessment and Plan - Assessment and Plan Plan: 67-year-old male with: Status epilepticus ICH/SDH Acute respiratory failure on mechanical ventilation Left humerus fracture History of dementia History of stroke Hypertension Plan: Neuro: Hold sedation. Keppra 1 g IV every 12 hourly. Valproate 500 mg IV every 8 hourly switched from p.o. dose at home. Follow valproate level. EEG did not reveal seizure activity. Neurology consult noted. Neurosurgery following for ICH, discussed with Dr. Jones - s/p ventriculostomy 06/24. ICPs normal. Cardiovascular: IV hydration, watch for hypotension. Hold antihypertensives at this time. Pulmonary: Continue mechanical ventilation, vent bundle, bronchodilators as needed. Orotracheal tube replaced. GI/liver: Tolerating tube feeds, follow prealbumin weekly. Renal/: IV hydration, strict intake, monitor and replete electrolytes, follow BUN and creatinine. MSK: Orthopedics consult for left humerus fracture noted - nonoperative management. ID: No indication for antibiotics at this time. Watch for sepsis. Endocrine: SSI for glycemic control if needed Heme: Follow CBC. Received K Centra to reverse Eliquis in the ER. Prophylaxis: Pepcid/SCDs. Palliative care following. Patient is DNR status at this time. Overall impression: Patient remains critically ill, requiring intubation and mechanical ventilation for treatment of the severe neurologic encephalopathy. Seizure activity appears to have been controlled. Unable to wean from ventilator. Critical care time 38 minutes aside from procedures.
--- NOTE | 2018-06-28 08:21 | P.PCN ---
Procedure: Diagnosis: Acute respiratory failure Procedure: Manda tracheal intubation with #8 cuffed tube Narrative: I was called to see patient for large air leak in the neck associated with mechanical ventilation. Direct inspection revealed the endotracheal tube cuff above the level of the vocal cords. I was not able to advance the tube directly because of the softness of the tube at body temperature. A tube exchanger was passed through the indwelling tube into the trachea and the old tube was removed. A new #8 tube was delivered over the tube exchanger into the main trachea and the cuff inflated. CO2 detection confirmed tracheal positioning. Good bilateral breath sounds were observed and oxygen saturation remained at 100%. Chest x-ray is ordered and I will review.
--- NOTE | 2018-06-28 08:37 | XR ---
EXAM DATE: 06/28/2018 8:30 AM EST AGE/SEX: 67 years / Male INDICATIONS: ET tube placement. CLINICAL DATA: This is the patient's subsequent encounter. Patient reports that signs and symptoms h ave been present for 4 - 6 days and indicates a pain score of Nonresponsive. MEDICAL/SURGICAL HISTORY: Non-responsive. Non-responsive. [place] [facility] [place]. . FINDINGS: ET tube and NG tube are well placed. The heart size is normal. There are some patchy density at the b ases being more prominent on the left. There is also some focal increased density seen over the right lateral upper chest. Some of this could be related to something overlying the patient. CONCLUSION: Mild bibasilar areas of consolidation or atelectasis being worse than left. Electronically signed by: Jose Morocho MD 06/28/2018 8:36 AM EST
[2018-06-28 09:28] LABS: Eosinophils 2 % (0-4); Lymphocytes 12 % (9-44); Monocytes 16 % (0-8)
[2018-06-28 09:29] LABS: Platelet Morphology Normal (Normal)
[2018-06-28] MEDS: Famotidine 20 MG Tablet NG/OG SCH ×2 (10:34→20:56)
[2018-06-28] MEDS: Chlorhexidine 0.12% Oral Kit 15 ML UDC OROPHARYNG SCH ×2 (10:35→19:53)
[2018-06-28] MEDS: levETIRAcetam 1000mg/100mL Inj 100 ML IV.SIG SCH ×2 (10:35→19:52)
[2018-06-28] MEDS: QUEtiapine 25 MG Tablet PO SCH (10:36)
--- NOTE | 2018-06-28 10:39 | P.PNNEU ---
Subjective Active Medications: Active Medications Acetaminophen (Tylenol) 650 mg PO Q6H PRN PRN Reason: PAIN 1-10 AND/OR FEVER >101F Albuterol (Duoneb Neb (Prn)) 1 ampul NEB Q4HR NEB PRN PRN Reason: SHORTNESS OF BREATH Albuterol (Duoneb Neb (Eduardo)) 1 ampul NEB Q6HR NEB [facility] Last Admin: 06/28/18 08:58 Dose: 1 ampul Chlorhexidine Gluconate (Chlorhexidine 2% Cloth) 3 pack TOPICAL DAILY@0400 [facility] Stop: 06/30/18 03:59 Last Admin: 06/28/18 04:38 Dose: 3 pack Chlorhexidine Gluconate (Chlorhexidine 2% Cloth) 3 pack TOPICAL DAILY@0400 PRN PRN Reason: Extra cloth needed Stop: 06/30/18 03:59 Chlorhexidine Gluconate (Peridex 0.12% Oral Kit) 15 ml OROPHARYNG BID@0800, 2000 [facility] Last Admin: 06/27/18 21:05 Dose: 15 ml Famotidine (Pepcid) 20 mg NG/OG BID [facility] Last Admin: 06/27/18 21:04 Dose: 20 mg Sodium Chloride (Ns Inj) 1,000 mls @ 125 mls/hr IV.CONT .Q8H [facility] Last Admin: 06/28/18 02:39 Dose: 125 mls/hr Propofol (Diprivan 1000 Mg/100 Ml Inj) 1,000 mg in 100 mls @ 2.585 mls/hr IV.CONT TITRATE PRN; Protocol PRN Reason: Per Protocol Last Titration: 06/27/18 10:45 Dose: 0 mcg/kg/min, 0 mls/hr Levetiracetam (Keppra 1000 Mg/100 Ml Premix) 100 mls @ 400 mls/hr IV.SIG Q12H [facility] Last Infusion: 06/27/18 21:19 Dose: Infused Valproate Sodium 750 mg/ (Sodium Chloride) 107.5 mls @ 105 mls/hr IV.SIG Q8HR [facility] Last Admin: 06/28/18 06:52 Dose: 105 mls/hr Nicardipine HCl 25 mg/ Sodium (Chloride) 260 mls @ 0 mls/hr IV.CONT TITRATE PRN ; Protocol PRN Reason: BLOOD PRESSURE MANAGEMENT Last Admin: 06/28/18 06:53 Dose: 12.5 mls/hr Miscellaneous Medication () 1 each OROPHARYNG 0000,0400,1200,1600 [facility] Last Admin: 06/28/18 04:38 Dose: 1 each Morphine Sulfate (Morphine Inj) 4 mg IV.PUSH Q4H PRN PRN Reason: PAIN SCALE 6 TO 10 IF NOT RUI Last Admin: 06/28/18 00:26 Dose: 4 mg Morphine Sulfate (Morphine Inj) 2 mg IV.PUSH Q4H PRN PRN Reason: PAIN 1 TO 5 IF NOT RUI PO Last Admin: 06/26/18 22:30 Dose: 2 mg Sodium Chloride (Ns Flush) 2 ml IV.FLUSH PRN PRN PRN Reason: FLUSH AFTER USING IV ACCESS Last Admin: 06/24/18 08:15 Dose: 2 ml Thiamine HCl (Vitamin B1) 100 mg PO DAILY [facility] Last Admin: 06/27/18 09:43 Dose: 100 mg Allergies/Adverse Reactions: Allergies Allergy/AdvReac Type Severity Reaction Status Date / Time strawberry Allergy Unknown Swelling Verified 06/24/18 08:08 Physical Exam Vital signs: Vital Signs 06/27/18 11:00 06/27/18 11:30 06/27/18 11:45 Temperature Pulse Rate 77 83 87 Respiratory Rate 10 L 11 L 14 Blood Pressure 157/77 H 153/71 H 147/74 H Pulse Oximetry 100 100 100 06/27/18 12:00 06/27/18 12:15 06/27/18 12:30 Temperature 98.8 F Pulse Rate 89 80 80 Respiratory Rate 11 L 7 L 7 L Blood Pressure 144/76 H 125/62 130/61 Pulse Oximetry 100 100 100 06/27/18 12:45 06/27/18 13:00 06/27/18 13:15 Temperature Pulse Rate 85 87 84 Respiratory Rate 8 L 7 L 7 L Blood Pressure 127/62 134/67 127/62 Pulse Oximetry 100 100 100 06/27/18 13:30 06/27/18 13:45 06/27/18 14:00 Temperature Pulse Rate 81 83 81 Respiratory Rate 8 L 9 L 8 L Blood Pressure 128/60 128/61 130/62 Pulse Oximetry 100 100 100 06/27/18 14:15 06/27/18 14:30 06/27/18 14:45 Temperature Pulse Rate 80 80 95 H Respiratory Rate 8 L 8 L 13 Blood Pressure 126/60 124/58 L 124/60 Pulse Oximetry 100 100 100 06/27/18 15:00 06/27/18 15:15 06/27/18 15:30 Temperature Pulse Rate 104 H 100 H 96 H Respiratory Rate 19 23 14 Blood Pressure 152/72 H 130/65 133/68 Pulse Oximetry 100 100 100 06/27/18 15:40 06/27/18 15:45 06/27/18 16:00 Temperature 100.5 F H Pulse Rate 102 H 105 H 93 H Respiratory Rate 20 21 12 Blood Pressure 141/65 H 133/63 Pulse Oximetry 100 100 100 06/27/18 16:15 06/27/18 16:30 06/27/18 16:45 Temperature Pulse Rate 96 H 97 H 92 H Respiratory Rate 22 19 20 Blood Pressure 132/63 129/64 130/68 Pulse Oximetry 100 100 100 06/27/18 17:00 06/27/18 17:15 06/27/18 17:30 Temperature Pulse Rate 89 101 H 103 H Respiratory Rate 24 27 H 22 Blood Pressure 132/62 134/66 143/74 H Pulse Oximetry 100 100 100 06/27/18 17:45 06/27/18 18:00 06/27/18 18:15 Temperature Pulse Rate 101 H 102 H 93 H Respiratory Rate 27 H 29 H 19 Blood Pressure 135/72 154/67 H 130/62 Pulse Oximetry 100 99 100 06/27/18 18:30 06/27/18 18:45 06/27/18 19:00 Temperature Pulse Rate 97 H 99 H 96 H Respiratory Rate 20 20 16 Blood Pressure 130/62 135/66 148/71 H Pulse Oximetry 100 100 100 06/27/18 19:15 06/27/18 19:30 06/27/18 19:45 Temperature Pulse Rate 100 H 102 H 108 H Respiratory Rate 19 22 21 Blood Pressure 163/66 H 154/65 H 163/74 H Pulse Oximetry 100 100 100 06/27/18 20:00 06/27/18 20:15 06/27/18 20:30 Temperature 100.7 F H Pulse Rate 101 H 136 H 100 H Respiratory Rate 23 23 18 Blood Pressure 143/76 H 136/71 147/73 H Pulse Oximetry 100 100 100 06/27/18 20:45 06/27/18 21:00 06/27/18 21:06 Temperature 100.7 F H Pulse Rate 102 H 105 H Respiratory Rate 21 25 H 18 Blood Pressure 142/66 H 131/60 Pulse Oximetry 100 100 100 06/27/18 21:08 06/27/18 22:00 06/27/18 23:00 Temperature Pulse Rate 90 97 H 84 Respiratory Rate 16 18 16 Blood Pressure 143/61 H 172/84 H Pulse Oximetry 100 100 06/27/18 23:38 06/28/18 00:00 06/28/18 01:00 Temperature 99.2 F Pulse Rate 92 H 80 Respiratory Rate 20 22 16 Blood Pressure 164/78 H 160/73 H Pulse Oximetry 100 100 100 06/28/18 02:00 06/28/18 03:00 06/28/18 03:37 Temperature Pulse Rate 85 103 H 98 H Respiratory Rate 16 23 19 Blood Pressure 150/69 H 157/68 H Pulse Oximetry 100 100 100 06/28/18 04:00 06/28/18 05:00 06/28/18 06:00 Temperature 99.2 F Pulse Rate 108 H 92 H 95 H Respiratory Rate 20 18 18 Blood Pressure 114/55 L 162/72 H 129/61 Pulse Oximetry 100 100 100 06/28/18 06:30 06/28/18 06:45 06/28/18 07:00 Temperature Pulse Rate 85 84 100 H Respiratory Rate 16 16 17 Blood Pressure 143/67 H 146/65 H 145/56 H Pulse Oximetry 100 100 100 06/28/18 07:15 06/28/18 07:30 06/28/18 07:45 Temperature Pulse Rate 112 H 104 H 85 Respiratory Rate 19 25 H 16 Blood Pressure 135/62 142/60 H 127/65 Pulse Oximetry 100 97 99 06/28/18 08:00 06/28/18 08:15 06/28/18 08:30 Temperature 98.4 F Pulse Rate 82 85 81 Respiratory Rate 16 16 16 Blood Pressure 129/61 139/68 138/73 Pulse Oximetry 99 99 100 06/28/18 08:45 06/28/18 08:59 06/28/18 09:00 Temperature Pulse Rate 81 81 Respiratory Rate 16 16 16 Blood Pressure 139/65 142/70 H Pulse Oximetry 100 100 100 06/28/18 09:01 06/28/18 09:15 06/28/18 09:30 Temperature Pulse Rate 86 83 93 H Respiratory Rate 16 16 35 H Blood Pressure 149/70 H 132/63 Pulse Oximetry 100 100 06/28/18 09:45 06/28/18 10:00 06/28/18 10:15 Temperature Pulse Rate 86 83 83 Respiratory Rate 19 16 16 Blood Pressure 141/70 H 136/66 137/66 Pulse Oximetry 100 100 100 Intake & Output 06/27/18 06/28/18 06/28/18 18:59 06:59 18:59 Intake Total 657.5 / 657.5 3250.5 / 3250.5 Output Total 1531 / 1531 2711 / 2711 Balance -873.5 / -873.5 539.5 / 539.5 Weight 85.9 kg Intake: IV 607.5 / 607.5 2617.5 / 2617.5 NS Inj 1,000 ML @ 125 mls/hr IV 0 / 0 1000 / 1000 .CONT .Q8H [facility] Rx#:[id number] Cardene Inj 25 MG In NS Inj 250 1010 / 1010 ML @ 0 mls/hr IV.CONT TITRATE PRN Rx#:[id number] Depacon Inj 750 MG In NS Inj 107.5 / 107.5 107.5 / 107.5 100 ML @ 105 mls/hr IV.SIG Q8HR [facility] Rx#:[id number] Keppra 1000 mg/100 mL Premix 100 / 100 100 / 100 100 ML @ 400 mls/hr IV.SIG Q12H [facility] Rx#:[id number] Cardene 20 mg/NS 200 ml Premix 400 / 400 400 / 400 20 mg In 200 ml @ 5 MG/HR 50 mls/hr IV.SIG TITRATE PRN Rx#: [id number] Tube Feeding 633 / 633 Water Bolus Amount 50 / 50 Output: Urine Amount (Catheter) 1425 / 1425 2600 / 2600 Indwelling Urethral Catheter 1425 / 1425 2600 / 2600 Intracranial Drainage 106 / 106 111 / 111 Right Temporoparietal 106 / 106 111 / 111 Narrative: got 10 versed this am for tube change unresponsive now on vent - Urinary Catheter Management Indwelling Urethral Catheter Cath placed during this visit: yes Reason for continuing: Acute urinary retention Insertion date: 06/24/18 Insertion time: 09:50 Objective Laboratory Results - last 24 hr 06/27/18 06/27/18 06/28/18 10:49 19:49 03:13 WBC RBC Hgb Hct MCV MCH MCHC RDW Plt Count MPV Prelim Diff (Auto) Neut % (Auto) Lymph % (Auto) [place] % (Auto) Eos % (Auto) Baso % (Auto) Neut # (Auto) Lymph # (Auto) [place] # (Auto) Eos # (Auto) Baso # (Auto) WBC Differential Seg Neuts % (Manual) Band Neuts % (Manual) Lymphocytes % (Manual) Monocytes % (Manual) Eosinophils % (Manual) Abs Neuts (Manual) Differential Comment Platelet Estimate Platelet Morphology Sodium Potassium Chloride Carbon Dioxide Anion Gap BUN Creatinine Estimated GFR POC Glucose 98 93 Random Glucose Calcium Total Bilirubin AST ALT Alkaline Phosphatase Total Protein Albumin Valproic Acid 56 06/28/18 06/28/18 06:16 06:16 WBC 8.4 RBC 3.82 L Hgb 12.4 L Hct 36.5 L MCV 95.6 MCH 32.4 MCHC 33.9 RDW 12.5 Plt Count 140 L D MPV 7.5 Prelim Diff (Auto) Slide review pending Neut % (Auto) 71.6 H Lymph % (Auto) 12.8 [place] % (Auto) 14.6 H Eos % (Auto) 0.7 Baso % (Auto) 0.3 Neut # (Auto) 6.0 Lymph # (Auto) 1.1 [place] # (Auto) 1.2 H Eos # (Auto) 0.1 Baso # (Auto) 0.0 WBC Differential Manual diff final Seg Neuts % (Manual) 66 Band Neuts % (Manual) 4 Lymphocytes % (Manual) 12 Monocytes % (Manual) 16 H Eosinophils % (Manual) 2 Abs Neuts (Manual) 5.9 Differential Comment . Platelet Estimate Low L Platelet Morphology Normal Sodium 144 Potassium 3.7 Chloride 110 H Carbon Dioxide 28.3 Anion Gap 6 BUN 7 Creatinine 0.53 L Estimated GFR Greater than 89 POC Glucose Random Glucose 101 Calcium 8.2 L Total Bilirubin 0.5 AST 16 ALT 19 Alkaline Phosphatase 78 Total Protein 6.4 Albumin 2.6 L Valproic Acid Review/Management - Diagnosis (1) Encephalomalacia Code(s): G93.89 - Other specified disorders of brain Status: Acute Current Visit: Yes (2) Dementia Code(s): F03.90 - Unspecified dementia without behavioral disturbance Status: Acute Current Visit: Yes (3) Intractable seizure disorder Code(s): G40.919 - Epilepsy, unspecified, intractable, without status epilepticus Status: Acute Current Visit: Yes (4) ICH (intracerebral hemorrhage) Code(s): I61.9 - Nontraumatic intracerebral hemorrhage, unspecified Status: Acute Current Visit: Yes - Review/Management Plan: Intracranial hemorrhage. 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
--- NOTE | 2018-06-28 11:56 | P.PNNS ---
Subjective Interval history: Tube exchanged received Versed this morning, prior to that localizing R > L Physical Exam Vital signs: Vital Signs 06/27/18 12:00 06/27/18 12:15 06/27/18 12:30 Temperature 98.8 F Pulse Rate 89 80 80 Respiratory Rate 11 L 7 L 7 L Blood Pressure 144/76 H 125/62 130/61 Pulse Oximetry 100 100 100 06/27/18 12:45 06/27/18 13:00 06/27/18 13:15 Temperature Pulse Rate 85 87 84 Respiratory Rate 8 L 7 L 7 L Blood Pressure 127/62 134/67 127/62 Pulse Oximetry 100 100 100 06/27/18 13:30 06/27/18 13:45 06/27/18 14:00 Temperature Pulse Rate 81 83 81 Respiratory Rate 8 L 9 L 8 L Blood Pressure 128/60 128/61 130/62 Pulse Oximetry 100 100 100 06/27/18 14:15 06/27/18 14:30 06/27/18 14:45 Temperature Pulse Rate 80 80 95 H Respiratory Rate 8 L 8 L 13 Blood Pressure 126/60 124/58 L 124/60 Pulse Oximetry 100 100 100 06/27/18 15:00 06/27/18 15:15 06/27/18 15:30 Temperature Pulse Rate 104 H 100 H 96 H Respiratory Rate 19 23 14 Blood Pressure 152/72 H 130/65 133/68 Pulse Oximetry 100 100 100 06/27/18 15:40 06/27/18 15:45 06/27/18 16:00 Temperature 100.5 F H Pulse Rate 102 H 105 H 93 H Respiratory Rate 20 21 12 Blood Pressure 141/65 H 133/63 Pulse Oximetry 100 100 100 06/27/18 16:15 06/27/18 16:30 06/27/18 16:45 Temperature Pulse Rate 96 H 97 H 92 H Respiratory Rate 22 19 20 Blood Pressure 132/63 129/64 130/68 Pulse Oximetry 100 100 100 06/27/18 17:00 06/27/18 17:15 06/27/18 17:30 Temperature Pulse Rate 89 101 H 103 H Respiratory Rate 24 27 H 22 Blood Pressure 132/62 134/66 143/74 H Pulse Oximetry 100 100 100 06/27/18 17:45 06/27/18 18:00 06/27/18 18:15 Temperature Pulse Rate 101 H 102 H 93 H Respiratory Rate 27 H 29 H 19 Blood Pressure 135/72 154/67 H 130/62 Pulse Oximetry 100 99 100 06/27/18 18:30 06/27/18 18:45 06/27/18 19:00 Temperature Pulse Rate 97 H 99 H 96 H Respiratory Rate 20 20 16 Blood Pressure 130/62 135/66 148/71 H Pulse Oximetry 100 100 100 06/27/18 19:15 06/27/18 19:30 06/27/18 19:45 Temperature Pulse Rate 100 H 102 H 108 H Respiratory Rate 19 22 21 Blood Pressure 163/66 H 154/65 H 163/74 H Pulse Oximetry 100 100 100 06/27/18 20:00 06/27/18 20:15 06/27/18 20:30 Temperature 100.7 F H Pulse Rate 101 H 136 H 100 H Respiratory Rate 23 23 18 Blood Pressure 143/76 H 136/71 147/73 H Pulse Oximetry 100 100 100 06/27/18 20:45 06/27/18 21:00 06/27/18 21:06 Temperature 100.7 F H Pulse Rate 102 H 105 H Respiratory Rate 21 25 H 18 Blood Pressure 142/66 H 131/60 Pulse Oximetry 100 100 100 06/27/18 21:08 06/27/18 22:00 06/27/18 23:00 Temperature Pulse Rate 90 97 H 84 Respiratory Rate 16 18 16 Blood Pressure 143/61 H 172/84 H Pulse Oximetry 100 100 06/27/18 23:38 06/28/18 00:00 06/28/18 01:00 Temperature 99.2 F Pulse Rate 92 H 80 Respiratory Rate 20 22 16 Blood Pressure 164/78 H 160/73 H Pulse Oximetry 100 100 100 06/28/18 02:00 06/28/18 03:00 06/28/18 03:37 Temperature Pulse Rate 85 103 H 98 H Respiratory Rate 16 23 19 Blood Pressure 150/69 H 157/68 H Pulse Oximetry 100 100 100 06/28/18 04:00 06/28/18 05:00 06/28/18 06:00 Temperature 99.2 F Pulse Rate 108 H 92 H 95 H Respiratory Rate 20 18 18 Blood Pressure 114/55 L 162/72 H 129/61 Pulse Oximetry 100 100 100 06/28/18 06:30 06/28/18 06:45 06/28/18 07:00 Temperature Pulse Rate 85 84 100 H Respiratory Rate 16 16 17 Blood Pressure 143/67 H 146/65 H 145/56 H Pulse Oximetry 100 100 100 06/28/18 07:15 06/28/18 07:30 06/28/18 07:45 Temperature Pulse Rate 112 H 104 H 85 Respiratory Rate 19 25 H 16 Blood Pressure 135/62 142/60 H 127/65 Pulse Oximetry 100 97 99 06/28/18 08:00 06/28/18 08:15 06/28/18 08:30 Temperature 98.4 F Pulse Rate 82 85 81 Respiratory Rate 16 16 16 Blood Pressure 129/61 139/68 138/73 Pulse Oximetry 99 99 100 06/28/18 08:45 06/28/18 08:59 06/28/18 09:00 Temperature Pulse Rate 81 81 Respiratory Rate 16 16 16 Blood Pressure 139/65 142/70 H Pulse Oximetry 100 100 100 06/28/18 09:01 06/28/18 09:15 06/28/18 09:30 Temperature Pulse Rate 86 83 93 H Respiratory Rate 16 16 35 H Blood Pressure 149/70 H 132/63 Pulse Oximetry 100 100 06/28/18 09:45 06/28/18 10:00 06/28/18 10:15 Temperature Pulse Rate 86 83 83 Respiratory Rate 19 16 16 Blood Pressure 141/70 H 136/66 137/66 Pulse Oximetry 100 100 100 06/28/18 10:30 06/28/18 10:45 06/28/18 11:00 Temperature Pulse Rate 83 82 83 Respiratory Rate 16 16 16 Blood Pressure 138/65 139/67 142/67 H Pulse Oximetry 100 100 100 06/28/18 11:15 06/28/18 11:30 Temperature Pulse Rate 82 82 Respiratory Rate 16 16 Blood Pressure 136/69 138/67 Pulse Oximetry 100 100 Intake & Output 06/27/18 06/28/18 06/28/18 18:59 06:59 18:59 Intake Total 657.5 / 657.5 3250.5 / 3250.5 1512.5 / 1512.5 Output Total 1531 / 1531 2711 / 2711 Balance -873.5 / -873.5 539.5 / 539.5 1512.5 / 1512.5 Weight 85.9 kg Intake: IV 607.5 / 607.5 2617.5 / 2617.5 1512.5 / 1512.5 NS Inj 1,000 ML @ 125 mls/hr IV 0 / 0 1000 / 1000 950 / 950 .CONT .Q8H [facility] Rx#:[id number] Cardene Inj 25 MG In NS Inj 250 1010 / 1010 250 / 250 ML @ 0 mls/hr IV.CONT TITRATE PRN Rx#:[id number] Depacon Inj 750 MG In NS Inj 107.5 / 107.5 107.5 / 107.5 107.5 / 107.5 100 ML @ 105 mls/hr IV.SIG Q8HR [facility] Rx#:[id number] Keppra 1000 mg/100 mL Premix 100 / 100 100 / 100 105 / 105 100 ML @ 400 mls/hr IV.SIG Q12H [facility] Rx#:[id number] Cardene 20 mg/NS 200 ml Premix 400 / 400 400 / 400 20 mg In 200 ml @ 5 MG/HR 50 mls/hr IV.SIG TITRATE PRN Rx#: [id number] Tube Feeding 633 / 633 Water Bolus Amount 50 / 50 Output: Urine Amount (Catheter) 1425 / 1425 2600 / 2600 Indwelling Urethral Catheter 1425 / 1425 2600 / 2600 Intracranial Drainage 106 / 106 111 / 111 Right Temporoparietal 106 / 106 111 / 111 Narrative: localizing right > left perrl intubated (versed sedation wearing off) - Urinary Catheter Management Indwelling Urethral Catheter Cath placed during this visit: yes Reason for continuing: Acute urinary retention Insertion date: 06/24/18 Insertion time: 09:50 Assessment and Plan - Plan A: 67 y/o M with right frontal ICH and IVH. s/p Ventriculostomy drain. P: Continue to monitor neuro exam closely. Continue with current care Continue with ventriculostomy drain. Wean sedation and Vent as vitals allow and as tolerated. 06/[address] shows stable. EVD at 0 will raise to 5 tomorrow after Versed wears off. ICPs stable
[2018-06-28] MEDS: hydrALAZINE 50 MG Tablet PO SCH (17:09)
[2018-06-28] MEDS: Metoprolol Tartrate 25 MG Tablet PO SCH ×2 (17:09→20:56)
[2018-06-28] MEDS: amLODIPine 10 MG Tablet PO SCH (17:09)
[2018-06-29] MEDS: Oral Hygiene Kit OROPHARYNG SCH ×4 (00:48→16:00)
[2018-06-29] MEDS: Sod Chloride 0.9% Inj 1,000 ML IV.CONT SCH ×3 (00:48→17:33)
[2018-06-29 04:36] LABS: Anion Gap 6 meq/L (5-15); Blood Urea Nitrogen 14 mg/dL (7-18); Calcium 8.3 mg/dL (8.5-10.1); Carbon Dioxide 26.1 meq/L (21.0-32.0); Chloride 108 meq/L (98-107); Glomerular Filtration Rate Greater Than 89 mL/min (>89); Glucose,Random 93 mg/dL (74-106); Magnesium 2.1 mg/dL (1.5-2.5); Phosphorus 2.5 mg/dL (2.5-4.9); Potassium 3.9 meq/L (3.5-5.1); Sodium 140 meq/L (136-145)
[2018-06-29] MEDS: Chlorhexidine Gluconate 2% 1 Pack (2 Cloths) TOPICAL SCH (05:35)
[2018-06-29] MEDS: Valproate Inj 750 MG in Sodium Chlor 0.9% Inj 100 ML IV.SIG SCH ×3 (05:35→21:57)
--- NOTE | 2018-06-29 07:37 | P.PNNS ---
Subjective Interval history: Versed wore off, localizing Physical Exam Vital signs: Vital Signs 06/28/18 07:45 06/28/18 08:00 06/28/18 08:15 Temperature 98.4 F Pulse Rate 85 82 85 Respiratory Rate 16 16 16 Blood Pressure 127/65 129/61 139/68 Pulse Oximetry 99 99 99 06/28/18 08:30 06/28/18 08:45 06/28/18 08:59 Temperature Pulse Rate 81 81 Respiratory Rate 16 16 16 Blood Pressure 138/73 139/65 Pulse Oximetry 100 100 100 06/28/18 09:00 06/28/18 09:01 06/28/18 09:15 Temperature Pulse Rate 81 86 83 Respiratory Rate 16 16 16 Blood Pressure 142/70 H 149/70 H Pulse Oximetry 100 100 06/28/18 09:30 06/28/18 09:45 06/28/18 10:00 Temperature Pulse Rate 93 H 86 83 Respiratory Rate 35 H 19 16 Blood Pressure 132/63 141/70 H 136/66 Pulse Oximetry 100 100 100 06/28/18 10:15 06/28/18 10:30 06/28/18 10:45 Temperature Pulse Rate 83 83 82 Respiratory Rate 16 16 16 Blood Pressure 137/66 138/65 139/67 Pulse Oximetry 100 100 100 06/28/18 11:00 06/28/18 11:15 06/28/18 11:30 Temperature Pulse Rate 83 82 82 Respiratory Rate 16 16 16 Blood Pressure 142/67 H 136/69 138/67 Pulse Oximetry 100 100 100 06/28/18 12:00 06/28/18 12:39 06/28/18 13:00 Temperature 98.6 F Pulse Rate 81 80 Respiratory Rate 16 Blood Pressure 141/64 H 159/73 H Pulse Oximetry 100 100 100 06/28/18 13:15 06/28/18 13:30 06/28/18 13:45 Temperature Pulse Rate 81 83 82 Respiratory Rate 16 16 16 Blood Pressure 150/70 H 150/70 H 147/66 H Pulse Oximetry 100 100 100 06/28/18 14:00 06/28/18 14:15 06/28/18 14:30 Temperature Pulse Rate 81 81 82 Respiratory Rate 16 16 16 Blood Pressure 148/68 H 144/67 H 147/68 H Pulse Oximetry 100 100 100 06/28/18 14:45 06/28/18 15:00 06/28/18 15:15 Temperature Pulse Rate 82 84 81 Respiratory Rate 16 16 16 Blood Pressure 141/67 H 142/67 H 145/68 H Pulse Oximetry 100 100 100 06/28/18 15:30 06/28/18 15:45 06/28/18 16:00 Temperature 98.4 F Pulse Rate 90 85 90 Respiratory Rate 18 20 23 Blood Pressure 122/57 L 135/65 139/75 Pulse Oximetry 99 99 100 06/28/18 16:15 06/28/18 16:30 06/28/18 16:45 Temperature Pulse Rate 87 84 85 Respiratory Rate 26 H 16 22 Blood Pressure 123/58 L 126/64 130/61 Pulse Oximetry 100 100 100 06/28/18 16:51 06/28/18 17:00 06/28/18 17:15 Temperature Pulse Rate 82 83 Respiratory Rate 16 16 16 Blood Pressure 138/66 141/67 H Pulse Oximetry 100 100 100 06/28/18 17:30 06/28/18 17:45 06/28/18 18:00 Temperature Pulse Rate 80 75 76 Respiratory Rate 16 16 23 Blood Pressure 139/65 137/65 131/63 Pulse Oximetry 100 100 100 06/28/18 19:00 06/28/18 20:00 06/28/18 21:00 Temperature 100.3 F H Pulse Rate 72 75 74 Respiratory Rate 21 16 16 Blood Pressure 134/63 142/66 H 138/64 Pulse Oximetry 100 100 100 06/28/18 21:03 06/28/18 22:00 06/28/18 23:00 Temperature Pulse Rate 67 68 Respiratory Rate 16 16 Blood Pressure 138/65 141/67 H Pulse Oximetry 100 100 100 06/29/18 00:00 06/29/18 01:00 06/29/18 01:41 Temperature 100.9 F H Pulse Rate 66 70 Respiratory Rate 18 16 16 Blood Pressure 152/71 H 147/69 H Pulse Oximetry 100 100 100 06/29/18 02:00 06/29/18 03:00 06/29/18 04:00 Temperature 99.2 F Pulse Rate 67 69 72 Respiratory Rate 16 16 17 Blood Pressure 137/63 148/69 H 147/67 H Pulse Oximetry 100 100 100 06/29/18 04:10 06/29/18 05:00 11/25/18 06:00 Temperature Pulse Rate 69 65 Respiratory Rate 18 16 16 Blood Pressure 143/65 H 139/64 Pulse Oximetry 100 100 100 Intake & Output 06/28/18 06/29/18 06/29/18 18:59 06:59 18:59 Intake Total 3285.0 / 3285.0 1933.1 / 1933.1 Output Total 1329 / 1329 1425 / 1425 Balance 1956.0 / 1956.0 508.1 / 508.1 Weight 87.4 kg Intake: IV 2770.0 / 2770.0 1315.1 / 1315.1 NS Inj 1,000 ML @ 125 mls/hr IV 1850 / 1850 1000 / 1000 .CONT .Q8H [facility] Rx#:[id number] Cardene Inj 25 MG In NS Inj 250 500 / 500 ML @ 0 mls/hr IV.CONT TITRATE PRN Rx#:[id number] Depacon Inj 750 MG In NS Inj 215.0 / 215.0 215.1 / 215.1 100 ML @ 105 mls/hr IV.SIG Q8HR [facility] Rx#:[id number] Keppra 1000 mg/100 mL Premix 105 / 105 100 / 100 100 ML @ 400 mls/hr IV.SIG Q12H [facility] Rx#:[id number] Tube Feeding 455 / 455 558 / 558 Tube Irrigant 60 / 60 60 / 60 Output: Urine Amount (Catheter) 1225 / 1225 1325 / 1325 Indwelling Urethral Catheter 1225 / 1225 1325 / 1325 Intracranial Drainage 104 / 104 100 / 100 Right Temporoparietal 104 / 104 100 / 100 Other: Date of Last Bowel Movement 06/29/18 # Bowel Movements 1 # Incontinent Bowel Movements 1 Narrative: localizing right upper > left and w/d bilateral LE perrl intubated - Urinary Catheter Management Indwelling Urethral Catheter Cath placed during this visit: yes Reason for continuing: Acute urinary retention Insertion date: 06/24/18 Insertion time: 09:50 Assessment and Plan - Plan A: 67 y/o M with right frontal ICH and IVH. s/p Ventriculostomy drain. P: Continue to monitor neuro exam closely. Continue with current care Continue with ventriculostomy drain. Wean sedation and Vent as vitals allow and as tolerated. 06/[address] shows stable. EVD at 0 will raise to 5 tomorrow after Versed wears off. ICPs stable 06/29 Raise EVD to 5 above EAC today, start to challenge. Last shift 100cc out at 0 above, ICP 0-2.
[2018-06-29 08:13] LABS: Baso % (Auto) 0.2 % (0.0-2.0); Eos # (Auto) 0.1 th/mm3 (0.0-0.4); Eos % (Auto) 0.8 % (0.0-4.0); Hematocrit 32.1 % (39.0-51.0); Hemoglobin 11.1 gm/dL (13.0-17.0); Lymph # (Auto) 1.4 th/mm3 (1.0-4.8); Lymph % (Auto) 16.6 % (9.0-44.0); Mean Corpuscular HGB Conc 34.5 % (32.0-36.0); Mean Corpuscular Hemoglobin 32.5 pg (27.0-34.0); Mean Corpuscular Volume 94.2 fL (80.0-100.0); Mean Platelet Volume 6.7 fL (7.0-11.0); Mono # (Auto) 1.2 th/mm3 (0.0-0.9); Mono % (Auto) 14.4 % (0.0-8.0); Neut # (Auto) 5.7 th/mm3 (1.8-7.7); Platelet Count 167 th/mm3 (150-450); Red Blood Count 3.41 mil/mm3 (4.50-5.90); Red Cell Distribution Width 12.7 % (11.6-17.2); White Blood Count 8.4 th/mm3 (4.0-11.0)
[2018-06-29] MEDS: levETIRAcetam 1000mg/100mL Inj 100 ML IV.SIG SCH ×2 (09:07→21:04)
[2018-06-29] MEDS: Famotidine 20 MG Tablet NG/OG SCH ×2 (09:07→21:05)
[2018-06-29] MEDS: amLODIPine 10 MG Tablet PO SCH (09:07)
[2018-06-29] MEDS: Metoprolol Tartrate 25 MG Tablet PO SCH ×2 (09:07→21:05)
[2018-06-29] MEDS: hydrALAZINE 50 MG Tablet PO SCH ×3 (09:07→17:33)
[2018-06-29] MEDS: Chlorhexidine 0.12% Oral Kit 15 ML UDC OROPHARYNG SCH ×2 (09:07→21:05)
--- NOTE | 2018-06-29 12:42 | P.PNCC ---
Subjective Subjective Remarks/Hospital Course: 06/24: 67-year-old male with a medical history significant for dementia, seizure disorder, previous stroke, hypertension who was brought to the ER from shelter after he had multiple seizures this morning. On arrival in the ER he appeared to be seizing and was intubated by ER physician and placed on mechanical ventilation and sedated with propofol. Head CT done in the ER revealed left frontal intraparenchymal bleed with subdural hemorrhage. Patient was also noted to have a left humerus neck fracture on x-ray. He reportedly has been falling at the shelter multiple times. Patient has been on Eliquis at home and he received K Centra following arrival to the ER for reversal. 06/25: Remains sedated, orally intubated on mechanical ventilation. Head CT done today with new area of small subdural hemorrhage and increase in size of intraventricular hemorrhage, intraparenchymal hemorrhage same size. 06/26: Remains sedated, orally intubated on mechanical ventilation. Repeat head CT shows slight worsening of intra-cerebral hemorrhage yesterday. 06/27: Remains sedated, orally intubated on mechanical ventilation. 06/28: Endotracheal tube dislodged, replaced this morning. Oxygen saturation remained at 100% throughout. Withdraws four limbs and localizes all to pain. No obvious seizure activity. Not alert enough to extubate. 06/29: More active today. Will start spontaneous breathing trials. He JVD elevated to 5 cm, observe neurologic function closely. Objective Vital Signs / I&O: Vital Signs 06/28/18 12:39 06/28/18 13:00 06/28/18 13:15 Temperature Pulse Rate 80 81 Respiratory Rate 16 16 Blood Pressure 159/73 H 150/70 H Pulse Oximetry 100 100 100 06/28/18 13:30 06/28/18 13:45 06/28/18 14:00 Temperature Pulse Rate 83 82 81 Respiratory Rate 16 16 16 Blood Pressure 150/70 H 147/66 H 148/68 H Pulse Oximetry 100 100 100 06/28/18 14:15 06/28/18 14:30 06/28/18 14:45 Temperature Pulse Rate 81 82 82 Respiratory Rate 16 16 16 Blood Pressure 144/67 H 147/68 H 141/67 H Pulse Oximetry 100 100 100 06/28/18 15:00 06/28/18 15:15 06/28/18 15:30 Temperature Pulse Rate 84 81 90 Respiratory Rate 16 16 18 Blood Pressure 142/67 H 145/68 H 122/57 L Pulse Oximetry 100 100 99 06/28/18 15:45 06/28/18 16:00 06/28/18 16:15 Temperature 98.4 F Pulse Rate 85 90 87 Respiratory Rate 20 23 26 H Blood Pressure 135/65 139/75 123/58 L Pulse Oximetry 99 100 100 06/28/18 16:30 06/28/18 16:45 06/28/18 16:51 Temperature Pulse Rate 84 85 Respiratory Rate 16 22 16 Blood Pressure 126/64 130/61 Pulse Oximetry 100 100 100 06/28/18 17:00 06/28/18 17:15 06/28/18 17:30 Temperature Pulse Rate 82 83 80 Respiratory Rate 16 16 16 Blood Pressure 138/66 141/67 H 139/65 Pulse Oximetry 100 100 100 06/28/18 17:45 06/28/18 18:00 06/28/18 19:00 Temperature Pulse Rate 75 76 72 Respiratory Rate 16 23 21 Blood Pressure 137/65 131/63 134/63 Pulse Oximetry 100 100 100 06/28/18 20:00 06/28/18 21:00 06/28/18 21:03 Temperature 100.3 F H Pulse Rate 75 74 Respiratory Rate 16 16 16 Blood Pressure 142/66 H 138/64 Pulse Oximetry 100 100 100 06/28/18 22:00 06/28/18 23:00 06/29/18 00:00 Temperature 100.9 F H Pulse Rate 67 68 66 Respiratory Rate 16 18 Blood Pressure 138/65 141/67 H 152/71 H Pulse Oximetry 100 100 100 06/29/18 01:00 06/29/18 01:41 06/29/18 02:00 Temperature Pulse Rate 70 67 Respiratory Rate 16 16 16 Blood Pressure 147/69 H 137/63 Pulse Oximetry 100 100 100 06/29/18 03:00 06/29/18 04:00 06/29/18 04:10 Temperature 99.2 F Pulse Rate 69 72 Respiratory Rate 16 17 18 Blood Pressure 148/69 H 147/67 H Pulse Oximetry 100 100 100 06/29/18 05:00 06/29/18 06:00 06/29/18 07:00 Temperature Pulse Rate 69 65 67 Respiratory Rate 16 16 16 Blood Pressure 143/65 H 139/64 142/65 H Pulse Oximetry 100 100 100 06/29/18 08:00 06/29/18 09:00 06/29/18 09:45 Temperature 100.9 F H Pulse Rate 69 75 Respiratory Rate 16 18 17 Blood Pressure 143/66 H 145/77 H Pulse Oximetry 99 100 100 Intake & Output 06/28/18 06/29/18 06/29/18 18:59 06:59 18:59 Intake Total 3285.0 / 3285.0 1933.1 / 1933.1 100 / 100 Output Total 1329 / 1329 1425 / 1425 Balance 1956.0 / 1956.0 508.1 / 508.1 100 / 100 Weight 87.4 kg Intake: IV 2770.0 / 2770.0 1315.1 / 1315.1 100 / 100 NS Inj 1,000 ML @ 125 mls/hr IV 1850 / 1850 1000 / 1000 .CONT .Q8H [facility] Rx#:[id number] Cardene Inj 25 MG In NS Inj 250 500 / 500 ML @ 0 mls/hr IV.CONT TITRATE PRN Rx#:[id number] Depacon Inj 750 MG In NS Inj 215.0 / 215.0 215.1 / 215.1 100 ML @ 105 mls/hr IV.SIG Q8HR [facility] Rx#:[id number] Keppra 1000 mg/100 mL Premix 105 / 105 100 / 100 100 / 100 100 ML @ 400 mls/hr IV.SIG Q12H [facility] Rx#:[id number] Tube Feeding 455 / 455 558 / 558 Tube Irrigant 60 / 60 60 / 60 Output: Urine Amount (Catheter) 1225 / 1225 1325 / 1325 Indwelling Urethral Catheter 1225 / 1225 1325 / 1325 Intracranial Drainage 104 / 104 100 / 100 Right Temporoparietal 104 / 104 100 / 100 Other: Date of Last Bowel Movement 06/29/18 06/29/18 # Bowel Movements 1 # Incontinent Bowel Movements 1 Result Diagrams: 06/29/18 07:03 06/29/18 04:00 Objective Remarks: HEENT/ Neuro: No sedation, orally intubated, Pupils 2 mm bilaterally reactive to 1 mm. Localizes for 4 limbs. Neck: No JVD. Orotracheal intubation. Chest/Pulm: Good air entry bilaterally, no wheezing or crackles. Persistent clear watery secretions. CVS: S1-S2 regular, no murmur, no JVD. GI/abdomen: soft, nontender, bowel sounds present, no guarding. Extremities: warm bilaterally, no edema. Well perfused. Assessment and Plan - Assessment and Plan Plan: 67-year-old male with: Status epilepticus ICH/SDH Acute respiratory failure on mechanical ventilation Left humerus fracture History of dementia History of stroke Hypertension Plan: Neuro: Hold sedation. Keppra 1 g IV every 12 hourly. Valproate 500 mg IV every 8 hourly switched from p.o. dose at home. Follow valproate level. EEG did not reveal seizure activity. Neurology consult noted. Neurosurgery following for ICH, discussed with Dr. Jones - s/p ventriculostomy 06/24. ICPs normal. Cardiovascular: IV hydration, watch for hypotension. Hold antihypertensives at this time. Pulmonary: Continue mechanical ventilation, vent bundle, bronchodilators as needed. Start spontaneous breathing trials GI/liver: Tolerating tube feeds, follow prealbumin weekly. Renal/: IV hydration, strict intake, monitor and replete electrolytes, follow BUN and creatinine. MSK: Orthopedics consult for left humerus fracture noted - nonoperative management. ID: No indication for antibiotics at this time. Watch for sepsis. Serial CBC Endocrine: SSI for glycemic control if needed Heme: Follow CBC. Received K Centra to reverse Eliquis in the ER. Prophylaxis: Pepcid/SCDs. Palliative care following. Patient is DNR status at this time. Overall impression: Patient remains critically ill, requiring intubation and mechanical ventilation for treatment of the severe neurologic encephalopathy. Seizure activity appears to be controlled. Unable to wean from ventilator but will continue spontaneous trials daily Critical care time 35 minutes aside from procedures.
[2018-06-29] MEDS: Morphine Inj 4 MG/ML Vial IV.PUSH PRN (23:51)
[2018-06-30] MEDS: Oral Hygiene Kit OROPHARYNG SCH ×4 (00:07→16:15)
[2018-06-30] MEDS: Sod Chloride 0.9% Inj 1,000 ML IV.CONT SCH ×3 (00:07→17:41)
[2018-06-30 05:58] LABS: Baso % (Auto) 0.1 % (0.0-2.0); Eos % (Auto) 0.1 % (0.0-4.0); Hematocrit 31.8 % (39.0-51.0); Hemoglobin 11.1 gm/dL (13.0-17.0); Lymph # (Auto) 0.3 th/mm3 (1.0-4.8); Lymph % (Auto) 2.2 % (9.0-44.0); Mean Corpuscular Hemoglobin 32.3 pg (27.0-34.0); Mean Corpuscular Volume 92.4 fL (80.0-100.0); Mono # (Auto) 0.4 th/mm3 (0.0-0.9); Mono % (Auto) 3.2 % (0.0-8.0); Neut # (Auto) 12.1 th/mm3 (1.8-7.7); Neut % (Auto) 94.4 % (16.0-70.0); Platelet Count 119 th/mm3 (150-450); Red Blood Count 3.44 mil/mm3 (4.50-5.90); Red Cell Distribution Width 12.6 % (11.6-17.2); White Blood Count 12.8 th/mm3 (4.0-11.0)
[2018-06-30] MEDS: Valproate Inj 750 MG in Sodium Chlor 0.9% Inj 100 ML IV.SIG SCH ×3 (06:00→21:12)
[2018-06-30 06:28] LABS: Anion Gap 8 meq/L (5-15); Blood Urea Nitrogen 18 mg/dL (7-18); Calcium 7.6 mg/dL (8.5-10.1); Chloride 109 meq/L (98-107); Glomerular Filtration Rate Greater Than 89 mL/min (>89); Glucose,Random 109 mg/dL (74-106); Sodium 142 meq/L (136-145)
[2018-06-30 06:29] LABS: Potassium 2.9 meq/L (3.5-5.1)
[2018-06-30] MEDS ORDERED: Sodium Phosphate Inj 30 MMOL in Sodium Chlor 0.9% Inj 250 ML IV.SIG PRN (06:40)
[2018-06-30] MEDS ORDERED: Potassium Phosphate 500 MG Soluble Tablet PO PRN ×2 (06:40)
[2018-06-30] MEDS ORDERED: Magnesium Oxide 400 MG Tablet PO PRN (06:40)
[2018-06-30] MEDS ORDERED: Magnesium Sulfate Inj 4 GM in Sodium Chlor 0.9% Inj 92 ML IV.SIG PRN (06:40)
[2018-06-30] MEDS ORDERED: Magnesium Sulfate Inj 2 GM in Sodium Chlor 0.9% Inj 96 ML IV.SIG PRN (06:40)
[2018-06-30] MEDS ORDERED: Potassium Chlor 40 mEq Premix 40 MEQ/100 ML PIGGYBACK IV.SIG PRN ×2 (06:40)
[2018-06-30] MEDS ORDERED: Potassium Phosphate Inj 30 MMOL in Sodium Chlor 0.9% Inj 250 ML IV.SIG PRN (06:40)
[2018-06-30 07:00] LABS: Lymphocytes 5 % (9-44); Metamyelocytes 2 % (0-1); Monocytes 3 % (0-8)
[2018-06-30 07:01] LABS: Platelet Morphology Normal (Normal); Toxic Vacuolation Present
[2018-06-30] MEDS: Chlorhexidine 0.12% Oral Kit 15 ML UDC OROPHARYNG SCH ×2 (07:45→20:35)
--- NOTE | 2018-06-30 07:45 | P.PNNEU ---
Subjective Subjective Comments: no acute events Active Medications: Active Medications Acetaminophen (Tylenol) 650 mg PO Q6H PRN PRN Reason: PAIN 1-10 AND/OR FEVER >101F Albuterol (Duoneb Neb (Prn)) 1 ampul NEB Q4HR NEB PRN PRN Reason: SHORTNESS OF BREATH Amlodipine Besylate (Norvasc) 10 mg PO DAILY [facility] Last Admin: 06/29/18 09:07 Dose: 10 mg Chlorhexidine Gluconate (Peridex 0.12% Oral Kit) 15 ml OROPHARYNG BID@0800, 2000 [facility] Last Admin: 06/29/18 21:05 Dose: 15 ml Famotidine (Pepcid) 20 mg NG/OG BID [facility] Last Admin: 06/29/18 21:05 Dose: 20 mg Hydralazine HCl (Apresoline) 50 mg PO TID [facility] Last Admin: 06/29/18 17:33 Dose: 50 mg Sodium Chloride (Ns Inj) 1,000 mls @ 125 mls/hr IV.CONT .Q8H [facility] Last Admin: 06/30/18 00:07 Dose: 125 mls/hr Propofol (Diprivan 1000 Mg/100 Ml Inj) 1,000 mg in 100 mls @ 2.585 mls/hr IV.CONT TITRATE PRN; Protocol PRN Reason: Per Protocol Last Titration: 06/27/18 10:45 Dose: 0 mcg/kg/min, 0 mls/hr Levetiracetam (Keppra 1000 Mg/100 Ml Premix) 100 mls @ 400 mls/hr IV.SIG Q12H [facility] Last Infusion: 06/29/18 21:19 Dose: Infused Valproate Sodium 750 mg/ (Sodium Chloride) 107.5 mls @ 105 mls/hr IV.SIG Q8HR [facility] Last Infusion: 06/30/18 07:24 Dose: Infused Nicardipine HCl 25 mg/ Sodium (Chloride) 260 mls @ 0 mls/hr IV.CONT TITRATE PRN ; Protocol PRN Reason: BLOOD PRESSURE MANAGEMENT Last Infusion: 06/28/18 18:26 Dose: 0 mls/hr Magnesium Sulfate 4 gm/ Sodium (Chloride) 100 mls @ 50 mls/hr IV.SIG UNSCH PRN PRN Reason: For Magnesium 0.9 - 1.1 mg/dL Magnesium Sulfate 2 gm/ Sodium (Chloride) 100 mls @ 50 mls/hr IV.SIG UNSCH PRN PRN Reason: For Magnesium 1.2 - 1.6 mg/dL Potassium Chloride (Kcl 40 Meq Premix Inj) 40 meq in 100 mls @ 25 mls/hr IV.SIG Q2H PRN PRN Reason: For Potassium 2.8 - 3.2 mEq/L Potassium Chloride (Kcl 20 Meq Premix Inj) 20 meq in 100 mls @ 50 mls/hr IV.SIG Q2H PRN PRN Reason: For Potassium 3.3 - 3.5 mEq/L Potassium Chloride (Kcl 40 Meq Premix Inj) 40 meq in 100 mls @ 25 mls/hr IV.SIG UNSCH PRN PRN Reason: For Potassium 3.3 - 3.5 mEq/L Potassium Chloride (Kcl 20 Meq Premix Inj) 20 meq in 100 mls @ 50 mls/hr IV.SIG Q2H PRN PRN Reason: For Potassium 2.8 - 3.2 mEq/L Potassium Phosphate 30 mmol/ (Sodium Chloride) 260 mls @ 42 mls/hr IV.SIG UNSCH PRN PRN Reason: SEE LABEL COMMENTS Sodium Phosphate 30 mmol/ (Sodium Chloride) 260 mls @ 42 mls/hr IV.SIG UNSCH PRN PRN Reason: For Phosphorus < 2.5 mg/dL Magnesium Oxide (Mag-Ox) 800 mg PO UNSCH PRN PRN Reason: For Magnesium 1.2 - 1.6 mg/dL Metoprolol Tartrate (Lopressor) 25 mg PO BID [facility] Last Admin: 06/29/18 21:05 Dose: 25 mg Miscellaneous Medication () 1 each OROPHARYNG 0000,0400,1200,1600 [facility] Last Admin: 06/30/18 06:00 Dose: 1 each Morphine Sulfate (Morphine Inj) 4 mg IV.PUSH Q4H PRN PRN Reason: PAIN SCALE 6 TO 10 IF NOT RUI Last Admin: 06/29/18 23:51 Dose: 4 mg Morphine Sulfate (Morphine Inj) 2 mg IV.PUSH Q4H PRN PRN Reason: PAIN 1 TO 5 IF NOT RUI PO Last Admin: 06/26/18 22:30 Dose: 2 mg Potassium Bicarb/Potassium Chloride (K-Lyte Cl Eff) 50 meq PO UNSCH PRN PRN Reason: For Potassium 3.3 - 3.5 mEq/L Potassium Phosphate (K-Phos Original) 2,000 mg PO Q4H PRN PRN Reason: Phosphorus Less Than 2.5 mg/dL Potassium Phosphate (K-Phos Original) 2,000 mg PO UNSCH PRN PRN Reason: SEE LABEL COMMENTS Sodium Chloride (Ns Flush) 2 ml IV.FLUSH PRN PRN PRN Reason: FLUSH AFTER USING IV ACCESS Last Admin: 06/24/18 08:15 Dose: 2 ml Thiamine HCl (Vitamin B1) 100 mg PO DAILY [facility] Last Admin: 06/29/18 09:12 Dose: 100 mg Allergies/Adverse Reactions: Allergies Allergy/AdvReac Type Severity Reaction Status Date / Time strawberry Allergy Unknown Swelling Verified 06/24/18 08:08 Review of Systems unobtainable due to endotracheal tube, unobtainable due to mental status Physical Exam Vital signs: Vital Signs 06/29/18 08:00 06/29/18 09:00 06/29/18 09:45 Temperature 100.9 F H Pulse Rate 69 75 Respiratory Rate 16 18 17 Blood Pressure 143/66 H 145/77 H Pulse Oximetry 99 100 100 06/29/18 10:00 06/29/18 11:00 06/29/18 12:00 Temperature 99.6 F Pulse Rate 66 67 73 Respiratory Rate 13 16 12 Blood Pressure 141/66 H 146/71 H 147/71 H Pulse Oximetry 100 100 100 06/29/18 13:00 06/29/18 14:00 06/29/18 15:00 Temperature Pulse Rate 68 66 68 Respiratory Rate 13 13 10 L Blood Pressure 141/68 H 145/67 H 143/65 H Pulse Oximetry 100 100 100 06/29/18 16:00 06/29/18 17:00 06/29/18 18:00 Temperature 99.8 F H Pulse Rate 74 77 77 Respiratory Rate 13 13 17 Blood Pressure 146/81 H 141/66 H 152/65 H Pulse Oximetry 100 100 99 06/29/18 19:00 06/29/18 20:00 06/29/18 20:02 Temperature 99.2 F Pulse Rate 80 80 Respiratory Rate 16 16 20 Blood Pressure 131/62 119/55 L Pulse Oximetry 99 99 100 06/29/18 21:00 06/29/18 22:00 06/29/18 23:00 Temperature Pulse Rate 81 59 L 70 Respiratory Rate 16 16 16 Blood Pressure 129/58 L 128/61 141/67 H Pulse Oximetry 99 100 100 06/30/18 00:00 06/30/18 01:00 06/30/18 01:25 Temperature 99.7 F H Pulse Rate 70 79 Respiratory Rate 17 16 16 Blood Pressure 135/69 158/91 H Pulse Oximetry 100 100 100 06/30/18 02:00 06/30/18 03:00 06/30/18 04:00 Temperature 99.7 F H Pulse Rate 81 73 68 Respiratory Rate 16 16 16 Blood Pressure 139/72 109/56 L 107/57 L Pulse Oximetry 100 100 100 06/30/18 04:12 06/30/18 05:00 06/30/18 06:00 Temperature Pulse Rate 69 68 Respiratory Rate 16 16 16 Blood Pressure 108/55 L 103/59 L Pulse Oximetry 100 100 100 Intake & Output 06/29/18 06/30/18 06/30/18 18:59 06:59 18:59 Intake Total 3023.6 / 3023.6 1772.7 / 1772.7 107.5 / 107.5 Output Total 739 / 739 1032 / 1032 Balance 2284.6 / 2284.6 740.7 / 740.7 107.5 / 107.5 Weight 88.7 kg Intake: IV 2207.6 / 2207.6 1207.7 / 1207.7 107.5 / 107.5 NS Inj 1,000 ML @ 125 mls/hr IV 2000 / 2000 1000 / 1000 .CONT .Q8H [facility] Rx#:[id number] Depacon Inj 750 MG In NS Inj 107.6 / 107.6 107.7 / 107.7 107.5 / 107.5 100 ML @ 105 mls/hr IV.SIG Q8HR [facility] Rx#:[id number] Keppra 1000 mg/100 mL Premix 100 / 100 100 / 100 100 ML @ 400 mls/hr IV.SIG Q12H [facility] Rx#:[id number] Tube Feeding 566 / 566 565 / 565 Water Bolus Amount 250 / 250 Output: Urine Amount (Catheter) 675 / 675 950 / 950 Indwelling Urethral Catheter 675 / 675 950 / 950 Gastric Drainage 0 / 0 Oral Orogastric Tube 0 / 0 Intracranial Drainage 64 / 64 82 / 82 Right Temporoparietal 64 / 64 Other: Date of Last Bowel Movement 06/29/18 06/30/18 # Bowel Movements 1 1 # Incontinent Bowel Movements 1 1 Narrative: GENERAL: in NAD, SKIN: Warm and dry. HEAD: Atraumatic. Normocephalic. EYES: Pupils equal and round. No scleral icterus. ENT: No nasal bleeding or discharge. NECK: Trachea midline. No JVD. CARDIOVASCULAR: Regular rate and rhythm. RESPIRATORY: Intubated. intubated, not following, rt ICP drain in place grimaces, ou appear equal and reactive, withdraws flexion with ue rt>left, roberto le to gravity - Constitutional no acute distress - Routine HEENT Exam Head: Present: normocephalic - Urinary Catheter Management Indwelling Urethral Catheter Cath placed during this visit: yes Reason for continuing: Acute urinary retention Insertion date: 06/24/18 Insertion time: 09:50 Objective Laboratory Results - last 24 hr 06/29/18 06/29/18 06/29/18 07:03 13:25 23:25 WBC 8.4 RBC 3.41 L Hgb 11.1 L Hct 32.1 L MCV 94.2 MCH 32.5 MCHC 34.5 RDW 12.7 Plt Count 167 MPV 6.7 L Prelim Diff (Auto) Neut % (Auto) 68.0 Lymph % (Auto) 16.6 [place] % (Auto) 14.4 H Eos % (Auto) 0.8 Baso % (Auto) 0.2 Neut # (Auto) 5.7 Lymph # (Auto) 1.4 [place] # (Auto) 1.2 H Eos # (Auto) 0.1 Baso # (Auto) 0.0 WBC Differential . Seg Neuts % (Manual) Band Neuts % (Manual) Lymphocytes % (Manual) Monocytes % (Manual) Metamyelocytes % (Man) Abs Neuts (Manual) Differential Comment Auto diff final Toxic Vacuolation Platelet Estimate Platelet Morphology Sodium Potassium Chloride Carbon Dioxide Anion Gap BUN Creatinine Estimated GFR POC Glucose 106 85 Random Glucose Calcium 06/30/18 06/30/18 06/30/18 05:28 05:28 06:13 WBC 12.8 H D RBC 3.44 L Hgb 11.1 L Hct 31.8 L MCV 92.4 MCH 32.3 MCHC 35.0 RDW 12.6 Plt Count 119 L MPV 7.0 Prelim Diff (Auto) Slide review pending Neut % (Auto) 94.4 H Lymph % (Auto) 2.2 L [place] % (Auto) 3.2 Eos % (Auto) 0.1 Baso % (Auto) 0.1 Neut # (Auto) 12.1 H Lymph # (Auto) 0.3 L [place] # (Auto) 0.4 Eos # (Auto) 0.0 Baso # (Auto) 0.0 WBC Differential Manual diff final Seg Neuts % (Manual) 64 Band Neuts % (Manual) 26 H Lymphocytes % (Manual) 5 L Monocytes % (Manual) 3 Metamyelocytes % (Man) 2 H Abs Neuts (Manual) 11.8 H Differential Comment . Toxic Vacuolation Present H Platelet Estimate Low L Platelet Morphology Normal Sodium 142 Potassium 2.9 L* D Chloride 109 H Carbon Dioxide 25.0 Anion Gap 8 BUN 18 Creatinine 0.59 L Estimated GFR Greater than 89 POC Glucose 103 Random Glucose 109 H Calcium 7.6 L Review/Management - Diagnosis (1) Encephalomalacia Code(s): G93.89 - Other specified disorders of brain Status: Acute Current Visit: Yes (2) Dementia Code(s): F03.90 - Unspecified dementia without behavioral disturbance Status: Acute Current Visit: Yes (3) Intractable seizure disorder Code(s): G40.919 - Epilepsy, unspecified, intractable, without status epilepticus Status: Acute Current Visit: Yes (4) ICH (intracerebral hemorrhage) Code(s): I61.9 - Nontraumatic intracerebral hemorrhage, unspecified Status: Acute Current Visit: Yes - Review/Management Plan: Intracranial hemorrhage. rt frontal hemorrhage, previous right posterior MCA encephalomalacia and left MCA encephalomalacia Seizures Probable underlying vascular dementia stimulus invoked tremors Recommendation f/u depakote level follow exam neuro prognosis guarded with underlying dementia and previous strokes. higher likelihood of full care appreciate palliative care (4) ICH (intracerebral hemorrhage) Qualifiers: Intracerebral hemorrhage etiology: nontraumatic Cerebral hemorrhage location : multiple localized areas of cerebrum Laterality: right Qualified Code(s): I61.6 - Nontraumatic intracerebral hemorrhage, multiple localized
[2018-06-30] MEDS: levETIRAcetam 1000mg/100mL Inj 100 ML IV.SIG SCH ×2 (08:59→20:34)
[2018-06-30] MEDS: amLODIPine 10 MG Tablet PO SCH (09:00)
[2018-06-30] MEDS: Famotidine 20 MG Tablet NG/OG SCH ×2 (09:00→20:35)
[2018-06-30] MEDS: Potassium Chlor 20 mEq Premix 20 MEQ/100 ML PIGGYBACK IV.SIG PRN ×4 (09:00→18:55)
[2018-06-30] MEDS: hydrALAZINE 50 MG Tablet PO SCH ×3 (09:00→17:42)
[2018-06-30] MEDS: Metoprolol Tartrate 25 MG Tablet PO SCH ×2 (09:00→20:35)
--- NOTE | 2018-06-30 12:28 | P.PNNS ---
Subjective Interval history: grimacing, spontaneous movements right side seen. ICPs stable. <Elissa Jarrell - Last Filed: 06/30/18 12:25> Physical Exam Vital signs: Vital Signs 06/29/18 13:00 06/29/18 14:00 06/29/18 15:00 Temperature Pulse Rate 68 66 68 Respiratory Rate 13 13 10 L Blood Pressure 141/68 H 145/67 H 143/65 H Pulse Oximetry 100 100 100 06/29/18 16:00 06/29/18 17:00 06/29/18 18:00 Temperature 99.8 F H Pulse Rate 74 77 77 Respiratory Rate 13 13 17 Blood Pressure 146/81 H 141/66 H 152/65 H Pulse Oximetry 100 100 99 06/29/18 19:00 06/29/18 20:00 06/29/18 20:02 Temperature 99.2 F Pulse Rate 80 80 Respiratory Rate 16 16 20 Blood Pressure 131/62 119/55 L Pulse Oximetry 99 99 100 06/29/18 21:00 06/29/18 22:00 06/29/18 23:00 Temperature Pulse Rate 81 59 L 70 Respiratory Rate 16 16 16 Blood Pressure 129/58 L 128/61 141/67 H Pulse Oximetry 99 100 100 06/30/18 00:00 06/30/18 01:00 06/30/18 01:25 Temperature 99.7 F H Pulse Rate 70 79 Respiratory Rate 17 16 16 Blood Pressure 135/69 158/91 H Pulse Oximetry 100 100 100 06/30/18 02:00 06/30/18 03:00 06/30/18 04:00 Temperature 99.7 F H Pulse Rate 81 73 68 Respiratory Rate 16 16 16 Blood Pressure 139/72 109/56 L 107/57 L Pulse Oximetry 100 100 100 06/30/18 04:12 06/30/18 05:00 06/30/18 06:00 Temperature Pulse Rate 69 68 Respiratory Rate 16 16 16 Blood Pressure 108/55 L 103/59 L Pulse Oximetry 100 100 100 06/30/18 08:14 06/30/18 12:22 Temperature Pulse Rate Respiratory Rate 17 17 Blood Pressure Pulse Oximetry 100 100 Intake & Output 06/29/18 06/30/18 06/30/18 18:59 06:59 18:59 Intake Total 3023.6 / 3023.6 1772.7 / 1772.7 1207.5 / 1207.5 Output Total 739 / 739 1032 / 1032 Balance 2284.6 / 2284.6 740.7 / 740.7 1207.5 / 1207.5 Weight 88.7 kg Intake: IV 2207.6 / 2207.6 1207.7 / 1207.7 1207.5 / 1207.5 Diprivan 1000 mg/100 ml Inj 1, 100 / 100 000 mg In 100 ml @ 5 MCG/KG/MIN 2.585 mls/hr IV.CONT TITRATE PRN Rx#:[id number] NS Inj 1,000 ML @ 125 mls/hr IV 2000 / 2000 1000 / 1000 1000 / 1000 .CONT .Q8H ESTELA Rx#:[id number] Depacon Inj 750 MG In NS Inj 107.6 / 107.6 107.7 / 107.7 107.5 / 107.5 100 ML @ 105 mls/hr IV.SIG Q8HR ESTELA Rx#:[id number] Keppra 1000 mg/100 mL Premix 100 / 100 100 / 100 100 ML @ 400 mls/hr IV.SIG Q12H ESTELA Rx#:[id number] Tube Feeding 566 / 566 565 / 565 Water Bolus Amount 250 / 250 Output: Urine Amount (Catheter) 675 / 675 950 / 950 Indwelling Urethral Catheter 675 / 675 950 / 950 Gastric Drainage 0 / 0 Oral Orogastric Tube 0 / 0 Intracranial Drainage 64 / 64 82 / 82 Right Temporoparietal 64 / 64 82 / 82 Other: Date of Last Bowel Movement 06/29/18 06/30/18 # Bowel Movements 1 1 # Incontinent Bowel Movements 1 1 Narrative: Did not open eyes pupils equal ventriculostomy draining well at 5 cm H20, ICPs = 4 intermittent movement right side, reported chronic left side weakness not following commands for testing - Urinary Catheter Management Indwelling Urethral Catheter Cath placed during this visit: yes Reason for continuing: Acute urinary retention Insertion date: 06/24/18 Insertion time: 09:50 <Elissa Jarrell - Last Filed: 06/30/18 12:25> Vital signs: Vital Signs 06/30/18 21:30 06/30/18 21:45 06/30/18 22:00 Temperature Pulse Rate 81 67 65 Respiratory Rate 18 14 15 Blood Pressure 132/67 Pulse Oximetry 100 99 99 06/30/18 22:15 06/30/18 22:30 06/30/18 22:45 Temperature Pulse Rate 65 64 67 Respiratory Rate 14 14 18 Blood Pressure Pulse Oximetry 99 99 99 06/30/18 23:00 06/30/18 23:15 06/30/18 23:30 Temperature Pulse Rate 68 67 76 Respiratory Rate 16 15 25 H Blood Pressure 133/69 Pulse Oximetry 100 99 100 06/30/18 23:45 07/01/18 00:00 07/01/18 00:08 Temperature 99.8 F H Pulse Rate 71 72 Respiratory Rate 18 18 17 Blood Pressure 138/73 Pulse Oximetry 99 100 98 07/01/18 00:15 07/01/18 00:30 07/01/18 00:45 Temperature Pulse Rate 70 108 H 69 Respiratory Rate 22 18 16 Blood Pressure Pulse Oximetry 99 99 98 07/01/18 01:00 07/01/18 01:15 07/01/18 01:30 Temperature Pulse Rate 69 70 69 Respiratory Rate 23 18 28 H Blood Pressure 144/66 H Pulse Oximetry 99 100 99 07/01/18 01:45 07/01/18 02:00 07/01/18 02:15 Temperature Pulse Rate 69 69 69 Respiratory Rate 16 16 17 Blood Pressure 153/74 H Pulse Oximetry 100 100 99 07/01/18 02:30 07/01/18 02:45 07/01/18 03:00 Temperature Pulse Rate 74 68 70 Respiratory Rate 20 14 14 Blood Pressure 151/81 H Pulse Oximetry 100 99 100 07/01/18 03:15 07/01/18 03:30 07/01/18 03:45 Temperature Pulse Rate 68 75 75 Respiratory Rate 14 19 18 Blood Pressure Pulse Oximetry 100 100 100 07/01/18 04:00 07/01/18 04:15 07/01/18 04:30 Temperature 98.9 F Pulse Rate 73 74 73 Respiratory Rate 16 16 15 Blood Pressure 149/81 H Pulse Oximetry 99 100 100 07/01/18 04:45 07/01/18 05:00 07/01/18 05:15 Temperature Pulse Rate 72 69 70 Respiratory Rate 15 14 15 Blood Pressure 161/82 H Pulse Oximetry 100 100 100 07/01/18 05:30 07/01/18 05:45 07/01/18 06:00 Temperature Pulse Rate 68 67 68 Respiratory Rate 14 14 14 Blood Pressure 164/78 H Pulse Oximetry 100 100 100 07/01/18 07:00 07/01/18 08:00 07/01/18 08:24 Temperature Pulse Rate 66 67 Respiratory Rate 14 14 13 Blood Pressure 169/79 H 170/81 H Pulse Oximetry 100 100 100 07/01/18 09:00 07/01/18 10:00 07/01/18 11:00 Temperature 98.3 F Pulse Rate 72 95 H 81 Respiratory Rate 12 22 15 Blood Pressure 186/91 H 151/78 H 122/63 Pulse Oximetry 100 100 99 07/01/18 11:47 07/01/18 12:00 07/01/18 13:00 Temperature 99.1 F Pulse Rate 75 74 Respiratory Rate 16 14 14 Blood Pressure 108/53 L 111/58 L Pulse Oximetry 98 98 98 07/01/18 14:00 07/01/18 15:00 07/01/18 15:22 Temperature Pulse Rate 75 70 Respiratory Rate 13 13 12 Blood Pressure 112/56 L 111/56 L Pulse Oximetry 99 99 98 07/01/18 16:00 07/01/18 17:00 07/01/18 18:40 Temperature 100.7 F H Pulse Rate 73 68 61 Respiratory Rate 14 13 11 L Blood Pressure 106/54 L 94/54 L 102/57 L Pulse Oximetry 100 99 100 Intake & Output 07/01/18 07/01/18 07/02/18 06:59 18:59 06:59 Intake Total 2072.0 / 2072.0 2151.5 / 2151.5 950 / 950 Output Total 744 / 744 1045 / 1045 Balance 1328.0 / 1328.0 1106.5 / 1106.5 950 / 950 Weight 91.7 kg Intake: IV 1415.0 / 1415.0 1407.5 / 1407.5 950 / 950 NS Inj 1,000 ML @ 125 mls/hr IV 1000 / 1000 1000 / 1000 950 / 950 .CONT .Q8H ESTELA Rx#:[id number] KCl 20 mEq Premix Inj 20 meq In 100 / 100 200 / 200 100 ml @ 50 mls/hr IV.SIG Q2H PRN Rx#:[id number] Depacon Inj 750 MG In NS Inj 215.0 / 215.0 107.5 / 107.5 100 ML @ 105 mls/hr IV.SIG Q8HR ESTELA Rx#:[id number] Keppra 1000 mg/100 mL Premix 100 / 100 100 / 100 100 ML @ 400 mls/hr IV.SIG Q12H ESTELA Rx#:[id number] Tube Feeding 537 / 537 654 / 654 Tube Irrigant 120 / 120 Other 90 / 90 Output: Urine Amount (Catheter) 700 / 700 975 / 975 Indwelling Urethral Catheter 700 / 700 975 / 975 Intracranial Drainage 44 / 44 70 / 70 Right Temporoparietal 44 44 70 / 70 Other: Date of Last Bowel Movement 07/01/18 07/01/18 # Bowel Movements 2 # Incontinent Bowel Movements 1 Narrative: The patient is intubated and sedated. Open eyes spontaneously. Localizes to painful stimuli with right side. Ventriculostomy at 10cm H2O Cranial Nerves: Pupils equal, 3 mm round, reactive to light. Eyes appear conjugated. There was no nystagmus, no papilledema. Face musculature appeared symmetrical at rest. Face sensation, olfaction, and hearing cannot be adequately assessed due to the patient's neurological condition. The patient has a corneal reflex. The patient has a gag reflex. The sternocleidomastoid and trapezius were symmetrical. Cervical Spine: The patient's neck is soft, supple, without nuchal rigidity. Motor: His muscle tone and bulk are normal on the right side. He moves purposefully right upper and lower extremities, with left hemiparesis. Reflexes: Deep tendon reflexes are trace There is a right plantar flexion response with left Babinsky. There is no clonus . Sensory: On examination there there is response to painful stimuli, purposefully right upper and lower extremities, with left hemiparesis. Cerebellar: Examination cannot be adequately assessed due to the patient's neurological condition. Lungs: clear Heart: Regular rhythm and rate Skin: warm and dry - Urinary Catheter Management Indwelling Urethral Catheter Cath placed during this visit: no <Sal Jones - Last Filed: 07/01/18 21:26> Assessment and Plan - Plan A: 67 y/o M with right frontal ICH and IVH. s/p Ventriculostomy drain. P: Continue to monitor neuro exam closely. Continue with current care Continue with ventriculostomy drain. Wean sedation and Vent as vitals allow and as tolerated. 06/[address] shows stable. EVD at 0 will raise to 5 tomorrow after Versed wears off. ICPs stable 06/29 Raise EVD to 5 above EAC today, start to challenge. Last shift 100cc out at 0 above, ICP 0-2 06/30 cont challenge ventriculostomy drain - raise to 10 cm H20, cont monitor ICPs. cont neuro checks and f/u exam. ok to start sq lovenox for dvt prophylaxis <Elissa Jarrell - Last Filed: 06/30/18 12:25> - Assessment (1) Intractable seizure disorder Code(s): G40.919 - Epilepsy, unspecified, intractable, without status epilepticus Status: Acute Plan: 67-year-old male with: Status epilepticus ICH/SDH Acute respiratory failure on mechanical ventilation Left humerus fracture History of dementia History of stroke Hypertension Plan: Neuro: Continue neuro checks, hold sedation. Chalenging ventriculostomy catheter , increase to 10 cm H2O. Continue Keppra 1 g IV every 12 hourly. Continue Valproate 500 mg IV every 8 hourly switched from p.o. dose at home. Follow valproate level. EEG did not reveal seizure activity. Neurology consult noted. ICPs remain normal. Cardiovascular: Fluid balance about right. Hold antihypertensives. Pulmonary: Continue mechanical ventilation, vent bundle, bronchodilators as needed. Continue spontaneous breathing trials at 05/09. GI/liver: Tolerating tube feeds, follow prealbumin weekly. Renal/: Tube feedings for hydration, strict intake, monitor and replete electrolytes, follow BUN and creatinine. Orthopedics consult for left humerus fracture noted - nonoperative management. ID: No indication for antibiotics at this time. Watch for sepsis. Serial CBC Endocrine: SSI as needed for glycemic control if needed Heme: Follow CBC. Received K Centra to reverse Eliquis in the ER. Prophylaxis: Pepcid for GI prophylaxis Jd hose and SCDs. Palliative care following. The exam, history, and the medical decision-making described in the above note were completed with the assistance of the mid-level provider. I reviewed and agree with the findings presented. I attest that I had a [id number] encounter with the patient on the same day, and personally performed and documented my assessment and findings in the medical record. (2) ICH (intracerebral hemorrhage) Code(s): I61.9 - Nontraumatic intracerebral hemorrhage, unspecified Status: Acute Qualifiers: Intracerebral hemorrhage etiology: nontraumatic Cerebral hemorrhage location: multiple localized areas of cerebrum Laterality: right Qualified Code(s): I61.6 - Nontraumatic intracerebral hemorrhage, multiple localized (3) Encephalomalacia Code(s): G93.89 - Other specified disorders of brain Status: Acute (4) Dementia Code(s): F03.90 - Unspecified dementia without behavioral disturbance Status: Acute <Sal Jones - Last Filed: 07/01/18 21:26>
--- NOTE | 2018-06-30 12:30 | P.PNPAL ---
Reason for Visit Reason for visit: a. To assist with evaluation and management of symptoms including: pain b. To assist medical decision maker(s) with: better understanding of current medical conditions; weighing benefits/burdens of medical treatment options; making medical treatment decisions. Subjective Subjective/Interval History: Mr. Castillo is a 67-year-old long-term resident with a history of seizures, CVA , hypertension, dementia, schizophrenia/bipolar, atrial fibrillation and previous CVA. He presented to [facility] ED via EMS on 06/22/2018 after having multiple seizures earlier that day. Patient received Versed in route to the hospital secondary to seizures. Facility staff later stated the patient had a fall on 06/22/2018 and again on 06/23/2018. He has been having recurrent seizures since that time with a left facial droop. CT head revealed left frontal intraparenchymal bleed with subdural hemorrhage. Patient was also noted to have a left humerus fracture on x-ray. Patient is on Eliquis, therefore he received K Centra following arrival to the ED. Neurosurgery was consulted. Dr. Jones evaluated the patient and ventriculostomy was placed. Follow up visit for symptom management and clarification of medical treatment goals. Patient remain intubated on mechanical vent; off sedation. Plan for spontaneous breathing trails later today. PRN morphine is available 2mg to 4mg IV q4 hours as needed for pain. Patient has received 4mg x 1 over the past 24 hours. Patient does not open eyes to verbal stimuli. He grimaces to noxious stimuli. Clinical data: * WBC: 12.8, hemoglobin 11.1, hematocrit 31.8, platelets 119, neutrophils 94.9% * Sodium: 142, potassium 2.9, chloride 109, carbon dioxide 25.0, glucose 109, calcium 7.6 * BUN: 18, creatinine 0.59, GFR >89 * Valproic acid level 62mcg/ml * EEG on 06/28/18 showed no evidence of seizure activity * ICP: 0-2 Neurology and neurosurgery are following. Patient has a history of previous strokes with underlying dementia, requiring intubation and mechanical ventilation for treatment of severe neurologic encephalopathy. Unable to wean off ventilator, will continue spontaneous breathing trials daily. Patient completed written advanced directives on 06/15/10. A living will states he would not want his life to be prolonged nor would he want life-sustaining treatment to be provided or continued if his agent believed the burdens of the treatment outweigh the expected benefits. He would want his agent to consider the relief of suffering, the expense involved in the quality as well as the possible extension of his life and making decisions concerning life-sustaining treatment. Lindy Rojo is the patient's appointed guardian. Message left for Ms. Rojo with palliative care contact information. Spoke with private caregiver , Laura, who was at bedside. Family/Friend Interactions: See interval history Advance Directives Health Care Surrogate Name and Number: Lindy Rojo, appointed guardian on 2015 Documented care wishes:: Patient completed written advanced directives on 06/15/10. A living will states he would not want his life to be prolonged nor would he want life-sustaining treatment to be provided or continued if his agent believed the burdens of the treatment outweigh the expected benefits. He would want his agent to consider the relief of suffering, the expense involved in the quality as well as the possible extension of his life and making decisions concerning life-sustaining treatment. Objective Vital Signs: Vital Signs 06/29/18 13:00 06/29/18 14:00 06/29/18 15:00 Temperature Pulse Rate 68 66 68 Respiratory Rate 13 13 10 L Blood Pressure 141/68 H 145/67 H 143/65 H Pulse Oximetry 100 100 100 06/29/18 16:00 06/29/18 17:00 06/29/18 18:00 Temperature 99.8 F H Pulse Rate 74 77 77 Respiratory Rate 13 13 17 Blood Pressure 146/81 H 141/66 H 152/65 H Pulse Oximetry 100 100 99 06/29/18 19:00 06/29/18 20:00 06/29/18 20:02 Temperature 99.2 F Pulse Rate 80 80 Respiratory Rate 16 16 20 Blood Pressure 131/62 119/55 L Pulse Oximetry 99 99 100 06/29/18 21:00 06/29/18 22:00 06/29/18 23:00 Temperature Pulse Rate 81 59 L 70 Respiratory Rate 16 16 16 Blood Pressure 129/58 L 128/61 141/67 H Pulse Oximetry 99 100 100 06/30/18 00:00 06/30/18 01:00 06/30/18 01:25 Temperature 99.7 F H Pulse Rate 70 79 Respiratory Rate 17 16 16 Blood Pressure 135/69 158/91 H Pulse Oximetry 100 100 100 06/30/18 02:00 06/30/18 03:00 06/30/18 04:00 Temperature 99.7 F H Pulse Rate 81 73 68 Respiratory Rate 16 16 16 Blood Pressure 139/72 109/56 L 107/57 L Pulse Oximetry 100 100 100 06/30/18 04:12 06/30/18 05:00 06/30/18 06:00 Temperature Pulse Rate 69 68 Respiratory Rate 16 16 16 Blood Pressure 108/55 L 103/59 L Pulse Oximetry 100 100 100 06/30/18 08:14 06/30/18 12:22 Temperature Pulse Rate Respiratory Rate 17 17 Blood Pressure Pulse Oximetry 100 100 Intake & Output 06/29/18 06/30/18 06/30/18 18:59 06:59 18:59 Intake Total 3023.6 / 3023.6 1772.7 / 1772.7 1207.5 / 1207.5 Output Total 739 / 739 1032 / 1032 Balance 2284.6 / 2284.6 740.7 / 740.7 1207.5 / 1207.5 Weight 88.7 kg Intake: IV 2207.6 / 2207.6 1207.7 / 1207.7 1207.5 / 1207.5 Diprivan 1000 mg/100 ml Inj 1, 100 / 100 000 mg In 100 ml @ 5 MCG/KG/MIN 2.585 mls/hr IV.CONT TITRATE PRN Rx#:[id number] NS Inj 1,000 ML @ 125 mls/hr IV 2000 / 2000 1000 / 1000 1000 / 1000 .CONT .Q8H ESTELA Rx#:[id number] Depacon Inj 750 MG In NS Inj 107.6 / 107.6 107.7 / 107.7 107.5 / 107.5 100 ML @ 105 mls/hr IV.SIG Q8HR ESTELA Rx#:[id number] Keppra 1000 mg/100 mL Premix 100 / 100 100 / 100 100 ML @ 400 mls/hr IV.SIG Q12H ESTELA Rx#:[id number] Tube Feeding 566 / 566 565 / 565 Water Bolus Amount 250 / 250 Output: Urine Amount (Catheter) 675 / 675 950 / 950 Indwelling Urethral Catheter 675 / 675 950 / 950 Gastric Drainage 0 / 0 Oral Orogastric Tube 0 / 0 Intracranial Drainage 64 / 64 82 / 82 Right Temporoparietal 82 82 Other: Date of Last Bowel Movement 06/29/18 06/30/18 # Bowel Movements 1 1 # Incontinent Bowel Movements 1 1 Physical Exam: CONSTITUTIONAL/GENERAL: This is an adequately nourished patient, in no apparent distress. TUBES/LINES/DRAINS: PIV, indwelling urethral catheter, OGT, oral airway, ETT, ventriculostomy SKIN: No jaundice, rashes, or lesions. Ecchymoses on upper extremities. No wounds seen anteriorly. Skin temperature appropriate. Not diaphoretic. HEAD: Atraumatic. Normocephalic. EYES: Pupils equal and round and reactive. Extraocular motions intact. No scleral icterus. No injection or drainage. Fundi not examined. ENT: Nose without bleeding or purulent drainage. Throat without visible erythema , exudates, masses, or lesions. NECK: Trachea midline. Supple, nontender. No palpable thyroid enlargement or nodularity. CARDIOVASCULAR: Regular rate and rhythm without murmurs, gallops, or rubs. No JVD. Peripheral pulses symmetric. RESPIRATORY/CHEST: Symmetric, unlabored respirations. Clear to auscultation. Breath sounds equal bilaterally. No wheezes, rales, or rhonchi. GASTROINTESTINAL: Abdomen soft, non-tender, nondistended. No hepato-splenomegaly , or palpable masses. No guarding. Bowel sounds present. GENITOURINARY: Without palpable bladder distension. Schmid catheter in place. MUSCULOSKELETAL: Extremities without clubbing, cyanosis, or edema. No mottling or clubbing. LYMPHATICS: No palpable cervical or supraclavicular adenopathy. NEUROLOGICAL: Does not open eyes to verbal stimuli. Grimaces to noxious stimuli. PSYCHIATRIC: No obvious anxiety/depression. No apparent hallucinations or other psychotic thought process. Diagnostic Tests Laboratory: Laboratory Results - last 72 hr 06/27/18 06/28/18 06/28/18 19:49 03:13 06:16 WBC 8.4 RBC 3.82 L Hgb 12.4 L Hct 36.5 L MCV 95.6 MCH 32.4 MCHC 33.9 RDW 12.5 Plt Count 140 L D MPV 7.5 Prelim Diff (Auto) Slide review pending Neut % (Auto) 71.6 H Lymph % (Auto) 12.8 [place] % (Auto) 14.6 H Eos % (Auto) 0.7 Baso % (Auto) 0.3 Neut # (Auto) 6.0 Lymph # (Auto) 1.1 [place] # (Auto) 1.2 H Eos # (Auto) 0.1 Baso # (Auto) 0.0 WBC Differential Manual diff final Seg Neuts % (Manual) 66 Band Neuts % (Manual) 4 Lymphocytes % (Manual) 12 Monocytes % (Manual) 16 H Eosinophils % (Manual) 2 Metamyelocytes % (Man) Abs Neuts (Manual) 5.9 Differential Comment . Toxic Vacuolation Platelet Estimate Low L Platelet Morphology Normal Sodium Potassium Chloride Carbon Dioxide Anion Gap BUN Creatinine Estimated GFR POC Glucose 98 93 Random Glucose Calcium Phosphorus Magnesium Total Bilirubin AST ALT Alkaline Phosphatase Total Protein Albumin Valproic Acid 06/28/18 06/28/18 06/28/18 06:16 13:01 17:33 WBC RBC Hgb Hct MCV MCH MCHC RDW Plt Count MPV Prelim Diff (Auto) Neut % (Auto) Lymph % (Auto) [place] % (Auto) Eos % (Auto) Baso % (Auto) Neut # (Auto) Lymph # (Auto) [place] # (Auto) Eos # (Auto) Baso # (Auto) WBC Differential Seg Neuts % (Manual) Band Neuts % (Manual) Lymphocytes % (Manual) Monocytes % (Manual) Eosinophils % (Manual) Metamyelocytes % (Man) Abs Neuts (Manual) Differential Comment Toxic Vacuolation Platelet Estimate Platelet Morphology Sodium 144 Potassium 3.7 Chloride 110 H Carbon Dioxide 28.3 Anion Gap 6 BUN 7 Creatinine 0.53 L Estimated GFR Greater than 89 POC Glucose 80 105 Random Glucose 101 Calcium 8.2 L Phosphorus Magnesium Total Bilirubin 0.5 AST 16 ALT 19 Alkaline Phosphatase 78 Total Protein 6.4 Albumin 2.6 L Valproic Acid 06/29/18 06/29/18 06/29/18 00:45 04:00 05:44 WBC RBC Hgb Hct MCV MCH MCHC RDW Plt Count MPV Prelim Diff (Auto) Neut % (Auto) Lymph % (Auto) [place] % (Auto) Eos % (Auto) Baso % (Auto) Neut # (Auto) Lymph # (Auto) [place] # (Auto) Eos # (Auto) Baso # (Auto) WBC Differential Seg Neuts % (Manual) Band Neuts % (Manual) Lymphocytes % (Manual) Monocytes % (Manual) Eosinophils % (Manual) Metamyelocytes % (Man) Abs Neuts (Manual) Differential Comment Toxic Vacuolation Platelet Estimate Platelet Morphology Sodium 140 Potassium 3.9 Chloride 108 H Carbon Dioxide 26.1 Anion Gap 6 BUN 14 Creatinine 0.52 L Estimated GFR Greater than 89 POC Glucose 118 H 120 H Random Glucose 93 Calcium 8.3 L Phosphorus 2.5 Magnesium 2.1 Total Bilirubin AST ALT Alkaline Phosphatase Total Protein Albumin Valproic Acid 06/29/18 06/29/18 06/29/18 07:03 13:25 23:25 WBC 8.4 RBC 3.41 L Hgb 11.1 L Hct 32.1 L MCV 94.2 MCH 32.5 MCHC 34.5 RDW 12.7 Plt Count 167 MPV 6.7 L Prelim Diff (Auto) Neut % (Auto) 68.0 Lymph % (Auto) 16.6 [place] % (Auto) 14.4 H Eos % (Auto) 0.8 Baso % (Auto) 0.2 Neut # (Auto) 5.7 Lymph # (Auto) 1.4 [place] # (Auto) 1.2 H Eos # (Auto) 0.1 Baso # (Auto) 0.0 WBC Differential . Seg Neuts % (Manual) Band Neuts % (Manual) Lymphocytes % (Manual) Monocytes % (Manual) Eosinophils % (Manual) Metamyelocytes % (Man) Abs Neuts (Manual) Differential Comment Auto diff final Toxic Vacuolation Platelet Estimate Platelet Morphology Sodium Potassium Chloride Carbon Dioxide Anion Gap BUN Creatinine Estimated GFR POC Glucose 106 85 Random Glucose Calcium Phosphorus Magnesium Total Bilirubin AST ALT Alkaline Phosphatase Total Protein Albumin Valproic Acid 06/30/18 06/30/18 06/30/18 05:28 05:28 05:28 WBC 12.8 H D RBC 3.44 L Hgb 11.1 L Hct 31.8 L MCV 92.4 MCH 32.3 MCHC 35.0 RDW 12.6 Plt Count 119 L MPV 7.0 Prelim Diff (Auto) Slide review pending Neut % (Auto) 94.4 H Lymph % (Auto) 2.2 L [place] % (Auto) 3.2 Eos % (Auto) 0.1 Baso % (Auto) 0.1 Neut # (Auto) 12.1 H Lymph # (Auto) 0.3 L [place] # (Auto) 0.4 Eos # (Auto) 0.0 Baso # (Auto) 0.0 WBC Differential Manual diff final Seg Neuts % (Manual) 64 Band Neuts % (Manual) 26 H Lymphocytes % (Manual) 5 L Monocytes % (Manual) 3 Eosinophils % (Manual) Metamyelocytes % (Man) 2 H Abs Neuts (Manual) 11.8 H Differential Comment . Toxic Vacuolation Present H Platelet Estimate Low L Platelet Morphology Normal Sodium 142 Potassium 2.9 L* D Chloride 109 H Carbon Dioxide 25.0 Anion Gap 8 BUN 18 Creatinine 0.59 L Estimated GFR Greater than 89 POC Glucose Random Glucose 109 H Calcium 7.6 L Phosphorus Magnesium Total Bilirubin AST ALT Alkaline Phosphatase Total Protein Albumin Valproic Acid 62 06/30/18 06:13 WBC RBC Hgb Hct MCV MCH MCHC RDW Plt Count MPV Prelim Diff (Auto) Neut % (Auto) Lymph % (Auto) [place] % (Auto) Eos % (Auto) Baso % (Auto) Neut # (Auto) Lymph # (Auto) [place] # (Auto) Eos # (Auto) Baso # (Auto) WBC Differential Seg Neuts % (Manual) Band Neuts % (Manual) Lymphocytes % (Manual) Monocytes % (Manual) Eosinophils % (Manual) Metamyelocytes % (Man) Abs Neuts (Manual) Differential Comment Toxic Vacuolation Platelet Estimate Platelet Morphology Sodium Potassium Chloride Carbon Dioxide Anion Gap BUN Creatinine Estimated GFR POC Glucose 103 Random Glucose Calcium Phosphorus Magnesium Total Bilirubin AST ALT Alkaline Phosphatase Total Protein Albumin Valproic Acid Result Diagrams: 06/30/18 05:28 06/30/18 05:28 Imaging: To help prompt me to consider important information that might be impacting today's encounter and assessment, information from prior notes written by myself or my colleagues may have been "brought forward" into today's note. My signature on this note, however, is an attestation that I personally performed the exam, history, and/or decision-making noted today, and, unless otherwise indicated, the interactions with patient, family, and staff as well as the review of records all occurred today. I also attest that the listed assessment and stated plan reflect my best clinical judgment today based on the combination of historical information, prior notes, and today's exam/ interactions. When time spent is documented, it refers only to time spent today by the signer, or if indicated, combined time spent today by collaborating physician/nurse practitioner. Procedures: 06/24/2018: Endotracheal intubation 06/24/2018: NGT placement Assessment and Plan Pertinent Non-Medical Issues: Psychosocial: Per review of notes: Patient was born in [place], [place]. He moved to [place] in [place]. Both of his parents are . His father from complications of liver cirrhosis at an unknown age, and his mother of cancer when he was an . He was raised by his grandparents. He has no known siblings. Mr. castillo has been and 2 times. Patient reportedly had one daughter, Sharon. She approximately 2 years ago. 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 Patient has had multiple psychiatric hospitalizations. Spiritual: Baptized Christianity, however there is no current active faith affiliation. Legal: Per [place] statutes, in the absence of written advanced directives healthcare proxy decision making falls to the patient's daughter-Sharon. Ethical issues impacting care: No known ethical issues impacting care at this time. Important Contacts: Lindy Rojo, guardian: [phone] Code Status: Alternative Code (Intubation only) Plan: * ALTERNATE CODE-intubation only * Patient completed written advanced directives on 06/15/10. A living will states he would not want his life to be prolonged nor would he want life- sustaining treatment to be provided or continued if his agent believed the burdens of the treatment outweigh the expected benefits. He would want his agent to consider the relief of suffering, the expense involved in the quality as well as the possible extension of his life and making decisions concerning life-sustaining treatment. * Lindy Rojo is the patient's appointed guardian. * Palliative care contact information provided to patient's guardian * Symptom management-pain: Patient currently sedated on propofol showing no nonverbal signs or symptoms of pain. Potential causes of pain include recent falls, left humerus fracture, invasive lines etc. PRN morphine 2-4 mg is available every 4 hours as needed for pain. Morphine 4 mg administered x1. * Palliative care will continue to follow this patient throughout his hospitalization to establish trust, assist with symptom management and clarification of medical treatment goals.
--- NOTE | 2018-06-30 16:48 | P.PNCC ---
Subjective Subjective Remarks/Hospital Course: 06/24: 67-year-old male with a medical history significant for dementia, seizure disorder, previous stroke, hypertension who was brought to the ER from long-term after he had multiple seizures this morning. On arrival in the ER he appeared to be seizing and was intubated by ER physician and placed on mechanical ventilation and sedated with propofol. Head CT done in the ER revealed left frontal intraparenchymal bleed with subdural hemorrhage. Patient was also noted to have a left humerus neck fracture on x-ray. He reportedly has been falling at the long-term multiple times. Patient has been on Eliquis at home and he received K Centra following arrival to the ER for reversal. 06/25: Remains sedated, orally intubated on mechanical ventilation. Head CT done today with new area of small subdural hemorrhage and increase in size of intraventricular hemorrhage, intraparenchymal hemorrhage same size. 06/26: Remains sedated, orally intubated on mechanical ventilation. Repeat head CT shows slight worsening of intra-cerebral hemorrhage yesterday. 06/27: Remains sedated, orally intubated on mechanical ventilation. 06/28: Endotracheal tube dislodged, replaced this morning. Oxygen saturation remained at 100% throughout. Withdraws four limbs and localizes all to pain. No obvious seizure activity. Not alert enough to extubate. 06/29: More active today. Will start spontaneous breathing trials. He EVD elevated to 5 cm, observe neurologic function closely. 06/30: Tolerating elevated EVD. Continue spontaneous breathing trials. Replace potassium today. Objective Vital Signs / I&O: Vital Signs 06/29/18 17:00 06/29/18 18:00 06/29/18 19:00 Temperature Pulse Rate 77 77 80 Respiratory Rate 13 17 16 Blood Pressure 141/66 H 152/65 H 131/62 Pulse Oximetry 100 99 99 06/29/18 20:00 06/29/18 20:02 06/29/18 21:00 Temperature 99.2 F Pulse Rate 80 81 Respiratory Rate 16 20 16 Blood Pressure 119/55 L 129/58 L Pulse Oximetry 99 100 99 06/29/18 22:00 06/29/18 23:00 06/30/18 00:00 Temperature 99.7 F H Pulse Rate 59 L 70 70 Respiratory Rate 16 16 17 Blood Pressure 128/61 141/67 H 135/69 Pulse Oximetry 100 100 100 06/30/18 01:00 06/30/18 01:25 06/30/18 02:00 Temperature Pulse Rate 79 81 Respiratory Rate 16 16 16 Blood Pressure 158/91 H 139/72 Pulse Oximetry 100 100 100 06/30/18 03:00 06/30/18 04:00 06/30/18 04:12 Temperature 99.7 F H Pulse Rate 73 68 Respiratory Rate 16 16 16 Blood Pressure 109/56 L 107/57 L Pulse Oximetry 100 100 100 06/30/18 05:00 06/30/18 06:00 06/30/18 07:00 Temperature Pulse Rate 69 68 70 Respiratory Rate 16 16 14 Blood Pressure 108/55 L 103/59 L 110/57 L Pulse Oximetry 100 100 100 06/30/18 08:00 06/30/18 08:14 06/30/18 09:00 Temperature 100 F H Pulse Rate 68 65 Respiratory Rate 14 17 14 Blood Pressure 108/55 L 98/55 L Pulse Oximetry 100 100 100 06/30/18 10:00 06/30/18 11:00 06/30/18 12:00 Temperature 99.2 F Pulse Rate 62 66 64 Respiratory Rate 14 17 14 Blood Pressure 95/54 L 131/68 110/64 Pulse Oximetry 100 100 100 06/30/18 12:22 06/30/18 13:00 06/30/18 16:12 Temperature Pulse Rate 99 H Respiratory Rate 17 14 15 Blood Pressure 134/72 Pulse Oximetry 100 100 100 Intake & Output 06/29/18 06/30/18 06/30/18 18:59 06:59 18:59 Intake Total 3023.6 / 3023.6 1772.7 / 1772.7 1507.5 / 1507.5 Output Total 739 / 739 1032 / 1032 Balance 2284.6 / 2284.6 740.7 / 740.7 1507.5 / 1507.5 Weight 88.7 kg Intake: IV 2207.6 / 2207.6 1207.7 / 1207.7 1507.5 / 1507.5 Diprivan 1000 mg/100 ml Inj 1, 100 / 100 000 mg In 100 ml @ 5 MCG/KG/MIN 2.585 mls/hr IV.CONT TITRATE PRN Rx#:[id number] NS Inj 1,000 ML @ 125 mls/hr IV 2000 / 2000 1000 / 1000 1000 / 1000 .CONT .Q8H ESTELA Rx#:[id number] KCl 20 mEq Premix Inj 20 meq In 200 / 200 100 ml @ 50 mls/hr IV.SIG Q2H PRN Rx#:[id number] Depacon Inj 750 MG In NS Inj 107.6 / 107.6 107.7 / 107.7 107.5 / 107.5 100 ML @ 105 mls/hr IV.SIG Q8HR ESTELA Rx#:[id number] Keppra 1000 mg/100 mL Premix 100 / 100 100 / 100 100 / 100 100 ML @ 400 mls/hr IV.SIG Q12H ESTELA Rx#:[id number] Tube Feeding 566 / 566 565 / 565 Water Bolus Amount 250 / 250 Output: Urine Amount (Catheter) 675 / 675 950 / 950 Indwelling Urethral Catheter 675 / 675 950 / 950 Gastric Drainage 0 / 0 Oral Orogastric Tube 0 / 0 Intracranial Drainage 64 64 82 / 82 Right Temporoparietal 82 / 82 Other: Date of Last Bowel Movement 06/29/18 06/30/18 06/30/18 # Bowel Movements 1 1 # Incontinent Bowel Movements 1 1 Result Diagrams: 06/30/18 05:28 06/30/18 05:28 Objective Remarks: HEENT/ Neuro: No sedation, orally intubated, Pupils 2 mm, reactive to light bilaterally. Localizes for 4 limbs. Neck: No JVD. Orotracheal intubation. Chest/Pulm: Good air movement bilaterally, no wheezing or crackles. Moderate clear watery secretions. CVS: S1-S2 regular, no murmur, no JVD. GI/abdomen: soft, nontender, bowel sounds present, no guarding. Extremities: warm bilaterally, no edema. Well perfused. Assessment and Plan - Assessment and Plan Plan: 67-year-old male with: Status epilepticus ICH/SDH Acute respiratory failure on mechanical ventilation Left humerus fracture History of dementia History of stroke Hypertension Plan: Neuro: Hold sedation. Keppra 1 g IV every 12 hourly. Valproate 500 mg IV every 8 hourly switched from p.o. dose at home. Follow valproate level. EEG did not reveal seizure activity. Neurology consult noted. Neurosurgery following for ICH, discussed with Dr. Jones - s/p ventriculostomy 06/24. ICPs normal. Cardiovascular: IV hydration, watch for hypotension. Hold antihypertensives at this time. Pulmonary: Continue mechanical ventilation, vent bundle, bronchodilators as needed. Continue spontaneous breathing trials GI/liver: Tolerating tube feeds, follow prealbumin weekly. Renal/: IV hydration, strict intake, monitor and replete electrolytes, follow BUN and creatinine. MSK: Orthopedics consult for left humerus fracture noted - nonoperative management. ID: No indication for antibiotics at this time. Watch for sepsis. Serial CBC Endocrine: SSI as needed for glycemic control if needed Heme: Follow CBC. Received K Centra to reverse Eliquis in the ER. Prophylaxis: Pepcid/SCDs. Palliative care following. Patient is DNR status at this time. Overall impression: Patient remains critically ill, requiring intubation and mechanical ventilation for treatment of the severe neurologic encephalopathy. Seizure activity appears to be controlled. Unable to wean from ventilator but will continue spontaneous trials daily. Replace electrolytes today. Critical care time 38 minutes aside from procedures.
[2018-07-01] MEDS: Sod Chloride 0.9% Inj 1,000 ML IV.CONT SCH ×3 (01:49→19:05)
[2018-07-01] MEDS: Oral Hygiene Kit OROPHARYNG SCH ×4 (01:49→12:30)
[2018-07-01 04:37] LABS: Anion Gap 6 meq/L (5-15); Blood Urea Nitrogen 18 mg/dL (7-18); Calcium 8.2 mg/dL (8.5-10.1); Chloride 111 meq/L (98-107); Glomerular Filtration Rate Greater Than 89 mL/min (>89); Glucose,Random 113 mg/dL (74-106); Potassium 3.5 meq/L (3.5-5.1); Sodium 143 meq/L (136-145)
[2018-07-01] MEDS: Valproate Inj 750 MG in Sodium Chlor 0.9% Inj 100 ML IV.SIG SCH ×3 (05:06→21:03)
[2018-07-01] MEDS: Potassium Chlor 20 mEq Premix 20 MEQ/100 ML PIGGYBACK IV.SIG PRN ×2 (08:45→11:40)
[2018-07-01] MEDS: levETIRAcetam 1000mg/100mL Inj 100 ML IV.SIG SCH ×2 (08:48→21:04)
[2018-07-01] MEDS: Famotidine 20 MG Tablet NG/OG SCH ×2 (08:49→21:03)
[2018-07-01] MEDS: hydrALAZINE 50 MG Tablet PO SCH ×3 (08:49→19:03)
[2018-07-01] MEDS: Chlorhexidine 0.12% Oral Kit 15 ML UDC OROPHARYNG SCH ×2 (08:49→21:04)
[2018-07-01] MEDS: Metoprolol Tartrate 25 MG Tablet PO SCH (08:49)
[2018-07-01] MEDS: amLODIPine 10 MG Tablet PO SCH (08:49)
--- NOTE | 2018-07-01 10:34 | P.PNCC ---
Subjective Subjective Remarks/Hospital Course: 06/24: 67-year-old male with a medical history significant for dementia, seizure disorder, previous stroke, hypertension who was brought to the ER from sn[facility] after he had multiple seizures this morning. On arrival in the ER he appeared to be seizing and was intubated by ER physician and placed on mechanical ventilation and sedated with propofol. Head CT done in the ER revealed left frontal intraparenchymal bleed with subdural hemorrhage. Patient was also noted to have a left humerus neck fracture on x-ray. He reportedly has been falling at the snf multiple times. Patient has been on Eliquis at home and he received K Centra following arrival to the ER for reversal. 06/25: Remains sedated, orally intubated on mechanical ventilation. Head CT done today with new area of small subdural hemorrhage and increase in size of intraventricular hemorrhage, intraparenchymal hemorrhage same size. 06/26: Remains sedated, orally intubated on mechanical ventilation. Repeat head CT shows slight worsening of intra-cerebral hemorrhage yesterday. 06/27: Remains sedated, orally intubated on mechanical ventilation. 06/28: Endotracheal tube dislodged, replaced this morning. Oxygen saturation remained at 100% throughout. Withdraws four limbs and localizes all to pain. No obvious seizure activity. Not alert enough to extubate. 06/29: More active today. Will start spontaneous breathing trials. He EVD elevated to 5 cm, observe neurologic function closely. 06/30: Tolerating elevated EVD. Continue spontaneous breathing trials. Replace potassium today. 07/01: EVD drainage remains light yellow. Patient remains to somnolent to control airway if we extubate. She is very comfortable on spontaneous breathing trials with good respiratory mechanics and strength. Objective Vital Signs / I&O: Vital Signs 06/30/18 11:00 06/30/18 12:00 06/30/18 12:22 Temperature 99.2 F Pulse Rate 66 64 Respiratory Rate 17 14 17 Blood Pressure 131/68 110/64 Pulse Oximetry 100 100 100 06/30/18 13:00 06/30/18 14:00 06/30/18 15:00 Temperature Pulse Rate 99 H 68 80 Respiratory Rate 14 16 13 Blood Pressure 134/72 143/72 H 172/85 H Pulse Oximetry 100 100 100 06/30/18 15:06 06/30/18 16:00 06/30/18 16:12 Temperature 99.7 F H Pulse Rate 76 84 Respiratory Rate 15 11 L 15 Blood Pressure 161/75 H 140/61 Pulse Oximetry 100 100 100 06/30/18 17:00 06/30/18 18:00 06/30/18 18:15 Temperature Pulse Rate 87 89 96 H Respiratory Rate 14 17 19 Blood Pressure 129/58 L 126/56 L Pulse Oximetry 100 100 100 06/30/18 18:30 06/30/18 18:45 06/30/18 19:00 Temperature Pulse Rate 89 89 85 Respiratory Rate 15 15 17 Blood Pressure 129/58 L Pulse Oximetry 100 99 99 06/30/18 19:15 06/30/18 19:30 06/30/18 19:45 Temperature Pulse Rate 81 78 85 Respiratory Rate 15 14 18 Blood Pressure Pulse Oximetry 99 99 99 06/30/18 20:00 06/30/18 20:15 06/30/18 20:30 Temperature 99.2 F Pulse Rate 84 88 89 Respiratory Rate 20 20 19 Blood Pressure 132/64 Pulse Oximetry 99 100 100 06/30/18 20:45 06/30/18 21:00 06/30/18 21:15 Temperature Pulse Rate 87 90 89 Respiratory Rate 18 18 17 Blood Pressure 125/64 Pulse Oximetry 100 99 100 06/30/18 21:20 06/30/18 21:30 06/30/18 21:45 Temperature Pulse Rate 81 67 Respiratory Rate 20 18 14 Blood Pressure Pulse Oximetry 99 100 99 06/30/18 22:00 06/30/18 22:15 06/30/18 22:30 Temperature Pulse Rate 65 65 64 Respiratory Rate 15 14 14 Blood Pressure 132/67 Pulse Oximetry 99 99 99 06/30/18 22:45 06/30/18 23:00 06/30/18 23:15 Temperature Pulse Rate 67 68 67 Respiratory Rate 18 16 15 Blood Pressure 133/69 Pulse Oximetry 99 100 99 06/30/18 23:30 06/30/18 23:45 07/01/18 00:00 Temperature 99.8 F H Pulse Rate 76 71 72 Respiratory Rate 25 H 18 18 Blood Pressure 138/73 Pulse Oximetry 100 99 100 07/01/18 00:08 07/01/18 00:15 07/01/18 00:30 Temperature Pulse Rate 70 108 H Respiratory Rate 17 22 18 Blood Pressure Pulse Oximetry 98 99 99 07/01/18 00:45 07/01/18 01:00 07/01/18 01:15 Temperature Pulse Rate 69 69 70 Respiratory Rate 16 23 18 Blood Pressure 144/66 H Pulse Oximetry 98 99 100 07/01/18 01:30 07/01/18 01:45 07/01/18 02:00 Temperature Pulse Rate 69 69 69 Respiratory Rate 28 H 16 16 Blood Pressure 153/74 H Pulse Oximetry 99 100 100 07/01/18 02:15 07/01/18 02:30 07/01/18 02:45 Temperature Pulse Rate 69 74 68 Respiratory Rate 17 20 14 Blood Pressure Pulse Oximetry 99 100 99 07/01/18 03:00 07/01/18 03:15 07/01/18 03:30 Temperature Pulse Rate 70 68 75 Respiratory Rate 14 14 19 Blood Pressure 151/81 H Pulse Oximetry 100 100 100 07/01/18 03:45 07/01/18 04:00 07/01/18 04:15 Temperature 98.9 F Pulse Rate 75 73 74 Respiratory Rate 18 16 16 Blood Pressure 149/81 H Pulse Oximetry 100 99 100 07/01/18 04:30 07/01/18 04:45 07/01/18 05:00 Temperature Pulse Rate 73 72 69 Respiratory Rate 15 15 14 Blood Pressure 161/82 H Pulse Oximetry 100 100 100 07/01/18 05:15 07/01/18 05:30 07/01/18 05:45 Temperature Pulse Rate 70 68 67 Respiratory Rate 15 14 14 Blood Pressure Pulse Oximetry 100 100 100 07/01/18 06:00 07/01/18 07:00 07/01/18 08:24 Temperature Pulse Rate 68 66 Respiratory Rate 14 14 13 Blood Pressure 164/78 H 169/79 H Pulse Oximetry 100 100 100 Intake & Output 06/30/18 07/01/18 07/01/18 18:59 06:59 18:59 Intake Total 3430.25 / 3430.25 2072.0 / 2072.0 Output Total 540 / 540 744 / 744 Balance 2890.25 / 2890.25 1328.0 / 1328.0 Weight 91.7 kg Intake: IV 2736.25 / 2736.25 1415.0 / 1415.0 Diprivan 1000 mg/100 ml Inj 1, 100 / 100 000 mg In 100 ml @ 5 MCG/KG/MIN 2.585 mls/hr IV.CONT TITRATE PRN Rx#:[id number] NS Inj 1,000 ML @ 125 mls/hr IV 2000 / 1999 1000 / 1000 .CONT .Q8H [facility] Rx#:[id number] Cardene Inj 25 MG In NS Inj 250 21.25 / 21.25 ML @ 0 mls/hr IV.CONT TITRATE PRN Rx#:[id number] KCl 20 mEq Premix Inj 20 meq In 300 / 300 100 / 100 100 ml @ 50 mls/hr IV.SIG Q2H PRN Rx#:[id number] Depacon Inj 750 MG In NS Inj 215.0 / 215.0 215.0 / 215.0 100 ML @ 105 mls/hr IV.SIG Q8HR [facility] Rx#:[id number] Keppra 1000 mg/100 mL Premix 100 / 100 100 / 100 100 ML @ 400 mls/hr IV.SIG Q12H [facility] Rx#:[id number] Tube Feeding 574 / 574 537 / 537 Tube Irrigant 120 / 120 Other 120 / 120 Output: Urine Amount (Catheter) 450 / 450 700 / 700 Indwelling Urethral Catheter 450 / 450 700 / 700 Intracranial Drainage Right Temporoparietal Other: Date of Last Bowel Movement 06/30/18 07/01/18 # Bowel Movements 1 # Incontinent Bowel Movements 1 Result Diagrams: 06/30/18 05:28 07/01/18 03:54 Objective Remarks: HEENT/ Neuro: No sedation, orally intubated, Pupils 2 mm, reactive to light bilaterally. Localizes for 4 limbs. Does not open his eyes to stimulation. Neck: Supple. Orotracheal intubation. Chest/Pulm: Good air movement bilaterally while on SBT, no wheezing or crackles. Some clear watery secretions. CVS: S1-S2 Regular, no murmur, no JVD. GI/abdomen: Soft, nontender, nondistended, bowel sounds present, no guarding. Extremities: Warm bilaterally, no edema. Well perfused. Assessment and Plan - Assessment and Plan Plan: 67-year-old male with: Status epilepticus ICH/SDH Acute respiratory failure on mechanical ventilation Left humerus fracture History of dementia History of stroke Hypertension Plan: Neuro: Hold sedation. Keppra 1 g IV every 12 hourly. Valproate 500 mg IV every 8 hourly switched from p.o. dose at home. Follow valproate level. EEG did not reveal seizure activity. Neurology consult noted. Neurosurgery following for ICH, discussed with Dr. Jones - s/p ventriculostomy 06/24. ICPs normal. EVD challenged at 5 cm, drainage clear to light yellow Cardiovascular: Fluid balance about right. Hold antihypertensives. Pulmonary: Continue mechanical ventilation, vent bundle, bronchodilators as needed. Continue spontaneous breathing trials at 05/09. GI/liver: Tolerating tube feeds, follow prealbumin weekly. Renal/: Tube feedings for hydration, strict intake, monitor and replete electrolytes, follow BUN and creatinine. MSK: Orthopedics consult for left humerus fracture noted - nonoperative management. ID: No indication for antibiotics at this time. Watch for sepsis. Serial CBC Endocrine: SSI as needed for glycemic control if needed Heme: Follow CBC. Received K Centra to reverse Eliquis in the ER. Prophylaxis: Pepcid/SCDs. Palliative care following. Patient is DNR status at this time. Overall impression: Patient remains critically ill, requiring intubation and mechanical ventilation for treatment of the severe neurologic encephalopathy. Seizure activity appears to be controlled. Unable to wean from ventilator but will continue spontaneous trials daily. Replace electrolytes daily. May need diuresis soon. Critical care time 35 minutes aside from procedures.
--- NOTE | 2018-07-01 19:04 | P.PNNEU ---
Subjective Subjective Comments: No acute events no seizures reported Active Medications: Active Medications Acetaminophen (Tylenol) 650 mg PO Q6H PRN PRN Reason: PAIN 1-10 AND/OR FEVER >101F Albuterol (Duoneb Neb (Prn)) 1 ampul NEB Q4HR NEB PRN PRN Reason: SHORTNESS OF BREATH Amlodipine Besylate (Norvasc) 10 mg PO DAILY [facility] Last Admin: 07/01/18 08:49 Dose: 10 mg Chlorhexidine Gluconate (Peridex 0.12% Oral Kit) 15 ml OROPHARYNG BID@0800, 2000 [facility] Last Admin: 07/01/18 08:49 Dose: 15 ml Famotidine (Pepcid) 20 mg NG/OG BID [facility] Last Admin: 07/01/18 08:49 Dose: 20 mg Hydralazine HCl (Apresoline) 50 mg PO TID [facility] Last Admin: 07/01/18 14:30 Dose: 50 mg Sodium Chloride (Ns Inj) 1,000 mls @ 125 mls/hr IV.CONT .Q8H [facility] Last Admin: 07/01/18 11:40 Dose: 125 mls/hr Propofol (Diprivan 1000 Mg/100 Ml Inj) 1,000 mg in 100 mls @ 2.585 mls/hr IV.CONT TITRATE PRN; Protocol PRN Reason: Per Protocol Last Titration: 06/30/18 07:00 Dose: Infused Levetiracetam (Keppra 1000 Mg/100 Ml Premix) 100 mls @ 400 mls/hr IV.SIG Q12H [facility] Last Infusion: 07/01/18 09:03 Dose: Infused Valproate Sodium 750 mg/ (Sodium Chloride) 107.5 mls @ 105 mls/hr IV.SIG Q8HR [facility] Last Infusion: 07/01/18 06:08 Dose: Infused Nicardipine HCl 25 mg/ Sodium (Chloride) 260 mls @ 0 mls/hr IV.CONT TITRATE PRN ; Protocol PRN Reason: BLOOD PRESSURE MANAGEMENT Last Infusion: 06/30/18 07:00 Dose: Infused Magnesium Sulfate 4 gm/ Sodium (Chloride) 100 mls @ 50 mls/hr IV.SIG UNSCH PRN PRN Reason: For Magnesium 0.9 - 1.1 mg/dL Magnesium Sulfate 2 gm/ Sodium (Chloride) 100 mls @ 50 mls/hr IV.SIG UNSCH PRN PRN Reason: For Magnesium 1.2 - 1.6 mg/dL Potassium Chloride (Kcl 40 Meq Premix Inj) 40 meq in 100 mls @ 25 mls/hr IV.SIG Q2H PRN PRN Reason: For Potassium 2.8 - 3.2 mEq/L Potassium Chloride (Kcl 20 Meq Premix Inj) 20 meq in 100 mls @ 50 mls/hr IV.SIG Q2H PRN PRN Reason: For Potassium 3.3 - 3.5 mEq/L Last Admin: 07/01/18 11:40 Dose: 50 mls/hr Potassium Chloride (Kcl 40 Meq Premix Inj) 40 meq in 100 mls @ 25 mls/hr IV.SIG UNSCH PRN PRN Reason: For Potassium 3.3 - 3.5 mEq/L Potassium Chloride (Kcl 20 Meq Premix Inj) 20 meq in 100 mls @ 50 mls/hr IV.SIG Q2H PRN PRN Reason: For Potassium 2.8 - 3.2 mEq/L Last Infusion: 06/30/18 20:55 Dose: Infused Potassium Phosphate 30 mmol/ (Sodium Chloride) 260 mls @ 42 mls/hr IV.SIG UNSCH PRN PRN Reason: SEE LABEL COMMENTS Sodium Phosphate 30 mmol/ (Sodium Chloride) 260 mls @ 42 mls/hr IV.SIG UNSCH PRN PRN Reason: For Phosphorus < 2.5 mg/dL Magnesium Oxide (Mag-Ox) 800 mg PO UNSCH PRN PRN Reason: For Magnesium 1.2 - 1.6 mg/dL Metoprolol Tartrate (Lopressor) 25 mg PO BID [facility] Last Admin: 07/01/18 08:49 Dose: 25 mg Miscellaneous Medication () 1 each OROPHARYNG 0000,0400,1200,1600 [facility] Last Admin: 07/01/18 12:30 Dose: 1 each Morphine Sulfate (Morphine Inj) 4 mg IV.PUSH Q4H PRN PRN Reason: PAIN SCALE 6 TO 10 IF NOT RUI Last Admin: 06/29/18 23:51 Dose: 4 mg Morphine Sulfate (Morphine Inj) 2 mg IV.PUSH Q4H PRN PRN Reason: PAIN 1 TO 5 IF NOT RUI PO Last Admin: 06/26/18 22:30 Dose: 2 mg Potassium Bicarb/Potassium Chloride (K-Lyte Cl Eff) 50 meq PO UNSCH PRN PRN Reason: For Potassium 3.3 - 3.5 mEq/L Potassium Phosphate (K-Phos Original) 2,000 mg PO Q4H PRN PRN Reason: Phosphorus Less Than 2.5 mg/dL Potassium Phosphate (K-Phos Original) 2,000 mg PO UNSCH PRN PRN Reason: SEE LABEL COMMENTS Sodium Chloride (Ns Flush) 2 ml IV.FLUSH PRN PRN PRN Reason: FLUSH AFTER USING IV ACCESS Last Admin: 06/24/18 08:15 Dose: 2 ml Thiamine HCl (Vitamin B1) 100 mg PO DAILY [facility] Last Admin: 07/01/18 08:49 Dose: 100 mg Allergies/Adverse Reactions: Allergies Allergy/AdvReac Type Severity Reaction Status Date / Time strawberry Allergy Unknown Swelling Verified 06/24/18 08:08 Review of Systems unobtainable due to endotracheal tube, unobtainable due to mental status Physical Exam Vital signs: Vital Signs 06/30/18 19:15 06/30/18 19:30 06/30/18 19:45 Temperature Pulse Rate 81 78 85 Respiratory Rate 15 14 18 Blood Pressure Pulse Oximetry 99 99 99 06/30/18 20:00 06/30/18 20:15 06/30/18 20:30 Temperature 99.2 F Pulse Rate 84 88 89 Respiratory Rate 20 20 19 Blood Pressure 132/64 Pulse Oximetry 99 100 100 06/30/18 20:45 06/30/18 21:00 06/30/18 21:15 Temperature Pulse Rate 87 90 89 Respiratory Rate 18 18 17 Blood Pressure 125/64 Pulse Oximetry 100 99 100 06/30/18 21:20 06/30/18 21:30 06/30/18 21:45 Temperature Pulse Rate 81 67 Respiratory Rate 20 18 14 Blood Pressure Pulse Oximetry 99 100 99 06/30/18 22:00 06/30/18 22:15 06/30/18 22:30 Temperature Pulse Rate 65 65 64 Respiratory Rate 15 14 14 Blood Pressure 132/67 Pulse Oximetry 99 99 99 06/30/18 22:45 06/30/18 23:00 06/30/18 23:15 Temperature Pulse Rate 67 68 67 Respiratory Rate 18 16 15 Blood Pressure 133/69 Pulse Oximetry 99 100 99 06/30/18 23:30 06/30/18 23:45 07/01/18 00:00 Temperature 99.8 F H Pulse Rate 76 71 72 Respiratory Rate 25 H 18 18 Blood Pressure 138/73 Pulse Oximetry 100 99 100 07/01/18 00:08 07/01/18 00:15 07/01/18 00:30 Temperature Pulse Rate 70 108 H Respiratory Rate 17 22 18 Blood Pressure Pulse Oximetry 98 99 99 07/01/18 00:45 07/01/18 01:00 07/01/18 01:15 Temperature Pulse Rate 69 69 70 Respiratory Rate 16 23 18 Blood Pressure 144/66 H Pulse Oximetry 98 99 100 07/01/18 01:30 07/01/18 01:45 07/01/18 02:00 Temperature Pulse Rate 69 69 69 Respiratory Rate 28 H 16 16 Blood Pressure 153/74 H Pulse Oximetry 99 100 100 07/01/18 02:15 07/01/18 02:30 07/01/18 02:45 Temperature Pulse Rate 69 74 68 Respiratory Rate 17 20 14 Blood Pressure Pulse Oximetry 99 100 99 07/01/18 03:00 07/01/18 03:15 07/01/18 03:30 Temperature Pulse Rate 70 68 75 Respiratory Rate 14 14 19 Blood Pressure 151/81 H Pulse Oximetry 100 100 100 07/01/18 03:45 07/01/18 04:00 07/01/18 04:15 Temperature 98.9 F Pulse Rate 75 73 74 Respiratory Rate 18 16 16 Blood Pressure 149/81 H Pulse Oximetry 100 99 100 07/01/18 04:30 07/01/18 04:45 07/01/18 05:00 Temperature Pulse Rate 73 72 69 Respiratory Rate 15 15 14 Blood Pressure 161/82 H Pulse Oximetry 100 100 100 07/01/18 05:15 07/01/18 05:30 07/01/18 05:45 Temperature Pulse Rate 70 68 67 Respiratory Rate 15 14 14 Blood Pressure Pulse Oximetry 100 100 100 07/01/18 06:00 07/01/18 07:00 07/01/18 08:00 Temperature Pulse Rate 68 66 67 Respiratory Rate 14 14 14 Blood Pressure 164/78 H 169/79 H 170/81 H Pulse Oximetry 100 100 100 07/01/18 08:24 07/01/18 09:00 07/01/18 10:00 Temperature 98.3 F Pulse Rate 72 95 H Respiratory Rate 13 12 22 Blood Pressure 186/91 H 151/78 H Pulse Oximetry 100 100 100 07/01/18 11:00 07/01/18 11:47 07/01/18 15:22 Temperature Pulse Rate 81 Respiratory Rate 15 16 12 Blood Pressure 122/63 Pulse Oximetry 99 98 98 Intake & Output 07/01/18 07/01/18 07/02/18 06:59 18:59 06:59 Intake Total 2072.0 / 2072.0 1200 / 1200 Output Total 744 / 744 Balance 1328.0 / 1328.0 1200 / 1200 Weight 91.7 kg Intake: IV 1415.0 / 1415.0 1200 / 1200 NS Inj 1,000 ML @ 125 mls/hr IV 1000 / 1000 1000 / 1000 .CONT .Q8H [facility] Rx#:[id number] KCl 20 mEq Premix Inj 20 meq In 100 / 100 100 / 100 100 ml @ 50 mls/hr IV.SIG Q2H PRN Rx#:[id number] Depacon Inj 750 MG In NS Inj 215.0 / 215.0 100 ML @ 105 mls/hr IV.SIG Q8HR [facility] Rx#:[id number] Keppra 1000 mg/100 mL Premix 100 / 100 100 / 100 100 ML @ 400 mls/hr IV.SIG Q12H [facility] Rx#:[id number] Tube Feeding 537 / 537 Tube Irrigant 120 / 120 Output: Urine Amount (Catheter) 700 / 700 Indwelling Urethral Catheter 700 / 700 Intracranial Drainage 44 / 44 Right Temporoparietal 44 / 44 Other: Date of Last Bowel Movement 07/01/18 07/01/18 # Incontinent Bowel Movements 1 Narrative: GENERAL: in NAD, SKIN: Warm and dry. HEAD: Atraumatic. Normocephalic. EYES: Pupils equal and round. No scleral icterus. ENT: No nasal bleeding or discharge. NECK: Trachea midline. No JVD. CARDIOVASCULAR: Regular rate and rhythm. RESPIRATORY: Intubated. not following, rt ICP drain in place grimaces, ou appear equal and reactive, withdraws flexion with ue rt>left, roberto le to gravity - Constitutional no acute distress - Routine HEENT Exam Head: Present: normocephalic - Urinary Catheter Management Indwelling Urethral Catheter Cath placed during this visit: yes Reason for continuing: Acute urinary retention Insertion date: 06/24/18 Insertion time: 09:50 Objective Laboratory Results - last 24 hr 07/01/18 07/01/18 07/01/18 00:07 03:54 11:43 Sodium 143 Potassium 3.5 Chloride 111 H Carbon Dioxide 26.0 Anion Gap 6 BUN 18 Creatinine 0.52 L Estimated GFR Greater than 89 POC Glucose 105 100 Random Glucose 113 H Calcium 8.2 L 07/01/18 18:50 Sodium Potassium Chloride Carbon Dioxide Anion Gap BUN Creatinine Estimated GFR POC Glucose 114 H Random Glucose Calcium Review/Management - Diagnosis (1) Encephalomalacia Code(s): G93.89 - Other specified disorders of brain Status: Acute Current Visit: Yes (2) Dementia Code(s): F03.90 - Unspecified dementia without behavioral disturbance Status: Acute Current Visit: Yes (3) Intractable seizure disorder Code(s): G40.919 - Epilepsy, unspecified, intractable, without status epilepticus Status: Acute Current Visit: Yes (4) ICH (intracerebral hemorrhage) Code(s): I61.9 - Nontraumatic intracerebral hemorrhage, unspecified Status: Acute Current Visit: Yes - Review/Management Plan: Intracranial hemorrhage. rt frontal hemorrhage, previous right posterior MCA encephalomalacia and left MCA encephalomalacia Seizures Probable underlying vascular dementia stimulus invoked tremors Recommendation f/u depakote level; last level 06/30 therapeutic neuro prognosis guarded with underlying dementia and previous strokes. higher likelihood of full care appreciate palliative care (4) ICH (intracerebral hemorrhage) Qualifiers: Intracerebral hemorrhage etiology: nontraumatic Cerebral hemorrhage location : multiple localized areas of cerebrum Laterality: right Qualified Code(s): I61.6 - Nontraumatic intracerebral hemorrhage, multiple localized
--- NOTE | 2018-07-01 21:18 | P.PNNS ---
Subjective Interval history: 67-year-old male with a medical history significant for dementia, seizure disorder, previous stroke, hypertension who was brought to the ER from long term after he had multiple seizures this morning. On arrival in the ER he appeared to be seizing and was intubated by ER physician and placed on mechanical ventilation and sedated with propofol. Head CT done in the ER revealed left frontal intraparenchymal bleed with subdural hemorrhage. Patient was also noted to have a left humerus neck fracture on x-ray. He reportedly has been falling at the long term multiple times. Patient has been on Eliquis at home and he received K Centra following arrival to the ER for reversal. 07/01: Increased EVD level to 15cm H20 today. EVD drainage remains light yellow. Patient open his eyes, still too sleepy to control airway if we extubate. She is very comfortable on spontaneous breathing trials Physical Exam Vital signs: Vital Signs 06/30/18 21:15 06/30/18 21:20 06/30/18 21:30 Temperature Pulse Rate 89 81 Respiratory Rate 17 20 18 Blood Pressure Pulse Oximetry 100 99 100 06/30/18 21:45 06/30/18 22:00 06/30/18 22:15 Temperature Pulse Rate 67 65 65 Respiratory Rate 14 15 14 Blood Pressure 132/67 Pulse Oximetry 99 99 99 06/30/18 22:30 06/30/18 22:45 06/30/18 23:00 Temperature Pulse Rate 64 67 68 Respiratory Rate 14 18 16 Blood Pressure 133/69 Pulse Oximetry 99 99 100 06/30/18 23:15 06/30/18 23:30 06/30/18 23:45 Temperature Pulse Rate 67 76 71 Respiratory Rate 15 25 H 18 Blood Pressure Pulse Oximetry 99 100 99 07/01/18 00:00 07/01/18 00:08 07/01/18 00:15 Temperature 99.8 F H Pulse Rate 72 70 Respiratory Rate 18 17 22 Blood Pressure 138/73 Pulse Oximetry 100 98 99 07/01/18 00:30 07/01/18 00:45 07/01/18 01:00 Temperature Pulse Rate 108 H 69 69 Respiratory Rate 18 16 23 Blood Pressure 144/66 H Pulse Oximetry 99 98 99 07/01/18 01:15 07/01/18 01:30 07/01/18 01:45 Temperature Pulse Rate 70 69 69 Respiratory Rate 18 28 H 16 Blood Pressure Pulse Oximetry 100 99 100 07/01/18 02:00 07/01/18 02:15 07/01/18 02:30 Temperature Pulse Rate 69 69 74 Respiratory Rate 16 17 20 Blood Pressure 153/74 H Pulse Oximetry 100 99 100 07/01/18 02:45 07/01/18 03:00 07/01/18 03:15 Temperature Pulse Rate 68 70 68 Respiratory Rate 14 14 14 Blood Pressure 151/81 H Pulse Oximetry 99 100 100 07/01/18 03:30 07/01/18 03:45 07/01/18 04:00 Temperature 98.9 F Pulse Rate 75 75 73 Respiratory Rate 19 18 16 Blood Pressure 149/81 H Pulse Oximetry 100 100 99 07/01/18 04:15 07/01/18 04:30 07/01/18 04:45 Temperature Pulse Rate 74 73 72 Respiratory Rate 16 15 15 Blood Pressure Pulse Oximetry 100 100 100 07/01/18 05:00 07/01/18 05:15 07/01/18 05:30 Temperature Pulse Rate 69 70 68 Respiratory Rate 14 15 14 Blood Pressure 161/82 H Pulse Oximetry 100 100 100 07/01/18 05:45 07/01/18 06:00 07/01/18 07:00 Temperature Pulse Rate 67 68 66 Respiratory Rate 14 14 14 Blood Pressure 164/78 H 169/79 H Pulse Oximetry 100 100 100 07/01/18 08:00 07/01/18 08:24 07/01/18 09:00 Temperature 98.3 F Pulse Rate 67 72 Respiratory Rate 14 13 12 Blood Pressure 170/81 H 186/91 H Pulse Oximetry 100 100 100 07/01/18 10:00 07/01/18 11:00 07/01/18 11:47 Temperature Pulse Rate 95 H 81 Respiratory Rate 22 15 16 Blood Pressure 151/78 H 122/63 Pulse Oximetry 100 99 98 07/01/18 12:00 07/01/18 13:00 07/01/18 14:00 Temperature 99.1 F Pulse Rate 75 74 75 Respiratory Rate 14 14 13 Blood Pressure 108/53 L 111/58 L 112/56 L Pulse Oximetry 98 98 99 07/01/18 15:00 07/01/18 15:22 07/01/18 16:00 Temperature 100.7 F H Pulse Rate 70 73 Respiratory Rate 13 12 14 Blood Pressure 111/56 L 106/54 L Pulse Oximetry 99 98 100 07/01/18 17:00 07/01/18 18:40 Temperature Pulse Rate 68 61 Respiratory Rate 13 11 L Blood Pressure 94/54 L 102/57 L Pulse Oximetry 99 100 Intake & Output 07/01/18 07/01/18 07/02/18 06:59 18:59 06:59 Intake Total 2072.0 / 2072.0 2151.5 / 2151.5 950 / 950 Output Total 744 / 744 1045 / 1045 Balance 1328.0 / 1328.0 1106.5 / 1106.5 950 / 950 Weight 91.7 kg Intake: IV 1415.0 / 1415.0 1407.5 / 1407.5 950 / 950 NS Inj 1,000 ML @ 125 mls/hr IV 1000 / 1000 1000 / 1000 950 / 950 .CONT .Q8H [facility] Rx#:[id number] KCl 20 mEq Premix Inj 20 meq In 100 / 100 200 / 200 100 ml @ 50 mls/hr IV.SIG Q2H PRN Rx#:[id number] Depacon Inj 750 MG In NS Inj 215.0 / 215.0 107.5 / 107.5 100 ML @ 105 mls/hr IV.SIG Q8HR [facility] Rx#:[id number] Keppra 1000 mg/100 mL Premix 100 / 100 100 / 100 100 ML @ 400 mls/hr IV.SIG Q12H [facility] Rx#:[id number] Tube Feeding 537 / 537 654 / 654 Tube Irrigant 120 / 120 Other 90 / 90 Output: Urine Amount (Catheter) 700 / 700 975 / 975 Indwelling Urethral Catheter 700 / 700 975 / 975 Intracranial Drainage 44 44 70 / 70 Right Temporoparietal 44 / 44 70 / 70 Other: Date of Last Bowel Movement 07/01/18 07/01/18 # Bowel Movements 2 # Incontinent Bowel Movements 1 Narrative: The patient is intubated and sedated. Open eyes spontaneously. Localizes to painful stimuli with right side. Cranial Nerves: Pupils equal, 3 mm round, reactive to light. Eyes appear conjugated. There was no nystagmus, no papilledema. Face musculature appeared symmetrical at rest. Face sensation, olfaction, and hearing cannot be adequately assessed due to the patient's neurological condition. The patient has a corneal reflex. The patient has a gag reflex. The sternocleidomastoid and trapezius were symmetrical. Cervical Spine: The patient's neck is soft, supple, without nuchal rigidity. Motor: His muscle tone and bulk are normal on the right side. He moves purposefully right upper and lower extremities, with left hemiparesis. Reflexes: Deep tendon reflexes are trace There is a right plantar flexion response with left Babinsky. There is no clonus . Sensory: On examination there there is response to painful stimuli, purposefully right upper and lower extremities, with left hemiparesis. Cerebellar: Examination cannot be adequately assessed due to the patient's neurological condition. Lungs: clear Heart: Regular rhythm and rate Skin: warm and dry - Urinary Catheter Management Indwelling Urethral Catheter Cath placed during this visit: yes Reason for continuing: Acute urinary retention Insertion date: 06/24/18 Insertion time: 09:50 Assessment and Plan - Assessment (1) Intractable seizure disorder Code(s): G40.919 - Epilepsy, unspecified, intractable, without status epilepticus Status: Acute Plan: 67-year-old male with: Status epilepticus ICH/SDH Acute respiratory failure on mechanical ventilation Left humerus fracture History of dementia History of stroke Hypertension Plan: Neuro: Continue neuro checks, hold sedation. Chalenging ventriculostomy catheter , increase to 15 cm H2O. Continue Keppra 1 g IV every 12 hourly. Continue Valproate 500 mg IV every 8 hourly switched from p.o. dose at home. Follow valproate level. EEG did not reveal seizure activity. Neurology consult noted. ICPs remain normal. Cardiovascular: Fluid balance about right. Hold antihypertensives. Pulmonary: Continue mechanical ventilation, vent bundle, bronchodilators as needed. Continue spontaneous breathing trials at 10/5. GI/liver: Tolerating tube feeds, follow prealbumin weekly. Renal/: Tube feedings for hydration, strict intake, monitor and replete electrolytes, follow BUN and creatinine. Orthopedics consult for left humerus fracture noted - nonoperative management. ID: No indication for antibiotics at this time. Watch for sepsis. Serial CBC Endocrine: SSI as needed for glycemic control if needed Heme: Follow CBC. Received K Centra to reverse Eliquis in the ER. Prophylaxis: Pepcid for GI prophylaxis Jd hose and SCDs. Palliative care following. (2) ICH (intracerebral hemorrhage) Code(s): I61.9 - Nontraumatic intracerebral hemorrhage, unspecified Status: Acute Qualifiers: Intracerebral hemorrhage etiology: nontraumatic Cerebral hemorrhage location: multiple localized areas of cerebrum Laterality: right Qualified Code(s): I61.6 - Nontraumatic intracerebral hemorrhage, multiple localized (3) Encephalomalacia Code(s): G93.89 - Other specified disorders of brain Status: Acute (4) Dementia Code(s): F03.90 - Unspecified dementia without behavioral disturbance Status: Acute - Plan A: 67 y/o M with right frontal ICH and IVH. s/p Ventriculostomy drain. P: Continue to monitor neuro exam closely. Continue with current care Continue with ventriculostomy drain. Wean sedation and Vent as vitals allow and as tolerated. 06/[address] shows stable. EVD at 0 will raise to 5 tomorrow after Versed wears off. ICPs stable 06/29 Raise EVD to 5 above EAC today, start to challenge. Last shift 100cc out at 0 above, ICP 0-2 06/30 cont challenge ventriculostomy drain - raise to 10 cm H20, cont monitor ICPs. cont neuro checks and f/u exam. ok to start sq lovenox for dvt prophylaxis
[2018-07-01 21:47] LABS: Potassium 3.7 meq/L (3.5-5.1)
[2018-07-02] MEDS: Oral Hygiene Kit OROPHARYNG SCH ×5 (00:38→23:27)
[2018-07-02] MEDS: Metoprolol Tartrate 25 MG Tablet PO SCH ×3 (00:38→21:02)
[2018-07-02] MEDS: Sod Chloride 0.9% Inj 1,000 ML IV.CONT SCH ×4 (00:39→23:27)
[2018-07-02 04:05] LABS: Anion Gap 5 meq/L (5-15); Blood Urea Nitrogen 17 mg/dL (7-18); Calcium 8.1 mg/dL (8.5-10.1); Carbon Dioxide 26.6 meq/L (21.0-32.0); Chloride 110 meq/L (98-107); Glomerular Filtration Rate Greater Than 89 mL/min (>89); Glucose,Random 103 mg/dL (74-106); Potassium 3.5 meq/L (3.5-5.1); Sodium 142 meq/L (136-145)
[2018-07-02] MEDS: Valproate Inj 750 MG in Sodium Chlor 0.9% Inj 100 ML IV.SIG SCH ×3 (05:30→21:02)
[2018-07-02] MEDS: Chlorhexidine 0.12% Oral Kit 15 ML UDC OROPHARYNG SCH ×2 (07:45→19:47)
--- NOTE | 2018-07-02 08:52 | P.PNNEU ---
Subjective Subjective Comments: No acute events, no seizures Active Medications: Active Medications Acetaminophen (Tylenol) 650 mg PO Q6H PRN PRN Reason: PAIN 1-10 AND/OR FEVER >101F Albuterol (Duoneb Neb (Prn)) 1 ampul NEB Q4HR NEB PRN PRN Reason: SHORTNESS OF BREATH Amlodipine Besylate (Norvasc) 10 mg PO DAILY [facility] Last Admin: 07/01/18 08:49 Dose: 10 mg Chlorhexidine Gluconate (Peridex 0.12% Oral Kit) 15 ml OROPHARYNG BID@0800, 2000 [facility] Last Admin: 07/01/18 21:04 Dose: 15 ml Famotidine (Pepcid) 20 mg NG/OG BID [facility] Last Admin: 07/01/18 21:03 Dose: 20 mg Hydralazine HCl (Apresoline) 50 mg PO TID [facility] Last Admin: 07/01/18 19:03 Dose: Not Given Sodium Chloride (Ns Inj) 1,000 mls @ 125 mls/hr IV.CONT .Q8H [facility] Last Admin: 07/02/18 00:39 Dose: 125 mls/hr Propofol (Diprivan 1000 Mg/100 Ml Inj) 1,000 mg in 100 mls @ 2.585 mls/hr IV.CONT TITRATE PRN; Protocol PRN Reason: Per Protocol Last Titration: 06/30/18 07:00 Dose: Infused Levetiracetam (Keppra 1000 Mg/100 Ml Premix) 100 mls @ 400 mls/hr IV.SIG Q12H [facility] Last Infusion: 07/01/18 21:19 Dose: Infused Valproate Sodium 750 mg/ (Sodium Chloride) 107.5 mls @ 105 mls/hr IV.SIG Q8HR [facility] Last Infusion: 07/02/18 07:00 Dose: Infused Nicardipine HCl 25 mg/ Sodium (Chloride) 260 mls @ 0 mls/hr IV.CONT TITRATE PRN ; Protocol PRN Reason: BLOOD PRESSURE MANAGEMENT Last Infusion: 06/30/18 07:00 Dose: Infused Magnesium Sulfate 4 gm/ Sodium (Chloride) 100 mls @ 50 mls/hr IV.SIG UNSCH PRN PRN Reason: For Magnesium 0.9 - 1.1 mg/dL Magnesium Sulfate 2 gm/ Sodium (Chloride) 100 mls @ 50 mls/hr IV.SIG UNSCH PRN PRN Reason: For Magnesium 1.2 - 1.6 mg/dL Potassium Chloride (Kcl 40 Meq Premix Inj) 40 meq in 100 mls @ 25 mls/hr IV.SIG Q2H PRN PRN Reason: For Potassium 2.8 - 3.2 mEq/L Potassium Chloride (Kcl 20 Meq Premix Inj) 20 meq in 100 mls @ 50 mls/hr IV.SIG Q2H PRN PRN Reason: For Potassium 3.3 - 3.5 mEq/L Last Infusion: 07/01/18 14:00 Dose: Infused Potassium Chloride (Kcl 40 Meq Premix Inj) 40 meq in 100 mls @ 25 mls/hr IV.SIG UNSCH PRN PRN Reason: For Potassium 3.3 - 3.5 mEq/L Potassium Chloride (Kcl 20 Meq Premix Inj) 20 meq in 100 mls @ 50 mls/hr IV.SIG Q2H PRN PRN Reason: For Potassium 2.8 - 3.2 mEq/L Last Infusion: 06/30/18 20:55 Dose: Infused Potassium Phosphate 30 mmol/ (Sodium Chloride) 260 mls @ 42 mls/hr IV.SIG UNSCH PRN PRN Reason: SEE LABEL COMMENTS Sodium Phosphate 30 mmol/ (Sodium Chloride) 260 mls @ 42 mls/hr IV.SIG UNSCH PRN PRN Reason: For Phosphorus < 2.5 mg/dL Magnesium Oxide (Mag-Ox) 800 mg PO UNSCH PRN PRN Reason: For Magnesium 1.2 - 1.6 mg/dL Metoprolol Tartrate (Lopressor) 25 mg PO BID [facility] Last Admin: 07/02/18 00:38 Dose: Not Given Miscellaneous Medication () 1 each OROPHARYNG 0000,0400,1200,1600 [facility] Last Admin: 07/02/18 04:11 Dose: 1 each Morphine Sulfate (Morphine Inj) 4 mg IV.PUSH Q4H PRN PRN Reason: PAIN SCALE 6 TO 10 IF NOT RUI Last Admin: 06/29/18 23:51 Dose: 4 mg Morphine Sulfate (Morphine Inj) 2 mg IV.PUSH Q4H PRN PRN Reason: PAIN 1 TO 5 IF NOT RUI PO Last Admin: 06/26/18 22:30 Dose: 2 mg Potassium Bicarb/Potassium Chloride (K-Lyte Cl Eff) 50 meq PO UNSCH PRN PRN Reason: For Potassium 3.3 - 3.5 mEq/L Potassium Phosphate (K-Phos Original) 2,000 mg PO Q4H PRN PRN Reason: Phosphorus Less Than 2.5 mg/dL Potassium Phosphate (K-Phos Original) 2,000 mg PO UNSCH PRN PRN Reason: SEE LABEL COMMENTS Sodium Chloride (Ns Flush) 2 ml IV.FLUSH PRN PRN PRN Reason: FLUSH AFTER USING IV ACCESS Last Admin: 06/24/18 08:15 Dose: 2 ml Thiamine HCl (Vitamin B1) 100 mg PO DAILY [facility] Last Admin: 07/01/18 08:49 Dose: 100 mg Allergies/Adverse Reactions: Allergies Allergy/AdvReac Type Severity Reaction Status Date / Time strawberry Allergy Unknown Swelling Verified 06/24/18 08:08 Review of Systems unobtainable due to endotracheal tube, unobtainable due to mental status Physical Exam Vital signs: Vital Signs 07/01/18 09:00 07/01/18 10:00 07/01/18 11:00 Temperature 98.3 F Pulse Rate 72 95 H 81 Respiratory Rate 12 22 15 Blood Pressure 186/91 H 151/78 H 122/63 Pulse Oximetry 100 100 99 07/01/18 11:47 07/01/18 12:00 07/01/18 13:00 Temperature 99.1 F Pulse Rate 75 74 Respiratory Rate 16 14 14 Blood Pressure 108/53 L 111/58 L Pulse Oximetry 98 98 98 07/01/18 14:00 07/01/18 15:00 07/01/18 15:22 Temperature Pulse Rate 75 70 Respiratory Rate 13 13 12 Blood Pressure 112/56 L 111/56 L Pulse Oximetry 99 99 98 07/01/18 16:00 07/01/18 17:00 07/01/18 18:40 Temperature 100.7 F H Pulse Rate 73 68 61 Respiratory Rate 14 13 11 L Blood Pressure 106/54 L 94/54 L 102/57 L Pulse Oximetry 100 99 100 07/01/18 19:15 07/01/18 19:30 07/01/18 19:40 Temperature Pulse Rate 65 67 64 Respiratory Rate 13 13 12 Blood Pressure 113/55 L Pulse Oximetry 100 100 100 07/01/18 19:45 07/01/18 20:00 07/01/18 20:15 Temperature 100.0 F H Pulse Rate 64 64 66 Respiratory Rate 13 14 14 Blood Pressure Pulse Oximetry 100 100 100 07/01/18 20:30 07/01/18 20:40 07/01/18 20:45 Temperature Pulse Rate 63 63 63 Respiratory Rate 14 16 14 Blood Pressure 113/62 Pulse Oximetry 99 99 100 07/01/18 21:00 07/01/18 21:15 07/01/18 21:30 Temperature Pulse Rate 61 61 60 Respiratory Rate 15 14 14 Blood Pressure Pulse Oximetry 99 99 100 07/01/18 21:40 07/01/18 21:45 07/01/18 22:00 Temperature Pulse Rate 64 63 60 Respiratory Rate 14 14 14 Blood Pressure 113/60 Pulse Oximetry 99 99 99 07/01/18 22:15 07/01/18 22:30 07/01/18 22:40 Temperature Pulse Rate 62 58 L 60 Respiratory Rate 14 14 14 Blood Pressure 112/62 Pulse Oximetry 100 100 100 07/01/18 22:45 07/01/18 23:00 07/01/18 23:15 Temperature Pulse Rate 58 L 56 L 58 L Respiratory Rate 14 14 14 Blood Pressure Pulse Oximetry 100 100 100 07/01/18 23:30 07/01/18 23:40 07/01/18 23:45 Temperature Pulse Rate 59 L 59 L 58 L Respiratory Rate 14 14 14 Blood Pressure 121/62 Pulse Oximetry 100 100 100 07/02/18 00:00 07/02/18 00:15 07/02/18 00:30 Temperature 99.5 F Pulse Rate 60 61 67 Respiratory Rate 14 14 19 Blood Pressure Pulse Oximetry 100 100 100 07/02/18 00:40 07/02/18 00:45 07/02/18 00:51 Temperature Pulse Rate 67 64 Respiratory Rate 16 15 15 Blood Pressure 129/65 Pulse Oximetry 100 99 100 07/02/18 01:00 07/02/18 01:15 07/02/18 01:30 Temperature Pulse Rate 66 65 66 Respiratory Rate 15 18 17 Blood Pressure Pulse Oximetry 100 100 100 07/02/18 01:40 07/02/18 01:45 07/02/18 02:00 Temperature Pulse Rate 64 66 65 Respiratory Rate 17 16 16 Blood Pressure 118/64 Pulse Oximetry 100 100 100 07/02/18 02:15 07/02/18 02:30 07/02/18 02:40 Temperature Pulse Rate 67 65 65 Respiratory Rate 16 14 14 Blood Pressure 129/67 Pulse Oximetry 100 100 100 07/02/18 02:45 07/02/18 03:00 07/02/18 03:15 Temperature Pulse Rate 66 66 81 Respiratory Rate 14 14 16 Blood Pressure Pulse Oximetry 100 100 93 L 07/02/18 03:30 07/02/18 03:40 07/02/18 03:45 Temperature Pulse Rate 73 74 74 Respiratory Rate 16 18 19 Blood Pressure 139/66 Pulse Oximetry 95 93 L 94 L 07/02/18 04:00 07/02/18 04:15 07/02/18 04:19 Temperature 99.0 F Pulse Rate 73 71 Respiratory Rate 17 17 17 Blood Pressure Pulse Oximetry 95 96 96 07/02/18 04:30 07/02/18 04:40 07/02/18 04:45 Temperature Pulse Rate 71 71 72 Respiratory Rate 16 20 16 Blood Pressure 141/77 H Pulse Oximetry 97 98 98 07/02/18 05:00 07/02/18 05:15 07/02/18 05:30 Temperature Pulse Rate 73 74 73 Respiratory Rate 14 16 16 Blood Pressure Pulse Oximetry 98 98 98 07/02/18 05:40 07/02/18 05:45 07/02/18 06:00 Temperature Pulse Rate 75 71 74 Respiratory Rate 16 15 15 Blood Pressure 150/76 H Pulse Oximetry 99 99 98 07/02/18 08:42 Temperature Pulse Rate Respiratory Rate 15 Blood Pressure Pulse Oximetry 98 Intake & Output 07/01/18 07/02/18 07/02/18 18:59 06:59 18:59 Intake Total 2151.5 / 2151.5 2774.5 / 2774.5 107.5 / 107.5 Output Total 1045 / 1045 643 / 643 Balance 1106.5 / 1106.5 2131.5 / 2131.5 107.5 / 107.5 Weight 95 kg Intake: IV 1407.5 / 1407.5 2157.5 / 2157.5 107.5 / 107.5 NS Inj 1,000 ML @ 125 mls/hr IV 1000 / 1000 1950 / 1950 .CONT .Q8H [facility] Rx#:[id number] KCl 20 mEq Premix Inj 20 meq In 200 / 200 100 ml @ 50 mls/hr IV.SIG Q2H PRN Rx#:[id number] Depacon Inj 750 MG In NS Inj 107.5 / 107.5 107.5 / 107.5 107.5 / 107.5 100 ML @ 105 mls/hr IV.SIG Q8HR [facility] Rx#:[id number] Keppra 1000 mg/100 mL Premix 100 / 100 100 / 100 100 ML @ 400 mls/hr IV.SIG Q12H [facility] Rx#:[id number] Tube Feeding 654 / 654 497 / 497 Tube Irrigant 120 / 120 Other 90 / 90 Output: Urine Amount (Catheter) 975 / 975 600 / 600 Indwelling Urethral Catheter 975 / 975 600 / 600 Intracranial Drainage 70 / 70 43 / 43 Right Temporoparietal 70 / 70 43 / 43 Other: Date of Last Bowel Movement 07/01/18 07/02/18 # Bowel Movements 2 1 Narrative: GENERAL: in NAD, SKIN: Warm and dry. HEAD: Atraumatic. Normocephalic. EYES: Pupils equal and round. No scleral icterus. ENT: No nasal bleeding or discharge. NECK: Trachea midline. No JVD. CARDIOVASCULAR: Regular rate and rhythm. RESPIRATORY: Intubated. Alerts, opens eyes, no gaze deviation not following, rt ICP drain in place grimaces, ou appear equal and reactive, withdraws flexion with ue rt>left, roberto le to gravity - Constitutional no acute distress - Routine HEENT Exam Head: Present: normocephalic - Urinary Catheter Management Indwelling Urethral Catheter Cath placed during this visit: yes Reason for continuing: Acute urinary retention Insertion date: 06/24/18 Insertion time: 09:50 Objective Laboratory Results - last 24 hr 07/01/18 07/01/18 07/01/18 11:43 18:50 21:12 Sodium Potassium Chloride Carbon Dioxide Anion Gap BUN Creatinine Estimated GFR POC Glucose 100 114 H Random Glucose Calcium Valproic Acid Cancelled 07/01/18 07/02/18 07/02/18 21:12 00:32 03:21 Sodium 142 Potassium 3.7 3.5 Chloride 110 H Carbon Dioxide 26.6 Anion Gap 5 BUN 17 Creatinine 0.48 L Estimated GFR Greater than 89 POC Glucose 110 Random Glucose 103 Calcium 8.1 L Valproic Acid 51 Review/Management - Diagnosis (1) Encephalomalacia Code(s): G93.89 - Other specified disorders of brain Status: Acute Current Visit: Yes (2) Dementia Code(s): F03.90 - Unspecified dementia without behavioral disturbance Status: Acute Current Visit: Yes (3) Intractable seizure disorder Code(s): G40.919 - Epilepsy, unspecified, intractable, without status epilepticus Status: Acute Current Visit: Yes (4) ICH (intracerebral hemorrhage) Code(s): I61.9 - Nontraumatic intracerebral hemorrhage, unspecified Status: Acute Current Visit: Yes - Review/Management Plan: Intracranial hemorrhage. rt frontal hemorrhage, previous right posterior MCA encephalomalacia and left MCA encephalomalacia Seizures Probable underlying vascular dementia stimulus invoked tremors On Keppra, Depakote Recommendation Depakote level 51 Follow-up EEG Possible trach PEG if he can be extubated and if POA desires continued aggressive medical care neuro prognosis guarded with underlying dementia and previous strokes. higher likelihood of full care appreciate palliative care (4) ICH (intracerebral hemorrhage) Qualifiers: Intracerebral hemorrhage etiology: nontraumatic Cerebral hemorrhage location : multiple localized areas of cerebrum Laterality: right Qualified Code(s): I61.6 - Nontraumatic intracerebral hemorrhage, multiple localized
[2018-07-02] MEDS: levETIRAcetam 1000mg/100mL Inj 100 ML IV.SIG SCH ×2 (10:05→19:47)
[2018-07-02] MEDS: hydrALAZINE 50 MG Tablet PO SCH ×2 (10:05→13:35)
[2018-07-02] MEDS: Famotidine 20 MG Tablet NG/OG SCH ×2 (10:06→21:02)
[2018-07-02] MEDS: amLODIPine 10 MG Tablet PO SCH (10:06)
--- NOTE | 2018-07-02 11:03 | P.PNNS ---
Subjective Interval history: remains intubated, reports to open eyes. when seen, EVD was at 11 - discussed with nursing does not know what happened. however, ICPs remained stable overnight. critical care unable to wean off the ventilator, may need tracheostomy. Physical Exam Vital signs: Vital Signs 07/01/18 11:47 07/01/18 12:00 07/01/18 13:00 Temperature 99.1 F Pulse Rate 75 74 Respiratory Rate 16 14 14 Blood Pressure 108/53 L 111/58 L Pulse Oximetry 98 98 98 07/01/18 14:00 07/01/18 15:00 07/01/18 15:22 Temperature Pulse Rate 75 70 Respiratory Rate 13 13 12 Blood Pressure 112/56 L 111/56 L Pulse Oximetry 99 99 98 07/01/18 16:00 07/01/18 17:00 07/01/18 18:40 Temperature 100.7 F H Pulse Rate 73 68 61 Respiratory Rate 14 13 11 L Blood Pressure 106/54 L 94/54 L 102/57 L Pulse Oximetry 100 99 100 07/01/18 19:15 07/01/18 19:30 07/01/18 19:40 Temperature Pulse Rate 65 67 64 Respiratory Rate 13 13 12 Blood Pressure 113/55 L Pulse Oximetry 100 100 100 07/01/18 19:45 07/01/18 20:00 07/01/18 20:15 Temperature 100.0 F H Pulse Rate 64 64 66 Respiratory Rate 13 14 14 Blood Pressure Pulse Oximetry 100 100 100 07/01/18 20:30 07/01/18 20:40 07/01/18 20:45 Temperature Pulse Rate 63 63 63 Respiratory Rate 14 16 14 Blood Pressure 113/62 Pulse Oximetry 99 99 100 07/01/18 21:00 07/01/18 21:15 07/01/18 21:30 Temperature Pulse Rate 61 61 60 Respiratory Rate 15 14 14 Blood Pressure Pulse Oximetry 99 99 100 07/01/18 21:40 07/01/18 21:45 07/01/18 22:00 Temperature Pulse Rate 64 63 60 Respiratory Rate 14 14 14 Blood Pressure 113/60 Pulse Oximetry 99 99 99 07/01/18 22:15 07/01/18 22:30 07/01/18 22:40 Temperature Pulse Rate 62 58 L 60 Respiratory Rate 14 14 14 Blood Pressure 112/62 Pulse Oximetry 100 100 100 07/01/18 22:45 07/01/18 23:00 07/01/18 23:15 Temperature Pulse Rate 58 L 56 L 58 L Respiratory Rate 14 14 14 Blood Pressure Pulse Oximetry 100 100 100 07/01/18 23:30 07/01/18 23:40 07/01/18 23:45 Temperature Pulse Rate 59 L 59 L 58 L Respiratory Rate 14 14 14 Blood Pressure 121/62 Pulse Oximetry 100 100 100 07/02/18 00:00 07/02/18 00:15 07/02/18 00:30 Temperature 99.5 F Pulse Rate 60 61 67 Respiratory Rate 14 14 19 Blood Pressure Pulse Oximetry 100 100 100 07/02/18 00:40 07/02/18 00:45 07/02/18 00:51 Temperature Pulse Rate 67 64 Respiratory Rate 16 15 15 Blood Pressure 129/65 Pulse Oximetry 100 99 100 07/02/18 01:00 07/02/18 01:15 07/02/18 01:30 Temperature Pulse Rate 66 65 66 Respiratory Rate 15 18 17 Blood Pressure Pulse Oximetry 100 100 100 07/02/18 01:40 07/02/18 01:45 07/02/18 02:00 Temperature Pulse Rate 64 66 65 Respiratory Rate 17 16 16 Blood Pressure 118/64 Pulse Oximetry 100 100 100 07/02/18 02:15 07/02/18 02:30 07/02/18 02:40 Temperature Pulse Rate 67 65 65 Respiratory Rate 16 14 14 Blood Pressure 129/67 Pulse Oximetry 100 100 100 07/02/18 02:45 07/02/18 03:00 07/02/18 03:15 Temperature Pulse Rate 66 66 81 Respiratory Rate 14 14 16 Blood Pressure Pulse Oximetry 100 100 93 L 07/02/18 03:30 07/02/18 03:40 07/02/18 03:45 Temperature Pulse Rate 73 74 74 Respiratory Rate 16 18 19 Blood Pressure 139/66 Pulse Oximetry 95 93 L 94 L 07/02/18 04:00 07/02/18 04:15 07/02/18 04:19 Temperature 99.0 F Pulse Rate 73 71 Respiratory Rate 17 17 17 Blood Pressure Pulse Oximetry 95 96 96 07/02/18 04:30 07/02/18 04:40 07/02/18 04:45 Temperature Pulse Rate 71 71 72 Respiratory Rate 16 20 16 Blood Pressure 141/77 H Pulse Oximetry 97 98 98 07/02/18 05:00 07/02/18 05:15 07/02/18 05:30 Temperature Pulse Rate 73 74 73 Respiratory Rate 14 16 16 Blood Pressure Pulse Oximetry 98 98 98 07/02/18 05:40 07/02/18 05:45 07/02/18 06:00 Temperature Pulse Rate 75 71 74 Respiratory Rate 16 15 15 Blood Pressure 150/76 H Pulse Oximetry 99 99 98 07/02/18 08:42 Temperature Pulse Rate Respiratory Rate 15 Blood Pressure Pulse Oximetry 98 Intake & Output 07/01/18 07/02/18 07/02/18 18:59 06:59 18:59 Intake Total 2151.5 / 2151.5 2774.5 / 2774.5 107.5 / 107.5 Output Total 1045 / 1045 643 / 643 Balance 1106.5 / 1106.5 2131.5 / 2131.5 107.5 / 107.5 Weight 95 kg Intake: IV 1407.5 / 1407.5 2157.5 / 2157.5 107.5 / 107.5 NS Inj 1,000 ML @ 125 mls/hr IV 1000 / 1000 1950 / 1950 .CONT .Q8H [facility] Rx#:[id number] KCl 20 mEq Premix Inj 20 meq In 200 / 200 100 ml @ 50 mls/hr IV.SIG Q2H PRN Rx#:[id number] Depacon Inj 750 MG In NS Inj 107.5 / 107.5 107.5 / 107.5 107.5 / 107.5 100 ML @ 105 mls/hr IV.SIG Q8HR [facility] Rx#:[id number] Keppra 1000 mg/100 mL Premix 100 / 100 100 / 100 100 ML @ 400 mls/hr IV.SIG Q12H [facility] Rx#:[id number] Tube Feeding 654 / 654 497 / 497 Tube Irrigant 120 / 120 Other 90 / 90 Output: Urine Amount (Catheter) 975 / 975 600 / 600 Indwelling Urethral Catheter 975 / 975 600 / 600 Intracranial Drainage 70 / 70 43 / 43 Right Temporoparietal 70 / 70 43 / 43 Other: Date of Last Bowel Movement 07/01/18 07/02/18 # Bowel Movements 2 1 Narrative: GENERAL: in NAD, intubated, mechanically ventilated SKIN: Warm and dry. HEAD: ventriculostomy drain in place, ICPs controlled EYES: Pupils equal and round. No scleral icterus. ENT: No nasal bleeding or discharge. NECK: Trachea midline. No JVD. CARDIOVASCULAR: Regular rate and rhythm. RESPIRATORY: Intubated. mechanically ventilated. NEURO: grimaces, did not open eyes to me but reported pt has. not following commands. pupils equal. not following for testing. - Urinary Catheter Management Indwelling Urethral Catheter Cath placed during this visit: yes Reason for continuing: Acute urinary retention Insertion date: 06/24/18 Insertion time: 09:50 Assessment and Plan - Assessment (1) Intractable seizure disorder Code(s): G40.919 - Epilepsy, unspecified, intractable, without status epilepticus Status: Acute Plan: 67-year-old male with: Status epilepticus ICH/SDH Acute respiratory failure on mechanical ventilation Left humerus fracture History of dementia History of stroke Hypertension Plan: Neuro: Continue neuro checks, hold sedation. Chalenging ventriculostomy catheter , increase to 10 cm H2O. Continue Keppra 1 g IV every 12 hourly. Continue Valproate 500 mg IV every 8 hourly switched from p.o. dose at home. Follow valproate level. EEG did not reveal seizure activity. Neurology consult noted. ICPs remain normal. Cardiovascular: Fluid balance about right. Hold antihypertensives. Pulmonary: Continue mechanical ventilation, vent bundle, bronchodilators as needed. Continue spontaneous breathing trials at 10/5. GI/liver: Tolerating tube feeds, follow prealbumin weekly. Renal/: Tube feedings for hydration, strict intake, monitor and replete electrolytes, follow BUN and creatinine. Orthopedics consult for left humerus fracture noted - nonoperative management. ID: No indication for antibiotics at this time. Watch for sepsis. Serial CBC Endocrine: SSI as needed for glycemic control if needed Heme: Follow CBC. Received K Centra to reverse Eliquis in the ER. Prophylaxis: Pepcid for GI prophylaxis Jd hose and SCDs. Palliative care following. The exam, history, and the medical decision-making described in the above note were completed with the assistance of the mid-level provider. I reviewed and agree with the findings presented. I attest that I had a [id number] encounter with the patient on the same day, and personally performed and documented my assessment and findings in the medical record. (2) ICH (intracerebral hemorrhage) Code(s): I61.9 - Nontraumatic intracerebral hemorrhage, unspecified Status: Acute Qualifiers: Intracerebral hemorrhage etiology: nontraumatic Cerebral hemorrhage location: multiple localized areas of cerebrum Laterality: right Qualified Code(s): I61.6 - Nontraumatic intracerebral hemorrhage, multiple localized (3) Encephalomalacia Code(s): G93.89 - Other specified disorders of brain Status: Acute (4) Dementia Code(s): F03.90 - Unspecified dementia without behavioral disturbance Status: Acute - Plan A: 67 y/o M with right frontal ICH and IVH. s/p Ventriculostomy drain. P: Continue to monitor neuro exam closely. Continue with current care Continue with ventriculostomy drain. Wean sedation and Vent as vitals allow and as tolerated. 06/[address] shows stable. EVD at 0 will raise to 5 tomorrow after Versed wears off. ICPs stable 06/29 Raise EVD to 5 above EAC today, start to challenge. Last shift 100cc out at 0 above, ICP 0-2 06/30 cont challenge ventriculostomy drain - raise to 10 cm H20, cont monitor ICPs. cont neuro checks and f/u exam. ok to start sq lovenox for dvt prophylaxis 07/02: raise EVD to 20 cm H20, cont ICP monitor, cont critical care management - vent weaning. may need trach
[2018-07-02] MEDS: Morphine Inj 4 MG/ML Vial IV.PUSH PRN (11:04)
[2018-07-02] MEDS: Acetaminophen 325 MG Tablet PO PRN (13:46)
--- NOTE | 2018-07-02 15:29 | MG ---
cc: Adrienne Davis MD AGE: [age] years old. EEG NUMBER: [id number] [id number]. Photic stimulation done. It is a repeat study. No sedation. Intubated. Admitted with seizures on Keppra, morphine, Norvasc. The background rhythm shows 1-2 Hz slowing consistent with moderate to severe slowing. Photic stimulation does not elicit any driving response. IMPRESSION: Moderate slowing of background consistent with encephalopathic process of various etiologies. Clinical correlation. Adrienne Davis MD DF/ , 02:58 PM , 03:04 PM
[2018-07-02] MEDS ORDERED: Influenza (Quadrivalent) Vaccine 0.5 ML Syringe IM ONE (16:00)
[2018-07-02] MEDS ORDERED: Sodium Chlor 0.9% Inj 500 ML IV.SIG ONE (17:00)
--- NOTE | 2018-07-02 18:40 | P.PNCC ---
Subjective Subjective Remarks/Hospital Course: 06/24: 67-year-old male with a medical history significant for dementia, seizure disorder, previous stroke, hypertension who was brought to the ER from [facility] after he had multiple seizures this morning. On arrival in the ER he appeared to be seizing and was intubated by ER physician and placed on mechanical ventilation and sedated with propofol. Head CT done in the ER revealed left frontal intraparenchymal bleed with subdural hemorrhage. Patient was also noted to have a left humerus neck fracture on x-ray. He reportedly has been falling at the [facility] multiple times. Patient has been on Eliquis at home and he received K Centra following arrival to the ER for reversal. 06/25: Remains sedated, orally intubated on mechanical ventilation. Head CT done today with new area of small subdural hemorrhage and increase in size of intraventricular hemorrhage, intraparenchymal hemorrhage same size. 06/26: Remains sedated, orally intubated on mechanical ventilation. Repeat head CT shows slight worsening of intra-cerebral hemorrhage yesterday. 06/27: Remains sedated, orally intubated on mechanical ventilation. 06/28: Endotracheal tube dislodged, replaced this morning. Oxygen saturation remained at 100% throughout. Withdraws four limbs and localizes all to pain. No obvious seizure activity. Not alert enough to extubate. 06/29: More active today. Will start spontaneous breathing trials. He EVD elevated to 5 cm, observe neurologic function closely. 06/30: Tolerating elevated EVD. Continue spontaneous breathing trials. Replace potassium today. 07/01: EVD drainage remains light yellow. Patient remains to somnolent to control airway if we extubate. She is very comfortable on spontaneous breathing trials with good respiratory mechanics and strength. 07/02: Remains encephalopathic, orally intubated on mechanical ventilation. Ventriculostomy remains in place. Objective Vital Signs / I&O: Vital Signs 07/01/18 18:40 07/01/18 19:15 07/01/18 19:30 Temperature Pulse Rate 61 65 67 Respiratory Rate 11 L 13 13 Blood Pressure 102/57 L Pulse Oximetry 100 100 100 07/01/18 19:40 07/01/18 19:45 07/01/18 20:00 Temperature 100.0 F H Pulse Rate 64 64 64 Respiratory Rate 12 13 14 Blood Pressure 113/55 L Pulse Oximetry 100 100 100 07/01/18 20:15 07/01/18 20:30 07/01/18 20:40 Temperature Pulse Rate 66 63 63 Respiratory Rate 14 14 16 Blood Pressure 113/62 Pulse Oximetry 100 99 99 07/01/18 20:45 07/01/18 21:00 07/01/18 21:15 Temperature Pulse Rate 63 61 61 Respiratory Rate 14 15 14 Blood Pressure Pulse Oximetry 100 99 99 07/01/18 21:30 07/01/18 21:40 07/01/18 21:45 Temperature Pulse Rate 60 64 63 Respiratory Rate 14 14 14 Blood Pressure 113/60 Pulse Oximetry 100 99 99 07/01/18 22:00 07/01/18 22:15 07/01/18 22:30 Temperature Pulse Rate 60 62 58 L Respiratory Rate 14 14 14 Blood Pressure Pulse Oximetry 99 100 100 07/01/18 22:40 07/01/18 22:45 07/01/18 23:00 Temperature Pulse Rate 60 58 L 56 L Respiratory Rate 14 14 14 Blood Pressure 112/62 Pulse Oximetry 100 100 100 07/01/18 23:15 07/01/18 23:30 07/01/18 23:40 Temperature Pulse Rate 58 L 59 L 59 L Respiratory Rate 14 14 14 Blood Pressure 121/62 Pulse Oximetry 100 100 100 07/01/18 23:45 07/02/18 00:00 07/02/18 00:15 Temperature 99.5 F Pulse Rate 58 L 60 61 Respiratory Rate 14 14 14 Blood Pressure Pulse Oximetry 100 100 100 07/02/18 00:30 07/02/18 00:40 07/02/18 00:45 Temperature Pulse Rate 67 67 64 Respiratory Rate 19 16 15 Blood Pressure 129/65 Pulse Oximetry 100 100 99 07/02/18 00:51 07/02/18 01:00 07/02/18 01:15 Temperature Pulse Rate 66 65 Respiratory Rate 15 15 18 Blood Pressure Pulse Oximetry 100 100 100 07/02/18 01:30 07/02/18 01:40 07/02/18 01:45 Temperature Pulse Rate 66 64 66 Respiratory Rate 17 17 16 Blood Pressure 118/64 Pulse Oximetry 100 100 100 07/02/18 02:00 07/02/18 02:15 07/02/18 02:30 Temperature Pulse Rate 65 67 65 Respiratory Rate 16 16 14 Blood Pressure Pulse Oximetry 100 100 100 07/02/18 02:40 07/02/18 02:45 07/02/18 03:00 Temperature Pulse Rate 65 66 66 Respiratory Rate 14 14 14 Blood Pressure 129/67 Pulse Oximetry 100 100 100 07/02/18 03:15 07/02/18 03:30 07/02/18 03:40 Temperature Pulse Rate 81 73 74 Respiratory Rate 16 16 18 Blood Pressure 139/66 Pulse Oximetry 93 L 95 93 L 07/02/18 03:45 07/02/18 04:00 07/02/18 04:15 Temperature 99.0 F Pulse Rate 74 73 71 Respiratory Rate 19 17 17 Blood Pressure Pulse Oximetry 94 L 95 96 07/02/18 04:19 07/02/18 04:30 07/02/18 04:40 Temperature Pulse Rate 71 71 Respiratory Rate 17 16 20 Blood Pressure 141/77 H Pulse Oximetry 96 97 98 07/02/18 04:45 07/02/18 05:00 07/02/18 05:15 Temperature Pulse Rate 72 73 74 Respiratory Rate 16 14 16 Blood Pressure Pulse Oximetry 98 98 98 07/02/18 05:30 07/02/18 05:40 07/02/18 05:45 Temperature Pulse Rate 73 75 71 Respiratory Rate 16 16 15 Blood Pressure 150/76 H Pulse Oximetry 98 99 99 07/02/18 06:00 07/02/18 07:00 07/02/18 08:00 Temperature Pulse Rate 74 79 76 Respiratory Rate 15 16 15 Blood Pressure 145/73 H 143/73 H Pulse Oximetry 98 96 98 07/02/18 08:42 07/02/18 09:00 07/02/18 10:00 Temperature Pulse Rate 77 73 Respiratory Rate 15 15 13 Blood Pressure 145/73 H 141/66 H Pulse Oximetry 98 99 98 07/02/18 11:00 07/02/18 11:53 07/02/18 12:00 Temperature Pulse Rate 68 78 Respiratory Rate 17 11 L 12 Blood Pressure 107/55 L 161/84 H Pulse Oximetry 97 97 98 07/02/18 13:00 07/02/18 14:00 07/02/18 16:32 Temperature Pulse Rate 80 72 Respiratory Rate 14 12 15 Blood Pressure 115/56 L 100/54 L Pulse Oximetry 95 97 99 Intake & Output 07/01/18 07/02/18 07/02/18 18:59 06:59 18:59 Intake Total 2151.5 / 2151.5 2774.5 / 2774.5 3542.0 / 3542.0 Output Total 1045 / 1045 643 / 643 1505 / 1505 Balance 1106.5 / 1106.5 2131.5 / 2131.5 2037.0 / 2037.0 Weight 95 kg 79.4 kg Intake: IV 1407.5 / 1407.5 2157.5 / 2157.5 2815.0 / 2815.0 NS Inj 1,000 ML @ 125 mls/hr IV 1000 / 1000 1950 / 1950 1999 / 1999 .CONT .Q8H [facility] Rx#:[id number] KCl 20 mEq Premix Inj 20 meq In 200 / 200 100 ml @ 50 mls/hr IV.SIG Q2H PRN Rx#:[id number] NS Inj 500 ML @ As Directed IV. 500 / 500 SIG BOLUS ONE Rx#:[id number] Depacon Inj 750 MG In NS Inj 107.5 / 107.5 107.5 / 107.5 215.0 / 215.0 100 ML @ 105 mls/hr IV.SIG Q8HR [facility] Rx#:[id number] Keppra 1000 mg/100 mL Premix 100 / 100 100 / 100 100 / 100 100 ML @ 400 mls/hr IV.SIG Q12H [facility] Rx#:[id number] Tube Feeding 654 / 654 497 / 497 567 / 567 Tube Irrigant 120 / 120 Other 90 / 90 160 / 160 Output: Urine Amount (Catheter) 975 / 975 600 / 600 1450 / 1450 Indwelling Urethral Catheter 975 / 975 600 / 600 1450 / 1450 Intracranial Drainage 70 / 70 43 / 43 55 / 55 Right Temporoparietal 70 / 70 43 / 43 55 / 55 Other: Date of Last Bowel Movement 07/01/18 07/02/18 07/02/18 # Bowel Movements 2 1 0 Weight On Admission 79.4 kg Result Diagrams: 06/30/18 05:28 07/02/18 03:21 Objective Remarks: HEENT/ Neuro: No sedation, orally intubated, Pupils 2 mm, reactive to light bilaterally. Localizes for 4 limbs. Does not open his eyes to stimulation. Neck: Supple. Orotracheal intubation. Chest/Pulm: Good air movement bilaterally while on SBT, no wheezing or crackles. Some clear watery secretions. CVS: S1-S2 Regular, no murmur, no JVD. GI/abdomen: Soft, nontender, nondistended, bowel sounds present, no guarding. Extremities: Warm bilaterally, no edema. Well perfused. Assessment and Plan - Assessment and Plan Plan: 67-year-old male with: Status epilepticus ICH/SDH Acute respiratory failure on mechanical ventilation Left humerus fracture History of dementia History of stroke Hypertension Plan: Neuro: Hold sedation. Keppra 1 g IV every 12 hourly. Valproate 500 mg IV every 8 hourly switched from p.o. dose at home. Follow valproate level. EEG did not reveal seizure activity. Neurology consult noted. Neurosurgery following for ICH, discussed with Dr. Jones - s/p ventriculostomy 06/24. ICPs normal. EVD challenged at 5 cm, drainage clear to light yellow Cardiovascular: Fluid balance about right. Hold antihypertensives. Given fluid bolus for hypotension. Ordered troponin, CBC, BMP, lactate for further evaluation of hypotension. Pulmonary: Continue mechanical ventilation, vent bundle, bronchodilators as needed. Continue spontaneous breathing trials at 05/09. GI/liver: Tolerating tube feeds, follow prealbumin weekly. Renal/: Tube feedings for hydration, strict intake, monitor and replete electrolytes, follow BUN and creatinine. MSK: Orthopedics consult for left humerus fracture noted - nonoperative management. ID: No indication for antibiotics at this time. Watch for sepsis. Serial CBC Endocrine: SSI as needed for glycemic control if needed Heme: Follow CBC. Received K Centra to reverse Eliquis in the ER. Prophylaxis: Pepcid/SCDs. Palliative care following. Patient is DNR status at this time. Overall impression: Patient remains critically ill, requiring intubation and mechanical ventilation for treatment of the severe neurologic encephalopathy. Seizure activity appears to be controlled. Unable to wean from ventilator but will continue spontaneous trials daily. Replace electrolytes daily. May need diuresis soon. Critical care time 35 minutes aside from procedures.
[2018-07-02] MEDS ORDERED: Sodium Chlor 0.9% Inj 500 ML IV.CONT SCH (19:00)
[2018-07-02] MEDS: Piperacil/Tazo 4.5 GM Premix 4.5 GM/100 ML BAG IV.SIG SCH (19:47)
[2018-07-02 20:47] LABS: Bacteria,Urine Rare /hpf; Bilirubin,Urine Negative (Negative); Clarity,Urine Hazy (Clear); Color,Urine Yellow (Yellw/Straw); Glucose,Urine (UA) Negative (Negative); Leukocyte Esterase,Urine Negative (Negative); Mucus,Urine Moderate /lpf (Occasional); Nitrite,Urine Negative (Negative); Specific Gravity,Urine 1.023 (1.002-1.035); Squamous Epithelial Cell,Urine <1 /hpf (0-5); Urobilinogen,Urine 4 or Greater mg/dL (Less than 2)
--- NOTE | 2018-07-02 21:02 | XR ---
EXAM DATE: 07/02/2018 8:58 PM EST AGE/SEX: 67 years / Male INDICATIONS: Shortness of breath. CLINICAL DATA: This is the patient's subsequent encounter. Patient reports that signs and symptoms h ave been present for 1 week and indicates a pain score of Nonresponsive. MEDICAL/SURGICAL HISTORY: Non-responsive. Non-responsive. COMPARISON: C, CHEST 1V SINGLE AP, 06/28/2018. . FINDINGS: Endotracheal tube is present with tip 8 cm above the jeanine. Nasogastric tube descends into the stoma ch. There is slight bibasilar parenchymal opacities similar to prior. Cardiac contours are unchanged. CONCLUSION: No significant change Electronically signed by: Jose Diaz MD 07/02/2018 9:01 PM EST
[2018-07-02 21:27] LABS: Baso % (Auto) 0.3 % (0.0-2.0); Eos % (Auto) 0.3 % (0.0-4.0); Hematocrit 27.7 % (39.0-51.0); Hemoglobin 9.6 gm/dL (13.0-17.0); Lymph # (Auto) 0.5 th/mm3 (1.0-4.8); Lymph % (Auto) 4.9 % (9.0-44.0); Mean Corpuscular HGB Conc 34.6 % (32.0-36.0); Mean Corpuscular Hemoglobin 31.8 pg (27.0-34.0); Mean Corpuscular Volume 91.8 fL (80.0-100.0); Mean Platelet Volume 7.6 fL (7.0-11.0); Mono # (Auto) 1.5 th/mm3 (0.0-0.9); Mono % (Auto) 15.7 % (0.0-8.0); Neut # (Auto) 7.8 th/mm3 (1.8-7.7); Neut % (Auto) 78.8 % (16.0-70.0); Platelet Count 88 th/mm3 (150-450); Red Blood Count 3.02 mil/mm3 (4.50-5.90); Red Cell Distribution Width 12.7 % (11.6-17.2); White Blood Count 9.8 th/mm3 (4.0-11.0)
[2018-07-02 21:37] LABS: Anion Gap 7 meq/L (5-15); Blood Urea Nitrogen 15 mg/dL (7-18); Calcium 7.8 mg/dL (8.5-10.1); Chloride 108 meq/L (98-107); Glomerular Filtration Rate Greater Than 89 mL/min (>89); Glucose,Random 121 mg/dL (74-106); Potassium 3.3 meq/L (3.5-5.1); Sodium 140 meq/L (136-145)
[2018-07-02 22:07] LABS: Lymphocytes 3 % (9-44); Metamyelocytes 1 % (0-1); Monocytes 9 % (0-8); Myelocytes 1 % (0-0); Platelet Morphology Normal (Normal); RBC Morphology Normal (Normal)
[2018-07-03] MEDS ORDERED: Sod Chloride 0.9% Inj 1,000 ML IV.SIG ONE (01:00)
[2018-07-03] MEDS: Piperacil/Tazo 4.5 GM Premix 4.5 GM/100 ML BAG IV.SIG SCH ×4 (02:24→19:46)
[2018-07-03 04:11] LABS: Hematocrit 30.4 % (39.0-51.0); Hemoglobin 10.2 gm/dL (13.0-17.0); Mean Corpuscular HGB Conc 33.7 % (32.0-36.0); Mean Corpuscular Hemoglobin 31.7 pg (27.0-34.0); Mean Corpuscular Volume 94.1 fL (80.0-100.0); Mean Platelet Volume 7.4 fL (7.0-11.0); Platelet Count 89 th/mm3 (150-450); Red Blood Count 3.22 mil/mm3 (4.50-5.90); Red Cell Distribution Width 12.6 % (11.6-17.2); White Blood Count 10.4 th/mm3 (4.0-11.0)
[2018-07-03 04:31] LABS: Alanine Aminotransferase 28 U/L (12-78); Albumin 1.7 g/dL (3.4-5.0); Anion Gap 8 meq/L (5-15); Aspartate Aminotransferase 26 U/L (15-37); Blood Urea Nitrogen 13 mg/dL (7-18); Calcium 7.9 mg/dL (8.5-10.1); Carbon Dioxide 25.5 meq/L (21.0-32.0); Chloride 109 meq/L (98-107); Glomerular Filtration Rate Greater Than 89 mL/min (>89); Glucose,Random 100 mg/dL (74-106); Potassium 3.3 meq/L (3.5-5.1); Sodium 142 meq/L (136-145)
[2018-07-03 04:34] LABS: Alkaline Phosphatase 85 U/L (45-117); Total Protein 5.1 g/dL (6.4-8.2)
[2018-07-03] MEDS: Potassium Chlor 20 mEq Premix 20 MEQ/100 ML PIGGYBACK IV.SIG PRN ×2 (04:54→15:39)
[2018-07-03] MEDS: Valproate Inj 750 MG in Sodium Chlor 0.9% Inj 100 ML IV.SIG SCH ×3 (05:03→22:26)
[2018-07-03 05:34] LABS: Eosinophils 1 % (0-4); Lymphocytes 4 % (9-44); Monocytes 12 % (0-8); Platelet Morphology Normal (Normal); Toxic Vacuolation Present
[2018-07-03 05:35] LABS: RBC Morphology Normal (Normal)
[2018-07-03] MEDS: Oral Hygiene Kit OROPHARYNG SCH ×3 (06:54→16:48)
[2018-07-03] MEDS: levETIRAcetam 1000mg/100mL Inj 100 ML IV.SIG SCH ×2 (08:06→19:46)
[2018-07-03] MEDS: Metoprolol Tartrate 25 MG Tablet PO SCH ×2 (08:07→21:21)
[2018-07-03] MEDS: amLODIPine 10 MG Tablet PO SCH (08:07)
[2018-07-03] MEDS: Famotidine 20 MG Tablet NG/OG SCH ×2 (08:07→21:22)
[2018-07-03] MEDS: Chlorhexidine 0.12% Oral Kit 15 ML UDC OROPHARYNG SCH ×2 (08:08→19:46)
[2018-07-03] MEDS: Sod Chloride 0.9% Inj 1,000 ML IV.CONT SCH ×2 (08:08→17:35)
--- NOTE | 2018-07-03 10:26 | P.PNNS ---
Subjective Interval history: caregiver in room reports seen pt open eyes and reached out for the therapist, ICPs stable overnight Physical Exam Vital signs: Vital Signs 07/02/18 11:00 07/02/18 11:53 07/02/18 12:00 Temperature Pulse Rate 68 78 Respiratory Rate 17 11 L 12 Blood Pressure 107/55 L 161/84 H Pulse Oximetry 97 97 98 07/02/18 13:00 07/02/18 14:00 07/02/18 15:00 Temperature Pulse Rate 80 72 67 Respiratory Rate 14 12 12 Blood Pressure 115/56 L 100/54 L 91/54 L Pulse Oximetry 95 97 97 07/02/18 16:00 07/02/18 16:32 07/02/18 17:00 Temperature 100.6 F H Pulse Rate 61 62 Respiratory Rate 16 15 61 H Blood Pressure 78/43 L 85/52 L Pulse Oximetry 97 99 98 07/02/18 18:00 07/02/18 18:45 07/02/18 18:50 Temperature Pulse Rate 59 L 74 72 Respiratory Rate 62 H 61 H 14 Blood Pressure 80/46 L 99/55 L Pulse Oximetry 97 98 98 07/02/18 19:00 07/02/18 19:05 07/02/18 19:15 Temperature Pulse Rate 68 67 64 Respiratory Rate 14 14 12 Blood Pressure 96/52 L Pulse Oximetry 98 97 98 07/02/18 19:20 07/02/18 19:30 07/02/18 19:35 Temperature Pulse Rate 65 64 66 Respiratory Rate 12 14 14 Blood Pressure 98/57 L 93/50 L Pulse Oximetry 98 98 97 07/02/18 19:45 07/02/18 20:00 07/02/18 20:04 Temperature 98.9 F Pulse Rate 64 69 66 Respiratory Rate 10 L 10 L 10 L Blood Pressure 97/56 L Pulse Oximetry 97 98 98 07/02/18 20:15 07/02/18 20:30 07/02/18 20:35 Temperature Pulse Rate 72 61 Respiratory Rate 10 L 48 H 14 Blood Pressure 97/53 L Pulse Oximetry 99 97 97 07/02/18 20:45 07/02/18 21:00 07/02/18 21:15 Temperature Pulse Rate 65 60 61 Respiratory Rate 14 14 14 Blood Pressure 87/53 L Pulse Oximetry 97 97 97 07/02/18 21:30 07/02/18 21:45 11/28/18 22:00 Temperature Pulse Rate 61 59 L 59 L Respiratory Rate 14 43 H 14 Blood Pressure 91/52 L 102/55 L Pulse Oximetry 98 98 98 07/02/18 22:15 07/02/18 22:30 07/02/18 22:45 Temperature Pulse Rate 58 L 65 59 L Respiratory Rate 14 14 14 Blood Pressure 115/57 L Pulse Oximetry 99 98 99 07/02/18 23:00 07/02/18 23:15 07/02/18 23:30 Temperature Pulse Rate 58 L 64 59 L Respiratory Rate 14 14 14 Blood Pressure 95/56 L 99/57 L Pulse Oximetry 99 98 97 07/02/18 23:34 07/02/18 23:45 07/03/18 00:00 Temperature 99.0 F Pulse Rate 59 L 60 Respiratory Rate 14 14 14 Blood Pressure 103/55 L Pulse Oximetry 98 98 98 07/03/18 00:15 07/03/18 00:30 07/03/18 00:45 Temperature Pulse Rate 60 59 L 60 Respiratory Rate 14 16 16 Blood Pressure 105/56 L Pulse Oximetry 98 98 98 07/03/18 01:00 07/03/18 01:15 07/03/18 01:30 Temperature Pulse Rate 60 62 64 Respiratory Rate 16 17 16 Blood Pressure 112/61 113/58 L Pulse Oximetry 98 98 98 07/03/18 01:45 07/03/18 02:00 07/03/18 02:15 Temperature Pulse Rate 66 71 66 Respiratory Rate 16 16 16 Blood Pressure 129/61 Pulse Oximetry 98 98 97 07/03/18 02:30 07/03/18 02:45 07/03/18 03:00 Temperature Pulse Rate 65 66 66 Respiratory Rate 16 16 16 Blood Pressure 108/60 108/64 Pulse Oximetry 96 96 95 07/03/18 03:15 07/03/18 03:30 07/03/18 03:45 Temperature Pulse Rate 65 72 71 Respiratory Rate 16 16 16 Blood Pressure 126/64 Pulse Oximetry 95 95 96 07/03/18 04:00 07/03/18 04:06 07/03/18 04:15 Temperature 98.9 F Pulse Rate 70 69 Respiratory Rate 16 15 16 Blood Pressure 114/57 L Pulse Oximetry 96 96 97 07/03/18 04:30 07/03/18 04:45 07/03/18 05:00 Temperature Pulse Rate 67 70 67 Respiratory Rate 16 14 14 Blood Pressure 117/72 118/66 Pulse Oximetry 98 98 98 07/03/18 05:15 07/03/18 05:30 07/03/18 05:45 Temperature Pulse Rate 67 64 67 Respiratory Rate 14 14 14 Blood Pressure 127/68 Pulse Oximetry 98 98 98 07/03/18 06:00 07/03/18 08:42 Temperature Pulse Rate 71 Respiratory Rate 14 16 Blood Pressure 126/69 Pulse Oximetry 98 99 Intake & Output 07/02/18 07/03/18 07/03/18 18:59 06:59 18:59 Intake Total 3542.0 / 3542.0 3762.0 / 3762.0 100 / 100 Output Total 1505 / 1505 611 / 611 Balance 2037.0 / 2037.0 3151.0 / 3151.0 100 / 100 Weight 79.4 kg 98.4 kg Intake: IV 2815.0 / 2815.0 3115.0 / 3115.0 100 / 100 NS Inj 1,000 ML @ 125 mls/hr IV 2000 / 2000 1000 / 1000 100 / 100 .CONT .Q8H [facility] Rx#:[id number] NS Inj 500 ML @ As Directed IV. 500 / 500 CONT BOLUS [facility] Rx#:[id number] Zosyn 4.5 GM Premix 4.5 gm In 200 / 200 100 ml @ 200 mls/hr IV.SIG Q6H [facility] Rx#:[id number] KCl 20 mEq Premix Inj 20 meq In 100 / 100 100 ml @ 50 mls/hr IV.SIG Q2H PRN Rx#:[id number] NS Inj 1,000 ML @ 999 mls/hr IV 1000 / 1000 .SIG .Q1H1M ONE Rx#:[id number] NS Inj 500 ML @ As Directed IV. 500 / 500 SIG BOLUS ONE Rx#:[id number] Depacon Inj 750 MG In NS Inj 215.0 / 215.0 215.0 / 215.0 100 ML @ 105 mls/hr IV.SIG Q8HR [facility] Rx#:[id number] Keppra 1000 mg/100 mL Premix 100 / 100 100 / 100 100 ML @ 400 mls/hr IV.SIG Q12H [facility] Rx#:[id number] Tube Feeding 567 / 567 527 / 527 Tube Irrigant 120 / 120 Other 160 / 160 Output: Urine Amount (Catheter) 1450 / 1450 600 / 600 Indwelling Urethral Catheter 1450 / 1450 600 / 600 Intracranial Drainage 55 / 55 Right Temporoparietal 55 / 55 Other: Date of Last Bowel Movement 07/01/18 07/02/18 # Bowel Movements 0 0 Weight On Admission 79.4 kg Narrative: GENERAL: in NAD, intubated SKIN: Warm and dry. HEAD: ventriculostomy drain in place at 20, no drainage, ICPs controlled EYES: Pupils equal and round. No scleral icterus. ENT: No nasal bleeding or discharge. NECK: Trachea midline. No JVD. CARDIOVASCULAR: Regular rate and rhythm. RESPIRATORY: Intubated. mechanically ventilated. NEURO: grimaces, did not open eyes to me but reported pt has. not following commands. pupils equal. not following for testing. - Urinary Catheter Management Indwelling Urethral Catheter Cath placed during this visit: yes Reason for continuing: Acute urinary retention Insertion date: 06/24/18 Insertion time: 09:50 Assessment and Plan - Assessment (1) Intractable seizure disorder Code(s): G40.919 - Epilepsy, unspecified, intractable, without status epilepticus Status: Acute Plan: 67-year-old male with: Status epilepticus ICH/SDH Acute respiratory failure on mechanical ventilation Left humerus fracture History of dementia History of stroke Hypertension Plan: Neuro: Continue neuro checks, hold sedation. Chalenging ventriculostomy catheter , increase to 10 cm H2O. Continue Keppra 1 g IV every 12 hourly. Continue Valproate 500 mg IV every 8 hourly switched from p.o. dose at home. Follow valproate level. EEG did not reveal seizure activity. Neurology consult noted. ICPs remain normal. Cardiovascular: Fluid balance about right. Hold antihypertensives. Pulmonary: Continue mechanical ventilation, vent bundle, bronchodilators as needed. Continue spontaneous breathing trials at 05/09. GI/liver: Tolerating tube feeds, follow prealbumin weekly. Renal/: Tube feedings for hydration, strict intake, monitor and replete electrolytes, follow BUN and creatinine. Orthopedics consult for left humerus fracture noted - nonoperative management. ID: No indication for antibiotics at this time. Watch for sepsis. Serial CBC Endocrine: SSI as needed for glycemic control if needed Heme: Follow CBC. Received K Centra to reverse Eliquis in the ER. Prophylaxis: Pepcid for GI prophylaxis Jd hose and SCDs. Palliative care following. The exam, history, and the medical decision-making described in the above note were completed with the assistance of the mid-level provider. I reviewed and agree with the findings presented. I attest that I had a [id number] encounter with the patient on the same day, and personally performed and documented my assessment and findings in the medical record. (2) ICH (intracerebral hemorrhage) Code(s): I61.9 - Nontraumatic intracerebral hemorrhage, unspecified Status: Acute Qualifiers: Intracerebral hemorrhage etiology: nontraumatic Cerebral hemorrhage location: multiple localized areas of cerebrum Laterality: right Qualified Code(s): I61.6 - Nontraumatic intracerebral hemorrhage, multiple localized (3) Encephalomalacia Code(s): G93.89 - Other specified disorders of brain Status: Acute (4) Dementia Code(s): F03.90 - Unspecified dementia without behavioral disturbance Status: Acute - Plan A: 67 y/o M with right frontal ICH and IVH. s/p Ventriculostomy drain. P: Continue to monitor neuro exam closely. Continue with current care Continue with ventriculostomy drain. Wean sedation and Vent as vitals allow and as tolerated. 06/[address] shows stable. EVD at 0 will raise to 5 tomorrow after Versed wears off. ICPs stable 06/29 Raise EVD to 5 above EAC today, start to challenge. Last shift 100cc out at 0 above, ICP 0-2 06/30 cont challenge ventriculostomy drain - raise to 10 cm H20, cont monitor ICPs. cont neuro checks and f/u exam. ok to start sq lovenox for dvt prophylaxis 07/02: raise EVD to 20 cm H20, cont ICP monitor, cont critical care management - vent weaning. may need trach 07/03: clamp EVD, cont ICP monitor, cont neuro checks, f/u CT Brain tomorrow morning
--- NOTE | 2018-07-03 13:16 | P.PNCC ---
Subjective Subjective Remarks/Hospital Course: 06/24: 67-year-old male with a medical history significant for dementia, seizure disorder, previous stroke, hypertension who was brought to the ER from care home after he had multiple seizures this morning. On arrival in the ER he appeared to be seizing and was intubated by ER physician and placed on mechanical ventilation and sedated with propofol. Head CT done in the ER revealed left frontal intraparenchymal bleed with subdural hemorrhage. Patient was also noted to have a left humerus neck fracture on x-ray. He reportedly has been falling at the care home multiple times. Patient has been on Eliquis at home and he received K Centra following arrival to the ER for reversal. 06/25: Remains sedated, orally intubated on mechanical ventilation. Head CT done today with new area of small subdural hemorrhage and increase in size of intraventricular hemorrhage, intraparenchymal hemorrhage same size. 06/26: Remains sedated, orally intubated on mechanical ventilation. Repeat head CT shows slight worsening of intra-cerebral hemorrhage yesterday. 06/27: Remains sedated, orally intubated on mechanical ventilation. 06/28: Endotracheal tube dislodged, replaced this morning. Oxygen saturation remained at 100% throughout. Withdraws four limbs and localizes all to pain. No obvious seizure activity. Not alert enough to extubate. 06/29: More active today. Will start spontaneous breathing trials. He EVD elevated to 5 cm, observe neurologic function closely. 06/30: Tolerating elevated EVD. Continue spontaneous breathing trials. Replace potassium today. 07/01: EVD drainage remains light yellow. Patient remains to somnolent to control airway if we extubate. She is very comfortable on spontaneous breathing trials with good respiratory mechanics and strength. 07/02: Remains encephalopathic, orally intubated on mechanical ventilation. Ventriculostomy remains in place. 07/03: Remains encephalopathic, orally intubated on mechanical ventilation. Ventriculostomy clamped today. Objective Vital Signs / I&O: Vital Signs 07/02/18 14:00 07/02/18 15:00 07/02/18 16:00 Temperature 100.6 F H Pulse Rate 72 67 61 Respiratory Rate 12 12 16 Blood Pressure 100/54 L 91/54 L 78/43 L Pulse Oximetry 97 97 97 07/02/18 16:32 07/02/18 17:00 07/02/18 18:00 Temperature Pulse Rate 62 59 L Respiratory Rate 15 61 H 62 H Blood Pressure 85/52 L 80/46 L Pulse Oximetry 99 98 97 07/02/18 18:45 07/02/18 18:50 07/02/18 19:00 Temperature Pulse Rate 74 72 68 Respiratory Rate 61 H 14 14 Blood Pressure 99/55 L Pulse Oximetry 98 98 98 07/02/18 19:05 07/02/18 19:15 07/02/18 19:20 Temperature Pulse Rate 67 64 65 Respiratory Rate 14 12 12 Blood Pressure 96/52 L 98/57 L Pulse Oximetry 97 98 98 07/02/18 19:30 07/02/18 19:35 07/02/18 19:45 Temperature Pulse Rate 64 66 64 Respiratory Rate 14 14 10 L Blood Pressure 93/50 L Pulse Oximetry 98 97 97 07/02/18 20:00 07/02/18 20:04 07/02/18 20:15 Temperature 98.9 F Pulse Rate 69 66 72 Respiratory Rate 10 L 10 L 10 L Blood Pressure 97/56 L Pulse Oximetry 98 98 99 07/02/18 20:30 07/02/18 20:35 07/02/18 20:45 Temperature Pulse Rate 61 65 Respiratory Rate 48 H 14 14 Blood Pressure 97/53 L Pulse Oximetry 97 97 97 07/02/18 21:00 07/02/18 21:15 07/02/18 21:30 Temperature Pulse Rate 60 61 61 Respiratory Rate 14 14 14 Blood Pressure 87/53 L 91/52 L Pulse Oximetry 97 97 98 07/02/18 21:45 07/02/18 22:00 07/02/18 22:15 Temperature Pulse Rate 59 L 59 L 58 L Respiratory Rate 43 H 14 14 Blood Pressure 102/55 L Pulse Oximetry 98 98 99 07/02/18 22:30 07/02/18 22:45 07/02/18 23:00 Temperature Pulse Rate 65 59 L 58 L Respiratory Rate 14 14 14 Blood Pressure 115/57 L 95/56 L Pulse Oximetry 98 99 99 07/02/18 23:15 07/02/18 23:30 07/02/18 23:34 Temperature Pulse Rate 64 59 L Respiratory Rate 14 14 14 Blood Pressure 99/57 L Pulse Oximetry 98 97 98 07/02/18 23:45 07/03/18 00:00 07/03/18 00:15 Temperature 99.0 F Pulse Rate 59 L 60 60 Respiratory Rate 14 14 14 Blood Pressure 103/55 L Pulse Oximetry 98 98 98 07/03/18 00:30 07/03/18 00:45 07/03/18 01:00 Temperature Pulse Rate 59 L 60 60 Respiratory Rate 16 16 16 Blood Pressure 105/56 L 112/61 Pulse Oximetry 98 98 98 07/03/18 01:15 07/03/18 01:30 07/03/18 01:45 Temperature Pulse Rate 62 64 66 Respiratory Rate 17 16 16 Blood Pressure 113/58 L Pulse Oximetry 98 98 98 07/03/18 02:00 07/03/18 02:15 07/03/18 02:30 Temperature Pulse Rate 71 66 65 Respiratory Rate 16 16 16 Blood Pressure 129/61 108/60 Pulse Oximetry 98 97 96 07/03/18 02:45 07/03/18 03:00 07/03/18 03:15 Temperature Pulse Rate 66 66 65 Respiratory Rate 16 16 16 Blood Pressure 108/64 Pulse Oximetry 96 95 95 07/03/18 03:30 07/03/18 03:45 07/03/18 04:00 Temperature 98.9 F Pulse Rate 72 71 70 Respiratory Rate 16 16 16 Blood Pressure 126/64 114/57 L Pulse Oximetry 95 96 96 07/03/18 04:06 07/03/18 04:15 07/03/18 04:30 Temperature Pulse Rate 69 67 Respiratory Rate 15 16 16 Blood Pressure 117/72 Pulse Oximetry 96 97 98 07/03/18 04:45 07/03/18 05:00 07/03/18 05:15 Temperature Pulse Rate 70 67 67 Respiratory Rate 14 14 14 Blood Pressure 118/66 Pulse Oximetry 98 98 98 07/03/18 05:30 07/03/18 05:45 07/03/18 06:00 Temperature Pulse Rate 64 67 71 Respiratory Rate 14 14 14 Blood Pressure 127/68 126/69 Pulse Oximetry 98 98 98 07/03/18 08:42 07/03/18 12:20 Temperature Pulse Rate Respiratory Rate 16 14 Blood Pressure Pulse Oximetry 99 97 Intake & Output 07/02/18 07/03/18 07/03/18 18:59 06:59 18:59 Intake Total 3542.0 / 3542.0 3762.0 / 3762.0 100 / 100 Output Total 1505 / 1505 611 / 611 Balance 2037.0 / 2037.0 3151.0 / 3151.0 100 / 100 Weight 79.4 kg 98.4 kg Intake: IV 2815.0 / 2815.0 3115.0 / 3115.0 100 / 100 NS Inj 1,000 ML @ 125 mls/hr IV 2000 / 2000 1000 / 1000 100 / 100 .CONT .Q8H [facility] Rx#:[id number] NS Inj 500 ML @ As Directed IV. 500 / 500 CONT BOLUS [facility] Rx#:[id number] Zosyn 4.5 GM Premix 4.5 gm In 200 / 200 100 ml @ 200 mls/hr IV.SIG Q6H [facility] Rx#:[id number] KCl 20 mEq Premix Inj 20 meq In 100 / 100 100 ml @ 50 mls/hr IV.SIG Q2H PRN Rx#:[id number] NS Inj 1,000 ML @ 999 mls/hr IV 1000 / 1000 .SIG .Q1H1M ONE Rx#:[id number] NS Inj 500 ML @ As Directed IV. 500 / 500 SIG BOLUS ONE Rx#:[id number] Depacon Inj 750 MG In NS Inj 215.0 / 215.0 215.0 / 215.0 100 ML @ 105 mls/hr IV.SIG Q8HR [facility] Rx#:[id number] Keppra 1000 mg/100 mL Premix 100 / 100 100 / 100 100 ML @ 400 mls/hr IV.SIG Q12H [facility] Rx#:[id number] Tube Feeding 567 / 567 527 / 527 Tube Irrigant 120 / 120 Other 160 / 160 Output: Urine Amount (Catheter) 1450 / 1450 600 / 600 Indwelling Urethral Catheter 1450 / 1450 600 / 600 Intracranial Drainage Right Temporoparietal Other: Date of Last Bowel Movement 07/01/18 07/02/18 # Bowel Movements 0 0 Weight On Admission 79.4 kg Result Diagrams: 07/03/18 03:55 07/03/18 03:55 Objective Remarks: HEENT/ Neuro: No sedation, orally intubated, Pupils 2 mm, reactive to light bilaterally. Localizes for 4 limbs. Does not open his eyes to stimulation. Neck: Supple. Orotracheal intubation. Chest/Pulm: Good air movement bilaterally while on SBT, no wheezing or crackles. Some clear watery secretions. CVS: S1-S2 Regular, no murmur, no JVD. GI/abdomen: Soft, nontender, nondistended, bowel sounds present, no guarding. Extremities: Warm bilaterally, no edema. Well perfused. Assessment and Plan - Assessment and Plan Plan: 67-year-old male with: Status epilepticus ICH/SDH Acute respiratory failure on mechanical ventilation Left humerus fracture History of dementia History of stroke Hypertension Suspected sepsis Plan: Neuro: Hold sedation. Keppra 1 g IV every 12 hourly. Valproate 500 mg IV every 8 hourly switched from p.o. dose at home. Follow valproate level. EEG did not reveal seizure activity. Neurology consult noted. Neurosurgery following for ICH, discussed with Dr. Jones - s/p ventriculostomy 06/24. ICPs normal. EVD challenged at 5 cm, drainage clear to light yellow Cardiovascular: Hold antihypertensives. Received fluid bolus for hypotension on 07/02. Pulmonary: Continue mechanical ventilation, vent bundle, bronchodilators as needed. Continue spontaneous breathing trials at 05/09. GI/liver: Tolerating tube feeds, follow prealbumin weekly. Renal/: Tube feedings for hydration, strict intake, monitor and replete electrolytes, follow BUN and creatinine. MSK: Orthopedics consult for left humerus fracture noted - nonoperative management. ID: Pancultures ordered on 07/03 and started on empiric antibiotic coverage with IV Zosyn in view of fevers and bandemia. Endocrine: SSI as needed for glycemic control if needed Heme: Follow CBC. Received K Centra to reverse Eliquis in the ER. Prophylaxis: Pepcid/SCDs. Palliative care following. Patient is DNR status at this time. Overall impression: Patient remains critically ill, requiring intubation and mechanical ventilation for treatment of the severe neurologic encephalopathy. Seizure activity appears to be controlled. Unable to wean from ventilator but will continue spontaneous trials daily. Replace electrolytes daily. Will need tracheostomy and PEG tube if aggressive care desired in view of concern regarding airway protection and swallowing. Critical care time 35 minutes aside from procedures.
--- NOTE | 2018-07-03 14:52 | P.DIET ---
Nutritional Evaluation Type of nutrition evaluation: follow-up Nutrition consult regarding: Tube Feeding Subjective Subjective Comments: NH resident. Objective - Diagnosis ICH, L humeral fx, status epilepticus - Objective % IBW: 88 (IBW = 202#) Body Weight Used for Calculations: Actual (80.7 kg) Energy Needs - Lower Range (kCal/kg): 25 Energy Needs - Upper Range (kCal/kg): 30 Lower Limit kCal/kg (kCals): 2,017 Upper Limit kCal/kg (kCals): 2,421 Lower Limit Protein Factor (Grams per Kg): 1.0 Upper Limit Protein Factor (Grams per Kg): 1.5 Lower Protein Needs (Protein): 81 Upper Protein Needs (Protein): 121 Dietitian Reviewed in Medical Record: Curent medications, Intake & Output, Labs , Medical history, Tube feeding Diet Order: NPO Assessment Assessment: Pt remains at high nutrition risk 2' to his need for TFing. Current order is for Jevity 1.5 @ 50 mls/hr. To meet needs with Jevity 1.5, recommend goal rate of 60 mls/hr to provide 2160 kcals, 92 gms protein and 1094 mls of free water. Labs, wts and clinical course reviewed. Fluctuating wts noted. Recommendations: Jevity 1.5 @ 60 mls/hr goal Dietitian to Monitor: Lab values, Intake & Output, Tube feeding tolerance, Weight change, Medical course
--- NOTE | 2018-07-03 15:09 | P.PNPAL ---
Reason for Visit Reason for visit: a. To assist with evaluation and management of symptoms including: pain, altered mental status b. To assist medical decision maker(s) with: better understanding of current medical conditions; weighing benefits/burdens of medical treatment options; making medical treatment decisions. Subjective Subjective/Interval History: Mr. Castillo is a 67[place] with a history of seizures, hypertension, dementia, schizophrenia/bipolar, atrial fibrillation and previous CVA who presented to [facility] ED on 06/22/18 after having recurrent seizures s/p two falls. CT head revealed left frontal intraparenchymal bleed with subdural hemorrhage. Patient was also noted to have a left humerus fracture on x-ray. Patient had been on Eliquis, therefore he received K Centra following arrival to the ED. Dr. Jones, neurosurgery, evaluated the patient and ventriculostomy was placed. Follow up visit for symptom management and clarification of medical treatment goals. Dual visit with [facility] [employer]. Patient remains intubated on mechanical vent; off sedation. Patient opens his eyes briefly to verbal stimuli; followed simple one-step commands. Tolerating spontaneous breathing trials, but unable to wean off ventilator due to significant encephalopathy. Neurology and neurosurgery are following. Clinical data: * WBC: 10.4, hemoglobin 10.2, hematocrit 30.4, platelets 89 * Sodium: 142, potassium 3.3, chloride 109, carbon dioxide 25.5, glucose 100, calcium 7.9 * BUN: 13, creatinine 0.46, GFR >89 * Total bilirubin: 0.3, AST 26, ALT 28, alkaline phosphatase 85 * Total protein: 5.1, albumin 1.7 * Sputum culture from 07/02/2018 with gram-negative rods * Blood culture from 07/02/2018 with no growth times 1 day * Urinalysis WNL * EEG on 07/02/18 showing moderate slowing of background consistent with encephalopathic process of various etiologies. Seizure activity appears to be well controlled. * ICP: 5-6 Given patient's severe encephalopathy, a tracheostomy and PEG tube will be necessary if medical treatment goals remain aggressive. Patient discussed with Dr. Pineda and the [facility] RN, [place]. Patient completed written advanced directives on 06/15/10. A living will states he would not want his life to be prolonged nor would he want life-sustaining treatment to be provided or continued if his agent believed the burdens of the treatment outweigh the expected benefits. He would want his agent to consider the relief of suffering, the expense involved in the quality as well as the possible extension of his life and making decisions concerning life-sustaining treatment. Family/Friend Interactions: Spoke with Lindy Rojo who is the patient's appointed guardian this morning. Update provided on patient's medical condition, briefly discussed the upcoming decision on whether or not to trach/PEG this patient. Tentative meeting scheduled with Palliative Care tomorrow morning 07/04/18 at 9am to further discuss medical treatment goals of care. Advance Directives Health Care Surrogate Name and Number: Lindy Rojo, appointed guardian Documented care wishes:: Patient completed written advanced directives on 06/15/10. A living will states he would not want his life to be prolonged nor would he want life-sustaining treatment to be provided or continued if his agent believed the burdens of the treatment outweigh the expected benefits. He would want his agent to consider the relief of suffering, the expense involved in the quality as well as the possible extension of his life and making decisions concerning life-sustaining treatment. Objective Vital Signs: Vital Signs 07/02/18 15:00 07/02/18 16:00 07/02/18 16:32 Temperature 100.6 F H Pulse Rate 67 61 Respiratory Rate 12 16 15 Blood Pressure 91/54 L 78/43 L Pulse Oximetry 97 97 99 07/02/18 17:00 07/02/18 18:00 07/02/18 18:45 Temperature Pulse Rate 62 59 L 74 Respiratory Rate 61 H 62 H 61 H Blood Pressure 85/52 L 80/46 L Pulse Oximetry 98 97 98 07/02/18 18:50 07/02/18 19:00 07/02/18 19:05 Temperature Pulse Rate 72 68 67 Respiratory Rate 14 14 14 Blood Pressure 99/55 L 96/52 L Pulse Oximetry 98 98 97 07/02/18 19:15 07/02/18 19:20 07/02/18 19:30 Temperature Pulse Rate 64 65 64 Respiratory Rate 12 12 14 Blood Pressure 98/57 L Pulse Oximetry 98 98 98 07/02/18 19:35 07/02/18 19:45 07/02/18 20:00 Temperature 98.9 F Pulse Rate 66 64 69 Respiratory Rate 14 10 L 10 L Blood Pressure 93/50 L Pulse Oximetry 97 97 98 07/02/18 20:04 07/02/18 20:15 07/02/18 20:30 Temperature Pulse Rate 66 72 61 Respiratory Rate 10 L 10 L 48 H Blood Pressure 97/56 L 97/53 L Pulse Oximetry 98 99 97 07/02/18 20:35 07/02/18 20:45 07/02/18 21:00 Temperature Pulse Rate 65 60 Respiratory Rate 14 14 14 Blood Pressure 87/53 L Pulse Oximetry 97 97 97 07/02/18 21:15 07/02/18 21:30 07/02/18 21:45 Temperature Pulse Rate 61 61 59 L Respiratory Rate 14 14 43 H Blood Pressure 91/52 L Pulse Oximetry 97 98 98 07/02/18 22:00 07/02/18 22:15 07/02/18 22:30 Temperature Pulse Rate 59 L 58 L 65 Respiratory Rate 14 14 14 Blood Pressure 102/55 L 115/57 L Pulse Oximetry 98 99 98 07/02/18 22:45 07/02/18 23:00 07/02/18 23:15 Temperature Pulse Rate 59 L 58 L 64 Respiratory Rate 14 14 14 Blood Pressure 95/56 L Pulse Oximetry 99 99 98 07/02/18 23:30 07/02/18 23:34 07/02/18 23:45 Temperature Pulse Rate 59 L 59 L Respiratory Rate 14 14 14 Blood Pressure 99/57 L Pulse Oximetry 97 98 98 07/03/18 00:00 07/03/18 00:15 07/03/18 00:30 Temperature 99.0 F Pulse Rate 60 60 59 L Respiratory Rate 14 14 16 Blood Pressure 103/55 L 105/56 L Pulse Oximetry 98 98 98 07/03/18 00:45 07/03/18 01:00 07/03/18 01:15 Temperature Pulse Rate 60 60 62 Respiratory Rate 16 16 17 Blood Pressure 112/61 Pulse Oximetry 98 98 98 07/03/18 01:30 07/03/18 01:45 07/03/18 02:00 Temperature Pulse Rate 64 66 71 Respiratory Rate 16 16 16 Blood Pressure 113/58 L 129/61 Pulse Oximetry 98 98 98 07/03/18 02:15 07/03/18 02:30 07/03/18 02:45 Temperature Pulse Rate 66 65 66 Respiratory Rate 16 16 16 Blood Pressure 108/60 Pulse Oximetry 97 96 96 07/03/18 03:00 07/03/18 03:15 07/03/18 03:30 Temperature Pulse Rate 66 65 72 Respiratory Rate 16 16 16 Blood Pressure 108/64 126/64 Pulse Oximetry 95 95 95 07/03/18 03:45 07/03/18 04:00 07/03/18 04:06 Temperature 98.9 F Pulse Rate 71 70 Respiratory Rate 16 16 15 Blood Pressure 114/57 L Pulse Oximetry 96 96 96 07/03/18 04:15 07/03/18 04:30 07/03/18 04:45 Temperature Pulse Rate 69 67 70 Respiratory Rate 16 16 14 Blood Pressure 117/72 Pulse Oximetry 97 98 98 07/03/18 05:00 07/03/18 05:15 07/03/18 05:30 Temperature Pulse Rate 67 67 64 Respiratory Rate 14 14 14 Blood Pressure 118/66 127/68 Pulse Oximetry 98 98 98 07/03/18 05:45 07/03/18 06:00 07/03/18 08:42 Temperature Pulse Rate 67 71 Respiratory Rate 14 14 16 Blood Pressure 126/69 Pulse Oximetry 98 98 99 07/03/18 12:20 Temperature Pulse Rate Respiratory Rate 14 Blood Pressure Pulse Oximetry 97 Intake & Output 07/02/18 07/03/18 07/03/18 18:59 06:59 18:59 Intake Total 3542.0 / 3542.0 3762.0 / 3762.0 300 / 300 Output Total 1505 / 1505 611 / 611 Balance 2037.0 / 2037.0 3151.0 / 3151.0 300 / 300 Weight 79.4 kg 98.4 kg Intake: IV 2815.0 / 2815.0 3115.0 / 3115.0 300 / 300 NS Inj 1,000 ML @ 125 mls/hr IV 2000 / 2000 1000 / 1000 100 / 100 .CONT .Q8H ESTELA Rx#:[id number] NS Inj 500 ML @ As Directed IV. 500 / 500 CONT BOLUS ESTELA Rx#:[id number] Zosyn 4.5 GM Premix 4.5 gm In 200 / 200 100 / 100 100 ml @ 200 mls/hr IV.SIG Q6H ESTELA Rx#:[id number] KCl 20 mEq Premix Inj 20 meq In 100 / 100 100 ml @ 50 mls/hr IV.SIG Q2H PRN Rx#:[id number] NS Inj 1,000 ML @ 999 mls/hr IV 1000 / 1000 .SIG .Q1H1M ONE Rx#:[id number] NS Inj 500 ML @ As Directed IV. 500 / 500 SIG BOLUS ONE Rx#:[id number] Depacon Inj 750 MG In NS Inj 215.0 / 215.0 215.0 / 215.0 100 ML @ 105 mls/hr IV.SIG Q8HR ESTELA Rx#:[id number] Keppra 1000 mg/100 mL Premix 100 / 100 100 / 100 100 / 100 100 ML @ 400 mls/hr IV.SIG Q12H ESTELA Rx#:[id number] Tube Feeding 567 / 567 527 / 527 Tube Irrigant 120 / 120 Other 160 / 160 Output: Urine Amount (Catheter) 1450 / 1450 600 / 600 Indwelling Urethral Catheter 1450 / 1450 600 / 600 Intracranial Drainage Right Temporoparietal Other: Date of Last Bowel Movement 07/01/18 07/02/18 # Bowel Movements 0 0 Weight On Admission 79.4 kg Physical Exam: CONSTITUTIONAL/GENERAL: This is an adequately nourished patient, in no apparent distress. TUBES/LINES/DRAINS: PIV, indwelling urethral catheter, OGT, oral airway, ETT, ventriculostomy SKIN: No jaundice, rashes, or lesions. Ecchymoses on upper extremities. No wounds seen anteriorly. Skin temperature appropriate. Not diaphoretic. HEAD: Atraumatic. Normocephalic. EYES: Pupils equal and round and reactive. Extraocular motions intact. No scleral icterus. No injection or drainage. Fundi not examined. ENT: Nose without bleeding or purulent drainage. Throat without visible erythema , exudates, masses, or lesions. NECK: Trachea midline. Supple, nontender. No palpable thyroid enlargement or nodularity. CARDIOVASCULAR: Regular rate and rhythm without murmurs, gallops, or rubs. No JVD. Peripheral pulses symmetric. RESPIRATORY/CHEST: Symmetric, unlabored respirations. Clear to auscultation. Breath sounds equal bilaterally. No wheezes, rales, or rhonchi. GASTROINTESTINAL: Abdomen soft, non-tender, nondistended. No hepato-splenomegaly , or palpable masses. No guarding. Bowel sounds present. GENITOURINARY: Without palpable bladder distension. Schmid catheter in place. MUSCULOSKELETAL: Extremities without clubbing, cyanosis, or edema. No mottling or clubbing. LYMPHATICS: No palpable cervical or supraclavicular adenopathy. NEUROLOGICAL: Does not open eyes to verbal stimuli. Grimaces to noxious stimuli. PSYCHIATRIC: No obvious anxiety/depression. No apparent hallucinations or other psychotic thought process. Diagnostic Tests Laboratory: Laboratory Results - last 72 hr 06/30/18 06/30/18 07/01/18 15:08 17:32 00:07 WBC RBC Hgb Hct MCV MCH MCHC RDW Plt Count MPV Prelim Diff (Auto) Neut % (Auto) Lymph % (Auto) [place] % (Auto) Eos % (Auto) Baso % (Auto) Neut # (Auto) Lymph # (Auto) [place] # (Auto) Eos # (Auto) Baso # (Auto) WBC Differential Seg Neuts % (Manual) Band Neuts % (Manual) Lymphocytes % (Manual) Monocytes % (Manual) Eosinophils % (Manual) Metamyelocytes % (Man) Myelocytes % (Man) Abs Neuts (Manual) Differential Comment Toxic Vacuolation Platelet Estimate Platelet Morphology RBC Morphology Sodium Potassium Chloride Carbon Dioxide Anion Gap BUN Creatinine Estimated GFR POC Glucose 186 H 99 105 Random Glucose Lactic Acid Calcium Total Bilirubin AST ALT Alkaline Phosphatase Troponin I Total Protein Albumin Urine Color Urine Clarity Urine pH Ur Specific [place] Urine Protein Urine Glucose (UA) Urine Ketones Urine Occult Blood Urine Nitrate Urine Bilirubin Urine Urobilinogen Ur Leukocyte Esterase Urine RBC Urine WBC Ur Squamous Epith Cells Urine Bacteria Urine Mucus Micro UA Comment Ur Microscopic Review Urine Culture Comments Valproic Acid 07/01/18 07/01/18 07/01/18 03:54 11:43 18:50 WBC RBC Hgb Hct MCV MCH MCHC RDW Plt Count MPV Prelim Diff (Auto) Neut % (Auto) Lymph % (Auto) [place] % (Auto) Eos % (Auto) Baso % (Auto) Neut # (Auto) Lymph # (Auto) [place] # (Auto) Eos # (Auto) Baso # (Auto) WBC Differential Seg Neuts % (Manual) Band Neuts % (Manual) Lymphocytes % (Manual) Monocytes % (Manual) Eosinophils % (Manual) Metamyelocytes % (Man) Myelocytes % (Man) Abs Neuts (Manual) Differential Comment Toxic Vacuolation Platelet Estimate Platelet Morphology RBC Morphology Sodium 143 Potassium 3.5 Chloride 111 H Carbon Dioxide 26.0 Anion Gap 6 BUN 18 Creatinine 0.52 L Estimated GFR Greater than 89 POC Glucose 100 114 H Random Glucose 113 H Lactic Acid Calcium 8.2 L Total Bilirubin AST ALT Alkaline Phosphatase Troponin I Total Protein Albumin Urine Color Urine Clarity Urine pH Ur Specific [place] Urine Protein Urine Glucose (UA) Urine Ketones Urine Occult Blood Urine Nitrate Urine Bilirubin Urine Urobilinogen Ur Leukocyte Esterase Urine RBC Urine WBC Ur Squamous Epith Cells Urine Bacteria Urine Mucus Micro UA Comment Ur Microscopic Review Urine Culture Comments Valproic Acid 07/01/18 07/01/18 07/02/18 21:12 21:12 00:32 WBC RBC Hgb Hct MCV MCH MCHC RDW Plt Count MPV Prelim Diff (Auto) Neut % (Auto) Lymph % (Auto) [place] % (Auto) Eos % (Auto) Baso % (Auto) Neut # (Auto) Lymph # (Auto) [place] # (Auto) Eos # (Auto) Baso # (Auto) WBC Differential Seg Neuts % (Manual) Band Neuts % (Manual) Lymphocytes % (Manual) Monocytes % (Manual) Eosinophils % (Manual) Metamyelocytes % (Man) Myelocytes % (Man) Abs Neuts (Manual) Differential Comment Toxic Vacuolation Platelet Estimate Platelet Morphology RBC Morphology Sodium Potassium 3.7 Chloride Carbon Dioxide Anion Gap BUN Creatinine Estimated GFR POC Glucose 110 Random Glucose Lactic Acid Calcium Total Bilirubin AST ALT Alkaline Phosphatase Troponin I Total Protein Albumin Urine Color Urine Clarity Urine pH Ur Specific [place] Urine Protein Urine Glucose (UA) Urine Ketones Urine Occult Blood Urine Nitrate Urine Bilirubin Urine Urobilinogen Ur Leukocyte Esterase Urine RBC Urine WBC Ur Squamous Epith Cells Urine Bacteria Urine Mucus Micro UA Comment Ur Microscopic Review Urine Culture Comments Valproic Acid Cancelled 51 07/02/18 07/02/18 07/02/18 03:21 13:29 18:11 WBC RBC Hgb Hct MCV MCH MCHC RDW Plt Count MPV Prelim Diff (Auto) Neut % (Auto) Lymph % (Auto) [place] % (Auto) Eos % (Auto) Baso % (Auto) Neut # (Auto) Lymph # (Auto) [place] # (Auto) Eos # (Auto) Baso # (Auto) WBC Differential Seg Neuts % (Manual) Band Neuts % (Manual) Lymphocytes % (Manual) Monocytes % (Manual) Eosinophils % (Manual) Metamyelocytes % (Man) Myelocytes % (Man) Abs Neuts (Manual) Differential Comment Toxic Vacuolation Platelet Estimate Platelet Morphology RBC Morphology Sodium 142 Potassium 3.5 Chloride 110 H Carbon Dioxide 26.6 Anion Gap 5 BUN 17 Creatinine 0.48 L Estimated GFR Greater than 89 POC Glucose 108 101 Random Glucose 103 Lactic Acid Calcium 8.1 L Total Bilirubin AST ALT Alkaline Phosphatase Troponin I Total Protein Albumin Urine Color Urine Clarity Urine pH Ur Specific [place] Urine Protein Urine Glucose (UA) Urine Ketones Urine Occult Blood Urine Nitrate Urine Bilirubin Urine Urobilinogen Ur Leukocyte Esterase Urine RBC Urine WBC Ur Squamous Epith Cells Urine Bacteria Urine Mucus Micro UA Comment Ur Microscopic Review Urine Culture Comments Valproic Acid 07/02/18 07/02/18 07/02/18 20:10 21:01 21:01 WBC 9.8 RBC 3.02 L Hgb 9.6 L Hct 27.7 L MCV 91.8 MCH 31.8 MCHC 34.6 RDW 12.7 Plt Count 88 L MPV 7.6 Prelim Diff (Auto) Slide review pending Neut % (Auto) 78.8 H Lymph % (Auto) 4.9 L [place] % (Auto) 15.7 H Eos % (Auto) 0.3 Baso % (Auto) 0.3 Neut # (Auto) 7.8 H Lymph # (Auto) 0.5 L [place] # (Auto) 1.5 H Eos # (Auto) 0.0 Baso # (Auto) 0.0 WBC Differential Manual diff final Seg Neuts % (Manual) 63 Band Neuts % (Manual) 23 H Lymphocytes % (Manual) 3 L Monocytes % (Manual) 9 H Eosinophils % (Manual) Metamyelocytes % (Man) 1 Myelocytes % (Man) 1 H Abs Neuts (Manual) 8.6 H Differential Comment . Toxic Vacuolation Platelet Estimate Low L Platelet Morphology Normal RBC Morphology Normal Sodium 140 Potassium 3.3 L Chloride 108 H Carbon Dioxide 25.0 Anion Gap 7 BUN 15 Creatinine 0.53 L Estimated GFR Greater than 89 POC Glucose Random Glucose 121 H Lactic Acid Calcium 7.8 L Total Bilirubin AST ALT Alkaline Phosphatase Troponin I Total Protein Albumin Urine Color Yellow Urine Clarity Hazy H Urine pH 5.0 Ur Specific [place] 1.023 Urine Protein Negative Urine Glucose (UA) Negative Urine Ketones Trace H Urine Occult Blood Negative Urine Nitrate Negative Urine Bilirubin Negative Urine Urobilinogen 4 or greater Ur Leukocyte Esterase Negative Urine RBC 4 H Urine WBC 4 Ur Squamous Epith Cells <1 Urine Bacteria Rare H Urine Mucus Moderate H Micro UA Comment Culture not ind Ur Microscopic Review Not Reportable Urine Culture Comments Culture not ind Valproic Acid 07/02/18 07/02/18 07/02/18 21:01 21:01 23:13 WBC RBC Hgb Hct MCV MCH MCHC RDW Plt Count MPV Prelim Diff (Auto) Neut % (Auto) Lymph % (Auto) [place] % (Auto) Eos % (Auto) Baso % (Auto) Neut # (Auto) Lymph # (Auto) [place] # (Auto) Eos # (Auto) Baso # (Auto) WBC Differential Seg Neuts % (Manual) Band Neuts % (Manual) Lymphocytes % (Manual) Monocytes % (Manual) Eosinophils % (Manual) Metamyelocytes % (Man) Myelocytes % (Man) Abs Neuts (Manual) Differential Comment Toxic Vacuolation Platelet Estimate Platelet Morphology RBC Morphology Sodium Potassium Chloride Carbon Dioxide Anion Gap BUN Creatinine Estimated GFR POC Glucose 121 H Random Glucose Lactic Acid 0.9 Calcium Total Bilirubin AST ALT Alkaline Phosphatase Troponin I Less than 0.02 L Total Protein Albumin Urine Color Urine Clarity Urine pH Ur Specific [place] Urine Protein Urine Glucose (UA) Urine Ketones Urine Occult Blood Urine Nitrate Urine Bilirubin Urine Urobilinogen Ur Leukocyte Esterase Urine RBC Urine WBC Ur Squamous Epith Cells Urine Bacteria Urine Mucus Micro UA Comment Ur Microscopic Review Urine Culture Comments Valproic Acid 07/03/18 07/03/18 03:55 03:55 WBC 10.4 RBC 3.22 L Hgb 10.2 L Hct 30.4 L MCV 94.1 MCH 31.7 MCHC 33.7 RDW 12.6 Plt Count 89 L MPV 7.4 Prelim Diff (Auto) Manual diff required Neut % (Auto) Lymph % (Auto) [place] % (Auto) Eos % (Auto) Baso % (Auto) Neut # (Auto) Lymph # (Auto) [place] # (Auto) Eos # (Auto) Baso # (Auto) WBC Differential Manual diff final Seg Neuts % (Manual) 35 Band Neuts % (Manual) 48 H Lymphocytes % (Manual) 4 L Monocytes % (Manual) 12 H Eosinophils % (Manual) 1 Metamyelocytes % (Man) Myelocytes % (Man) Abs Neuts (Manual) 8.6 H Differential Comment . Toxic Vacuolation Present H Platelet Estimate Low L Platelet Morphology Normal RBC Morphology Normal Sodium 142 Potassium 3.3 L Chloride 109 H Carbon Dioxide 25.5 Anion Gap 8 BUN 13 Creatinine 0.46 L Estimated GFR Greater than 89 POC Glucose Random Glucose 100 Lactic Acid Calcium 7.9 L Total Bilirubin 0.3 AST 26 ALT 28 Alkaline Phosphatase 85 Troponin I Total Protein 5.1 L D Albumin 1.7 L Urine Color Urine Clarity Urine pH Ur Specific [place] Urine Protein Urine Glucose (UA) Urine Ketones Urine Occult Blood Urine Nitrate Urine Bilirubin Urine Urobilinogen Ur Leukocyte Esterase Urine RBC Urine WBC Ur Squamous Epith Cells Urine Bacteria Urine Mucus Micro UA Comment Ur Microscopic Review Urine Culture Comments Valproic Acid Result Diagrams: 07/03/18 03:55 07/03/18 03:55 Microbiology: Microbiology 07/02/18 20:10 Gram Stain - Final Sputum - Endotracheal Sputum Culture - Preliminary gram negative rods 07/02/18 20:55 Aerobic Blood Culture - Preliminary Blood - Peripheral No growth in 1 day Anaerobic Blood Culture - Preliminary No growth in 1 day 07/02/18 21:01 Aerobic Blood Culture - Preliminary Blood - Peripheral No growth in 1 day Anaerobic Blood Culture - Preliminary No growth in 1 day Procedures: 06/24/2018: Endotracheal intubation 06/24/2018: NGT placement Assessment and Plan Pertinent Non-Medical Issues: Psychosocial: Per review of notes: Patient was born in [place], [place]. He moved to [place] in 2011. Both of his parents are . His father from complications of liver cirrhosis at an unknown age, and his mother of cancer when he was an . He was raised by his grandparents. He has no known siblings. Mr. castillo has been and 2 times. Patient reportedly had one daughter, Sharon. She approximately 2 years ago. 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 Patient has had multiple psychiatric hospitalizations. Spiritual: Baptized Pentecostal, however there is no current active zoroastrianism affiliation. Legal: Per [place] statutes, in the absence of written advanced directives healthcare proxy decision making falls to the patient's daughter-Sharon. Ethical issues impacting care: No known ethical issues impacting care at this time. Important Contacts: Lindy Rojo, guardian: [phone] Code Status: Alternative Code (Intubation only) Plan: * ALTERNATE CODE-intubation only * Patient completed written advanced directives on 06/15/10. His living will states he would not want his life to be prolonged nor would he want life- sustaining treatment to be provided or continued if his agent believed the burdens of the treatment outweighed the expected benefits. He would want his agent to consider the relief of suffering, the expense involved and the quality as well as the possible extension of his life in making decisions concerning life-sustaining treatment. * Lindy Rojo is the patient's appointed guardian. * Spoke with Lindy Rojo who is the patient's appointed guardian this morning. Update provided on patient's medical condition, briefly discussed the upcoming decision on whether or not to trach/PEG this patient. Tentative meeting scheduled with Palliative Care tomorrow morning 07/04/18 at 9am to further discuss medical treatment goals of care. * Patient discussed with Dr. Pineda and the [facility] nurse, [place]. * Symptom management-pain: Potential causes of pain include recent falls, left humerus fracture, invasive lines etc. PRN morphine 2-4 mg is available every 4 hours as needed for pain. No PRN morphine has been administered in the past 24 hours. Continue to monitor for non-verbal s/s of pain. * Symptom management-altered mental status: Multifactoral. Patient has a baseline history of dementia, schizophrenia/bipolar and previous CVA. Recent CT head on 06/24/2018 showed an acute intraparenchymal hemorrhage involving the right frontal lobe, right temporal lobe and acute subdural hemorrhage involving the right frontal lobe and interhemispheric fissure. There was no mass-effect. Multiple areas of encephalomalacia were stable. Given patient's severe encephalopathy, a tracheostomy and PEG tube will be necessary if medical treatment goals remain aggressive. * Palliative care will continue to follow this patient throughout his hospitalization to establish trust, assist with symptom management and clarification of medical treatment goals. Attestation Attestation: To help prompt me to consider important information that might be impacting today's encounter and assessment, information from prior notes written by myself or my colleagues may have been "brought forward" into today's note. My signature on this note, however, is an attestation that I personally performed the exam, history, and/or decision-making noted today, and, unless otherwise indicated, the interactions with patient, family, and staff as well as the review of records all occurred today. I also attest that the listed assessment and stated plan reflect my best clinical judgment today based on the combination of historical information, prior notes, and today's exam/ interactions. When time spent is documented, it refers only to time spent today by the signer, or if indicated, combined time spent today by collaborating physician/nurse practitioner.
--- NOTE | 2018-07-03 20:06 | P.PNNEU ---
Subjective Active Medications: Active Medications Acetaminophen (Tylenol) 650 mg PO Q6H PRN PRN Reason: PAIN 1-10 AND/OR FEVER >101F Last Admin: 07/02/18 13:46 Dose: 650 mg Albuterol (Duoneb Neb (Prn)) 1 ampul NEB Q4HR NEB PRN PRN Reason: SHORTNESS OF BREATH Amlodipine Besylate (Norvasc) 10 mg PO DAILY [facility] Last Admin: 07/03/18 08:07 Dose: Not Given Chlorhexidine Gluconate (Peridex 0.12% Oral Kit) 15 ml OROPHARYNG BID@0800, 2000 [facility] Last Admin: 07/03/18 19:46 Dose: 15 ml Famotidine (Pepcid) 20 mg NG/OG BID [facility] Last Admin: 07/03/18 08:07 Dose: 20 mg Hydralazine HCl (Apresoline) 50 mg PO TID [facility] Last Admin: 07/02/18 13:35 Dose: 50 mg Sodium Chloride (Ns Inj) 1,000 mls @ 125 mls/hr IV.CONT .Q8H [facility] Last Admin: 07/03/18 17:35 Dose: 125 mls/hr Propofol (Diprivan 1000 Mg/100 Ml Inj) 1,000 mg in 100 mls @ 2.585 mls/hr IV.CONT TITRATE PRN; Protocol PRN Reason: Per Protocol Last Titration: 06/30/18 07:00 Dose: Infused Levetiracetam (Keppra 1000 Mg/100 Ml Premix) 100 mls @ 400 mls/hr IV.SIG Q12H [facility] Last Admin: 07/03/18 19:46 Dose: 400 mls/hr Valproate Sodium 750 mg/ (Sodium Chloride) 107.5 mls @ 105 mls/hr IV.SIG Q8HR [facility] Last Infusion: 07/03/18 14:45 Dose: Infused Nicardipine HCl 25 mg/ Sodium (Chloride) 260 mls @ 0 mls/hr IV.CONT TITRATE PRN ; Protocol PRN Reason: BLOOD PRESSURE MANAGEMENT Last Infusion: 06/30/18 07:00 Dose: Infused Magnesium Sulfate 4 gm/ Sodium (Chloride) 100 mls @ 50 mls/hr IV.SIG UNSCH PRN PRN Reason: For Magnesium 0.9 - 1.1 mg/dL Magnesium Sulfate 2 gm/ Sodium (Chloride) 100 mls @ 50 mls/hr IV.SIG UNSCH PRN PRN Reason: For Magnesium 1.2 - 1.6 mg/dL Potassium Chloride (Kcl 40 Meq Premix Inj) 40 meq in 100 mls @ 25 mls/hr IV.SIG Q2H PRN PRN Reason: For Potassium 2.8 - 3.2 mEq/L Potassium Chloride (Kcl 20 Meq Premix Inj) 20 meq in 100 mls @ 50 mls/hr IV.SIG Q2H PRN PRN Reason: For Potassium 3.3 - 3.5 mEq/L Last Infusion: 07/03/18 17:35 Dose: Infused Potassium Chloride (Kcl 40 Meq Premix Inj) 40 meq in 100 mls @ 25 mls/hr IV.SIG UNSCH PRN PRN Reason: For Potassium 3.3 - 3.5 mEq/L Potassium Chloride (Kcl 20 Meq Premix Inj) 20 meq in 100 mls @ 50 mls/hr IV.SIG Q2H PRN PRN Reason: For Potassium 2.8 - 3.2 mEq/L Last Infusion: 06/30/18 20:55 Dose: Infused Potassium Phosphate 30 mmol/ (Sodium Chloride) 260 mls @ 42 mls/hr IV.SIG UNSCH PRN PRN Reason: SEE LABEL COMMENTS Sodium Phosphate 30 mmol/ (Sodium Chloride) 260 mls @ 42 mls/hr IV.SIG UNSCH PRN PRN Reason: For Phosphorus < 2.5 mg/dL Piperacillin/Tazobactam/Dextrose (Zosyn 4.5 Gm Premix) 4.5 gm in 100 mls @ 200 mls/hr IV.SIG Q6H [facility] Last Admin: 07/03/18 19:46 Dose: 200 mls/hr Sodium Chloride (Ns Inj) 500 mls @ 0 mls/hr IV.CONT BOLUS [facility] Last Infusion: 07/02/18 19:01 Dose: Infused Magnesium Oxide (Mag-Ox) 800 mg PO UNSCH PRN PRN Reason: For Magnesium 1.2 - 1.6 mg/dL Metoprolol Tartrate (Lopressor) 25 mg PO BID [facility] Last Admin: 07/03/18 08:07 Dose: Not Given Miscellaneous Medication () 1 each OROPHARYNG 0000,0400,1200,1600 [facility] Last Admin: 07/03/18 16:48 Dose: 1 each Morphine Sulfate (Morphine Inj) 4 mg IV.PUSH Q4H PRN PRN Reason: PAIN SCALE 6 TO 10 IF NOT RUI Last Admin: 07/02/18 11:04 Dose: 4 mg Morphine Sulfate (Morphine Inj) 2 mg IV.PUSH Q4H PRN PRN Reason: PAIN 1 TO 5 IF NOT RUI PO Last Admin: 06/26/18 22:30 Dose: 2 mg Potassium Bicarb/Potassium Chloride (K-Lyte Cl Eff) 50 meq PO UNSCH PRN PRN Reason: For Potassium 3.3 - 3.5 mEq/L Potassium Phosphate (K-Phos Original) 2,000 mg PO Q4H PRN PRN Reason: Phosphorus Less Than 2.5 mg/dL Potassium Phosphate (K-Phos Original) 2,000 mg PO UNSCH PRN PRN Reason: SEE LABEL COMMENTS Sodium Chloride (Ns Flush) 2 ml IV.FLUSH PRN PRN PRN Reason: FLUSH AFTER USING IV ACCESS Last Admin: 07/03/18 08:08 Dose: 2 ml Thiamine HCl (Vitamin B1) 100 mg PO DAILY [facility] Last Admin: 07/03/18 08:07 Dose: 100 mg Allergies/Adverse Reactions: Allergies Allergy/AdvReac Type Severity Reaction Status Date / Time strawberry Allergy Unknown Swelling Verified 06/24/18 08:08 Review of Systems unobtainable due to endotracheal tube, unobtainable due to mental status Physical Exam Vital signs: Vital Signs 07/02/18 20:04 07/02/18 20:15 07/02/18 20:30 Temperature Pulse Rate 66 72 61 Respiratory Rate 10 L 10 L 48 H Blood Pressure 97/56 L 97/53 L Pulse Oximetry 98 99 97 07/02/18 20:35 07/02/18 20:45 07/02/18 21:00 Temperature Pulse Rate 65 60 Respiratory Rate 14 14 14 Blood Pressure 87/53 L Pulse Oximetry 97 97 97 07/02/18 21:15 07/02/18 21:30 07/02/18 21:45 Temperature Pulse Rate 61 61 59 L Respiratory Rate 14 14 43 H Blood Pressure 91/52 L Pulse Oximetry 97 98 98 07/02/18 22:00 07/02/18 22:15 07/02/18 22:30 Temperature Pulse Rate 59 L 58 L 65 Respiratory Rate 14 14 14 Blood Pressure 102/55 L 115/57 L Pulse Oximetry 98 99 98 07/02/18 22:45 07/02/18 23:00 07/02/18 23:15 Temperature Pulse Rate 59 L 58 L 64 Respiratory Rate 14 14 14 Blood Pressure 95/56 L Pulse Oximetry 99 99 98 07/02/18 23:30 07/02/18 23:34 07/02/18 23:45 Temperature Pulse Rate 59 L 59 L Respiratory Rate 14 14 14 Blood Pressure 99/57 L Pulse Oximetry 97 98 98 07/03/18 00:00 07/03/18 00:15 07/03/18 00:30 Temperature 99.0 F Pulse Rate 60 60 59 L Respiratory Rate 14 14 16 Blood Pressure 103/55 L 105/56 L Pulse Oximetry 98 98 98 07/03/18 00:45 07/03/18 01:00 07/03/18 01:15 Temperature Pulse Rate 60 60 62 Respiratory Rate 16 16 17 Blood Pressure 112/61 Pulse Oximetry 98 98 98 07/03/18 01:30 07/03/18 01:45 07/03/18 02:00 Temperature Pulse Rate 64 66 71 Respiratory Rate 16 16 16 Blood Pressure 113/58 L 129/61 Pulse Oximetry 98 98 98 07/03/18 02:15 07/03/18 02:30 07/03/18 02:45 Temperature Pulse Rate 66 65 66 Respiratory Rate 16 16 16 Blood Pressure 108/60 Pulse Oximetry 97 96 96 07/03/18 03:00 07/03/18 03:15 07/03/18 03:30 Temperature Pulse Rate 66 65 72 Respiratory Rate 16 16 16 Blood Pressure 108/64 126/64 Pulse Oximetry 95 95 95 07/03/18 03:45 07/03/18 04:00 07/03/18 04:06 Temperature 98.9 F Pulse Rate 71 70 Respiratory Rate 16 16 15 Blood Pressure 114/57 L Pulse Oximetry 96 96 96 07/03/18 04:15 07/03/18 04:30 07/03/18 04:45 Temperature Pulse Rate 69 67 70 Respiratory Rate 16 16 14 Blood Pressure 117/72 Pulse Oximetry 97 98 98 07/03/18 05:00 07/03/18 05:15 07/03/18 05:30 Temperature Pulse Rate 67 67 64 Respiratory Rate 14 14 14 Blood Pressure 118/66 127/68 Pulse Oximetry 98 98 98 07/03/18 05:45 07/03/18 06:00 07/03/18 06:30 Temperature Pulse Rate 67 71 68 Respiratory Rate 14 14 45 H Blood Pressure 126/69 135/61 Pulse Oximetry 98 98 98 07/03/18 07:00 07/03/18 07:30 07/03/18 08:00 Temperature 99.6 F Pulse Rate 75 69 67 Respiratory Rate 40 H 41 H 43 H Blood Pressure 137/81 122/67 121/66 Pulse Oximetry 97 96 97 07/03/18 08:30 07/03/18 08:42 07/03/18 09:00 Temperature Pulse Rate 73 71 Respiratory Rate 33 H 16 40 H Blood Pressure 131/69 126/67 Pulse Oximetry 98 99 98 07/03/18 09:30 07/03/18 10:00 07/03/18 10:30 Temperature Pulse Rate 70 73 69 Respiratory Rate 45 H 15 14 Blood Pressure 126/66 131/93 H 127/72 Pulse Oximetry 97 98 97 07/03/18 11:00 07/03/18 11:30 07/03/18 12:00 Temperature 98.4 F Pulse Rate 72 69 70 Respiratory Rate 16 12 17 Blood Pressure 121/60 117/60 116/66 Pulse Oximetry 97 97 97 07/03/18 12:20 07/03/18 12:30 07/03/18 13:00 Temperature Pulse Rate 73 75 Respiratory Rate 14 15 17 Blood Pressure 118/70 119/69 Pulse Oximetry 97 97 98 07/03/18 13:30 07/03/18 14:00 07/03/18 14:30 Temperature Pulse Rate 75 80 80 Respiratory Rate 17 17 17 Blood Pressure 116/63 142/74 H 129/68 Pulse Oximetry 97 97 98 07/03/18 15:00 07/03/18 15:30 07/03/18 16:00 Temperature 99.4 F Pulse Rate 75 77 71 Respiratory Rate 20 17 18 Blood Pressure 124/65 132/67 123/65 Pulse Oximetry 97 97 97 07/03/18 16:23 07/03/18 16:30 07/03/18 17:00 Temperature Pulse Rate 80 68 Respiratory Rate 14 18 16 Blood Pressure 122/81 124/67 Pulse Oximetry 100 95 98 07/03/18 17:30 07/03/18 18:00 Temperature Pulse Rate 70 70 Respiratory Rate 15 15 Blood Pressure 130/70 134/71 Pulse Oximetry 98 97 Intake & Output 07/03/18 07/03/18 07/04/18 06:59 18:59 06:59 Intake Total 3762.0 / 3762.0 2445.5 / 2445.5 Output Total 611 / 611 1850 / 1850 Balance 3151.0 / 3151.0 595.5 / 595.5 Weight 98.4 kg Intake: IV 3115.0 / 3115.0 1607.5 / 1607.5 NS Inj 1,000 ML @ 125 mls/hr IV 1000 / 1000 1100 / 1100 .CONT .Q8H [facility] Rx#:[id number] NS Inj 500 ML @ As Directed IV. 500 / 500 CONT BOLUS [facility] Rx#:[id number] Zosyn 4.5 GM Premix 4.5 gm In 200 / 200 200 / 200 100 ml @ 200 mls/hr IV.SIG Q6H [facility] Rx#:[id number] KCl 20 mEq Premix Inj 20 meq In 100 / 100 100 / 100 100 ml @ 50 mls/hr IV.SIG Q2H [facility] Rx#:[id number] NS Inj 1,000 ML @ 999 mls/hr IV 1000 / 1000 .SIG .Q1H1M [facility] Rx#:[id number] Depacon Inj 750 MG In NS Inj 215.0 / 215.0 107.5 / 107.5 100 ML @ 105 mls/hr IV.SIG Q8HR [facility] Rx#:[id number] Keppra 1000 mg/100 mL Premix 100 / 100 100 / 100 100 ML @ 400 mls/hr IV.SIG Q12H [facility] Rx#:[id number] Tube Feeding 527 / 527 638 / 638 Tube Irrigant 120 / 120 Water Bolus Amount 200 / 200 Output: Urine 1850 / 1850 Urine Amount (Catheter) 600 / 600 Indwelling Urethral Catheter 600 / 600 Intracranial Drainage Right Temporoparietal Other: Date of Last Bowel Movement 07/02/18 07/03/18 # Bowel Movements 0 1 Narrative: GENERAL: in NAD, SKIN: Warm and dry. HEAD: Atraumatic. Normocephalic. EYES: Pupils equal and round. No scleral icterus. ENT: No nasal bleeding or discharge. NECK: Trachea midline. No JVD. CARDIOVASCULAR: Regular rate and rhythm. RESPIRATORY: Intubated. Alerts, opens eyes, no gaze deviation not following grimaces, ou appear equal and reactive, withdraws flexion with ue rt>left, roberto le to gravity - Urinary Catheter Management Indwelling Urethral Catheter Cath placed during this visit: yes Reason for continuing: Acute urinary retention Insertion date: 06/24/18 Insertion time: 09:50 Objective Laboratory Results - last 24 hr 07/02/18 07/02/18 07/02/18 20:10 21:01 21:01 WBC 9.8 RBC 3.02 L Hgb 9.6 L Hct 27.7 L MCV 91.8 MCH 31.8 MCHC 34.6 RDW 12.7 Plt Count 88 L MPV 7.6 Prelim Diff (Auto) Slide review pending Neut % (Auto) 78.8 H Lymph % (Auto) 4.9 L Karnes % (Auto) 15.7 H Eos % (Auto) 0.3 Baso % (Auto) 0.3 Neut # (Auto) 7.8 H Lymph # (Auto) 0.5 L Karnes # (Auto) 1.5 H Eos # (Auto) 0.0 Baso # (Auto) 0.0 WBC Differential Manual diff final Seg Neuts % (Manual) 63 Band Neuts % (Manual) 23 H Lymphocytes % (Manual) 3 L Monocytes % (Manual) 9 H Eosinophils % (Manual) Metamyelocytes % (Man) 1 Myelocytes % (Man) 1 H Abs Neuts (Manual) 8.6 H Differential Comment . Toxic Vacuolation Platelet Estimate Low L Platelet Morphology Normal RBC Morphology Normal Sodium 140 Potassium 3.3 L Chloride 108 H Carbon Dioxide 25.0 Anion Gap 7 BUN 15 Creatinine 0.53 L Estimated GFR Greater than 89 POC Glucose Random Glucose 121 H Lactic Acid Calcium 7.8 L Total Bilirubin AST ALT Alkaline Phosphatase Troponin I Total Protein Albumin Urine Color Yellow Urine Clarity Hazy H Urine pH 5.0 Ur Specific Index 1.023 Urine Protein Negative Urine Glucose (UA) Negative Urine Ketones Trace H Urine Occult Blood Negative Urine Nitrate Negative Urine Bilirubin Negative Urine Urobilinogen 4 or greater Ur Leukocyte Esterase Negative Urine RBC 4 H Urine WBC 4 Ur Squamous Epith Cells <1 Urine Bacteria Rare H Urine Mucus Moderate H Micro UA Comment Culture not ind Ur Microscopic Review Not Reportable Urine Culture Comments Culture not ind 07/02/18 07/02/18 07/02/18 21:01 21:01 23:13 WBC RBC Hgb Hct MCV MCH MCHC RDW Plt Count MPV Prelim Diff (Auto) Neut % (Auto) Lymph % (Auto) Karnes % (Auto) Eos % (Auto) Baso % (Auto) Neut # (Auto) Lymph # (Auto) Karnes # (Auto) Eos # (Auto) Baso # (Auto) WBC Differential Seg Neuts % (Manual) Band Neuts % (Manual) Lymphocytes % (Manual) Monocytes % (Manual) Eosinophils % (Manual) Metamyelocytes % (Man) Myelocytes % (Man) Abs Neuts (Manual) Differential Comment Toxic Vacuolation Platelet Estimate Platelet Morphology RBC Morphology Sodium Potassium Chloride Carbon Dioxide Anion Gap BUN Creatinine Estimated GFR POC Glucose 121 H Random Glucose Lactic Acid 0.9 Calcium Total Bilirubin AST ALT Alkaline Phosphatase Troponin I Less than 0.02 L Total Protein Albumin Urine Color Urine Clarity Urine pH Ur Specific Index Urine Protein Urine Glucose (UA) Urine Ketones Urine Occult Blood Urine Nitrate Urine Bilirubin Urine Urobilinogen Ur Leukocyte Esterase Urine RBC Urine WBC Ur Squamous Epith Cells Urine Bacteria Urine Mucus Micro UA Comment Ur Microscopic Review Urine Culture Comments 07/03/18 07/03/18 03:55 03:55 WBC 10.4 RBC 3.22 L Hgb 10.2 L Hct 30.4 L MCV 94.1 MCH 31.7 MCHC 33.7 RDW 12.6 Plt Count 89 L MPV 7.4 Prelim Diff (Auto) Manual diff required Neut % (Auto) Lymph % (Auto) Karnes % (Auto) Eos % (Auto) Baso % (Auto) Neut # (Auto) Lymph # (Auto) Karnes # (Auto) Eos # (Auto) Baso # (Auto) WBC Differential Manual diff final Seg Neuts % (Manual) 35 Band Neuts % (Manual) 48 H Lymphocytes % (Manual) 4 L Monocytes % (Manual) 12 H Eosinophils % (Manual) 1 Metamyelocytes % (Man) Myelocytes % (Man) Abs Neuts (Manual) 8.6 H Differential Comment . Toxic Vacuolation Present H Platelet Estimate Low L Platelet Morphology Normal RBC Morphology Normal Sodium 142 Potassium 3.3 L Chloride 109 H Carbon Dioxide 25.5 Anion Gap 8 BUN 13 Creatinine 0.46 L Estimated GFR Greater than 89 POC Glucose Random Glucose 100 Lactic Acid Calcium 7.9 L Total Bilirubin 0.3 AST 26 ALT 28 Alkaline Phosphatase 85 Troponin I Total Protein 5.1 L D Albumin 1.7 L Urine Color Urine Clarity Urine pH Ur Specific Index Urine Protein Urine Glucose (UA) Urine Ketones Urine Occult Blood Urine Nitrate Urine Bilirubin Urine Urobilinogen Ur Leukocyte Esterase Urine RBC Urine WBC Ur Squamous Epith Cells Urine Bacteria Urine Mucus Micro UA Comment Ur Microscopic Review Urine Culture Comments Microbiology 07/02/18 20:10 Gram Stain - Final Sputum - Endotracheal Sputum Culture - Preliminary gram negative rods 07/02/18 20:55 Aerobic Blood Culture - Preliminary Blood - Peripheral No growth in 1 day Anaerobic Blood Culture - Preliminary No growth in 1 day 07/02/18 21:01 Aerobic Blood Culture - Preliminary Blood - Peripheral No growth in 1 day Anaerobic Blood Culture - Preliminary No growth in 1 day Review/Management - Diagnosis (1) Encephalomalacia Code(s): G93.89 - Other specified disorders of brain Status: Acute Current Visit: Yes (2) Dementia Code(s): F03.90 - Unspecified dementia without behavioral disturbance Status: Acute Current Visit: Yes (3) Intractable seizure disorder Code(s): G40.919 - Epilepsy, unspecified, intractable, without status epilepticus Status: Acute Current Visit: Yes (4) ICH (intracerebral hemorrhage) Code(s): I61.9 - Nontraumatic intracerebral hemorrhage, unspecified Status: Acute Current Visit: Yes - Review/Management Plan: Intracranial hemorrhage. rt frontal hemorrhage, previous right posterior MCA encephalomalacia and left MCA encephalomalacia Seizures Probable underlying vascular dementia stimulus invoked tremors On Keppra, Depakote Recommendation Follow-up EEG-negative for sz Possible trach PEG if he can be extubated and if POA desires continued aggressive medical care neuro prognosis guarded with underlying dementia and previous strokes. higher likelihood of full care appreciate palliative care (4) ICH (intracerebral hemorrhage) Qualifiers: Intracerebral hemorrhage etiology: nontraumatic Cerebral hemorrhage location : multiple localized areas of cerebrum Laterality: right Qualified Code(s): I61.6 - Nontraumatic intracerebral hemorrhage, multiple localized
[2018-07-04] MEDS: Oral Hygiene Kit OROPHARYNG SCH ×4 (00:17→17:10)
[2018-07-04] MEDS: Sod Chloride 0.9% Inj 1,000 ML IV.CONT SCH ×4 (01:17→16:28)
[2018-07-04] MEDS: Piperacil/Tazo 4.5 GM Premix 4.5 GM/100 ML BAG IV.SIG SCH ×4 (02:38→20:50)
[2018-07-04] MEDS: Potassium Chlor 20 mEq Premix 20 MEQ/100 ML PIGGYBACK IV.SIG PRN ×3 (02:39→22:12)
--- NOTE | 2018-07-04 05:06 | CT ---
EXAM DATE: 07/04/2018 4:57 AM EST AGE/SEX: 67 years / Male INDICATIONS: Intracerebral hemorrhage, follow up. CLINICAL DATA: This is the patient's subsequent encounter. Patient reports that signs and symptoms h ave been present for 1 week and indicates a pain score of Nonresponsive. MEDICAL/SURGICAL HISTORY: Non-responsive. Non-responsive. RADIATION DOSE: 75.00 CTDI (mGy) ;Tabletop exam ; Patient positioning [place] [facility] [place]. . TECHNIQUE: CT of the head without contrast. Using automated exposure control and adjustment of the mA and/or kV according to patient size, radiation dose was kept as low as reasonably achievable to ob tain optimal diagnostic quality images. DICOM format image data is available electronically for revi ew and comparison. FINDINGS: There has been prior right craniotomy with a right frontal ventricular catheter in place which enters through a nuno hole in the right frontal bone. The distal tip of the catheter is only barely within the right frontal horn of the lateral ventricle. There is mild generalized cerebral atrophy with ence phalomalacia in the right frontal, parietal, and temporal lobes with ex vacuo dilatation of the right lateral ventricle. The right frontal lobe acute blood products have significantly decreased. Minimal amount of blood products layer in the right occipital horn. There is stable encephalomalacia in the left temporal lobe. Examination quality is mildly degraded by motion artifact. There is no midline sh ift or herniation. CONCLUSION: 1. Interval decrease in the acute blood products in the right frontal lobe and decrease in the intra ventricular blood products. 2. The right frontal ventricular catheter tip is only barely within the right frontal horn. 3. Other stable brain changes include generalized atrophy with bilateral areas of encephalomalacia. . Electronically signed by: Jose Ball MD 07/04/2018 5:04 AM EST
[2018-07-04 05:07] LABS: Baso % (Auto) 0.2 % (0.0-2.0); Eos # (Auto) 0.1 th/mm3 (0.0-0.4); Eos % (Auto) 0.9 % (0.0-4.0); Hematocrit 28.7 % (39.0-51.0); Hemoglobin 10.1 gm/dL (13.0-17.0); Lymph # (Auto) 0.8 th/mm3 (1.0-4.8); Mean Corpuscular HGB Conc 35.4 % (32.0-36.0); Mean Corpuscular Hemoglobin 32.4 pg (27.0-34.0); Mean Corpuscular Volume 91.6 fL (80.0-100.0); Mean Platelet Volume 7.4 fL (7.0-11.0); Mono # (Auto) 1.5 th/mm3 (0.0-0.9); Mono % (Auto) 14.4 % (0.0-8.0); Neut % (Auto) 76.5 % (16.0-70.0); Platelet Count 109 th/mm3 (150-450); Red Blood Count 3.13 mil/mm3 (4.50-5.90); Red Cell Distribution Width 12.5 % (11.6-17.2); White Blood Count 10.5 th/mm3 (4.0-11.0)
[2018-07-04 05:30] LABS: Albumin 1.8 g/dL (3.4-5.0); Anion Gap 4 meq/L (5-15); Aspartate Aminotransferase 24 U/L (15-37); Blood Urea Nitrogen 9 mg/dL (7-18); Calcium 8.2 mg/dL (8.5-10.1); Carbon Dioxide 28.8 meq/L (21.0-32.0); Chloride 107 meq/L (98-107); Glomerular Filtration Rate Greater Than 89 mL/min (>89); Glucose,Random 107 mg/dL (74-106); Potassium 3.1 meq/L (3.5-5.1); Sodium 140 meq/L (136-145)
[2018-07-04 05:36] LABS: Alanine Aminotransferase 25 U/L (12-78); Alkaline Phosphatase 95 U/L (45-117); Total Protein 5.1 g/dL (6.4-8.2)
[2018-07-04] MEDS: Valproate Inj 750 MG in Sodium Chlor 0.9% Inj 100 ML IV.SIG SCH ×3 (05:46→23:12)
[2018-07-04] MEDS: Morphine Sulfate Inj 2 MG/ML Vial IV.PUSH PRN ×2 (07:07→20:50)
[2018-07-04] MEDS ORDERED: Adenosine Inj 6 MG/2 ML Syringe IV.PUSH ONE (07:13)
[2018-07-04] MEDS ORDERED: Adenosine Inj 6 MG/2 ML Syringe IV.PUSH STA (07:38)
[2018-07-04] MEDS ORDERED: Chlorhexidine Gluconate 2% 1 Pack (2 Cloths) TOPICAL SCH (07:45)
[2018-07-04] MEDS: Acetaminophen 325 MG Tablet PO PRN (07:55)
[2018-07-04] MEDS: Chlorhexidine 0.12% Oral Kit 15 ML UDC OROPHARYNG SCH ×2 (08:00→20:52)
[2018-07-04] MEDS ORDERED: Vancomycin Inj 1,000 MG in Sodium Chlor 0.9% Inj 250 ML IV.SIG SCH (08:00)
[2018-07-04] MEDS ORDERED: ceFAZolin 2 GM Premix Inj 2 GM/50 ML PIGGYBACK IV.SIG SCH (08:00)
--- NOTE | 2018-07-04 08:26 | P.PNNEU ---
Subjective Subjective Comments: had tachy this am, got morphine. no sz Active Medications: Active Medications Acetaminophen (Tylenol) 650 mg PO Q6H PRN PRN Reason: PAIN 1-10 AND/OR FEVER >101F Last Admin: 07/04/18 07:55 Dose: 650 mg Albuterol (Duoneb Neb (Prn)) 1 ampul NEB Q4HR NEB PRN PRN Reason: SHORTNESS OF BREATH Amlodipine Besylate (Norvasc) 10 mg PO DAILY [facility] Last Admin: 07/03/18 08:07 Dose: Not Given Chlorhexidine Gluconate (Peridex 0.12% Oral Kit) 15 ml OROPHARYNG BID@0800, 2000 [facility] Last Admin: 07/03/18 19:46 Dose: 15 ml Chlorhexidine Gluconate (Chlorhexidine 2% Cloth) 3 pack TOPICAL [employer]ING [employer] [facility] Stop: 07/08/18 07:44 Famotidine (Pepcid) 20 mg NG/OG BID [facility] Last Admin: 07/03/18 21:22 Dose: 20 mg Hydralazine HCl (Apresoline) 50 mg PO TID [facility] Last Admin: 07/02/18 13:35 Dose: 50 mg Sodium Chloride (Ns Inj) 1,000 mls @ 125 mls/hr IV.CONT .Q8H [facility] Last Admin: 07/04/18 01:17 Dose: 125 mls/hr Propofol (Diprivan 1000 Mg/100 Ml Inj) 1,000 mg in 100 mls @ 2.585 mls/hr IV.CONT TITRATE PRN; Protocol PRN Reason: Per Protocol Last Titration: 06/30/18 07:00 Dose: Infused Levetiracetam (Keppra 1000 Mg/100 Ml Premix) 100 mls @ 400 mls/hr IV.SIG Q12H [facility] Last Infusion: 07/03/18 20:05 Dose: Infused Valproate Sodium 750 mg/ (Sodium Chloride) 107.5 mls @ 105 mls/hr IV.SIG Q8HR [facility] Last Admin: 07/04/18 05:46 Dose: 105 mls/hr Nicardipine HCl 25 mg/ Sodium (Chloride) 260 mls @ 0 mls/hr IV.CONT TITRATE PRN ; Protocol PRN Reason: BLOOD PRESSURE MANAGEMENT Last Infusion: 06/30/18 07:00 Dose: Infused Magnesium Sulfate 4 gm/ Sodium (Chloride) 100 mls @ 50 mls/hr IV.SIG UNSCH PRN PRN Reason: For Magnesium 0.9 - 1.1 mg/dL Magnesium Sulfate 2 gm/ Sodium (Chloride) 100 mls @ 50 mls/hr IV.SIG UNSCH PRN PRN Reason: For Magnesium 1.2 - 1.6 mg/dL Potassium Chloride (Kcl 40 Meq Premix Inj) 40 meq in 100 mls @ 25 mls/hr IV.SIG Q2H PRN PRN Reason: For Potassium 2.8 - 3.2 mEq/L Potassium Chloride (Kcl 20 Meq Premix Inj) 20 meq in 100 mls @ 50 mls/hr IV.SIG Q2H PRN PRN Reason: For Potassium 3.3 - 3.5 mEq/L Last Infusion: 07/03/18 17:35 Dose: Infused Potassium Chloride (Kcl 40 Meq Premix Inj) 40 meq in 100 mls @ 25 mls/hr IV.SIG UNSCH PRN PRN Reason: For Potassium 3.3 - 3.5 mEq/L Potassium Chloride (Kcl 20 Meq Premix Inj) 20 meq in 100 mls @ 50 mls/hr IV.SIG Q2H PRN PRN Reason: For Potassium 2.8 - 3.2 mEq/L Last Admin: 07/04/18 05:49 Dose: 50 mls/hr Potassium Phosphate 30 mmol/ (Sodium Chloride) 260 mls @ 42 mls/hr IV.SIG UNSCH PRN PRN Reason: SEE LABEL COMMENTS Sodium Phosphate 30 mmol/ (Sodium Chloride) 260 mls @ 42 mls/hr IV.SIG UNSCH PRN PRN Reason: For Phosphorus < 2.5 mg/dL Piperacillin/Tazobactam/Dextrose (Zosyn 4.5 Gm Premix) 4.5 gm in 100 mls @ 200 mls/hr IV.SIG Q6H [facility] Last Infusion: 07/04/18 03:08 Dose: Infused Sodium Chloride (Ns Inj) 500 mls @ 0 mls/hr IV.CONT BOLUS [facility] Last Infusion: 07/02/18 19:01 Dose: Infused Vancomycin HCl 1,000 mg/ (Sodium Chloride) 250 mls @ 250 mls/hr IV.SIG [employer] [facility] Stop: 07/08/18 07:59 Cefazolin Sodium/Dextrose (Ancef 2 Gm Premix Inj) 2 gm in 50 mls @ 100 mls/hr IV.SIG [employer] [facility] Stop: 07/08/18 07:59 Sodium Chloride (Ns Inj) 1,000 mls @ 30 mls/hr IV.CONT .Q24H [facility] Magnesium Oxide (Mag-Ox) 800 mg PO UNSCH PRN PRN Reason: For Magnesium 1.2 - 1.6 mg/dL Metoprolol Tartrate (Lopressor) 25 mg PO BID [facility] Last Admin: 07/03/18 21:21 Dose: Not Given Miscellaneous Medication () 1 each OROPHARYNG 0000,0400,1200,1600 [facility] Last Admin: 07/04/18 04:02 Dose: 1 each Morphine Sulfate (Morphine Inj) 4 mg IV.PUSH Q4H PRN PRN Reason: PAIN SCALE 6 TO 10 IF NOT RUI Last Admin: 07/02/18 11:04 Dose: 4 mg Morphine Sulfate (Morphine Inj) 2 mg IV.PUSH Q4H PRN PRN Reason: PAIN 1 TO 5 IF NOT RUI PO Last Admin: 07/04/18 07:07 Dose: 2 mg Potassium Bicarb/Potassium Chloride (K-Lyte Cl Eff) 50 meq PO UNSCH PRN PRN Reason: For Potassium 3.3 - 3.5 mEq/L Potassium Phosphate (K-Phos Original) 2,000 mg PO Q4H PRN PRN Reason: Phosphorus Less Than 2.5 mg/dL Potassium Phosphate (K-Phos Original) 2,000 mg PO UNSCH PRN PRN Reason: SEE LABEL COMMENTS Povidone Iodine (Betadine 5% Antisepsis Kit) 1 applicatio EACH NARE [employer]ING [employer]IL FIL[employer]ER [facility] Stop: 07/08/18 07:44 Sodium Chloride (Ns Flush) 2 ml IV.FLUSH PRN PRN PRN Reason: FLUSH AFTER USING IV ACCESS Last Admin: 07/03/18 08:08 Dose: 2 ml Thiamine HCl (Vitamin B1) 100 mg PO DAILY [facility] Last Admin: 07/03/18 08:07 Dose: 100 mg Allergies/Adverse Reactions: Allergies Allergy/AdvReac Type Severity Reaction Status Date / Time strawberry Allergy Unknown Swelling Verified 06/24/18 08:08 Review of Systems unobtainable due to endotracheal tube, unobtainable due to mental status Physical Exam Vital signs: Vital Signs 07/03/18 08:30 07/03/18 08:42 07/03/18 09:00 Temperature Pulse Rate 73 71 Respiratory Rate 33 H 16 40 H Blood Pressure 131/69 126/67 Pulse Oximetry 98 99 98 07/03/18 09:30 07/03/18 10:00 07/03/18 10:30 Temperature Pulse Rate 70 73 69 Respiratory Rate 45 H 15 14 Blood Pressure 126/66 131/93 H 127/72 Pulse Oximetry 97 98 97 07/03/18 11:00 07/03/18 11:30 07/03/18 12:00 Temperature 98.4 F Pulse Rate 72 69 70 Respiratory Rate 16 12 17 Blood Pressure 121/60 117/60 116/66 Pulse Oximetry 97 97 97 07/03/18 12:20 07/03/18 12:30 07/03/18 13:00 Temperature Pulse Rate 73 75 Respiratory Rate 14 15 17 Blood Pressure 118/70 119/69 Pulse Oximetry 97 97 98 07/03/18 13:30 07/03/18 14:00 07/03/18 14:30 Temperature Pulse Rate 75 80 80 Respiratory Rate 17 17 17 Blood Pressure 116/63 142/74 H 129/68 Pulse Oximetry 97 97 98 07/03/18 15:00 07/03/18 15:30 07/03/18 16:00 Temperature 99.4 F Pulse Rate 75 77 71 Respiratory Rate 20 17 18 Blood Pressure 124/65 132/67 123/65 Pulse Oximetry 97 97 97 07/03/18 16:23 07/03/18 16:30 07/03/18 17:00 Temperature Pulse Rate 80 68 Respiratory Rate 14 18 16 Blood Pressure 122/81 124/67 Pulse Oximetry 100 95 98 07/03/18 17:30 07/03/18 18:00 07/03/18 18:30 Temperature Pulse Rate 70 70 67 Respiratory Rate 15 15 17 Blood Pressure 130/70 134/71 125/67 Pulse Oximetry 98 97 98 07/03/18 19:00 07/03/18 19:30 07/03/18 20:00 Temperature 99.4 F Pulse Rate 68 68 80 Respiratory Rate 19 15 17 Blood Pressure 129/80 129/73 142/73 H Pulse Oximetry 98 98 98 07/03/18 20:25 07/03/18 20:30 07/03/18 21:00 Temperature Pulse Rate 86 79 Respiratory Rate 15 15 16 Blood Pressure 138/67 118/95 H Pulse Oximetry 100 100 99 07/03/18 21:30 07/03/18 22:00 07/03/18 22:30 Temperature Pulse Rate 70 68 70 Respiratory Rate 16 15 14 Blood Pressure 129/66 147/70 H 126/64 Pulse Oximetry 98 98 98 07/03/18 23:00 07/03/18 23:30 07/04/18 00:00 Temperature 98.9 F Pulse Rate 66 64 66 Respiratory Rate 16 18 16 Blood Pressure 119/65 123/64 130/71 Pulse Oximetry 98 98 98 07/04/18 00:18 07/04/18 00:30 07/04/18 01:00 Temperature Pulse Rate 62 62 Respiratory Rate 15 16 16 Blood Pressure 119/65 128/61 Pulse Oximetry 98 98 98 07/04/18 01:30 07/04/18 02:00 07/04/18 02:30 Temperature Pulse Rate 63 61 61 Respiratory Rate 17 15 15 Blood Pressure 141/71 H 130/71 131/73 Pulse Oximetry 98 98 99 07/04/18 03:00 07/04/18 03:30 07/04/18 04:00 Temperature 98.7 F Pulse Rate 62 61 63 Respiratory Rate 15 16 14 Blood Pressure 124/70 126/68 131/68 Pulse Oximetry 99 98 98 07/04/18 04:30 07/04/18 05:00 07/04/18 05:01 Temperature Pulse Rate 69 66 65 Respiratory Rate 17 18 Blood Pressure 144/77 H 125/68 Pulse Oximetry 99 100 100 07/04/18 05:24 07/04/18 05:31 07/04/18 06:00 Temperature Pulse Rate 65 66 Respiratory Rate 16 18 18 Blood Pressure 122/68 Pulse Oximetry 98 97 98 07/04/18 06:01 Temperature Pulse Rate 64 Respiratory Rate 17 Blood Pressure 121/67 Pulse Oximetry 98 Intake & Output 07/03/18 07/04/18 07/04/18 18:59 06:59 18:59 Intake Total 2445.5 / 2445.5 2112.5 / 2112.5 Output Total 1850 / 1850 2049 / 2049 Balance 595.5 / 595.5 62.5 / 62.5 Weight 98.1 kg Intake: IV 1607.5 / 1607.5 1507.5 / 1507.5 NS Inj 1,000 ML @ 125 mls/hr IV 1100 / 1100 1000 / 1000 .CONT .Q8H [facility] Rx#:[id number] Zosyn 4.5 GM Premix 4.5 gm In 200 / 200 200 / 200 100 ml @ 200 mls/hr IV.SIG Q6H [facility] Rx#:[id number] KCl 20 mEq Premix Inj 20 meq In 100 / 100 100 / 100 100 ml @ 50 mls/hr IV.SIG Q2H PRN Rx#:[id number] Depacon Inj 750 MG In NS Inj 107.5 / 107.5 107.5 / 107.5 100 ML @ 105 mls/hr IV.SIG Q8HR [facility] Rx#:[id number] Keppra 1000 mg/100 mL Premix 100 / 100 100 / 100 100 ML @ 400 mls/hr IV.SIG Q12H [facility] Rx#:[id number] Tube Feeding 638 / 638 485 / 485 Water Bolus Amount 200 / 200 120 / 120 Output: Urine 1849 / 1850 Urine Amount (Catheter) 2049 Indwelling Urethral Catheter 2049 Other: Date of Last Bowel Movement 07/03/18 07/04/18 # Bowel Movements 1 1 Narrative: GENERAL: in NAD, SKIN: Warm and dry. HEAD: Atraumatic. Normocephalic. EYES: Pupils equal and round. No scleral icterus. ENT: No nasal bleeding or discharge. NECK: Trachea midline. No JVD. CARDIOVASCULAR: Regular rate and rhythm. RESPIRATORY: Intubated. drowsy, opens eyes to tactile, no gaze deviation not following, grimaces, ou appear equal and reactive, withdraws flexion with ue rt>left, mild rt ue tremors, roberto le to gravity - Constitutional no acute distress - Routine HEENT Exam Head: Present: normocephalic - Urinary Catheter Management Indwelling Urethral Catheter Cath placed during this visit: yes Reason for continuing: Acute urinary retention Insertion date: 06/24/18 Insertion time: 09:50 Objective Laboratory Results - last 24 hr 07/03/18 07/04/18 07/04/18 23:57 03:49 03:49 WBC 10.5 RBC 3.13 L Hgb 10.1 L Hct 28.7 L MCV 91.6 MCH 32.4 MCHC 35.4 RDW 12.5 Plt Count 109 L MPV 7.4 Neut % (Auto) 76.5 H Lymph % (Auto) 8.0 L Otero % (Auto) 14.4 H Eos % (Auto) 0.9 Baso % (Auto) 0.2 Neut # (Auto) 8.0 H Lymph # (Auto) 0.8 L Otero # (Auto) 1.5 H Eos # (Auto) 0.1 Baso # (Auto) 0.0 WBC Differential . Differential Comment Auto diff final Sodium 140 Potassium 3.2 L 3.1 L Chloride 107 Carbon Dioxide 28.8 Anion Gap 4 L BUN 9 Creatinine 0.58 L Estimated GFR Greater than 89 Random Glucose 107 H Calcium 8.2 L Total Bilirubin 0.3 AST 24 ALT 25 Alkaline Phosphatase 95 Total Protein 5.1 L Albumin 1.8 L Microbiology 07/02/18 20:10 Gram Stain - Final Sputum - Endotracheal Sputum Culture - Preliminary gram negative rods 07/02/18 20:55 Aerobic Blood Culture - Preliminary Blood - Peripheral No growth in 1 day Anaerobic Blood Culture - Preliminary No growth in 1 day 07/02/18 21:01 Aerobic Blood Culture - Preliminary Blood - Peripheral No growth in 1 day Anaerobic Blood Culture - Preliminary No growth in 1 day Review/Management - Diagnosis (1) Encephalomalacia Code(s): G93.89 - Other specified disorders of brain Status: Acute Current Visit: Yes (2) Dementia Code(s): F03.90 - Unspecified dementia without behavioral disturbance Status: Acute Current Visit: Yes (3) Intractable seizure disorder Code(s): G40.919 - Epilepsy, unspecified, intractable, without status epilepticus Status: Acute Current Visit: Yes (4) ICH (intracerebral hemorrhage) Code(s): I61.9 - Nontraumatic intracerebral hemorrhage, unspecified Status: Acute Current Visit: Yes - Review/Management Plan: Intracranial hemorrhage. 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 higher likelihood of full care appreciate palliative care (4) ICH (intracerebral hemorrhage) Qualifiers: Intracerebral hemorrhage etiology: nontraumatic Cerebral hemorrhage location : multiple localized areas of cerebrum Laterality: right Qualified Code(s): I61.6 - Nontraumatic intracerebral hemorrhage, multiple localized
[2018-07-04] MEDS: Metoprolol Tartrate 25 MG Tablet PO SCH ×2 (09:00→20:50)
[2018-07-04] MEDS: amLODIPine 10 MG Tablet PO SCH (09:00)
[2018-07-04] MEDS: Famotidine 20 MG Tablet NG/OG SCH ×2 (09:38→20:50)
[2018-07-04] MEDS: levETIRAcetam 1000mg/100mL Inj 100 ML IV.SIG SCH ×2 (09:38→21:26)
--- NOTE | 2018-07-04 13:19 | P.PNNS ---
Subjective Interval history: ventriculostomy drain clamped overnight, ICPs stable overnight per nursing report highest 7-8. f/u CT Brain completed this morning. Physical Exam Vital signs: Vital Signs 07/03/18 13:30 07/03/18 14:00 07/03/18 14:30 Temperature Pulse Rate 75 80 80 Respiratory Rate 17 17 17 Blood Pressure 116/63 142/74 H 129/68 Pulse Oximetry 97 97 98 07/03/18 15:00 07/03/18 15:30 07/03/18 16:00 Temperature 99.4 F Pulse Rate 75 77 71 Respiratory Rate 20 17 18 Blood Pressure 124/65 132/67 123/65 Pulse Oximetry 97 97 97 07/03/18 16:23 07/03/18 16:30 07/03/18 17:00 Temperature Pulse Rate 80 68 Respiratory Rate 14 18 16 Blood Pressure 122/81 124/67 Pulse Oximetry 100 95 98 07/03/18 17:30 07/03/18 18:00 07/03/18 18:30 Temperature Pulse Rate 70 70 67 Respiratory Rate 15 15 17 Blood Pressure 130/70 134/71 125/67 Pulse Oximetry 98 97 98 07/03/18 19:00 07/03/18 19:30 07/03/18 20:00 Temperature 99.4 F Pulse Rate 68 68 80 Respiratory Rate 19 15 17 Blood Pressure 129/80 129/73 142/73 H Pulse Oximetry 98 98 98 07/03/18 20:25 07/03/18 20:30 07/03/18 21:00 Temperature Pulse Rate 86 79 Respiratory Rate 15 15 16 Blood Pressure 138/67 118/95 H Pulse Oximetry 100 100 99 07/03/18 21:30 07/03/18 22:00 07/03/18 22:30 Temperature Pulse Rate 70 68 70 Respiratory Rate 16 15 14 Blood Pressure 129/66 147/70 H 126/64 Pulse Oximetry 98 98 98 07/03/18 23:00 07/03/18 23:30 07/04/18 00:00 Temperature 98.9 F Pulse Rate 66 64 66 Respiratory Rate 16 18 16 Blood Pressure 119/65 123/64 130/71 Pulse Oximetry 98 98 98 07/04/18 00:18 07/04/18 00:30 07/04/18 01:00 Temperature Pulse Rate 62 62 Respiratory Rate 15 16 16 Blood Pressure 119/65 128/61 Pulse Oximetry 98 98 98 07/04/18 01:30 07/04/18 02:00 07/04/18 02:30 Temperature Pulse Rate 63 61 61 Respiratory Rate 17 15 15 Blood Pressure 141/71 H 130/71 131/73 Pulse Oximetry 98 98 99 07/04/18 03:00 07/04/18 03:30 07/04/18 04:00 Temperature 98.7 F Pulse Rate 62 61 63 Respiratory Rate 15 16 14 Blood Pressure 124/70 126/68 131/68 Pulse Oximetry 99 98 98 07/04/18 04:30 07/04/18 05:00 07/04/18 05:01 Temperature Pulse Rate 69 66 65 Respiratory Rate 17 18 Blood Pressure 144/77 H 125/68 Pulse Oximetry 99 100 100 07/04/18 05:24 07/04/18 05:31 07/04/18 06:00 Temperature Pulse Rate 65 66 Respiratory Rate 16 18 18 Blood Pressure 122/68 Pulse Oximetry 98 97 98 07/04/18 06:01 07/04/18 08:50 07/04/18 10:55 Temperature Pulse Rate 64 61 Respiratory Rate 17 15 104 H Blood Pressure 121/67 87/54 L Pulse Oximetry 98 96 96 07/04/18 11:00 07/04/18 11:05 07/04/18 11:10 Temperature Pulse Rate 63 62 61 Respiratory Rate 107 H 85 H 106 H Blood Pressure 86/54 L 87/53 L 90/53 L Pulse Oximetry 96 96 96 07/04/18 11:15 07/04/18 11:20 07/04/18 11:25 Temperature Pulse Rate 66 63 69 Respiratory Rate 103 H 113 H 105 H Blood Pressure 91/54 L 91/52 L 92/55 L Pulse Oximetry 96 96 97 07/04/18 11:30 07/04/18 11:35 07/04/18 11:40 Temperature Pulse Rate 60 64 60 Respiratory Rate 122 H 76 H 73 H Blood Pressure 89/54 L 92/50 L 83/52 L Pulse Oximetry 97 98 98 07/04/18 11:45 07/04/18 11:50 07/04/18 11:55 Temperature Pulse Rate 59 L 59 L 59 L Respiratory Rate 113 H 113 H 113 H Blood Pressure 91/56 L 88/54 L 94/51 L Pulse Oximetry 98 98 98 07/04/18 12:00 07/04/18 12:05 07/04/18 12:10 Temperature Pulse Rate 57 L 60 57 L Respiratory Rate 112 H 108 H 85 H Blood Pressure 87/53 L 86/51 L 82/53 L Pulse Oximetry 98 98 98 07/04/18 12:15 07/04/18 12:20 07/04/18 12:25 Temperature Pulse Rate 60 59 L 56 L Respiratory Rate 103 H 81 H 94 H Blood Pressure 88/51 L 85/53 L 85/51 L Pulse Oximetry 98 98 99 07/04/18 12:30 07/04/18 12:35 07/04/18 12:40 Temperature Pulse Rate 55 L 58 L 58 L Respiratory Rate 72 H 58 H 85 H Blood Pressure 84/53 L 84/52 L 86/50 L Pulse Oximetry 99 99 99 07/04/18 12:45 07/04/18 12:50 07/04/18 12:55 Temperature Pulse Rate 60 58 L 59 L Respiratory Rate 102 H 85 H 87 H Blood Pressure 94/53 L 91/52 L 90/50 L Pulse Oximetry 99 98 99 07/04/18 13:00 07/04/18 13:05 Temperature Pulse Rate 61 62 Respiratory Rate 81 H 89 H Blood Pressure 93/51 L 99/55 L Pulse Oximetry 99 99 Intake & Output 07/03/18 07/04/18 07/04/18 18:59 06:59 18:59 Intake Total 2445.5 / 2445.5 2112.5 / 2112.5 1407.5 / 1407.5 Output Total 1850 / 1850 205 / 2050 Balance 595.5 / 595.5 62.5 / 62.5 1407.5 / 1407.5 Weight 98.1 kg Intake: IV 1607.5 / 1607.5 1507.5 / 1507.5 1407.5 / 1407.5 NS Inj 1,000 ML @ 125 mls/hr IV 1100 / 1100 1000 / 1000 1000 / 1000 .CONT .Q8H [facility] Rx#:[id number] Zosyn 4.5 GM Premix 4.5 gm In 200 / 200 200 / 200 100 / 100 100 ml @ 200 mls/hr IV.SIG Q6H [facility] Rx#:[id number] KCl 20 mEq Premix Inj 20 meq In 100 / 100 100 / 100 100 / 100 100 ml @ 50 mls/hr IV.SIG Q2H [facility]N Rx#:[id number] Depacon Inj 750 MG In NS Inj 107.5 / 107.5 107.5 / 107.5 107.5 / 107.5 100 ML @ 105 mls/hr IV.SIG Q8HR [facility] Rx#:[id number] Keppra 1000 mg/100 mL Premix 100 / 100 100 / 100 100 / 100 100 ML @ 400 mls/hr IV.SIG Q12H [facility] Rx#:[id number] Tube Feeding 638 / 638 485 / 485 Water Bolus Amount 200 / 200 120 / 120 Output: Urine 1850 / 1850 Urine Amount (Catheter) 2049 Indwelling Urethral Catheter 2049 Other: Date of Last Bowel Movement 07/03/18 07/04/18 07/04/18 # Bowel Movements 1 1 Narrative: intubated grimaces but i did not see eye opening, not following commands ventriculostomy drain clamped, ICPs stable - Urinary Catheter Management Indwelling Urethral Catheter Cath placed during this visit: yes Reason for continuing: Acute urinary retention Insertion date: 06/24/18 Insertion time: 09:50 Assessment and Plan - Assessment (1) Intractable seizure disorder Code(s): G40.919 - Epilepsy, unspecified, intractable, without status epilepticus Status: Acute Plan: 67-year-old male with: Status epilepticus ICH/SDH Acute respiratory failure on mechanical ventilation Left humerus fracture History of dementia History of stroke Hypertension Plan: Neuro: Continue neuro checks, hold sedation. Chalenging ventriculostomy catheter , increase to 10 cm H2O. Continue Keppra 1 g IV every 12 hourly. Continue Valproate 500 mg IV every 8 hourly switched from p.o. dose at home. Follow valproate level. EEG did not reveal seizure activity. Neurology consult noted. ICPs remain normal. Cardiovascular: Fluid balance about right. Hold antihypertensives. Pulmonary: Continue mechanical ventilation, vent bundle, bronchodilators as needed. Continue spontaneous breathing trials at 10/. GI/liver: Tolerating tube feeds, follow prealbumin weekly. Renal/: Tube feedings for hydration, strict intake, monitor and replete electrolytes, follow BUN and creatinine. Orthopedics consult for left humerus fracture noted - nonoperative management. ID: No indication for antibiotics at this time. Watch for sepsis. Serial CBC Endocrine: SSI as needed for glycemic control if needed Heme: Follow CBC. Received K Centra to reverse Eliquis in the ER. Prophylaxis: Pepcid for GI prophylaxis Jd hose and SCDs. Palliative care following. The exam, history, and the medical decision-making described in the above note were completed with the assistance of the mid-level provider. I reviewed and agree with the findings presented. I attest that I had a [id number] encounter with the patient on the same day, and personally performed and documented my assessment and findings in the medical record. (2) ICH (intracerebral hemorrhage) Code(s): I61.9 - Nontraumatic intracerebral hemorrhage, unspecified Status: Acute Qualifiers: Intracerebral hemorrhage etiology: nontraumatic Cerebral hemorrhage location: multiple localized areas of cerebrum Laterality: right Qualified Code(s): I61.6 - Nontraumatic intracerebral hemorrhage, multiple localized (3) Encephalomalacia Code(s): G93.89 - Other specified disorders of brain Status: Acute (4) Dementia Code(s): F03.90 - Unspecified dementia without behavioral disturbance Status: Acute - Plan A: 67 y/o M with right frontal ICH and IVH. s/p Ventriculostomy drain. Follow up Head CT 07/04/18 06:00 CONCLUSION: 1. Interval decrease in the acute blood products in the right frontal lobe and decrease in the intraventricular blood products. 2. The right frontal ventricular catheter tip is only barely within the right frontal horn. 3. Other stable brain changes include generalized atrophy with bilateral areas of encephalomalacia. P: Continue to monitor neuro exam closely. Continue with current care Continue with ventriculostomy drain. Wean sedation and Vent as vitals allow and as tolerated. 06/[address] shows stable. EVD at 0 will raise to 5 tomorrow after Versed wears off. ICPs stable 06/29 Raise EVD to 5 above EAC today, start to challenge. Last shift 100cc out at 0 above, ICP 0-2 06/30 cont challenge ventriculostomy drain - raise to 10 cm H20, cont monitor ICPs. cont neuro checks and f/u exam. ok to start sq lovenox for dvt prophylaxis 07/02: raise EVD to 20 cm H20, cont ICP monitor, cont critical care management - vent weaning. may need trach 07/03: clamp EVD, cont ICP monitor, cont neuro checks, f/u CT Brain tomorrow morning 07/04: f/u CT Brain reviewed, clear per Dr. Jones to remove ventriculostomy drain. Ventriculostomy drain removed, using sterile technique single stitch placed using 3-0 silk. the patient tolerated the procedure well.
--- NOTE | 2018-07-04 15:06 | P.PNPAL ---
Reason for Visit Reason for visit: a. To assist with evaluation and management of symptoms including: pain, altered mental status b. To assist medical decision maker(s) with: better understanding of current medical conditions; weighing benefits/burdens of medical treatment options; making medical treatment decisions. Subjective Subjective/Interval History: Mr. Castillo is a 67-year-old [facility] resident with a history of seizures, hypertension, dementia, schizophrenia/bipolar, atrial fibrillation and previous CVA who presented to [facility] on 06/22/18 after having recurrent seizures s/p two falls. CT head revealed left frontal intraparenchymal bleed with subdural hemorrhage. Patient was also noted to have a left humerus fracture on x-ray. Patient had been on Eliquis, therefore he received K Centra following arrival to the ED. Dr. Jones, neurosurgery, evaluated the patient and ventriculostomy was placed. Follow up visit for symptom management and clarification of medical treatment goals. Patient remains intubated on mechanical vent; off sedation. Patient lethargic today, not opening his eyes or responding to stimuli. He had an episode this morning of supraventricular tachycardia suspicious for uncontrolled pain and he was treated with morphine, 2 mg IV with resolution of his symptoms. He is unable to quantify or qualify his pain due to clinical condition, intubation, altered mental status. Clinical data: * WBC: 10.5, hemoglobin 10.1, hematocrit 28.7, platelets 109 * Sodium: 140, potassium 3.1 chloride 107, carbon dioxide 28.8, glucose 107, calcium 8.2 * BUN: 9, creatinine 0.58, GFR >89 * Total bilirubin: 0.3, AST 24, ALT 25, alkaline phosphatase 95 * Total protein: 5.1, albumin 1.8 * Sputum culture from 07/02/2018 shows pseudomonas aeruginosa (pansensitive), MRSA (sensitivity pending) * Blood culture from 07/02/2018 with no growth times 2 days * Urinalysis WNL * EEG on 07/02/18 showing moderate slowing of background consistent with encephalopathic process of various etiologies. Seizure activity appears to be well controlled. * ICP: 5-6 Patient completed written advanced directives on 06/15/10. A living will states he would not want his life to be prolonged nor would he want life-sustaining treatment to be provided or continued if his agent believed the burdens of the treatment outweigh the expected benefits. He would want his agent to consider the relief of suffering, the expense involved in the quality as well as the possible extension of his life and making decisions concerning life-sustaining treatment. Family/Friend Interactions: Spoke with the guardian, Lindy Rojo, today regarding goals of care. She states that she has discussed this with the family and it is their opinion that since he has undergone tracheostomy and PEG tube placement in the past and recovered well enough to be ambulatory and independent in the facility that they would like to allow him the same opportunity again and proceed with trach and PEG. The sequelae of long-term immobility was discussed and the guardian stated she had discussed all of that with the family but it was their determination to go forward with aggressive treatment at this time to allow him a chance to recover, but would not keep him on life support indefinitely. . Advance Directives Health Care Surrogate Name and Number: Lindy Rojo, appointed guardian Documented care wishes:: Patient completed written advanced directives on 06/15/10. A living will states he would not want his life to be prolonged nor would he want life-sustaining treatment to be provided or continued if his agent believed the burdens of the treatment outweigh the expected benefits. He would want his agent to consider the relief of suffering, the expense involved in the quality as well as the possible extension of his life and making decisions concerning life-sustaining treatment. Objective Vital Signs: Vital Signs 07/03/18 15:00 07/03/18 15:30 07/03/18 16:00 Temperature 99.4 F Pulse Rate 75 77 71 Respiratory Rate 20 17 18 Blood Pressure 124/65 132/67 123/65 Pulse Oximetry 97 97 97 07/03/18 16:23 07/03/18 16:30 07/03/18 17:00 Temperature Pulse Rate 80 68 Respiratory Rate 14 18 16 Blood Pressure 122/81 124/67 Pulse Oximetry 100 95 98 07/03/18 17:30 07/03/18 18:00 07/03/18 18:30 Temperature Pulse Rate 70 70 67 Respiratory Rate 15 15 17 Blood Pressure 130/70 134/71 125/67 Pulse Oximetry 98 97 98 07/03/18 19:00 07/03/18 19:30 07/03/18 20:00 Temperature 99.4 F Pulse Rate 68 68 80 Respiratory Rate 19 15 17 Blood Pressure 129/80 129/73 142/73 H Pulse Oximetry 98 98 98 07/03/18 20:25 07/03/18 20:30 07/03/18 21:00 Temperature Pulse Rate 86 79 Respiratory Rate 15 15 16 Blood Pressure 138/67 118/95 H Pulse Oximetry 100 100 99 07/03/18 21:30 07/03/18 22:00 07/03/18 22:30 Temperature Pulse Rate 70 68 70 Respiratory Rate 16 15 14 Blood Pressure 129/66 147/70 H 126/64 Pulse Oximetry 98 98 98 07/03/18 23:00 07/03/18 23:30 07/04/18 00:00 Temperature 98.9 F Pulse Rate 66 64 66 Respiratory Rate 16 18 16 Blood Pressure 119/65 123/64 130/71 Pulse Oximetry 98 98 98 07/04/18 00:18 07/04/18 00:30 07/04/18 01:00 Temperature Pulse Rate 62 62 Respiratory Rate 15 16 16 Blood Pressure 119/65 128/61 Pulse Oximetry 98 98 98 07/04/18 01:30 07/04/18 02:00 07/04/18 02:30 Temperature Pulse Rate 63 61 61 Respiratory Rate 17 15 15 Blood Pressure 141/71 H 130/71 131/73 Pulse Oximetry 98 98 99 07/04/18 03:00 07/04/18 03:30 07/04/18 04:00 Temperature 98.7 F Pulse Rate 62 61 63 Respiratory Rate 15 16 14 Blood Pressure 124/70 126/68 131/68 Pulse Oximetry 99 98 98 07/04/18 04:30 07/04/18 05:00 07/04/18 05:01 Temperature Pulse Rate 69 66 65 Respiratory Rate 17 18 Blood Pressure 144/77 H 125/68 Pulse Oximetry 99 100 100 07/04/18 05:24 07/04/18 05:31 07/04/18 06:00 Temperature Pulse Rate 65 66 Respiratory Rate 16 18 18 Blood Pressure 122/68 Pulse Oximetry 98 97 98 07/04/18 06:01 07/04/18 08:50 07/04/18 10:55 Temperature Pulse Rate 64 61 Respiratory Rate 17 15 104 H Blood Pressure 121/67 87/54 L Pulse Oximetry 98 96 96 07/04/18 11:00 07/04/18 11:05 07/04/18 11:10 Temperature Pulse Rate 63 62 61 Respiratory Rate 107 H 85 H 106 H Blood Pressure 86/54 L 87/53 L 90/53 L Pulse Oximetry 96 96 96 07/04/18 11:15 07/04/18 11:20 07/04/18 11:25 Temperature Pulse Rate 66 63 69 Respiratory Rate 103 H 113 H 105 H Blood Pressure 91/54 L 91/52 L 92/55 L Pulse Oximetry 96 96 97 07/04/18 11:30 07/04/18 11:35 07/04/18 11:40 Temperature Pulse Rate 60 64 60 Respiratory Rate 122 H 76 H 73 H Blood Pressure 89/54 L 92/50 L 83/52 L Pulse Oximetry 97 98 98 07/04/18 11:45 07/04/18 11:50 07/04/18 11:55 Temperature Pulse Rate 59 L 59 L 59 L Respiratory Rate 113 H 113 H 113 H Blood Pressure 91/56 L 88/54 L 94/51 L Pulse Oximetry 98 98 98 07/04/18 12:00 07/04/18 12:05 07/04/18 12:10 Temperature Pulse Rate 57 L 60 57 L Respiratory Rate 112 H 108 H 85 H Blood Pressure 87/53 L 86/51 L 82/53 L Pulse Oximetry 98 98 98 07/04/18 12:15 07/04/18 12:20 07/04/18 12:25 Temperature Pulse Rate 60 59 L 56 L Respiratory Rate 103 H 81 H 94 H Blood Pressure 88/51 L 85/53 L 85/51 L Pulse Oximetry 98 98 99 07/04/18 12:30 07/04/18 12:35 07/04/18 12:40 Temperature Pulse Rate 55 L 58 L 58 L Respiratory Rate 72 H 58 H 85 H Blood Pressure 84/53 L 84/52 L 86/50 L Pulse Oximetry 99 99 99 07/04/18 12:45 07/04/18 12:50 07/04/18 12:55 Temperature Pulse Rate 60 58 L 59 L Respiratory Rate 102 H 85 H 87 H Blood Pressure 94/53 L 91/52 L 90/50 L Pulse Oximetry 99 98 99 07/04/18 13:00 07/04/18 13:05 Temperature Pulse Rate 61 62 Respiratory Rate 81 H 89 H Blood Pressure 93/51 L 99/55 L Pulse Oximetry 99 99 Intake & Output 07/03/18 07/04/18 07/04/18 18:59 06:59 18:59 Intake Total 2445.5 / 2445.5 2112.5 / 2112.5 1407.5 / 1407.5 Output Total 1849 Balance 595.5 / 595.5 62.5 / 62.5 1407.5 / 1407.5 Weight 216 lb 4.375 oz Intake: IV 1607.5 / 1607.5 1507.5 / 1507.5 1407.5 / 1407.5 NS Inj 1,000 ML @ 125 mls/hr IV 1100 / 1100 1000 / 1000 1000 / 1000 .CONT .Q8H ESTELA Rx#:[id number] Zosyn 4.5 GM Premix 4.5 gm In 200 / 200 200 / 200 100 / 100 100 ml @ 200 mls/hr IV.SIG Q6H ESTELA Rx#:[id number] KCl 20 mEq Premix Inj 20 meq In 100 / 100 100 / 100 100 / 100 100 ml @ 50 mls/hr IV.SIG Q2H PRN Rx#:[id number] Depacon Inj 750 MG In NS Inj 107.5 / 107.5 107.5 / 107.5 107.5 / 107.5 100 ML @ 105 mls/hr IV.SIG Q8HR ESTELA Rx#:[id number] Keppra 1000 mg/100 mL Premix 100 / 100 100 / 100 100 / 100 100 ML @ 400 mls/hr IV.SIG Q12H ESTELA Rx#:[id number] Tube Feeding 638 / 638 485 / 485 Water Bolus Amount 200 / 200 120 / 120 Output: Urine 1849 Urine Amount (Catheter) 2049 Indwelling Urethral Catheter 2049 Other: Date of Last Bowel Movement 07/03/18 07/04/18 07/04/18 # Bowel Movements 1 1 Physical Exam: CONSTITUTIONAL/GENERAL: This is an adequately nourished patient, in no apparent distress. TUBES/LINES/DRAINS: PIV, indwelling urethral catheter, OGT, oral airway, ETT, ventriculostomy SKIN: No jaundice, rashes, or lesions. Ecchymoses on upper extremities. No wounds seen anteriorly. Skin temperature appropriate. Not diaphoretic. HEAD: Atraumatic. Normocephalic. EYES: Pupils equal and round and reactive. Extraocular motions intact. No scleral icterus. No injection or drainage. Fundi not examined. ENT: Nose without bleeding or purulent drainage. Throat without visible erythema , exudates, masses, or lesions. NECK: Trachea midline. Supple, nontender. No palpable thyroid enlargement or nodularity. CARDIOVASCULAR: Regular rate and rhythm without murmurs, gallops, or rubs. No JVD. Peripheral pulses symmetric. RESPIRATORY/CHEST: Symmetric, unlabored respirations. Clear to auscultation. Breath sounds equal bilaterally. No wheezes, rales, or rhonchi. GASTROINTESTINAL: Abdomen soft, non-tender, nondistended. No hepato-splenomegaly , or palpable masses. No guarding. Bowel sounds present. GENITOURINARY: Without palpable bladder distension. Schmid catheter in place. MUSCULOSKELETAL: Extremities without clubbing, cyanosis, or edema. No mottling or clubbing. LYMPHATICS: No palpable cervical or supraclavicular adenopathy. NEUROLOGICAL: Does not open eyes to verbal stimuli. Grimaces to noxious stimuli. PSYCHIATRIC: No obvious anxiety/depression. No apparent hallucinations or other psychotic thought process. Diagnostic Tests Laboratory: Laboratory Results - last 72 hr 07/01/18 07/01/18 07/01/18 18:50 21:12 21:12 WBC RBC Hgb Hct MCV MCH MCHC RDW Plt Count MPV Prelim Diff (Auto) Neut % (Auto) Lymph % (Auto) [place] % (Auto) Eos % (Auto) Baso % (Auto) Neut # (Auto) Lymph # (Auto) [place] # (Auto) Eos # (Auto) Baso # (Auto) WBC Differential Seg Neuts % (Manual) Band Neuts % (Manual) Lymphocytes % (Manual) Monocytes % (Manual) Eosinophils % (Manual) Metamyelocytes % (Man) Myelocytes % (Man) Abs Neuts (Manual) Differential Comment Toxic Vacuolation Platelet Estimate Platelet Morphology RBC Morphology Sodium Potassium 3.7 Chloride Carbon Dioxide Anion Gap BUN Creatinine Estimated GFR POC Glucose 114 H Random Glucose Lactic Acid Calcium Total Bilirubin AST ALT Alkaline Phosphatase Troponin I Total Protein Albumin Urine Color Urine Clarity Urine pH Ur Specific [place] Urine Protein Urine Glucose (UA) Urine Ketones Urine Occult Blood Urine Nitrate Urine Bilirubin Urine Urobilinogen Ur Leukocyte Esterase Urine RBC Urine WBC Ur Squamous Epith Cells Urine Bacteria Urine Mucus Micro UA Comment Ur Microscopic Review Urine Culture Comments Valproic Acid Cancelled 51 07/02/18 07/02/18 07/02/18 00:32 03:21 13:29 WBC RBC Hgb Hct MCV MCH MCHC RDW Plt Count MPV Prelim Diff (Auto) Neut % (Auto) Lymph % (Auto) [place] % (Auto) Eos % (Auto) Baso % (Auto) Neut # (Auto) Lymph # (Auto) [place] # (Auto) Eos # (Auto) Baso # (Auto) WBC Differential Seg Neuts % (Manual) Band Neuts % (Manual) Lymphocytes % (Manual) Monocytes % (Manual) Eosinophils % (Manual) Metamyelocytes % (Man) Myelocytes % (Man) Abs Neuts (Manual) Differential Comment Toxic Vacuolation Platelet Estimate Platelet Morphology RBC Morphology Sodium 142 Potassium 3.5 Chloride 110 H Carbon Dioxide 26.6 Anion Gap 5 BUN 17 Creatinine 0.48 L Estimated GFR Greater than 89 POC Glucose 110 108 Random Glucose 103 Lactic Acid Calcium 8.1 L Total Bilirubin AST ALT Alkaline Phosphatase Troponin I Total Protein Albumin Urine Color Urine Clarity Urine pH Ur Specific [place] Urine Protein Urine Glucose (UA) Urine Ketones Urine Occult Blood Urine Nitrate Urine Bilirubin Urine Urobilinogen Ur Leukocyte Esterase Urine RBC Urine WBC Ur Squamous Epith Cells Urine Bacteria Urine Mucus Micro UA Comment Ur Microscopic Review Urine Culture Comments Valproic Acid 07/02/18 07/02/18 07/02/18 18:11 20:10 21:01 WBC 9.8 RBC 3.02 L Hgb 9.6 L Hct 27.7 L MCV 91.8 MCH 31.8 MCHC 34.6 RDW 12.7 Plt Count 88 L MPV 7.6 Prelim Diff (Auto) Slide review pending Neut % (Auto) 78.8 H Lymph % (Auto) 4.9 L [place] % (Auto) 15.7 H Eos % (Auto) 0.3 Baso % (Auto) 0.3 Neut # (Auto) 7.8 H Lymph # (Auto) 0.5 L [place] # (Auto) 1.5 H Eos # (Auto) 0.0 Baso # (Auto) 0.0 WBC Differential Manual diff final Seg Neuts % (Manual) 63 Band Neuts % (Manual) 23 H Lymphocytes % (Manual) 3 L Monocytes % (Manual) 9 H Eosinophils % (Manual) Metamyelocytes % (Man) 1 Myelocytes % (Man) 1 H Abs Neuts (Manual) 8.6 H Differential Comment . Toxic Vacuolation Platelet Estimate Low L Platelet Morphology Normal RBC Morphology Normal Sodium Potassium Chloride Carbon Dioxide Anion Gap BUN Creatinine Estimated GFR POC Glucose 101 Random Glucose Lactic Acid Calcium Total Bilirubin AST ALT Alkaline Phosphatase Troponin I Total Protein Albumin Urine Color Yellow Urine Clarity Hazy H Urine pH 5.0 Ur Specific [place] 1.023 Urine Protein Negative Urine Glucose (UA) Negative Urine Ketones Trace H Urine Occult Blood Negative Urine Nitrate Negative Urine Bilirubin Negative Urine Urobilinogen 4 or greater Ur Leukocyte Esterase Negative Urine RBC 4 H Urine WBC 4 Ur Squamous Epith Cells <1 Urine Bacteria Rare H Urine Mucus Moderate H Micro UA Comment Culture not ind Ur Microscopic Review Not Reportable Urine Culture Comments Culture not ind Valproic Acid 07/02/18 07/02/18 07/02/18 21:01 21:01 21:01 WBC RBC Hgb Hct MCV MCH MCHC RDW Plt Count MPV Prelim Diff (Auto) Neut % (Auto) Lymph % (Auto) [place] % (Auto) Eos % (Auto) Baso % (Auto) Neut # (Auto) Lymph # (Auto) [place] # (Auto) Eos # (Auto) Baso # (Auto) WBC Differential Seg Neuts % (Manual) Band Neuts % (Manual) Lymphocytes % (Manual) Monocytes % (Manual) Eosinophils % (Manual) Metamyelocytes % (Man) Myelocytes % (Man) Abs Neuts (Manual) Differential Comment Toxic Vacuolation Platelet Estimate Platelet Morphology RBC Morphology Sodium 140 Potassium 3.3 L Chloride 108 H Carbon Dioxide 25.0 Anion Gap 7 BUN 15 Creatinine 0.53 L Estimated GFR Greater than 89 POC Glucose Random Glucose 121 H Lactic Acid 0.9 Calcium 7.8 L Total Bilirubin AST ALT Alkaline Phosphatase Troponin I Less than 0.02 L Total Protein Albumin Urine Color Urine Clarity Urine pH Ur Specific [place] Urine Protein Urine Glucose (UA) Urine Ketones Urine Occult Blood Urine Nitrate Urine Bilirubin Urine Urobilinogen Ur Leukocyte Esterase Urine RBC Urine WBC Ur Squamous Epith Cells Urine Bacteria Urine Mucus Micro UA Comment Ur Microscopic Review Urine Culture Comments Valproic Acid 07/02/18 07/03/18 07/03/18 23:13 03:55 03:55 WBC 10.4 RBC 3.22 L Hgb 10.2 L Hct 30.4 L MCV 94.1 MCH 31.7 MCHC 33.7 RDW 12.6 Plt Count 89 L MPV 7.4 Prelim Diff (Auto) Manual diff required Neut % (Auto) Lymph % (Auto) [place] % (Auto) Eos % (Auto) Baso % (Auto) Neut # (Auto) Lymph # (Auto) [place] # (Auto) Eos # (Auto) Baso # (Auto) WBC Differential Manual diff final Seg Neuts % (Manual) 35 Band Neuts % (Manual) 48 H Lymphocytes % (Manual) 4 L Monocytes % (Manual) 12 H Eosinophils % (Manual) 1 Metamyelocytes % (Man) Myelocytes % (Man) Abs Neuts (Manual) 8.6 H Differential Comment . Toxic Vacuolation Present H Platelet Estimate Low L Platelet Morphology Normal RBC Morphology Normal Sodium 142 Potassium 3.3 L Chloride 109 H Carbon Dioxide 25.5 Anion Gap 8 BUN 13 Creatinine 0.46 L Estimated GFR Greater than 89 POC Glucose 121 H Random Glucose 100 Lactic Acid Calcium 7.9 L Total Bilirubin 0.3 AST 26 ALT 28 Alkaline Phosphatase 85 Troponin I Total Protein 5.1 L D Albumin 1.7 L Urine Color Urine Clarity Urine pH Ur Specific [place] Urine Protein Urine Glucose (UA) Urine Ketones Urine Occult Blood Urine Nitrate Urine Bilirubin Urine Urobilinogen Ur Leukocyte Esterase Urine RBC Urine WBC Ur Squamous Epith Cells Urine Bacteria Urine Mucus Micro UA Comment Ur Microscopic Review Urine Culture Comments Valproic Acid 07/03/18 07/04/18 07/04/18 23:57 03:49 03:49 WBC 10.5 RBC 3.13 L Hgb 10.1 L Hct 28.7 L MCV 91.6 MCH 32.4 MCHC 35.4 RDW 12.5 Plt Count 109 L MPV 7.4 Prelim Diff (Auto) Neut % (Auto) 76.5 H Lymph % (Auto) 8.0 L [place] % (Auto) 14.4 H Eos % (Auto) 0.9 Baso % (Auto) 0.2 Neut # (Auto) 8.0 H Lymph # (Auto) 0.8 L [place] # (Auto) 1.5 H Eos # (Auto) 0.1 Baso # (Auto) 0.0 WBC Differential . Seg Neuts % (Manual) Band Neuts % (Manual) Lymphocytes % (Manual) Monocytes % (Manual) Eosinophils % (Manual) Metamyelocytes % (Man) Myelocytes % (Man) Abs Neuts (Manual) Differential Comment Auto diff final Toxic Vacuolation Platelet Estimate Platelet Morphology RBC Morphology Sodium 140 Potassium 3.2 L 3.1 L Chloride 107 Carbon Dioxide 28.8 Anion Gap 4 L BUN 9 Creatinine 0.58 L Estimated GFR Greater than 89 POC Glucose Random Glucose 107 H Lactic Acid Calcium 8.2 L Total Bilirubin 0.3 AST 24 ALT 25 Alkaline Phosphatase 95 Troponin I Total Protein 5.1 L Albumin 1.8 L Urine Color Urine Clarity Urine pH Ur Specific [place] Urine Protein Urine Glucose (UA) Urine Ketones Urine Occult Blood Urine Nitrate Urine Bilirubin Urine Urobilinogen Ur Leukocyte Esterase Urine RBC Urine WBC Ur Squamous Epith Cells Urine Bacteria Urine Mucus Micro UA Comment Ur Microscopic Review Urine Culture Comments Valproic Acid Result Diagrams: 07/04/18 03:49 07/04/18 03:49 Microbiology: Microbiology 07/02/18 20:10 Gram Stain - Final Sputum - Endotracheal Sputum Culture - Preliminary Pseudomonas aeruginosa S. aureus MRSA 07/02/18 20:55 Aerobic Blood Culture - Preliminary Blood - Peripheral No growth in 2 days Anaerobic Blood Culture - Preliminary No growth in 2 days 07/02/18 21:01 Aerobic Blood Culture - Preliminary Blood - Peripheral No growth in 2 days Anaerobic Blood Culture - Preliminary No growth in 2 days Imaging: ITS Impressions Shoulder X-Ray 06/24/18 09:42 CONCLUSION: Acute nondisplaced humeral neck fracture. Chest X-Ray 07/02/18 00:00 CONCLUSION: No significant change Head CT 07/04/18 06:00 CONCLUSION: 1. Interval decrease in the acute blood products in the right frontal lobe and decrease in the intraventricular blood products. 2. The right frontal ventricular catheter tip is only barely within the right frontal horn. 3. Other stable brain changes include generalized atrophy with bilateral areas of encephalomalacia. . Procedures: 06/24/2018: Endotracheal intubation 06/24/2018: NGT placement Assessment and Plan Pertinent Non-Medical Issues: Psychosocial: Per review of notes: Patient was born in . He moved to [place] in 2011. Both of his parents are . His father from complications of liver cirrhosis at an unknown age, and his mother of cancer when he was an infant. He was raised by his grandparents. He has no known siblings. Mr. castillo has been and 2 times. Patient reportedly had one daughter, Sharon. She approximately 2 years ago. 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 Patient has had multiple psychiatric hospitalizations. Spiritual: Baptized Yazidi, however there is no current active scientology affiliation. Legal: Per [place] statutes, in the absence of written advanced directives healthcare proxy decision making falls to the patient's daughter-Sharon. Ethical issues impacting care: No known ethical issues impacting care at this time. Important Contacts: Lindy Rojo, guardian: [phone] Code Status: Alternative Code (Intubation only) Plan: * ALTERNATE CODE-intubation only * Patient completed written advanced directives on 06/15/10. His living will states he would not want his life to be prolonged nor would he want life- sustaining treatment to be provided or continued if his agent believed the burdens of the treatment outweighed the expected benefits. He would want his agent to consider the relief of suffering, the expense involved and the quality as well as the possible extension of his life in making decisions concerning life-sustaining treatment. * Lindy Rojo is the patient's appointed guardian. * Spoke with Lindy Rojo who is the patient's appointed guardian this morning. Family wishes to proceed with placement of tracheostomy and PEG tube placement. Consents signed by Ms. Rojo at visit. * Patient discussed with the [facility] nurse, Stefanie. * Symptom management-pain: Potential causes of pain include recent falls, left humerus fracture, invasive lines etc. PRN morphine 2-4 mg is available every 4 hours as needed for pain. Received 2 mg of IV morphine at 7 AM when patient had an episode of SVT, suspicious for autonomic response to pain. He is unable to make his needs known. Continue to monitor for non-verbal s/s of pain. * Symptom management-altered mental status: Multifactoral. Patient has a baseline history of dementia, schizophrenia/bipolar and previous CVA. Recent CT head on 06/24/2018 showed an acute intraparenchymal hemorrhage involving the right frontal lobe, right temporal lobe and acute subdural hemorrhage involving the right frontal lobe and interhemispheric fissure. There was no mass-effect. Multiple areas of encephalomalacia were stable. Given patient's severe encephalopathy, a tracheostomy and PEG tube will be necessary as medical treatment goals remain aggressive at this time. * Palliative care will continue to follow this patient throughout his hospitalization to establish trust, assist with symptom management and clarification of medical treatment goals. Attestation Attestation: To help prompt me to consider important information that might be impacting today's encounter and assessment, information from prior notes written by myself or my colleagues may have been "brought forward" into today's note. My signature on this note, however, is an attestation that I personally performed the exam, history, and/or decision-making noted today, and, unless otherwise indicated, the interactions with patient, family, and staff as well as the review of records all occurred today. I also attest that the listed assessment and stated plan reflect my best clinical judgment today based on the combination of historical information, prior notes, and today's exam/ interactions. When time spent is documented, it refers only to time spent today by the signer, or if indicated, combined time spent today by collaborating physician/nurse practitioner. .
--- NOTE | 2018-07-04 18:19 | P.PNCC ---
Subjective Subjective Remarks/Hospital Course: 06/24: 67-year-old male with a medical history significant for dementia, seizure disorder, previous stroke, hypertension who was [facility] after he had multiple seizures this morning. On arrival in the ER he appeared to be seizing and was intubated by ER physician and placed on mechanical ventilation and sedated with propofol. Head CT done in the ER revealed left frontal intraparenchymal bleed with subdural hemorrhage. Patient was also noted to have a left humerus neck fracture on x-ray. He reportedly has been falling at the [facility] multiple times. Patient has been on Eliquis at home and he received K Centra following arrival to the ER for reversal. 06/25: Remains sedated, orally intubated on mechanical ventilation. Head CT done today with new area of small subdural hemorrhage and increase in size of intraventricular hemorrhage, intraparenchymal hemorrhage same size. 06/26: Remains sedated, orally intubated on mechanical ventilation. Repeat head CT shows slight worsening of intra-cerebral hemorrhage yesterday. 06/27: Remains sedated, orally intubated on mechanical ventilation. 06/28: Endotracheal tube dislodged, replaced this morning. Oxygen saturation remained at 100% throughout. Withdraws four limbs and localizes all to pain. No obvious seizure activity. Not alert enough to extubate. 06/29: More active today. Will start spontaneous breathing trials. He EVD elevated to 5 cm, observe neurologic function closely. 06/30: Tolerating elevated EVD. Continue spontaneous breathing trials. Replace potassium today. 07/01: EVD drainage remains light yellow. Patient remains to somnolent to control airway if we extubate. She is very comfortable on spontaneous breathing trials with good respiratory mechanics and strength. 07/02: Remains encephalopathic, orally intubated on mechanical ventilation. Ventriculostomy remains in place. 07/03: Remains encephalopathic, orally intubated on mechanical ventilation. Ventriculostomy clamped today. 07/04: Remains encephalopathic, orally intubated on mechanical ventilation. Febrile this morning. Ventriculostomy discontinued today. Sputum growing MRSA and Pseudomonas from 07/02 cultures. On IV Zosyn. Added IV Zyvox on 07/04. Guardian wishes to proceed with tracheostomy and PEG tube for palliative care. Consulted GI for PEG tube placement. Objective Vital Signs / I&O: Vital Signs 07/03/18 18:30 07/03/18 19:00 07/03/18 19:30 Temperature Pulse Rate 67 68 68 Respiratory Rate 17 19 15 Blood Pressure 125/67 129/80 129/73 Pulse Oximetry 98 98 98 07/03/18 20:00 07/03/18 20:25 07/03/18 20:30 Temperature 99.4 F Pulse Rate 80 86 Respiratory Rate 17 15 15 Blood Pressure 142/73 H 138/67 Pulse Oximetry 98 100 100 07/03/18 21:00 07/03/18 21:30 07/03/18 22:00 Temperature Pulse Rate 79 70 68 Respiratory Rate 16 16 15 Blood Pressure 118/95 H 129/66 147/70 H Pulse Oximetry 99 98 98 07/03/18 22:30 07/03/18 23:00 07/03/18 23:30 Temperature Pulse Rate 70 66 64 Respiratory Rate 14 16 18 Blood Pressure 126/64 119/65 123/64 Pulse Oximetry 98 98 98 07/04/18 00:00 07/04/18 00:18 07/04/18 00:30 Temperature 98.9 F Pulse Rate 66 62 Respiratory Rate 16 15 16 Blood Pressure 130/71 119/65 Pulse Oximetry 98 98 98 07/04/18 01:00 07/04/18 01:30 07/04/18 02:00 Temperature Pulse Rate 62 63 61 Respiratory Rate 16 17 15 Blood Pressure 128/61 141/71 H 130/71 Pulse Oximetry 98 98 98 07/04/18 02:30 07/04/18 03:00 07/04/18 03:30 Temperature Pulse Rate 61 62 61 Respiratory Rate 15 15 16 Blood Pressure 131/73 124/70 126/68 Pulse Oximetry 99 99 98 07/04/18 04:00 07/04/18 04:30 07/04/18 05:00 Temperature 98.7 F Pulse Rate 63 69 66 Respiratory Rate 14 17 18 Blood Pressure 131/68 144/77 H Pulse Oximetry 98 99 100 07/04/18 05:01 07/04/18 05:24 07/04/18 05:31 Temperature Pulse Rate 65 65 Respiratory Rate 16 18 Blood Pressure 125/68 122/68 Pulse Oximetry 100 98 97 07/04/18 06:00 07/04/18 06:01 07/04/18 08:50 Temperature Pulse Rate 66 64 Respiratory Rate 18 17 15 Blood Pressure 121/67 Pulse Oximetry 98 98 96 07/04/18 10:55 07/04/18 11:00 07/04/18 11:05 Temperature Pulse Rate 61 63 62 Respiratory Rate 104 H 107 H 85 H Blood Pressure 87/54 L 86/54 L 87/53 L Pulse Oximetry 96 96 96 07/04/18 11:10 07/04/18 11:15 07/04/18 11:20 Temperature Pulse Rate 61 66 63 Respiratory Rate 106 H 103 H 113 H Blood Pressure 90/53 L 91/54 L 91/52 L Pulse Oximetry 96 96 96 07/04/18 11:25 07/04/18 11:30 07/04/18 11:35 Temperature Pulse Rate 69 60 64 Respiratory Rate 105 H 122 H 76 H Blood Pressure 92/55 L 89/54 L 92/50 L Pulse Oximetry 97 97 98 07/04/18 11:40 07/04/18 11:45 07/04/18 11:50 Temperature Pulse Rate 60 59 L 59 L Respiratory Rate 73 H 113 H 113 H Blood Pressure 83/52 L 91/56 L 88/54 L Pulse Oximetry 98 98 98 07/04/18 11:55 07/04/18 12:00 07/04/18 12:05 Temperature Pulse Rate 59 L 57 L 60 Respiratory Rate 113 H 112 H 108 H Blood Pressure 94/51 L 87/53 L 86/51 L Pulse Oximetry 98 98 98 07/04/18 12:10 07/04/18 12:15 07/04/18 12:20 Temperature Pulse Rate 57 L 60 59 L Respiratory Rate 85 H 103 H 81 H Blood Pressure 82/53 L 88/51 L 85/53 L Pulse Oximetry 98 98 98 07/04/18 12:25 07/04/18 12:30 07/04/18 12:35 Temperature Pulse Rate 56 L 55 L 58 L Respiratory Rate 94 H 72 H 58 H Blood Pressure 85/51 L 84/53 L 84/52 L Pulse Oximetry 99 99 99 07/04/18 12:40 07/04/18 12:45 07/04/18 12:50 Temperature Pulse Rate 58 L 60 58 L Respiratory Rate 85 H 102 H 85 H Blood Pressure 86/50 L 94/53 L 91/52 L Pulse Oximetry 99 99 98 07/04/18 12:55 07/04/18 13:00 07/04/18 13:05 Temperature Pulse Rate 59 L 61 62 Respiratory Rate 87 H 81 H 89 H Blood Pressure 90/50 L 93/51 L 99/55 L Pulse Oximetry 99 99 99 07/04/18 14:30 07/04/18 14:35 07/04/18 14:40 Temperature Pulse Rate 72 73 71 Respiratory Rate 73 H 82 H 80 H Blood Pressure 113/60 109/55 L 105/58 L Pulse Oximetry 100 99 100 07/04/18 14:45 07/04/18 14:50 07/04/18 14:55 Temperature Pulse Rate 71 72 71 Respiratory Rate 87 H 68 H 86 H Blood Pressure 103/57 L 108/59 L 107/58 L Pulse Oximetry 100 99 99 07/04/18 15:00 07/04/18 15:05 07/04/18 15:10 Temperature Pulse Rate 71 71 69 Respiratory Rate 81 H 70 H 88 H Blood Pressure 106/57 L 110/58 L 103/57 L Pulse Oximetry 100 99 100 07/04/18 15:15 07/04/18 15:20 07/04/18 15:25 Temperature Pulse Rate 68 67 65 Respiratory Rate 85 H 74 H 74 H Blood Pressure 104/57 L 108/55 L 98/55 L Pulse Oximetry 100 100 100 07/04/18 15:30 07/04/18 15:35 07/04/18 15:40 Temperature Pulse Rate 66 65 65 Respiratory Rate 91 H 77 H 72 H Blood Pressure 103/58 L 105/57 L 100/56 L Pulse Oximetry 100 100 100 07/04/18 15:45 07/04/18 15:50 07/04/18 15:55 Temperature Pulse Rate 65 65 66 Respiratory Rate 79 H 89 H 71 H Blood Pressure 104/55 L 99/57 L 119/82 Pulse Oximetry 100 100 100 07/04/18 16:00 07/04/18 16:05 07/04/18 16:10 Temperature 99.7 F H Pulse Rate 64 65 65 Respiratory Rate 83 H 71 H 44 H Blood Pressure 105/60 112/62 105/59 L Pulse Oximetry 100 100 100 07/04/18 16:15 07/04/18 16:20 07/04/18 16:25 Temperature Pulse Rate 64 63 63 Respiratory Rate 65 H 57 H 75 H Blood Pressure 107/59 L 105/57 L 108/64 Pulse Oximetry 100 100 100 07/04/18 16:30 Temperature Pulse Rate 65 Respiratory Rate 65 H Blood Pressure 112/66 Pulse Oximetry 100 Intake & Output 07/03/18 07/04/18 07/04/18 18:59 06:59 18:59 Intake Total 2445.5 / 2445.5 2112.5 / 2112.5 1615.0 / 1615.0 Output Total 1850 / 1850 2049 Balance 595.5 / 595.5 62.5 / 62.5 1615.0 / 1615.0 Weight 98.1 kg Intake: IV 1607.5 / 1607.5 1507.5 / 1507.5 1615.0 / 1615.0 NS Inj 1,000 ML @ 125 mls/hr IV 1100 / 1100 1000 / 1000 1000 / 1000 .CONT .Q8H ESTELA Rx#:[id number] Zosyn 4.5 GM Premix 4.5 gm In 200 / 200 200 / 200 200 / 200 100 ml @ 200 mls/hr IV.SIG Q6H ESTELA Rx#:[id number] KCl 20 mEq Premix Inj 20 meq In 100 / 100 100 / 100 100 / 100 100 ml @ 50 mls/hr IV.SIG Q2H PRN Rx#:[id number] Depacon Inj 750 MG In NS Inj 107.5 / 107.5 107.5 / 107.5 215.0 / 215.0 100 ML @ 105 mls/hr IV.SIG Q8HR ESTELA Rx#:[id number] Keppra 1000 mg/100 mL Premix 100 / 100 100 / 100 100 / 100 100 ML @ 400 mls/hr IV.SIG Q12H ESTELA Rx#:[id number] Tube Feeding 638 / 638 485 / 485 Water Bolus Amount 200 / 200 120 / 120 Output: Urine 1849 Urine Amount (Catheter) 2049 Indwelling Urethral Catheter 2049 Other: Date of Last Bowel Movement 07/03/18 07/04/18 07/04/18 # Bowel Movements 1 1 Result Diagrams: 07/04/18 03:49 07/04/18 03:49 Objective Remarks: HEENT/ Neuro: No sedation, orally intubated, Pupils 2 mm, reactive to light bilaterally. Localizes for 4 limbs. Does not open his eyes to stimulation. Neck: Supple. Orotracheal intubation. Chest/Pulm: Good air movement bilaterally while on SBT, no wheezing or crackles. Some clear watery secretions. CVS: S1-S2 Regular, no murmur, no JVD. GI/abdomen: Soft, nontender, nondistended, bowel sounds present, no guarding. Extremities: Warm bilaterally, no edema. Well perfused. Assessment and Plan - Assessment and Plan Plan: 67-year-old male with: Status epilepticus ICH/SDH Acute respiratory failure on mechanical ventilation Left humerus fracture History of dementia History of stroke Hypertension Suspected sepsis Plan: Neuro: Hold sedation. Keppra 1 g IV every 12 hourly. Valproate 500 mg IV every 8 hourly switched from p.o. dose at home. Follow valproate level. EEG did not reveal seizure activity. Neurology consult noted. Neurosurgery following for ICH, discussed with Dr. Jones - s/p ventriculostomy 06/24. ICPs normal. EVD discontinued 07/04 Cardiovascular: Hold antihypertensives. Received fluid bolus for hypotension on 07/02. Pulmonary: Continue mechanical ventilation, vent bundle, bronchodilators as needed. Continue spontaneous breathing trials. Legal guardian wishes to proceed with tracheostomy GI/liver: Tolerating tube feeds, follow prealbumin weekly. Consult GI for PEG tube placement Renal/: IV hydration, strict intake, monitor and replete electrolytes, follow BUN and creatinine. MSK: Orthopedics consult for left humerus fracture noted - nonoperative management. ID: Pancultures ordered on 07/03 and started on empiric antibiotic coverage with IV Zosyn in view of fevers and bandemia. Sputum culture 07/02: MRSA and Pseudomonas. Added IV Zyvox on 07/04 to cover for MRSA pneumonia Endocrine: SSI as needed for glycemic control if needed Heme: Follow CBC. Received K Centra to reverse Eliquis in the ER. Prophylaxis: Pepcid/SCDs. Palliative care following. Patient is DNR status at this time. Overall impression: Patient remains critically ill, requiring intubation and mechanical ventilation for treatment of the severe neurologic encephalopathy. Seizure activity appears to be controlled. Unable to wean from ventilator but will continue spontaneous trials daily. Replace electrolytes daily. Will need tracheostomy and PEG tube if aggressive care desired in view of concern regarding airway protection and swallowing. Palliative care discussed with patient's POA/legal guardian on 07/04. Initial to proceed with tracheostomy and PEG tube placement. Critical care time 35 minutes aside from procedures.
[2018-07-05] MEDS: Oral Hygiene Kit OROPHARYNG SCH ×4 (00:17→15:52)
[2018-07-05] MEDS: Piperacil/Tazo 4.5 GM Premix 4.5 GM/100 ML BAG IV.SIG SCH ×3 (02:33→15:22)
[2018-07-05] MEDS: Valproate Inj 750 MG in Sodium Chlor 0.9% Inj 100 ML IV.SIG SCH ×3 (05:13→22:24)
[2018-07-05 05:33] LABS: Baso % (Auto) 0.4 % (0.0-2.0); Eos # (Auto) 0.2 th/mm3 (0.0-0.4); Eos % (Auto) 1.9 % (0.0-4.0); Hemoglobin 8.5 gm/dL (13.0-17.0); Lymph # (Auto) 1.2 th/mm3 (1.0-4.8); Lymph % (Auto) 12.7 % (9.0-44.0); Mean Corpuscular HGB Conc 33.9 % (32.0-36.0); Mean Corpuscular Volume 94.4 fL (80.0-100.0); Mono # (Auto) 1.7 th/mm3 (0.0-0.9); Neut # (Auto) 6.6 th/mm3 (1.8-7.7); Platelet Count 107 th/mm3 (150-450); Red Blood Count 2.65 mil/mm3 (4.50-5.90); White Blood Count 9.7 th/mm3 (4.0-11.0)
[2018-07-05 05:56] LABS: Alanine Aminotransferase 23 U/L (12-78); Albumin 1.5 g/dL (3.4-5.0); Alkaline Phosphatase 86 U/L (45-117); Anion Gap 5 meq/L (5-15); Aspartate Aminotransferase 23 U/L (15-37); Blood Urea Nitrogen 9 mg/dL (7-18); Calcium 6.8 mg/dL (8.5-10.1); Carbon Dioxide 24.9 meq/L (21.0-32.0); Chloride 111 meq/L (98-107); Glomerular Filtration Rate Greater Than 89 mL/min (>89); Glucose,Random 77 mg/dL (74-106); Potassium 5.4 meq/L (3.5-5.1); Sodium 141 meq/L (136-145); Total Protein 4.6 g/dL (6.4-8.2)
[2018-07-05] MEDS: Famotidine 20 MG Tablet NG/OG SCH ×2 (08:39→20:07)
[2018-07-05] MEDS: Metoprolol Tartrate 25 MG Tablet PO SCH ×2 (08:39→20:08)
[2018-07-05] MEDS: amLODIPine 10 MG Tablet PO SCH (08:39)
[2018-07-05] MEDS: levETIRAcetam 1000mg/100mL Inj 100 ML IV.SIG SCH ×2 (08:40→20:07)
[2018-07-05] MEDS: Chlorhexidine 0.12% Oral Kit 15 ML UDC OROPHARYNG SCH ×2 (08:41→20:08)
[2018-07-05] MEDS: Sod Chloride 0.9% Inj 1,000 ML IV.CONT SCH (10:43)
--- NOTE | 2018-07-05 12:35 | P.PNNS ---
Subjective Interval history: no change Physical Exam Vital signs: Vital Signs 07/04/18 12:35 07/04/18 12:40 07/04/18 12:45 Temperature Pulse Rate 58 L 58 L 60 Respiratory Rate 58 H 85 H 102 H Blood Pressure 84/52 L 86/50 L 94/53 L Pulse Oximetry 99 99 99 07/04/18 12:50 07/04/18 12:55 07/04/18 13:00 Temperature Pulse Rate 58 L 59 L 61 Respiratory Rate 85 H 87 H 81 H Blood Pressure 91/52 L 90/50 L 93/51 L Pulse Oximetry 98 99 99 07/04/18 13:05 07/04/18 14:30 07/04/18 14:35 Temperature Pulse Rate 62 72 73 Respiratory Rate 89 H 73 H 82 H Blood Pressure 99/55 L 113/60 109/55 L Pulse Oximetry 99 100 99 07/04/18 14:40 07/04/18 14:45 07/04/18 14:50 Temperature Pulse Rate 71 71 72 Respiratory Rate 80 H 87 H 68 H Blood Pressure 105/58 L 103/57 L 108/59 L Pulse Oximetry 100 100 99 07/04/18 14:55 07/04/18 15:00 07/04/18 15:05 Temperature Pulse Rate 71 71 71 Respiratory Rate 86 H 81 H 70 H Blood Pressure 107/58 L 106/57 L 110/58 L Pulse Oximetry 99 100 99 07/04/18 15:10 07/04/18 15:15 07/04/18 15:20 Temperature Pulse Rate 69 68 67 Respiratory Rate 88 H 85 H 74 H Blood Pressure 103/57 L 104/57 L 108/55 L Pulse Oximetry 100 100 100 07/04/18 15:25 07/04/18 15:30 07/04/18 15:35 Temperature Pulse Rate 65 66 65 Respiratory Rate 74 H 91 H 77 H Blood Pressure 98/55 L 103/58 L 105/57 L Pulse Oximetry 100 100 100 07/04/18 15:40 07/04/18 15:45 07/04/18 15:50 Temperature Pulse Rate 65 65 65 Respiratory Rate 72 H 79 H 89 H Blood Pressure 100/56 L 104/55 L 99/57 L Pulse Oximetry 100 100 100 07/04/18 15:55 07/04/18 16:00 07/04/18 16:05 Temperature 99.7 F H Pulse Rate 66 64 65 Respiratory Rate 71 H 83 H 71 H Blood Pressure 119/82 105/60 112/62 Pulse Oximetry 100 100 100 07/04/18 16:10 07/04/18 16:15 07/04/18 16:20 Temperature Pulse Rate 65 64 63 Respiratory Rate 44 H 65 H 57 H Blood Pressure 105/59 L 107/59 L 105/57 L Pulse Oximetry 100 100 100 07/04/18 16:25 07/04/18 16:30 07/04/18 17:35 Temperature Pulse Rate 63 65 66 Respiratory Rate 75 H 65 H 66 H Blood Pressure 108/64 112/66 119/75 Pulse Oximetry 100 100 100 07/04/18 17:40 07/04/18 17:45 07/04/18 17:50 Temperature Pulse Rate 65 65 62 Respiratory Rate 70 H 70 H 45 H Blood Pressure 114/61 116/59 L 110/57 L Pulse Oximetry 100 100 100 07/04/18 17:55 07/04/18 18:00 07/04/18 18:05 Temperature Pulse Rate 62 62 66 Respiratory Rate 73 H 74 H 53 H Blood Pressure 110/62 109/61 126/60 Pulse Oximetry 100 100 100 07/04/18 18:10 07/04/18 18:15 07/04/18 18:20 Temperature Pulse Rate 67 65 65 Respiratory Rate 56 H 63 H 65 H Blood Pressure 117/86 127/63 118/59 L Pulse Oximetry 100 100 100 07/04/18 18:25 07/04/18 18:30 07/04/18 18:35 Temperature Pulse Rate 66 66 65 Respiratory Rate 55 H 35 H 68 H Blood Pressure 113/56 L 127/69 122/63 Pulse Oximetry 100 100 100 07/04/18 18:40 07/04/18 18:45 07/04/18 18:50 Temperature Pulse Rate 64 64 70 Respiratory Rate 58 H 63 H 82 H Blood Pressure 116/61 121/61 120/78 Pulse Oximetry 100 100 100 07/04/18 18:55 07/04/18 19:00 07/04/18 19:05 Temperature Pulse Rate 65 67 64 Respiratory Rate 74 H 77 H 73 H Blood Pressure 123/69 125/60 118/61 Pulse Oximetry 100 100 100 07/04/18 19:10 07/04/18 19:15 07/04/18 19:20 Temperature Pulse Rate 66 64 64 Respiratory Rate 67 H 70 H 58 H Blood Pressure 123/68 118/66 117/65 Pulse Oximetry 100 100 100 07/04/18 19:25 07/04/18 19:30 07/04/18 19:35 Temperature Pulse Rate 66 66 67 Respiratory Rate 70 H 65 H 44 H Blood Pressure 123/70 112/62 122/66 Pulse Oximetry 100 100 100 07/04/18 19:40 07/04/18 19:45 07/04/18 19:50 Temperature Pulse Rate 67 67 66 Respiratory Rate 61 H 72 H 59 H Blood Pressure 123/68 119/70 124/60 Pulse Oximetry 100 100 100 07/04/18 19:55 07/04/18 20:00 07/04/18 20:06 Temperature 99.3 F Pulse Rate 67 63 81 Respiratory Rate 55 H 66 H 49 H Blood Pressure 128/65 131/68 167/74 H Pulse Oximetry 100 100 100 07/04/18 20:10 07/04/18 20:16 07/04/18 20:57 Temperature Pulse Rate 74 66 63 Respiratory Rate 46 H 19 14 Blood Pressure 184/75 H 187/111 H 131/67 Pulse Oximetry 100 100 100 07/04/18 21:00 07/04/18 21:36 07/04/18 22:00 Temperature Pulse Rate 64 51 L 51 L Respiratory Rate 22 14 14 Blood Pressure 122/63 135/75 Pulse Oximetry 100 100 100 07/04/18 23:00 07/04/18 23:03 07/05/18 00:00 Temperature 98.8 F Pulse Rate 57 L 64 56 L Respiratory Rate 14 19 14 Blood Pressure 147/84 H 143/73 H Pulse Oximetry 100 100 100 07/05/18 00:16 07/05/18 01:00 07/05/18 02:00 Temperature Pulse Rate 55 L 51 L Respiratory Rate 14 14 14 Blood Pressure 130/63 114/60 Pulse Oximetry 100 99 99 07/05/18 03:00 07/05/18 04:00 07/05/18 05:00 Temperature Pulse Rate 53 L 69 58 L Respiratory Rate 12 15 14 Blood Pressure 122/60 Pulse Oximetry 99 100 07/05/18 05:14 07/05/18 06:00 07/05/18 07:00 Temperature Pulse Rate 57 L 60 54 L Respiratory Rate 14 14 14 Blood Pressure 114/71 112/65 119/67 Pulse Oximetry 100 100 100 07/05/18 08:00 07/05/18 08:05 07/05/18 09:00 Temperature 98.6 F Pulse Rate 53 L 57 L Respiratory Rate 14 14 12 Blood Pressure 125/69 137/73 Pulse Oximetry 100 100 100 07/05/18 10:00 07/05/18 11:23 Temperature 98.8 F Pulse Rate 59 L Respiratory Rate 14 14 Blood Pressure 132/74 Pulse Oximetry 100 100 Intake & Output 07/04/18 07/05/18 07/05/18 18:59 06:59 18:59 Intake Total 2364.0 / 2364.0 1592.0 / 1592.0 500 / 500 Output Total 1300 / 1300 1350 / 1350 Balance 1064.0 / 1064.0 242.0 / 242.0 500 / 500 Weight 95.7 kg Intake: IV 1615.0 / 1615.0 915.0 / 915.0 500 / 500 NS Inj 1,000 ML @ 125 mls/hr IV 1000 / 1000 .CONT .Q8H ESTELA Rx#:[id number] Zyvox 600 mg Premix 300 ML @ 300 / 300 300 / 300 300 mls/hr IV.SIG Q12H ESTELA Rx#: [id number] Zosyn 4.5 GM Premix 4.5 gm In 200 / 200 200 / 200 100 / 100 100 ml @ 200 mls/hr IV.SIG Q6H ESTELA Rx#:[id number] KCl 20 mEq Premix Inj 20 meq In 100 / 100 100 / 100 100 ml @ 50 mls/hr IV.SIG Q2H PRN Rx#:[id number] Depacon Inj 750 MG In NS Inj 215.0 / 215.0 215.0 / 215.0 100 ML @ 105 mls/hr IV.SIG Q8HR ESTELA Rx#:[id number] Keppra 1000 mg/100 mL Premix 100 / 100 100 / 100 100 / 100 100 ML @ 400 mls/hr IV.SIG Q12H ESTELA Rx#:[id number] Tube Feeding 549 / 549 477 / 477 Water Bolus Amount 200 / 200 200 / 200 Output: Urine Amount (Catheter) 1300 / 1300 1350 / 1350 Indwelling Urethral Catheter 1300 / 1300 1350 / 1350 Gastric Drainage 0 / 0 Oral Orogastric Tube 0 / 0 Other: Date of Last Bowel Movement 07/04/18 07/05/18 07/05/18 # Incontinent Bowel Movements 1 Narrative: intubated grimaces but i did not see eye opening, not following commands ventriculostomy drain clamped, ICPs stable - Urinary Catheter Management Indwelling Urethral Catheter Cath placed during this visit: yes Reason for continuing: Acute urinary retention Insertion date: 06/24/18 Insertion time: 09:50 Assessment and Plan - Assessment (1) Intractable seizure disorder Code(s): G40.919 - Epilepsy, unspecified, intractable, without status epilepticus Status: Acute Plan: 67-year-old male with: Status epilepticus ICH/SDH Acute respiratory failure on mechanical ventilation Left humerus fracture History of dementia History of stroke Hypertension Plan: Neuro: Continue neuro checks, hold sedation. Chalenging ventriculostomy catheter , increase to 10 cm H2O. Continue Keppra 1 g IV every 12 hourly. Continue Valproate 500 mg IV every 8 hourly switched from p.o. dose at home. Follow valproate level. EEG did not reveal seizure activity. Neurology consult noted. ICPs remain normal. Cardiovascular: Fluid balance about right. Hold antihypertensives. Pulmonary: Continue mechanical ventilation, vent bundle, bronchodilators as needed. Continue spontaneous breathing trials at 10/5. GI/liver: Tolerating tube feeds, follow prealbumin weekly. Renal/: Tube feedings for hydration, strict intake, monitor and replete electrolytes, follow BUN and creatinine. Orthopedics consult for left humerus fracture noted - nonoperative management. ID: No indication for antibiotics at this time. Watch for sepsis. Serial CBC Endocrine: SSI as needed for glycemic control if needed Heme: Follow CBC. Received K Centra to reverse Eliquis in the ER. Prophylaxis: Pepcid for GI prophylaxis Jd hose and SCDs. Palliative care following. The exam, history, and the medical decision-making described in the above note were completed with the assistance of the mid-level provider. I reviewed and agree with the findings presented. I attest that I had a [id number] encounter with the patient on the same day, and personally performed and documented my assessment and findings in the medical record. (2) ICH (intracerebral hemorrhage) Code(s): I61.9 - Nontraumatic intracerebral hemorrhage, unspecified Status: Acute Qualifiers: Intracerebral hemorrhage etiology: nontraumatic Cerebral hemorrhage location: multiple localized areas of cerebrum Laterality: right Qualified Code(s): I61.6 - Nontraumatic intracerebral hemorrhage, multiple localized (3) Encephalomalacia Code(s): G93.89 - Other specified disorders of brain Status: Acute (4) Dementia Code(s): F03.90 - Unspecified dementia without behavioral disturbance Status: Acute - Plan A: 67 y/o M with right frontal ICH and IVH. s/p Ventriculostomy drain. Follow up Head CT 07/04/18 06:00 CONCLUSION: 1. Interval decrease in the acute blood products in the right frontal lobe and decrease in the intraventricular blood products. 2. The right frontal ventricular catheter tip is only barely within the right frontal horn. 3. Other stable brain changes include generalized atrophy with bilateral areas of encephalomalacia. P: Continue to monitor neuro exam closely. Continue with current care Continue with ventriculostomy drain. Wean sedation and Vent as vitals allow and as tolerated. 06/[address] shows stable. EVD at 0 will raise to 5 tomorrow after Versed wears off. ICPs stable 06/29 Raise EVD to 5 above EAC today, start to challenge. Last shift 100cc out at 0 above, ICP 0-2 06/30 cont challenge ventriculostomy drain - raise to 10 cm H20, cont monitor ICPs. cont neuro checks and f/u exam. ok to start sq lovenox for dvt prophylaxis 07/02: raise EVD to 20 cm H20, cont ICP monitor, cont critical care management - vent weaning. may need trach 07/03: clamp EVD, cont ICP monitor, cont neuro checks, f/u CT Brain tomorrow morning 07/04: f/u CT Brain reviewed, clear per Dr. Jones to remove ventriculostomy drain. Ventriculostomy drain removed, using sterile technique single stitch placed using 3-0 silk. the patient tolerated the procedure well. 07/05: no change
--- NOTE | 2018-07-05 14:14 | P.PNCC ---
Subjective Subjective Remarks/Hospital Course: 06/24: 67-year-old male with a medical history significant for dementia, seizure disorder, previous stroke, hypertension who was brought to the ER from [facility] after he had multiple seizures this morning. On arrival in the ER he appeared to be seizing and was intubated by ER physician and placed on mechanical ventilation and sedated with propofol. Head CT done in the ER revealed left frontal intraparenchymal bleed with subdural hemorrhage. Patient was also noted to have a left humerus neck fracture on x-ray. He reportedly has been falling at the [facility] multiple times. Patient has been on Eliquis at home and he received K Centra following arrival to the ER for reversal. 06/25: Remains sedated, orally intubated on mechanical ventilation. Head CT done today with new area of small subdural hemorrhage and increase in size of intraventricular hemorrhage, intraparenchymal hemorrhage same size. 06/26: Remains sedated, orally intubated on mechanical ventilation. Repeat head CT shows slight worsening of intra-cerebral hemorrhage yesterday. 06/27: Remains sedated, orally intubated on mechanical ventilation. 06/28: Endotracheal tube dislodged, replaced this morning. Oxygen saturation remained at 100% throughout. Withdraws four limbs and localizes all to pain. No obvious seizure activity. Not alert enough to extubate. 06/29: More active today. Will start spontaneous breathing trials. He EVD elevated to 5 cm, observe neurologic function closely. 06/30: Tolerating elevated EVD. Continue spontaneous breathing trials. Replace potassium today. 07/01: EVD drainage remains light yellow. Patient remains to somnolent to control airway if we extubate. She is very comfortable on spontaneous breathing trials with good respiratory mechanics and strength. 07/02: Remains encephalopathic, orally intubated on mechanical ventilation. Ventriculostomy remains in place. 07/03: Remains encephalopathic, orally intubated on mechanical ventilation. Ventriculostomy clamped today. 07/04: Remains encephalopathic, orally intubated on mechanical ventilation. Febrile this morning. Ventriculostomy discontinued today. Sputum growing MRSA and Pseudomonas from 07/02 cultures. On IV Zosyn. Added IV Zyvox on 07/04. Guardian wishes to proceed with tracheostomy and PEG tube for palliative care. Consulted GI for PEG tube placement. 12/01: Will convert to cefepime until sensitivities back. No change in neurologic function. Remains ventilator dependent. Objective Vital Signs / I&O: Vital Signs 07/04/18 14:30 07/04/18 14:35 07/04/18 14:40 Temperature Pulse Rate 72 73 71 Respiratory Rate 73 H 82 H 80 H Blood Pressure 113/60 109/55 L 105/58 L Pulse Oximetry 100 99 100 07/04/18 14:45 07/04/18 14:50 07/04/18 14:55 Temperature Pulse Rate 71 72 71 Respiratory Rate 87 H 68 H 86 H Blood Pressure 103/57 L 108/59 L 107/58 L Pulse Oximetry 100 99 99 07/04/18 15:00 07/04/18 15:05 07/04/18 15:10 Temperature Pulse Rate 71 71 69 Respiratory Rate 81 H 70 H 88 H Blood Pressure 106/57 L 110/58 L 103/57 L Pulse Oximetry 100 99 100 07/04/18 15:15 07/04/18 15:20 07/04/18 15:25 Temperature Pulse Rate 68 67 65 Respiratory Rate 85 H 74 H 74 H Blood Pressure 104/57 L 108/55 L 98/55 L Pulse Oximetry 100 100 100 07/04/18 15:30 07/04/18 15:35 07/04/18 15:40 Temperature Pulse Rate 66 65 65 Respiratory Rate 91 H 77 H 72 H Blood Pressure 103/58 L 105/57 L 100/56 L Pulse Oximetry 100 100 100 07/04/18 15:45 07/04/18 15:50 07/04/18 15:55 Temperature Pulse Rate 65 65 66 Respiratory Rate 79 H 89 H 71 H Blood Pressure 104/55 L 99/57 L 119/82 Pulse Oximetry 100 100 100 07/04/18 16:00 07/04/18 16:05 07/04/18 16:10 Temperature 99.7 F H Pulse Rate 64 65 65 Respiratory Rate 83 H 71 H 44 H Blood Pressure 105/60 112/62 105/59 L Pulse Oximetry 100 100 100 07/04/18 16:15 07/04/18 16:20 07/04/18 16:25 Temperature Pulse Rate 64 63 63 Respiratory Rate 65 H 57 H 75 H Blood Pressure 107/59 L 105/57 L 108/64 Pulse Oximetry 100 100 100 07/04/18 16:30 07/04/18 17:35 07/04/18 17:40 Temperature Pulse Rate 65 66 65 Respiratory Rate 65 H 66 H 70 H Blood Pressure 112/66 119/75 114/61 Pulse Oximetry 100 100 100 07/04/18 17:45 07/04/18 17:50 07/04/18 17:55 Temperature Pulse Rate 65 62 62 Respiratory Rate 70 H 45 H 73 H Blood Pressure 116/59 L 110/57 L 110/62 Pulse Oximetry 100 100 100 07/04/18 18:00 07/04/18 18:05 07/04/18 18:10 Temperature Pulse Rate 62 66 67 Respiratory Rate 74 H 53 H 56 H Blood Pressure 109/61 126/60 117/86 Pulse Oximetry 100 100 100 07/04/18 18:15 07/04/18 18:20 07/04/18 18:25 Temperature Pulse Rate 65 65 66 Respiratory Rate 63 H 65 H 55 H Blood Pressure 127/63 118/59 L 113/56 L Pulse Oximetry 100 100 100 07/04/18 18:30 07/04/18 18:35 07/04/18 18:40 Temperature Pulse Rate 66 65 64 Respiratory Rate 35 H 68 H 58 H Blood Pressure 127/69 122/63 116/61 Pulse Oximetry 100 100 100 07/04/18 18:45 07/04/18 18:50 07/04/18 18:55 Temperature Pulse Rate 64 70 65 Respiratory Rate 63 H 82 H 74 H Blood Pressure 121/61 120/78 123/69 Pulse Oximetry 100 100 100 07/04/18 19:00 07/04/18 19:05 07/04/18 19:10 Temperature Pulse Rate 67 64 66 Respiratory Rate 77 H 73 H 67 H Blood Pressure 125/60 118/61 123/68 Pulse Oximetry 100 100 100 07/04/18 19:15 07/04/18 19:20 07/04/18 19:25 Temperature Pulse Rate 64 64 66 Respiratory Rate 70 H 58 H 70 H Blood Pressure 118/66 117/65 123/70 Pulse Oximetry 100 100 100 07/04/18 19:30 07/04/18 19:35 07/04/18 19:40 Temperature Pulse Rate 66 67 67 Respiratory Rate 65 H 44 H 61 H Blood Pressure 112/62 122/66 123/68 Pulse Oximetry 100 100 100 07/04/18 19:45 07/04/18 19:50 07/04/18 19:55 Temperature Pulse Rate 67 66 67 Respiratory Rate 72 H 59 H 55 H Blood Pressure 119/70 124/60 128/65 Pulse Oximetry 100 100 100 07/04/18 20:00 07/04/18 20:06 07/04/18 20:10 Temperature 99.3 F Pulse Rate 63 81 74 Respiratory Rate 66 H 49 H 46 H Blood Pressure 131/68 167/74 H 184/75 H Pulse Oximetry 100 100 100 07/04/18 20:16 07/04/18 20:57 07/04/18 21:00 Temperature Pulse Rate 66 63 64 Respiratory Rate 19 14 22 Blood Pressure 187/111 H 131/67 122/63 Pulse Oximetry 100 100 100 07/04/18 21:36 07/04/18 22:00 07/04/18 23:00 Temperature Pulse Rate 51 L 51 L 57 L Respiratory Rate 14 14 14 Blood Pressure 135/75 Pulse Oximetry 100 100 100 07/04/18 23:03 07/05/18 00:00 07/05/18 00:16 Temperature 98.8 F Pulse Rate 64 56 L Respiratory Rate 19 14 14 Blood Pressure 147/84 H 143/73 H Pulse Oximetry 100 100 100 07/05/18 01:00 07/05/18 02:00 07/05/18 03:00 Temperature Pulse Rate 55 L 51 L 53 L Respiratory Rate 14 14 12 Blood Pressure 130/63 114/60 122/60 Pulse Oximetry 99 99 99 07/05/18 04:00 07/05/18 05:00 07/05/18 05:14 Temperature Pulse Rate 69 58 L 57 L Respiratory Rate 15 14 14 Blood Pressure 114/71 Pulse Oximetry 100 100 07/05/18 06:00 07/05/18 07:00 07/05/18 08:00 Temperature 98.6 F Pulse Rate 60 54 L 53 L Respiratory Rate 14 14 14 Blood Pressure 112/65 119/67 125/69 Pulse Oximetry 100 100 100 07/05/18 08:05 07/05/18 09:00 07/05/18 10:00 Temperature 98.8 F Pulse Rate 57 L 59 L Respiratory Rate 14 12 14 Blood Pressure 137/73 132/74 Pulse Oximetry 100 100 100 07/05/18 11:23 Temperature Pulse Rate Respiratory Rate 14 Blood Pressure Pulse Oximetry 100 Intake & Output 07/04/18 07/05/18 07/05/18 18:59 06:59 18:59 Intake Total 2364.0 / 2364.0 1592.0 / 1592.0 500 / 500 Output Total 1300 / 1300 1350 / 1350 Balance 1064.0 / 1064.0 242.0 / 242.0 500 / 500 Weight 95.7 kg Intake: IV 1615.0 / 1615.0 915.0 / 915.0 500 / 500 NS Inj 1,000 ML @ 125 mls/hr IV 1000 / 1000 .CONT .Q8H ESTELA Rx#:[id number] Zyvox 600 mg Premix 300 ML @ 300 / 300 300 / 300 300 mls/hr IV.SIG Q12H ESTELA Rx#: [id number] Zosyn 4.5 GM Premix 4.5 gm In 200 / 200 200 / 200 100 / 100 100 ml @ 200 mls/hr IV.SIG Q6H ESTELA Rx#:[id number] KCl 20 mEq Premix Inj 20 meq In 100 / 100 100 / 100 100 ml @ 50 mls/hr IV.SIG Q2H PRN Rx#:[id number] Depacon Inj 750 MG In NS Inj 215.0 / 215.0 215.0 / 215.0 100 ML @ 105 mls/hr IV.SIG Q8HR ESTELA Rx#:[id number] Keppra 1000 mg/100 mL Premix 100 / 100 100 / 100 100 / 100 100 ML @ 400 mls/hr IV.SIG Q12H ESTELA Rx#:[id number] Tube Feeding 549 / 549 477 / 477 Water Bolus Amount 200 / 200 200 / 200 Output: Urine Amount (Catheter) 1300 / 1300 1350 / 1350 Indwelling Urethral Catheter 1300 / 1300 1350 / 1350 Gastric Drainage 0 / 0 Oral Orogastric Tube 0 / 0 Other: Date of Last Bowel Movement 07/04/18 07/05/18 07/05/18 # Incontinent Bowel Movements 1 Result Diagrams: 07/05/18 05:13 07/05/18 05:13 Objective Remarks: Neuro: No sedation, orally intubated, Pupils 2 mm, reactive to light bilaterally. Localizes for 4 limbs. Does not open his eyes to stimulation. ENT: Neck supple. Orotracheal intubation. Chest/Pulm: Good air movement bilaterally while on SBT, no wheezing or crackles. Persistent clear watery secretions. CVS: S1-S2 Regular, no murmur, no jugular venous distention GI/abdomen: Soft, nontender, nondistended, bowel sounds active, no guarding. Extremities: Warm bilaterally, no edema. Well perfused. Assessment and Plan - Assessment and Plan Plan: 67-year-old male with: Status epilepticus ICH/SDH Acute respiratory failure on mechanical ventilation Left humerus fracture History of dementia History of stroke Hypertension Suspected sepsis Plan: Neuro: Continue to hold sedation. Keppra 1 g IV every 12 hourly. Valproate 500 mg IV every 8 hourly switched from p.o. dose at home. Follow valproate level. EVD discontinued 07/04 Cardiovascular: Hold antihypertensives. Maintenance IV fluid. Pulmonary: Continue mechanical ventilation, vent bundle, bronchodilators as needed. Continue spontaneous breathing trials. Legal guardian wishes to proceed with tracheostomy; will arrange. GI/liver: Tolerating tube feeds, follow prealbumin weekly. Consult GI for PEG tube placement Renal/: IV hydration, strict intake, monitor and replete electrolytes, follow BUN and creatinine. MSK: Orthopedics consult for left humerus fracture noted - nonoperative management. ID: Pancultures ordered on 07/03 and started on empiric antibiotic coverage with IV Zosyn in view of fevers and bandemia. Sputum culture 07/02: MRSA and Pseudomonas. Added IV Zyvox on 07/04 to cover for MRSA pneumonia, discontinue PIP CARMEN, start cefepime. Endocrine: SSI as needed for glycemic control if needed Heme: Follow CBC. Received K Centra to reverse Eliquis in the ER. Prophylaxis: Pepcid/SCDs. Palliative care following. Patient is DNR status Overall impression: Patient remains critically ill, requiring intubation and mechanical ventilation for treatment of the severe neurologic encephalopathy. Seizure activity appears to be controlled. Unable to wean from ventilator but will continue spontaneous trials daily. Will need tracheostomy and PEG tube if aggressive care continues. Palliative care discussed with patient's POA/legal guardian on 07/04; proceed with tracheostomy and PEG tube placement. Critical care time 38 minutes aside from procedures.
[2018-07-05] MEDS: Naphazoline 0.012% Opth Drops 30 ML Bottle EACH EYE SCH ×3 (15:52→23:26)
--- NOTE | 2018-07-05 18:38 | MB ---
cc: Sidra Elmore MD DATE: 07/05/2018 TYPE OF CONSULTATION: GI consult. REASON FOR CONSULTATION: Dysphagia for PEG tube placement. HISTORY OF PRESENT ILLNESS: This is a 67-year-old male patient with significant past medical history for dementia, hypertension, seizure disorder, who was brought to the hospital 10 days ago after multiple seizures at his home. The patient when he arrived, was intubated immediately by ER physician and was placed on mechanical ventilation and sedation. He had a CT scan in the emergency room that showed left frontal intraparenchymal bleeding with subdural hemorrhage. Also, the patient had humerus neck fracture on x-ray. The patient was placed under critical care management during that period of time. Over the last 10 days, trying to wean the patient from the intubation failed. GI is consulted for PEG tube placement for prolonged nutrition. REVIEW OF SYSTEMS: Unobtainable. PSYCHOSOCIAL HISTORY: He lives at home. FAMILY HISTORY: Not obtainable at this time. MEDICATIONS: Currently on: 1. Propofol. 2. Albuterol. 3. Amlodipine. 4. Cefazolin. 5. Cefepime. 6. Famotidine. 7. Magnesium oxide. 8. Metoprolol. 9. Morphine p.r.n. 10. Piperacillin-tazobactam. 11. Vancomycin. ALLERGIES: STRAWBERRY. PHYSICAL EXAMINATION: GENERAL: At the current time, patient is still intubated, mechanically ventilated and sedated. HEAD AND NECK: Atraumatic. Equal pupils and reactive to light. LUNGS: Clear to auscultation bilaterally. No crackles or wheezes. CARDIOVASCULAR: Regular rate and rhythm. ABDOMEN: Soft, no tenderness, no hepatosplenomegaly. No palpable masses. EXTREMITIES: Normal pulses. NEUROLOGIC: On sedation at the current time. ASSESSMENT AND PLAN: A 67-year-old male patient who is requiring prolonged ventilation and sedation, consulted for PEG tube placement. The procedure was explained to the family and they agreed to proceed with that. The patient will be scheduled for Saturday. We will keep him n.p.o. after midnight Saturday. He is currently on antibiotic and no need to stop that. Will stop any anticoagulation for the time being. Further recommendations to follow. MD FABIANO Turk/wan , 02:37 PM , 02:45 PM
[2018-07-06] MEDS: Oral Hygiene Kit OROPHARYNG SCH ×4 (00:26→16:13)
[2018-07-06] MEDS: Naphazoline 0.012% Opth Drops 30 ML Bottle EACH EYE SCH ×5 (04:26→19:29)
[2018-07-06 05:30] LABS: Alanine Aminotransferase 26 U/L (12-78); Albumin 1.7 g/dL (3.4-5.0); Alkaline Phosphatase 94 U/L (45-117); Anion Gap 5 meq/L (5-15); Aspartate Aminotransferase 24 U/L (15-37); Blood Urea Nitrogen 9 mg/dL (7-18); Calcium 7.4 mg/dL (8.5-10.1); Carbon Dioxide 29.1 meq/L (21.0-32.0); Chloride 106 meq/L (98-107); Glomerular Filtration Rate Greater Than 89 mL/min (>89); Glucose,Random 98 mg/dL (74-106); Potassium 3.6 meq/L (3.5-5.1); Sodium 140 meq/L (136-145); Total Protein 5.2 g/dL (6.4-8.2)
[2018-07-06] MEDS: Valproate Inj 750 MG in Sodium Chlor 0.9% Inj 100 ML IV.SIG SCH ×3 (05:38→21:54)
[2018-07-06] MEDS: Chlorhexidine 0.12% Oral Kit 15 ML UDC OROPHARYNG SCH ×2 (07:45→20:18)
[2018-07-06] MEDS: levETIRAcetam 1000mg/100mL Inj 100 ML IV.SIG SCH ×2 (07:45→20:18)
[2018-07-06] MEDS: Sod Chloride 0.9% Inj 1,000 ML IV.CONT SCH ×2 (07:46→19:28)
[2018-07-06] MEDS ORDERED: fentaNYL Citrate Inj 100 MCG/2 ML Ampul IV.PUSH ONE (08:33)
--- NOTE | 2018-07-06 08:40 | P.PNCC ---
Subjective Subjective Remarks/Hospital Course: 06/24: 67-year-old male with a medical history significant for dementia, seizure disorder, previous stroke, hypertension [facility] this [facility]. On arrival in the ER he appeared to be seizing and was intubated by ER physician and placed on mechanical ventilation and sedated with propofol. Head CT done in the ER revealed left frontal intraparenchymal bleed with subdural hemorrhage. Patient was also noted to have a left humerus neck fracture on x-ray. [facility] Patient has been on Eliquis at home and he received K Centra following arrival to the ER for reversal. 06/25: Remains sedated, orally intubated on mechanical ventilation. Head CT done today with new area of small subdural hemorrhage and increase in size of intraventricular hemorrhage, intraparenchymal hemorrhage same size. 06/26: Remains sedated, orally intubated on mechanical ventilation. Repeat head CT shows slight worsening of intra-cerebral hemorrhage yesterday. 06/27: Remains sedated, orally intubated on mechanical ventilation. 06/28: Endotracheal tube dislodged, replaced this morning. Oxygen saturation remained at 100% throughout. Withdraws four limbs and localizes all to pain. No obvious seizure activity. Not alert enough to extubate. 06/29: More active today. Will start spontaneous breathing trials. He EVD elevated to 5 cm, observe neurologic function closely. 06/30: Tolerating elevated EVD. Continue spontaneous breathing trials. Replace potassium today. 07/01: EVD drainage remains light yellow. Patient remains to somnolent to control airway if we extubate. She is very comfortable on spontaneous breathing trials with good respiratory mechanics and strength. 07/02: Remains encephalopathic, orally intubated on mechanical ventilation. Ventriculostomy remains in place. 07/03: Remains encephalopathic, orally intubated on mechanical ventilation. Ventriculostomy clamped today. 07/04: Remains encephalopathic, orally intubated on mechanical ventilation. Febrile this morning. Ventriculostomy discontinued today. Sputum growing MRSA and Pseudomonas from 07/02 cultures. On IV Zosyn. Added IV Zyvox on 07/04. Guardian wishes to proceed with tracheostomy and PEG tube for palliative care. Consulted GI for PEG tube placement. 12/01: Will convert to cefepime until sensitivities back. No change in neurologic function. Remains ventilator dependent. 07/06: Family requests and guardian concurs that patient should have a tracheostomy and PEG tube insertion. These interventions have been discussed in detail with the patient's guardian. No improvement in neurologic function. Objective Vital Signs / I&O: Vital Signs 07/05/18 09:00 07/05/18 10:00 07/05/18 11:00 Temperature 98.8 F Pulse Rate 57 L 59 L 58 L Respiratory Rate 12 14 14 Blood Pressure 137/73 132/74 131/68 Pulse Oximetry 100 100 100 07/05/18 11:23 07/05/18 12:00 07/05/18 13:00 Temperature 98.6 F Pulse Rate 58 L 64 Respiratory Rate 14 14 14 Blood Pressure 132/70 129/73 Pulse Oximetry 100 100 100 07/05/18 14:00 07/05/18 15:00 07/05/18 15:22 Temperature Pulse Rate 63 64 Respiratory Rate 14 28 H 14 Blood Pressure 133/74 140/67 Pulse Oximetry 100 100 100 07/05/18 16:00 07/05/18 17:00 07/05/18 18:00 Temperature 98.5 F Pulse Rate 71 64 61 Respiratory Rate 21 14 20 Blood Pressure 146/76 H 127/69 127/66 Pulse Oximetry 100 100 100 07/05/18 19:00 07/05/18 20:00 07/05/18 21:00 Temperature 98.7 F Pulse Rate 64 61 63 Respiratory Rate 14 14 14 Blood Pressure 127/72 123/71 127/78 Pulse Oximetry 100 100 100 07/05/18 21:41 07/05/18 22:00 07/05/18 23:00 Temperature Pulse Rate 63 63 Respiratory Rate 14 13 14 Blood Pressure 132/77 138/77 Pulse Oximetry 100 100 100 07/06/18 00:00 07/06/18 00:30 07/06/18 01:00 Temperature 98.7 F Pulse Rate 63 60 Respiratory Rate 14 14 14 Blood Pressure 139/77 118/67 Pulse Oximetry 100 100 100 07/06/18 02:00 07/06/18 02:23 07/06/18 03:00 Temperature Pulse Rate 59 L 60 68 Respiratory Rate 11 L 9 L 14 Blood Pressure 137/72 136/80 Pulse Oximetry 100 100 100 07/06/18 04:00 07/06/18 04:44 07/06/18 05:00 Temperature 98.9 F Pulse Rate 63 59 L Respiratory Rate 14 14 14 Blood Pressure 132/75 112/67 Pulse Oximetry 100 100 100 07/06/18 06:00 07/06/18 06:10 07/06/18 08:05 Temperature Pulse Rate 67 135 H Respiratory Rate 26 H 29 H 14 Blood Pressure 150/79 H Pulse Oximetry 100 100 100 Intake & Output 07/05/18 07/06/18 07/06/18 18:59 06:59 18:59 Intake Total 2047.5 / 2047.5 1999.0 / 1998.0 Output Total 2600 / 2600 1900 / 1900 Balance -552.5 / -552.5 99.0 / 99.0 Weight 95.7 kg Intake: IV 1207.5 / 1207.5 715.0 / 715.0 NS Inj 1,000 ML @ 30 mls/hr IV. 500 / 500 CONT .Q24H ESTELA Rx#:[id number] Maxipime Inj 2,000 MG In NS Inj 100 / 100 100 / 100 100 ML @ 200 mls/hr IV.SIG Q8H ESTELA Rx#:[id number] Zyvox 600 mg Premix 300 ML @ 300 / 300 300 / 300 300 mls/hr IV.SIG Q12H ESTELA Rx#: [id number] Zosyn 4.5 GM Premix 4.5 gm In 100 / 100 100 ml @ 200 mls/hr IV.SIG Q6H ESTELA Rx#:[id number] Depacon Inj 750 MG In NS Inj 107.5 / 107.5 215.0 / 215.0 100 ML @ 105 mls/hr IV.SIG Q8HR ESTELA Rx#:[id number] Keppra 1000 mg/100 mL Premix 100 / 100 100 / 100 100 ML @ 400 mls/hr IV.SIG Q12H ESTELA Rx#:[id number] Tube Feeding 600 / 600 1084 / 1084 Tube Irrigant 240 / 240 Water Bolus Amount 200 / 200 Output: Urine Amount (Catheter) 2600 / 2600 1900 / 1900 Indwelling Urethral Catheter 2600 / 2600 1900 / 1900 Gastric Drainage 0 / 0 Oral Orogastric Tube 0 / 0 Other: Date of Last Bowel Movement 07/05/18 07/05/18 Result Diagrams: 07/05/18 05:13 07/06/18 04:52 Objective Remarks: Neuro: No sedation, orally intubated, PERRL, reactive to light bilaterally. Localizes for 4 limbs. Does not open his eyes to stimulation. ENT: Neck supple. Orotracheal intubation. Chest/Pulm: Good air movement bilaterally while on SBT, no wheezing or crackles. Week during trials. CVS: S1-S2 Regular, no murmur, no JVD GI/abdomen: Soft, nontender, nondistended, bowel sounds present, no guarding. Extremities: Warm bilaterally, no edema. Remains well perfused. Assessment and Plan - Assessment and Plan Plan: 67-year-old male with: Status epilepticus ICH/SDH Acute respiratory failure on mechanical ventilation Left humerus fracture History of dementia History of stroke Hypertension Suspected sepsis Plan: Neuro: Continue to hold sedation. Keppra 1 g IV every 12 hourly. Valproate 500 mg IV every 8 hourly switched from p.o. dose at home. Follow valproate level. EVD discontinued 07/04 Cardiovascular: Hold antihypertensives. Maintenance IV fluid. Pulmonary: Continue mechanical ventilation, vent bundle, bronchodilators as needed. Continue spontaneous breathing trials. Legal guardian wishes to proceed with tracheostomy; will arrange. GI/liver: Tolerating tube feeds, follow prealbumin weekly. Consult GI for PEG tube placement Renal/: IV hydration, strict intake, monitor and replete electrolytes, follow BUN and creatinine. MSK: Orthopedics consult for left humerus fracture noted - nonoperative management. ID: Pancultures ordered on 07/03 and started on empiric antibiotic coverage with IV Zosyn in view of fevers and bandemia. Sputum culture 07/02: MRSA and Pseudomonas. Added IV Zyvox on 07/04 to cover for MRSA pneumonia, discontinue PIP CARMEN, start cefepime. Endocrine: SSI as needed for glycemic control if needed Heme: Follow CBC. Received K Centra to reverse Eliquis in the ER. Prophylaxis: Pepcid/SCDs. Palliative care following. Patient is DNR status Overall impression: Patient remains critically ill, requiring intubation and mechanical ventilation for treatment of the severe neurologic encephalopathy. Seizure activity appears to be controlled. Unable to wean from ventilator but will continue spontaneous trials daily. Will need tracheostomy and PEG tube if aggressive care continues. Palliative care discussed with patient's POA/legal guardian on 07/04; proceed with tracheostomy and PEG tube placement. Critical care time 38 minutes aside from procedures.
[2018-07-06] MEDS ORDERED: Midazolam Inj 5 MG/ML 1 ML Vial ONE (09:26)
[2018-07-06] MEDS: Midazolam Inj 5 MG/ML 5 ML Vial IV.PUSH ONE ×2 (10:00→11:22)
--- NOTE | 2018-07-06 10:25 | P.PCN ---
Date of procedure: 07/06/18 Procedure: Diagnosis: Chronic hypoxemic respiratory failure Procedure: Therapeutic bronchoscopy Narrative: Timeout performed, patient suitably identified. Patient on mechanical ventilation via orotracheal intubation. Usual ICU monitoring devices in place. Versed 5 mg, fentanyl 50 mg x2, rocuronium 50 mg all injected intravenously. Through a sealed side port and an elbow placed in the ventilator circuit the bronchoscope was delivered. The main trachea and left and right mainstem bronchi were clean without irritation or inflammation. The left bronchial segments were normal in anatomic location and aside from some light yellow and pale secretions were relatively clean. The right side revealed normal branching pattern and minor amounts of secretions were aspirated. The endotracheal tube along with the bronchoscope were brought back in tandem to the level of the cricoid cartilage such that the visualization provided by the bronchoscope could be used for a percutaneous tracheostomy dictated under separate note by different team. Following insertion of the tracheostomy tube the bronchoscope was delivered down this new portal and the tracheostomy tube was confirmed to be in good position in the main trachea well above the jeanine. Small amount of blood was suctioned free and the inner cannula was then placed. Oxygenation and ventilation was restored via the new tracheostomy tube and position confirmed again with end-tidal CO2 detection and return of ventilator volumes. Oxygen saturation was maintained at greater than 95% throughout the procedure.
[2018-07-06] MEDS ORDERED: Midazolam Inj 5 MG/ML 1 ML Vial IV.PUSH ONE (11:00)
[2018-07-06] MEDS: Famotidine 20 MG Tablet NG/OG SCH ×2 (11:19→20:18)
[2018-07-06] MEDS: Metoprolol Tartrate 25 MG Tablet PO SCH ×2 (11:19→20:18)
[2018-07-06] MEDS: amLODIPine 10 MG Tablet PO SCH (11:19)
--- NOTE | 2018-07-06 11:42 | XR ---
EXAM DATE: 07/06/2018 11:35 AM EST AGE/SEX: 67 years / Male INDICATIONS: Evaluate trach and NG tube placement. CLINICAL DATA: This is the patient's subsequent encounter. Patient reports that signs and symptoms h ave been present for 1 day and indicates a pain score of Nonresponsive. MEDICAL/SURGICAL HISTORY: Stroke. Hypertension. Seizures. None. COMPARISON: [facility] – [place], [place]ST 1V SINGLE AP, 07/02/2018. . FINDINGS: The tracheostomy tube appears to be in good position. There is an NG tube in the stomach. There is mi ld atelectasis in the right lung base. Otherwise, the lungs are grossly clear. There are no pleural e ffusions. No evidence of pneumothorax. Heart size within normal limits. No significant changes compar ed to the prior study. CONCLUSION: 1. The tracheostomy tube and NG tube are in good position. 2. No evidence of pneumothorax. 3. Mild atelectasis right lung base. Electronically signed by: Ross Barnett MD 07/06/2018 11:41 AM EST
[2018-07-07] MEDS: Naphazoline 0.012% Opth Drops 30 ML Bottle EACH EYE SCH ×7 (00:34→22:37)
[2018-07-07] MEDS: Oral Hygiene Kit OROPHARYNG SCH ×4 (00:34→16:16)
[2018-07-07 04:32] LABS: Baso % (Auto) 0.4 % (0.0-2.0); Eos # (Auto) 0.1 th/mm3 (0.0-0.4); Eos % (Auto) 0.9 % (0.0-4.0); Hematocrit 30.1 % (39.0-51.0); Hemoglobin 10.2 gm/dL (13.0-17.0); Lymph # (Auto) 1.3 th/mm3 (1.0-4.8); Lymph % (Auto) 12.2 % (9.0-44.0); Mean Corpuscular Hemoglobin 31.6 pg (27.0-34.0); Mean Corpuscular Volume 92.8 fL (80.0-100.0); Mean Platelet Volume 6.5 fL (7.0-11.0); Mono % (Auto) 18.3 % (0.0-8.0); Neut # (Auto) 7.3 th/mm3 (1.8-7.7); Neut % (Auto) 68.2 % (16.0-70.0); Platelet Count 194 th/mm3 (150-450); Red Blood Count 3.24 mil/mm3 (4.50-5.90); Red Cell Distribution Width 12.3 % (11.6-17.2); White Blood Count 10.7 th/mm3 (4.0-11.0)
[2018-07-07 04:39] LABS: Albumin 1.9 g/dL (3.4-5.0); Anion Gap 6 meq/L (5-15); Aspartate Aminotransferase 20 U/L (15-37); Blood Urea Nitrogen 8 mg/dL (7-18); Calcium 7.7 mg/dL (8.5-10.1); Carbon Dioxide 30.2 meq/L (21.0-32.0); Chloride 106 meq/L (98-107); Glomerular Filtration Rate Greater Than 89 mL/min (>89); Glucose,Random 82 mg/dL (74-106); Potassium 3.3 meq/L (3.5-5.1); Sodium 142 meq/L (136-145)
[2018-07-07 04:40] LABS: Alanine Aminotransferase 24 U/L (12-78)
[2018-07-07 04:42] LABS: Alkaline Phosphatase 82 U/L (45-117); Total Protein 5.3 g/dL (6.4-8.2)
[2018-07-07] MEDS: Valproate Inj 750 MG in Sodium Chlor 0.9% Inj 100 ML IV.SIG SCH ×3 (06:06→22:36)
[2018-07-07 06:51] LABS: Eosinophils 2 % (0-4); Lymphocytes 6 % (9-44); Metamyelocytes 1 % (0-1); Monocytes 12 % (0-8); Myelocytes 3 % (0-0); Platelet Estimate Normal (Normal); Platelet Morphology Normal (Normal)
--- NOTE | 2018-07-07 08:03 | P.PNNEU ---
Subjective Subjective Comments: no acute events, no sz Active Medications: Active Medications Acetaminophen (Tylenol) 650 mg PO Q6H PRN PRN Reason: PAIN 1-10 AND/OR FEVER >101F Last Admin: 07/04/18 07:55 Dose: 650 mg Albuterol (Duoneb Neb (Prn)) 1 ampul NEB Q4HR NEB PRN PRN Reason: SHORTNESS OF BREATH Last Admin: 07/04/18 21:36 Dose: 1 ampul Amlodipine Besylate (Norvasc) 10 mg PO DAILY [facility] Last Admin: 07/06/18 11:19 Dose: 10 mg Chlorhexidine Gluconate (Peridex 0.12% Oral Kit) 15 ml OROPHARYNG BID@0800, 2000 [facility] Last Admin: 07/06/18 20:18 Dose: 15 ml Chlorhexidine Gluconate (Chlorhexidine 2% Cloth) 3 pack TOPICAL SCREW DOWN [facility] Stop: 07/08/18 07:44 Famotidine (Pepcid) 20 mg NG/OG BID [facility] Last Admin: 07/06/18 20:18 Dose: 20 mg Hydralazine HCl (Apresoline) 50 mg PO TID [facility] Last Admin: 07/02/18 13:35 Dose: 50 mg Hyoscyamine (Levsin) 0.25 mg PO Q4H PRN PRN Reason: Excessive secretions Last Admin: 07/06/18 20:18 Dose: 0.25 mg Propofol (Diprivan 1000 Mg/100 Ml Inj) 1,000 mg in 100 mls @ 2.585 mls/hr IV.CONT TITRATE PRN; Protocol PRN Reason: Per Protocol Last Titration: 06/30/18 07:00 Dose: Infused Levetiracetam (Keppra 1000 Mg/100 Ml Premix) 100 mls @ 400 mls/hr IV.SIG Q12H [facility] Last Infusion: 07/06/18 20:33 Dose: Infused Valproate Sodium 750 mg/ (Sodium Chloride) 107.5 mls @ 105 mls/hr IV.SIG Q8HR [facility] Last Admin: 07/07/18 06:06 Dose: 105 mls/hr Nicardipine HCl 25 mg/ Sodium (Chloride) 260 mls @ 0 mls/hr IV.CONT TITRATE PRN ; Protocol PRN Reason: BLOOD PRESSURE MANAGEMENT Last Infusion: 06/30/18 07:00 Dose: Infused Magnesium Sulfate 4 gm/ Sodium (Chloride) 100 mls @ 50 mls/hr IV.SIG UNSCH PRN PRN Reason: For Magnesium 0.9 - 1.1 mg/dL Magnesium Sulfate 2 gm/ Sodium (Chloride) 100 mls @ 50 mls/hr IV.SIG UNSCH PRN PRN Reason: For Magnesium 1.2 - 1.6 mg/dL Potassium Chloride (Kcl 40 Meq Premix Inj) 40 meq in 100 mls @ 25 mls/hr IV.SIG Q2H PRN PRN Reason: For Potassium 2.8 - 3.2 mEq/L Potassium Chloride (Kcl 20 Meq Premix Inj) 20 meq in 100 mls @ 50 mls/hr IV.SIG Q2H PRN PRN Reason: For Potassium 3.3 - 3.5 mEq/L Last Infusion: 07/03/18 17:35 Dose: Infused Potassium Chloride (Kcl 40 Meq Premix Inj) 40 meq in 100 mls @ 25 mls/hr IV.SIG UNSCH PRN PRN Reason: For Potassium 3.3 - 3.5 mEq/L Potassium Chloride (Kcl 20 Meq Premix Inj) 20 meq in 100 mls @ 50 mls/hr IV.SIG Q2H PRN PRN Reason: For Potassium 2.8 - 3.2 mEq/L Last Infusion: 07/05/18 00:19 Dose: Infused Potassium Phosphate 30 mmol/ (Sodium Chloride) 260 mls @ 42 mls/hr IV.SIG UNSCH PRN PRN Reason: SEE LABEL COMMENTS Sodium Phosphate 30 mmol/ (Sodium Chloride) 260 mls @ 42 mls/hr IV.SIG UNSCH PRN PRN Reason: For Phosphorus < 2.5 mg/dL Sodium Chloride (Ns Inj) 500 mls @ 0 mls/hr IV.CONT BOLUS [facility] Last Infusion: 07/02/18 19:01 Dose: Infused Vancomycin HCl 1,000 mg/ (Sodium Chloride) 250 mls @ 250 mls/hr IV.SIG SCREW DOWN [facility] Stop: 07/08/18 07:59 Cefazolin Sodium/Dextrose (Ancef 2 Gm Premix Inj) 2 gm in 50 mls @ 100 mls/hr IV.SIG SCREW DOWN [facility] Stop: 07/08/18 07:59 Sodium Chloride (Ns Inj) 1,000 mls @ 30 mls/hr IV.CONT .Q24H [facility] Last Admin: 07/06/18 19:28 Dose: 30 mls/hr Linezolid (Zyvox 600 Mg Premix) 300 mls @ 300 mls/hr IV.SIG Q12H [facility] Last Infusion: 07/06/18 21:17 Dose: Infused Cefepime HCl 2,000 mg/ Sodium (Chloride) 100 mls @ 200 mls/hr IV.SIG Q8H [facility] Last Infusion: 07/07/18 01:04 Dose: Infused Magnesium Oxide (Mag-Ox) 800 mg PO UNSCH PRN PRN Reason: For Magnesium 1.2 - 1.6 mg/dL Metoprolol Tartrate (Lopressor) 25 mg PO BID [facility] Last Admin: 07/06/18 20:18 Dose: Not Given Miscellaneous Medication () 1 each OROPHARYNG 0000,0400,1200,1600 [facility] Last Admin: 07/07/18 04:27 Dose: 1 each Morphine Sulfate (Morphine Inj) 4 mg IV.PUSH Q4H PRN PRN Reason: PAIN SCALE 6 TO 10 IF NOT RUI Last Admin: 07/02/18 11:04 Dose: 4 mg Morphine Sulfate (Morphine Inj) 2 mg IV.PUSH Q4H PRN PRN Reason: PAIN 1 TO 5 IF NOT RUI PO Last Admin: 07/04/18 20:50 Dose: 2 mg Naphazoline HCl (Clear Eyes Redness Relief 0.012% Opth Drops) 1 drop EACH EYE Q4H [facility] Last Admin: 07/07/18 04:27 Dose: 1 drop Potassium Bicarb/Potassium Chloride (K-Lyte Cl Eff) 50 meq PO UNSCH PRN PRN Reason: For Potassium 3.3 - 3.5 mEq/L Potassium Phosphate (K-Phos Original) 2,000 mg PO Q4H PRN PRN Reason: Phosphorus Less Than 2.5 mg/dL Potassium Phosphate (K-Phos Original) 2,000 mg PO UNSCH PRN PRN Reason: SEE LABEL COMMENTS Povidone Iodine (Betadine 5% Antisepsis Kit) 1 applicatio EACH NARE SCREW DOWN [facility] Stop: 07/08/18 07:44 Sodium Chloride (Ns Flush) 2 ml IV.FLUSH PRN PRN PRN Reason: FLUSH AFTER USING IV ACCESS Last Admin: 07/03/18 08:08 Dose: 2 ml Thiamine HCl (Vitamin B1) 100 mg PO DAILY [facility] Last Admin: 07/06/18 11:19 Dose: 100 mg Allergies/Adverse Reactions: Allergies Allergy/AdvReac Type Severity Reaction Status Date / Time strawberry Allergy Unknown Swelling Verified 06/24/18 08:08 Review of Systems unobtainable due to endotracheal tube, unobtainable due to mental status Physical Exam Vital signs: Vital Signs 07/06/18 08:00 07/06/18 08:05 07/06/18 10:39 Temperature 98.5 F Pulse Rate 62 Respiratory Rate 22 14 Blood Pressure 159/83 H Pulse Oximetry 100 100 100 07/06/18 10:48 07/06/18 10:50 07/06/18 10:52 Temperature Pulse Rate 69 67 66 Respiratory Rate 27 H 20 14 Blood Pressure 131/72 136/78 132/76 Pulse Oximetry 99 98 98 07/06/18 10:54 07/06/18 10:56 07/06/18 10:58 Temperature Pulse Rate 66 65 65 Respiratory Rate 19 14 14 Blood Pressure 138/80 134/77 132/75 Pulse Oximetry 98 98 98 07/06/18 11:00 07/06/18 11:02 07/06/18 11:04 Temperature Pulse Rate 65 64 63 Respiratory Rate 18 17 14 Blood Pressure 132/78 126/74 127/76 Pulse Oximetry 98 98 98 07/06/18 11:06 07/06/18 11:08 07/06/18 11:10 Temperature Pulse Rate 65 64 64 Respiratory Rate 14 86 H 106 H Blood Pressure 127/72 126/72 131/75 Pulse Oximetry 98 98 98 07/06/18 11:12 07/06/18 11:14 07/06/18 11:16 Temperature Pulse Rate 63 66 63 Respiratory Rate 84 H 71 H 64 H Blood Pressure 127/68 128/73 130/74 Pulse Oximetry 98 98 98 07/06/18 11:18 07/06/18 11:20 07/06/18 11:21 Temperature Pulse Rate 62 64 Respiratory Rate 48 H 58 H 14 Blood Pressure 130/74 126/72 Pulse Oximetry 98 98 98 07/06/18 11:22 07/06/18 11:24 07/06/18 11:26 Temperature Pulse Rate 63 63 65 Respiratory Rate 55 H 53 H 33 H Blood Pressure 129/74 128/74 141/80 H Pulse Oximetry 98 98 100 07/06/18 11:28 07/06/18 11:30 07/06/18 11:32 Temperature Pulse Rate 62 60 61 Respiratory Rate 25 H 30 H 28 H Blood Pressure 150/77 H 137/75 135/73 Pulse Oximetry 100 100 100 07/06/18 11:34 07/06/18 11:36 07/06/18 12:00 Temperature 98.5 F Pulse Rate 63 62 216 H Respiratory Rate 19 15 18 Blood Pressure 136/74 134/75 143/75 H Pulse Oximetry 100 99 100 07/06/18 13:00 07/06/18 14:00 07/06/18 15:00 Temperature Pulse Rate 67 69 66 Respiratory Rate 43 H 30 H 34 H Blood Pressure 150/82 H 158/85 H 150/82 H Pulse Oximetry 100 100 99 07/06/18 15:39 07/06/18 16:00 07/06/18 17:00 Temperature 99.0 F Pulse Rate 67 72 Respiratory Rate 16 15 22 Blood Pressure 141/76 H 151/97 H Pulse Oximetry 100 99 100 07/06/18 18:00 07/06/18 19:00 07/06/18 20:00 Temperature 98.6 F Pulse Rate 71 71 68 Respiratory Rate 12 14 14 Blood Pressure 157/81 H 142/78 H 150/81 H Pulse Oximetry 100 100 100 07/06/18 21:00 07/06/18 21:10 07/06/18 22:00 Temperature Pulse Rate 68 68 Respiratory Rate 14 Blood Pressure Pulse Oximetry 100 07/06/18 23:00 07/07/18 00:00 07/07/18 00:34 Temperature 98.7 F Pulse Rate 60 60 Respiratory Rate 14 14 Blood Pressure 128/75 Pulse Oximetry 98 100 07/07/18 01:00 07/07/18 02:00 07/07/18 03:00 Temperature 98.7 F Pulse Rate 59 L 65 62 Respiratory Rate 14 Blood Pressure 133/76 Pulse Oximetry 100 07/07/18 04:00 07/07/18 04:40 07/07/18 05:00 Temperature 97.7 F Pulse Rate 62 60 Respiratory Rate 14 14 Blood Pressure 138/70 Pulse Oximetry 100 100 07/07/18 06:00 Temperature Pulse Rate 72 Respiratory Rate Blood Pressure Pulse Oximetry Intake & Output 07/06/18 07/07/18 07/07/18 18:59 06:59 18:59 Intake Total 1304 / 1304 1879.0 / 1879.0 Output Total 3350 / 3350 5250 / 5250 Balance -2046 / -2046 -3371.0 / -3371.0 Intake: IV 800 / 800 1015.0 / 1015.0 NS Inj 1,000 ML @ 30 mls/hr IV. 200 / 200 300 / 300 CONT .Q24H [facility] Rx#:[id number] Maxipime Inj 2,000 MG In NS Inj 200 / 200 100 / 100 100 ML @ 200 mls/hr IV.SIG Q8H [facility] Rx#:[id number] Zyvox 600 mg Premix 300 ML @ 300 / 300 300 / 300 300 mls/hr IV.SIG Q12H [facility] Rx#: [id number] Depacon Inj 750 MG In NS Inj 215.0 / 215.0 100 ML @ 105 mls/hr IV.SIG Q8HR [facility] Rx#:[id number] Keppra 1000 mg/100 mL Premix 100 / 100 100 / 100 100 ML @ 400 mls/hr IV.SIG Q12H [facility] Rx#:[id number] Tube Feeding 500 / 500 500 / 500 Tube Irrigant 4 / 4 4 / 4 Water Bolus Amount 200 / 200 Other 160 / 160 Output: Urine 3350 / 3350 3350 / 3350 Urine Amount (Catheter) 1900 / 1900 Indwelling Urethral Catheter 1900 / 1900 Gastric Drainage 0 / 0 Oral Orogastric Tube 0 / 0 Other: Date of Last Bowel Movement 07/05/18 07/05/18 # Bowel Movements 1 # Incontinent Bowel Movements 1 Narrative: GENERAL: in NAD, SKIN: Warm and dry. HEAD: Atraumatic. Normocephalic. EYES: sluggishly reactive ENT: No nasal bleeding or discharge. NECK: tracheostomy CARDIOVASCULAR: Regular rate and rhythm. RESPIRATORY: tracheostomy, resting, not following, slightly wakes up, no gaze deviation not following, grimaces, ou appear equal and reactive but resists eye opening, withdraws flexion with rt ue, mild rt ue tremors, left hemiplegia - Constitutional no acute distress - Routine HEENT Exam Head: Present: normocephalic - Urinary Catheter Management Indwelling Urethral Catheter Cath placed during this visit: yes Reason for continuing: Acute urinary retention Insertion date: 06/24/18 Insertion time: 09:50 Objective Laboratory Results - last 24 hr 07/07/18 07/07/18 04:04 04:04 WBC 10.7 RBC 3.24 L Hgb 10.2 L Hct 30.1 L MCV 92.8 MCH 31.6 MCHC 34.0 RDW 12.3 Plt Count 194 D MPV 6.5 L Prelim Diff (Auto) Slide review pending Neut % (Auto) 68.2 Lymph % (Auto) 12.2 [place] % (Auto) 18.3 H Eos % (Auto) 0.9 Baso % (Auto) 0.4 Neut # (Auto) 7.3 Lymph # (Auto) 1.3 [place] # (Auto) 2.0 H Eos # (Auto) 0.1 Baso # (Auto) 0.0 WBC Differential Manual diff final Seg Neuts % (Manual) 59 Band Neuts % (Manual) 17 H Lymphocytes % (Manual) 6 L Monocytes % (Manual) 12 H Eosinophils % (Manual) 2 Metamyelocytes % (Man) 1 Myelocytes % (Man) 3 H Abs Neuts (Manual) 8.6 H Differential Comment . Platelet Estimate Normal Platelet Morphology Normal Sodium 142 Potassium 3.3 L Chloride 106 Carbon Dioxide 30.2 Anion Gap 6 BUN 8 Creatinine 0.47 L Estimated GFR Greater than 89 Random Glucose 82 Calcium 7.7 L Total Bilirubin 0.3 AST 20 ALT 24 Alkaline Phosphatase 82 Total Protein 5.3 L Albumin 1.9 L Microbiology 07/02/18 20:55 Aerobic Blood Culture - Preliminary Blood - Peripheral No growth in 4 days Anaerobic Blood Culture - Preliminary No growth in 4 days 07/02/18 21:01 Aerobic Blood Culture - Preliminary Blood - Peripheral No growth in 4 days Anaerobic Blood Culture - Preliminary No growth in 4 days Review/Management - Diagnosis (1) Encephalomalacia Code(s): G93.89 - Other specified disorders of brain Status: Acute Current Visit: Yes (2) Dementia Code(s): F03.90 - Unspecified dementia without behavioral disturbance Status: Acute Current Visit: Yes (3) Intractable seizure disorder Code(s): G40.919 - Epilepsy, unspecified, intractable, without status epilepticus Status: Acute Current Visit: Yes (4) ICH (intracerebral hemorrhage) Code(s): I61.9 - Nontraumatic intracerebral hemorrhage, unspecified Status: Acute Current Visit: Yes - Review/Management Plan: Intracranial hemorrhage. 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 higher likelihood of full care probable LTC appreciate palliative care (4) ICH (intracerebral hemorrhage) Qualifiers: Intracerebral hemorrhage etiology: nontraumatic Cerebral hemorrhage location : multiple localized areas of cerebrum Laterality: right Qualified Code(s): I61.6 - Nontraumatic intracerebral hemorrhage, multiple localized
[2018-07-07] MEDS: levETIRAcetam 1000mg/100mL Inj 100 ML IV.SIG SCH ×2 (08:52→21:41)
[2018-07-07] MEDS: Sod Chloride 0.9% Inj 1,000 ML IV.CONT SCH (08:52)
[2018-07-07] MEDS: Chlorhexidine 0.12% Oral Kit 15 ML UDC OROPHARYNG SCH ×2 (08:53→21:42)
[2018-07-07] MEDS: Metoprolol Tartrate 25 MG Tablet PO SCH ×2 (08:53→21:43)
[2018-07-07] MEDS: Famotidine 20 MG Tablet NG/OG SCH ×2 (08:54→21:40)
[2018-07-07] MEDS: Potassium Chloride 25 MEQ Effervescent Tablet PO PRN (08:55)
--- NOTE | 2018-07-07 09:45 | P.PNNS ---
Subjective Interval history: trached, for PEG tube today. no changes to neuro examination. Physical Exam Vital signs: Vital Signs 07/06/18 10:39 07/06/18 10:48 07/06/18 10:50 Temperature Pulse Rate 69 67 Respiratory Rate 27 H 20 Blood Pressure 131/72 136/78 Pulse Oximetry 100 99 98 07/06/18 10:52 07/06/18 10:54 07/06/18 10:56 Temperature Pulse Rate 66 66 65 Respiratory Rate 14 19 14 Blood Pressure 132/76 138/80 134/77 Pulse Oximetry 98 98 98 07/06/18 10:58 07/06/18 11:00 07/06/18 11:02 Temperature Pulse Rate 65 65 64 Respiratory Rate 14 18 17 Blood Pressure 132/75 132/78 126/74 Pulse Oximetry 98 98 98 07/06/18 11:04 07/06/18 11:06 07/06/18 11:08 Temperature Pulse Rate 63 65 64 Respiratory Rate 14 14 86 H Blood Pressure 127/76 127/72 126/72 Pulse Oximetry 98 98 98 07/06/18 11:10 07/06/18 11:12 07/06/18 11:14 Temperature Pulse Rate 64 63 66 Respiratory Rate 106 H 84 H 71 H Blood Pressure 131/75 127/68 128/73 Pulse Oximetry 98 98 98 07/06/18 11:16 07/06/18 11:18 07/06/18 11:20 Temperature Pulse Rate 63 62 64 Respiratory Rate 64 H 48 H 58 H Blood Pressure 130/74 130/74 126/72 Pulse Oximetry 98 98 98 07/06/18 11:21 07/06/18 11:22 07/06/18 11:24 Temperature Pulse Rate 63 63 Respiratory Rate 14 55 H 53 H Blood Pressure 129/74 128/74 Pulse Oximetry 98 98 98 07/06/18 11:26 07/06/18 11:28 07/06/18 11:30 Temperature Pulse Rate 65 62 60 Respiratory Rate 33 H 25 H 30 H Blood Pressure 141/80 H 150/77 H 137/75 Pulse Oximetry 100 100 100 07/06/18 11:32 07/06/18 11:34 07/06/18 11:36 Temperature Pulse Rate 61 63 62 Respiratory Rate 28 H 19 15 Blood Pressure 135/73 136/74 134/75 Pulse Oximetry 100 100 99 07/06/18 12:00 07/06/18 13:00 07/06/18 14:00 Temperature 98.5 F Pulse Rate 216 H 67 69 Respiratory Rate 18 43 H 30 H Blood Pressure 143/75 H 150/82 H 158/85 H Pulse Oximetry 100 100 100 07/06/18 15:00 07/06/18 15:39 07/06/18 16:00 Temperature 99.0 F Pulse Rate 66 67 Respiratory Rate 34 H 16 15 Blood Pressure 150/82 H 141/76 H Pulse Oximetry 99 100 99 07/06/18 17:00 07/06/18 18:00 07/06/18 19:00 Temperature Pulse Rate 72 71 71 Respiratory Rate 22 12 14 Blood Pressure 151/97 H 157/81 H 142/78 H Pulse Oximetry 100 100 100 07/06/18 20:00 07/06/18 21:00 07/06/18 21:10 Temperature 98.6 F Pulse Rate 68 68 Respiratory Rate 14 14 Blood Pressure 150/81 H Pulse Oximetry 100 100 07/06/18 22:00 07/06/18 23:00 07/07/18 00:00 Temperature 98.7 F Pulse Rate 68 60 60 Respiratory Rate 14 Blood Pressure 128/75 Pulse Oximetry 98 07/07/18 00:34 07/07/18 01:00 07/07/18 02:00 Temperature 98.7 F Pulse Rate 59 L 65 Respiratory Rate 14 14 Blood Pressure 133/76 Pulse Oximetry 100 100 07/07/18 03:00 07/07/18 04:00 07/07/18 04:40 Temperature 97.7 F Pulse Rate 62 62 Respiratory Rate 14 14 Blood Pressure 138/70 Pulse Oximetry 100 100 07/07/18 05:00 07/07/18 06:00 07/07/18 07:00 Temperature Pulse Rate 60 72 55 L Respiratory Rate 14 Blood Pressure 121/67 Pulse Oximetry 100 07/07/18 08:00 Temperature 99.8 F H Pulse Rate 61 Respiratory Rate 14 Blood Pressure 123/64 Pulse Oximetry 100 Intake & Output 07/06/18 07/07/18 07/07/18 18:59 06:59 18:59 Intake Total 1304 / 1304 1879.0 / 1879.0 1207.5 / 1207.5 Output Total 3350 / 3350 5250 / 5250 Balance -2046 / -2046 -3371.0 / -3371.0 1207.5 / 1207.5 Intake: IV 800 / 800 1015.0 / 1015.0 1207.5 / 1207.5 NS Inj 1,000 ML @ 30 mls/hr IV. 200 / 200 300 / 300 1000 / 1000 CONT .Q24H [facility] Rx#:[id number] Maxipime Inj 2,000 MG In NS Inj 200 / 200 100 / 100 100 ML @ 200 mls/hr IV.SIG Q8H [facility] Rx#:[id number] Zyvox 600 mg Premix 300 ML @ 300 / 300 300 / 300 300 mls/hr IV.SIG Q12H [facility] Rx#: [id number] Depacon Inj 750 MG In NS Inj 215.0 / 215.0 107.5 / 107.5 100 ML @ 105 mls/hr IV.SIG Q8HR [facility] Rx#:[id number] Keppra 1000 mg/100 mL Premix 100 / 100 100 / 100 100 / 100 100 ML @ 400 mls/hr IV.SIG Q12H [facility] Rx#:[id number] Tube Feeding 500 / 500 500 / 500 Tube Irrigant 4 / 4 4 / 4 Water Bolus Amount 200 / 200 Other 160 / 160 Output: Urine 3350 / 3350 3350 / 3350 Urine Amount (Catheter) 1900 / 1900 Indwelling Urethral Catheter 1900 / 1900 Gastric Drainage 0 / 0 Oral Orogastric Tube 0 / 0 Other: Date of Last Bowel Movement 07/05/18 07/05/18 # Bowel Movements 1 # Incontinent Bowel Movements 1 Narrative: pupils equal grimacing but not opening eyes for me not following commands - Urinary Catheter Management Indwelling Urethral Catheter Cath placed during this visit: yes Reason for continuing: Acute urinary retention Insertion date: 06/24/18 Insertion time: 09:50 Assessment and Plan - Plan 67-year-old male Status epilepticus ICH/SDH Acute respiratory failure on mechanical ventilation, s/p tracheostomy Left humerus fracture History of dementia History of stroke Hypertension Plan: cont neuro checks for PEG today cont critical care mgt
[2018-07-07] MEDS: amLODIPine 10 MG Tablet PO SCH (09:59)
--- NOTE | 2018-07-07 10:26 | P.PNCC ---
Subjective Subjective Remarks/Hospital Course: 06/24: 67-year-old male with a medical history significant for dementia, seizure disorder, previous stroke, hypertension who was brought to the ER from skilled nursing after he had multiple seizures this morning. On arrival in the ER he appeared to be seizing and was intubated by ER physician and placed on mechanical ventilation and sedated with propofol. Head CT done in the ER revealed left frontal intraparenchymal bleed with subdural hemorrhage. Patient was also noted to have a left humerus neck fracture on x-ray. He reportedly has been falling at the skilled nursing multiple times. Patient has been on Eliquis at home and he received K Centra following arrival to the ER for reversal. 06/25: Remains sedated, orally intubated on mechanical ventilation. Head CT done today with new area of small subdural hemorrhage and increase in size of intraventricular hemorrhage, intraparenchymal hemorrhage same size. 06/26: Remains sedated, orally intubated on mechanical ventilation. Repeat head CT shows slight worsening of intra-cerebral hemorrhage yesterday. 06/27: Remains sedated, orally intubated on mechanical ventilation. 06/28: Endotracheal tube dislodged, replaced this morning. Oxygen saturation remained at 100% throughout. Withdraws four limbs and localizes all to pain. No obvious seizure activity. Not alert enough to extubate. 06/29: More active today. Will start spontaneous breathing trials. He EVD elevated to 5 cm, observe neurologic function closely. 06/30: Tolerating elevated EVD. Continue spontaneous breathing trials. Replace potassium today. 07/01: EVD drainage remains light yellow. Patient remains to somnolent to control airway if we extubate. She is very comfortable on spontaneous breathing trials with good respiratory mechanics and strength. 07/02: Remains encephalopathic, orally intubated on mechanical ventilation. Ventriculostomy remains in place. 07/03: Remains encephalopathic, orally intubated on mechanical ventilation. Ventriculostomy clamped today. 07/04: Remains encephalopathic, orally intubated on mechanical ventilation. Febrile this morning. Ventriculostomy discontinued today. Sputum growing MRSA and Pseudomonas from 07/02 cultures. On IV Zosyn. Added IV Zyvox on 07/04. Guardian wishes to proceed with tracheostomy and PEG tube for palliative care. Consulted GI for PEG tube placement. 12/01: Will convert to cefepime until sensitivities back. No change in neurologic function. Remains ventilator dependent. 07/06: Family requests and guardian concurs that patient should have a tracheostomy and PEG tube insertion. These interventions have been discussed in detail with the patient's guardian. No improvement in neurologic function. 07/07: Remains on mechanical ventilation via tracheostomy. Awaiting PEG tube placement today. Objective Vital Signs / I&O: Vital Signs 07/06/18 10:39 07/06/18 10:48 07/06/18 10:50 Temperature Pulse Rate 69 67 Respiratory Rate 27 H 20 Blood Pressure 131/72 136/78 Pulse Oximetry 100 99 98 07/06/18 10:52 07/06/18 10:54 07/06/18 10:56 Temperature Pulse Rate 66 66 65 Respiratory Rate 14 19 14 Blood Pressure 132/76 138/80 134/77 Pulse Oximetry 98 98 98 07/06/18 10:58 07/06/18 11:00 07/06/18 11:02 Temperature Pulse Rate 65 65 64 Respiratory Rate 14 18 17 Blood Pressure 132/75 132/78 126/74 Pulse Oximetry 98 98 98 07/06/18 11:04 07/06/18 11:06 07/06/18 11:08 Temperature Pulse Rate 63 65 64 Respiratory Rate 14 14 86 H Blood Pressure 127/76 127/72 126/72 Pulse Oximetry 98 98 98 07/06/18 11:10 07/06/18 11:12 07/06/18 11:14 Temperature Pulse Rate 64 63 66 Respiratory Rate 106 H 84 H 71 H Blood Pressure 131/75 127/68 128/73 Pulse Oximetry 98 98 98 07/06/18 11:16 07/06/18 11:18 07/06/18 11:20 Temperature Pulse Rate 63 62 64 Respiratory Rate 64 H 48 H 58 H Blood Pressure 130/74 130/74 126/72 Pulse Oximetry 98 98 98 07/06/18 11:21 07/06/18 11:22 07/06/18 11:24 Temperature Pulse Rate 63 63 Respiratory Rate 14 55 H 53 H Blood Pressure 129/74 128/74 Pulse Oximetry 98 98 98 07/06/18 11:26 07/06/18 11:28 07/06/18 11:30 Temperature Pulse Rate 65 62 60 Respiratory Rate 33 H 25 H 30 H Blood Pressure 141/80 H 150/77 H 137/75 Pulse Oximetry 100 100 100 07/06/18 11:32 07/06/18 11:34 07/06/18 11:36 Temperature Pulse Rate 61 63 62 Respiratory Rate 28 H 19 15 Blood Pressure 135/73 136/74 134/75 Pulse Oximetry 100 100 99 07/06/18 12:00 07/06/18 13:00 07/06/18 14:00 Temperature 98.5 F Pulse Rate 216 H 67 69 Respiratory Rate 18 43 H 30 H Blood Pressure 143/75 H 150/82 H 158/85 H Pulse Oximetry 100 100 100 07/06/18 15:00 07/06/18 15:39 07/06/18 16:00 Temperature 99.0 F Pulse Rate 66 67 Respiratory Rate 34 H 16 15 Blood Pressure 150/82 H 141/76 H Pulse Oximetry 99 100 99 07/06/18 17:00 07/06/18 18:00 07/06/18 19:00 Temperature Pulse Rate 72 71 71 Respiratory Rate 22 12 14 Blood Pressure 151/97 H 157/81 H 142/78 H Pulse Oximetry 100 100 100 07/06/18 20:00 07/06/18 21:00 07/06/18 21:10 Temperature 98.6 F Pulse Rate 68 68 Respiratory Rate 14 14 Blood Pressure 150/81 H Pulse Oximetry 100 100 07/06/18 22:00 07/06/18 23:00 07/07/18 00:00 Temperature 98.7 F Pulse Rate 68 60 60 Respiratory Rate 14 Blood Pressure 128/75 Pulse Oximetry 98 07/07/18 00:34 07/07/18 01:00 07/07/18 02:00 Temperature 98.7 F Pulse Rate 59 L 65 Respiratory Rate 14 14 Blood Pressure 133/76 Pulse Oximetry 100 100 07/07/18 03:00 07/07/18 04:00 07/07/18 04:40 Temperature 97.7 F Pulse Rate 62 62 Respiratory Rate 14 14 Blood Pressure 138/70 Pulse Oximetry 100 100 07/07/18 05:00 07/07/18 06:00 07/07/18 07:00 Temperature Pulse Rate 60 72 55 L Respiratory Rate 14 Blood Pressure 121/67 Pulse Oximetry 100 07/07/18 08:00 07/07/18 09:00 07/07/18 10:00 Temperature 99.8 F H Pulse Rate 61 62 55 L Respiratory Rate 14 14 14 Blood Pressure 123/64 129/67 129/68 Pulse Oximetry 100 100 100 Intake & Output 07/06/18 07/07/18 07/07/18 18:59 06:59 18:59 Intake Total 1304 / 1304 1879.0 / 1879.0 1607.5 / 1607.5 Output Total 3350 / 3350 5250 / 5250 Balance -2046 / -2046 -3371.0 / -3371.0 1607.5 / 1607.5 Intake: IV 800 / 800 1015.0 / 1015.0 1607.5 / 1607.5 NS Inj 1,000 ML @ 30 mls/hr IV. 200 / 200 300 / 300 1000 / 1000 CONT .Q24H [facility] Rx#:[id number] Maxipime Inj 2,000 MG In NS Inj 200 / 200 100 / 100 100 / 100 100 ML @ 200 mls/hr IV.SIG Q8H [facility] Rx#:[id number] Zyvox 600 mg Premix 300 ML @ 300 / 300 300 / 300 300 / 300 300 mls/hr IV.SIG Q12H [facility] Rx#: [id number] Depacon Inj 750 MG In NS Inj 215.0 / 215.0 107.5 / 107.5 100 ML @ 105 mls/hr IV.SIG Q8HR [facility] Rx#:[id number] Keppra 1000 mg/100 mL Premix 100 / 100 100 / 100 100 / 100 100 ML @ 400 mls/hr IV.SIG Q12H [facility] Rx#:[id number] Tube Feeding 500 / 500 500 / 500 Tube Irrigant 4 / 4 4 / 4 Water Bolus Amount 200 / 200 Other 160 / 160 Output: Urine 3350 / 3350 3350 / 3350 Urine Amount (Catheter) 1900 / 1900 Indwelling Urethral Catheter 1900 / 1900 Gastric Drainage 0 / 0 Oral Orogastric Tube 0 / 0 Other: Date of Last Bowel Movement 07/05/18 07/05/18 07/05/18 # Bowel Movements 1 # Incontinent Bowel Movements 1 Result Diagrams: 07/07/18 04:04 07/07/18 04:04 Objective Remarks: Neuro: No sedation, orally intubated, PERRL, reactive to light bilaterally. Localizes for 4 limbs. Does not open his eyes to stimulation. ENT: Neck supple. Tracheostomy in place Chest/Pulm: Good air movement bilaterally while on SBT, no wheezing or crackles. Week during trials. CVS: S1-S2 Regular, no murmur, no JVD GI/abdomen: Soft, nontender, nondistended, bowel sounds present, no guarding. Extremities: Warm bilaterally, no edema. Remains well perfused. Assessment and Plan - Assessment and Plan Plan: 67-year-old male with: Status epilepticus ICH/SDH Acute respiratory failure on mechanical ventilation Left humerus fracture History of dementia History of stroke Hypertension Suspected sepsis Plan: Neuro: Continue to hold sedation. Keppra 1 g IV every 12 hourly. Valproate 500 mg IV every 8 hourly switched from p.o. dose at home. Follow valproate level. EVD discontinued 07/04 Cardiovascular: Hold antihypertensives. Maintenance IV fluid. Pulmonary: Continue mechanical ventilation, vent bundle, bronchodilators as needed. Continue spontaneous breathing trials. status post tracheostomy following discussion with legal guardian. GI/liver: Tolerating tube feeds, follow prealbumin weekly. Consulted GI for PEG tube placement-scheduled for 07/07 Renal/: IV hydration, strict intake, monitor and replete electrolytes, follow BUN and creatinine. MSK: Orthopedics consult for left humerus fracture noted - nonoperative management. ID: Pancultures ordered on 07/03 and started on empiric antibiotic coverage with IV Zosyn in view of fevers and bandemia. Sputum culture 07/02: MRSA and Pseudomonas. Added IV Zyvox on 07/04 to cover for MRSA pneumonia, discontinue PIP CARMEN, start cefepime. Endocrine: SSI as needed for glycemic control if needed Heme: Follow CBC. Received K Centra to reverse Eliquis in the ER. Prophylaxis: Pepcid/SCDs. Palliative care following. Patient is DNR status Overall impression: Patient remains critically ill, requiring intubation and mechanical ventilation for treatment of the severe neurologic encephalopathy. Seizure activity appears to be controlled. Unable to wean from ventilator but will continue spontaneous trials daily. Will need tracheostomy and PEG tube if aggressive care continues. Palliative care discussed with patient's POA/legal guardian on 07/04; proceed with tracheostomy and PEG tube placement.
[2018-07-07 15:50] LABS: Alanine Aminotransferase 25 U/L (12-78); Alkaline Phosphatase 83 U/L (45-117)
[2018-07-07 15:57] LABS: Anion Gap 7 meq/L (5-15); Aspartate Aminotransferase 24 U/L (15-37); Blood Urea Nitrogen 10 mg/dL (7-18); Calcium 7.8 mg/dL (8.5-10.1); Carbon Dioxide 28.3 meq/L (21.0-32.0); Chloride 107 meq/L (98-107); Glomerular Filtration Rate Greater Than 89 mL/min (>89); Glucose,Random 83 mg/dL (74-106); Sodium 142 meq/L (136-145)
--- NOTE | 2018-07-07 17:12 | GIPROC ---
[facility] [address] [facility]. 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 TOPICAL ANESTHETIC: Xylocaine 1% CONSENT: The patient understands the risks and benefits of the procedure and understands that these risks include, but are not limited to: sedation, allergic reaction, infection, perforation and/or bleeding. Alternative means of evaluation and treatment include, among others: physical exam, x-rays, and/or surgical intervention. The patient elects to proceed with this endoscopic procedure. medical equipment was checked for proper function. Hand hygiene and appropriate measures for infection prevention was taken. After the risks, benefits and alternatives of the procedure were thoroughly explained, Informed consent was verified, confirmed and timeout was successfully executed by the treatment team. The patient was anesthetized with topical anesthesia and the [employer] EG-[id number] endoscope was introduced through the mouth and advanced to the . The instrument was slowly withdrawn as the mucosa was fully examined. The stomach was then inflated with air, and by a combination of transillumination and manual palpation, the site for the gastrostomy tube placement was selected and marked on the anterior abdominal wall. The skin of the anterior abdomen was surgically prepped and draped with sterile towels. Utilizing strict sterile technique, the selected site was then anesthetized with 1% xylocaine by injection into the skin and subcutaneous tissue. A 1 cm incision was made through the skin and subcutaneous tissue, and the needle/cannula assembly was then passed through the abdominal wall and through the anterior wall of the stomach, maintaining visualization with the endoscope. A snare device previously placed through the instrument channel was then opened and placed around the cannula, the needle was removed, and the insertion wire was passed through the cannula and into the stomach lumen. The snare was then loosened from the cannula, and repositioned to snare the insertion wire. The snare was then pulled up to the endoscope distal tip, and the scope was then withdrawn bringing with it the snare and insertion wire. The insertion wire was then released from the snare, and then loop-attached to the Bard 20 Fr gastrostomy tube. Using the "pull technique", the G-tube was then pulled into place by traction on the insertion wire at the abdominal wall end. The G-tube insertion site was then cleansed once again, and the external bolster was placed over the tube to secure it to the abdominal wall. A sterile dressing was then applied, and the procedure terminated. The gastroscope was then slowly withdrawn and removed. ADVERSE EVENT: There were no complications. IMPRESSIONS: S/p percutaneous endoscopic gastrostomy RECOMMENDATIONS: Follow PEG suggestions REPEAT EXAM: Return as needed for Gastrostomy Tube Replacement Jayro Young MD eSigned: Jayro Young MD 07/07/2018 5:11 PM cc: PATIENT NAME: Rodrigo Rai MR#: [id number]
[2018-07-08] MEDS: Oral Hygiene Kit OROPHARYNG SCH ×4 (00:11→15:41)
[2018-07-08] MEDS: Valproate Inj 750 MG in Sodium Chlor 0.9% Inj 100 ML IV.SIG SCH ×2 (05:39→14:43)
[2018-07-08] MEDS: Naphazoline 0.012% Opth Drops 30 ML Bottle EACH EYE SCH ×5 (05:41→18:49)
[2018-07-08 07:21] LABS: Alanine Aminotransferase 25 U/L (12-78); Anion Gap 6 meq/L (5-15); Aspartate Aminotransferase 20 U/L (15-37); Blood Urea Nitrogen 10 mg/dL (7-18); Calcium 7.9 mg/dL (8.5-10.1); Carbon Dioxide 28.2 meq/L (21.0-32.0); Chloride 108 meq/L (98-107); Glomerular Filtration Rate Greater Than 89 mL/min (>89); Glucose,Random 96 mg/dL (74-106); Potassium 3.3 meq/L (3.5-5.1); Sodium 142 meq/L (136-145)
[2018-07-08 07:23] LABS: Alkaline Phosphatase 89 U/L (45-117); Total Protein 5.9 g/dL (6.4-8.2)
[2018-07-08] MEDS: Metoprolol Tartrate 25 MG Tablet PO SCH (07:59)
[2018-07-08] MEDS: Potassium Chloride 25 MEQ Effervescent Tablet PO PRN (09:09)
[2018-07-08] MEDS: Famotidine 20 MG Tablet NG/OG SCH (09:09)
[2018-07-08] MEDS: levETIRAcetam 1000mg/100mL Inj 100 ML IV.SIG SCH (09:09)
[2018-07-08] MEDS: amLODIPine 10 MG Tablet PO SCH (09:09)
[2018-07-08] MEDS: Sod Chloride 0.9% Inj 1,000 ML IV.CONT SCH (09:10)
[2018-07-08] MEDS: Chlorhexidine 0.12% Oral Kit 15 ML UDC OROPHARYNG SCH (09:10)
--- NOTE | 2018-07-08 10:54 | P.PNNS ---
Subjective Interval history: had PEG tube placement yesterday, today seen to be opening eyes, moving right side spontaneously. otherwise no neuro changes reported Physical Exam Vital signs: Vital Signs 07/07/18 11:00 07/07/18 12:00 07/07/18 13:00 Temperature 98.6 F Pulse Rate 58 L 67 58 L Respiratory Rate 14 14 7 L Blood Pressure 132/75 123/68 114/66 Pulse Oximetry 100 100 100 07/07/18 14:00 07/07/18 15:00 07/07/18 16:00 Temperature Pulse Rate 60 61 62 Respiratory Rate 8 L 20 12 Blood Pressure 115/66 144/81 H 122/68 Pulse Oximetry 100 100 100 07/07/18 16:06 07/07/18 16:08 07/07/18 16:10 Temperature 98.7 F Pulse Rate 59 L 61 60 Respiratory Rate 14 14 14 Blood Pressure 121/67 126/70 124/68 Pulse Oximetry 100 100 100 07/07/18 16:48 07/07/18 16:50 07/07/18 16:53 Temperature Pulse Rate 58 L 64 63 Respiratory Rate 15 11 L 12 Blood Pressure 117/61 128/72 136/65 Pulse Oximetry 100 100 100 07/07/18 16:55 07/07/18 16:58 07/07/18 17:00 Temperature Pulse Rate 63 65 62 Respiratory Rate 16 16 14 Blood Pressure 129/68 129/72 125/72 Pulse Oximetry 100 100 100 07/07/18 17:03 07/07/18 17:05 07/07/18 17:08 Temperature Pulse Rate 62 64 61 Respiratory Rate 14 14 14 Blood Pressure 127/72 128/66 124/67 Pulse Oximetry 100 100 100 07/07/18 17:10 07/07/18 17:13 07/07/18 17:15 Temperature Pulse Rate 60 61 60 Respiratory Rate 14 14 16 Blood Pressure 122/68 120/67 126/71 Pulse Oximetry 100 100 100 07/07/18 17:17 07/07/18 17:18 07/07/18 17:20 Temperature Pulse Rate 67 65 Respiratory Rate 17 16 14 Blood Pressure 132/74 130/74 Pulse Oximetry 100 100 100 07/07/18 17:23 07/07/18 17:25 07/07/18 17:28 Temperature Pulse Rate 63 62 62 Respiratory Rate 14 14 10 L Blood Pressure 126/72 128/75 127/74 Pulse Oximetry 100 100 100 07/07/18 17:30 07/07/18 17:33 07/07/18 17:35 Temperature Pulse Rate 60 60 58 L Respiratory Rate 10 L 8 L 14 Blood Pressure 127/72 128/72 121/67 Pulse Oximetry 100 100 100 07/07/18 17:38 07/07/18 17:40 07/07/18 17:43 Temperature Pulse Rate 57 L 63 63 Respiratory Rate 14 15 14 Blood Pressure 119/70 141/72 H 130/70 Pulse Oximetry 100 100 100 07/07/18 17:45 07/07/18 17:48 07/07/18 17:50 Temperature Pulse Rate 62 61 59 L Respiratory Rate 14 14 14 Blood Pressure 130/72 129/73 131/72 Pulse Oximetry 99 100 100 07/07/18 17:53 07/07/18 17:55 07/07/18 17:58 Temperature Pulse Rate 59 L 59 L 58 L Respiratory Rate 14 13 14 Blood Pressure 129/74 131/68 129/67 Pulse Oximetry 100 99 100 07/07/18 18:00 07/07/18 18:03 07/07/18 18:05 Temperature Pulse Rate 57 L 66 60 Respiratory Rate 14 14 14 Blood Pressure 130/71 135/76 130/73 Pulse Oximetry 100 100 100 07/07/18 18:08 07/07/18 19:00 07/07/18 19:23 Temperature Pulse Rate 58 L 60 55 L Respiratory Rate 14 14 5 L Blood Pressure 128/70 130/68 117/66 Pulse Oximetry 100 100 100 07/07/18 19:25 07/07/18 19:28 07/07/18 19:30 Temperature Pulse Rate 65 56 L 57 L Respiratory Rate 13 14 12 Blood Pressure 133/71 127/65 122/67 Pulse Oximetry 100 100 100 07/07/18 19:33 07/07/18 19:35 07/07/18 19:38 Temperature Pulse Rate 55 L 56 L 55 L Respiratory Rate 14 14 14 Blood Pressure 123/70 125/71 131/75 Pulse Oximetry 100 100 100 07/07/18 19:40 07/07/18 19:43 07/07/18 19:45 Temperature Pulse Rate 56 L 55 L 59 L Respiratory Rate 14 14 13 Blood Pressure 132/67 118/64 122/68 Pulse Oximetry 100 100 100 07/07/18 20:00 07/07/18 20:18 07/07/18 21:00 Temperature Pulse Rate 56 L 57 L Respiratory Rate 14 14 15 Blood Pressure 138/71 127/73 Pulse Oximetry 100 100 100 07/07/18 22:00 07/07/18 23:00 07/08/18 00:00 Temperature Pulse Rate 63 55 L 56 L Respiratory Rate 20 14 14 Blood Pressure 136/71 128/69 129/70 Pulse Oximetry 100 100 100 07/08/18 01:00 07/08/18 01:21 07/08/18 02:00 Temperature Pulse Rate 56 L 58 L Respiratory Rate 12 20 11 L Blood Pressure 130/71 137/71 Pulse Oximetry 100 100 100 07/08/18 03:00 07/08/18 04:00 07/08/18 04:02 Temperature 98.3 F Pulse Rate 59 L 60 Respiratory Rate 17 14 14 Blood Pressure 147/74 H 125/69 Pulse Oximetry 100 100 100 07/08/18 05:00 07/08/18 05:45 07/08/18 06:00 Temperature 98.3 F Pulse Rate 57 L 65 54 L Respiratory Rate 14 14 Blood Pressure 129/70 122/69 Pulse Oximetry 100 100 07/08/18 07:00 07/08/18 08:00 07/08/18 08:39 Temperature Pulse Rate 56 L 54 L Respiratory Rate 14 14 18 Blood Pressure 115/66 133/72 Pulse Oximetry 100 100 100 07/08/18 09:00 Temperature 98.8 F Pulse Rate 54 L Respiratory Rate 12 Blood Pressure 113/65 Pulse Oximetry 100 Intake & Output 07/07/18 07/08/18 07/08/18 18:59 06:59 18:59 Intake Total 2265.0 / 2265.0 1255.0 / 1255.0 400 / 400 Output Total 1800 / 1800 2200 / 2200 Balance 465.0 / 465.0 -945.0 / -945.0 400 / 400 Weight 89 kg Intake: IV 1815.0 / 1815.0 815.0 / 815.0 400 / 400 NS Inj 1,000 ML @ 30 mls/hr IV. 1000 / 1000 CONT .Q24H [facility] Rx#:[id number] Maxipime Inj 2,000 MG In NS Inj 200 / 200 200 / 200 100 ML @ 200 mls/hr IV.SIG Q8H [facility] Rx#:[id number] Zyvox 600 mg Premix 300 ML @ 300 / 300 300 / 300 300 / 300 300 mls/hr IV.SIG Q12H [facility] Rx#: [id number] Depacon Inj 750 MG In NS Inj 215.0 / 215.0 215.0 / 215.0 100 ML @ 105 mls/hr IV.SIG Q8HR [facility] Rx#:[id number] Keppra 1000 mg/100 mL Premix 100 / 100 100 / 100 100 / 100 100 ML @ 400 mls/hr IV.SIG Q12H [facility] Rx#:[id number] Tube Feeding 0 / 0 380 / 380 Tube Irrigant 60 / 60 Water Bolus Amount 150 / 150 Anesthesia Amount 300 / 300 Output: Urine 900 / 900 Urine Amount (Catheter) 900 / 900 2200 / 2200 Indwelling Urethral Catheter 900 / 900 2200 / 2200 Gastric Drainage 0 / 0 Oral Orogastric Tube 0 / 0 Other: Date of Last Bowel Movement 07/05/18 07/08/18 07/08/18 # Bowel Movements 1 2 # Incontinent Bowel Movements 1 Narrative: pupils equal grimacing, intermittently opens eyes not following commands moving right upper and right lower extremity spontaneously, 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
--- NOTE | 2018-07-08 12:12 | P.PNGI ---
Subjective Interval history: Intubated and mechanically ventilated PEG tube intact with Jevity 1.5 at 40 mL's per hour Dressing dry and intact with no drainage or signs of infection Physical Exam Vital signs: Vital Signs 07/07/18 13:00 07/07/18 14:00 07/07/18 15:00 Temperature Pulse Rate 58 L 60 61 Respiratory Rate 7 L 8 L 20 Blood Pressure 114/66 115/66 144/81 H Pulse Oximetry 100 100 100 07/07/18 16:00 07/07/18 16:06 07/07/18 16:08 Temperature 98.7 F Pulse Rate 62 59 L 61 Respiratory Rate 12 14 14 Blood Pressure 122/68 121/67 126/70 Pulse Oximetry 100 100 100 07/07/18 16:10 07/07/18 16:48 07/07/18 16:50 Temperature Pulse Rate 60 58 L 64 Respiratory Rate 14 15 11 L Blood Pressure 124/68 117/61 128/72 Pulse Oximetry 100 100 100 07/07/18 16:53 07/07/18 16:55 07/07/18 16:58 Temperature Pulse Rate 63 63 65 Respiratory Rate 12 16 16 Blood Pressure 136/65 129/68 129/72 Pulse Oximetry 100 100 100 07/07/18 17:00 07/07/18 17:03 07/07/18 17:05 Temperature Pulse Rate 62 62 64 Respiratory Rate 14 14 14 Blood Pressure 125/72 127/72 128/66 Pulse Oximetry 100 100 100 07/07/18 17:08 07/07/18 17:10 07/07/18 17:13 Temperature Pulse Rate 61 60 61 Respiratory Rate 14 14 14 Blood Pressure 124/67 122/68 120/67 Pulse Oximetry 100 100 100 07/07/18 17:15 07/07/18 17:17 07/07/18 17:18 Temperature Pulse Rate 60 67 Respiratory Rate 16 17 16 Blood Pressure 126/71 132/74 Pulse Oximetry 100 100 100 07/07/18 17:20 07/07/18 17:23 07/07/18 17:25 Temperature Pulse Rate 65 63 62 Respiratory Rate 14 14 14 Blood Pressure 130/74 126/72 128/75 Pulse Oximetry 100 100 100 07/07/18 17:28 07/07/18 17:30 07/07/18 17:33 Temperature Pulse Rate 62 60 60 Respiratory Rate 10 L 10 L 8 L Blood Pressure 127/74 127/72 128/72 Pulse Oximetry 100 100 100 07/07/18 17:35 07/07/18 17:38 07/07/18 17:40 Temperature Pulse Rate 58 L 57 L 63 Respiratory Rate 14 14 15 Blood Pressure 121/67 119/70 141/72 H Pulse Oximetry 100 100 100 07/07/18 17:43 07/07/18 17:45 07/07/18 17:48 Temperature Pulse Rate 63 62 61 Respiratory Rate 14 14 14 Blood Pressure 130/70 130/72 129/73 Pulse Oximetry 100 99 100 07/07/18 17:50 07/07/18 17:53 07/07/18 17:55 Temperature Pulse Rate 59 L 59 L 59 L Respiratory Rate 14 14 13 Blood Pressure 131/72 129/74 131/68 Pulse Oximetry 100 100 99 07/07/18 17:58 07/07/18 18:00 07/07/18 18:03 Temperature Pulse Rate 58 L 57 L 66 Respiratory Rate 14 14 14 Blood Pressure 129/67 130/71 135/76 Pulse Oximetry 100 100 100 07/07/18 18:05 07/07/18 18:08 07/07/18 19:00 Temperature Pulse Rate 60 58 L 60 Respiratory Rate 14 14 14 Blood Pressure 130/73 128/70 130/68 Pulse Oximetry 100 100 100 07/07/18 19:23 07/07/18 19:25 07/07/18 19:28 Temperature Pulse Rate 55 L 65 56 L Respiratory Rate 5 L 13 14 Blood Pressure 117/66 133/71 127/65 Pulse Oximetry 100 100 100 07/07/18 19:30 07/07/18 19:33 07/07/18 19:35 Temperature Pulse Rate 57 L 55 L 56 L Respiratory Rate 12 14 14 Blood Pressure 122/67 123/70 125/71 Pulse Oximetry 100 100 100 07/07/18 19:38 07/07/18 19:40 07/07/18 19:43 Temperature Pulse Rate 55 L 56 L 55 L Respiratory Rate 14 14 14 Blood Pressure 131/75 132/67 118/64 Pulse Oximetry 100 100 100 07/07/18 19:45 07/07/18 20:00 07/07/18 20:18 Temperature Pulse Rate 59 L 56 L Respiratory Rate 13 14 14 Blood Pressure 122/68 138/71 Pulse Oximetry 100 100 100 07/07/18 21:00 07/07/18 22:00 07/07/18 23:00 Temperature Pulse Rate 57 L 63 55 L Respiratory Rate 15 20 14 Blood Pressure 127/73 136/71 128/69 Pulse Oximetry 100 100 100 07/08/18 00:00 07/08/18 01:00 07/08/18 01:21 Temperature Pulse Rate 56 L 56 L Respiratory Rate 14 12 20 Blood Pressure 129/70 130/71 Pulse Oximetry 100 100 100 07/08/18 02:00 07/08/18 03:00 07/08/18 04:00 Temperature 98.3 F Pulse Rate 58 L 59 L 60 Respiratory Rate 11 L 17 14 Blood Pressure 137/71 147/74 H 125/69 Pulse Oximetry 100 100 100 07/08/18 04:02 07/08/18 05:00 07/08/18 05:45 Temperature 98.3 F Pulse Rate 57 L 65 Respiratory Rate 14 14 Blood Pressure 129/70 Pulse Oximetry 100 100 07/08/18 06:00 07/08/18 07:00 07/08/18 08:00 Temperature Pulse Rate 54 L 56 L 54 L Respiratory Rate 14 14 14 Blood Pressure 122/69 115/66 133/72 Pulse Oximetry 100 100 100 07/08/18 08:39 07/08/18 09:00 Temperature 98.8 F Pulse Rate 54 L Respiratory Rate 18 12 Blood Pressure 113/65 Pulse Oximetry 100 100 Intake & Output 07/07/18 07/08/18 07/08/18 18:59 06:59 18:59 Intake Total 2265.0 / 2265.0 1255.0 / 1255.0 400 / 400 Output Total 1800 / 1800 2200 / 2200 Balance 465.0 / 465.0 -945.0 / -945.0 400 / 400 Weight 89 kg Intake: IV 1815.0 / 1815.0 815.0 / 815.0 400 / 400 NS Inj 1,000 ML @ 30 mls/hr IV. 1000 / 1000 CONT .Q24H EST[facility]A Rx#:[id number] Maxipime Inj 2,000 MG In NS Inj 200 / 200 200 / 200 100 ML @ 200 mls/hr IV.SIG Q8H ESTELA Rx#:[id number] Zyvox 600 mg Premix 300 ML @ 300 / 300 300 / 300 300 / 300 300 mls/hr IV.SIG Q12H ESTELA Rx#: [id number] Depacon Inj 750 MG In NS Inj 215.0 / 215.0 215.0 / 215.0 100 ML @ 105 mls/hr IV.SIG Q8HR ESTELA Rx#:[id number] Keppra 1000 mg/100 mL Premix 100 / 100 100 / 100 100 / 100 100 ML @ 400 mls/hr IV.SIG Q12H ESTELA Rx#:[id number] Tube Feeding 0 / 0 380 / 380 Tube Irrigant 60 / 60 Water Bolus Amount 150 / 150 Anesthesia Amount 300 / 300 Output: Urine 900 / 900 Urine Amount (Catheter) 900 / 900 2200 / 2200 Indwelling Urethral Catheter 900 / 900 2200 / 2200 Gastric Drainage 0 / 0 Oral Orogastric Tube 0 / 0 Other: Date of Last Bowel Movement 07/05/18 07/08/18 07/08/18 # Bowel Movements 1 2 # Incontinent Bowel Movements 1 - Constitutional chronically ill appearing - Routine HEENT Exam Head: Present: normocephalic - Routine Respiratory Exam Present: patient mechanically ventilated, CTA bilaterally - Routine Abdominal Exam Present: soft, normoactive bowel sounds. Absent: distended, guarding, firm Comments: Gastrostomy tube with tube feeding no reported elevated residual - Routine Skin Exam Present: dry, warm - Urinary Catheter Management Indwelling Urethral Catheter Cath placed during this visit: yes Reason for continuing: Acute urinary retention Insertion date: 06/24/18 Insertion time: 09:50 Results - Labs CBC & Chem 7: 07/07/18 04:04 07/08/18 05:41 Laboratory Results - last 24 hr 07/07/18 07/08/18 15:03 05:41 Sodium 142 142 Potassium 4.0 3.3 L Chloride 107 108 H Carbon Dioxide 28.3 28.2 Anion Gap 7 6 BUN 10 10 Creatinine 0.58 L 0.58 L Estimated GFR Greater than 89 Greater than 89 Random Glucose 83 96 Calcium 7.8 L 7.9 L Total Bilirubin 0.3 0.3 AST 24 20 ALT 25 25 Alkaline Phosphatase 83 89 Total Protein 6.0 L D 5.9 L Albumin 2.0 L 2.0 L Microbiology 07/02/18 20:55 Blood - Peripheral Aerobic Blood Culture - Final No growth in 5 days 07/02/18 20:55 Blood - Peripheral Anaerobic Blood Culture - Final No growth in 5 days 07/02/18 21:01 Blood - Peripheral Aerobic Blood Culture - Final No growth in 5 days 07/02/18 21:01 Blood - Peripheral Anaerobic Blood Culture - Final No growth in 5 days Assessment and Plan (1) PEG (percutaneous endoscopic gastrostomy) status Status: Acute Code(s): Z93.1 - Gastrostomy status - Plan PEG tube status 07/07/2018 PEG tube insertion-- There were no complications. S/p percutaneous endoscopic gastrostomy Dressing dry and intact with no drainage or sign of infection. Jevity 1.5 at 40 mL's per hour infusing. Plan Tube feedings as per dietary recommendation Free water flushes every 6 hours and after each use Check for residuals Supportive care GI will sign off at this time, please notify if needed This patient has been seen by myself and Dr. Young and this note is written on his behalf - Attending Attestation freeman
--- NOTE | 2018-07-08 15:07 | P.PNCC ---
Subjective Subjective Remarks/Hospital Course: 06/24: 67-year-old male with a medical history significant for dementia, seizure disorder, previous stroke, hypertension who was brought to the ER from shelter after he had multiple seizures this morning. On arrival in the ER he appeared to be seizing and was intubated by ER physician and placed on mechanical ventilation and sedated with propofol. Head CT done in the ER revealed left frontal intraparenchymal bleed with subdural hemorrhage. Patient was also noted to have a left humerus neck fracture on x-ray. He reportedly has been falling at the shelter multiple times. Patient has been on Eliquis at home and he received K Centra following arrival to the ER for reversal. 06/25: Remains sedated, orally intubated on mechanical ventilation. Head CT done today with new area of small subdural hemorrhage and increase in size of intraventricular hemorrhage, intraparenchymal hemorrhage same size. 06/26: Remains sedated, orally intubated on mechanical ventilation. Repeat head CT shows slight worsening of intra-cerebral hemorrhage yesterday. 06/27: Remains sedated, orally intubated on mechanical ventilation. 06/28: Endotracheal tube dislodged, replaced this morning. Oxygen saturation remained at 100% throughout. Withdraws four limbs and localizes all to pain. No obvious seizure activity. Not alert enough to extubate. 06/29: More active today. Will start spontaneous breathing trials. He EVD elevated to 5 cm, observe neurologic function closely. 06/30: Tolerating elevated EVD. Continue spontaneous breathing trials. Replace potassium today. 07/01: EVD drainage remains light yellow. Patient remains to somnolent to control airway if we extubate. She is very comfortable on spontaneous breathing trials with good respiratory mechanics and strength. 07/02: Remains encephalopathic, orally intubated on mechanical ventilation. Ventriculostomy remains in place. 07/03: Remains encephalopathic, orally intubated on mechanical ventilation. Ventriculostomy clamped today. 07/04: Remains encephalopathic, orally intubated on mechanical ventilation. Febrile this morning. Ventriculostomy discontinued today. Sputum growing MRSA and Pseudomonas from 07/02 cultures. On IV Zosyn. Added IV Zyvox on 07/04. Guardian wishes to proceed with tracheostomy and PEG tube for palliative care. Consulted GI for PEG tube placement. 07/05: Will convert to cefepime until sensitivities back. No change in neurologic function. Remains ventilator dependent. 07/06: Family requests and guardian concurs that patient should have a tracheostomy and PEG tube insertion. These interventions have been discussed in detail with the patient's guardian. No improvement in neurologic function. 07/07: Remains on mechanical ventilation via tracheostomy. Awaiting PEG tube placement today. 07/08: Remains on mechanical ventilation via tracheostomy. PEG tube placed on . Not in any acute distress. Objective Vital Signs / I&O: Vital Signs 07/07/18 16:00 07/07/18 16:06 07/07/18 16:08 Temperature 98.7 F Pulse Rate 62 59 L 61 Respiratory Rate 12 14 14 Blood Pressure 122/68 121/67 126/70 Pulse Oximetry 100 100 100 07/07/18 16:10 07/07/18 16:48 07/07/18 16:50 Temperature Pulse Rate 60 58 L 64 Respiratory Rate 14 15 11 L Blood Pressure 124/68 117/61 128/72 Pulse Oximetry 100 100 100 07/07/18 16:53 07/07/18 16:55 07/07/18 16:58 Temperature Pulse Rate 63 63 65 Respiratory Rate 12 16 16 Blood Pressure 136/65 129/68 129/72 Pulse Oximetry 100 100 100 07/07/18 17:00 07/07/18 17:03 07/07/18 17:05 Temperature Pulse Rate 62 62 64 Respiratory Rate 14 14 14 Blood Pressure 125/72 127/72 128/66 Pulse Oximetry 100 100 100 07/07/18 17:08 07/07/18 17:10 07/07/18 17:13 Temperature Pulse Rate 61 60 61 Respiratory Rate 14 14 14 Blood Pressure 124/67 122/68 120/67 Pulse Oximetry 100 100 100 07/07/18 17:15 07/07/18 17:17 07/07/18 17:18 Temperature Pulse Rate 60 67 Respiratory Rate 16 17 16 Blood Pressure 126/71 132/74 Pulse Oximetry 100 100 100 07/07/18 17:20 07/07/18 17:23 07/07/18 17:25 Temperature Pulse Rate 65 63 62 Respiratory Rate 14 14 14 Blood Pressure 130/74 126/72 128/75 Pulse Oximetry 100 100 100 07/07/18 17:28 07/07/18 17:30 07/07/18 17:33 Temperature Pulse Rate 62 60 60 Respiratory Rate 10 L 10 L 8 L Blood Pressure 127/74 127/72 128/72 Pulse Oximetry 100 100 100 07/07/18 17:35 07/07/18 17:38 07/07/18 17:40 Temperature Pulse Rate 58 L 57 L 63 Respiratory Rate 14 14 15 Blood Pressure 121/67 119/70 141/72 H Pulse Oximetry 100 100 100 07/07/18 17:43 07/07/18 17:45 07/07/18 17:48 Temperature Pulse Rate 63 62 61 Respiratory Rate 14 14 14 Blood Pressure 130/70 130/72 129/73 Pulse Oximetry 100 99 100 07/07/18 17:50 07/07/18 17:53 07/07/18 17:55 Temperature Pulse Rate 59 L 59 L 59 L Respiratory Rate 14 14 13 Blood Pressure 131/72 129/74 131/68 Pulse Oximetry 100 100 99 07/07/18 17:58 07/07/18 18:00 07/07/18 18:03 Temperature Pulse Rate 58 L 57 L 66 Respiratory Rate 14 14 14 Blood Pressure 129/67 130/71 135/76 Pulse Oximetry 100 100 100 07/07/18 18:05 07/07/18 18:08 07/07/18 19:00 Temperature Pulse Rate 60 58 L 60 Respiratory Rate 14 14 14 Blood Pressure 130/73 128/70 130/68 Pulse Oximetry 100 100 100 07/07/18 19:23 07/07/18 19:25 07/07/18 19:28 Temperature Pulse Rate 55 L 65 56 L Respiratory Rate 5 L 13 14 Blood Pressure 117/66 133/71 127/65 Pulse Oximetry 100 100 100 07/07/18 19:30 07/07/18 19:33 07/07/18 19:35 Temperature Pulse Rate 57 L 55 L 56 L Respiratory Rate 12 14 14 Blood Pressure 122/67 123/70 125/71 Pulse Oximetry 100 100 100 07/07/18 19:38 07/07/18 19:40 07/07/18 19:43 Temperature Pulse Rate 55 L 56 L 55 L Respiratory Rate 14 14 14 Blood Pressure 131/75 132/67 118/64 Pulse Oximetry 100 100 100 07/07/18 19:45 07/07/18 20:00 07/07/18 20:18 Temperature Pulse Rate 59 L 56 L Respiratory Rate 13 14 14 Blood Pressure 122/68 138/71 Pulse Oximetry 100 100 100 07/07/18 21:00 07/07/18 22:00 07/07/18 23:00 Temperature Pulse Rate 57 L 63 55 L Respiratory Rate 15 20 14 Blood Pressure 127/73 136/71 128/69 Pulse Oximetry 100 100 100 07/08/18 00:00 07/08/18 01:00 07/08/18 01:21 Temperature Pulse Rate 56 L 56 L Respiratory Rate 14 12 20 Blood Pressure 129/70 130/71 Pulse Oximetry 100 100 100 07/08/18 02:00 07/08/18 03:00 07/08/18 04:00 Temperature 98.3 F Pulse Rate 58 L 59 L 60 Respiratory Rate 11 L 17 14 Blood Pressure 137/71 147/74 H 125/69 Pulse Oximetry 100 100 100 07/08/18 04:02 07/08/18 05:00 07/08/18 05:45 Temperature 98.3 F Pulse Rate 57 L 65 Respiratory Rate 14 14 Blood Pressure 129/70 Pulse Oximetry 100 100 07/08/18 06:00 07/08/18 07:00 07/08/18 08:00 Temperature Pulse Rate 54 L 56 L 54 L Respiratory Rate 14 14 14 Blood Pressure 122/69 115/66 133/72 Pulse Oximetry 100 100 100 07/08/18 08:39 07/08/18 09:00 07/08/18 10:00 Temperature 98.8 F Pulse Rate 54 L 56 L Respiratory Rate 18 12 14 Blood Pressure 113/65 125/69 Pulse Oximetry 100 100 100 07/08/18 11:00 07/08/18 12:00 07/08/18 13:00 Temperature Pulse Rate 56 L 63 64 Respiratory Rate 14 14 15 Blood Pressure 131/69 126/71 126/76 Pulse Oximetry 100 100 100 07/08/18 14:00 Temperature Pulse Rate 62 Respiratory Rate 14 Blood Pressure 130/73 Pulse Oximetry 100 Intake & Output 07/07/18 07/08/18 07/08/18 18:59 06:59 18:59 Intake Total 2265.0 / 2265.0 1255.0 / 1255.0 400 / 400 Output Total 1800 / 1800 2200 / 2200 Balance 465.0 / 465.0 -945.0 / -945.0 400 / 400 Weight 89 kg Intake: IV 1815.0 / 1815.0 815.0 / 815.0 400 / 400 NS Inj 1,000 ML @ 30 mls/hr IV. 1000 / 1000 CONT .Q24H [facility] Rx#:[id number] Maxipime Inj 2,000 MG In NS Inj 200 / 200 200 / 200 100 ML @ 200 mls/hr IV.SIG Q8H ESTELA Rx#:[id number] Zyvox 600 mg Premix 300 ML @ 300 / 300 300 / 300 300 / 300 300 mls/hr IV.SIG Q12H ESTELA Rx#: [id number] Depacon Inj 750 MG In NS Inj 215.0 / 215.0 215.0 / 215.0 100 ML @ 105 mls/hr IV.SIG Q8HR ESTELA Rx#:[id number] Keppra 1000 mg/100 mL Premix 100 / 100 100 / 100 100 / 100 100 ML @ 400 mls/hr IV.SIG Q12H ESTELA Rx#:[id number] Tube Feeding 0 / 0 380 / 380 Tube Irrigant 60 / 60 Water Bolus Amount 150 / 150 Anesthesia Amount 300 / 300 Output: Urine 900 / 900 Urine Amount (Catheter) 900 / 900 2200 / 2200 Indwelling Urethral Catheter 900 / 900 2200 / 2200 Gastric Drainage 0 / 0 Oral Orogastric Tube 0 / 0 Other: Date of Last Bowel Movement 07/05/18 07/08/18 07/08/18 # Bowel Movements 1 2 # Incontinent Bowel Movements 1 Result Diagrams: 07/07/18 04:04 07/08/18 05:41 Objective Remarks: Neuro: No sedation, orally intubated, PERRL, reactive to light bilaterally. Localizes for 4 limbs. Does not open his eyes to stimulation. ENT: Neck supple. Tracheostomy in place Chest/Pulm: Good air movement bilaterally while on SBT, no wheezing or crackles. CVS: S1-S2 Regular, no murmur, no JVD GI/abdomen: Soft, nontender, nondistended, PEG in place, bowel sounds present, no guarding. Extremities: Warm bilaterally, no edema. Remains well perfused. Assessment and Plan - Assessment and Plan Plan: 67-year-old male with: Status epilepticus ICH/SDH Acute respiratory failure on mechanical ventilation Left humerus fracture History of dementia History of stroke Hypertension Suspected sepsis Plan: Neuro: Continue to hold sedation. Keppra 1 g IV every 12 hourly. Valproate 500 mg IV every 8 hourly switched from p.o. dose at home. Follow valproate level. EVD discontinued 07/04 Cardiovascular: Hold antihypertensives. Maintenance IV fluid. Pulmonary: Continue mechanical ventilation, vent bundle, bronchodilators as needed. Continue spontaneous breathing trials. status post tracheostomy following discussion with legal guardian. GI/liver: Tolerating tube feeds, follow prealbumin weekly. Consulted GI for PEG tube placement-scheduled for 07/07 Renal/: IV hydration, strict intake, monitor and replete electrolytes, follow BUN and creatinine. MSK: Orthopedics consult for left humerus fracture noted - nonoperative management. ID: Pancultures ordered on 07/03 and started on empiric antibiotic coverage with IV Zosyn in view of fevers and bandemia. Sputum culture 07/02: MRSA and Pseudomonas. Added IV Zyvox on 07/04 to cover for MRSA pneumonia, discontinue PIP CARMEN, start cefepime. Endocrine: SSI as needed for glycemic control if needed Heme: Follow CBC. Received K Centra to reverse Eliquis in the ER. Prophylaxis: Pepcid/SCDs. Palliative care following. Patient is DNR status Overall impression: Patient remains critically ill, requiring intubation and mechanical ventilation for treatment of the severe neurologic encephalopathy. Seizure activity appears to be controlled. Unable to wean from ventilator but will continue spontaneous trials daily. Will need tracheostomy and PEG tube if aggressive care continues. Palliative care discussed with patient's POA/legal guardian on 07/04; Underwent tracheostomy and PEG tube placement. Cleared for transfer to LTAC.
--- NOTE | 2018-07-08 18:04 | P.PNPAL ---
Reason for Visit Reason for visit: a. To assist with evaluation and management of symptoms including: pain, altered mental status b. To assist medical decision maker(s) with: better understanding of current medical conditions; weighing benefits/burdens of medical treatment options; making medical treatment decisions. Subjective Subjective/Interval History: Mr. Castillo is a 67-year-old fdc resident with a history of seizures, hypertension, dementia, schizophrenia/bipolar, atrial fibrillation and previous CVA who presented to [place] ED on 06/22/18 after having recurrent seizures s/p two falls. CT head revealed left frontal intraparenchymal bleed with subdural hemorrhage. Patient was also noted to have a left humerus fracture on x-ray. Patient had been on Eliquis, therefore he received K Centra following arrival to the ED. Dr. Jones, neurosurgery, evaluated the patient and ventriculostomy was placed. Follow up visit for symptom management and clarification of medical treatment goals. Patient seen and assessed in [facility],room 1336. A private caregiver/friend is at bedside. Patient remains on PRVC/AC vent mode status post tracheostomy placement on 07/06/2018. Arouses to verbal stimuli; does not consistently follow simple one-step commands. Nursing reports patient remains intermittently agitated. Clinical data 07/08/2018: * Sodium: 142, potassium 3.3, chloride 108, carbon dioxide 28.2, glucose 96, calcium 7.9 * BUN: 10, creatinine 0.58, GFR >89 * Total bilirubin: 0.8, AST 20, ALT 25, alkaline phosphatase 89 * Total protein: 5.9, albumin 2.0 PEG tube placed on 07/07/2018. No signs of active bleeding, drainage or infection. Tolerating Jevity 1.5 at 40 mL's per hour. Patient being transferred to [facility] this afternoon. Transportation via [facility] has been arranged. Per note, patient's guardian has given consent and is aware of the tentative time of transfer. Patient's caregiver plans to meet the patient at [facility]. Family/Friend Interactions: See interval history Advance Directives Health Care Surrogate Name and Number: Lindy Rojo, appointed guardian Documented care wishes:: Patient completed written advanced directives on 06/15/10. A living will states he would not want his life to be prolonged nor would he want life-sustaining treatment to be provided or continued if his agent believed the burdens of the treatment outweigh the expected benefits. He would want his agent to consider the relief of suffering, the expense involved in the quality as well as the possible extension of his life and making decisions concerning life-sustaining treatment. Significant change in goals:: Patient being discharged to [facility] ([facility]) today 07/18/2018. Objective Vital Signs: Vital Signs 07/07/18 17:43 07/07/18 17:45 07/07/18 17:48 Temperature Pulse Rate 63 62 61 Respiratory Rate 14 14 14 Blood Pressure 130/70 130/72 129/73 Pulse Oximetry 100 99 100 07/07/18 17:50 07/07/18 17:53 07/07/18 17:55 Temperature Pulse Rate 59 L 59 L 59 L Respiratory Rate 14 14 13 Blood Pressure 131/72 129/74 131/68 Pulse Oximetry 100 100 99 07/07/18 17:58 07/07/18 18:00 07/07/18 18:03 Temperature Pulse Rate 58 L 57 L 66 Respiratory Rate 14 14 14 Blood Pressure 129/67 130/71 135/76 Pulse Oximetry 100 100 100 07/07/18 18:05 07/07/18 18:08 07/07/18 19:00 Temperature Pulse Rate 60 58 L 60 Respiratory Rate 14 14 14 Blood Pressure 130/73 128/70 130/68 Pulse Oximetry 100 100 100 07/07/18 19:23 07/07/18 19:25 07/07/18 19:28 Temperature Pulse Rate 55 L 65 56 L Respiratory Rate 5 L 13 14 Blood Pressure 117/66 133/71 127/65 Pulse Oximetry 100 100 100 07/07/18 19:30 07/07/18 19:33 07/07/18 19:35 Temperature Pulse Rate 57 L 55 L 56 L Respiratory Rate 12 14 14 Blood Pressure 122/67 123/70 125/71 Pulse Oximetry 100 100 100 07/07/18 19:38 07/07/18 19:40 07/07/18 19:43 Temperature Pulse Rate 55 L 56 L 55 L Respiratory Rate 14 14 14 Blood Pressure 131/75 132/67 118/64 Pulse Oximetry 100 100 100 07/07/18 19:45 07/07/18 20:00 07/07/18 20:18 Temperature Pulse Rate 59 L 56 L Respiratory Rate 13 14 14 Blood Pressure 122/68 138/71 Pulse Oximetry 100 100 100 07/07/18 21:00 07/07/18 22:00 07/07/18 23:00 Temperature Pulse Rate 57 L 63 55 L Respiratory Rate 15 20 14 Blood Pressure 127/73 136/71 128/69 Pulse Oximetry 100 100 100 07/08/18 00:00 07/08/18 01:00 07/08/18 01:21 Temperature Pulse Rate 56 L 56 L Respiratory Rate 14 12 20 Blood Pressure 129/70 130/71 Pulse Oximetry 100 100 100 07/08/18 02:00 07/08/18 03:00 07/08/18 04:00 Temperature 98.3 F Pulse Rate 58 L 59 L 60 Respiratory Rate 11 L 17 14 Blood Pressure 137/71 147/74 H 125/69 Pulse Oximetry 100 100 100 07/08/18 04:02 07/08/18 05:00 07/08/18 05:45 Temperature 98.3 F Pulse Rate 57 L 65 Respiratory Rate 14 14 Blood Pressure 129/70 Pulse Oximetry 100 100 07/08/18 06:00 07/08/18 07:00 07/08/18 08:00 Temperature Pulse Rate 54 L 56 L 54 L Respiratory Rate 14 14 14 Blood Pressure 122/69 115/66 133/72 Pulse Oximetry 100 100 100 07/08/18 08:39 07/08/18 09:00 07/08/18 10:00 Temperature 98.8 F Pulse Rate 54 L 56 L Respiratory Rate 18 12 14 Blood Pressure 113/65 125/69 Pulse Oximetry 100 100 100 07/08/18 11:00 07/08/18 12:00 07/08/18 13:00 Temperature Pulse Rate 56 L 63 64 Respiratory Rate 14 14 15 Blood Pressure 131/69 126/71 126/76 Pulse Oximetry 100 100 100 07/08/18 14:00 07/08/18 15:00 07/08/18 16:00 Temperature Pulse Rate 62 59 L 61 Respiratory Rate 14 14 12 Blood Pressure 130/73 131/72 147/65 H Pulse Oximetry 100 100 100 Intake & Output 07/07/18 07/08/18 07/08/18 18:59 06:59 18:59 Intake Total 2265.0 / 2265.0 1255.0 / 1255.0 1607.5 / 1607.5 Output Total 1800 / 1800 2200 / 2200 Balance 465.0 / 465.0 -945.0 / -945.0 1607.5 / 1607.5 Weight 89 kg Intake: IV 1815.0 / 1815.0 815.0 / 815.0 1607.5 / 1607.5 NS Inj 1,000 ML @ 30 mls/hr IV. 1000 / 1000 1000 / 1000 CONT .Q24H ESTELA Rx#:[id number] Maxipime Inj 2,000 MG In NS Inj 200 / 200 200 / 200 100 / 100 100 ML @ 200 mls/hr IV.SIG Q8H ESTELA Rx#:[id number] Zyvox 600 mg Premix 300 ML @ 300 / 300 300 / 300 300 / 300 300 mls/hr IV.SIG Q12H ESTELA Rx#: [id number] Depacon Inj 750 MG In NS Inj 215.0 / 215.0 215.0 / 215.0 107.5 / 107.5 100 ML @ 105 mls/hr IV.SIG Q8HR ESTELA Rx#:[id number] Keppra 1000 mg/100 mL Premix 100 / 100 100 / 100 100 / 100 100 ML @ 400 mls/hr IV.SIG Q12H ESTELA Rx#:[id number] Tube Feeding 0 / 0 380 / 380 Tube Irrigant 60 / 60 Water Bolus Amount 150 / 150 Anesthesia Amount 300 / 300 Output: Urine 900 / 900 Urine Amount (Catheter) 900 / 900 2200 / 2200 Indwelling Urethral Catheter 900 / 900 2200 / 2200 Gastric Drainage 0 / 0 Oral Orogastric Tube 0 / 0 Other: Date of Last Bowel Movement 07/05/18 07/08/18 07/08/18 # Bowel Movements 1 2 # Incontinent Bowel Movements 1 Physical Exam: CONSTITUTIONAL/GENERAL: This is an adequately nourished patient, in no apparent distress. TUBES/LINES/DRAINS: PIV, PEG, tracheostomy, indwelling Schmid catheter SKIN: No jaundice, rashes, or lesions. Ecchymoses on upper extremities. No wounds seen anteriorly. Skin temperature appropriate. Not diaphoretic. HEAD: Atraumatic. Normocephalic. EYES: Pupils equal and round and reactive. Extraocular motions intact. No scleral icterus. No injection or drainage. Fundi not examined. ENT: Nose without bleeding or purulent drainage. Oral mucosa moist NECK: Tracheostomy in place. Neck supple CARDIOVASCULAR: Regular rate and rhythm without murmurs, gallops, or rubs. No JVD. Peripheral pulses symmetric. RESPIRATORY/CHEST: Symmetric, unlabored respirations. Clear to auscultation. Breath sounds equal bilaterally. No wheezes, rales, or rhonchi. GASTROINTESTINAL: Abdomen soft, non-tender, nondistended. PEG in place, dressing dry and intact. Bowel sounds active. No guarding. GENITOURINARY: Without palpable bladder distension. Schmid catheter in place. MUSCULOSKELETAL: Extremities without clubbing, cyanosis, or edema. No mottling or clubbing. Remains well perfused LYMPHATICS: No palpable cervical or supraclavicular adenopathy. NEUROLOGICAL: Arouses to verbal stimuli. Does not consistently follow simple one-step commands PSYCHIATRIC: No obvious anxiety/depression on exam. No apparent hallucinations or other psychotic thought process. Diagnostic Tests Laboratory: Laboratory Results - last 72 hr 07/06/18 07/07/18 07/07/18 04:52 04:04 04:04 WBC 10.7 RBC 3.24 L Hgb 10.2 L Hct 30.1 L MCV 92.8 MCH 31.6 MCHC 34.0 RDW 12.3 Plt Count 194 D MPV 6.5 L Prelim Diff (Auto) Slide review pending Neut % (Auto) 68.2 Lymph % (Auto) 12.2 Dundy % (Auto) 18.3 H Eos % (Auto) 0.9 Baso % (Auto) 0.4 Neut # (Auto) 7.3 Lymph # (Auto) 1.3 Dundy # (Auto) 2.0 H Eos # (Auto) 0.1 Baso # (Auto) 0.0 WBC Differential Manual diff final Seg Neuts % (Manual) 59 Band Neuts % (Manual) 17 H Lymphocytes % (Manual) 6 L Monocytes % (Manual) 12 H Eosinophils % (Manual) 2 Metamyelocytes % (Man) 1 Myelocytes % (Man) 3 H Abs Neuts (Manual) 8.6 H Differential Comment . Platelet Estimate Normal Platelet Morphology Normal Sodium 140 142 Potassium 3.6 D 3.3 L Chloride 106 106 Carbon Dioxide 29.1 30.2 Anion Gap 5 6 BUN 9 8 Creatinine 0.47 L 0.47 L Estimated GFR Greater than 89 Greater than 89 Random Glucose 98 82 Calcium 7.4 L* 7.7 L Calcium Adj for Albumin 8.5 Total Bilirubin 0.2 0.3 AST 24 20 ALT 26 24 Alkaline Phosphatase 94 82 Total Protein 5.2 L D 5.3 L Albumin 1.7 L 1.9 L Valproic Acid Levetiracetam 07/07/18 07/07/18 07/07/18 09:43 09:43 15:03 WBC RBC Hgb Hct MCV MCH MCHC RDW Plt Count MPV Prelim Diff (Auto) Neut % (Auto) Lymph % (Auto) Dundy % (Auto) Eos % (Auto) Baso % (Auto) Neut # (Auto) Lymph # (Auto) Dundy # (Auto) Eos # (Auto) Baso # (Auto) WBC Differential Seg Neuts % (Manual) Band Neuts % (Manual) Lymphocytes % (Manual) Monocytes % (Manual) Eosinophils % (Manual) Metamyelocytes % (Man) Myelocytes % (Man) Abs Neuts (Manual) Differential Comment Platelet Estimate Platelet Morphology Sodium 142 Potassium 4.0 Chloride 107 Carbon Dioxide 28.3 Anion Gap 7 BUN 10 Creatinine 0.58 L Estimated GFR Greater than 89 Random Glucose 83 Calcium 7.8 L Calcium Adj for Albumin Total Bilirubin 0.3 AST 24 ALT 25 Alkaline Phosphatase 83 Total Protein 6.0 L D Albumin 2.0 L Valproic Acid 66 Levetiracetam 30.7 07/08/18 05:41 WBC RBC Hgb Hct MCV MCH MCHC RDW Plt Count MPV Prelim Diff (Auto) Neut % (Auto) Lymph % (Auto) Dundy % (Auto) Eos % (Auto) Baso % (Auto) Neut # (Auto) Lymph # (Auto) Dundy # (Auto) Eos # (Auto) Baso # (Auto) WBC Differential Seg Neuts % (Manual) Band Neuts % (Manual) Lymphocytes % (Manual) Monocytes % (Manual) Eosinophils % (Manual) Metamyelocytes % (Man) Myelocytes % (Man) Abs Neuts (Manual) Differential Comment Platelet Estimate Platelet Morphology Sodium 142 Potassium 3.3 L Chloride 108 H Carbon Dioxide 28.2 Anion Gap 6 BUN 10 Creatinine 0.58 L Estimated GFR Greater than 89 Random Glucose 96 Calcium 7.9 L Calcium Adj for Albumin Total Bilirubin 0.3 AST 20 ALT 25 Alkaline Phosphatase 89 Total Protein 5.9 L Albumin 2.0 L Valproic Acid Levetiracetam Result Diagrams: 07/07/18 04:04 12/04/18 05:41 Microbiology: Microbiology 07/02/18 20:55 Aerobic Blood Culture - Final Blood - Peripheral No growth in 5 days Anaerobic Blood Culture - Final No growth in 5 days 07/02/18 21:01 Aerobic Blood Culture - Final Blood - Peripheral No growth in 5 days Anaerobic Blood Culture - Final No growth in 5 days Imaging: Shoulder X-Ray 06/24/18 09:42 CONCLUSION: Acute nondisplaced humeral neck fracture. Head CT 07/04/18 06:00 CONCLUSION: 1. Interval decrease in the acute blood products in the right frontal lobe and decrease in the intraventricular blood products. 2. The right frontal ventricular catheter tip is only barely within the right frontal horn. 3. Other stable brain changes include generalized atrophy with bilateral areas of encephalomalacia. . Chest X-Ray 07/06/18 11:00 CONCLUSION: 1. The tracheostomy tube and NG tube are in good position. 2. No evidence of pneumothorax. 3. Mild atelectasis right lung base. Procedures: 06/24/2018: Endotracheal intubation 06/24/2018: NGT placement 06/24/2018: Ventriculostomy placement 07/06/2018: Tracheostomy placement 07/07/2018: PEG tube placement Assessment and Plan - Disease Oriented Problem List (1) Intractable seizure disorder (2) ICH (intracerebral hemorrhage) (3) Encephalomalacia (4) Dementia Pertinent Non-Medical Issues: Psychosocial: Per review of notes: Patient was born in [place], [place]. He moved to [place] in 2011. Both of his parents are . His father from complications of liver cirrhosis at an unknown age, and his mother of cancer when he was an infant. He was raised by his grandparents. He has no known siblings. Mr. castillo has been and 2 times. Patient reportedly had one daughter, Sharon. She approximately 2 years ago. 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 Patient has had multiple psychiatric hospitalizations. Spiritual: Baptized Anabaptism, however there is no current active mandaen affiliation. Legal: Per [place] statutes, in the absence of written advanced directives healthcare proxy decision making falls to the patient's daughter-Sharon. Ethical issues impacting care: No known ethical issues impacting care at this time. Important Contacts: Lindy Rojo, guardian: [phone] Prognosis: Mr. castillo is a 67-year-old fdc resident with a history of seizures, previous CVA hypertension, dementia, schizophrenia/bipolar and atrial fibrillation who was hospitalized with a subdural hemorrhage and fractured left. Being discharged to [facility] today status post tracheostomy and PEG tube placement earlier this week. Patient's functional status was poor at baseline and has now deteriorated further. He will remain at risk for further complications and decline. Code Status: Alternative Code (Intubation only) Plan: * ALTERNATE CODE-intubation only * Patient completed written advanced directives on 06/15/10. His living will states he would not want his life to be prolonged nor would he want life- sustaining treatment to be provided or continued if his agent believed the burdens of the treatment outweighed the expected benefits. He would want his agent to consider the relief of suffering, the expense involved and the quality as well as the possible extension of his life in making decisions concerning life-sustaining treatment. * Lindy Rojo is the patient's appointed guardian. * Patient discussed with the [facility] nurse, Leslye. * Being discharged to [facility] today status post tracheostomy and PEG tube placement earlier this week. * Symptom management-pain: Potential causes of pain include recent falls, left humerus fracture, invasive lines etc. PRN morphine 2-4 mg is available every 4 hours as needed for pain. No PRNs administered within the past 24 hours he is unable to make his needs known. Continue to monitor for non-verbal s/s of pain. * Symptom management-altered mental status: Multi-factorial Patient has a baseline history of dementia, schizophrenia/bipolar and previous CVA. Recent CT head on 06/24/2018 showed an acute intraparenchymal hemorrhage involving the right frontal lobe, right temporal lobe and acute subdural hemorrhage involving the right frontal lobe and interhemispheric fissure. There was no mass-effect. Multiple areas of encephalomalacia were stable. Ileostomy and PEG tube were placed given ongoing encephalopathy. Patient arouses to verbal stimuli; did not consistently follow simple one-step commands on exam. * Palliative care will continue to follow this patient throughout his hospitalization to establish trust, assist with symptom management and clarification of medical treatment goals. Attestation Attestation: To help prompt me to consider important information that might be impacting today's encounter and assessment, information from prior notes written by myself or my colleagues may have been "brought forward" into today's note. My signature on this note, however, is an attestation that I personally performed the exam, history, and/or decision-making noted today, and, unless otherwise indicated, the interactions with patient, family, and staff as well as the review of records all occurred today. I also attest that the listed assessment and stated plan reflect my best clinical judgment today based on the combination of historical information, prior notes, and today's exam/ interactions. When time spent is documented, it refers only to time spent today by the signer, or if indicated, combined time spent today by collaborating physician/nurse practitioner.
--- NOTE | 2018-07-09 10:37 | P.PCN ---
Date of procedure: 07/06/18 Procedure: Percutaneous Dilation Tracheostomy Tube Placement Diagnosis: Chronic respiratory failure Indications: Chronic respiratory failure requiring persistent mechanical ventilation Anesthesia: Versed, fentanyl IV Neuromuscular Blockade: Rocuronium IV Anesthesia was provided by the bedside RN Description of the Procedure: The patient was sedated and paralyzed. The patient was positioned in the supine position with a chest roll. The patient's neck was slightly extended. Landmarks were palpated and the anatomy of the anterior neck was deemed normal. A time out procedure was performed. The patient was placed on a volume control mode of ventilation, on 100% FiO2. The patient was prepped and draped sterilely. A bronchoscope was inserted into the endotracheal tube for endoscopic guidance (see separate bronchoscopy procedure note). After negative aspiration, 1% lidocaine with 1:100k epinephrine was injected subcutaneously in the midline neck using a 21g needle for local anesthesia. An approximately 2cm skin incision was made using a #15 blade. The cricoid cartilage, thyroid tissue , and tracheal rings were palpated in the midline. Under direct bronchoscopic guidance, the cuff of the endotracheal tube was deflated and the endotracheal tube was retracted to a level above the level of the skin incision. At this point, a 15g introducer needle/catheter was advanced midline under negative aspiration with saline filled syringe until bubbles were seen and the needle and catheter were visualized in the lumen of the trachea. The needle was withdrawn leaving the catheter in place. A 0.052 in diameter J-shaped guidewire was advanced through the catheter into the lumen of the trachea, under direct bronchoscopic visualization. Using a modified Seldinger technique , a 14 Fr, 4.5 cm introducer dilator was used, followed by a Blue Rhino Percutaneous Tracheostomy Dilator, and finally a 28 Fr tracheostomy loading catheter with 8.0 Cuffed Shiley tracheostomy tube. The loading catheter and guidewire were removed and the tracheostomy tube was confirmed in the lumen of the trachea with bronchoscopy, end-tidal CO2, and returning volumes on the ventilator. The tracheostomy was sewn to the skin with interrupted 2.0 Prolene sutures, and a tracheostomy tie was applied to the skin. There were no immediate complications. There was minimal EBL. A chest x-ray has been ordered. Emergency Vehicle Technician: Dr. Thompson Antunez I personally performed the procedure.
== END 2018-07-08 19:45 | disposition short-term general hospital (02) ==
LOC: NEPC 07:53 → NEDA 11:23 → N03 12:44
PROVIDERS: ADMIT Internal Medicine Critical Care Medicine; ATTEND Internal Medicine Critical Care Medicine
PROC: PANENDO (2018-07-07 16:42)